=== PATIENT | female | born 1935 | race Caucasian/White ===

== ENCOUNTER 2016-10-02 09:32 | Inpatient (IN) | payer MEDICARE ==
[2016-10-02 09:39] VITALS: BMI 30.9
[2016-10-02] MEDS ORDERED: Sodium Chloride 0.9% 1,000 ML IV STA ×2 (10:31→12:37)
--- NOTE | 2016-10-02 10:41 | ED PDOC ---
HPI: Abdomen Time Seen by Provider: 10/02/16 09:56 Chief Complaint (Nursing): GI Problem Chief Complaint (Provider): GI Problem History Per: Patient, Family History/Exam Limitations: clinical condition Onset/Duration Of Symptoms: Hrs Current Symptoms Are (Timing): Still Present Severity: None Associated Symptoms: Nausea, Vomiting, Diarrhea Exacerbating Factors: None Alleviating Factors: None Additional Complaint(s): Patient is a 81 year old female who presents to ED via EMS for vomiting and diarrhea this morning. History is limited via patient secondary to dementia, history primary obtained by daughter. Reports patient had 4 episodes of non bloody vomiting and 4 episodes of watery non bloody diarrhea with no abdominal pain. Denies fever or chills. Currently in ED reports a headache but notes a history of migraines. PMD:Dr. 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), Dementia, Depression, Diabetes, Fractures (Right wrist and elbow), Gastritis, HTN, Hypercholesterolemia, Hypothyroidism, Migraine, TIA (2013) Denies: Arthritis, HIV, Chronic Kidney Disease Comment Only: Diverticulitis (Diverticulosis) - Surgical History Surgical History: Tonsillectomy (partial thyroidectomy) Denies: CABG - Family History Family History: States: Unknown Family Hx - Living Arrangements Living Arrangements: With Family - Home Medications Home Medications: Ambulatory Orders Medication Instructions Recorded Acetaminophen/Butalbital/Caf 1 tab PO Q8H PRN 08/23/15 [Fioricet] Atorvastatin [Lipitor] 40 mg PO HS 08/23/15 Brimonidine Tartrate/Timolol 1 drop BOTHEYES BID 08/23/15 [Combigan 0.2%-0.5% Eye Drops] Cholecalciferol [Vitamin D 1000 IU] 1,000 units PO DAILY 08/23/15 Clopidogrel [Plavix] 75 mg PO DAILY 08/23/15 Donepezil [Aricept] 10 mg PO HS 08/23/15 Insulin Aspart Protam & Aspart 10 units SC HS 08/23/15 [Novolog Mix 70-30 Vial] Latanoprost 0.005% Opht [Xalatan 1 drop EACHEYE HS 08/23/15 Opht] Levothyroxine [Synthroid] 75 mcg PO DAILY 08/23/15 Meclizine HCl [Antivert] 25 mg PO TID 08/23/15 Memantine [Namenda] 10 mg PO BID 08/23/15 Prednisolone Acetate [Pred Forte] 1 drop BOTHEYES QID 08/23/15 Ramipril 5 mg PO DAILY 08/23/15 Ranitidine HCl [Zantac] 150 mg PO BID 08/23/15 Sertraline [Zoloft] 50 mg PO HS 08/23/15 Docusate [Colace] 200 mg PO HS 10/02/16 Insulin Aspart/Insulin Aspar 50 unit SC BRK 10/02/16 [Novolog Mix 70/30 (70/30 units/ml)] Metoprolol Tartrate [Lopressor] 12.5 mg PO DAILY 10/02/16 Moxifloxacin HCl [Vigamox] 1 drop EACHEYE Q1H 10/02/16 Omeprazole [Omeprazole] 20 mg PO DAILY 10/02/16 cycloSPORINE [Restasis] 1 drop EACHEYE Q12H 10/02/16 - Allergies Allergies/Adverse Reactions: Allergies Allergy/AdvReac Type Severity Reaction Status Date / Time aspirin Allergy NAUSEA Verified 10/02/16 09:59 Sulfa (Sulfonamide Allergy RASH Verified 10/02/16 09:59 Antibiotics) metformin AdvReac DIARRHEA Verified 10/02/16 09:59 Review of Systems ROS Statement: Except As Marked, All Systems Reviewed And Found Negative Constitutional: Negative for: Fever, Chills Cardiovascular: Negative for: Chest Pain Gastrointestinal: Positive for: Nausea, Vomiting, Diarrhea Musculoskeletal: Negative for: Neck Pain Skin: Negative for: Rash Neurological: Positive for: Headache. Negative for: Weakness, Numbness Physical Exam - Reviewed Nursing Documentation Reviewed: Yes Vital Signs Reviewed: Yes - Physical Exam Appears: Positive for: Non-toxic, Uncomfortable Skin: Positive for: Warm, Pallor Eye Exam: Positive for: Normal appearance (chronically blind) Neck: Positive for: Normal, Painless ROM Cardiovascular/Chest: Positive for: Regular Rate, Rhythm. Negative for: Murmur Respiratory: Positive for: Normal Breath Sounds. Negative for: Respiratory Distress Pulses-Radial (L): 2+ Pulses-Radial (R): 2+ Gastrointestinal/Abdominal: Positive for: Normal Exam. Negative for: Tenderness , Distended Extremity: Positive for: Normal ROM. Negative for: Pedal Edema, Calf Tenderness Neurologic/Psych: Positive for: Alert (baseline dementia ), Oriented - Laboratory Results Result Diagrams: 10/02/16 10:40 10/02/16 11:57 - ECG O2 Sat by Pulse Oximetry: 100 (RA) Pulse Ox Interpretation: Normal Medical Decision Making Medical Decision Making: Time: 1030 Initial impression: Acute gastroenteritis, pancreatitis, diverticulitis, SBO, UTI, dehydration, vasal vagus near syncope associated with dehydration Initial plan: -- VBG -- CT-abdomen -- CMP -- Lipase -- Troponin -- CBC -- NSF, Zofran -- Blood culture Time: 1510 CT-abdomen results reviewed PROCEDURE: CT Abdomen and Pelvis without intravenous contrast HISTORY: vomiting and diarrhea COMPARISON: 07/18/2016. TECHNIQUE: Technique. Contrast Dose: Radiation dose: Total exam DLP = 1055 mGy-cm. This CT exam was performed using one or more of the following dose reduction techniques: Automated exposure control, adjustment of the mA and/or kV according to patient size, and/or use of iterative reconstruction technique. FINDINGS: LOWER THORAX: Unremarkable. LIVER: Unremarkable. No gross lesion or ductal dilatation. GALLBLADDER AND BILE DUCTS: Unremarkable. PANCREAS: Unremarkable. No gross lesion or ductal dilatation. SPLEEN: Unremarkable. ADRENALS: Unremarkable. No mass. KIDNEYS AND URETERS: Unremarkable. No hydronephrosis. No solid mass. VASCULATURE: Unremarkable. No aortic aneurysm. BOWEL: Unremarkable. No obstruction. No gross mural thickening. APPENDIX: Unremarkable. Normal appendix. PERITONEUM: Unremarkable. No free fluid. No free air. LYMPH NODES: Unremarkable. No enlarged lymph nodes. BLADDER: Unremarkable. REPRODUCTIVE: Pessary in place. Stable left ovarian cyst measuring 2.2 cm.. BONES: No acute fracture. OTHER FINDINGS: None. IMPRESSION: No acute findings. Scribe Attestation: Documented by Ayaka Mascorro acting as a scribe for Ricky Dennis MD MD Scribe Attestation: All medical record entries made by the Scribe were at my direction and personally dictated by me. I have reviewed the chart and agree that the record accurately reflects my personal performance of the history, physical exam, medical decision making, and the department course for this patient. I have also personally directed, reviewed, and agree with the discharge instructions and disposition. Disposition - Clinical Impression Clinical Impression: Gastroenteritis, Sepsis, Severe sepsis - Patient ED Disposition Is Patient to be Admitted: Yes Discussed With Dr.: Morris Mcginnis Doctor Will See Patient In The: ED Counseled Patient/Family Regarding: Studies Performed, Diagnosis - Disposition Disposition Time: 15:30 Condition: FAIR - Pt Status Changed To: Hospital Disposition Of: Inpatient - Admit Certification Admit to Inpatient:: After my assessment, the patient will require hospitalization for at least two midnights. This is because of the severity of symptoms shown, intensity of services needed, and/or the medical risk in this patient being treated as an outpatient. - POA Present On Arrival: Poor Glycemic Control
[2016-10-02 10:47] LABS: BASO # 0.1 K/uL (0.0-0.2); BASO % 0.3 % (0.0-2.0); EOS # 0.1 K/uL (0.0-0.7); EOS % 0.5 % (0.0-4.0); LYMPH # 1.5 K/uL (1.0-4.3); LYMPH % 7.7 % (20.0-40.0); MEAN CELL VOLUME 89.4 fl (81.0-99.0); MEAN CORPUSCULAR HEMOGLOBIN 29.8 pg (27.0-31.0); MEAN CORPUSCULAR HGB CONC 33.3 g/dL (33.0-37.0); MEAN PLATELET VOLUME 10.6 fl (7.2-11.7); MONO # 1.9 K/uL (0.0-0.8); MONO % 9.9 % (0.0-10.0); NEUT % 81.6 % (50.0-75.0); NRBC % 0.1 % (0.0-0.0); PLATELET COUNT 352 K/uL (130-400); RED CELL DISTRIBUTION WIDTH 13.6 % (11.5-14.5)
[2016-10-02 10:49] LABS: WHITE BLOOD COUNT 19.6 K/uL (4.8-10.8)
[2016-10-02 11:23] LABS: VENOUS BLOOD GAS BASE EXCESS -0.2 mmol/L (0.0-2.0); VENOUS BLOOD GAS PCO2 47 mmHg (40-60); VENOUS BLOOD PH 7.35 (7.32-7.43)
[2016-10-02 11:53] LABS: NEUTROPHIL 78 % (42-75); TOTAL CELLS COUNTED 100
[2016-10-02 12:22] LABS: ALKALINE PHOSPHATASE 87 U/L (38-126); ALT/SGPT 25 U/L (9-52); AST/SGOT 38 U/L (14-36); BILIRUBIN,TOTAL 0.4 mg/dl (0.2-1.3); BLOOD UREA NITROGEN 26 mg/dl (7-17); CALCIUM 8.9 mg/dL (8.4-10.2); CARBON DIOXIDE 27 mmol/L (22-30); CHLORIDE 102 mmol/L (98-107); GFR AFRICAN-AMERICAN > 60; GLUCOSE,RANDOM 172 mg/dL (65-105); POTASSIUM 4.4 MMOL/L (3.6-5.0); SODIUM 142 mmol/l (132-148); TOTAL PROTEIN 7.6 G/DL (6.3-8.2)
[2016-10-02] MEDS ORDERED: Piperacillin/Tazobact 3.375 GM in Sodium Chloride 0.9% 100 ML IVPB STA (12:37)
[2016-10-02] MEDS ORDERED: Piperacillin/Tazobact 3.375 gm Inj IVPB ONE (12:53)
[2016-10-02] MEDS ORDERED: Vancomycin 1 g Inj ONE (12:54)
[2016-10-02] MEDS ORDERED: Iohexol 300 100 ML IJ ONE (13:48)
[2016-10-02] MEDS ORDERED: Sodium Chloride 0.9% 50 ML IV ONE (13:48)
--- NOTE | 2016-10-02 14:58 | CT ---
PROCEDURE: CT Abdomen and Pelvis without intravenous contrast HISTORY: vomiting and diarrhea COMPARISON: 07/18/2016. TECHNIQUE: Technique. Contrast Dose: Radiation dose: Total exam DLP = 1055 mGy-cm. This CT exam was performed using one or more of the following dose reduction techniques: Automated exposure control, adjustment of the mA and/or kV according to patient size, and/or use of iterative reconstruction technique. FINDINGS: LOWER THORAX: Unremarkable. LIVER: Unremarkable. No gross lesion or ductal dilatation. GALLBLADDER AND BILE DUCTS: Unremarkable. PANCREAS: Unremarkable. No gross lesion or ductal dilatation. SPLEEN: Unremarkable. ADRENALS: Unremarkable. No mass. KIDNEYS AND URETERS: Unremarkable. No hydronephrosis. No solid mass. VASCULATURE: Unremarkable. No aortic aneurysm. BOWEL: Unremarkable. No obstruction. No gross mural thickening. APPENDIX: Unremarkable. Normal appendix. PERITONEUM: Unremarkable. No free fluid. No free air. LYMPH NODES: Unremarkable. No enlarged lymph nodes. BLADDER: Unremarkable. REPRODUCTIVE: Pessary in place. Stable left ovarian cyst measuring 2.2 cm.. BONES: No acute fracture. OTHER FINDINGS: None. IMPRESSION: No acute findings.
[2016-10-02 17:38] LABS: VENOUS BLOOD GAS BASE EXCESS 1.3 mmol/L (0.0-2.0); VENOUS BLOOD GAS PCO2 47 mmHg (40-60); VENOUS BLOOD PH 7.37 (7.32-7.43)
[2016-10-02] MEDS ORDERED: Patient's Own Med (Brimonidine Tartrate/Timolol [Combigan 0.2%-0.5% Eye Drops] 1 DROP) BOTHEYES SCH (20:00)
[2016-10-02] MEDS: Dextrose 5%/Lactated Ringer's 1,000 ML IV SCH (20:44)
[2016-10-02] MEDS: Piperacillin/Tazobact 3.375 GM in Sodium Chloride 0.9% 100 ML IVPB SCH (21:49)
[2016-10-02] MEDS: Latanoprost 0.005% Opht SOUTION OU SCH (21:50)
[2016-10-02] MEDS: PrednisoLONE 1% OPTH SUSP OU SCH (21:50)
[2016-10-02] MEDS: Insulin Regular 100 units/ml SC SCH (22:03)
[2016-10-02] MEDS: Brimonidine 0.2% 50 DROP/5 ML BOTTLE OU SCH (22:26)
[2016-10-03] MEDS: Insulin Regular 100 units/ml SC SCH ×4 (06:22→23:13)
--- NOTE | 2016-10-03 06:54 | CP.PCM.HP ---
History of Present Illness - History of Present Illness History of Present Illness: 81F seen and examined at bedside with attending. Daughter at bedside and provides history. Pt admitted last night and seen this morning. Daughter reports mother was in usual state of health when she developed acute onset of NBNB vomiting and non- bloody diarrhea after "eating a lot of fruit with the sitter". Daughter denies any prodrome of fevers, chills, urinary symptoms, sick contacts, but is positive for antibiotic use for UTI. 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), Hypothyroid (after surgery), Pancreatic Mass, currently RIGHT corneal ulcer PSH: b/l corneal transplant, partial thyroidectomy, Rt breast lumpectomy (benign ) Allergies: ASA, Metformin, Sulfa drugs Medications: See Med Rec Present on Admission - Present on Admission Any Indicators Present on Admission: No Review of Systems - Review of Systems Review of Systems: As per HPI Past Patient History - Infectious Disease Hx of Infectious Diseases: None - Tetanus Immunizations Tetanus Immunization: Unknown - Past Medical History & Family History Past Medical History?: Yes - Past Social History Smoking Status: Never Smoked - CARDIAC Hx Cardiac Disorders: Yes (high cholesterol, HTN) Hx Hypercholesterolemia: Yes Hx Hypertension: Yes - PULMONARY Hx Respiratory Disorders: No - NEUROLOGICAL Hx Neurological Disorder: Yes (TIA, dementia, migraine) Hx Alzheimer's Disease: Yes HX Cerebrovascular Accident: Yes Hx Dementia: Yes - HEENT Hx HEENT Problems: Yes - RENAL Hx Chronic Kidney Disease: No - ENDOCRINE/METABOLIC Hx Endocrine Disorders: Yes (DM) Hx Diabetes Mellitus Type 2: Yes - HEMATOLOGICAL/ONCOLOGICAL Hx Blood Disorders: No Hx Blood Transfusions: No Hx Human Immunodeficiency Virus (HIV): No - INTEGUMENTARY Hx Dermatological Problems: Yes - MUSCULOSKELETAL/RHEUMATOLOGICAL Hx Musculoskeletal Disorders: Yes Hx Arthritis: No Hx Falls: Yes Hx Fractures: Yes (Right wrist and elbow) - GASTROINTESTINAL Hx Gastrointestinal Disorders: Yes Hx Diverticulitis: Yes (Diverticulosis) Hx Gastritis: Yes - GENITOURINARY/GYNECOLOGICAL Hx Genitourinary Disorders: Yes Hx Incontinence: Yes - PSYCHIATRIC Hx Psychophysiologic Disorder: Yes (anxiety, depression) Hx Anxiety: Yes Hx Depression: Yes Hx Substance Use: No - SURGICAL HISTORY Hx Surgeries: Yes Hx Coronary Artery Bypass Graft: No Hx Thyroidectomy: Yes Hx Tonsillectomy: Yes (partial thyroidectomy) - ANESTHESIA Hx Anesthesia: Yes Hx Anesthesia Reactions: Yes (HALLUCINATION, CONFUSION) Hx Malignant Hyperthermia: No Meds Allergies/Adverse Reactions: Allergies Allergy/AdvReac Type Severity Reaction Status Date / Time aspirin Allergy NAUSEA Verified 10/02/16 09:59 Sulfa (Sulfonamide Allergy RASH Verified 10/02/16 09:59 Antibiotics) metformin AdvReac DIARRHEA Verified 10/02/16 09:59 Physical Exam - Constitutional Appears: Well, Non-toxic, No Acute Distress - Head Exam Head Exam: ATRAUMATIC, NORMAL INSPECTION - Eye Exam Eye Exam: EOMI. absent: Normal appearance (opacity in b/l eyes) - ENT Exam ENT Exam: Mucous Membranes Moist, Normal Exam - Neck Exam Neck exam: Positive for: Normal Inspection. Negative for: Lymphadenopathy - Respiratory Exam Respiratory Exam: Clear to Auscultation Bilateral, NORMAL BREATHING PATTERN. absent: Rales, Wheezes - Cardiovascular Exam Cardiovascular Exam: REGULAR RHYTHM. absent: JVD - GI/Abdominal Exam GI & Abdominal Exam: Normal Bowel Sounds, Soft. absent: Tenderness - Extremities Exam Extremities exam: Positive for: normal capillary refill, normal inspection, pedal pulses present. Negative for: pedal edema - Neurological Exam Neurological exam: Alert (Baseline dementia) - Psychiatric Exam Psychiatric exam: Normal Affect, Normal Mood - Skin Skin Exam: Normal Color, Warm Results - Vital Signs Recent Vital Signs: Last Vital Signs Temp 36.9 C 10/03/16 04:45 Pulse 61 10/03/16 04:45 Resp 20 10/03/16 04:45 BP 145/77 10/03/16 04:45 Pulse Ox 98 10/03/16 04:45 - Labs Result Diagrams: 10/03/16 06:50 10/03/16 08:09 Labs: Laboratory Results - last 24 hr 10/02/16 10/02/16 10/03/16 17:30 21:53 05:02 pO2 30 VBG pH 7.37 VBG pCO2 47 VBG HCO3 24.8 VBG O2 Sat (Calc) 64.5 VBG Base Excess 1.3 POC Glucose (mg/dL) 144 H 201 H Assessment & Plan (1) Nausea, vomiting, and diarrhea Assessment and Plan: Likely a mild gastroenteritis with corresponding volume depletion and stress leukocytosis all of which have resolved. Unlikely requires antibiotics, but will await Dr Berger's recommendations. CT negative for acute pathology, repeat Lactate- 1.1 - ID Consult (Dr Berger) - Start PO intake - discontinue IVF - Vanc/Zosyn Status: Acute (2) DVT prophylaxis Assessment and Plan: Lovenox 40mg, SC, Daily Status: Acute (3) Diabetes Assessment and Plan: Controlled - SSI - Accu-check - Hypoglycemia Bundle Status: Chronic (4) Hypertension Assessment and Plan: Controlled, c/w home medications Status: Chronic (5) Hypothyroidism (acquired) Assessment and Plan: chronic, c/w home medications Status: Chronic (6) CVA (cerebral vascular accident) Assessment and Plan: Stable no motor deficits only the dementia, c/w Plavix Status: Chronic
[2016-10-03 07:21] LABS: MEAN CELL VOLUME 89.9 fl (81.0-99.0); MEAN CORPUSCULAR HEMOGLOBIN 29.8 pg (27.0-31.0); MEAN CORPUSCULAR HGB CONC 33.2 g/dL (33.0-37.0); RED CELL DISTRIBUTION WIDTH 13.5 % (11.5-14.5); WHITE BLOOD COUNT 10.6 K/uL (4.8-10.8)
[2016-10-03 08:40] LABS: ALKALINE PHOSPHATASE 87 U/L (38-126); ALT/SGPT 24 U/L (9-52); AST/SGOT 30 U/L (14-36); BILIRUBIN,TOTAL 0.4 mg/dl (0.2-1.3); BLOOD UREA NITROGEN 19 mg/dl (7-17); CALCIUM 8.6 mg/dL (8.4-10.2); CARBON DIOXIDE 23 mmol/L (22-30); CHLORIDE 105 mmol/L (98-107); GFR AFRICAN-AMERICAN > 60; GLUCOSE,RANDOM 190 mg/dL (65-105); POTASSIUM 4.2 MMOL/L (3.6-5.0); SODIUM 142 mmol/l (132-148); TOTAL PROTEIN 7.1 G/DL (6.3-8.2)
[2016-10-03] MEDS ORDERED: Pantoprazole 40 mg EC Tab PO SCH (09:00)
[2016-10-03] MEDS ORDERED: Vancomycin 1 g Inj IVPB SCH (09:00)
[2016-10-03] MEDS: Brimonidine 0.2% 50 DROP/5 ML BOTTLE OU SCH ×2 (09:33→16:35)
[2016-10-03] MEDS: Dextrose 5%/Lactated Ringer's 1,000 ML IV SCH (09:35)
[2016-10-03] MEDS: Levothyroxine 75 MCG TAB PO SCH (09:36)
[2016-10-03] MEDS: PrednisoLONE 1% OPTH SUSP OU SCH ×3 (09:36→16:37)
[2016-10-03] MEDS: Piperacillin/Tazobact 3.375 GM in Sodium Chloride 0.9% 100 ML IVPB SCH ×2 (09:37→21:35)
[2016-10-03] MEDS ORDERED: Glucagon Recombinant 1 mg Inj IM PRN (10:26)
[2016-10-03] MEDS ORDERED: Dextrose 50% SYRINGE Inj (50 ml) IV PRN (10:26)
[2016-10-03] MEDS: Enoxaparin 40 mg Syringe SC SCH (16:41)
--- NOTE | 2016-10-03 18:55 | CON ---
DATE: 10/03/2016 On in room 406, bed 2. HISTORY OF PRESENT ILLNESS: The patient is an 81-year-old female who was admitted last night after having had awakened that morning and had some nausea, vomiting and diarrhea. She apparently had a significant amount of vomiting with un-digested food and according to daughter, who gave the history, had a significant amount of eating the night before. The diarrhea was in at least 4 times, but there was no blood. According to the daughter, there is no history of fever or chills. On history she had been taking antibiotics in June. Of note, the patient is blind. PAST MEDICAL HISTORY: Includes hypertension, diabetes, dementia, CVA, deficit apparently is dementia. She has a bladder prolapse with pessary in place, also has a pancreatic mass according to the history, not noted on the CT scan. PHYSICAL EXAMINATION: GENERAL: The patient is awake and responsive, but does not respond appropriately. Again history was taken from the daughter. NECK: Supple. LUNGS: There are decreased breath sounds at bases, but no wheezes or rhonchi. HEART: Regular sinus rhythm. ABDOMEN: Basically soft with positive bowel sounds. Does not appear to have any tenderness. EXTREMITIES: No C/C/E. NEUROLOGIC: Basically dementia. LABORATORY DATA: Cultures are pending; those that were taken are so far negative. BUN 19, creatinine 0.7, GFR greater than that 60. Blood sugars are elevated at 297. White count was 19.6 on admission, today was 10.6. There is a left shift. ESR is 51. CT scan impression: Normal CT scan. IMPRESSION: The patient has improved today. There is no nausea or vomiting, according to the daughter, has not had diarrhea today and it appears to be resolving. History of diabetes which is noted and hypothyroidism and is on medications. Her white count has gone down significantly. The patient is doing quite well so far, likely an acute gastroenteritis versus basically food poisoning. I have ordered stool cultures. Will discontinue vancomycin and will continue with Zosyn for the present time and re evaluatewithin 48 hours Mega Berger MD cc: 61 TT: 10/03/2016 18:54:59 Confirmation # [id number] Dictation # [id number] MTDD
[2016-10-03 20:05] VITALS: RESP 18
[2016-10-03] MEDS: MOXIFLOXACIN HCL EACHEYE SCH ×5 (21:31→23:10)
[2016-10-03] MEDS: Latanoprost 0.005% Opht SOUTION OU SCH (21:33)
[2016-10-03 22:38] LABS: PH,URINE 5.5 (5.0-8.0); URINE BILIRUBIN NEGATIVE (NEGATIVE); URINE BLOOD NEGATIVE (NEGATIVE); URINE COLOR YELLOW (YELLOW); URINE GLUCOSE (UA) 500 mg/dL (Normal); URINE KETONE NEGATIVE (NEGATIVE); URINE LEUKOCYTE ESTERASE TRACE Leu/uL (Negative); URINE PROTEIN NEGATIVE (NEGATIVE); URINE UROBILINOGEN 0.2 mg/dL (0.2-1.0)
[2016-10-03 22:39] LABS: RBC URINE 1 /hpf (0-3); RENAL EPITHELIAL 1 /hpf (0-3); URINE BACTERIA FEW (<OCC); WBC URINE 2 /hpf (0-5)
[2016-10-04] MEDS: MOXIFLOXACIN HCL EACHEYE SCH ×8 (01:00→06:56)
[2016-10-04 06:34] LABS: BASO % 0.5 % (0.0-2.0); EOS # 0.1 K/uL (0.0-0.7); HEMATOCRIT 33.4 % (34.0-47.0); LYMPH # 2.1 K/uL (1.0-4.3); LYMPH % 28.7 % (20.0-40.0); MEAN CELL VOLUME 91.1 fl (81.0-99.0); MEAN CORPUSCULAR HEMOGLOBIN 29.4 pg (27.0-31.0); MEAN CORPUSCULAR HGB CONC 32.3 g/dL (33.0-37.0); MEAN PLATELET VOLUME 10.2 fl (7.2-11.7); MONO # 0.6 K/uL (0.0-0.8); MONO % 8.5 % (0.0-10.0); NEUT # 4.4 K/uL (1.8-7.0); NEUT % 60.3 % (50.0-75.0); RED CELL DISTRIBUTION WIDTH 13.6 % (11.5-14.5); WHITE BLOOD COUNT 7.3 K/uL (4.8-10.8)
[2016-10-04 06:51] LABS: ALKALINE PHOSPHATASE 76 U/L (38-126); ALT/SGPT 33 U/L (9-52); AST/SGOT 21 U/L (14-36); BILIRUBIN,TOTAL 0.3 mg/dl (0.2-1.3); BLOOD UREA NITROGEN 15 mg/dl (7-17); CALCIUM 8.3 mg/dL (8.4-10.2); CARBON DIOXIDE 22 mmol/L (22-30); CHLORIDE 103 mmol/L (98-107); GFR AFRICAN-AMERICAN > 60; POTASSIUM 4.1 MMOL/L (3.6-5.0); SODIUM 141 mmol/l (132-148)
[2016-10-04 07:08] LABS: GLUCOSE,RANDOM 532 mg/dL (65-105)
[2016-10-04 07:57] VITALS: PULSE 72
[2016-10-04] MEDS: Brimonidine 0.2% 50 DROP/5 ML BOTTLE OU SCH (11:56)
[2016-10-04 12:15] VITALS: BP 160/75; TEMP 98.7; O2SAT 96
--- NOTE | 2016-10-04 12:24 | PQF GENQUE ---
Dr. Mcginnis, The diagnosis of Sepsis was dropped :Sepsis ruled in or Sepsis ruled out? ER MD: Clinical Impression:Gastroenteritis, Sepsis, Severe sepsis WBC: 19.6->10.6 left shift ABG lactate:2.9 10/02: b/p:138/67->84/41->135/65->133/57 IVF's, IVAB's stool studies ordered This form is a permanent part of the medical record Clarification of your documentation is requested to better reflect the severity of illness and intensity of treatment of your patient. Indicators present [] Specify: [] [] Specify: [] [] Specify: [] [] Specify: [] Location in the medical record that reflects the above clinical findings: [] Treatment Provided: [] PHYSICIAN'S RESPONSE Based on your medical judgment of the clinical indicators outlined above please clarify the following: [] Practitioner response [] If unable to determine, please check the box, sign and date. Present On Admission (POA) Indicator: [] Present at the time of admission [] Not present at the time of admission [] Clinically Undetermined In responding to this query, please exercise your independent professional judgment. The fact that a question is asked does not imply that any particular answer is desired or expected. Thank you for your clarification on this documentation. If you have any questions please call. * Thank you, Awilda Cruz RN BSN ext. #[phone] MTDX
[2016-10-04] MEDS: Levothyroxine 75 MCG TAB PO SCH (12:43)
[2016-10-04] MEDS: Insulin Regular 100 units/ml SC SCH ×2 (12:44→12:45)
[2016-10-04] MEDS: Enoxaparin 40 mg Syringe SC SCH (12:56)
[2016-10-04] MEDS: PrednisoLONE 1% OPTH SUSP OU SCH ×2 (12:58→12:59)
[2016-10-04] MEDS ORDERED: Insulin Lispro (humaLOG) 100 Units/ml Inj SC ONE (14:24)
[2016-10-04] MEDS: Piperacillin/Tazobact 3.375 GM in Sodium Chloride 0.9% 100 ML IVPB SCH (14:50)
== END 2016-10-04 15:50 | disposition home health service (06) | DRG 392 ==
LOC: H.ER 09:32 → H.ERHOLD 15:29 → H.TEL 17:36
PROVIDERS: ADMIT Family Medicine; ATTEND Family Medicine
DX: K52.9 Noninfective gastroenteritis and colitis, unspecified (principal); E86.0 Dehydration; G30.9 Alzheimer's disease, unspecified; E11.9 Type 2 diabetes mellitus without complications; F01.50 Vascular dementia, unspecified severity, without behavioral disturbance, psychotic disturbance, mood disturbance, and anxiety; K57.92 Diverticulitis of intestine, part unspecified, without perforation or abscess without bleeding; I10 Essential (primary) hypertension; Z86.73 Personal history of transient ischemic attack (TIA), and cerebral infarction without residual deficits; E03.9 Hypothyroidism, unspecified; K29.70 Gastritis, unspecified, without bleeding; F41.8 Other specified anxiety disorders; F32.89 Other specified depressive episodes; N81.10 Cystocele, unspecified; G43.909 Migraine, unspecified, not intractable, without status migrainosus; E78.00 Pure hypercholesterolemia, unspecified; F02.80 Dementia in other diseases classified elsewhere, unspecified severity, without behavioral disturbance, psychotic disturbance, mood disturbance, and anxiety; H16.001 Unspecified corneal ulcer, right eye; Z88.2 Allergy status to sulfonamides; Z87.440 Personal history of urinary (tract) infections

== ENCOUNTER 2016-12-12 15:32 | Observation (INO) | payer MEDICARE ==
[2016-12-12 15:33] VITALS: BMI 30.9
[2016-12-12] MEDS ORDERED: Albuterol-Ipratrop 3 mg / 0.5 (3 ml) UD INH STA ×2 (16:43→18:25)
[2016-12-12 16:44] LABS: VENOUS BLOOD GAS BASE EXCESS 4.3 mmol/L (0.0-2.0); VENOUS BLOOD GAS PCO2 47 mmHg (40-60); VENOUS BLOOD GAS PO2 35 mm/Hg (30-55); VENOUS BLOOD PH 7.41 (7.32-7.43)
--- NOTE | 2016-12-12 16:46 | ED PDOC ---
HPI: CCC, URI, Sore Throat Time Seen by Provider: 12/12/16 15:40 Chief Complaint (Nursing): Abdominal Pain Chief Complaint (Provider): Cough History Per: Patient, Family (daughter), Other (home sitter) History/Exam Limitations: no limitations Onset/Duration Of Symptoms: Days (5x) Current Symptoms Are (Timing): Still Present Associated Symptoms: Cough, Other (chest pain) Severity: Moderate Additional Complaint(s): 81 year old female with a pertinent medical history of dementia (with some lucid moments, as per daughter) is brought into the ED by her daughter for a cough that started 5x days ago. Her at home sitter reports that she has had a mild cough for 5x days and complains of chest pain and bilateral rib pain. The patient fell yesterday, but was acting normally and ambulating after, so she was not evaluated. She denies having fevers. 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), Dementia, Depression, Diabetes, Diverticulitis (Diverticulosis), Fractures (Right wrist and elbow), Gastritis, HTN, Hypercholesterolemia, Hypothyroidism, Migraine, TIA (2013) Denies: Arthritis, HIV, Chronic Kidney Disease - Surgical History Surgical History: Tonsillectomy (partial thyroidectomy) Denies: CABG - Family History Family History: States: Unknown Family Hx - Home Medications Home Medications: Ambulatory Orders Medication Instructions Recorded Acetaminophen/Butalbital/Caf 1 tab PO Q8H PRN 08/23/15 [Fioricet] Atorvastatin [Lipitor] 40 mg PO HS 08/23/15 Brimonidine Tartrate/Timolol 1 drop BOTHEYES BID 08/23/15 [Combigan 0.2%-0.5% Eye Drops] Cholecalciferol [Vitamin D 1000 IU] 1,000 units PO HS 08/23/15 Clopidogrel [Plavix] 75 mg PO DAILY 08/23/15 Donepezil [Aricept] 10 mg PO HS 08/23/15 Insulin Aspart Prot/Insuln Asp 10 units SC DIN 08/23/15 [Novolog Mix 70-30 Vial] Latanoprost 0.005% Opht [Xalatan 1 drop EACHEYE HS 08/23/15 Opht] Levothyroxine [Synthroid] 75 mcg PO DAILY 08/23/15 Meclizine HCl [Antivert] 25 mg PO TID PRN 08/23/15 Memantine [Namenda] 10 mg PO BID 08/23/15 Prednisolone Acetate [Pred Forte] 1 drop BOTHEYES QID 08/23/15 Ramipril 5 mg PO DAILY 08/23/15 Ranitidine HCl [Zantac] 150 mg PO BID 08/23/15 Sertraline [Zoloft] 50 mg PO HS 08/23/15 Docusate [Colace] 200 mg PO HS 10/02/16 Insulin Aspart/Insulin Aspar 50 unit SC BRK 10/02/16 [Novolog Mix 70/30 (70/30 units/ml)] Metoprolol Tartrate [Lopressor] 12.5 mg PO DAILY PRN 10/02/16 Moxifloxacin HCl [Vigamox] 1 drop EACHEYE Q1H 10/02/16 cycloSPORINE [Restasis] 1 drop EACHEYE Q12H 10/02/16 Levofloxacin [Levaquin] 750 mg PO DAILY #7 tablet 12/13/16 - Allergies Allergies/Adverse Reactions: Allergies Allergy/AdvReac Type Severity Reaction Status Date / Time aspirin Allergy NAUSEA Verified 12/12/16 15:41 Sulfa (Sulfonamide Allergy RASH Verified 12/12/16 15:41 Antibiotics) metformin AdvReac DIARRHEA Verified 12/12/16 15:41 Review of Systems ROS Statement: Except As Marked, All Systems Reviewed And Found Negative Constitutional: Negative for: Fever Cardiovascular: Positive for: Chest Pain Respiratory: Positive for: Cough Musculoskeletal: Positive for: Other (bilateral rib pain) Physical Exam - Reviewed Nursing Documentation Reviewed: Yes Vital Signs Reviewed: Yes - Physical Exam Appears: Positive for: Well, Non-toxic, No Acute Distress Head Exam: Positive for: ATRAUMATIC, NORMOCEPHALIC Skin: Positive for: Normal Color, Warm, Dry Cardiovascular/Chest: Positive for: Regular Rate, Rhythm Respiratory: Positive for: Wheezing (mild bilateral wheeze). Negative for: Respiratory Distress Gastrointestinal/Abdominal: Positive for: Normal Exam, Soft. Negative for: Tenderness, Distended Extremity: Positive for: Normal ROM, Other (moving all extremities) Neurologic/Psych: Positive for: Alert, Other (speaking in full sentences) - Laboratory Results Result Diagrams: 12/13/16 06:30 12/13/16 06:30 - ECG Interpretation Of ECG: NSR @ 81, no ST-T changes. O2 Sat by Pulse Oximetry: 93 (RA) Pulse Ox Interpretation: Abnormal - Physician Consult Information Physician Contacted: Morris Mcginnis Outcome Of Conversation: Admit. Nebulizer Treatments/Peak Flow - Duonebs Number of Bronchodilator Doses given?: 1 - Pre/Post Peak Flow Pre Treatment Peak Flow: 1 Post treatment Peak Flow: 1 - Steroid Treatment Steroid: Not Clinically Indicated - Clinical Response Clinical Response: Improved Medical Decision Making Medical Decision Makin:40 Initial impression: 81 year old female with a cough. Differential diagnoses include but are not limited to pneumonia, bronchitis, and chest pain. Initial plan: * XRay chest * VBG shock panel * EKG * b-type natriuretic peptide * CMP * troponin I * udip * CBC * PT/PTT * duoneb 3ml INH * blood culture * peak flow pre post treatment * urinalysis * reevaluation Scribe Attestation: Documented by Jayshree Dumont, acting as a scribe for Zeny Barrow MD. Provider Scribe Attestation: All medical record entries made by the Scribe were at my direction and personally dictated by me. I have reviewed the chart and agree that the record accurately reflects my personal performance of the history, physical exam, medical decision making, and the department course for this patient. I have also personally directed, reviewed, and agree with the discharge instructions and disposition. Disposition - Clinical Impression Clinical Impression: Urinary tract infection, Pneumonia - Patient ED Disposition Is Patient to be Admitted: Yes - Disposition Disposition Time: 18:56 Condition: STABLE - Pt Status Changed To: Hospital Disposition Of: Inpatient - Admit Certification Admit to Inpatient:: After my assessment, the patient will require hospitalization for at least two midnights. This is because of the severity of symptoms shown, intensity of services needed, and/or the medical risk in this patient being treated as an outpatient. - POA Present On Arrival: Poor Glycemic Control
[2016-12-12 16:51] LABS: ALB/GLOB RATIO 1.2 (1.0-2.1); ALBUMIN 4.6 g/dL (3.5-5.0); ALT/SGPT 40 U/L (9-52); AST/SGOT 34 U/L (14-36); BLOOD UREA NITROGEN 17 mg/dl (7-17); CALCIUM 9.5 mg/dL (8.4-10.2); GFR AFRICAN-AMERICAN > 60; GFR NON-AFRICAN AMERICAN > 60
[2016-12-12 16:52] LABS: BASO % 0.4 % (0.0-2.0); EOS # 0.3 K/uL (0.0-0.7); HEMOGLOBIN 12.1 g/dL (12.0-16.0); LYMPH # 2.1 K/uL (1.0-4.3); MEAN CELL VOLUME 89.3 fl (81.0-99.0); WHITE BLOOD COUNT 10.3 K/uL (4.8-10.8)
[2016-12-12 16:56] LABS: EOS % 2.7 % (0.0-4.0); LYMPH % 20.6 % (20.0-40.0); MEAN CORPUSCULAR HEMOGLOBIN 29.5 pg (27.0-31.0); MEAN PLATELET VOLUME 9.9 fl (7.2-11.7); NEUT # 6.8 K/uL (1.8-7.0); NEUT % 66.3 % (50.0-75.0); NRBC % 0.1 % (0.0-0.0); RBC 4.11 Mil/uL (3.80-5.20); RED CELL DISTRIBUTION WIDTH 13.5 % (11.5-14.5)
--- NOTE | 2016-12-12 16:56 | RAD ---
HISTORY: Cough COMPARISON: Chest x-ray performed 01/19/15 TECHNIQUE: Chest, one view. FINDINGS: Examination limited by habitus and hypoinflation. LUNGS: Bibasilar atelectasis or infiltrates. Please note that chest x-ray has limited sensitivity for the detection of pulmonary masses. PLEURA: No significant pleural effusion identified. No definite pneumothorax . CARDIOVASCULAR: Heart size appears within normal limits. OSSEOUS STRUCTURES: Degenerative changes of the spine and shoulders. Acromioclavicular arthropathy. Evidence of right shoulder calcific tendinitis. VISUALIZED UPPER ABDOMEN: Unremarkable. OTHER FINDINGS: None. IMPRESSION: Bibasilar atelectasis or infiltrates.
[2016-12-12 17:03] LABS: B-TYPE NATRIURETIC PEPTIDE 1150 pg/ml (0-900)
[2016-12-12] MEDS ORDERED: Albuterol-Ipratrop 3 mg / 0.5 (3 ml) UD ONE ×2 (17:32→18:22)
[2016-12-12 17:34] LABS: PARTIAL THROMBOPLASTIN TIME 27.7 Seconds (25.6-37.1); PROTHROMBIN TIME 11.7 Seconds (9.8-13.1)
[2016-12-12] MEDS ORDERED: Azithromycin 500 MG in Sodium Chloride 0.9% 250 ML IV STA (17:56)
[2016-12-12 17:59] LABS: SQUAMOUS EPITHIAL 1 /hpf (0-5); URINE BACTERIA FEW (<OCC); URINE BILIRUBIN NEGATIVE (NEGATIVE); URINE BLOOD NEGATIVE (NEGATIVE); URINE CLARITY SLIGHTY-CLOUDY (Clear); URINE COLOR YELLOW (YELLOW); URINE GLUCOSE (UA) >=500 mg/dL (Normal); URINE LEUKOCYTE ESTERASE LARGE Leu/uL (Negative); URINE NITRATE NEGATIVE (NEGATIVE); URINE PROTEIN 100 mg/dL (NEGATIVE); URINE UROBILINOGEN 0.2-1.0 mg/dL (0.2-1.0)
[2016-12-12] MEDS ORDERED: cefTRIAXone (Rocephin) 1 gm Inj ONE (18:09)
[2016-12-12] MEDS ORDERED: Apap-Butalbital-Caffeine 325-50-40mg Tab PO PRN (22:35)
[2016-12-12] MEDS: MOXIFLOXACIN HCL EACHEYE SCH (22:45)
[2016-12-13] MEDS: MOXIFLOXACIN HCL EACHEYE SCH ×13 (00:45→22:25)
[2016-12-13] MEDS: Patient's Own Med (Cyclosporine [Restasis] 1 DROP) EACHEYE SCH ×3 (02:02→22:10)
[2016-12-13] MEDS: Levothyroxine 75 MCG TAB PO SCH (05:55)
[2016-12-13 07:16] LABS: BASO % 0.2 % (0.0-2.0); EOS # 0.2 K/uL (0.0-0.7); EOS % 1.5 % (0.0-4.0); HEMOGLOBIN 11.1 g/dL (12.0-16.0); LYMPH # 2.5 K/uL (1.0-4.3); LYMPH % 22.7 % (20.0-40.0); MEAN CELL VOLUME 90.1 fl (81.0-99.0); MEAN CORPUSCULAR HEMOGLOBIN 29.9 pg (27.0-31.0); MEAN CORPUSCULAR HGB CONC 33.2 g/dL (33.0-37.0); MEAN PLATELET VOLUME 9.6 fl (7.2-11.7); MONO # 1.1 K/uL (0.0-0.8); MONO % 9.7 % (0.0-10.0); NEUT # 7.2 K/uL (1.8-7.0); NEUT % 65.9 % (50.0-75.0); RBC 3.7 Mil/uL (3.80-5.20); RED CELL DISTRIBUTION WIDTH 13.6 % (11.5-14.5); WHITE BLOOD COUNT 10.9 K/uL (4.8-10.8)
[2016-12-13 07:26] LABS: ALB/GLOB RATIO 1.1 (1.0-2.1); ALBUMIN 3.9 g/dL (3.5-5.0); ALT/SGPT 35 U/L (9-52); AST/SGOT 35 U/L (14-36); BLOOD UREA NITROGEN 16 mg/dl (7-17); GFR AFRICAN-AMERICAN > 60; GFR NON-AFRICAN AMERICAN > 60
[2016-12-13] MEDS: Albuterol-Ipratrop 3 mg / 0.5 (3 ml) UD INH SCH ×3 (07:27→19:37)
[2016-12-13] MEDS ORDERED: [UNRECOGNIZED DRUG - OTHER] SC SCH (08:00)
[2016-12-13] MEDS ORDERED: INSULIN ASPART SC SCH (08:00)
[2016-12-13] MEDS ORDERED: INSULIN ASPAR SC SCH (08:00)
[2016-12-13] MEDS ORDERED: Patient's Own Med (Brimonidine Tartrate/Timolol [Combigan 0.2%-0.5% Eye Drops] 1 DROP) BOTHEYES SCH (09:00)
[2016-12-13] MEDS ORDERED: Azithromycin 500 MG in Sodium Chloride 0.9% 250 ML IVPB SCH (09:00)
[2016-12-13] MEDS: Brimonidine 0.2% 50 DROP/5 ML BOTTLE OU SCH ×3 (09:32→16:37)
[2016-12-13] MEDS: Insulin Lispro Mix 75/25 100 units/ml (HumaLog) 10ml SC SCH ×2 (09:44→16:38)
[2016-12-13] MEDS: Enoxaparin 40 mg Syringe SC SCH (09:45)
[2016-12-13] MEDS: guaiFENesin DM 200 mg-20 mg/10 ml UD PO SCH ×3 (09:47→16:39)
[2016-12-13] MEDS: PrednisoLONE 1% OPTH SUSP OU SCH ×4 (09:47→22:14)
--- NOTE | 2016-12-13 10:33 | CP.PCM.DIS ---
<EladioSoniya - Last Filed: 12/13/16 10:33> Provider - Provider Date of Admission: 12/12/16 18:56 Attending physician: Morris Mcginnis MD Time Spent in preparation of Discharge (in minutes): 45 Hospital Course - Lab Results Lab Results: Most Recent Lab Values WBC 10.9 K/uL (4.8-10.8) H 12/13/16 06:30 RBC 3.70 Mil/uL (3.80-5.20) L 12/13/16 06:30 Hgb 11.1 g/dL (12.0-16.0) L 12/13/16 06:30 Hct 33.3 % (34.0-47.0) L 12/13/16 06:30 MCV 90.1 fl (81.0-99.0) 12/13/16 06:30 MCH 29.9 pg (27.0-31.0) 12/13/16 06:30 MCHC 33.2 g/dL (33.0-37.0) 12/13/16 06:30 RDW 13.6 % (11.5-14.5) 12/13/16 06:30 Plt Count 331 K/uL (130-400) 12/13/16 06:30 MPV 9.6 fl (7.2-11.7) 12/13/16 06:30 Neut % (Auto) 65.9 % (50.0-75.0) 12/13/16 06:30 Lymph % (Auto) 22.7 % (20.0-40.0) 12/13/16 06:30 [place] % (Auto) 9.7 % (0.0-10.0) 12/13/16 06:30 Eos % (Auto) 1.5 % (0.0-4.0) 12/13/16 06:30 Baso % (Auto) 0.2 % (0.0-2.0) 12/13/16 06:30 Neut # 7.2 K/uL (1.8-7.0) H 12/13/16 06:30 Lymph # 2.5 K/uL (1.0-4.3) 12/13/16 06:30 [place] # 1.1 K/uL (0.0-0.8) H 12/13/16 06:30 Eos # 0.2 K/uL (0.0-0.7) 12/13/16 06:30 Baso # 0.0 K/uL (0.0-0.2) 12/13/16 06:30 PT 11.7 Seconds (9.8-13.1) 12/12/16 16:36 INR 1.0 (0.9-1.2) 12/12/16 16:36 APTT 27.7 Seconds (25.6-37.1) 12/12/16 16:36 pO2 35 mm/Hg (30-55) 12/12/16 16:37 VBG pH 7.41 (7.32-7.43) 12/12/16 16:37 VBG pCO2 47 mmHg (40-60) 12/12/16 16:37 VBG HCO3 27.5 mmol/L 12/12/16 16:37 VBG Total CO2 31.2 mmol/L (22-28) H 12/12/16 16:37 VBG O2 Sat (Calc) 82.7 % (40-65) H 12/12/16 16:37 VBG Base Excess 4.3 mmol/L (0.0-2.0) H 12/12/16 16:37 VBG Potassium 5.3 mmol/L (3.6-5.2) H 12/12/16 16:37 Sodium 129.0 mmol/L (132-148) L 12/12/16 16:37 Chloride 96.0 mmol/L (98-107) L 12/12/16 16:37 Glucose 287 mg/dL (65-105) H 12/12/16 16:37 Lactate 2.8 mmol/L (0.7-2.1) H 12/12/16 16:37 FiO2 21.0 % 12/12/16 16:37 Blood Gas Comments Lactate 2.8 12/12/16 16:37 Crit Value Called To mahendra Parra 12/12/16 16:37 Crit Value Called By 203 12/12/16 16:37 Crit Value Read Back Y 12/12/16 16:37 Blood Gas Notified Time 1643 12/12/16 16:37 Sodium 135 mmol/l (132-148) 12/13/16 06:30 Potassium 3.8 MMOL/L (3.6-5.0) 12/13/16 06:30 Chloride 98 mmol/L (98-107) 12/13/16 06:30 Carbon Dioxide 27 mmol/L (22-30) 12/13/16 06:30 Anion Gap 14 (10-20) 12/13/16 06:30 BUN 16 mg/dl (7-17) 12/13/16 06:30 Creatinine 0.7 mg/dL (0.7-1.2) 12/13/16 06:30 Est GFR ( Amer) > 60 12/13/16 06:30 Est GFR (Non-Af Amer) > 60 12/13/16 06:30 POC Glucose (mg/dL) 132 mg/dL (65-110) H 12/13/16 05:26 Random Glucose 111 mg/dL (65-105) H 12/13/16 06:30 Calcium 9.0 mg/dL (8.4-10.2) 12/13/16 06:30 Total Bilirubin 0.4 mg/dl (0.2-1.3) 12/13/16 06:30 AST 35 U/L (14-36) 12/13/16 06:30 ALT 35 U/L (9-52) 12/13/16 06:30 Alkaline Phosphatase 80 U/L (38-126) 12/13/16 06:30 Troponin I < 0.0120 ng/mL (0.00-0.120) 12/12/16 16:36 NT-Pro-B Natriuret Pep 1150 pg/ml (0-900) H 12/12/16 16:36 Total Protein 7.4 G/DL (6.3-8.2) 12/13/16 06:30 Albumin 3.9 g/dL (3.5-5.0) 12/13/16 06:30 Globulin 3.5 gm/dL (2.2-3.9) 12/13/16 06:30 Albumin/Globulin Ratio 1.1 (1.0-2.1) 12/13/16 06:30 Venous Blood Potassium 5.3 mmol/L (3.6-5.2) H 12/12/16 16:37 Urine Color Yellow (YELLOW) 12/12/16 17:25 Urine Clarity Slighty-cloudy (Clear) 12/12/16 17:25 Urine pH 6.0 (5.0-8.0) 12/12/16 17:25 Ur Specific [place] 1.012 (1.003-1.030) 12/12/16 17:25 Urine Protein 100 mg/dL (NEGATIVE) 12/12/16 17:25 Urine Glucose (UA) >=500 mg/dL (Normal) 12/12/16 17:25 Urine Ketones Negative mg/dL (NEGATIVE) 12/12/16 17:25 Urine Blood Negative (NEGATIVE) 12/12/16 17:25 Urine Nitrate Negative (NEGATIVE) 12/12/16 17:25 Urine Bilirubin Negative (NEGATIVE) 12/12/16 17:25 Urine Urobilinogen 0.2-1.0 mg/dL (0.2-1.0) 12/12/16 17:25 Ur Leukocyte Esterase Large Ajay/uL (Negative) 12/12/16 17:25 Urine RBC (Auto) 7 /hpf (0-3) H 12/12/16 17:25 Urine Microscopic WBC 73 /hpf (0-5) H 12/12/16 17:25 Ur Squamous Epith Cells 1 /hpf (0-5) 12/12/16 17:25 Urine Bacteria Few (<OCC) H 12/12/16 17:25 Discharge Exam - Head Exam Head Exam: ATRAUMATIC, NORMOCEPHALIC Discharge Plan - Discharge Medications Prescriptions: Levofloxacin [Levaquin] 750 mg PO DAILY #7 tablet - Follow Up Plan Condition: FAIR Instructions: Urinary Tract Infection in Women (DC), Urinary Tract Infection in Men (DC), Dysuria (GEN) Additional Instructions: Family was advised to have insulin adjusted to a lower dose <Morris Mcginnis - Last Filed: 12/14/16 13:43> Provider - Provider Date of Admission: 12/12/16 18:56 Attending physician: Morris Mcginnis MD Diagnosis - Discharge Diagnosis (1) Pneumonia Status: Acute (2) Diabetes mellitus type 2 in obese Status: Acute (3) Hyperlipidemia Status: Acute (4) Hypothyroidism Status: Acute (5) Dementia Status: Acute Hospital Course - Lab Results Lab Results: Most Recent Lab Values WBC 10.9 K/uL (4.8-10.8) H 12/13/16 06:30 RBC 3.70 Mil/uL (3.80-5.20) L 12/13/16 06:30 Hgb 11.1 g/dL (12.0-16.0) L 12/13/16 06:30 Hct 33.3 % (34.0-47.0) L 12/13/16 06:30 MCV 90.1 fl (81.0-99.0) 12/13/16 06:30 MCH 29.9 pg (27.0-31.0) 12/13/16 06:30 MCHC 33.2 g/dL (33.0-37.0) 12/13/16 06:30 RDW 13.6 % (11.5-14.5) 12/13/16 06:30 Plt Count 331 K/uL (130-400) 12/13/16 06:30 MPV 9.6 fl (7.2-11.7) 12/13/16 06:30 Neut % (Auto) 65.9 % (50.0-75.0) 12/13/16 06:30 Lymph % (Auto) 22.7 % (20.0-40.0) 12/13/16 06:30 [place] % (Auto) 9.7 % (0.0-10.0) 12/13/16 06:30 Eos % (Auto) 1.5 % (0.0-4.0) 12/13/16 06:30 Baso % (Auto) 0.2 % (0.0-2.0) 12/13/16 06:30 Neut # 7.2 K/uL (1.8-7.0) H 12/13/16 06:30 Lymph # 2.5 K/uL (1.0-4.3) 12/13/16 06:30 [place] # 1.1 K/uL (0.0-0.8) H 12/13/16 06:30 Eos # 0.2 K/uL (0.0-0.7) 12/13/16 06:30 Baso # 0.0 K/uL (0.0-0.2) 12/13/16 06:30 PT 11.7 Seconds (9.8-13.1) 12/12/16 16:36 INR 1.0 (0.9-1.2) 12/12/16 16:36 APTT 27.7 Seconds (25.6-37.1) 12/12/16 16:36 pO2 35 mm/Hg (30-55) 12/12/16 16:37 VBG pH 7.41 (7.32-7.43) 12/12/16 16:37 VBG pCO2 47 mmHg (40-60) 12/12/16 16:37 VBG HCO3 27.5 mmol/L 12/12/16 16:37 VBG Total CO2 31.2 mmol/L (22-28) H 12/12/16 16:37 VBG O2 Sat (Calc) 82.7 % (40-65) H 12/12/16 16:37 VBG Base Excess 4.3 mmol/L (0.0-2.0) H 12/12/16 16:37 VBG Potassium 5.3 mmol/L (3.6-5.2) H 12/12/16 16:37 Sodium 129.0 mmol/L (132-148) L 12/12/16 16:37 Chloride 96.0 mmol/L (98-107) L 12/12/16 16:37 Glucose 287 mg/dL (65-105) H 12/12/16 16:37 Lactate 2.8 mmol/L (0.7-2.1) H 12/12/16 16:37 FiO2 21.0 % 12/12/16 16:37 Blood Gas Comments Lactate 2.8 12/12/16 16:37 Crit Value Called To mahendra Parra 12/12/16 16:37 Crit Value Called By 203 12/12/16 16:37 Crit Value Read Back Y 12/12/16 16:37 Blood Gas Notified Time 1643 12/12/16 16:37 Sodium 135 mmol/l (132-148) 12/13/16 06:30 Potassium 3.8 MMOL/L (3.6-5.0) 12/13/16 06:30 Chloride 98 mmol/L (98-107) 12/13/16 06:30 Carbon Dioxide 27 mmol/L (22-30) 12/13/16 06:30 Anion Gap 14 (10-20) 12/13/16 06:30 BUN 16 mg/dl (7-17) 12/13/16 06:30 Creatinine 0.7 mg/dL (0.7-1.2) 12/13/16 06:30 Est GFR ( Amer) > 60 12/13/16 06:30 Est GFR (Non-Af Amer) > 60 12/13/16 06:30 POC Glucose (mg/dL) 228 mg/dL (65-110) H 12/14/16 10:43 Random Glucose 111 mg/dL (65-105) H 12/13/16 06:30 Calcium 9.0 mg/dL (8.4-10.2) 12/13/16 06:30 Total Bilirubin 0.4 mg/dl (0.2-1.3) 12/13/16 06:30 AST 35 U/L (14-36) 12/13/16 06:30 ALT 35 U/L (9-52) 12/13/16 06:30 Alkaline Phosphatase 80 U/L (38-126) 12/13/16 06:30 Troponin I < 0.0120 ng/mL (0.00-0.120) 12/12/16 16:36 NT-Pro-B Natriuret Pep 1150 pg/ml (0-900) H 12/12/16 16:36 Total Protein 7.4 G/DL (6.3-8.2) 12/13/16 06:30 Albumin 3.9 g/dL (3.5-5.0) 12/13/16 06:30 Globulin 3.5 gm/dL (2.2-3.9) 12/13/16 06:30 Albumin/Globulin Ratio 1.1 (1.0-2.1) 12/13/16 06:30 Venous Blood Potassium 5.3 mmol/L (3.6-5.2) H 12/12/16 16:37 Urine Color Yellow (YELLOW) 12/12/16 17:25 Urine Clarity Slighty-cloudy (Clear) 12/12/16 17:25 Urine pH 6.0 (5.0-8.0) 12/12/16 17:25 Ur Specific [place] 1.012 (1.003-1.030) 12/12/16 17:25 Urine Protein 100 mg/dL (NEGATIVE) 12/12/16 17:25 Urine Glucose (UA) >=500 mg/dL (Normal) 12/12/16 17:25 Urine Ketones Negative mg/dL (NEGATIVE) 12/12/16 17:25 Urine Blood Negative (NEGATIVE) 12/12/16 17:25 Urine Nitrate Negative (NEGATIVE) 12/12/16 17:25 Urine Bilirubin Negative (NEGATIVE) 12/12/16 17:25 Urine Urobilinogen 0.2-1.0 mg/dL (0.2-1.0) 12/12/16 17:25 Ur Leukocyte Esterase Large Ajay/uL (Negative) 12/12/16 17:25 Urine RBC (Auto) 7 /hpf (0-3) H 12/12/16 17:25 Urine Microscopic WBC 73 /hpf (0-5) H 12/12/16 17:25 Ur Squamous Epith Cells 1 /hpf (0-5) 12/12/16 17:25 Urine Bacteria Few (<OCC) H 12/12/16 17:25
[2016-12-13] MEDS: levoFLOXacin 750 MG TAB PO SCH (13:15)
[2016-12-13] MEDS ORDERED: Dextrose 50% SYRINGE Inj (50 ml) ONE (13:58)
[2016-12-13] MEDS ORDERED: Dextrose 50% SYRINGE Inj (50 ml) IVP ONE (14:07)
[2016-12-13] MEDS: Potassium Ch 20mEq in D5-1/2NS 1,000 ML IV SCH (17:15)
--- NOTE | 2016-12-13 18:19 | CARD ---
APPROVED REPORT EKG Measurement Heart [id number] <Conclusion> Normal sinus rhythm Possible Left atrial enlargement Prolonged QT Abnormal ECG
[2016-12-13] MEDS ORDERED: Latanoprost 0.005% Opht SOUTION OU SCH (22:00)
[2016-12-14] MEDS: MOXIFLOXACIN HCL EACHEYE SCH ×5 (01:57→15:21)
[2016-12-14] MEDS: guaiFENesin DM 200 mg-20 mg/10 ml UD PO SCH ×4 (02:18→18:00)
[2016-12-14] MEDS: Potassium Ch 20mEq in D5-1/2NS 1,000 ML IV SCH ×2 (03:21→14:00)
[2016-12-14] MEDS: Levothyroxine 75 MCG TAB PO SCH (06:28)
[2016-12-14] MEDS: Albuterol-Ipratrop 3 mg / 0.5 (3 ml) UD INH SCH ×2 (07:18→13:13)
[2016-12-14] MEDS: Enoxaparin 40 mg Syringe SC SCH (09:15)
[2016-12-14] MEDS: PrednisoLONE 1% OPTH SUSP OU SCH ×3 (09:16→18:00)
[2016-12-14] MEDS: Brimonidine 0.2% 50 DROP/5 ML BOTTLE OU SCH ×3 (09:17→17:59)
[2016-12-14] MEDS: levoFLOXacin 750 MG TAB PO SCH (09:17)
[2016-12-14] MEDS: Insulin Lispro Mix 75/25 100 units/ml (HumaLog) 10ml SC SCH ×2 (09:21→17:59)
[2016-12-14] MEDS: Patient's Own Med (Cyclosporine [Restasis] 1 DROP) EACHEYE SCH (12:05)
[2016-12-14 12:47] VITALS: BP 152/67; PULSE 69; TEMP 98.3
--- NOTE | 2016-12-14 13:33 | CP.PCM.HP ---
History of Present Illness - History of Present Illness History of Present Illness: This is an 81 y/o female admitted from last night for worsening of cough She was brought by daughter for increasing cough but no fever. At the ER noted to have possible infiltrate hence admitted for pneumonia. Has a hx of HTN DM 2 blindness dementia hypothyroidism and renal insufficiency. Present on Admission - Present on Admission Any Indicators Present on Admission: Yes History of DVT/PE: No History of Uncontrolled Diabetes: Yes Urinary Catheter: No Decubitus Ulcer Present: No - Notes: Notes:: on insulin Review of Systems - Cardiovascular Cardiovascular: Orthopnea - Respiratory Respiratory: Cough Past Patient History - Infectious Disease Hx of Infectious Diseases: None - Tetanus Immunizations Tetanus Immunization: Unknown - Past Medical History & Family History Past Medical History?: Yes - Past Social History Smoking Status: Never Smoked - CARDIAC Hx Cardiac Disorders: Yes Hx Hypercholesterolemia: Yes Hx Hypertension: Yes - PULMONARY Hx Respiratory Disorders: No - NEUROLOGICAL Hx Neurological Disorder: Yes Hx Alzheimer's Disease: Yes HX Cerebrovascular Accident: Yes Hx Dementia: Yes Hx Migraine: Yes Hx Transient Ischemic Attacks (TIA): Yes - HEENT Hx HEENT Problems: Yes Hx Glaucoma: Yes - RENAL Hx Chronic Kidney Disease: No - ENDOCRINE/METABOLIC Hx Endocrine Disorders: Yes Hx Diabetes Mellitus Type 2: Yes - HEMATOLOGICAL/ONCOLOGICAL Hx Blood Disorders: No - INTEGUMENTARY Hx Dermatological Problems: No - MUSCULOSKELETAL/RHEUMATOLOGICAL Hx Musculoskeletal Disorders: Yes Hx Arthritis: Yes Hx Falls: No Hx Fractures: Yes (right wrist and elbow) - GASTROINTESTINAL Hx Gastrointestinal Disorders: Yes Hx Diverticulitis: Yes (Diverticulosis) Hx Gastritis: Yes - GENITOURINARY/GYNECOLOGICAL Hx Genitourinary Disorders: No - PSYCHIATRIC Hx Psychophysiologic Disorder: Yes Hx Anxiety: Yes Hx Depression: Yes Hx Substance Use: No - SURGICAL HISTORY Hx Surgeries: Yes Hx Coronary Artery Bypass Graft: No Hx Thyroidectomy: Yes Hx Tonsillectomy: Yes - ANESTHESIA Hx Anesthesia: Yes Hx Anesthesia Reactions: Yes (HALLUCINATION, CONFUSION) Hx Malignant Hyperthermia: No Has any member of the family had a problem w/ anesthesia?: No Meds Home Medications: Home Medication List Medication Instructions Recorded Confirmed Type Levofloxacin [Levaquin] 750 mg PO DAILY #7 tablet 12/13/16 Rx Allergies/Adverse Reactions: Allergies Allergy/AdvReac Type Severity Reaction Status Date / Time aspirin Allergy NAUSEA Verified 12/12/16 15:41 Sulfa (Sulfonamide Allergy RASH Verified 12/12/16 15:41 Antibiotics) metformin AdvReac DIARRHEA Verified 12/12/16 15:41 Physical Exam - Head Exam Head Exam: NORMAL INSPECTION - Eye Exam Eye Exam: Normal appearance - Respiratory Exam Respiratory Exam: Decreased Breath Sounds - Cardiovascular Exam Cardiovascular Exam: REGULAR RHYTHM - GI/Abdominal Exam GI & Abdominal Exam: Normal Bowel Sounds Results - Vital Signs Recent Vital Signs: Last Vital Signs Temp 98.3 F 12/14/16 12:00 Pulse 69 12/14/16 12:00 Resp 78 H 12/14/16 12:00 BP 152/67 H 12/14/16 12:00 Pulse Ox 94 L 12/14/16 12:00 - Labs Result Diagrams: 12/13/16 06:30 12/13/16 06:30 Labs: Laboratory Results - last 24 hr 12/13/16 12/13/16 12/13/16 13:43 14:29 16:12 POC Glucose (mg/dL) 45 L 190 H 119 H 12/13/16 12/14/16 12/14/16 21:21 05:46 10:43 POC Glucose (mg/dL) 90 122 H 228 H Assessment & Plan (1) Pneumonia Status: Acute (2) Diabetes mellitus type 2 in obese Status: Acute (3) Hyperlipidemia Status: Acute (4) Hypothyroidism Status: Acute (5) Dementia Status: Acute - Assessment and Plan (Free Text) Plan: Cont meds IV antibiotics started oxygen neb tx
[2016-12-14 15:50] VITALS: RESP 18
[2016-12-30 12:21] VITALS: O2SAT 93
== END 2016-12-14 18:28 | disposition home or self-care (01) ==
LOC: H.ER 15:32 → H.ERHOLD 18:56 → INTOOBSV 18:56 → H.TEL 22:59
PROVIDERS: ADMIT Family Medicine; ATTEND Family Medicine
DX: J18.9 Pneumonia, unspecified organism (principal); E03.9 Hypothyroidism, unspecified; E11.9 Type 2 diabetes mellitus without complications; E66.9 Obesity, unspecified; E78.00 Pure hypercholesterolemia, unspecified; F02.80 Dementia in other diseases classified elsewhere, unspecified severity, without behavioral disturbance, psychotic disturbance, mood disturbance, and anxiety; G30.9 Alzheimer's disease, unspecified; Z86.73 Personal history of transient ischemic attack (TIA), and cerebral infarction without residual deficits; F32.9 Major depressive disorder, single episode, unspecified; F41.9 Anxiety disorder, unspecified; G43.909 Migraine, unspecified, not intractable, without status migrainosus; K29.70 Gastritis, unspecified, without bleeding; E78.5 Hyperlipidemia, unspecified; I10 Essential (primary) hypertension; Z79.02 Long term (current) use of antithrombotics/antiplatelets
CPT/HCPCS: 36415; 71010; 80053; 81003; 82803; 82948; 83880; 84484; 85025; 85610; 85730; 87040; 93005; 94640; 96365; 96366; 96368; 96372; 96375; 99285; G0378; J0456; J0696; J1650; J2405

== ENCOUNTER 2017-05-07 06:19 | Inpatient (IN) | payer MEDICARE ==
[2017-05-07 06:20] VITALS: BMI 30.9
[2017-05-07] MEDS ORDERED: Sodium Chloride 0.9% 1,000 ML IV STA (07:39)
--- NOTE | 2017-05-07 07:40 | ED PDOC ---
HPI: Trauma/Fall - HPI Time Seen by Provider: 05/07/17 07:13 Chief Complaint (Nursing): Lower Extremity Problem/Injury Chief Complaint (Provider): Knee pain s/p fall History Per: Family History/Exam Limitations: no limitations Onset/Duration Of Symptoms: Hrs Injury Occurred (Timing): Just Before Arrival Associated Symptoms: denies: LOC Additional Complaint(s): 81yo female with past medical history of dementia, diabetes, legal blindness, is brought by her daughter to the ED for evaluation after the patient fell out of her bed this morning. Daughter states she saw the fall and reports patient did not hit her head or lose consciousness. Of note, daughter also states the patient has been hallucinating for the past 3 days, reports seeing "cars on the wall". Daughter also states the patient has had urinary frequency and over the past couple days, she has decreased her water intake. She denies any fever, chills. Of note, patient did not receive a flu shot this year. daughter offers no other medical complaints. 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), Dementia, Depression, Diabetes, Diverticulitis ( Diverticulosis), Fractures (Right wrist and elbow), Gastritis, HTN, Hypercholesterolemia, Hyperlipidemia, Hypothyroidism, Migraine, Pneumonia, TIA ( 2013) Denies: Arthritis, HIV, Chronic Kidney Disease - Surgical History Surgical History: Tonsillectomy (partial thyroidectomy) Denies: CABG - Family History Family History: States: No Known Family Hx, Unknown Family Hx - Living Arrangements Living Arrangements: With Family - Home Medications Home Medications: Ambulatory Orders Medication Instructions Recorded Acetaminophen/Butalbital/Caf 1 tab PO Q8H PRN 08/23/15 [Fioricet] Atorvastatin [Lipitor] 40 mg PO HS 08/23/15 Brimonidine Tartrate/Timolol 1 drop BOTHEYES BID 08/23/15 [Combigan 0.2%-0.5% Eye Drops] Cholecalciferol [Vitamin D 1000 IU] 1,000 units PO HS 08/23/15 Clopidogrel [Plavix] 75 mg PO DAILY 08/23/15 Donepezil [Aricept] 10 mg PO HS 08/23/15 Insulin Aspart Prot/Insuln Asp 10 units SC DIN 08/23/15 [Novolog Mix 70-30 Vial] Latanoprost 0.005% Opht [Xalatan 1 drop EACHEYE HS 08/23/15 Opht] Levothyroxine [Synthroid] 75 mcg PO DAILY 08/23/15 Meclizine HCl [Antivert] 25 mg PO TID PRN 08/23/15 Memantine [Namenda] 10 mg PO BID 08/23/15 Prednisolone Acetate [Pred Forte] 1 drop BOTHEYES QID 08/23/15 Ramipril 5 mg PO DAILY 08/23/15 Ranitidine HCl [Zantac] 150 mg PO BID 08/23/15 Sertraline [Zoloft] 50 mg PO HS 08/23/15 Docusate [Colace] 200 mg PO HS 10/02/16 Insulin Aspart/Insulin Aspar 50 unit SC BRK 10/02/16 [Novolog Mix 70/30 (70/30 units/ml)] Metoprolol Tartrate [Lopressor] 12.5 mg PO DAILY PRN 10/02/16 Moxifloxacin HCl [Vigamox] 1 drop EACHEYE Q1H 10/02/16 cycloSPORINE [Restasis] 1 drop EACHEYE Q12H 10/02/16 Levofloxacin [Levaquin] 750 mg PO DAILY #7 tablet 12/13/16 - Allergies Allergies/Adverse Reactions: Allergies Allergy/AdvReac Type Severity Reaction Status Date / Time aspirin Allergy NAUSEA Verified 12/12/16 15:41 Sulfa (Sulfonamide Allergy RASH Verified 12/12/16 15:41 Antibiotics) metformin AdvReac DIARRHEA Verified 12/12/16 15:41 Review of Systems ROS Statement: Except As Marked, All Systems Reviewed And Found Negative Constitutional: Negative for: Fever, Chills Genitourinary Female: Positive for: Frequency Musculoskeletal: Positive for: Back Pain (lower back pain), Leg Pain (bilateral knee pain) Physical Exam - Reviewed Nursing Documentation Reviewed: Yes Vital Signs Reviewed: Yes - Physical Exam Appears: Positive for: Non-toxic, No Acute Distress Head Exam: Positive for: ATRAUMATIC, NORMAL INSPECTION, NORMOCEPHALIC Skin: Positive for: Normal Color Eye Exam: Positive for: Other (patient with history of legal blindness) Neck: Positive for: Painless ROM, Supple Cardiovascular/Chest: Positive for: Regular Rate, Rhythm. Negative for: Murmur Respiratory: Positive for: Normal Breath Sounds (good air entery), Rales ( scattered rales right lung base) Gastrointestinal/Abdominal: Positive for: Normal Exam, Soft. Negative for: Tenderness Back: Positive for: Normal Inspection Extremity: Positive for: Normal ROM, Other (discomfort noted upon pelvic rocking ). Negative for: Deformity, Swelling Neurologic/Psych: Positive for: Alert, Oriented - Laboratory Results Result Diagrams: 05/07/17 08:45 05/07/17 08:45 - ECG O2 Sat by Pulse Oximetry: 97 (RA) Pulse Ox Interpretation: Normal Medical Decision Making Medical Decision Making: Time: 0725 Impression: Fall type injury rule out fractures Rule out UTI vs. dehydration vs. organic process causing delirium Plan: -- Labs -- CT Head -- Chest x-ray -- IV Fluids -- XR Pelvis -- Rapid Flu -- Urinalysis Reassess Time: 0825 UDip: trace blood noted + Glucose + Nitrites - Leukocytes Time: 0844 CT Head FINDINGS: HEMORRHAGE: No intracranial hemorrhage. BRAIN: Diffuse atrophy with prominence of the ventricles and sulci noted. No mass effect or edema. Dense intracranial atherosclerosis. Bilateral basal ganglia lacunar infarcts. Scattered periventricular and subcortical white matter hypodensities, which are nonspecific, but often seen with chronic microvascular ischemic disease. Please note that MRI with diffusion imaging is more sensitive in the detection of acute ischemic event. VENTRICLES: No hydrocephalus. CALVARIUM: Unremarkable. PARANASAL SINUSES: Unremarkable as visualized. No significant inflammatory changes. MASTOID AIR CELLS: Unremarkable as visualized. No inflammatory changes. OTHER FINDINGS: None. IMPRESSION: Generalized atrophy. Nonspecific white matter changes. Scribe Attestation: Documented by Alley Johnson acting as a scribe for Joelle Santana MD. Provider Attestation: All medical record entries made by the Scribe were at my direction and personally dictated by me. I have reviewed the chart and agree that the record accurately reflects my personal performance of the history, physical exam, medical decision making, and the department course for this patient. I have also personally directed, reviewed, and agree with the discharge instructions and disposition. 9.15a - patient with evidence of UTI. Will admit because of this and because of reports of delusions/hallucinations. Case d/w Dr. Mcginnis who covers Dr. Kirsten Schroeder for his inpatients. Disposition - Clinical Impression Clinical Impression: UTI (urinary tract infection), Delusion - Patient ED Disposition Is Patient to be Admitted: Yes Doctor Will See Patient In The: Hospital - Disposition Disposition: Transfer of Care Disposition Time: 09:40 Condition: STABLE Forms: [employer] ([place]) - Pt Status Changed To: Hospital Disposition Of: Observation - POA Present On Arrival: None
[2017-05-07 08:24] LABS: RBC URINE 1 /hpf (0-3); URINE BACTERIA OCC (<OCC); URINE BILIRUBIN NEGATIVE (NEGATIVE); URINE BLOOD NEGATIVE (NEGATIVE); URINE COLOR YELLOW (YELLOW); URINE GLUCOSE (UA) >=500 mg/dL (Normal); URINE KETONE NEGATIVE (NEGATIVE); URINE LEUKOCYTE ESTERASE MOD Leu/uL (Negative); URINE PROTEIN 100 mg/dL (NEGATIVE); URINE UROBILINOGEN 0.2-1.0 mg/dL (0.2-1.0); WBC URINE 32 /hpf (0-5)
--- NOTE | 2017-05-07 08:46 | CT ---
PROCEDURE: CT HEAD WITHOUT CONTRAST. HISTORY: fall with h/o delusions/hallucinations COMPARISON: Noncontrast head CT performed 07/18/16 TECHNIQUE: Axial computed tomography images were obtained through the head/brain without intravenous contrast. Radiation dose: Total exam DLP = 1969.88 mGy-cm. This CT exam was performed using one or more of the following dose reduction techniques: Automated exposure control, adjustment of the mA and/or kV according to patient size, and/or use of iterative reconstruction technique. FINDINGS: HEMORRHAGE: No intracranial hemorrhage. BRAIN: Diffuse atrophy with prominence of the ventricles and sulci noted. No mass effect or edema. Dense intracranial atherosclerosis. Bilateral basal ganglia lacunar infarcts. Scattered periventricular and subcortical white matter hypodensities, which are nonspecific, but often seen with chronic microvascular ischemic disease. Please note that MRI with diffusion imaging is more sensitive in the detection of acute ischemic event. VENTRICLES: No hydrocephalus. CALVARIUM: Unremarkable. PARANASAL SINUSES: Unremarkable as visualized. No significant inflammatory changes. MASTOID AIR CELLS: Unremarkable as visualized. No inflammatory changes. OTHER FINDINGS: None. IMPRESSION: Generalized atrophy. Nonspecific white matter changes.
[2017-05-07 09:00] LABS: BASO # 0.1 K/uL (0.0-0.2); BASO % 1.1 % (0.0-2.0); EOS % 0.2 % (0.0-4.0); HEMATOCRIT 35.9 % (34.0-47.0); LYMPH # 2.2 K/uL (1.0-4.3); LYMPH % 19.8 % (20.0-40.0); MEAN CELL VOLUME 90.6 fl (81.0-99.0); MEAN CORPUSCULAR HEMOGLOBIN 29.6 pg (27.0-31.0); MEAN CORPUSCULAR HGB CONC 32.6 g/dL (33.0-37.0); MEAN PLATELET VOLUME 9.8 fl (7.2-11.7); MONO # 0.6 K/uL (0.0-0.8); MONO % 5.5 % (0.0-10.0); NEUT # 8.1 K/uL (1.8-7.0); NEUT % 73.4 % (50.0-75.0); RED CELL DISTRIBUTION WIDTH 13.7 % (11.5-14.5)
[2017-05-07 09:02] LABS: VENOUS BLOOD GAS BASE EXCESS 0.2 mmol/L (0.0-2.0); VENOUS BLOOD GAS PCO2 51 mmHg (40-60); VENOUS BLOOD PH 7.33 (7.32-7.43)
[2017-05-07 09:14] LABS: ALB/GLOB RATIO 1.3 (1.0-2.1); ALKALINE PHOSPHATASE 82 U/L (38-126); ALT/SGPT 49 U/L (9-52); AST/SGOT 33 U/L (14-36); BILIRUBIN,TOTAL 0.3 mg/dl (0.2-1.3); BLOOD UREA NITROGEN 36 mg/dl (7-17); CALCIUM 9.4 mg/dL (8.4-10.2); CARBON DIOXIDE 23 mmol/L (22-30); CHLORIDE 104 mmol/L (98-107); GFR AFRICAN-AMERICAN > 60; GLUCOSE,RANDOM 176 mg/dL (65-105); POTASSIUM 4.5 MMOL/L (3.6-5.0); SODIUM 141 mmol/l (132-148)
[2017-05-07] MEDS ORDERED: cefTRIAXone IV 1 gm in Dextros 50 ML IVPB STA (09:32)
[2017-05-07] MEDS ORDERED: cefTRIAXone IV 1 gm in Dextros 50 ML IVPB ONE (09:44)
--- NOTE | 2017-05-07 11:13 | CP.PCM.HP ---
History of Present Illness - History of Present Illness History of Present Illness: Patient seen and examined with Dr. Mcginnis. 81yo female with past medical history of dementia, diabetes, legal blindness, is brought by her daughter to the ED for evaluation with complaints of 2 day history of auditory and visual hallucinations, and fall. Daughter witnessed the fall. Patient fell on her knees, no pain now. No LOC or head trauma. Daughter also states the patient has had urinary frequency and over the past couple days , she has decreased PO fluid intake. She has not had any fevers, chills, nausea , vomiting, abdominal pain, dysuria. 12 point review of systems otherwise negative. 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 Mediations: reviewed and reconciled allergies: reviewed Present on Admission - Present on Admission Any Indicators Present on Admission: Yes History of DVT/PE: No History of Uncontrolled Diabetes: Yes Past Patient History - Infectious Disease Hx of Infectious Diseases: None - Tetanus Immunizations Tetanus Immunization: Unknown - Past Medical History & Family History Past Medical History?: Yes - Past Social History Smoking Status: Never Smoked - CARDIAC Hx Congestive Heart Failure: Yes Hx Hypercholesterolemia: Yes Hx Hypertension: Yes - PULMONARY Hx Pneumonia: Yes - NEUROLOGICAL Hx Alzheimer's Disease: Yes Hx Dementia: Yes Hx Migraine: Yes Hx Transient Ischemic Attacks (TIA): Yes (2013) - HEENT Hx HEENT Problems: Yes Hx Cataracts: Yes (s/p surgery) Hx Glaucoma: Yes Hx Macular Degeneration: Yes Other/Comment: Hx legally blind. Hx Diabetic Retinopathy - RENAL Hx Chronic Kidney Disease: No - ENDOCRINE/METABOLIC Hx Hypothyroidism: Yes - HEMATOLOGICAL/ONCOLOGICAL Hx Anemia: Yes Hx Human Immunodeficiency Virus (HIV): No - INTEGUMENTARY Hx Dermatological Problems: No - MUSCULOSKELETAL/RHEUMATOLOGICAL Hx Arthritis: No Hx Fractures: Yes (Right wrist and elbow) - GASTROINTESTINAL Hx Diverticulitis: Yes (Diverticulosis) Hx Gastritis: Yes - GENITOURINARY/GYNECOLOGICAL Hx Urinary Tract Infection: Yes - PSYCHIATRIC Hx Anxiety: Yes Hx Depression: Yes - SURGICAL HISTORY Hx Coronary Artery Bypass Graft: No Hx Tonsillectomy: Yes (partial thyroidectomy) - ANESTHESIA Hx Anesthesia: Yes Hx Anesthesia Reactions: Yes (HALLUCINATION, CONFUSION) Hx Malignant Hyperthermia: No Meds Allergies/Adverse Reactions: Allergies Allergy/AdvReac Type Severity Reaction Status Date / Time aspirin Allergy NAUSEA Verified 12/12/16 15:41 Sulfa (Sulfonamide Allergy RASH Verified 12/12/16 15:41 Antibiotics) metformin AdvReac DIARRHEA Verified 12/12/16 15:41 Physical Exam - Constitutional Appears: No Acute Distress - Head Exam Head Exam: NORMAL INSPECTION, NORMOCEPHALIC - Eye Exam Additional comments: b/l cataracts - ENT Exam ENT Exam: Mucous Membranes Moist - Respiratory Exam Respiratory Exam: Clear to Auscultation Bilateral, NORMAL BREATHING PATTERN - Cardiovascular Exam Cardiovascular Exam: REGULAR RHYTHM, +S1, +S2 - GI/Abdominal Exam GI & Abdominal Exam: Normal Bowel Sounds, Soft. absent: Diminished Bowel Sounds , Distended, Guarding, Rebound, Rigid, Tenderness - Extremities Exam Extremities exam: Positive for: normal inspection. Negative for: pedal edema Additional comments: no eccymosis of knees, no swelling - Neurological Exam Neurological exam: Alert Additional comments: blind - Psychiatric Exam Psychiatric exam: Normal Affect, Normal Mood - Skin Skin Exam: Dry, Intact Results - Vital Signs Recent Vital Signs: Last Vital Signs Temp 97.3 F L 05/07/17 06:27 Pulse 73 05/07/17 06:27 Resp 18 05/07/17 06:27 BP 156/70 H 05/07/17 06:27 Pulse Ox 97 05/07/17 09:40 - Labs Result Diagrams: 05/07/17 08:45 05/07/17 08:45 Labs: Laboratory Results - last 24 hr 05/07/17 05/07/17 05/07/17 08:02 08:45 08:45 WBC 11.0 H RBC 3.97 Hgb 11.7 L Hct 35.9 MCV 90.6 MCH 29.6 MCHC 32.6 L RDW 13.7 Plt Count 321 MPV 9.8 Neut % (Auto) 73.4 Lymph % (Auto) 19.8 L [place] % (Auto) 5.5 Eos % (Auto) 0.2 Baso % (Auto) 1.1 Neut # 8.1 H Lymph # 2.2 [place] # 0.6 Eos # 0.0 Baso # 0.1 pO2 VBG pH VBG pCO2 VBG HCO3 VBG Total CO2 VBG O2 Sat (Calc) VBG Base Excess VBG Potassium Glucose Lactate FiO2 Blood Gas Comments Crit Value Called To Crit Value Called By Crit Value Read Back Blood Gas Notified Time Sodium 141 Potassium 4.5 Chloride 104 Carbon Dioxide 23 Anion Gap 19 BUN 36 H Creatinine 0.9 Est GFR ( Amer) > 60 Est GFR (Non-Af Amer) 60 Random Glucose 176 H Calcium 9.4 Total Bilirubin 0.3 AST 33 ALT 49 Alkaline Phosphatase 82 Total Protein 8.0 Albumin 4.5 Globulin 3.5 Albumin/Globulin Ratio 1.3 Venous Blood Potassium Urine Color Yellow Urine Clarity Slighty-cloudy Urine pH 5.0 Ur Specific [place] 1.018 Urine Protein 100 Urine Glucose (UA) >=500 Urine Ketones Negative Urine Blood Negative Urine Nitrate Negative Urine Bilirubin Negative Urine Urobilinogen 0.2-1.0 Ur Leukocyte Esterase Mod Urine RBC (Auto) 1 Urine Microscopic WBC 32 H Ur Squamous Epith Cells < 1 Urine Bacteria Occ H Hyaline Casts 0-2 Salicylates Influenza Typ A,B (EIA) 05/07/17 05/07/17 05/07/17 08:45 08:45 08:55 WBC RBC Hgb Hct MCV MCH MCHC RDW Plt Count MPV Neut % (Auto) Lymph % (Auto) [place] % (Auto) Eos % (Auto) Baso % (Auto) Neut # Lymph # [place] # Eos # Baso # pO2 26 L VBG pH 7.33 VBG pCO2 51 VBG HCO3 23.6 VBG Total CO2 28.5 H VBG O2 Sat (Calc) 55.1 VBG Base Excess 0.2 VBG Potassium 4.9 Glucose 184 H Lactate 2.1 FiO2 21.0 Blood Gas Comments Lactate 2.1 Crit Value Called To tara Greer Crit Value Called By 203 Crit Value Read Back Y Blood Gas Notified Time 901 Sodium 138.0 Potassium Chloride 106.0 Carbon Dioxide Anion Gap BUN Creatinine Est GFR ( Amer) Est GFR (Non-Af Amer) Random Glucose Calcium Total Bilirubin AST ALT Alkaline Phosphatase Total Protein Albumin Globulin Albumin/Globulin Ratio Venous Blood Potassium 4.9 Urine Color Urine Clarity Urine pH Ur Specific [place] Urine Protein Urine Glucose (UA) Urine Ketones Urine Blood Urine Nitrate Urine Bilirubin Urine Urobilinogen Ur Leukocyte Esterase Urine RBC (Auto) Urine Microscopic WBC Ur Squamous Epith Cells Urine Bacteria Hyaline Casts Salicylates < 1.0 Influenza Typ A,B (EIA) Negative for flu a/b Assessment & Plan (1) Urinary tract infection Assessment and Plan: 81 year old female presented s/p fall, with hx of urinary frequency and auditory /visual hallucinations. Patient islikely suffering from delierium, appears to have improved after IV hydration given in ED. She has mild leukocytosis, with + leukocyte esterase, +glucose, 32 WBC in the urine. Afebrile. Will continue IV hydration with LR Continue Rocephin urine culture was done blood cultures done Status: Acute (2) Delusion Assessment and Plan: likely 2' to infection / dehydration Status: Acute (3) Insulin dependent type 2 diabetes mellitus Assessment and Plan: uncontrolled. last Hga1c: 11 in 2016 -resume home medications -accucheck Status: Chronic (4) DVT prophylaxis Assessment and Plan: lovenox Status: Acute (5) Dementia Assessment and Plan: resume home medications Status: Chronic (6) Hypertension Assessment and Plan: home medications resumed, monitor Status: Chronic (7) Hypothyroidism (acquired) Assessment and Plan: synthroid resumed Status: Chronic (8) Fall Assessment and Plan: xr neg for fracture pt eval tomorrow Status: Acute
--- NOTE | 2017-05-07 11:41 | CARD ---
APPROVED REPORT EKG Measurement Heart [id number] <Conclusion> Normal sinus rhythm Abnormal QRS-T angle, consider primary T wave abnormality Prolonged QT Abnormal ECG
[2017-05-07] MEDS: Lactated Ringer's 1,000 ML IV SCH ×2 (11:45→21:30)
--- NOTE | 2017-05-07 13:38 | RAD ---
PROCEDURE: CHEST RADIOGRAPH, 1 VIEW HISTORY: fall with h/o delusions/hallucinations COMPARISON: 12/12/2016 FINDINGS: LUNGS: Clear. PLEURA: No pneumothorax or pleural fluid seen. CARDIOVASCULAR: Mild cardiomegaly. Mild vascular congestion. Aortic tortuosity OSSEOUS STRUCTURES: No significant abnormalities. VISUALIZED UPPER ABDOMEN: Normal. OTHER FINDINGS: None. IMPRESSION: Cardiomegaly with mild vascular congestion
--- NOTE | 2017-05-07 14:19 | RAD ---
PROCEDURE: Radiographs of the pelvis. HISTORY: fall with hip pain COMPARISON: None. FINDINGS: BONES: Pelvic Bones: Unremarkable. Hips: Grossly unremarkable. JOINTS: Sacroiliac Joints: Unremarkable. Pubic Symphysis: Unremarkable. OTHER FINDINGS: There is a moderate amount of stool in the rectum IMPRESSION: Unremarkable radiographs of the pelvis.
[2017-05-07] MEDS ORDERED: Apap-Butalbital-Caffeine 325-50-40mg Tab PO PRN (15:52)
[2017-05-07] MEDS ORDERED: Artificial Tears Opht Soln OU SCH (16:00)
[2017-05-07] MEDS ORDERED: Ciprofloxacin 0.3% OPTH SOLN OU SCH (16:00)
[2017-05-07] MEDS ORDERED: Patient's Own Med (Brimonidine Tartrate/Timolol [Combigan 0.2%-0.5% Eye Drops] 1 DROP) BOTHEYES SCH (17:00)
[2017-05-07] MEDS: Insulin Lispro Mix 75/25 100 units/ml (HumaLog) 10ml SC SCH (17:28)
[2017-05-07] MEDS: Artificial Tears Opht Soln OU SCH (21:22)
[2017-05-07] MEDS: Ciprofloxacin 0.3% OPTH SOLN OU SCH ×2 (21:50→23:52)
[2017-05-07] MEDS: PrednisoLONE 1% OPTH SUSP OU SCH (22:08)
[2017-05-07] MEDS: Latanoprost 0.005% Opht SOUTION OU SCH (22:17)
[2017-05-08] MEDS: Ciprofloxacin 0.3% OPTH SOLN OU SCH ×7 (02:00→21:24)
[2017-05-08] MEDS: Lactated Ringer's 1,000 ML IV SCH (03:05)
[2017-05-08 07:38] LABS: BLOOD UREA NITROGEN 26 mg/dl (7-17); CALCIUM 8.6 mg/dL (8.4-10.2); CARBON DIOXIDE 24 mmol/L (22-30); CHLORIDE 106 mmol/L (98-107); GFR AFRICAN-AMERICAN > 60; GLUCOSE,RANDOM 158 mg/dL (65-105); POTASSIUM 4.3 MMOL/L (3.6-5.0); SODIUM 138 mmol/l (132-148)
[2017-05-08 07:47] LABS: HEMATOCRIT 33.4 % (34.0-47.0); MEAN CORPUSCULAR HEMOGLOBIN 29.8 pg (27.0-31.0); MEAN CORPUSCULAR HGB CONC 33.2 g/dL (33.0-37.0); RED CELL DISTRIBUTION WIDTH 13.5 % (11.5-14.5); WHITE BLOOD COUNT 7.2 K/uL (4.8-10.8)
[2017-05-08] MEDS ORDERED: INSULIN ASPAR SC SCH (08:00)
[2017-05-08] MEDS ORDERED: [UNRECOGNIZED DRUG - OTHER] SC SCH (08:00)
[2017-05-08] MEDS ORDERED: INSULIN ASPART SC SCH (08:00)
[2017-05-08] MEDS: Insulin Lispro Mix 75/25 100 units/ml (HumaLog) 10ml SC SCH ×2 (09:47→17:39)
[2017-05-08] MEDS: Brimonidine 0.2% 50 DROP/5 ML BOTTLE OU SCH ×3 (09:49→17:38)
[2017-05-08] MEDS: Artificial Tears Opht Soln OU SCH ×2 (09:51→20:54)
[2017-05-08] MEDS: Enoxaparin 40 mg Syringe SC SCH (09:52)
[2017-05-08] MEDS: PrednisoLONE 1% OPTH SUSP OU SCH ×4 (09:54→21:52)
[2017-05-08] MEDS: Levothyroxine 75 MCG TAB PO SCH (09:55)
[2017-05-08] MEDS: cefTRIAXone IV 1 gm in Dextros 50 ML IVPB SCH (11:41)
[2017-05-08] MEDS ORDERED: Lactated Ringer's 1,000 ML IV SCH (15:41)
--- NOTE | 2017-05-08 15:44 | CP.PCM.PN ---
Subjective - Date & Time of Evaluation Date of Evaluation: 05/08/17 Time of Evaluation: 15:41 - Subjective Subjective: No acute overnight events. Patient did not sleep very much overnight. Reports she is very tired. She has been sleeping most of the day, but is arousable and responds appropriately. Feeling ok. Has mild headache. Family is bedside. Patient has been on IVF. Rate decreased this afternoon. Leukocytosis has resolved and her urine culture +gram negative edgardo Continue with rocephin. Objective - Vital Signs/Intake and Output Vital Signs (last 24 hours): Temp Pulse Resp BP Pulse Ox 98.0 F 65 20 155/73 H 95 05/08/17 08:14 05/08/17 10:03 05/08/17 08:14 05/08/17 10:03 05/08/17 08:14 - Medications Medications: Current Medications Acetaminophen (Tylenol 325mg Tab) 650 mg PO Q6 PRN PRN Reason: Fever >100.4 F Acetaminophen/Butalbital/Caffeine (Fioricet) 1 tab PO Q8H PRN PRN Reason: Migraine headache Last Admin: 05/08/17 07:15 Dose: 1 tab Artificial Tears (Artificial Tears) 1 drop OU Q12H [facility] Last Admin: 05/08/17 09:51 Dose: 1 drop Atorvastatin Calcium (Lipitor) 40 mg PO HS [facility] Last Admin: 05/07/17 21:38 Dose: 40 mg Brimonidine Tartrate (Alphagan 0.2% Opht) 1 drop OU TID [facility] Last Admin: 05/08/17 14:19 Dose: 1 unit Cholecalciferol (Vitamin D) 1,000 iu PO HS [facility] Last Admin: 05/07/17 21:28 Dose: 1,000 iu Ciprofloxacin (Ciloxan 0.3% Ophth Soln) 1 drop OU Q2H [facility] Last Admin: 05/08/17 14:20 Dose: 1 drop Clopidogrel Bisulfate (Plavix) 75 mg PO DAILY [facility] Last Admin: 05/08/17 09:54 Dose: 75 mg Docusate Sodium (Colace) 200 mg PO HS [facility] Last Admin: 05/07/17 21:27 Dose: 200 mg Donepezil HCl (Aricept) 10 mg PO HS [facility] Last Admin: 05/07/17 21:25 Dose: 10 mg Enoxaparin Sodium (Lovenox) 40 mg SC DAILY [facility] PRN Reason: Protocol Last Admin: 05/08/17 09:52 Dose: 40 mg Famotidine (Pepcid) 20 mg PO BID [facility] Last Admin: 05/08/17 09:54 Dose: 20 mg Ceftriaxone Sodium (Rocephin Iv 1 Gm Duplex) 50 mls @ 50 mls/hr IVPB DAILY [facility] PRN Reason: Protocol Last Admin: 05/08/17 11:41 Dose: 50 mls/hr Insulin Lispro Protam/Lispro Human (Humalog Mix 75/25) 10 units SC DIN [facility] Last Admin: 05/07/17 17:28 Dose: Not Given Insulin Lispro Protam/Lispro Human (Humalog Mix 75/25) 50 units SC BRK [facility] Last Admin: 05/08/17 09:47 Dose: 50 units Latanoprost (Xalatan Opht) 1 drop OU HS [facility] Last Admin: 05/07/17 22:17 Dose: 1 drop Levothyroxine Sodium (Synthroid) 75 mcg PO DAILY [facility] Last Admin: 05/08/17 09:55 Dose: 75 mcg Meclizine HCl (Antivert) 25 mg PO TID PRN PRN Reason: Dizziness Memantine (Namenda) 10 mg PO BID [facility] Last Admin: 05/08/17 09:53 Dose: 10 mg Metoprolol Tartrate (Lopressor) 12.5 mg PO DAILY PRN PRN Reason: SBP >139 Last Admin: 05/08/17 10:03 Dose: 12.5 mg Prednisolone Acetate (Pred Forte 1% Opht Susp) 1 drop OU QID [facility] Last Admin: 05/08/17 14:21 Dose: 1 drop Ramipril (Altace) 5 mg PO DAILY [facility] Last Admin: 05/08/17 09:50 Dose: 5 mg Sertraline HCl (Zoloft) 50 mg PO HS [facility] Last Admin: 05/07/17 21:29 Dose: 50 mg - Labs Labs: 05/08/17 06:55 05/08/17 06:55 - Constitutional Appears: Non-toxic (tired) - ENT Exam ENT Exam: Mucous Membranes Moist - Respiratory Exam Respiratory Exam: NORMAL BREATHING PATTERN - Cardiovascular Exam Cardiovascular Exam: REGULAR RHYTHM - GI/Abdominal Exam GI & Abdominal Exam: Soft, Normal Bowel Sounds. absent: Distended, Guarding, Tenderness - Neurological Exam Additional comments: somnolent but responding appropriately. - Skin Skin Exam: Dry, Intact, Normal Color, Warm Assessment and Plan (1) Urinary tract infection Assessment & Plan: 81 year old female presented s/p fall, with hx of urinary frequency and auditory /visual hallucinations. Patient somnolent today, did not sleep well last night. Was in ED overnight. She is on IVF, will continue given she is sleeping during most of the day. avoid dehydration. Rate decreased this afternoon to avoid fluid overload. Continue Rocephin urine culture was done, gram neg edgardo blood cultures done, ngtd Status: Acute (2) Delusion Status: Acute (3) Insulin dependent type 2 diabetes mellitus Assessment & Plan: uncontrolled. last Hga1c: 11 in 2016 -resume home medications -hyperglycemia possibly exacerbated by infection, possible that needs insulin dose adjustment -accucheck Status: Chronic (4) DVT prophylaxis Assessment & Plan: lovenox Status: Acute (5) Dementia Status: Chronic (6) Hypertension Assessment & Plan: home meds resumed, slightly elevated, monitor Status: Chronic (7) Hypothyroidism (acquired) Assessment & Plan: resume home medication Status: Chronic (8) Fall Assessment & Plan: fall precautions in place PT eval OT eval Status: Acute
[2017-05-08] MEDS: Latanoprost 0.005% Opht SOUTION OU SCH (22:05)
--- NOTE | 2017-05-09 07:00 | PQF GENQUE ---
This form is a permanent part of the medical record 05/09/17 Dr. Mcginnis, Documentation in the H&P PMH template CHF ( yes) as well as the ER note. Patient is on Ramipril. Would you please clarify the type of CHF if known. Clarification of your documentation is requested to better reflect the severity of illness and intensity of treatment of your patient. PHYSICIAN'S RESPONSE Based on your medical judgment of the clinical indicators outlined above please clarify the following: [] Practitioner response [] If unable to determine, please check the box, sign and date. Present On Admission (POA) Indicator: [] Present at the time of admission [] Not present at the time of admission [] Clinically Undetermined In responding to this query, please exercise your independent professional judgment. The fact that a question is asked does not imply that any particular answer is desired or expected. Thank you for your clarification on this documentation. If you have any questions please call:extension [phone] * Thank you, Melanie Thomas RN CDMP MTDD
[2017-05-09 07:05] LABS: MEAN CELL VOLUME 89.3 fl (81.0-99.0); MEAN CORPUSCULAR HEMOGLOBIN 29.8 pg (27.0-31.0); MEAN CORPUSCULAR HGB CONC 33.3 g/dL (33.0-37.0); RED CELL DISTRIBUTION WIDTH 13.6 % (11.5-14.5); WHITE BLOOD COUNT 7.1 K/uL (4.8-10.8)
[2017-05-09 07:20] LABS: BLOOD UREA NITROGEN 21 mg/dl (7-17); CALCIUM 8.6 mg/dL (8.4-10.2); CARBON DIOXIDE 24 mmol/L (22-30); CHLORIDE 108 mmol/L (98-107); GFR AFRICAN-AMERICAN > 60; GLUCOSE,RANDOM 93 mg/dL (65-105); SODIUM 141 mmol/l (132-148)
[2017-05-09 07:49] VITALS: RESP 20
[2017-05-09] MEDS: Brimonidine 0.2% 50 DROP/5 ML BOTTLE OU SCH ×2 (10:47→14:46)
[2017-05-09] MEDS: Artificial Tears Opht Soln OU SCH (10:48)
[2017-05-09] MEDS: Insulin Lispro Mix 75/25 100 units/ml (HumaLog) 10ml SC SCH (10:49)
[2017-05-09] MEDS: Ciprofloxacin 0.3% OPTH SOLN OU SCH (10:49)
[2017-05-09] MEDS: Enoxaparin 40 mg Syringe SC SCH (10:51)
[2017-05-09] MEDS: PrednisoLONE 1% OPTH SUSP OU SCH ×3 (10:52→14:47)
[2017-05-09] MEDS: Levothyroxine 75 MCG TAB PO SCH (10:53)
[2017-05-09] MEDS: cefTRIAXone IV 1 gm in Dextros 50 ML IVPB SCH (10:58)
--- NOTE | 2017-05-09 12:09 | CP.PCM.DIS ---
Provider - Provider Date of Admission: 05/08/17 14:54 Attending physician: Morris Mcginnis MD Time Spent in preparation of Discharge (in minutes): 35 Diagnosis - Discharge Diagnosis (1) Urinary tract infection Status: Acute Comment: tx with 2 days of IV rocephin. will d/c on Cipro 250mg BID (2) Delusion Status: Resolved (3) Insulin dependent type 2 diabetes mellitus Status: Chronic Comment: controlled (4) DVT prophylaxis Status: Acute (5) Dementia Status: Chronic (6) Hypertension Status: Chronic Comment: mildly elevated, on IVF. Patient can follow up as outpatient for medication adjustment (7) Hypothyroidism (acquired) Status: Chronic (8) Fall Status: Acute Hospital Course - Lab Results Lab Results: Micro Results 05/07/17 08:00 Blood-Venous Blood Culture - Preliminary NO GROWTH AFTER 48 HOURS 05/07/17 08:02 Urine,Clean Catch Urine Culture - Final Gram Negative Barak Most Recent Lab Values WBC 7.1 K/uL (4.8-10.8) 05/09/17 06:34 RBC 3.80 Mil/uL (3.80-5.20) 05/09/17 06:34 Hgb 11.3 g/dL (12.0-16.0) L 05/09/17 06:34 Hct 34.0 % (34.0-47.0) 05/09/17 06:34 MCV 89.3 fl (81.0-99.0) 05/09/17 06:34 MCH 29.8 pg (27.0-31.0) 05/09/17 06:34 MCHC 33.3 g/dL (33.0-37.0) 05/09/17 06:34 RDW 13.6 % (11.5-14.5) 05/09/17 06:34 Plt Count 288 K/uL (130-400) 05/09/17 06:34 MPV 9.8 fl (7.2-11.7) 05/07/17 08:45 Neut % (Auto) 73.4 % (50.0-75.0) 05/07/17 08:45 Lymph % (Auto) 19.8 % (20.0-40.0) L 05/07/17 08:45 [place] % (Auto) 5.5 % (0.0-10.0) 05/07/17 08:45 Eos % (Auto) 0.2 % (0.0-4.0) 05/07/17 08:45 Baso % (Auto) 1.1 % (0.0-2.0) 05/07/17 08:45 Neut # 8.1 K/uL (1.8-7.0) H 05/07/17 08:45 Lymph # 2.2 K/uL (1.0-4.3) 05/07/17 08:45 [place] # 0.6 K/uL (0.0-0.8) 05/07/17 08:45 Eos # 0.0 K/uL (0.0-0.7) 05/07/17 08:45 Baso # 0.1 K/uL (0.0-0.2) 05/07/17 08:45 pO2 26 mm/Hg (30-55) L 05/07/17 08:55 VBG pH 7.33 (7.32-7.43) 05/07/17 08:55 VBG pCO2 51 mmHg (40-60) 05/07/17 08:55 VBG HCO3 23.6 mmol/L 05/07/17 08:55 VBG Total CO2 28.5 mmol/L (22-28) H 05/07/17 08:55 VBG O2 Sat (Calc) 55.1 % (40-65) 05/07/17 08:55 VBG Base Excess 0.2 mmol/L (0.0-2.0) 05/07/17 08:55 VBG Potassium 4.9 mmol/L (3.6-5.2) 05/07/17 08:55 Sodium 138.0 mmol/L (132-148) 05/07/17 08:55 Chloride 106.0 mmol/L (98-107) 05/07/17 08:55 Glucose 184 mg/dL (65-105) H 05/07/17 08:55 Lactate 2.1 mmol/L (0.7-2.1) 05/07/17 08:55 FiO2 21.0 % 05/07/17 08:55 Blood Gas Comments Lactate 2.1 05/07/17 08:55 Crit Value Called To tara Greer 05/07/17 08:55 Crit Value Called By 203 05/07/17 08:55 Crit Value Read Back Y 05/07/17 08:55 Blood Gas Notified Time 901 05/07/17 08:55 Sodium 141 mmol/l (132-148) 05/09/17 06:34 Potassium 4.0 MMOL/L (3.6-5.0) 05/09/17 06:34 Chloride 108 mmol/L (98-107) H 05/09/17 06:34 Carbon Dioxide 24 mmol/L (22-30) 05/09/17 06:34 Anion Gap 13 (10-20) 05/09/17 06:34 BUN 21 mg/dl (7-17) H 05/09/17 06:34 Creatinine 0.7 mg/dl (0.7-1.2) 05/09/17 06:34 Est GFR ( Amer) > 60 05/09/17 06:34 Est GFR (Non-Af Amer) > 60 05/09/17 06:34 POC Glucose (mg/dL) 79 mg/dL (65-110) 05/09/17 05:56 Random Glucose 93 mg/dL (65-105) 05/09/17 06:34 Calcium 8.6 mg/dL (8.4-10.2) 05/09/17 06:34 Total Bilirubin 0.3 mg/dl (0.2-1.3) 05/07/17 08:45 AST 33 U/L (14-36) 05/07/17 08:45 ALT 49 U/L (9-52) 05/07/17 08:45 Alkaline Phosphatase 82 U/L (38-126) 05/07/17 08:45 Total Protein 8.0 G/DL (6.3-8.2) 05/07/17 08:45 Albumin 4.5 g/dL (3.5-5.0) 05/07/17 08:45 Globulin 3.5 gm/dL (2.2-3.9) 05/07/17 08:45 Albumin/Globulin Ratio 1.3 (1.0-2.1) 05/07/17 08:45 Venous Blood Potassium 4.9 mmol/L (3.6-5.2) 05/07/17 08:55 Urine Color Yellow (YELLOW) 05/07/17 08:02 Urine Clarity Slighty-cloudy (Clear) 05/07/17 08:02 Urine pH 5.0 (5.0-8.0) 05/07/17 08:02 Ur Specific [place] 1.018 (1.003-1.030) 05/07/17 08:02 Urine Protein 100 mg/dL (NEGATIVE) 05/07/17 08:02 Urine Glucose (UA) >=500 mg/dL (Normal) 05/07/17 08:02 Urine Ketones Negative mg/dL (NEGATIVE) 05/07/17 08:02 Urine Blood Negative (NEGATIVE) 05/07/17 08:02 Urine Nitrate Negative (NEGATIVE) 05/07/17 08:02 Urine Bilirubin Negative (NEGATIVE) 05/07/17 08:02 Urine Urobilinogen 0.2-1.0 mg/dL (0.2-1.0) 05/07/17 08:02 Ur Leukocyte Esterase Mod Ajay/uL (Negative) 05/07/17 08:02 Urine RBC (Auto) 1 /hpf (0-3) 05/07/17 08:02 Urine Microscopic WBC 32 /hpf (0-5) H 05/07/17 08:02 Ur Squamous Epith Cells < 1 /hpf (0-5) 05/07/17 08:02 Urine Bacteria Occ (<OCC) H 05/07/17 08:02 Hyaline Casts 0-2 /hpf (0-2) 05/07/17 08:02 Salicylates < 1.0 mg/dl 05/07/17 08:45 Influenza Typ A,B (EIA) Negative for flu a/b (NEGATIVE) 05/07/17 08:45 - Hospital Course Hospital Course: 81 year old female presented s/p fall, with hx of urinary frequency and auditory /visual hallucinations. Symptoms have resolved, likely 2' to dehydration. She is feeling well. Treated with 2 days of IV antibiotics for UTI and IVF. No AH/VH. She is ready to go home. She can continue with PO antibiotics. Diabetes is controlled. Likely hyperglycemic secondary to infection. Discharge Exam - Head Exam Head Exam: NORMAL INSPECTION, NORMOCEPHALIC - Respiratory Exam Respiratory Exam: NORMAL BREATHING PATTERN - Cardiovascular Exam Cardiovascular Exam: REGULAR RHYTHM - GI/Abdominal Exam GI & Abdominal Exam: Unremarkable - Neurological Exam Neurological exam: Alert, CN II-XII Intact - Psychiatric Exam Psychiatric exam: Normal Affect, Normal Mood - Skin Skin Exam: Dry, Intact, Warm Discharge Plan - Discharge Medications Prescriptions: Ciprofloxacin [Cipro] 250 mg PO BID #10 tab - Follow Up Plan Condition: STABLE Disposition: HOME/ ROUTINE Instructions: Urinary Tract Infection in Women (DC), Fall Prevention (DC) Additional Instructions: Complete all antibiotics. F/u with Dr. Patience Schroeder in 1 week Referrals: Madi Schroeder MD [Family Provider] -
[2017-05-09 16:25] VITALS: BP 164/77; PULSE 61; TEMP 98; O2SAT 97
== END 2017-05-09 17:38 | disposition home or self-care (01) | DRG 690 ==
LOC: H.ER 06:19 → H.ERHOLD 09:40 → H.MEDSURG1 18:40 → OBSVTOIN 05-08 14:54
PROVIDERS: ADMIT Family Medicine; ATTEND Family Medicine
DX: N39.0 Urinary tract infection, site not specified (principal); E11.65 Type 2 diabetes mellitus with hyperglycemia; I11.0 Hypertensive heart disease with heart failure; I50.22 Chronic systolic (congestive) heart failure; F22 Delusional disorders; E86.0 Dehydration; G30.9 Alzheimer's disease, unspecified; F02.80 Dementia in other diseases classified elsewhere, unspecified severity, without behavioral disturbance, psychotic disturbance, mood disturbance, and anxiety; Z79.4 Long term (current) use of insulin; H54.8 Legal blindness, as defined in USA; Z88.6 Allergy status to analgesic agent; Z88.2 Allergy status to sulfonamides; E03.9 Hypothyroidism, unspecified; E78.5 Hyperlipidemia, unspecified; Z86.73 Personal history of transient ischemic attack (TIA), and cerebral infarction without residual deficits; E78.00 Pure hypercholesterolemia, unspecified; K29.70 Gastritis, unspecified, without bleeding; F32.9 Major depressive disorder, single episode, unspecified; F41.9 Anxiety disorder, unspecified

== ENCOUNTER 2017-05-13 08:48 | Inpatient (IN) | payer MEDICARE ==
[2017-05-13] MEDS ORDERED: Sodium Chloride 0.9% 500 ML IV STA (09:29)
--- NOTE | 2017-05-13 09:34 | ED PDOC ---
HPI: General Adult Time Seen by Provider: 05/13/17 09:11 Chief Complaint (Nursing): Headache Chief Complaint (Provider): Hallucinations History Per: Patient History/Exam Limitations: no limitations Onset/Duration Of Symptoms: Days (yesterday) Have you had recent travel within the past 21 days to any of the following countries: [place], [place], [place] or [place]?: No Current Symptoms Are (Timing): Better Additional Complaint(s): History from family and pt. Pt. was admitted for uti and dehydration recently and dc Friday with antibiotics. She had some hallucinations at that admission. Was doing well on the weekend and then yesterday to today she has been hallucinating. She is seeing men on the wall. Is aggressive. Pt currently denies any chest pain, dyspnea, weakness, headaches, abd pain. Not suicidal or homicidal. No fever, cough, congestion. 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; L side weakness), Dementia, Depression, Diabetes, Diverticulitis (Diverticulosis), Fractures (rt wrist/elbow), Gastritis, HTN, Hypercholesterolemia, Hyperlipidemia, Hypothyroidism, Migraine, Pneumonia, TIA ( 2013) Denies: Arthritis, HIV, Chronic Kidney Disease - Surgical History Surgical History: Tonsillectomy (partial thyroidectomy) Denies: CABG - Family History Family History: States: Unknown Family Hx - Living Arrangements Living Arrangements: With Family - Social History Current smoker - smoking cessation education provided: No Alcohol: None Drugs: Denies - Home Medications Home Medications: Ambulatory Orders Medication Instructions Recorded Acetaminophen/Butalbital/Caf 1 tab PO Q8H PRN 08/23/15 [Fioricet] Atorvastatin [Lipitor] 40 mg PO HS 08/23/15 Brimonidine Tartrate/Timolol 1 drop BOTHEYES BID 08/23/15 [Combigan 0.2%-0.5% Eye Drops] Cholecalciferol [Vitamin D 1000 IU] 1,000 units PO HS 08/23/15 Clopidogrel [Plavix] 75 mg PO DAILY 08/23/15 Donepezil [Aricept] 10 mg PO HS 08/23/15 Insulin Aspart Prot/Insuln Asp 10 units SC DIN 08/23/15 [Novolog Mix 70-30 Vial] Latanoprost 0.005% Opht [Xalatan 1 drop EACHEYE HS 08/23/15 Opht] Levothyroxine [Synthroid] 75 mcg PO DAILY 08/23/15 Meclizine HCl [Antivert] 25 mg PO TID PRN 08/23/15 Memantine [Namenda] 10 mg PO BID 08/23/15 Prednisolone Acetate [Pred Forte] 1 drop BOTHEYES QID 08/23/15 Ramipril 5 mg PO DAILY 08/23/15 Ranitidine HCl [Zantac] 150 mg PO BID 08/23/15 Sertraline [Zoloft] 50 mg PO HS 08/23/15 Docusate [Colace] 200 mg PO HS 10/02/16 Insulin Aspart/Insulin Aspar 50 unit SC BRK 10/02/16 [Novolog Mix 70/30 (70/30 units/ml)] Metoprolol Tartrate [Lopressor] 12.5 mg PO DAILY PRN 10/02/16 Moxifloxacin HCl [Vigamox] 1 drop EACHEYE Q2H 10/02/16 cycloSPORINE [Restasis] 1 drop EACHEYE Q12H 10/02/16 Ciprofloxacin [Cipro] 250 mg PO BID #10 tab 05/09/17 - Allergies Allergies/Adverse Reactions: Allergies Allergy/AdvReac Type Severity Reaction Status Date / Time aspirin Allergy NAUSEA Verified 05/13/17 09:32 Sulfa (Sulfonamide Allergy RASH Verified 05/13/17 09:32 Antibiotics) Iodinated Contrast- Oral and AdvReac VOMITING Verified 05/13/17 09:32 IV Dye metformin AdvReac DIARRHEA Verified 05/13/17 09:32 Review of Systems ROS Statement: Except As Marked, All Systems Reviewed And Found Negative Psych: Positive for: Psychosis (off and on hallucinations) Physical Exam - Reviewed Nursing Documentation Reviewed: Yes Vital Signs Reviewed: Yes - Physical Exam Appears: Positive for: Non-toxic, No Acute Distress Head Exam: Positive for: ATRAUMATIC, NORMAL INSPECTION, NORMOCEPHALIC Skin: Positive for: Normal Color, Warm, DRY Eye Exam: Positive for: EOMI, Other (b/l eye blindness and no clear pupils) ENT: Positive for: Normal ENT Inspection. Negative for: Nasal Congestion, Pharyngeal Erythema Neck: Positive for: Normal, Painless ROM, Supple Cardiovascular/Chest: Positive for: Regular Rate, Rhythm Respiratory: Positive for: Normal Breath Sounds Gastrointestinal/Abdominal: Positive for: Normal Exam, Bowel Sounds, Soft. Negative for: Tenderness Back: Positive for: Normal Inspection. Negative for: L CVA Tenderness, R CVA Tenderness Extremity: Positive for: Normal ROM. Negative for: Tenderness, Pedal Edema Neurologic/Psych: Positive for: Alert, Oriented, Motor/Sensory Deficits (L upper and lower 3/5 strength; R upper and lower 4/5 strength). Negative for: Aphasia, Facial Droop - Laboratory Results Result Diagrams: 05/13/17 10:17 05/13/17 10:17 Interpretation Of Abn Labs: 26 wbc, urine wbc - ECG O2 Sat by Pulse Oximetry: 97 Pulse Ox Interpretation: Normal - Progress ED Course And Treament: 1204: Stable. Will need admit for further tx for uti. Failed outpt. Hallucinations likely with dementia and urine infection. Spoke with Dr. Mcginnis. Will admit medsurg. Disposition - Clinical Impression Clinical Impression: UTI (urinary tract infection), Dementia - Patient ED Disposition Is Patient to be Admitted: Yes Counseled Patient/Family Regarding: Studies Performed, Diagnosis - Disposition Disposition Time: 11:30 Condition: FAIR - Pt Status Changed To: Hospital Disposition Of: Inpatient - Admit Certification Admit to Inpatient:: After my assessment, the patient will require hospitalization for at least two midnights. This is because of the severity of symptoms shown, intensity of services needed, and/or the medical risk in this patient being treated as an outpatient. - POA Present On Arrival: None
[2017-05-13 10:21] LABS: BASO % 0.5 % (0.0-2.0); EOS # 0.1 K/uL (0.0-0.7); EOS % 0.9 % (0.0-4.0); HEMATOCRIT 33.6 % (34.0-47.0); LYMPH # 2.3 K/uL (1.0-4.3); LYMPH % 23.8 % (20.0-40.0); MEAN CELL VOLUME 90.4 fl (81.0-99.0); MEAN CORPUSCULAR HGB CONC 33.2 g/dL (33.0-37.0); MEAN PLATELET VOLUME 9.5 fl (7.2-11.7); MONO # 0.6 K/uL (0.0-0.8); MONO % 6.5 % (0.0-10.0); NEUT # 6.5 K/uL (1.8-7.0); NEUT % 68.3 % (50.0-75.0); NRBC % 0.1 % (0.0-0.0); RED CELL DISTRIBUTION WIDTH 13.6 % (11.5-14.5); WHITE BLOOD COUNT 9.5 K/uL (4.8-10.8)
[2017-05-13 10:33] LABS: PARTIAL THROMBOPLASTIN TIME 30.5 Seconds (25.6-37.1)
[2017-05-13 10:41] LABS: RBC URINE 3 /hpf (0-3); URINE BACTERIA RARE (<OCC); URINE BILIRUBIN NEGATIVE (NEGATIVE); URINE BLOOD NEGATIVE (NEGATIVE); URINE COLOR YELLOW (YELLOW); URINE GLUCOSE (UA) >=500 mg/dL (Normal); URINE KETONE NEGATIVE (NEGATIVE); URINE LEUKOCYTE ESTERASE LARGE Leu/uL (Negative); URINE PROTEIN 100 mg/dL (NEGATIVE); URINE UROBILINOGEN 0.2-1.0 mg/dL (0.2-1.0); WBC CLUMPS FEW /hpf; WBC URINE 131 /hpf (0-5)
[2017-05-13 10:53] LABS: ALB/GLOB RATIO 1.2 (1.0-2.1); ALCOHOL SERUM < 10 mg/dl (0-10); ALKALINE PHOSPHATASE 72 U/L (38-126); ALT/SGPT 49 U/L (9-52); AST/SGOT 39 U/L (14-36); BILIRUBIN,TOTAL 0.3 mg/dl (0.2-1.3); BLOOD UREA NITROGEN 26 mg/dl (7-17); CALCIUM 8.9 mg/dL (8.4-10.2); CARBON DIOXIDE 23 mmol/L (22-30); CHLORIDE 105 mmol/L (98-107); GFR AFRICAN-AMERICAN > 60; GLUCOSE,RANDOM 162 mg/dL (65-105); POTASSIUM 4.1 MMOL/L (3.6-5.0); SODIUM 140 mmol/l (132-148); TOTAL PROTEIN 7.7 G/DL (6.3-8.2)
--- NOTE | 2017-05-13 11:24 | RAD ---
HISTORY: dyspnea COMPARISON: Chest radiograph dated 05/07/2017. FINDINGS: LUNGS: Stable mild pulmonary vascular congestion. No focal consolidation. PLEURA: No significant pleural effusion identified, no pneumothorax apparent. CARDIOVASCULAR: Unchanged. OSSEOUS STRUCTURES: No significant abnormalities. VISUALIZED UPPER ABDOMEN: Normal. OTHER FINDINGS: None. IMPRESSION: Stable mild pulmonary vascular congestion. No significant interval change.
[2017-05-13] MEDS ORDERED: Ciprofloxacin 400mg/200ml D5W 400 MG/200 ML BAG IV STA (12:03)
--- NOTE | 2017-05-13 12:15 | CT ---
PROCEDURE: CT HEAD WITHOUT CONTRAST. HISTORY: headache COMPARISON: 05/07/2027 TECHNIQUE: Axial computed tomography images were obtained through the head/brain without intravenous contrast. Radiation dose: Total exam DLP = 854.45 mGy-cm. This CT exam was performed using one or more of the following dose reduction techniques: Automated exposure control, adjustment of the mA and/or kV according to patient size, and/or use of iterative reconstruction technique. FINDINGS: HEMORRHAGE: No intracranial hemorrhage. BRAIN: No mass effect or edema. Mild diffuse age-appropriate cerebral atrophy. Mild periventricular white matter lucency consistent with age-related microvascular ischemic change. No evidence of acute infarct. VENTRICLES: Unremarkable. No hydrocephalus. CALVARIUM: Unremarkable. PARANASAL SINUSES: Unremarkable as visualized. No significant inflammatory changes. MASTOID AIR CELLS: Unremarkable as visualized. No inflammatory changes. OTHER FINDINGS: None. IMPRESSION: No intracranial mass, hemorrhage or evidence of acute infarct. Age-appropriate involutional change. No change from 05/07/2017.
[2017-05-13] MEDS ORDERED: Ciprofloxacin 400mg/200ml D5W 400 MG/200 ML BAG IVPB ONE (12:26)
[2017-05-13] MEDS ORDERED: Artificial Tears Opht Soln OU SCH (15:45)
[2017-05-13] MEDS: Lactated Ringer's 1,000 ML IV SCH (16:30)
[2017-05-13] MEDS: Ciprofloxacin 0.3% OPTH SOLN OU SCH ×4 (17:07→23:41)
[2017-05-13] MEDS: Artificial Tears Opht Soln OU SCH (17:08)
[2017-05-13] MEDS: Brimonidine 0.2% 50 DROP/5 ML BOTTLE OU SCH (17:09)
[2017-05-13] MEDS: PrednisoLONE 1% OPTH SUSP OU SCH ×2 (17:10→22:10)
[2017-05-13] MEDS ORDERED: Ciprofloxacin 200mg/100ml D5W 100 ML IVPB SCH (21:00)
[2017-05-13] MEDS: Latanoprost 0.005% Opht SOUTION OU SCH (23:06)
[2017-05-14] MEDS: Ciprofloxacin 200mg/100ml D5W 100 ML IVPB SCH ×3 (00:32→20:02)
[2017-05-14] MEDS: Lactated Ringer's 1,000 ML IV SCH ×5 (00:33→20:01)
[2017-05-14] MEDS: Ciprofloxacin 0.3% OPTH SOLN OU SCH ×12 (01:47→23:53)
[2017-05-14] MEDS: Artificial Tears Opht Soln OU SCH ×2 (05:02→18:16)
[2017-05-14] MEDS: Apap-Butalbital-Caffeine 325-50-40mg Tab PO PRN ×2 (05:07→12:40)
[2017-05-14] MEDS: Levothyroxine 75 MCG TAB PO SCH (06:26)
--- NOTE | 2017-05-14 07:25 | CARD ---
APPROVED REPORT EKG Measurement Heart [id number] <Conclusion> Normal sinus rhythm Nonspecific ST and T wave abnormality Abnormal ECG
--- NOTE | 2017-05-14 08:43 | CP.PCM.CON ---
History of Present Illness - History of Present Illness History of Present Illness: Psychiatry Consult History obtained from patient's daughter and the chart. 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 She denies current hallucinations, mood symptoms, SI/HI. Daughter states that the patient has history of hallucinations in the context of active medical problems or post anesthesia, but otherwise has no significant psychiatric history or history of psychosis. Daughter also reports that the patient has had reduced PO intake and poor sleep recently. 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 PSH: b/l corneal transplant, partial thyroidectomy, Rt breast lumpectomy (benign ) Allergies: ASA, Metformin, Sulfa drugs Medications: See Med Rec MSE: A + O x self, location (not date), calm, cooperative, make eye contact ( but patient legally blind), speech soft, mood/affect- neutral, thought process- coherent, thought content- no delusions, perception- no hallucinations, no SI/HI , insight/judgment limited by dementia Impression: 81 yo female w/ history of dementia, had episodes of visual hallucinations for the past few days, now resolved, patient was likely acutely delirious due to acute medical conditions, including active UTI. -No acute inpatient psychiatric admission indicated -If patient becomes agitated or acutely psychotic, can give Risperal 0.25 mg PO Q 12 HR PRN or Haldol 0.5 mg IM Q12 PRN; patient should not be discharged on antipsychotics if symptoms are resolved once medical issues improve -Continue Zoloft 50 mg PO Daily Past Patient History - Infectious Disease Hx of Infectious Diseases: None - Tetanus Immunizations Tetanus Immunization: Unknown - Past Medical History & Family History Past Medical History?: Yes - Past Social History Smoking Status: Never Smoked - CARDIAC Hx Cardiac Disorders: Yes Hx Congestive Heart Failure: Yes Hx Hypercholesterolemia: Yes Hx Hypertension: Yes - PULMONARY Hx Respiratory Disorders: Yes Hx Pneumonia: Yes - NEUROLOGICAL Hx Neurological Disorder: Yes Hx Alzheimer's Disease: Yes Hx Dementia: Yes Hx Migraine: Yes Hx Transient Ischemic Attacks (TIA): Yes (2013) - HEENT Hx HEENT Problems: Yes Hx Cataracts: Yes (s/p surgery) Hx Glaucoma: Yes Other/Comment: Hx legally blind. Hx Diabetic Retinopathy - RENAL Hx Chronic Kidney Disease: No - ENDOCRINE/METABOLIC Hx Endocrine Disorders: Yes Hx Hypothyroidism: Yes - HEMATOLOGICAL/ONCOLOGICAL Hx Blood Disorders: Yes Hx Anemia: Yes Hx Human Immunodeficiency Virus (HIV): No - INTEGUMENTARY Hx Dermatological Problems: No - MUSCULOSKELETAL/RHEUMATOLOGICAL Hx Musculoskeletal Disorders: Yes Hx Arthritis: No Hx Falls: Yes Hx Fractures: Yes (rt wrist/elbow) - GASTROINTESTINAL Hx Gastrointestinal Disorders: Yes Hx Diverticulitis: Yes (Diverticulosis) Hx Gastritis: Yes - GENITOURINARY/GYNECOLOGICAL Hx Genitourinary Disorders: Yes Hx Urinary Tract Infection: Yes Other/Comment: left breast cyst - PSYCHIATRIC Hx Psychophysiologic Disorder: Yes Hx Anxiety: Yes Hx Depression: Yes Hx Substance Use: No - SURGICAL HISTORY Hx Surgeries: Yes Hx Coronary Artery Bypass Graft: No Hx Tonsillectomy: Yes (partial thyroidectomy) - ANESTHESIA Hx Anesthesia: Yes Hx Anesthesia Reactions: Yes (HALLUCINATION, CONFUSION) Hx Malignant Hyperthermia: No Has any member of the family had a problem w/ anesthesia?: No Meds Allergies/Adverse Reactions: Allergies Allergy/AdvReac Type Severity Reaction Status Date / Time aspirin Allergy NAUSEA Verified 05/13/17 09:32 Sulfa (Sulfonamide Allergy RASH Verified 05/13/17 09:32 Antibiotics) Iodinated Contrast- Oral and AdvReac VOMITING Verified 05/13/17 09:32 IV Dye metformin AdvReac DIARRHEA Verified 05/13/17 09:32 - Medications Medications: Current Medications Acetaminophen/Butalbital/Caffeine (Fioricet) 1 tab PO Q8H PRN PRN Reason: Migraine headache Last Admin: 05/14/17 05:07 Dose: 1 tab Artificial Tears (Artificial Tears) 1 drop OU Q12H [facility] Last Admin: 05/14/17 05:02 Dose: 1 drop Atorvastatin Calcium (Lipitor) 40 mg PO HS [facility] Last Admin: 05/13/17 23:07 Dose: 40 mg Brimonidine Tartrate (Alphagan 0.2% Opht) 1 drop OU TID [facility]IM[facility] Last Admin: 05/13/17 17:09 Dose: 1 drop Cholecalciferol (Vitamin D) 1,000 iu PO HS [facility] Last Admin: 05/13/17 23:22 Dose: 1,000 iu Ciprofloxacin (Ciloxan 0.3% Ophth Soln) 1 drop OU Q2H [facility] Last Admin: 05/14/17 06:26 Dose: 1 drop Clopidogrel Bisulfate (Plavix) 75 mg PO DAILY [facility] Donepezil HCl (Aricept) 10 mg PO [facility] Last Admin: 05/13/17 23:07 Dose: 10 mg Enoxaparin Sodium (Lovenox) 40 mg SC DAILY [facility] PRN Reason: Protocol Lactated Ringer's (Lactated Ringer's) 1,000 mls @ 120 mls/hr IV .Q8H20M [facility] Last Admin: 05/14/17 00:36 Dose: 120 mls/hr Ciprofloxacin (Cipro 200mg/100ml D5w) 100 mls @ 100 mls/hr IVPB Q12 [facility] Last Admin: 05/14/17 00:32 Dose: 100 mls/hr Latanoprost (Xalatan Opht) 1 drop OU [facility] Last Admin: 05/13/17 23:06 Dose: 1 drop Levothyroxine Sodium (Synthroid) 75 mcg PO DAILY@0630 [facility] Last Admin: 05/14/17 06:26 Dose: 75 mcg Meclizine HCl (Antivert) 25 mg PO TID PRN PRN Reason: Dizziness Memantine (Namenda) 10 mg PO BID [facility] Last Admin: 05/13/17 17:25 Dose: 10 mg Metoprolol Tartrate (Lopressor) 12.5 mg PO DAILY PRN PRN Reason: SBP >139 Prednisolone Acetate (Pred Forte 1% Opht Susp) 1 drop OU QID [facility] Last Admin: 05/13/17 22:10 Dose: 1 drop Ramipril (Altace) 5 mg PO DAILY [facility] Sertraline HCl (Zoloft) 50 mg PO [facility] Last Admin: 05/13/17 23:08 Dose: 50 mg Timolol Maleate (Timoptic 0.5% Ophth Soln) 1 drop OU BID [facility] Last Admin: 05/13/17 17:12 Dose: 1 drop Results - Vital Signs Recent Vital Signs: Last Vital Signs Temp 98.4 F 05/14/17 08:32 Pulse 62 05/14/17 08:32 Resp 20 05/14/17 08:32 BP 172/64 H 05/14/17 08:32 Pulse Ox 94 L 05/14/17 08:32 - Labs Result Diagrams: 05/13/17 10:17 05/13/17 10:17 Labs: Laboratory Results - last 24 hr 05/13/17 05/13/17 05/13/17 10:17 10:17 10:17 WBC 9.5 RBC 3.71 L Hgb 11.1 L Hct 33.6 L MCV 90.4 MCH 30.0 MCHC 33.2 RDW 13.6 Plt Count 319 MPV 9.5 Neut % (Auto) 68.3 Lymph % (Auto) 23.8 [place] % (Auto) 6.5 Eos % (Auto) 0.9 Baso % (Auto) 0.5 Neut # 6.5 Lymph # 2.3 [place] # 0.6 Eos # 0.1 Baso # 0.0 PT 11.8 INR 1.0 APTT 30.5 Sodium 140 Potassium 4.1 Chloride 105 Carbon Dioxide 23 Anion Gap 16 BUN 26 H Creatinine 0.8 Est GFR ( Amer) > 60 Est GFR (Non-Af Amer) > 60 POC Glucose (mg/dL) Random Glucose 162 H Calcium 8.9 Total Bilirubin 0.3 AST 39 H ALT 49 Alkaline Phosphatase 72 Troponin I < 0.0120 Total Protein 7.7 Albumin 4.2 Globulin 3.5 Albumin/Globulin Ratio 1.2 Urine Color Urine Clarity Urine pH Ur Specific [place] Urine Protein Urine Glucose (UA) Urine Ketones Urine Blood Urine Nitrate Urine Bilirubin Urine Urobilinogen Ur Leukocyte Esterase Urine RBC (Auto) Urine WBC Clumps (Auto) Urine Microscopic WBC Ur Squamous Epith Cells Urine Bacteria Urine Opiates Screen Urine Methadone Screen Ur Barbiturates Screen Ur Phencyclidine Scrn Ur Amphetamines Screen U Benzodiazepines Scrn U Oth Cocaine Metabols U Cannabinoids Screen Alcohol, Quantitative < 10 05/13/17 05/13/17 05/13/17 10:35 10:35 21:56 WBC RBC Hgb Hct MCV MCH MCHC RDW Plt Count MPV Neut % (Auto) Lymph % (Auto) [place] % (Auto) Eos % (Auto) Baso % (Auto) Neut # Lymph # [place] # Eos # Baso # PT INR APTT Sodium Potassium Chloride Carbon Dioxide Anion Gap BUN Creatinine Est GFR ( Amer) Est GFR (Non-Af Amer) POC Glucose (mg/dL) 134 H Random Glucose Calcium Total Bilirubin AST ALT Alkaline Phosphatase Troponin I Total Protein Albumin Globulin Albumin/Globulin Ratio Urine Color Yellow Urine Clarity Cloudy Urine pH 5.0 Ur Specific [place] 1.017 Urine Protein 100 Urine Glucose (UA) >=500 Urine Ketones Negative Urine Blood Negative Urine Nitrate Negative Urine Bilirubin Negative Urine Urobilinogen 0.2-1.0 Ur Leukocyte Esterase Large Urine RBC (Auto) 3 Urine WBC Clumps (Auto) Few H Urine Microscopic WBC 131 H Ur Squamous Epith Cells 2 Urine Bacteria Rare Urine Opiates Screen Negative Urine Methadone Screen Negative Ur Barbiturates Screen Positive H Ur Phencyclidine Scrn Negative Ur Amphetamines Screen Negative U Benzodiazepines Scrn Negative U Oth Cocaine Metabols Negative U Cannabinoids Screen Negative Alcohol, Quantitative 05/14/17 05:35 WBC RBC Hgb Hct MCV MCH MCHC RDW Plt Count MPV Neut % (Auto) Lymph % (Auto) [place] % (Auto) Eos % (Auto) Baso % (Auto) Neut # Lymph # [place] # Eos # Baso # PT INR APTT Sodium Potassium Chloride Carbon Dioxide Anion Gap BUN Creatinine Est GFR ( Amer) Est GFR (Non-Af Amer) POC Glucose (mg/dL) 146 H Random Glucose Calcium Total Bilirubin AST ALT Alkaline Phosphatase Troponin I Total Protein Albumin Globulin Albumin/Globulin Ratio Urine Color Urine Clarity Urine pH Ur Specific [place] Urine Protein Urine Glucose (UA) Urine Ketones Urine Blood Urine Nitrate Urine Bilirubin Urine Urobilinogen Ur Leukocyte Esterase Urine RBC (Auto) Urine WBC Clumps (Auto) Urine Microscopic WBC Ur Squamous Epith Cells Urine Bacteria Urine Opiates Screen Urine Methadone Screen Ur Barbiturates Screen Ur Phencyclidine Scrn Ur Amphetamines Screen U Benzodiazepines Scrn U Oth Cocaine Metabols U Cannabinoids Screen Alcohol, Quantitative
[2017-05-14] MEDS: Enoxaparin 40 mg Syringe SC SCH (09:08)
[2017-05-14] MEDS: Brimonidine 0.2% 50 DROP/5 ML BOTTLE OU SCH ×3 (09:09→18:16)
[2017-05-14] MEDS: PrednisoLONE 1% OPTH SUSP OU SCH ×4 (09:11→21:56)
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
[2017-05-14 15:00] VITALS: BMI 30.2
[2017-05-14] MEDS: Latanoprost 0.005% Opht SOUTION OU SCH (21:56)
[2017-05-14] MEDS: Insulin Lispro Mix 75/25 100 units/ml (HumaLog) 10ml SC SCH (21:57)
[2017-05-15] MEDS: Ciprofloxacin 0.3% OPTH SOLN OU SCH ×12 (01:44→23:25)
[2017-05-15] MEDS: Lactated Ringer's 1,000 ML IV SCH (04:56)
[2017-05-15] MEDS: Artificial Tears Opht Soln OU SCH ×2 (05:00→17:07)
[2017-05-15] MEDS: Levothyroxine 75 MCG TAB PO SCH (05:31)
[2017-05-15 06:58] LABS: BASO # 0.1 K/uL (0.0-0.2); BASO % 0.8 % (0.0-2.0); EOS # 0.2 K/uL (0.0-0.7); EOS % 2.6 % (0.0-4.0); HEMATOCRIT 31.3 % (34.0-47.0); LYMPH # 2.8 K/uL (1.0-4.3); LYMPH % 41.5 % (20.0-40.0); MEAN CELL VOLUME 88.7 fl (81.0-99.0); MEAN CORPUSCULAR HEMOGLOBIN 30.6 pg (27.0-31.0); MEAN CORPUSCULAR HGB CONC 34.5 g/dL (33.0-37.0); MEAN PLATELET VOLUME 9.2 fl (7.2-11.7); MONO # 0.6 K/uL (0.0-0.8); MONO % 8.4 % (0.0-10.0); NEUT # 3.1 K/uL (1.8-7.0); NEUT % 46.7 % (50.0-75.0); RED CELL DISTRIBUTION WIDTH 13.4 % (11.5-14.5); WHITE BLOOD COUNT 6.7 K/uL (4.8-10.8)
[2017-05-15 07:10] LABS: BLOOD UREA NITROGEN 13 mg/dl (7-17); CALCIUM 8.7 mg/dL (8.4-10.2); CARBON DIOXIDE 26 mmol/L (22-30); CHLORIDE 104 mmol/L (98-107); GFR AFRICAN-AMERICAN > 60; GLUCOSE,RANDOM 156 mg/dL (65-105); POTASSIUM 3.8 MMOL/L (3.6-5.0); SODIUM 138 mmol/l (132-148)
[2017-05-15] MEDS: Enoxaparin 40 mg Syringe SC SCH (08:53)
[2017-05-15] MEDS: Brimonidine 0.2% 50 DROP/5 ML BOTTLE OU SCH ×3 (08:55→17:06)
[2017-05-15] MEDS: PrednisoLONE 1% OPTH SUSP OU SCH ×4 (08:56→21:07)
[2017-05-15] MEDS: Insulin Lispro Mix 75/25 100 units/ml (HumaLog) 10ml SC SCH ×2 (08:57→17:10)
--- NOTE | 2017-05-15 11:53 | CP.PCM.PN ---
Subjective - Date & Time of Evaluation Date of Evaluation: 05/15/17 Time of Evaluation: 11:50 - Subjective Subjective: Patient seen and examined with Dr. Mcginnis. New onset cough, non productive. She has left basilar crackles, likely due to lying on left side, most likely fluid overload. will get CXR urine culture + for pseudomonas, change abx No longer having hallucinations. More alert today. Objective - Vital Signs/Intake and Output Vital Signs (last 24 hours): Temp Pulse Resp BP Pulse Ox 98.2 F 54 L 18 187/78 H 94 L 05/15/17 08:42 05/15/17 08:42 05/15/17 08:42 05/15/17 08:55 05/15/17 08:42 - Medications Medications: Current Medications Acetaminophen/Butalbital/Caffeine (Fioricet) 1 tab PO Q8H PRN PRN Reason: Migraine headache Last Admin: 05/14/17 12:40 Dose: 1 tab Artificial Tears (Artificial Tears) 1 drop OU Q12H [facility] Last Admin: 05/15/17 05:00 Dose: 1 drop Atorvastatin Calcium (Lipitor) 40 mg PO HS [facility] Last Admin: 05/14/17 21:56 Dose: 40 mg Brimonidine Tartrate (Alphagan 0.2% Opht) 1 drop OU TID [facility] Last Admin: 05/15/17 08:55 Dose: 1 drop Cholecalciferol (Vitamin D) 1,000 iu PO HS [facility] Last Admin: 05/14/17 21:56 Dose: 1,000 iu Ciprofloxacin (Ciloxan 0.3% Ophth Soln) 1 drop OU Q2H [facility] Last Admin: 05/15/17 11:45 Dose: 1 drop Clopidogrel Bisulfate (Plavix) 75 mg PO DAILY [facility] Last Admin: 05/15/17 08:54 Dose: 75 mg Donepezil HCl (Aricept) 10 mg PO HS [facility] Last Admin: 05/14/17 22:00 Dose: 10 mg Enoxaparin Sodium (Lovenox) 40 mg SC DAILY [facility] PRN Reason: Protocol Last Admin: 05/15/17 08:53 Dose: 40 mg Insulin Lispro Protam/Lispro Human (Humalog Mix 75/25) 10 units SC DIN [facility] Last Admin: 05/14/17 21:57 Dose: 10 units Insulin Lispro Protam/Lispro Human (Humalog Mix 75/25) 50 units SC BRK [facility] Last Admin: 05/15/17 08:57 Dose: 50 units Latanoprost (Xalatan Opht) 1 drop OU HS [facility] Last Admin: 05/14/17 21:56 Dose: 1 drop Levothyroxine Sodium (Synthroid) 75 mcg PO DAILY@0630 [facility] Last Admin: 05/15/17 05:31 Dose: 75 mcg Meclizine HCl (Antivert) 25 mg PO TID PRN PRN Reason: Dizziness Memantine (Namenda) 10 mg PO BID [facility] Last Admin: 05/15/17 08:54 Dose: 10 mg Metoprolol Tartrate (Lopressor) 12.5 mg PO DAILY PRN PRN Reason: SBP >139 Last Admin: 05/15/17 08:53 Dose: 12.5 mg Prednisolone Acetate (Pred Forte 1% Opht Susp) 1 drop OU QID [facility] Last Admin: 05/15/17 08:56 Dose: 1 drop Ramipril (Altace) 5 mg PO DAILY [facility] Last Admin: 05/15/17 08:55 Dose: 5 mg Risperidone (Risperdal Tab) 0.25 mg PO Q12 PRN PRN Reason: Agitation Sertraline HCl (Zoloft) 50 mg PO [facility] Last Admin: 05/14/17 21:56 Dose: 50 mg Timolol Maleate (Timoptic 0.5% Ophth Soln) 1 drop OU BID [facility] Last Admin: 05/15/17 08:56 Dose: 1 drop - Labs Labs: 05/15/17 06:35 05/15/17 06:35 PT 11.8 Seconds (9.8-13.1) 05/13/17 10:17 INR 1.0 (0.9-1.2) 05/13/17 10:17 APTT 30.5 Seconds (25.6-37.1) 05/13/17 10:17 - Constitutional Appears: Well, No Acute Distress - Head Exam Head Exam: ATRAUMATIC, NORMAL INSPECTION, NORMOCEPHALIC - Eye Exam Eye Exam: EOMI, Normal appearance, PERRL - ENT Exam ENT Exam: Mucous Membranes Moist - Respiratory Exam Respiratory Exam: Clear to Ausculation Bilateral, Rales (left basal rales, mild ), NORMAL BREATHING PATTERN - Cardiovascular Exam Cardiovascular Exam: REGULAR RHYTHM, +S1, +S2. absent: Bradycardia, Tachycardia , Murmur - GI/Abdominal Exam GI & Abdominal Exam: Soft, Normal Bowel Sounds. absent: Distended, Guarding, Tenderness - Rectal Exam Rectal Exam: Deferred - Neurological Exam Neurological Exam: Alert, Awake - Psychiatric Exam Psychiatric exam: Normal Affect, Normal Mood - Skin Skin Exam: Dry, Intact, Normal Color, Warm Assessment and Plan (1) Urinary tract infection Assessment & Plan: 80 year old female admitted with UTI with what is likely delirium vs behavioral disturbance associated with her dementia. Patients symptoms seem to appear when she is acutely ill and dehydrated and therefore related to acute medical conditions. ABX adjusted for sensitivies: CIPRO . She was seen and evaluated by psychiatry, recommendations appreciated. Ordered risperdal prn hypothyroidism: resume home medications Diabetes: sliding scale. lovenox for DVT prophylaxis follow up CXR case d/w Dr. 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
[2017-05-15] MEDS: guaiFENesin DM 200 mg-20 mg/10 ml UD PO PRN ×3 (12:17→23:25)
--- NOTE | 2017-05-15 12:34 | RAD ---
HISTORY: cough COMPARISON: 05/13/2017 FINDINGS: LUNGS: No active pulmonary disease. PLEURA: No significant pleural effusion identified, no pneumothorax apparent. CARDIOVASCULAR: Normal. OSSEOUS STRUCTURES: No significant abnormalities. VISUALIZED UPPER ABDOMEN: There may be some interval decrease in bowel distention from prior study. OTHER FINDINGS: There is moderate eventration of the right hemidiaphragm. IMPRESSION: No active disease. Decreased congestion and improved aeration from prior study.
[2017-05-15] MEDS: Ciprofloxacin 400mg/200ml D5W 400 MG/200 ML BAG IVPB SCH (21:05)
[2017-05-15] MEDS: Latanoprost 0.005% Opht SOUTION OU SCH (21:06)
[2017-05-15] MEDS: Apap-Butalbital-Caffeine 325-50-40mg Tab PO PRN (21:23)
[2017-05-16] MEDS: Ciprofloxacin 0.3% OPTH SOLN OU SCH ×12 (01:18→23:59)
[2017-05-16] MEDS: Artificial Tears Opht Soln OU SCH ×2 (05:42→16:58)
[2017-05-16] MEDS: Levothyroxine 75 MCG TAB PO SCH (05:44)
[2017-05-16] MEDS: Apap-Butalbital-Caffeine 325-50-40mg Tab PO PRN (06:03)
[2017-05-16] MEDS: Brimonidine 0.2% 50 DROP/5 ML BOTTLE OU SCH ×3 (08:43→16:57)
[2017-05-16] MEDS: Ciprofloxacin 400mg/200ml D5W 400 MG/200 ML BAG IVPB SCH ×2 (08:45→21:50)
[2017-05-16] MEDS: Enoxaparin 40 mg Syringe SC SCH (08:46)
[2017-05-16] MEDS: Insulin Lispro Mix 75/25 100 units/ml (HumaLog) 10ml SC SCH ×3 (08:46→17:42)
[2017-05-16] MEDS: PrednisoLONE 1% OPTH SUSP OU SCH ×4 (08:48→22:12)
[2017-05-16] MEDS: guaiFENesin DM 200 mg-20 mg/10 ml UD PO SCH ×3 (12:28→22:03)
--- NOTE | 2017-05-16 14:49 | CT ---
PROCEDURE: CT Chest without contrast HISTORY: cough, congestion,sob COMPARISON: None. TECHNIQUE: Contiguous axial images were obtained through the chest without intravenous contrast enhancement. Sagittal and coronal reconstructions were performed. Radiation dose (DLP): 634.15 mGy-cm. This CT exam was performed using one or more of the following dose reduction techniques: Automated exposure control, adjustment of the mA and/or kV according to patient size, and/or use of iterative reconstruction technique. FINDINGS: LUNGS: Hazy opacities are noted at the lung bases likely due to pulmonary congestion. No evidence of suspicious mass. MEDIASTINUM: Unremarkable thoracic aorta. No aneurysm. The heart is mildly enlarged. Main pulmonary artery unremarkable. No vascular congestion. No lymphadenopathy. PLEURA: Trace right pericardial effusion is noted. BONES: No fracture. No destructive lesion. UPPER ABDOMEN: Grossly unremarkable. OTHER FINDINGS: None. IMPRESSION: Mild cardiomegaly. Trace right pleural effusion. Ground-glass and hazy opacities at the lung bases likely represent pulmonary congestion. No radiographic evidence of pneumonia or suspicious mass.
--- NOTE | 2017-05-16 15:34 | RAD ---
HISTORY: nausea, vomiting COMPARISON: No prior. FINDINGS: BOWEL: Diffuse gaseous distention. Nonspecific bowel gas pattern. BONES: Normal. OTHER FINDINGS: None. IMPRESSION: Nonspecific bowel gas pattern.
[2017-05-16] MEDS: Promethazine/Cod 6.25mg-10mg/5ml Syr UD PO PRN (22:02)
[2017-05-16] MEDS: Latanoprost 0.005% Opht SOUTION OU SCH (22:14)
--- NOTE | 2017-05-16 22:18 | CP.PCM.PN ---
Subjective - Date & Time of Evaluation Date of Evaluation: 05/16/17 Time of Evaluation: 22:17 - Subjective Subjective: Patient continues to cough a lot. CXR showed more pulmonary congestion Had no sleep for the past 24 hrs. Has recurrence of visual hallucinations. Objective - Vital Signs/Intake and Output Vital Signs (last 24 hours): Temp Pulse Resp BP Pulse Ox 99.9 F H 68 20 144/63 94 L 05/16/17 18:25 05/16/17 17:00 05/16/17 17:00 05/16/17 21:51 05/16/17 17:00 - Medications Medications: Current Medications Acetaminophen (Tylenol 325mg Tab) 650 mg PO Q4 PRN PRN Reason: Fever >100.4 F Last Admin: 05/16/17 16:56 Dose: 650 mg Acetaminophen/Butalbital/Caffeine (Fioricet) 1 tab PO Q8H PRN PRN Reason: Migraine headache Last Admin: 05/16/17 06:03 Dose: 1 tab Amlodipine Besylate (Norvasc) 2.5 mg PO DAILY [facility] Last Admin: 05/16/17 08:47 Dose: 2.5 mg Artificial Tears (Artificial Tears) 1 drop OU Q12H [facility] Last Admin: 05/16/17 16:58 Dose: 1 drop Atorvastatin Calcium (Lipitor) 40 mg PO [facility] Last Admin: 05/16/17 22:02 Dose: 40 mg Benzonatate (Tessalon Perles) 100 mg PO TID PRN PRN Reason: Cough Last Admin: 05/16/17 09:44 Dose: 100 mg Brimonidine Tartrate (Alphagan 0.2% Opht) 1 drop OU TID [facility] Last Admin: 05/16/17 16:57 Dose: 1 drop Cholecalciferol (Vitamin D) 1,000 iu PO HS [facility] Last Admin: 05/16/17 22:13 Dose: 1,000 iu Ciprofloxacin (Ciloxan 0.3% Ophth Soln) 1 drop OU Q2H [facility] Last Admin: 05/16/17 22:16 Dose: 1 drop Clopidogrel Bisulfate (Plavix) 75 mg PO DAILY [facility] Last Admin: 05/16/17 08:47 Dose: 75 mg Donepezil HCl (Aricept) 10 mg PO HS [facility] Last Admin: 05/16/17 22:12 Dose: 10 mg Enoxaparin Sodium (Lovenox) 40 mg SC DAILY [facility] PRN Reason: Protocol Last Admin: 05/16/17 08:46 Dose: 40 mg Furosemide (Lasix) 40 mg PO DAILY [facility] Last Admin: 05/16/17 21:51 Dose: 40 mg Guaifenesin/Dextromethorphan (Robitussin Dm) 10 ml PO Q4 [facility] Last Admin: 05/16/17 22:03 Dose: Not Given Ciprofloxacin (Cipro 400mg/200ml Dsw) 400 mg in 200 mls @ 200 mls/hr IVPB Q12 [facility] PRN Reason: Protocol Last Admin: 05/16/17 21:50 Dose: 200 mls/hr Insulin Lispro Protam/Lispro Human (Humalog Mix 75/25) 10 units SC DIN [facility] Last Admin: 05/16/17 17:42 Dose: 10 units Insulin Lispro Protam/Lispro Human (Humalog Mix 75/25) 50 units SC BRK [facility] Last Admin: 05/16/17 09:07 Dose: Not Given Latanoprost (Xalatan Opht) 1 drop OU HS [facility] Last Admin: 05/16/17 22:14 Dose: 1 drop Levothyroxine Sodium (Synthroid) 75 mcg PO DAILY@0630 [facility] Last Admin: 05/16/17 05:44 Dose: 75 mcg Meclizine HCl (Antivert) 25 mg PO TID PRN PRN Reason: Dizziness Memantine (Namenda) 10 mg PO BID [facility] Last Admin: 05/16/17 16:58 Dose: 10 mg Metoprolol Tartrate (Lopressor) 12.5 mg PO DAILY PRN PRN Reason: SBP >139 Last Admin: 05/15/17 08:53 Dose: 12.5 mg Ondansetron HCl (Zofran Inj) 4 mg IVP Q4 PRN PRN Reason: Nausea/Vomiting Pantoprazole Sodium (Protonix Inj) 40 mg IVP DAILY [facility] Last Admin: 05/16/17 12:27 Dose: 40 mg Potassium Chloride (K-Dur 20 Meq Er Tab) 20 meq PO DAILY [facility] Prednisolone Acetate (Pred Forte 1% Opht Susp) 1 drop OU QID [facility] Last Admin: 05/16/17 22:12 Dose: 1 drop Promethazine HCl/Codeine (Phenergan/Codeine Oral Syrup) 15 ml PO HS PRN PRN Reason: Cough Last Admin: 05/16/17 22:02 Dose: 15 ml Ramipril (Altace) 5 mg PO DAILY [facility] Last Admin: 05/16/17 08:44 Dose: 5 mg Risperidone (Risperdal Tab) 0.25 mg PO Q12 PRN PRN Reason: Agitation Sertraline HCl (Zoloft) 50 mg PO HS [facility] Last Admin: 05/16/17 22:13 Dose: 50 mg Timolol Maleate (Timoptic 0.5% Oph Soln) 1 drop OU BID [facility] Last Admin: 05/16/17 16:59 Dose: 1 drop - Labs Labs: 05/15/17 06:35 05/15/17 06:35 PT 11.8 Seconds (9.8-13.1) 05/13/17 10:17 INR 1.0 (0.9-1.2) 05/13/17 10:17 APTT 30.5 Seconds (25.6-37.1) 05/13/17 10:17 Assessment and Plan - Assessment and Plan (Free Text) Plan: will increase lasix to 40 mg daily Promethazine with codeine at hs.
[2017-05-17] MEDS: Ciprofloxacin 0.3% OPTH SOLN OU SCH ×11 (02:34→21:29)
[2017-05-17] MEDS: Levothyroxine 75 MCG TAB PO SCH (05:52)
[2017-05-17] MEDS: Artificial Tears Opht Soln OU SCH ×2 (05:52→16:13)
[2017-05-17] MEDS: Insulin Lispro Mix 75/25 100 units/ml (HumaLog) 10ml SC SCH ×2 (08:50→16:14)
[2017-05-17] MEDS: Enoxaparin 40 mg Syringe SC SCH (08:50)
[2017-05-17] MEDS: Ciprofloxacin 400mg/200ml D5W 400 MG/200 ML BAG IVPB SCH ×2 (08:50→21:28)
[2017-05-17] MEDS: Potassium Chloride 20 mEq ER Tab PO SCH (08:51)
[2017-05-17] MEDS: guaiFENesin DM 200 mg-20 mg/10 ml UD PO SCH ×3 (08:55→16:14)
[2017-05-17] MEDS: PrednisoLONE 1% OPTH SUSP OU SCH ×4 (08:56→21:59)
[2017-05-17] MEDS: Brimonidine 0.2% 50 DROP/5 ML BOTTLE OU SCH ×3 (08:56→16:13)
[2017-05-17 09:54] LABS: ALB/GLOB RATIO 1.2 (1.0-2.1); ALKALINE PHOSPHATASE 68 U/L (38-126); ALT/SGPT 41 U/L (9-52); AST/SGOT 63 U/L (14-36); BILIRUBIN,TOTAL 0.3 mg/dl (0.2-1.3); BLOOD UREA NITROGEN 15 mg/dl (7-17); CALCIUM 8.1 mg/dL (8.4-10.2); CARBON DIOXIDE 32 mmol/L (22-30); CHLORIDE 94 mmol/L (98-107); GFR AFRICAN-AMERICAN > 60; GLUCOSE,RANDOM 174 mg/dL (65-105); POTASSIUM 3.4 MMOL/L (3.6-5.0); SODIUM 136 mmol/l (132-148); TOTAL PROTEIN 6.9 G/DL (6.3-8.2)
[2017-05-17] MEDS: Latanoprost 0.005% Opht SOUTION OU SCH (21:59)
[2017-05-17] MEDS: Promethazine/Cod 6.25mg-10mg/5ml Syr UD PO PRN (23:55)
[2017-05-18] MEDS: Ciprofloxacin 0.3% OPTH SOLN OU SCH ×12 (00:49→22:02)
[2017-05-18] MEDS: Artificial Tears Opht Soln OU SCH ×2 (05:28→16:45)
[2017-05-18] MEDS: Levothyroxine 75 MCG TAB PO SCH (05:31)
[2017-05-18] MEDS: PrednisoLONE 1% OPTH SUSP OU SCH ×4 (09:09→22:02)
[2017-05-18] MEDS: Insulin Lispro Mix 75/25 100 units/ml (HumaLog) 10ml SC SCH ×2 (09:13→17:27)
[2017-05-18] MEDS: Ciprofloxacin 400mg/200ml D5W 400 MG/200 ML BAG IVPB SCH ×2 (09:13→22:01)
[2017-05-18] MEDS: Enoxaparin 40 mg Syringe SC SCH (09:16)
[2017-05-18] MEDS: guaiFENesin DM 200 mg-20 mg/10 ml UD PO SCH ×3 (09:16→17:27)
[2017-05-18] MEDS: Brimonidine 0.2% 50 DROP/5 ML BOTTLE OU SCH ×3 (09:16→17:26)
[2017-05-18] MEDS: Potassium Chloride 20 mEq ER Tab PO SCH (09:17)
[2017-05-18] MEDS: Latanoprost 0.005% Opht SOUTION OU SCH (22:02)
[2017-05-18] MEDS: Promethazine/Cod 6.25mg-10mg/5ml Syr UD PO PRN (23:39)
[2017-05-19] MEDS: Ciprofloxacin 0.3% OPTH SOLN OU SCH ×6 (02:01→09:32)
[2017-05-19] MEDS: Artificial Tears Opht Soln OU SCH ×3 (04:13→16:08)
[2017-05-19] MEDS: Levothyroxine 75 MCG TAB PO SCH (06:36)
[2017-05-19 08:02] VITALS: RESP 20
[2017-05-19] MEDS ORDERED: Pantoprazole 40 mg EC Tab PO SCH (09:00)
[2017-05-19] MEDS: Ciprofloxacin 400mg/200ml D5W 400 MG/200 ML BAG IVPB SCH (09:38)
[2017-05-19] MEDS: Insulin Lispro Mix 75/25 100 units/ml (HumaLog) 10ml SC SCH (09:41)
[2017-05-19] MEDS: Brimonidine 0.2% 50 DROP/5 ML BOTTLE OU SCH ×3 (09:43→16:06)
[2017-05-19] MEDS: Potassium Chloride 20 mEq ER Tab PO SCH (09:44)
[2017-05-19] MEDS: Enoxaparin 40 mg Syringe SC SCH (09:45)
[2017-05-19] MEDS: PrednisoLONE 1% OPTH SUSP OU SCH ×3 (09:46→16:08)
[2017-05-19] MEDS: guaiFENesin DM 200 mg-20 mg/10 ml UD PO SCH ×3 (09:48→16:07)
--- NOTE | 2017-05-19 10:58 | CP.PCM.PN ---
Subjective - Date & Time of Evaluation Date of Evaluation: 05/17/17 Time of Evaluation: 10:00 - Subjective Subjective: Patient is doing a lot better Still coughs a lot hi at night Objective - Vital Signs/Intake and Output Vital Signs (last 24 hours): Temp Pulse Resp BP Pulse Ox 98.6 F 74 20 133/91 H 90 L 05/19/17 08:01 05/19/17 09:45 05/19/17 08:01 05/19/17 09:45 05/19/17 08:01 - Medications Medications: Current Medications Acetaminophen (Tylenol 325mg Tab) 650 mg PO Q4 PRN PRN Reason: Fever >100.4 F Last Admin: 05/18/17 00:12 Dose: 650 mg Acetaminophen/Butalbital/Caffeine (Fioricet) 1 tab PO Q8H PRN PRN Reason: Migraine headache Last Admin: 05/16/17 06:03 Dose: 1 tab Amlodipine Besylate (Norvasc) 2.5 mg PO DAILY [facility] Last Admin: 05/19/17 09:45 Dose: 2.5 mg Artificial Tears (Artificial Tears) 1 drop OU Q12H [facility] Last Admin: 05/19/17 04:15 Dose: 1 drop Atorvastatin Calcium (Lipitor) 40 mg PO HS [facility] Last Admin: 05/18/17 22:02 Dose: 40 mg Benzonatate (Tessalon Perles) 100 mg PO TID PRN PRN Reason: Cough Last Admin: 05/19/17 05:11 Dose: 100 mg Brimonidine Tartrate (Alphagan 0.2% Opht) 1 drop OU TID [facility] Last Admin: 05/19/17 09:43 Dose: 1 drop Cholecalciferol (Vitamin D) 1,000 iu PO HS [facility] Last Admin: 05/18/17 22:02 Dose: 1,000 iu Ciprofloxacin (Ciloxan 0.3% Ophth Soln) 1 drop OU Q2H [facility] Last Admin: 05/19/17 09:32 Dose: 1 drop Clopidogrel Bisulfate (Plavix) 75 mg PO DAILY [facility] Last Admin: 05/19/17 09:46 Dose: 75 mg Donepezil HCl (Aricept) 10 mg PO HS [facility] Last Admin: 05/18/17 22:02 Dose: 10 mg Enoxaparin Sodium (Lovenox) 40 mg SC DAILY [facility] PRN Reason: Protocol Last Admin: 05/19/17 09:45 Dose: 40 mg Furosemide (Lasix) 40 mg PO DAILY [facility] Last Admin: 05/19/17 09:44 Dose: 40 mg Guaifenesin/Dextromethorphan (Robitussin Dm) 10 ml PO TID [facility] Last Admin: 05/19/17 09:48 Dose: 10 ml Ciprofloxacin (Cipro 400mg/200ml Dsw) 400 mg in 200 mls @ 200 mls/hr IVPB Q12 [facility] PRN Reason: Protocol Last Admin: 05/19/17 09:38 Dose: 200 mls/hr Insulin Lispro Protam/Lispro Human (Humalog Mix 75/25) 10 units SC DIN [facility] Last Admin: 05/18/17 17:27 Dose: 10 units Insulin Lispro Protam/Lispro Human (Humalog Mix 75/25) 50 units SC BRK [facility] Last Admin: 05/19/17 09:41 Dose: Not Given Latanoprost (Xalatan Opht) 1 drop OU HS [facility] Last Admin: 05/18/17 22:02 Dose: 1 drop Levothyroxine Sodium (Synthroid) 75 mcg PO DAILY@0630 [facility] Last Admin: 05/19/17 06:36 Dose: 75 mcg Meclizine HCl (Antivert) 25 mg PO TID PRN PRN Reason: Dizziness Last Admin: 05/19/17 10:20 Dose: 25 mg Memantine (Namenda) 10 mg PO BID [facility] Last Admin: 05/19/17 09:45 Dose: 10 mg Metoprolol Tartrate (Lopressor) 12.5 mg PO DAILY PRN PRN Reason: SBP >139 Last Admin: 05/18/17 09:18 Dose: 12.5 mg Ondansetron HCl (Zofran Inj) 4 mg IVP Q4 PRN PRN Reason: Nausea/Vomiting Pantoprazole Sodium (Protonix Ec Tab) 40 mg PO DAILY [facility] Last Admin: 05/19/17 09:48 Dose: 40 mg Potassium Chloride (K-Dur 20 Meq Er Tab) 20 meq PO DAILY [facility] Last Admin: 05/19/17 09:44 Dose: 20 meq Prednisolone Acetate (Pred Forte 1% Opht Susp) 1 drop OU QID [facility] Last Admin: 05/19/17 09:46 Dose: 1 drop Promethazine HCl/Codeine (Phenergan/Codeine Oral Syrup) 15 ml PO HS PRN PRN Reason: Cough Last Admin: 05/18/17 23:39 Dose: 15 ml Ramipril (Altace) 5 mg PO DAILY [facility] Last Admin: 05/19/17 09:43 Dose: 5 mg Risperidone (Risperdal Tab) 0.25 mg PO Q12 PRN PRN Reason: Agitation Sertraline HCl (Zoloft) 50 mg PO HS [facility] Last Admin: 05/18/17 22:02 Dose: 50 mg Timolol Maleate (Timoptic 0.5% [facility]) 1 drop OU BID [facility] Last Admin: 05/19/17 09:33 Dose: 1 drop - Labs Labs: 05/15/17 06:35 05/17/17 08:15 PT 11.8 Seconds (9.8-13.1) 05/13/17 10:17 INR 1.0 (0.9-1.2) 05/13/17 10:17 APTT 30.5 Seconds (25.6-37.1) 05/13/17 10:17
--- NOTE | 2017-05-19 10:59 | CP.PCM.PN ---
Subjective - Date & Time of Evaluation Date of Evaluation: 05/18/17 Time of Evaluation: 10:00 - Subjective Subjective: Patient has less cough Has no chest pain or SOB afberile. Objective - Vital Signs/Intake and Output Vital Signs (last 24 hours): Temp Pulse Resp BP Pulse Ox 98.6 F 74 20 133/91 H 90 L 05/19/17 08:01 05/19/17 09:45 05/19/17 08:01 05/19/17 09:45 05/19/17 08:01 - Medications Medications: Current Medications Acetaminophen (Tylenol 325mg Tab) 650 mg PO Q4 PRN PRN Reason: Fever >100.4 F Last Admin: 05/18/17 00:12 Dose: 650 mg Acetaminophen/Butalbital/Caffeine (Fioricet) 1 tab PO Q8H PRN PRN Reason: Migraine headache Last Admin: 05/16/17 06:03 Dose: 1 tab Amlodipine Besylate (Norvasc) 2.5 mg PO DAILY [facility] Last Admin: 05/19/17 09:45 Dose: 2.5 mg Artificial Tears (Artificial Tears) 1 drop OU Q12H [facility] Last Admin: 05/19/17 04:15 Dose: 1 drop Atorvastatin Calcium (Lipitor) 40 mg PO HS [facility] Last Admin: 05/18/17 22:02 Dose: 40 mg Benzonatate (Tessalon Perles) 100 mg PO TID PRN PRN Reason: Cough Last Admin: 05/19/17 05:11 Dose: 100 mg Brimonidine Tartrate (Alphagan 0.2% Opht) 1 drop OU TID [facility] Last Admin: 05/19/17 09:43 Dose: 1 drop Cholecalciferol (Vitamin D) 1,000 iu PO HS [facility] Last Admin: 05/18/17 22:02 Dose: 1,000 iu Ciprofloxacin (Ciloxan 0.3% Ophth Soln) 1 drop OU Q2H [facility] Last Admin: 05/19/17 09:32 Dose: 1 drop Clopidogrel Bisulfate (Plavix) 75 mg PO DAILY [facility] Last Admin: 05/19/17 09:46 Dose: 75 mg Donepezil HCl (Aricept) 10 mg PO HS [facility] Last Admin: 05/18/17 22:02 Dose: 10 mg Enoxaparin Sodium (Lovenox) 40 mg SC DAILY [facility] PRN Reason: Protocol Last Admin: 05/19/17 09:45 Dose: 40 mg Furosemide (Lasix) 40 mg PO DAILY [facility] Last Admin: 05/19/17 09:44 Dose: 40 mg Guaifenesin/Dextromethorphan (Robitussin Dm) 10 ml PO TID [facility] Last Admin: 05/19/17 09:48 Dose: 10 ml Ciprofloxacin (Cipro 400mg/200ml Dsw) 400 mg in 200 mls @ 200 mls/hr IVPB Q12 [facility] PRN Reason: Protocol Last Admin: 05/19/17 09:38 Dose: 200 mls/hr Insulin Lispro Protam/Lispro Human (Humalog Mix 75/25) 10 units SC DIN [facility] Last Admin: 05/18/17 17:27 Dose: 10 units Insulin Lispro Protam/Lispro Human (Humalog Mix 75/25) 50 units SC BRK [facility] Last Admin: 05/19/17 09:41 Dose: Not Given Latanoprost (Xalatan Opht) 1 drop OU HS [facility] Last Admin: 05/18/17 22:02 Dose: 1 drop Levothyroxine Sodium (Synthroid) 75 mcg PO DAILY@0630 [facility] Last Admin: 05/19/17 06:36 Dose: 75 mcg Meclizine HCl (Antivert) 25 mg PO TID PRN PRN Reason: Dizziness Last Admin: 05/19/17 10:20 Dose: 25 mg Memantine (Namenda) 10 mg PO BID [facility] Last Admin: 05/19/17 09:45 Dose: 10 mg Metoprolol Tartrate (Lopressor) 12.5 mg PO DAILY PRN PRN Reason: SBP >139 Last Admin: 05/18/17 09:18 Dose: 12.5 mg Ondansetron HCl (Zofran Inj) 4 mg IVP Q4 PRN PRN Reason: Nausea/Vomiting Pantoprazole Sodium (Protonix Ec Tab) 40 mg PO DAILY [facility] Last Admin: 05/19/17 09:48 Dose: 40 mg Potassium Chloride (K-Dur 20 Meq Er Tab) 20 meq PO DAILY [facility] Last Admin: 05/19/17 09:44 Dose: 20 meq Prednisolone Acetate (Pred Forte 1% Opht Susp) 1 drop OU QID [facility] Last Admin: 05/19/17 09:46 Dose: 1 drop Promethazine HCl/Codeine (Phenergan/Codeine Oral Syrup) 15 ml PO HS PRN PRN Reason: Cough Last Admin: 05/18/17 23:39 Dose: 15 ml Ramipril (Altace) 5 mg PO DAILY [facility] Last Admin: 05/19/17 09:43 Dose: 5 mg Risperidone (Risperdal Tab) 0.25 mg PO Q12 PRN PRN Reason: Agitation Sertraline HCl (Zoloft) 50 mg PO HS [facility] Last Admin: 05/18/17 22:02 Dose: 50 mg Timolol Maleate (Timoptic 0.5% [facility]) 1 drop OU BID [facility] Last Admin: 05/19/17 09:33 Dose: 1 drop - Labs Labs: 05/15/17 06:35 05/17/17 08:15 PT 11.8 Seconds (9.8-13.1) 05/13/17 10:17 INR 1.0 (0.9-1.2) 05/13/17 10:17 APTT 30.5 Seconds (25.6-37.1) 05/13/17 10:17
--- NOTE | 2017-05-19 11:00 | CP.PCM.PN ---
Subjective - Date & Time of Evaluation Date of Evaluation: 05/19/17 Time of Evaluation: 10:59 - Subjective Subjective: Patient still with a lot of cough Has no fever WBC is normal. accucheck is better. Objective - Vital Signs/Intake and Output Vital Signs (last 24 hours): Temp Pulse Resp BP Pulse Ox 98.6 F 74 20 133/91 H 90 L 05/19/17 08:01 05/19/17 09:45 05/19/17 08:01 05/19/17 09:45 05/19/17 08:01 - Medications Medications: Current Medications Acetaminophen (Tylenol 325mg Tab) 650 mg PO Q4 PRN PRN Reason: Fever >100.4 F Last Admin: 05/18/17 00:12 Dose: 650 mg Acetaminophen/Butalbital/Caffeine (Fioricet) 1 tab PO Q8H PRN PRN Reason: Migraine headache Last Admin: 05/16/17 06:03 Dose: 1 tab Amlodipine Besylate (Norvasc) 2.5 mg PO DAILY [facility] Last Admin: 05/19/17 09:45 Dose: 2.5 mg Artificial Tears (Artificial Tears) 1 drop OU Q12H [facility] Last Admin: 05/19/17 04:15 Dose: 1 drop Atorvastatin Calcium (Lipitor) 40 mg PO HS [facility] Last Admin: 05/18/17 22:02 Dose: 40 mg Benzonatate (Tessalon Perles) 100 mg PO TID PRN PRN Reason: Cough Last Admin: 05/19/17 05:11 Dose: 100 mg Brimonidine Tartrate (Alphagan 0.2% Opht) 1 drop OU TID [facility] Last Admin: 05/19/17 09:43 Dose: 1 drop Cholecalciferol (Vitamin D) 1,000 iu PO HS [facility] Last Admin: 05/18/17 22:02 Dose: 1,000 iu Ciprofloxacin (Ciloxan 0.3% Ophth Soln) 1 drop OU Q2H [facility] Last Admin: 05/19/17 09:32 Dose: 1 drop Clopidogrel Bisulfate (Plavix) 75 mg PO DAILY [facility] Last Admin: 05/19/17 09:46 Dose: 75 mg Donepezil HCl (Aricept) 10 mg PO HS [facility] Last Admin: 05/18/17 22:02 Dose: 10 mg Enoxaparin Sodium (Lovenox) 40 mg SC DAILY [facility] PRN Reason: Protocol Last Admin: 05/19/17 09:45 Dose: 40 mg Furosemide (Lasix) 40 mg PO DAILY [facility] Last Admin: 05/19/17 09:44 Dose: 40 mg Guaifenesin/Dextromethorphan (Robitussin Dm) 10 ml PO TID [facility] Last Admin: 05/19/17 09:48 Dose: 10 ml Ciprofloxacin (Cipro 400mg/200ml Dsw) 400 mg in 200 mls @ 200 mls/hr IVPB Q12 [facility] PRN Reason: Protocol Last Admin: 05/19/17 09:38 Dose: 200 mls/hr Insulin Lispro Protam/Lispro Human (Humalog Mix 75/25) 10 units SC DIN [facility] Last Admin: 05/18/17 17:27 Dose: 10 units Insulin Lispro Protam/Lispro Human (Humalog Mix 75/25) 50 units SC BRK [facility] Last Admin: 05/19/17 09:41 Dose: Not Given Latanoprost (Xalatan Opht) 1 drop OU HS [facility] Last Admin: 05/18/17 22:02 Dose: 1 drop Levothyroxine Sodium (Synthroid) 75 mcg PO DAILY@0630 [facility] Last Admin: 05/19/17 06:36 Dose: 75 mcg Meclizine HCl (Antivert) 25 mg PO TID PRN PRN Reason: Dizziness Last Admin: 05/19/17 10:20 Dose: 25 mg Memantine (Namenda) 10 mg PO BID [facility] Last Admin: 05/19/17 09:45 Dose: 10 mg Metoprolol Tartrate (Lopressor) 12.5 mg PO DAILY PRN PRN Reason: SBP >139 Last Admin: 05/18/17 09:18 Dose: 12.5 mg Ondansetron HCl (Zofran Inj) 4 mg IVP Q4 PRN PRN Reason: Nausea/Vomiting Pantoprazole Sodium (Protonix Ec Tab) 40 mg PO DAILY [facility] Last Admin: 05/19/17 09:48 Dose: 40 mg Potassium Chloride (K-Dur 20 Meq Er Tab) 20 meq PO DAILY [facility] Last Admin: 05/19/17 09:44 Dose: 20 meq Prednisolone Acetate (Pred Forte 1% Opht Susp) 1 drop OU QID [facility] Last Admin: 05/19/17 09:46 Dose: 1 drop Promethazine HCl/Codeine (Phenergan/Codeine Oral Syrup) 15 ml PO HS PRN PRN Reason: Cough Last Admin: 05/18/17 23:39 Dose: 15 ml Ramipril (Altace) 5 mg PO DAILY [facility] Last Admin: 05/19/17 09:43 Dose: 5 mg Risperidone (Risperdal Tab) 0.25 mg PO Q12 PRN PRN Reason: Agitation Sertraline HCl (Zoloft) 50 mg PO HS [facility] Last Admin: 05/18/17 22:02 Dose: 50 mg Timolol Maleate (Timoptic 0.5% Oph Soln) 1 drop OU BID [facility] Last Admin: 05/19/17 09:33 Dose: 1 drop - Labs Labs: 05/15/17 06:35 05/17/17 08:15 PT 11.8 Seconds (9.8-13.1) 05/13/17 10:17 INR 1.0 (0.9-1.2) 05/13/17 10:17 APTT 30.5 Seconds (25.6-37.1) 05/13/17 10:17
[2017-05-19 11:56] LABS: HEMATOCRIT 31.2 % (34.0-47.0); MEAN CORPUSCULAR HEMOGLOBIN 29.8 pg (27.0-31.0); MEAN CORPUSCULAR HGB CONC 33.1 g/dL (33.0-37.0); RED CELL DISTRIBUTION WIDTH 13.3 % (11.5-14.5); WHITE BLOOD COUNT 4.8 K/uL (4.8-10.8)
[2017-05-19 12:20] LABS: CALCIUM 7.9 mg/dL (8.4-10.2); POTASSIUM 3.7 MMOL/L (3.6-5.0)
--- NOTE | 2017-05-19 13:28 | PQF GENQUE ---
This form is a permanent part of the medical record 05/19/17 Dr. Mcginnis, Admitted with hallucinations. Recent admission for UTI and dehydration. PN 05/16 : Documentation of patient continues to cough a lot, CXR showed more pulmonary congestion. Will increase Lasix . CT CHEST: Mild cardiomegaly. Trace right pleural effusion. Ground-glass and hazy opacities at the lung bases likely represent pulmonary congestion. No radiographic evidence of pneumonia or suspicious mass. Would you please clarify if there is an associated diagnosis or not to go along with the above findings . Clarification of your documentation is requested to better reflect the severity of illness and intensity of treatment of your patient. Indicators present [] Specify: [] [] Specify: [] [] Specify: [] [] Specify: [] Location in the medical record that reflects the above clinical findings: [] Treatment Provided: [] PHYSICIAN'S RESPONSE Based on your medical judgment of the clinical indicators outlined above please clarify the following: [] Practitioner response [] If unable to determine, please check the box, sign and date. Present On Admission (POA) Indicator: [] Present at the time of admission [] Not present at the time of admission [] Clinically Undetermined In responding to this query, please exercise your independent professional judgment. The fact that a question is asked does not imply that any particular answer is desired or expected. Thank you for your clarification on this documentation. If you have any questions please call:extension [phone] * Thank you, Melanie Thomas RN [facility]
[2017-05-19 16:41] VITALS: BP 104/61; PULSE 64; TEMP 98.5; O2SAT 94
[2017-05-19] MEDS ORDERED: Ciprofloxacin 0.3% OPTH SOLN OU SCH (21:00)
--- NOTE | 2017-05-22 16:07 | CP.PCM.DIS ---
Provider - Provider Date of Admission: 05/13/17 12:08 Attending physician: Morris Mcginnis MD Time Spent in preparation of Discharge (in minutes): 35 Diagnosis - Discharge Diagnosis (1) Urinary tract infection Status: Acute (2) Dementia Status: Chronic (3) Hypothyroidism Status: Chronic (4) Diabetes mellitus type 2 in obese Status: Chronic Hospital Course - Lab Results Lab Results: Micro Results 05/17/17 11:00 Blood-Venous Blood Culture - Final NO GROWTH AFTER 5 DAYS 05/17/17 11:00 Blood-Venous Gram Stain - Final TEST NOT PERFORMED 05/17/17 11:00 Blood-Venous Blood Culture - Final NO GROWTH AFTER 5 DAYS 05/17/17 11:00 Blood-Venous Gram Stain - Final TEST NOT PERFORMED 05/13/17 13:22 Blood-Venous Blood Culture - Final NO GROWTH AFTER 5 DAYS 05/13/17 13:22 Blood-Venous Gram Stain - Final TEST NOT PERFORMED 05/13/17 12:57 Blood-Venous Blood Culture - Final NO GROWTH AFTER 5 DAYS 05/13/17 12:57 Blood-Venous Gram Stain - Final TEST NOT PERFORMED 05/13/17 12:08 Urine,Catheterized Urine Culture - Final Pseudomonas Aeruginosa Most Recent Lab Values WBC 4.8 K/uL (4.8-10.8) 05/19/17 11:48 RBC 3.46 Mil/uL (3.80-5.20) L 05/19/17 11:48 Hgb 10.3 g/dL (12.0-16.0) L 05/19/17 11:48 Hct 31.2 % (34.0-47.0) L 05/19/17 11:48 MCV 90.0 fl (81.0-99.0) 05/19/17 11:48 MCH 29.8 pg (27.0-31.0) 05/19/17 11:48 MCHC 33.1 g/dL (33.0-37.0) 05/19/17 11:48 RDW 13.3 % (11.5-14.5) 05/19/17 11:48 Plt Count 210 K/uL (130-400) 05/19/17 11:48 MPV 9.2 fl (7.2-11.7) 05/15/17 06:35 Neut % (Auto) 46.7 % (50.0-75.0) L 05/15/17 06:35 Lymph % (Auto) 41.5 % (20.0-40.0) H 05/15/17 06:35 [place] % (Auto) 8.4 % (0.0-10.0) 05/15/17 06:35 Eos % (Auto) 2.6 % (0.0-4.0) 05/15/17 06:35 Baso % (Auto) 0.8 % (0.0-2.0) 05/15/17 06:35 Neut # 3.1 K/uL (1.8-7.0) 05/15/17 06:35 Lymph # 2.8 K/uL (1.0-4.3) 05/15/17 06:35 [place] # 0.6 K/uL (0.0-0.8) 05/15/17 06:35 Eos # 0.2 K/uL (0.0-0.7) 05/15/17 06:35 Baso # 0.1 K/uL (0.0-0.2) 05/15/17 06:35 PT 11.8 Seconds (9.8-13.1) 05/13/17 10:17 INR 1.0 (0.9-1.2) 05/13/17 10:17 APTT 30.5 Seconds (25.6-37.1) 05/13/17 10:17 Sodium 130 mmol/l (132-148) L 05/19/17 11:48 Potassium 3.7 MMOL/L (3.6-5.0) 05/19/17 11:48 Chloride 90 mmol/L (98-107) L 05/19/17 11:48 Carbon Dioxide 31 mmol/L (22-30) H 05/19/17 11:48 Anion Gap 13 (10-20) 05/19/17 11:48 BUN 31 mg/dl (7-17) H 05/19/17 11:48 Creatinine 1.1 mg/dl (0.7-1.2) 05/19/17 11:48 Est GFR ( Amer) 57 05/19/17 11:48 Est GFR (Non-Af Amer) 47 05/19/17 11:48 POC Glucose (mg/dL) 203 mg/dL (65-110) H 11/27/17 15:34 Random Glucose 162 mg/dL (65-105) H 05/19/17 11:48 Calcium 7.9 mg/dL (8.4-10.2) L 05/19/17 11:48 Total Bilirubin 0.3 mg/dl (0.2-1.3) 05/17/17 08:15 AST 63 U/L (14-36) H D 05/17/17 08:15 ALT 41 U/L (9-52) 05/17/17 08:15 Alkaline Phosphatase 68 U/L (38-126) 05/17/17 08:15 Troponin I < 0.0120 ng/mL (0.00-0.120) 05/13/17 10:17 NT-Pro-B Natriuret Pep 2950 pg/ml (0-900) H 05/17/17 08:15 Total Protein 6.9 G/DL (6.3-8.2) 05/17/17 08:15 Albumin 3.8 g/dL (3.5-5.0) 05/17/17 08:15 Globulin 3.1 gm/dL (2.2-3.9) 05/17/17 08:15 Albumin/Globulin Ratio 1.2 (1.0-2.1) 05/17/17 08:15 Urine Color Yellow (YELLOW) 05/13/17 10:35 Urine Clarity Cloudy (Clear) 05/13/17 10:35 Urine pH 5.0 (5.0-8.0) 05/13/17 10:35 Ur Specific [place] 1.017 (1.003-1.030) 05/13/17 10:35 Urine Protein 100 mg/dL (NEGATIVE) 05/13/17 10:35 Urine Glucose (UA) >=500 mg/dL (Normal) 05/13/17 10:35 Urine Ketones Negative mg/dL (NEGATIVE) 05/13/17 10:35 Urine Blood Negative (NEGATIVE) 05/13/17 10:35 Urine Nitrate Negative (NEGATIVE) 05/13/17 10:35 Urine Bilirubin Negative (NEGATIVE) 05/13/17 10:35 Urine Urobilinogen 0.2-1.0 mg/dL (0.2-1.0) 05/13/17 10:35 Ur Leukocyte Esterase Large Ajay/uL (Negative) 05/13/17 10:35 Urine RBC (Auto) 3 /hpf (0-3) 05/13/17 10:35 Urine WBC Clumps (Auto) Few /hpf (NONE) H 05/13/17 10:35 Urine Microscopic WBC 131 /hpf (0-5) H 05/13/17 10:35 Ur Squamous Epith Cells 2 /hpf (0-5) 05/13/17 10:35 Urine Bacteria Rare (<OCC) 05/13/17 10:35 Urine Opiates Screen Negative (NEGATIVE) 05/13/17 10:35 Urine Methadone Screen Negative (NEGATIVE) 05/13/17 10:35 Ur Barbiturates Screen Positive (NEGATIVE) H 05/13/17 10:35 Ur Phencyclidine Scrn Negative (NEGATIVE) 05/13/17 10:35 Ur Amphetamines Screen Negative (NEGATIVE) 05/13/17 10:35 U Benzodiazepines Scrn Negative (NEGATIVE) 05/13/17 10:35 U Oth Cocaine Metabols Negative (NEGATIVE) 05/13/17 10:35 U Cannabinoids Screen Negative (NEGATIVE) 05/13/17 10:35 Alcohol, Quantitative < 10 mg/dl (0-10) 05/13/17 10:17 - Hospital Course Hospital Course: 81 year old female with recurrent UTI admitted for same. Patient has hx of dementia, recently with AH/VH. She also has cough, etiology unknown. She was treated with IV antibiotics, +urine culture for pseudomonas. D/c to TCU for further treatment with antibiotics and rehabilitation. Discharge Plan - Discharge Medications Prescriptions: Ciprofloxacin IV [Cipro] 400 mg IV Q12 #10 vial - Follow Up Plan Condition: FAIR Disposition: TRANSF TO SNF Instructions: Dehydration (DC), Dehydration (GEN), Urinary Tract Infection in Women (GEN) Referrals: Morris Mcginnis MD [Staff Provider] -
== END 2017-05-19 16:45 | DRG 690 ==
LOC: H.ER 08:48 → H.ERHOLD 12:08 → H.MEDSURG1 20:47
PROVIDERS: ADMIT Family Medicine; ATTEND Family Medicine
DX: N39.0 Urinary tract infection, site not specified (principal); I11.0 Hypertensive heart disease with heart failure; E11.65 Type 2 diabetes mellitus with hyperglycemia; I50.9 Heart failure, unspecified; E11.319 Type 2 diabetes mellitus with unspecified diabetic retinopathy without macular edema; F05 Delirium due to known physiological condition; G30.9 Alzheimer's disease, unspecified; F02.80 Dementia in other diseases classified elsewhere, unspecified severity, without behavioral disturbance, psychotic disturbance, mood disturbance, and anxiety; E86.0 Dehydration; E03.9 Hypothyroidism, unspecified; E66.9 Obesity, unspecified; Z68.30 Body mass index [BMI] 30.0-30.9, adult; E78.00 Pure hypercholesterolemia, unspecified; H26.9 Unspecified cataract; H40.9 Unspecified glaucoma; H54.8 Legal blindness, as defined in USA; N60.02 Solitary cyst of left breast; Z79.899 Other long term (current) drug therapy; Z86.73 Personal history of transient ischemic attack (TIA), and cerebral infarction without residual deficits; Z87.01 Personal history of pneumonia (recurrent); Z87.440 Personal history of urinary (tract) infections; D64.9 Anemia, unspecified; F32.9 Major depressive disorder, single episode, unspecified; F41.9 Anxiety disorder, unspecified; G43.909 Migraine, unspecified, not intractable, without status migrainosus; K29.70 Gastritis, unspecified, without bleeding; R09.89 Other specified symptoms and signs involving the circulatory and respiratory systems; R44.1 Visual hallucinations

== ENCOUNTER 2017-05-19 15:22 | Inpatient (IN) | payer OTHER ==
[2017-05-19 16:59] VITALS: BMI 28.5
[2017-05-19] MEDS ORDERED: Apap-Butalbital-Caffeine 325-50-40mg Tab PO PRN (18:10)
[2017-05-19] MEDS ORDERED: MOXIFLOXACIN HCL EACHEYE SCH (18:15)
[2017-05-19] MEDS ORDERED: Patient's Own Med (Cyclosporine [Restasis] 1 DROP) EACHEYE SCH (18:15)
[2017-05-19] MEDS ORDERED: Promethazine/Cod 6.25mg-10mg/5ml Syr UD PO PRN (18:27)
[2017-05-19] MEDS ORDERED: Patient's Own Med (Ciprofloxacin Iv 400 MG) IV SCH (21:00)
[2017-05-19] MEDS: Latanoprost 0.005% Opht SOUTION OU SCH (22:33)
[2017-05-19] MEDS: Ciprofloxacin 0.3% OPTH SOLN OU SCH (22:34)
[2017-05-19] MEDS: PrednisoLONE 1% OPTH SUSP OU SCH (23:14)
[2017-05-20] MEDS: Ciprofloxacin 400mg/200ml D5W 400 MG/200 ML BAG IVPB SCH ×2 (05:24→18:35)
[2017-05-20] MEDS ORDERED: Levothyroxine 75 MCG TAB PO SCH (07:30)
[2017-05-20] MEDS ORDERED: guaiFENesin DM 200 mg-20 mg/10 ml UD PO SCH (09:00)
[2017-05-20] MEDS: Potassium Chloride 20 mEq ER Tab PO SCH (09:07)
[2017-05-20] MEDS: Enoxaparin 40 mg Syringe SC SCH (09:07)
[2017-05-20] MEDS: Ciprofloxacin 0.3% OPTH SOLN OU SCH (09:11)
[2017-05-20] MEDS: Pantoprazole 40 mg EC Tab PO SCH (09:11)
[2017-05-20] MEDS: Brimonidine 0.2% 50 DROP/5 ML BOTTLE OU SCH ×3 (09:12→16:26)
[2017-05-20] MEDS: PrednisoLONE 1% OPTH SUSP OU SCH ×4 (09:12→21:14)
[2017-05-20] MEDS: Insulin Lispro Mix 75/25 100 units/ml (HumaLog) 10ml SC SCH ×2 (09:16→16:26)
--- NOTE | 2017-05-20 10:40 | CP.PCM.HP ---
History of Present Illness - History of Present Illness History of Present Illness: This is an 81 y/o female admitted for further IV antibiotics and phys therapy. She was admitted initially to medical floor for UTI. during hospitalization she had some cough and was having episodes of visual hallucinations. She was maintained n Cipro for UTI and cough suppressants and did well,. She was discharged to TCU for further PT / rehab. She has a hx of dementia DM 2 blindness both eyes, HTN Hyperlipidemia Hypothyroidism Present on Admission - Present on Admission Any Indicators Present on Admission: No History of DVT/PE: No History of Uncontrolled Diabetes: Yes Urinary Catheter: No Decubitus Ulcer Present: No Review of Systems - Review of Systems Systems not reviewed;Unavailable: Altered Mental Status - Constitutional Constitutional: Anorexia - Respiratory Respiratory: Cough, Dyspnea Past Patient History - Infectious Disease Hx of Infectious Diseases: None - Tetanus Immunizations Tetanus Immunization: Unknown - Past Medical History & Family History Past Medical History?: Yes - Past Social History Smoking Status: Never Smoked - CARDIAC Hx Cardiac Disorders: Yes Hx Hypercholesterolemia: Yes Hx Hypertension: Yes - PULMONARY Hx Respiratory Disorders: Yes Hx Pneumonia: Yes - NEUROLOGICAL Hx Neurological Disorder: Yes Hx Alzheimer's Disease: Yes Hx Dementia: Yes Hx Migraine: Yes Hx Transient Ischemic Attacks (TIA): Yes (2013) - HEENT Hx HEENT Problems: Yes Hx Cataracts: Yes (s/p surgery) Hx Glaucoma: Yes Other/Comment: Hx legally blind. Hx Diabetic Retinopathy - RENAL Hx Chronic Kidney Disease: No - ENDOCRINE/METABOLIC Hx Endocrine Disorders: Yes Hx Hypothyroidism: Yes - HEMATOLOGICAL/ONCOLOGICAL Hx Blood Disorders: Yes Hx Anemia: Yes Hx Human Immunodeficiency Virus (HIV): No - INTEGUMENTARY Hx Dermatological Problems: No - MUSCULOSKELETAL/RHEUMATOLOGICAL Hx Musculoskeletal Disorders: Yes Hx Arthritis: No Hx Falls: Yes Hx Fractures: Yes (rt wrist/elbow) - GASTROINTESTINAL Hx Gastrointestinal Disorders: Yes Hx Diverticulitis: Yes (Diverticulosis) Hx Gastritis: Yes - GENITOURINARY/GYNECOLOGICAL Hx Genitourinary Disorders: Yes Hx Urinary Tract Infection: Yes Other/Comment: left breast cyst - PSYCHIATRIC Hx Psychophysiologic Disorder: Yes Hx Anxiety: Yes Hx Depression: Yes Hx Substance Use: No - SURGICAL HISTORY Hx Surgeries: Yes Hx Coronary Artery Bypass Graft: No Hx Tonsillectomy: Yes (partial thyroidectomy) - ANESTHESIA Hx Anesthesia: Yes Hx Anesthesia Reactions: Yes (HALLUCINATION, CONFUSION) Hx Malignant Hyperthermia: No Has any member of the family had a problem w/ anesthesia?: No Meds Allergies/Adverse Reactions: Allergies Allergy/AdvReac Type Severity Reaction Status Date / Time aspirin Allergy NAUSEA Verified 05/13/17 09:32 Sulfa (Sulfonamide Allergy RASH Verified 05/13/17 09:32 Antibiotics) Iodinated Contrast- Oral and AdvReac VOMITING Verified 05/13/17 09:32 IV Dye metformin AdvReac DIARRHEA Verified 05/13/17 09:32 Physical Exam - Head Exam Head Exam: NORMAL INSPECTION - Eye Exam Eye Exam: Normal appearance - Respiratory Exam Respiratory Exam: Clear to Auscultation Bilateral - Cardiovascular Exam Cardiovascular Exam: REGULAR RHYTHM - GI/Abdominal Exam GI & Abdominal Exam: Normal Bowel Sounds - Neurological Exam Neurological exam: Altered Results - Vital Signs Recent Vital Signs: Last Vital Signs Temp 99.7 F H 05/20/17 07:27 Pulse 80 05/20/17 09:10 Resp 20 05/20/17 07:27 BP 131/61 05/20/17 09:10 Pulse Ox 88 L 05/20/17 07:27 - Labs Labs: Laboratory Results - last 24 hr 05/19/17 05/20/17 20:21 05:12 POC Glucose (mg/dL) 206 H 335 H Assessment & Plan (1) Physical debility Status: Acute (2) Dementia Status: Chronic (3) Diabetes mellitus type 2 in obese Status: Chronic (4) Hypertension Status: Chronic (5) Hallucination Status: Acute (6) Delusion Status: Resolved (7) Urinary tract infection Status: Acute - Assessment and Plan (Free Text) Plan: start PT complete cipro then dc cont meds cont tx dc some meds cont tx cont PT hydrate
[2017-05-20] MEDS ORDERED: Glucagon Recombinant 1 mg Inj IM PRN (12:52)
[2017-05-20] MEDS ORDERED: Dextrose 50% SYRINGE Inj (50 ml) IVP PRN (12:52)
[2017-05-20] MEDS: Insulin Regular 100 units/ml SC SCH ×2 (18:35→21:13)
[2017-05-20] MEDS: Latanoprost 0.005% Opht SOUTION OU SCH (21:15)
[2017-05-21] MEDS: Promethazine/Cod 6.25mg-10mg/5ml Syr UD PO PRN ×2 (00:12→22:04)
[2017-05-21] MEDS: Ciprofloxacin 400mg/200ml D5W 400 MG/200 ML BAG IVPB SCH ×2 (05:22→16:41)
[2017-05-21] MEDS: Levothyroxine 75 MCG TAB PO SCH (05:30)
[2017-05-21] MEDS: Insulin Regular 100 units/ml SC SCH ×4 (06:43→22:07)
[2017-05-21] MEDS: Insulin Lispro Mix 75/25 100 units/ml (HumaLog) 10ml SC SCH ×2 (07:59→17:39)
[2017-05-21] MEDS: Brimonidine 0.2% 50 DROP/5 ML BOTTLE OU SCH ×3 (08:18→16:44)
[2017-05-21] MEDS: PrednisoLONE 1% OPTH SUSP OU SCH ×4 (08:18→22:04)
[2017-05-21] MEDS: Potassium Chloride 20 mEq ER Tab PO SCH (08:38)
[2017-05-21] MEDS: Enoxaparin 40 mg Syringe SC SCH (08:39)
[2017-05-21] MEDS: Pantoprazole 40 mg EC Tab PO SCH (08:40)
[2017-05-21] MEDS: Dextrose 5%/Lactated Ringer's 1,000 ML IV SCH (14:02)
[2017-05-21] MEDS: Latanoprost 0.005% Opht SOUTION OU SCH (21:45)
[2017-05-22] MEDS: Dextrose 5%/Lactated Ringer's 1,000 ML IV SCH (04:00)
[2017-05-22] MEDS: Ciprofloxacin 400mg/200ml D5W 400 MG/200 ML BAG IVPB SCH ×2 (05:27→16:36)
[2017-05-22] MEDS: Levothyroxine 75 MCG TAB PO SCH (05:30)
[2017-05-22] MEDS: Insulin Regular 100 units/ml SC SCH ×4 (07:03→21:52)
[2017-05-22] MEDS: Albuterol-Ipratrop 3 mg / 0.5 (3 ml) UD INH SCH ×4 (08:00→19:51)
[2017-05-22] MEDS: PrednisoLONE 1% OPTH SUSP OU SCH ×4 (08:13→22:07)
[2017-05-22] MEDS: Enoxaparin 40 mg Syringe SC SCH (08:17)
[2017-05-22] MEDS: Pantoprazole 40 mg EC Tab PO SCH (08:18)
[2017-05-22] MEDS: Insulin Lispro Mix 75/25 100 units/ml (HumaLog) 10ml SC SCH (08:23)
[2017-05-22] MEDS: Potassium Chloride 20 mEq ER Tab PO SCH (08:23)
[2017-05-22] MEDS: Brimonidine 0.2% 50 DROP/5 ML BOTTLE OU SCH ×3 (08:42→18:00)
--- NOTE | 2017-05-22 08:44 | RAD ---
HISTORY: cough and congestion COMPARISON: CT chest dated 05/16/2017. FINDINGS: LUNGS: Pulmonary vascular congestion. Left basilar atelectasis. PLEURA: Stable elevation of the right hemidiaphragm. Small left pleural effusion. No pneumothorax apparent. CARDIOVASCULAR: Atherosclerotic aortic calcifications. Cardiomediastinal silhouette stably enlarged. OSSEOUS STRUCTURES: Unchanged. VISUALIZED UPPER ABDOMEN: Normal. OTHER FINDINGS: None. IMPRESSION: Pulmonary vascular congestion. Small left pleural effusion and/or atelectasis.
--- NOTE | 2017-05-22 10:50 | CP.PCM.PN ---
Subjective - Date & Time of Evaluation Date of Evaluation: 05/21/17 Time of Evaluation: 10:00 - Subjective Subjective: Patient continues to have a lot of congestion and cough Has no fever. Has no chest pain Previous Xray showed pulm congestion Objective - Vital Signs/Intake and Output Vital Signs (last 24 hours): Temp Pulse Resp BP Pulse Ox 97.0 F L 81 20 151/68 H 91 L 05/21/17 20:17 05/22/17 08:14 05/21/17 20:17 05/22/17 08:23 05/21/17 20:17 - Medications Medications: Current Medications Acetaminophen (Tylenol 325mg Tab) 650 mg PO Q4 [facility] Acetaminophen/Butalbital/Caffeine (Fioricet) 1 tab PO Q8H PRN PRN Reason: Migraine headache Albuterol/Ipratropium (Duoneb 3 Mg/0.5 Mg (3 Ml) Ud) 3 ml INH RQID [facility] Amlodipine Besylate (Norvasc) 2.5 mg PO DAILY [facility] Last Admin: 05/22/17 08:14 Dose: 2.5 mg Atorvastatin Calcium (Lipitor) 40 mg PO HS [facility] Last Admin: 05/21/17 22:06 Dose: 40 mg Brimonidine Tartrate (Alphagan 0.2% Opht) 1 drop OU TID [facility] Last Admin: 05/22/17 08:42 Dose: 1 drop Cholecalciferol (Vitamin D) 1,000 iu PO HS [facility] Last Admin: 05/21/17 22:06 Dose: 1,000 iu Clopidogrel Bisulfate (Plavix) 75 mg PO DAILY [facility] Last Admin: 05/22/17 08:16 Dose: 75 mg Dextrose (Dextrose 50% Inj) 0 ml IVP STAT PRN; Protocol PRN Reason: Hypoglycemia Protocol Docusate Sodium (Colace) 200 mg PO HS [facility] Last Admin: 05/21/17 22:08 Dose: 200 mg Donepezil HCl (Aricept) 10 mg PO HS [facility] Last Admin: 05/21/17 22:09 Dose: 10 mg Enoxaparin Sodium (Lovenox) 40 mg SC DAILY [facility] PRN Reason: Protocol Last Admin: 05/22/17 08:17 Dose: 40 mg Famotidine (Pepcid) 20 mg PO BID [facility] Last Admin: 05/22/17 08:16 Dose: 20 mg Furosemide (Lasix) 40 mg PO DAILY [facility] Furosemide (Lasix) 20 mg PO DAILY [facility] Glucagon (Glucagen Diagnostic Kit) 0 mg IM STAT PRN; Protocol PRN Reason: Hypoglycemia Protocol Ciprofloxacin (Cipro 400mg/200ml Dsw) 400 mg in 200 mls @ 200 mls/hr IVPB Q12@ 0500,1700 [facility] Last Admin: 05/22/17 05:27 Dose: 200 mls/hr Dextrose/Lactated Ringer's (Dextrose 5%/Lactated Ringer's) 1,000 mls @ 80 mls/ hr IV .[id number] [facility] Stop: 05/22/17 13:45 Last Admin: 05/22/17 04:00 Dose: 80 mls/hr Insulin Human Regular (Humulin R) 0 units SC ACHS [facility] PRN Reason: Protocol Last Admin: 05/22/17 07:03 Dose: 3 units Insulin Lispro Protam/Lispro Human (Humalog Mix 75/25) 10 units SC DIN [facility] Last Admin: 05/21/17 17:39 Dose: 10 units Insulin Lispro Protam/Lispro Human (Humalog Mix 75/25) 50 units SC BRK [facility] Last Admin: 05/22/17 08:23 Dose: 50 units Latanoprost (Xalatan Opht) 1 drop OU HS [facility] Last Admin: 05/21/17 21:45 Dose: 1 drop Levothyroxine Sodium (Synthroid) 75 mcg PO DAILY@0630 [facility] Last Admin: 05/22/17 05:30 Dose: 75 mcg Meclizine HCl (Antivert) 25 mg PO TID PRN PRN Reason: Dizziness Last Admin: 05/20/17 21:12 Dose: 25 mg Memantine (Namenda) 10 mg PO BID [facility] Last Admin: 05/22/17 08:17 Dose: 10 mg Metoprolol Tartrate (Lopressor) 12.5 mg PO DAILY PRN PRN Reason: SBP >139 Last Admin: 05/21/17 08:39 Dose: 12.5 mg Ondansetron HCl (Zofran Inj) 4 mg IVP Q4 PRN PRN Reason: Nausea/Vomiting Pantoprazole Sodium (Protonix Ec Tab) 40 mg PO DAILY [facility] Last Admin: 05/22/17 08:18 Dose: 40 mg Potassium Chloride (K-Dur 20 Meq Er Tab) 20 meq PO DAILY [facility] Last Admin: 05/22/17 08:23 Dose: 20 meq Prednisolone Acetate (Pred Forte 1% Opht Susp) 1 drop OU QID [facility] Last Admin: 05/22/17 08:13 Dose: 1 drop Promethazine HCl/Codeine (Phenergan/Codeine Oral Syrup) 10 ml PO HS PRN PRN Reason: Cough Last Admin: 05/21/17 22:04 Dose: 10 ml Ramipril (Altace) 5 mg PO DAILY [facility] Last Admin: 05/22/17 08:23 Dose: 5 mg Risperidone (Risperdal Tab) 0.25 mg PO Q12 PRN PRN Reason: Agitation Last Admin: 05/20/17 21:16 Dose: 0.25 mg Sertraline HCl (Zoloft) 50 mg PO HS [facility] Last Admin: 05/21/17 22:09 Dose: 50 mg Timolol Maleate (Timoptic 0.5% Ophth Soln) 1 drop OU BID [facility] Last Admin: 05/22/17 08:20 Dose: 1 drop - Eye Exam Eye Exam: Normal appearance - ENT Exam ENT Exam: Mucous Membranes Moist - Respiratory Exam Respiratory Exam: Decreased Breath Sounds, Rales - Cardiovascular Exam Cardiovascular Exam: REGULAR RHYTHM - GI/Abdominal Exam GI & Abdominal Exam: Normal Bowel Sounds - Neurological Exam Neurological Exam: Altered Assessment and Plan (1) Physical debility Status: Acute (2) Dementia Status: Chronic (3) 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 - Assessment and Plan (Free Text) Plan: conr meds cont tx CXR lasix
--- NOTE | 2017-05-22 10:54 | CP.PCM.PN ---
Subjective - Date & Time of Evaluation Date of Evaluation: 05/22/17 Time of Evaluation: 10:52 - Subjective Subjective: patient is doing a lot better but still coughs a lot Has no fever probnp not elevated CXR showed pulm congestion On Lasix 40 mg daily Objective - Vital Signs/Intake and Output Vital Signs (last 24 hours): Temp Pulse Resp BP Pulse Ox 97.0 F L 81 20 151/68 H 91 L 05/21/17 20:17 05/22/17 08:14 05/21/17 20:17 05/22/17 08:23 05/21/17 20:17 - Medications Medications: Current Medications Acetaminophen (Tylenol 325mg Tab) 650 mg PO Q4 [facility] Acetaminophen/Butalbital/Caffeine (Fioricet) 1 tab PO Q8H PRN PRN Reason: Migraine headache Albuterol/Ipratropium (Duoneb 3 Mg/0.5 Mg (3 Ml) Ud) 3 ml INH RQID [facility] Amlodipine Besylate (Norvasc) 2.5 mg PO DAILY [facility] Last Admin: 05/22/17 08:14 Dose: 2.5 mg Atorvastatin Calcium (Lipitor) 40 mg PO HS [facility] Last Admin: 05/21/17 22:06 Dose: 40 mg Brimonidine Tartrate (Alphagan 0.2% Opht) 1 drop OU TID [facility] Last Admin: 05/22/17 08:42 Dose: 1 drop Cholecalciferol (Vitamin D) 1,000 iu PO HS [facility] Last Admin: 05/21/17 22:06 Dose: 1,000 iu Clopidogrel Bisulfate (Plavix) 75 mg PO DAILY [facility] Last Admin: 05/22/17 08:16 Dose: 75 mg Dextrose (Dextrose 50% Inj) 0 ml IVP STAT PRN; Protocol PRN Reason: Hypoglycemia Protocol Docusate Sodium (Colace) 200 mg PO HS [facility] Last Admin: 05/21/17 22:08 Dose: 200 mg Donepezil HCl (Aricept) 10 mg PO HS [facility] Last Admin: 05/21/17 22:09 Dose: 10 mg Enoxaparin Sodium (Lovenox) 40 mg SC DAILY [facility] PRN Reason: Protocol Last Admin: 05/22/17 08:17 Dose: 40 mg Famotidine (Pepcid) 20 mg PO BID [facility] Last Admin: 05/22/17 08:16 Dose: 20 mg Furosemide (Lasix) 40 mg PO DAILY [facility] Furosemide (Lasix) 20 mg PO DAILY [facility] Glucagon (Glucagen Diagnostic Kit) 0 mg IM STAT PRN; Protocol PRN Reason: Hypoglycemia Protocol Ciprofloxacin (Cipro 400mg/200ml Dsw) 400 mg in 200 mls @ 200 mls/hr IVPB Q12@ 0500,1700 [facility] Last Admin: 05/22/17 05:27 Dose: 200 mls/hr Dextrose/Lactated Ringer's (Dextrose 5%/Lactated Ringer's) 1,000 mls @ 80 mls/ hr IV .[id number] [facility] Stop: 05/22/17 13:45 Last Admin: 05/22/17 04:00 Dose: 80 mls/hr Insulin Human Regular (Humulin R) 0 units SC ACHS [facility] PRN Reason: Protocol Last Admin: 05/22/17 07:03 Dose: 3 units Insulin Lispro Protam/Lispro Human (Humalog Mix 75/25) 10 units SC DIN [facility] Last Admin: 05/21/17 17:39 Dose: 10 units Insulin Lispro Protam/Lispro Human (Humalog Mix 75/25) 50 units SC BRK [facility] Last Admin: 05/22/17 08:23 Dose: 50 units Latanoprost (Xalatan Opht) 1 drop OU HS [facility] Last Admin: 05/21/17 21:45 Dose: 1 drop Levothyroxine Sodium (Synthroid) 75 mcg PO DAILY@0630 [facility] Last Admin: 05/22/17 05:30 Dose: 75 mcg Meclizine HCl (Antivert) 25 mg PO TID PRN PRN Reason: Dizziness Last Admin: 05/20/17 21:12 Dose: 25 mg Memantine (Namenda) 10 mg PO BID [facility] Last Admin: 05/22/17 08:17 Dose: 10 mg Metoprolol Tartrate (Lopressor) 12.5 mg PO DAILY PRN PRN Reason: SBP >139 Last Admin: 05/21/17 08:39 Dose: 12.5 mg Ondansetron HCl (Zofran Inj) 4 mg IVP Q4 PRN PRN Reason: Nausea/Vomiting Pantoprazole Sodium (Protonix Ec Tab) 40 mg PO DAILY [facility] Last Admin: 05/22/17 08:18 Dose: 40 mg Potassium Chloride (K-Dur 20 Meq Er Tab) 20 meq PO DAILY [facility] Last Admin: 05/22/17 08:23 Dose: 20 meq Prednisolone Acetate (Pred Forte 1% Opht Susp) 1 drop OU QID [facility] Last Admin: 05/22/17 08:13 Dose: 1 drop Promethazine HCl/Codeine (Phenergan/Codeine Oral Syrup) 10 ml PO HS PRN PRN Reason: Cough Last Admin: 05/21/17 22:04 Dose: 10 ml Ramipril (Altace) 5 mg PO DAILY [facility] Last Admin: 05/22/17 08:23 Dose: 5 mg Risperidone (Risperdal Tab) 0.25 mg PO Q12 PRN PRN Reason: Agitation Last Admin: 05/20/17 21:16 Dose: 0.25 mg Sertraline HCl (Zoloft) 50 mg PO HS [facility] Last Admin: 05/21/17 22:09 Dose: 50 mg Timolol Maleate (Timoptic 0.5% Ophth Soln) 1 drop OU BID [facility] Last Admin: 05/22/17 08:20 Dose: 1 drop - Head Exam Head Exam: NORMAL INSPECTION - Eye Exam Eye Exam: Normal appearance - Respiratory Exam Respiratory Exam: Decreased Breath Sounds, Rales - Cardiovascular Exam Cardiovascular Exam: REGULAR RHYTHM - GI/Abdominal Exam GI & Abdominal Exam: Normal Bowel Sounds Assessment and Plan (1) Physical debility Status: Acute (2) Dementia Status: Chronic (3) 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 - Assessment and Plan (Free Text) Plan: cont meds increase Lasix to 40 am and 20 mg pm consult with Dr Gleason cont meds prom DM and codein [facility]
[2017-05-22] MEDS: guaiFENesin 600 mg ER Tab PO SCH ×2 (12:14→22:06)
[2017-05-22] MEDS: Promethazine DM 12.5 mg-30 mg/10 ml Syrup PO PRN (12:14)
[2017-05-22] MEDS: Ciprofloxacin 0.3% OPTH SOLN OU SCH (22:03)
--- NOTE | 2017-05-22 22:08 | CP.PCM.CON ---
History of Present Illness - History of Present Illness History of Present Illness: Acute Resp Insuff CHF / Tracheobronchitis. Chronic Medical Conditions Never Smoker. No ETOH. Allergies to PCN. S/ Breathing better compared to when she came it. O: Afebrile, VSS Head: Neg Adeno, Pos KYLE, Neg JVD Heart: RRR, ns1s2 Lungs: Crackles at bases. Abdo, Soft, NT Pos BS. Ext: No C,C, 2 + Edema LE Neuro: A * O times 3. Non Focal. X-ray c/w Pulmonary venous congestion. ? Infiltrate vs Atelectasis in L Base. Cont Supp O2, maintain O2 Sat > 90% Cont IV Abx, monitor WBC#, temp curve and cultures. Cont Nebulized treatments. Cont maintain neg balance with IV lasix. Cardio optimization. PUD and DVT px. Signing out of case; please reconsult prn. Past Patient History - Infectious Disease Hx of Infectious Diseases: None - Tetanus Immunizations Tetanus Immunization: Unknown - Past Medical History & Family History Past Medical History?: Yes - Past Social History Smoking Status: Never Smoked - CARDIAC Hx Cardiac Disorders: Yes Hx Hypercholesterolemia: Yes Hx Hypertension: Yes - PULMONARY Hx Respiratory Disorders: Yes Hx Pneumonia: Yes - NEUROLOGICAL Hx Neurological Disorder: Yes Hx Alzheimer's Disease: Yes Hx Dementia: Yes Hx Migraine: Yes Hx Transient Ischemic Attacks (TIA): Yes (2013) - HEENT Hx HEENT Problems: Yes Hx Cataracts: Yes (s/p surgery) Hx Glaucoma: Yes Other/Comment: Hx legally blind. Hx Diabetic Retinopathy - RENAL Hx Chronic Kidney Disease: No - ENDOCRINE/METABOLIC Hx Endocrine Disorders: Yes Hx Hypothyroidism: Yes - HEMATOLOGICAL/ONCOLOGICAL Hx Blood Disorders: Yes Hx Anemia: Yes Hx Human Immunodeficiency Virus (HIV): No - INTEGUMENTARY Hx Dermatological Problems: No - MUSCULOSKELETAL/RHEUMATOLOGICAL Hx Musculoskeletal Disorders: Yes Hx Arthritis: No Hx Falls: Yes Hx Fractures: Yes (rt wrist/elbow) - GASTROINTESTINAL Hx Gastrointestinal Disorders: Yes Hx Diverticulitis: Yes (Diverticulosis) Hx Gastritis: Yes - GENITOURINARY/GYNECOLOGICAL Hx Genitourinary Disorders: Yes Hx Urinary Tract Infection: Yes Other/Comment: left breast cyst - PSYCHIATRIC Hx Psychophysiologic Disorder: Yes Hx Anxiety: Yes Hx Depression: Yes Hx Substance Use: No - SURGICAL HISTORY Hx Surgeries: Yes Hx Coronary Artery Bypass Graft: No Hx Tonsillectomy: Yes (partial thyroidectomy) - ANESTHESIA Hx Anesthesia: Yes Hx Anesthesia Reactions: Yes (HALLUCINATION, CONFUSION) Hx Malignant Hyperthermia: No Has any member of the family had a problem w/ anesthesia?: No Meds Allergies/Adverse Reactions: Allergies Allergy/AdvReac Type Severity Reaction Status Date / Time aspirin Allergy NAUSEA Verified 05/13/17 09:32 Sulfa (Sulfonamide Allergy RASH Verified 05/13/17 09:32 Antibiotics) Iodinated Contrast- Oral and AdvReac VOMITING Verified 05/13/17 09:32 IV Dye metformin AdvReac DIARRHEA Verified 05/13/17 09:32 - Medications Medications: Current Medications Acetaminophen (Tylenol 325mg Tab) 650 mg PO Q4 [facility] Last Admin: 05/22/17 16:31 Dose: Not Given Acetaminophen/Butalbital/Caffeine (Fioricet) 1 tab PO Q8H PRN PRN Reason: Migraine headache Albuterol/Ipratropium (Duoneb 3 Mg/0.5 Mg (3 Ml) Ud) 3 ml INH RQID [facility] Last Admin: 05/22/17 19:51 Dose: 3 ml Amlodipine Besylate (Norvasc) 2.5 mg PO DAILY [facility] Last Admin: 05/22/17 08:14 Dose: 2.5 mg Atorvastatin Calcium (Lipitor) 40 mg PO HS [facility] Last Admin: 05/21/17 22:06 Dose: 40 mg Brimonidine Tartrate (Alphagan 0.2% Opht) 1 drop OU TID [facility] Last Admin: 05/22/17 18:00 Dose: 1 drop Cholecalciferol (Vitamin D) 1,000 iu PO HS [facility] Last Admin: 05/21/17 22:06 Dose: 1,000 iu Ciprofloxacin (Ciloxan 0.3% Ophth Soln) 1 drop OU Q2 [facility] Last Admin: 05/22/17 22:03 Dose: 1 drop Clopidogrel Bisulfate (Plavix) 75 mg PO DAILY [facility] Last Admin: 05/22/17 08:16 Dose: 75 mg Dextrose (Dextrose 50% Inj) 0 ml IVP STAT PRN; Protocol PRN Reason: Hypoglycemia Protocol Docusate Sodium (Colace) 200 mg PO HS [facility] Last Admin: 05/22/17 22:04 Dose: 200 mg Donepezil HCl (Aricept) 10 mg PO HS [facility] Last Admin: 05/22/17 22:03 Dose: 10 mg Enoxaparin Sodium (Lovenox) 40 mg SC DAILY [facility] PRN Reason: Protocol Last Admin: 05/22/17 08:17 Dose: 40 mg Famotidine (Pepcid) 20 mg PO BID [facility] Last Admin: 05/22/17 16:37 Dose: 20 mg Furosemide (Lasix) 40 mg PO DAILY [facility] Last Admin: 05/22/17 12:16 Dose: 40 mg Glucagon (Glucagen Diagnostic Kit) 0 mg IM STAT PRN; Protocol PRN Reason: Hypoglycemia Protocol Guaifenesin (Mucinex La) 600 mg PO Q12 [facility] Last Admin: 05/22/17 12:14 Dose: 600 mg Ciprofloxacin (Cipro 400mg/200ml Dsw) 400 mg in 200 mls @ 200 mls/hr IVPB Q12@ 0500,1700 [facility] Last Admin: 05/22/17 16:36 Dose: 200 mls/hr Insulin Human Regular (Humulin R) 0 units SC ACHS [facility] PRN Reason: Protocol Last Admin: 05/22/17 21:52 Dose: Not Given Latanoprost (Xalatan Opht) 1 drop OU HS [facility] Last Admin: 05/21/17 21:45 Dose: 1 drop Levothyroxine Sodium (Synthroid) 75 mcg PO DAILY@0630 [facility] Last Admin: 05/22/17 05:30 Dose: 75 mcg Meclizine HCl (Antivert) 25 mg PO TID PRN PRN Reason: Dizziness Last Admin: 05/20/17 21:12 Dose: 25 mg Memantine (Namenda) 10 mg PO BID [facility] Last Admin: 05/22/17 16:33 Dose: 10 mg Metoprolol Tartrate (Lopressor) 12.5 mg PO DAILY PRN PRN Reason: SBP >139 Last Admin: 05/21/17 08:39 Dose: 12.5 mg Ondansetron HCl (Zofran Inj) 4 mg IVP Q4 PRN PRN Reason: Nausea/Vomiting Pantoprazole Sodium (Protonix Ec Tab) 40 mg PO DAILY [facility] Last Admin: 05/22/17 08:18 Dose: 40 mg Potassium Chloride (K-Dur 20 Meq Er Tab) 20 meq PO DAILY [facility] Last Admin: 05/22/17 08:23 Dose: 20 meq Prednisolone Acetate (Pred Forte 1% Opht Susp) 1 drop OU QID [facility] Last Admin: 05/22/17 16:31 Dose: 1 drop Promethazine HCl/Codeine (Phenergan/Codeine Oral Syrup) 10 ml PO HS PRN PRN Reason: Cough Last Admin: 05/21/17 22:04 Dose: 10 ml Promethazine HCl/Dextromethorphan (Phenergan Dm Syrup) 10 ml PO Q8 PRN PRN Reason: Cough Last Admin: 05/22/17 12:14 Dose: 10 ml Ramipril (Altace) 5 mg PO DAILY [facility] Last Admin: 05/22/17 08:23 Dose: 5 mg Risperidone (Risperdal Tab) 0.25 mg PO Q12 PRN PRN Reason: Agitation Last Admin: 05/20/17 21:16 Dose: 0.25 mg Sertraline HCl (Zoloft) 50 mg PO HS [facility] Last Admin: 05/21/17 22:09 Dose: 50 mg Timolol Maleate (Timoptic 0.5% Oph Soln) 1 drop OU BID [facility] Last Admin: 05/22/17 16:36 Dose: 1 drop Results - Vital Signs Recent Vital Signs: Last Vital Signs Temp 98.2 F 05/22/17 17:00 Pulse 66 05/22/17 17:00 Resp 20 05/22/17 17:00 BP 109/51 L 05/22/17 17:00 Pulse Ox 98 05/22/17 17:00 - Labs Labs: Laboratory Results - last 24 hr 05/22/17 05/22/17 05/22/17 05:17 08:06 11:19 POC Glucose (mg/dL) 225 H 200 H NT-Pro-B Natriuret Pep 901 H 05/22/17 05/22/17 05/22/17 16:17 18:13 21:35 POC Glucose (mg/dL) 72 160 H 129 H NT-Pro-B Natriuret Pep
[2017-05-22] MEDS: Latanoprost 0.005% Opht SOUTION OU SCH (22:12)
[2017-05-22] MEDS: Promethazine/Cod 6.25mg-10mg/5ml Syr UD PO PRN (23:00)
[2017-05-23] MEDS: Ciprofloxacin 0.3% OPTH SOLN OU SCH ×12 (00:05→22:01)
[2017-05-23] MEDS: Ciprofloxacin 400mg/200ml D5W 400 MG/200 ML BAG IVPB SCH ×2 (04:33→16:50)
[2017-05-23] MEDS: Levothyroxine 75 MCG TAB PO SCH (06:25)
[2017-05-23] MEDS: Insulin Regular 100 units/ml SC SCH ×4 (06:45→22:03)
[2017-05-23] MEDS: Albuterol-Ipratrop 3 mg / 0.5 (3 ml) UD INH SCH ×4 (07:52→19:42)
[2017-05-23] MEDS: PrednisoLONE 1% OPTH SUSP OU SCH ×4 (08:20→22:05)
[2017-05-23] MEDS: Brimonidine 0.2% 50 DROP/5 ML BOTTLE OU SCH ×3 (08:21→16:50)
[2017-05-23] MEDS: Enoxaparin 40 mg Syringe SC SCH (08:22)
[2017-05-23] MEDS: Potassium Chloride 20 mEq ER Tab PO SCH (08:28)
[2017-05-23] MEDS: guaiFENesin 600 mg ER Tab PO SCH ×2 (08:29→22:05)
[2017-05-23] MEDS: Pantoprazole 40 mg EC Tab PO SCH (08:30)
[2017-05-23] MEDS: Promethazine DM 12.5 mg-30 mg/10 ml Syrup PO PRN (09:19)
--- NOTE | 2017-05-23 11:06 | CP.PCM.PN ---
Subjective - Date & Time of Evaluation Date of Evaluation: 05/23/17 Time of Evaluation: 11:04 - Subjective Subjective: Patient has less cough Has poor intake Has no fever CXR showed pulm congestion Objective - Vital Signs/Intake and Output Vital Signs (last 24 hours): Temp Pulse Resp BP Pulse Ox 98.2 F 69 20 175/74 H 98 05/22/17 17:00 05/23/17 08:29 05/22/17 17:00 05/23/17 08:29 05/22/17 17:00 - Medications Medications: Current Medications Acetaminophen (Tylenol 325mg Tab) 650 mg PO Q4 [facility] Last Admin: 05/23/17 08:31 Dose: 650 mg Acetaminophen/Butalbital/Caffeine (Fioricet) 1 tab PO Q8H PRN PRN Reason: Migraine headache Albuterol/Ipratropium (Duoneb 3 Mg/0.5 Mg (3 Ml) Ud) 3 ml INH RQID [facility] Last Admin: 05/23/17 07:52 Dose: 3 ml Amlodipine Besylate (Norvasc) 2.5 mg PO DAILY [facility] Last Admin: 05/23/17 08:29 Dose: 2.5 mg Atorvastatin Calcium (Lipitor) 40 mg PO HS [facility] Last Admin: 05/22/17 22:05 Dose: 40 mg Brimonidine Tartrate (Alphagan 0.2% Opht) 1 drop OU TID [facility] Last Admin: 05/23/17 08:21 Dose: 1 drop Cholecalciferol (Vitamin D) 1,000 iu PO HS [facility] Last Admin: 05/22/17 22:12 Dose: 1,000 iu Ciprofloxacin (Ciloxan 0.3% Ophth Soln) 1 drop OU Q2 [facility] Last Admin: 05/23/17 09:15 Dose: 1 drop Clopidogrel Bisulfate (Plavix) 75 mg PO DAILY [facility] Last Admin: 05/23/17 08:30 Dose: 75 mg Dextrose (Dextrose 50% Inj) 0 ml IVP STAT PRN; Protocol PRN Reason: Hypoglycemia Protocol Docusate Sodium (Colace) 200 mg PO HS [facility] Last Admin: 05/22/17 22:04 Dose: 200 mg Donepezil HCl (Aricept) 10 mg PO HS [facility] Last Admin: 05/22/17 22:03 Dose: 10 mg Enoxaparin Sodium (Lovenox) 40 mg SC DAILY [facility] PRN Reason: Protocol Last Admin: 05/23/17 08:22 Dose: 40 mg Famotidine (Pepcid) 20 mg PO BID [facility] Last Admin: 05/23/17 08:30 Dose: 20 mg Furosemide (Lasix) 40 mg PO DAILY [facility] Last Admin: 05/23/17 08:29 Dose: 40 mg Glucagon (Glucagen Diagnostic Kit) 0 mg IM STAT PRN; Protocol PRN Reason: Hypoglycemia Protocol Guaifenesin (Mucinex La) 600 mg PO Q12 [facility] Last Admin: 05/23/17 08:29 Dose: 600 mg Ciprofloxacin (Cipro 400mg/200ml Dsw) 400 mg in 200 mls @ 200 mls/hr IVPB Q12@ 0500,1700 [facility] Last Admin: 05/23/17 04:33 Dose: 200 mls/hr Insulin Human Regular (Humulin R) 0 units SC ACHS [facility] PRN Reason: Protocol Last Admin: 05/23/17 06:45 Dose: 2 units Lactulose (Enulose) 20 gm PO DAILY PRN PRN Reason: Constipation Latanoprost (Xalatan Opht) 1 drop OU HS [facility] Last Admin: 05/22/17 22:12 Dose: 1 drop Levothyroxine Sodium (Synthroid) 75 mcg PO DAILY@0630 [facility] Last Admin: 05/23/17 06:25 Dose: 75 mcg Meclizine HCl (Antivert) 25 mg PO TID PRN PRN Reason: Dizziness Last Admin: 05/20/17 21:12 Dose: 25 mg Memantine (Namenda) 10 mg PO BID [facility] Last Admin: 05/23/17 08:29 Dose: 10 mg Metoprolol Tartrate (Lopressor) 12.5 mg PO DAILY PRN PRN Reason: SBP >139 Last Admin: 05/22/17 22:05 Dose: 12.5 mg Ondansetron HCl (Zofran Inj) 4 mg IVP Q4 PRN PRN Reason: Nausea/Vomiting Pantoprazole Sodium (Protonix Ec Tab) 40 mg PO DAILY [facility] Last Admin: 05/23/17 08:30 Dose: 40 mg Potassium Chloride (K-Dur 20 Meq Er Tab) 20 meq PO DAILY [facility] Last Admin: 05/23/17 08:28 Dose: 20 meq Prednisolone Acetate (Pred Forte 1% Opht Susp) 1 drop OU QID [facility] Last Admin: 05/23/17 08:20 Dose: 1 drop Promethazine HCl/Codeine (Phenergan/Codeine Oral Syrup) 10 ml PO HS PRN PRN Reason: Cough Last Admin: 05/22/17 23:00 Dose: 10 ml Promethazine HCl/Dextromethorphan (Phenergan Dm Syrup) 10 ml PO Q8 PRN PRN Reason: Cough Last Admin: 05/23/17 09:19 Dose: 10 ml Ramipril (Altace) 5 mg PO DAILY [facility] Last Admin: 05/23/17 08:28 Dose: 5 mg Risperidone (Risperdal Tab) 0.25 mg PO Q12 PRN PRN Reason: Agitation Last Admin: 05/20/17 21:16 Dose: 0.25 mg Sertraline HCl (Zoloft) 50 mg PO HS [facility] Last Admin: 05/22/17 22:44 Dose: 50 mg Timolol Maleate (Timoptic 0.5% Oph Soln) 1 drop OU BID [facility] Last Admin: 05/23/17 08:21 Dose: 1 drop - Head Exam Head Exam: NORMAL INSPECTION - Eye Exam Eye Exam: Normal appearance - Respiratory Exam Respiratory Exam: Decreased Breath Sounds, Rales - Cardiovascular Exam Cardiovascular Exam: REGULAR RHYTHM - GI/Abdominal Exam GI & Abdominal Exam: Normal Bowel Sounds - Neurological Exam Neurological Exam: Awake, Oriented x3 Assessment and Plan (1) Physical debility Status: Acute (2) Dementia Status: Chronic (3) 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
[2017-05-23] MEDS: Latanoprost 0.005% Opht SOUTION OU SCH (22:08)
[2017-05-23] MEDS: Promethazine/Cod 6.25mg-10mg/5ml Syr UD PO PRN (22:25)
[2017-05-24] MEDS: Ciprofloxacin 0.3% OPTH SOLN OU SCH ×12 (00:05→21:15)
[2017-05-24] MEDS: Ciprofloxacin 400mg/200ml D5W 400 MG/200 ML BAG IVPB SCH ×2 (04:37→16:24)
[2017-05-24] MEDS: Levothyroxine 75 MCG TAB PO SCH (05:49)
[2017-05-24] MEDS: Promethazine DM 12.5 mg-30 mg/10 ml Syrup PO PRN ×3 (06:34→21:37)
[2017-05-24] MEDS: Insulin Regular 100 units/ml SC SCH ×4 (06:46→21:32)
[2017-05-24] MEDS: Brimonidine 0.2% 50 DROP/5 ML BOTTLE OU SCH ×3 (08:15→16:29)
[2017-05-24] MEDS: Pantoprazole 40 mg EC Tab PO SCH (08:16)
[2017-05-24] MEDS: Potassium Chloride 20 mEq ER Tab PO SCH (08:16)
[2017-05-24] MEDS: guaiFENesin 600 mg ER Tab PO SCH ×2 (08:18→20:04)
[2017-05-24] MEDS: Enoxaparin 40 mg Syringe SC SCH (08:18)
[2017-05-24] MEDS: PrednisoLONE 1% OPTH SUSP OU SCH ×4 (08:25→21:16)
[2017-05-24] MEDS: Albuterol-Ipratrop 3 mg / 0.5 (3 ml) UD INH SCH ×4 (08:33→19:34)
[2017-05-24] MEDS: Latanoprost 0.005% Opht SOUTION OU SCH (21:22)
[2017-05-25] MEDS: Ciprofloxacin 0.3% OPTH SOLN OU SCH ×10 (00:34→21:52)
[2017-05-25] MEDS: Ciprofloxacin 400mg/200ml D5W 400 MG/200 ML BAG IVPB SCH ×2 (04:48→16:40)
[2017-05-25] MEDS: Levothyroxine 75 MCG TAB PO SCH (05:59)
[2017-05-25] MEDS: Insulin Regular 100 units/ml SC SCH ×4 (06:48→21:53)
[2017-05-25] MEDS: Albuterol-Ipratrop 3 mg / 0.5 (3 ml) UD INH SCH ×4 (07:29→19:26)
[2017-05-25] MEDS: Enoxaparin 40 mg Syringe SC SCH (08:33)
[2017-05-25] MEDS: guaiFENesin 600 mg ER Tab PO SCH ×2 (08:33→21:55)
[2017-05-25] MEDS: Pantoprazole 40 mg EC Tab PO SCH (08:34)
[2017-05-25] MEDS: Potassium Chloride 20 mEq ER Tab PO SCH (08:34)
[2017-05-25] MEDS: PrednisoLONE 1% OPTH SUSP OU SCH ×4 (08:37→21:07)
[2017-05-25] MEDS: Brimonidine 0.2% 50 DROP/5 ML BOTTLE OU SCH ×3 (08:37→16:41)
--- NOTE | 2017-05-25 14:03 | CP.PCM.PN ---
Subjective - Date & Time of Evaluation Date of Evaluation: 05/24/17 Time of Evaluation: 10:00 - Subjective Subjective: Patient still with a lot of coughing. Objective - Vital Signs/Intake and Output Vital Signs (last 24 hours): Temp Pulse Resp BP Pulse Ox 97.7 F 103 H 20 145/68 89 L 05/24/17 19:14 05/25/17 08:36 05/24/17 19:14 05/25/17 08:36 05/24/17 19:14 - Medications Medications: Current Medications Acetaminophen (Tylenol 325mg Tab) 650 mg PO Q4 [facility] Last Admin: 05/25/17 12:37 Dose: Not Given Acetaminophen/Butalbital/Caffeine (Fioricet) 1 tab PO Q8H PRN PRN Reason: Migraine headache Last Admin: 05/23/17 11:39 Dose: 1 tab Albuterol/Ipratropium (Duoneb 3 Mg/0.5 Mg (3 Ml) Ud) 3 ml INH RQID [facility] Last Admin: 05/25/17 11:08 Dose: 3 ml Amlodipine Besylate (Norvasc) 2.5 mg PO DAILY [facility] Last Admin: 05/25/17 08:36 Dose: 2.5 mg Atorvastatin Calcium (Lipitor) 40 mg PO HS [facility] Last Admin: 05/24/17 21:16 Dose: 40 mg Brimonidine Tartrate (Alphagan 0.2% Opht) 1 drop OU TID [facility] Last Admin: 05/25/17 12:36 Dose: 1 drop Cholecalciferol (Vitamin D) 1,000 iu PO HS [facility] Last Admin: 05/24/17 21:15 Dose: 1,000 iu Ciprofloxacin (Ciloxan 0.3% Ophth Soln) 1 drop OU Q2 [facility] Last Admin: 05/25/17 12:36 Dose: 1 drop Clopidogrel Bisulfate (Plavix) 75 mg PO DAILY [facility] Last Admin: 05/25/17 08:35 Dose: 75 mg Dextrose (Dextrose 50% Inj) 0 ml IVP STAT PRN; Protocol PRN Reason: Hypoglycemia Protocol Docusate Sodium (Colace) 200 mg PO HS [facility] Last Admin: 05/24/17 21:34 Dose: Not Given Donepezil HCl (Aricept) 10 mg PO HS [facility] Last Admin: 05/24/17 21:16 Dose: 10 mg Enoxaparin Sodium (Lovenox) 40 mg SC DAILY [facility] PRN Reason: Protocol Last Admin: 05/25/17 08:33 Dose: 40 mg Famotidine (Pepcid) 20 mg PO BID [facility] Last Admin: 05/25/17 08:36 Dose: 20 mg Furosemide (Lasix) 40 mg PO DAILY [facility] Last Admin: 05/25/17 08:33 Dose: 40 mg Glucagon (Glucagen Diagnostic Kit) 0 mg IM STAT PRN; Protocol PRN Reason: Hypoglycemia Protocol Guaifenesin (Mucinex La) 600 mg PO Q12 [facility] Last Admin: 05/25/17 08:33 Dose: 600 mg Ciprofloxacin (Cipro 400mg/200ml Dsw) 400 mg in 200 mls @ 200 mls/hr IVPB Q12@ 0500,1700 [facility] Last Admin: 05/25/17 04:48 Dose: 200 mls/hr Insulin Human Regular (Humulin R) 0 units SC ACHS [facility] PRN Reason: Protocol Last Admin: 05/25/17 12:37 Dose: Not Given Lactulose (Enulose) 20 gm PO DAILY PRN PRN Reason: Constipation Last Admin: 05/23/17 17:41 Dose: 20 gm Latanoprost (Xalatan Opht) 1 drop OU HS [facility] Last Admin: 05/24/17 21:22 Dose: 1 drop Levothyroxine Sodium (Synthroid) 75 mcg PO DAILY@0630 [facility] Last Admin: 05/25/17 05:59 Dose: 75 mcg Meclizine HCl (Antivert) 25 mg PO TID PRN PRN Reason: Dizziness Last Admin: 05/23/17 11:40 Dose: 25 mg Memantine (Namenda) 10 mg PO BID [facility] Last Admin: 05/25/17 08:35 Dose: 10 mg Metoprolol Tartrate (Lopressor) 12.5 mg PO DAILY PRN PRN Reason: SBP >139 Last Admin: 05/23/17 22:04 Dose: 12.5 mg Ondansetron HCl (Zofran Inj) 4 mg IVP Q4 PRN PRN Reason: Nausea/Vomiting Pantoprazole Sodium (Protonix Ec Tab) 40 mg PO DAILY [facility] Last Admin: 05/25/17 08:34 Dose: 40 mg Potassium Chloride (K-Dur 20 Meq Er Tab) 20 meq PO DAILY [facility] Last Admin: 05/25/17 08:34 Dose: 20 meq Prednisolone Acetate (Pred Forte 1% Opht Susp) 1 drop OU QID [facility] Last Admin: 05/25/17 12:36 Dose: 1 drop Promethazine HCl/Codeine (Phenergan/Codeine Oral Syrup) 10 ml PO HS PRN PRN Reason: Cough Last Admin: 05/23/17 22:25 Dose: 10 ml Promethazine HCl/Dextromethorphan (Phenergan Dm Syrup) 10 ml PO Q8 PRN PRN Reason: Cough Last Admin: 05/24/17 21:37 Dose: 10 ml Ramipril (Altace) 5 mg PO DAILY [facility] Last Admin: 05/25/17 08:34 Dose: 5 mg Risperidone (Risperdal Tab) 0.25 mg PO Q12 PRN PRN Reason: Agitation Last Admin: 05/20/17 21:16 Dose: 0.25 mg Sertraline HCl (Zoloft) 50 mg PO HS [facility] Last Admin: 05/24/17 21:16 Dose: 50 mg Timolol Maleate (Timoptic 0.5% Ophth Soln) 1 drop OU BID [facility] Last Admin: 05/25/17 08:32 Dose: 1 drop Assessment and Plan (1) Physical debility Status: Acute (2) Dementia Status: Chronic (3) 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
--- NOTE | 2017-05-25 14:04 | CP.PCM.PN ---
Subjective - Date & Time of Evaluation Date of Evaluation: 05/25/17 Time of Evaluation: 14:04 - Subjective Subjective: Patient remains stable Has no chest pain or SOB Still with a lot of coughing. Objective - Vital Signs/Intake and Output Vital Signs (last 24 hours): Temp Pulse Resp BP Pulse Ox 97.7 F 103 H 20 145/68 89 L 05/24/17 19:14 05/25/17 08:36 05/24/17 19:14 05/25/17 08:36 05/24/17 19:14 - Medications Medications: Current Medications Acetaminophen (Tylenol 325mg Tab) 650 mg PO Q4 [facility] Last Admin: 05/25/17 12:37 Dose: Not Given Acetaminophen/Butalbital/Caffeine (Fioricet) 1 tab PO Q8H PRN PRN Reason: Migraine headache Last Admin: 05/23/17 11:39 Dose: 1 tab Albuterol/Ipratropium (Duoneb 3 Mg/0.5 Mg (3 Ml) Ud) 3 ml INH RQID [facility] Last Admin: 05/25/17 11:08 Dose: 3 ml Amlodipine Besylate (Norvasc) 2.5 mg PO DAILY [facility] Last Admin: 05/25/17 08:36 Dose: 2.5 mg Atorvastatin Calcium (Lipitor) 40 mg PO HS [facility] Last Admin: 05/24/17 21:16 Dose: 40 mg Brimonidine Tartrate (Alphagan 0.2% Opht) 1 drop OU TID [facility] Last Admin: 05/25/17 12:36 Dose: 1 drop Cholecalciferol (Vitamin D) 1,000 iu PO HS [facility] Last Admin: 05/24/17 21:15 Dose: 1,000 iu Ciprofloxacin (Ciloxan 0.3% Ophth Soln) 1 drop OU Q2 [facility] Last Admin: 05/25/17 12:36 Dose: 1 drop Clopidogrel Bisulfate (Plavix) 75 mg PO DAILY [facility] Last Admin: 05/25/17 08:35 Dose: 75 mg Dextrose (Dextrose 50% Inj) 0 ml IVP STAT PRN; Protocol PRN Reason: Hypoglycemia Protocol Docusate Sodium (Colace) 200 mg PO HS [facility] Last Admin: 05/24/17 21:34 Dose: Not Given Donepezil HCl (Aricept) 10 mg PO HS [facility] Last Admin: 05/24/17 21:16 Dose: 10 mg Enoxaparin Sodium (Lovenox) 40 mg SC DAILY [facility] PRN Reason: Protocol Last Admin: 05/25/17 08:33 Dose: 40 mg Famotidine (Pepcid) 20 mg PO BID [facility] Last Admin: 05/25/17 08:36 Dose: 20 mg Furosemide (Lasix) 40 mg PO DAILY [facility] Last Admin: 05/25/17 08:33 Dose: 40 mg Glucagon (Glucagen Diagnostic Kit) 0 mg IM STAT PRN; Protocol PRN Reason: Hypoglycemia Protocol Guaifenesin (Mucinex La) 600 mg PO Q12 [facility] Last Admin: 05/25/17 08:33 Dose: 600 mg Ciprofloxacin (Cipro 400mg/200ml Dsw) 400 mg in 200 mls @ 200 mls/hr IVPB Q12@ 0500,1700 [facility] Last Admin: 05/25/17 04:48 Dose: 200 mls/hr Insulin Human Regular (Humulin R) 0 units SC ACHS [facility] PRN Reason: Protocol Last Admin: 05/25/17 12:37 Dose: Not Given Lactulose (Enulose) 20 gm PO DAILY PRN PRN Reason: Constipation Last Admin: 05/23/17 17:41 Dose: 20 gm Latanoprost (Xalatan Opht) 1 drop OU HS [facility] Last Admin: 05/24/17 21:22 Dose: 1 drop Levothyroxine Sodium (Synthroid) 75 mcg PO DAILY@0630 [facility] Last Admin: 05/25/17 05:59 Dose: 75 mcg Meclizine HCl (Antivert) 25 mg PO TID PRN PRN Reason: Dizziness Last Admin: 05/23/17 11:40 Dose: 25 mg Memantine (Namenda) 10 mg PO BID [facility] Last Admin: 05/25/17 08:35 Dose: 10 mg Metoprolol Tartrate (Lopressor) 12.5 mg PO DAILY PRN PRN Reason: SBP >139 Last Admin: 05/23/17 22:04 Dose: 12.5 mg Ondansetron HCl (Zofran Inj) 4 mg IVP Q4 PRN PRN Reason: Nausea/Vomiting Pantoprazole Sodium (Protonix Ec Tab) 40 mg PO DAILY [facility] Last Admin: 05/25/17 08:34 Dose: 40 mg Potassium Chloride (K-Dur 20 Meq Er Tab) 20 meq PO DAILY [facility] Last Admin: 05/25/17 08:34 Dose: 20 meq Prednisolone Acetate (Pred Forte 1% Opht Susp) 1 drop OU QID [facility] Last Admin: 05/25/17 12:36 Dose: 1 drop Promethazine HCl/Codeine (Phenergan/Codeine Oral Syrup) 10 ml PO HS PRN PRN Reason: Cough Last Admin: 05/23/17 22:25 Dose: 10 ml Promethazine HCl/Dextromethorphan (Phenergan Dm Syrup) 10 ml PO Q8 PRN PRN Reason: Cough Last Admin: 05/24/17 21:37 Dose: 10 ml Ramipril (Altace) 5 mg PO DAILY [facility] Last Admin: 05/25/17 08:34 Dose: 5 mg Risperidone (Risperdal Tab) 0.25 mg PO Q12 PRN PRN Reason: Agitation Last Admin: 05/20/17 21:16 Dose: 0.25 mg Sertraline HCl (Zoloft) 50 mg PO HS [facility] Last Admin: 05/24/17 21:16 Dose: 50 mg Timolol Maleate (Timoptic 0.5% Ophth Soln) 1 drop OU BID [facility] Last Admin: 05/25/17 08:32 Dose: 1 drop Assessment and Plan (1) Physical debility Status: Acute (2) Dementia Status: Chronic (3) 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
[2017-05-25] MEDS: Latanoprost 0.005% Opht SOUTION OU SCH (21:10)
[2017-05-25] MEDS: Promethazine/Cod 6.25mg-10mg/5ml Syr UD PO PRN (21:12)
[2017-05-25] MEDS: Insulin Detemir 100 Units/ml Inj SC SCH (21:54)
[2017-05-26] MEDS: Ciprofloxacin 400mg/200ml D5W 400 MG/200 ML BAG IVPB SCH (05:10)
[2017-05-26 06:16] LABS: BASO # 0.1 K/uL (0.0-0.2); BASO % 0.9 % (0.0-2.0); EOS # 0.1 K/uL (0.0-0.7); EOS % 0.9 % (0.0-4.0); HEMATOCRIT 30.3 % (34.0-47.0); LYMPH # 1.5 K/uL (1.0-4.3); LYMPH % 18.6 % (20.0-40.0); MEAN CELL VOLUME 88.4 fl (81.0-99.0); MEAN CORPUSCULAR HEMOGLOBIN 29.3 pg (27.0-31.0); MEAN CORPUSCULAR HGB CONC 33.2 g/dL (33.0-37.0); MEAN PLATELET VOLUME 9.4 fl (7.2-11.7); NEUT # 5.3 K/uL (1.8-7.0); NEUT % 66.6 % (50.0-75.0); RED CELL DISTRIBUTION WIDTH 13.4 % (11.5-14.5); WHITE BLOOD COUNT 7.9 K/uL (4.8-10.8)
[2017-05-26] MEDS: Ciprofloxacin 0.3% OPTH SOLN OU SCH ×12 (06:24→23:58)
[2017-05-26] MEDS: Levothyroxine 75 MCG TAB PO SCH (06:29)
[2017-05-26 06:30] LABS: BILIRUBIN,TOTAL 0.4 mg/dl (0.2-1.3); CALCIUM 8.2 mg/dL (8.4-10.2); POTASSIUM 4.5 MMOL/L (3.6-5.0)
[2017-05-26] MEDS: Insulin Regular 100 units/ml SC SCH ×4 (06:30→22:19)
[2017-05-26] MEDS: Albuterol-Ipratrop 3 mg / 0.5 (3 ml) UD INH SCH ×4 (07:41→19:11)
[2017-05-26] MEDS: Potassium Chloride 20 mEq ER Tab PO SCH (09:09)
[2017-05-26] MEDS: Pantoprazole 40 mg EC Tab PO SCH (09:09)
[2017-05-26] MEDS: guaiFENesin 600 mg ER Tab PO SCH ×2 (09:10→22:21)
[2017-05-26] MEDS: Enoxaparin 40 mg Syringe SC SCH (09:10)
[2017-05-26] MEDS: PrednisoLONE 1% OPTH SUSP OU SCH ×4 (09:23→22:21)
[2017-05-26] MEDS: Brimonidine 0.2% 50 DROP/5 ML BOTTLE OU SCH ×3 (09:33→17:28)
--- NOTE | 2017-05-26 11:07 | CP.PCM.PN ---
Subjective - Date & Time of Evaluation Date of Evaluation: 05/26/17 Time of Evaluation: 11:06 - Subjective Subjective: Patient is doing well Has no chest pain Objective - Vital Signs/Intake and Output Vital Signs (last 24 hours): Temp Pulse Resp BP Pulse Ox 97.9 F 78 20 149/73 95 05/26/17 07:44 05/26/17 09:10 05/26/17 07:44 05/26/17 09:12 05/26/17 07:44 - Medications Medications: Current Medications Acetaminophen (Tylenol 325mg Tab) 650 mg PO Q4 PRN PRN Reason: Pain, moderate (4-7) Acetaminophen/Butalbital/Caffeine (Fioricet) 1 tab PO Q8H PRN PRN Reason: Migraine headache Last Admin: 05/23/17 11:39 Dose: 1 tab Albuterol/Ipratropium (Duoneb 3 Mg/0.5 Mg (3 Ml) Ud) 3 ml INH RQID [facility] Last Admin: 05/26/17 07:41 Dose: 3 ml Amlodipine Besylate (Norvasc) 2.5 mg PO DAILY [facility] Last Admin: 05/26/17 09:10 Dose: 2.5 mg Atorvastatin Calcium (Lipitor) 40 mg PO HS [facility] Last Admin: 05/25/17 21:52 Dose: 40 mg Brimonidine Tartrate (Alphagan 0.2% Opht) 1 drop OU TID [facility] Last Admin: 05/26/17 09:33 Dose: 1 drop Cholecalciferol (Vitamin D) 1,000 iu PO HS [facility] Last Admin: 05/25/17 21:08 Dose: 1,000 iu Ciprofloxacin (Ciloxan 0.3% Ophth Soln) 1 drop OU Q2 [facility] Last Admin: 05/26/17 10:43 Dose: 1 drop Clopidogrel Bisulfate (Plavix) 75 mg PO DAILY [facility] Last Admin: 05/26/17 09:09 Dose: 75 mg Dextrose (Dextrose 50% Inj) 0 ml IVP STAT PRN; Protocol PRN Reason: Hypoglycemia Protocol Docusate Sodium (Colace) 200 mg PO HS [facility] Last Admin: 05/25/17 21:53 Dose: Not Given Donepezil HCl (Aricept) 10 mg PO HS [facility] Last Admin: 05/25/17 21:52 Dose: 10 mg Enoxaparin Sodium (Lovenox) 40 mg SC DAILY [facility] PRN Reason: Protocol Last Admin: 05/26/17 09:10 Dose: 40 mg Famotidine (Pepcid) 20 mg PO BID [facility] Last Admin: 05/26/17 09:10 Dose: 20 mg Furosemide (Lasix) 40 mg PO DAILY [facility] Last Admin: 05/26/17 09:12 Dose: 40 mg Glucagon (Glucagen Diagnostic Kit) 0 mg IM STAT PRN; Protocol PRN Reason: Hypoglycemia Protocol Guaifenesin (Mucinex La) 600 mg PO Q12 [facility] Last Admin: 05/26/17 09:10 Dose: 600 mg Ciprofloxacin (Cipro 400mg/200ml Dsw) 400 mg in 200 mls @ 200 mls/hr IVPB Q12@ 0500,1700 [facility] Last Admin: 05/26/17 05:10 Dose: 200 mls/hr Insulin Detemir (Levemir) 10 units SC [facility] Last Admin: 05/25/17 21:54 Dose: Not Given Insulin Human Regular (Humulin R) 0 units SC [facility] PRN Reason: Protocol Last Admin: 05/26/17 06:30 Dose: 4 units Lactulose (Enulose) 20 gm PO DAILY PRN PRN Reason: Constipation Last Admin: 05/23/17 17:41 Dose: 20 gm Latanoprost (Xalatan Opht) 1 drop OU HS [facility] Last Admin: 05/25/17 21:10 Dose: 1 drop Levothyroxine Sodium (Synthroid) 75 mcg PO DAILY@0630 [facility] Last Admin: 05/26/17 06:29 Dose: 75 mcg Meclizine HCl (Antivert) 25 mg PO TID PRN PRN Reason: Dizziness Last Admin: 05/23/17 11:40 Dose: 25 mg Memantine (Namenda) 10 mg PO BID [facility] Last Admin: 05/26/17 09:12 Dose: 10 mg Metoprolol Tartrate (Lopressor) 12.5 mg PO DAILY PRN PRN Reason: SBP >139 Last Admin: 05/23/17 22:04 Dose: 12.5 mg Ondansetron HCl (Zofran Inj) 4 mg IVP Q4 PRN PRN Reason: Nausea/Vomiting Pantoprazole Sodium (Protonix Ec Tab) 40 mg PO DAILY [facility] Last Admin: 05/26/17 09:09 Dose: 40 mg Potassium Chloride (K-Dur 20 Meq Er Tab) 20 meq PO DAILY [facility] Last Admin: 05/26/17 09:09 Dose: 20 meq Prednisolone Acetate (Pred Forte 1% Opht Susp) 1 drop OU QID [facility] Last Admin: 05/26/17 09:23 Dose: 1 drop Promethazine HCl/Codeine (Phenergan/Codeine Oral Syrup) 10 ml PO HS PRN PRN Reason: Cough Last Admin: 05/25/17 21:12 Dose: 10 ml Promethazine HCl/Dextromethorphan (Phenergan Dm Syrup) 10 ml PO Q8 PRN PRN Reason: Cough Last Admin: 05/24/17 21:37 Dose: 10 ml Ramipril (Altace) 5 mg PO DAILY [facility] Last Admin: 05/26/17 09:10 Dose: 5 mg Risperidone (Risperdal Tab) 0.25 mg PO Q12 PRN PRN Reason: Agitation Last Admin: 05/25/17 21:06 Dose: 0.25 mg Sertraline HCl (Zoloft) 50 mg PO HS [facility] Last Admin: 05/25/17 21:10 Dose: 50 mg Timolol Maleate (Timoptic 0.5% Ophth Soln) 1 drop OU BID [facility] Last Admin: 05/26/17 09:12 Dose: 1 drop - Labs Labs: 05/26/17 05:50 05/26/17 05:50 Assessment and Plan (1) Physical debility Status: Acute (2) Dementia Status: Chronic (3) 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
[2017-05-26] MEDS: Promethazine DM 12.5 mg-30 mg/10 ml Syrup PO PRN (13:14)
[2017-05-26] MEDS: Insulin Detemir 100 Units/ml Inj SC SCH (22:19)
[2017-05-26] MEDS: Latanoprost 0.005% Opht SOUTION OU SCH (22:22)
[2017-05-26] MEDS: Promethazine/Cod 6.25mg-10mg/5ml Syr UD PO PRN (22:27)
[2017-05-27] MEDS: Ciprofloxacin 0.3% OPTH SOLN OU SCH ×5 (02:00→12:54)
[2017-05-27] MEDS: Levothyroxine 75 MCG TAB PO SCH (06:37)
[2017-05-27] MEDS: Insulin Regular 100 units/ml SC SCH ×4 (06:43→21:37)
[2017-05-27] MEDS: Albuterol-Ipratrop 3 mg / 0.5 (3 ml) UD INH SCH ×4 (07:35→19:15)
[2017-05-27] MEDS: Enoxaparin 40 mg Syringe SC SCH (09:19)
[2017-05-27] MEDS: guaiFENesin 600 mg ER Tab PO SCH ×2 (09:21→21:33)
[2017-05-27] MEDS: Potassium Chloride 20 mEq ER Tab PO SCH (09:21)
[2017-05-27] MEDS: Pantoprazole 40 mg EC Tab PO SCH (09:23)
[2017-05-27] MEDS: PrednisoLONE 1% OPTH SUSP OU SCH ×4 (09:25→21:32)
[2017-05-27] MEDS: Brimonidine 0.2% 50 DROP/5 ML BOTTLE OU SCH ×3 (09:27→17:52)
--- NOTE | 2017-05-27 10:44 | CP.PCM.PN ---
Subjective - Date & Time of Evaluation Date of Evaluation: 05/27/17 Time of Evaluation: 10:45 - Subjective Subjective: Patient has less cough. Has no hallucinations Has no chest pain. Objective - Vital Signs/Intake and Output Vital Signs (last 24 hours): Temp Pulse Resp BP Pulse Ox 98.1 F 88 20 152/75 H 98 05/27/17 08:06 05/27/17 09:21 05/27/17 08:06 05/27/17 09:22 05/27/17 08:06 - Medications Medications: Current Medications Acetaminophen (Tylenol 325mg Tab) 650 mg PO Q4 PRN PRN Reason: Pain, moderate (4-7) Acetaminophen/Butalbital/Caffeine (Fioricet) 1 tab PO Q8H PRN PRN Reason: Migraine headache Last Admin: 05/23/17 11:39 Dose: 1 tab Albuterol/Ipratropium (Duoneb 3 Mg/0.5 Mg (3 Ml) Ud) 3 ml INH RQID [facility] Last Admin: 05/27/17 07:35 Dose: 3 ml Amlodipine Besylate (Norvasc) 2.5 mg PO DAILY [facility] Last Admin: 05/27/17 09:20 Dose: 2.5 mg Atorvastatin Calcium (Lipitor) 40 mg PO HS [facility] Last Admin: 05/26/17 22:20 Dose: 40 mg Brimonidine Tartrate (Alphagan 0.2% Opht) 1 drop OU TID [facility] Last Admin: 05/27/17 09:27 Dose: 1 drop Cholecalciferol (Vitamin D) 1,000 iu PO HS [facility] Last Admin: 05/26/17 22:21 Dose: 1,000 iu Clopidogrel Bisulfate (Plavix) 75 mg PO DAILY [facility] Last Admin: 05/27/17 09:27 Dose: 75 mg Dextrose (Dextrose 50% Inj) 0 ml IVP STAT PRN; Protocol PRN Reason: Hypoglycemia Protocol Docusate Sodium (Colace) 200 mg PO HS [facility] Last Admin: 05/26/17 22:07 Dose: Not Given Donepezil HCl (Aricept) 10 mg PO HS [facility] Last Admin: 05/26/17 22:17 Dose: 10 mg Enoxaparin Sodium (Lovenox) 40 mg SC DAILY [facility] PRN Reason: Protocol Last Admin: 05/27/17 09:19 Dose: 40 mg Famotidine (Pepcid) 20 mg PO BID [facility] Last Admin: 05/27/17 09:19 Dose: 20 mg Furosemide (Lasix) 40 mg PO DAILY [facility] Last Admin: 05/27/17 09:22 Dose: 40 mg Glucagon (Glucagen Diagnostic Kit) 0 mg IM STAT PRN; Protocol PRN Reason: Hypoglycemia Protocol Guaifenesin (Mucinex La) 600 mg PO Q12 [facility] Last Admin: 05/27/17 09:21 Dose: 600 mg Insulin Detemir (Levemir) 10 units SC HS [facility] Last Admin: 05/26/17 22:19 Dose: 10 units Insulin Human Regular (Humulin R) 0 units SC ACHS [facility] PRN Reason: Protocol Last Admin: 05/27/17 06:43 Dose: 4 units Lactulose (Enulose) 20 gm PO DAILY PRN PRN Reason: Constipation Last Admin: 05/23/17 17:41 Dose: 20 gm Latanoprost (Xalatan Opht) 1 drop OU HS [facility] Last Admin: 05/26/17 22:22 Dose: 1 drop Levothyroxine Sodium (Synthroid) 75 mcg PO DAILY@0630 [facility] Last Admin: 05/27/17 06:37 Dose: 75 mcg Meclizine HCl (Antivert) 25 mg PO TID PRN PRN Reason: Dizziness Last Admin: 05/23/17 11:40 Dose: 25 mg Memantine (Namenda) 10 mg PO BID [facility] Last Admin: 05/27/17 09:21 Dose: 10 mg Metoprolol Tartrate (Lopressor) 12.5 mg PO DAILY PRN PRN Reason: SBP >139 Last Admin: 05/27/17 09:21 Dose: 12.5 mg Ondansetron HCl (Zofran Inj) 4 mg IVP Q4 PRN PRN Reason: Nausea/Vomiting Pantoprazole Sodium (Protonix Ec Tab) 40 mg PO DAILY [facility] Last Admin: 05/27/17 09:23 Dose: 40 mg Potassium Chloride (K-Dur 20 Meq Er Tab) 20 meq PO DAILY [facility] Last Admin: 05/27/17 09:21 Dose: 20 meq Prednisolone Acetate (Pred Forte 1% Opht Susp) 1 drop OU QID [facility] Last Admin: 05/27/17 09:25 Dose: 1 drop Promethazine HCl/Codeine (Phenergan/Codeine Oral Syrup) 10 ml PO HS PRN PRN Reason: Cough Last Admin: 05/26/17 22:27 Dose: 10 ml Promethazine HCl/Dextromethorphan (Phenergan Dm Syrup) 10 ml PO Q8 PRN PRN Reason: Cough Last Admin: 05/26/17 13:14 Dose: 10 ml Ramipril (Altace) 5 mg PO DAILY [facility] Last Admin: 05/27/17 09:20 Dose: 5 mg Risperidone (Risperdal Tab) 0.25 mg PO Q12 PRN PRN Reason: Agitation Last Admin: 05/27/17 09:22 Dose: 0.25 mg Sertraline HCl (Zoloft) 50 mg PO HS [facility] Last Admin: 05/26/17 22:22 Dose: 50 mg Timolol Maleate (Timoptic 0.5% Ophth Soln) 1 drop OU BID [facility] Last Admin: 05/27/17 09:25 Dose: 1 drop - Labs Labs: 05/26/17 05:50 05/26/17 05:50 - Head Exam Head Exam: NORMAL INSPECTION - Eye Exam Eye Exam: Normal appearance - ENT Exam ENT Exam: Mucous Membranes Moist - Respiratory Exam Respiratory Exam: Clear to Ausculation Bilateral - Cardiovascular Exam Cardiovascular Exam: REGULAR RHYTHM - GI/Abdominal Exam GI & Abdominal Exam: Normal Bowel Sounds Assessment and Plan (1) Physical debility Status: Acute (2) Dementia Status: Chronic (3) 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
[2017-05-27] MEDS: Latanoprost 0.005% Opht SOUTION OU SCH (21:25)
[2017-05-27] MEDS: Insulin Detemir 100 Units/ml Inj SC SCH (21:36)
[2017-05-28] MEDS: Levothyroxine 75 MCG TAB PO SCH (05:43)
[2017-05-28] MEDS: Insulin Regular 100 units/ml SC SCH ×3 (06:39→17:35)
[2017-05-28] MEDS: Promethazine DM 12.5 mg-30 mg/10 ml Syrup PO PRN (07:00)
[2017-05-28] MEDS: Albuterol-Ipratrop 3 mg / 0.5 (3 ml) UD INH SCH ×4 (07:27→19:00)
[2017-05-28] MEDS: Brimonidine 0.2% 50 DROP/5 ML BOTTLE OU SCH ×3 (09:08→17:33)
[2017-05-28] MEDS: Potassium Chloride 20 mEq ER Tab PO SCH (09:09)
[2017-05-28] MEDS: guaiFENesin 600 mg ER Tab PO SCH (09:11)
[2017-05-28] MEDS: Pantoprazole 40 mg EC Tab PO SCH (09:14)
[2017-05-28] MEDS: Enoxaparin 40 mg Syringe SC SCH (09:15)
[2017-05-28] MEDS: PrednisoLONE 1% OPTH SUSP OU SCH ×3 (09:18→17:40)
--- NOTE | 2017-05-28 16:35 | CP.PCM.DIS ---
Provider - Provider Date of Admission: 05/19/17 18:02 Attending physician: Morris Mcginnis MD Primary care physician: Morris Mcginnis MD Hospital Course - Lab Results Lab Results: Micro Results 05/26/17 06:12 Urine,Catheterized Urine Culture - Final No Growth (<1,000 CFU/ML) Most Recent Lab Values WBC 7.9 K/uL (4.8-10.8) D 05/26/17 05:50 RBC 3.43 Mil/uL (3.80-5.20) L 05/26/17 05:50 Hgb 10.1 g/dL (12.0-16.0) L 05/26/17 05:50 Hct 30.3 % (34.0-47.0) L 05/26/17 05:50 MCV 88.4 fl (81.0-99.0) 05/26/17 05:50 MCH 29.3 pg (27.0-31.0) 05/26/17 05:50 MCHC 33.2 g/dL (33.0-37.0) 05/26/17 05:50 RDW 13.4 % (11.5-14.5) 05/26/17 05:50 Plt Count 372 K/uL (130-400) D 05/26/17 05:50 MPV 9.4 fl (7.2-11.7) 05/26/17 05:50 Neut % (Auto) 66.6 % (50.0-75.0) 05/26/17 05:50 Lymph % (Auto) 18.6 % (20.0-40.0) L 05/26/17 05:50 Allen % (Auto) 13.0 % (0.0-10.0) H 05/26/17 05:50 Eos % (Auto) 0.9 % (0.0-4.0) 05/26/17 05:50 Baso % (Auto) 0.9 % (0.0-2.0) 05/26/17 05:50 Neut # 5.3 K/uL (1.8-7.0) 05/26/17 05:50 Lymph # 1.5 K/uL (1.0-4.3) 05/26/17 05:50 Allen # 1.0 K/uL (0.0-0.8) H 05/26/17 05:50 Eos # 0.1 K/uL (0.0-0.7) 05/26/17 05:50 Baso # 0.1 K/uL (0.0-0.2) 05/26/17 05:50 Sodium 128 mmol/l (132-148) L 05/26/17 05:50 Potassium 4.5 MMOL/L (3.6-5.0) 05/26/17 05:50 Chloride 89 mmol/L (98-107) L 05/26/17 05:50 Carbon Dioxide 31 mmol/L (22-30) H 05/26/17 05:50 Anion Gap 13 (10-20) 05/26/17 05:50 BUN 23 mg/dl (7-17) H 05/26/17 05:50 Creatinine 1.3 mg/dl (0.7-1.2) H 05/26/17 05:50 Est GFR ( Amer) 47 05/26/17 05:50 Est GFR (Non-Af Amer) 39 05/26/17 05:50 POC Glucose (mg/dL) 224 mg/dL (65-110) H 05/28/17 15:48 Random Glucose 293 mg/dL (65-105) H 05/26/17 05:50 Calcium 8.2 mg/dL (8.4-10.2) L 05/26/17 05:50 Total Bilirubin 0.4 mg/dl (0.2-1.3) 05/26/17 05:50 AST 50 U/L (14-36) H D 05/26/17 05:50 ALT 45 U/L (9-52) 05/26/17 05:50 Alkaline Phosphatase 80 U/L (38-126) 05/26/17 05:50 NT-Pro-B Natriuret Pep 901 pg/ml (0-900) H 05/22/17 08:06 Total Protein 7.0 G/DL (6.3-8.2) 05/26/17 05:50 Albumin 3.5 g/dL (3.5-5.0) 05/26/17 05:50 Globulin 3.5 gm/dL (2.2-3.9) 05/26/17 05:50 Albumin/Globulin Ratio 1.0 (1.0-2.1) 05/26/17 05:50 C. difficile Ag & Toxin Negative (NEGATIVE) 05/24/17 13:23 Discharge Exam - Head Exam Head Exam: NORMAL INSPECTION Discharge Plan - Follow Up Plan Condition: GOOD Disposition: HOME/ ROUTINE Instructions: Urinary Tract Infection in Women (DC), Hypertension (DC) Referrals: Morris Mcginnis MD [Primary Care Provider] -
[2017-05-28 19:39] VITALS: TEMP 96.8; O2SAT 95
[2017-05-28 20:24] VITALS: BP 100/54; PULSE 68; RESP 18
== END 2017-05-28 20:20 | disposition home or self-care (01) | DRG 884 ==
LOC: H.TCU 18:02
PROVIDERS: ADMIT Family Medicine; ATTEND Family Medicine
PROC: F07Z9FZ Gait Training/Functional Ambulation Treatment using Assistive, Adaptive, Supportive or Protective Equipment (ICD-10-PCS; principal; 2017-05-19)
PROC: 3E03329 Introduction of Other Anti-infective into Peripheral Vein, Percutaneous Approach (ICD-10-PCS; 2017-05-19)
PROC: F07M6FZ Therapeutic Exercise Treatment of Musculoskeletal System - Whole Body using Assistive, Adaptive, Supportive or Protective Equipment (ICD-10-PCS; 2017-05-19)
PROC: F08Z2FZ Grooming/Personal Hygiene Treatment using Assistive, Adaptive, Supportive or Protective Equipment (ICD-10-PCS; 2017-05-20)
DX: R54 Age-related physical debility (principal); N39.0 Urinary tract infection, site not specified; G30.9 Alzheimer's disease, unspecified; E11.319 Type 2 diabetes mellitus with unspecified diabetic retinopathy without macular edema; F02.80 Dementia in other diseases classified elsewhere, unspecified severity, without behavioral disturbance, psychotic disturbance, mood disturbance, and anxiety; E03.9 Hypothyroidism, unspecified; E78.5 Hyperlipidemia, unspecified; E66.9 Obesity, unspecified; F22 Delusional disorders; H54.8 Legal blindness, as defined in USA; H40.9 Unspecified glaucoma; I10 Essential (primary) hypertension; N60.02 Solitary cyst of left breast; Z86.73 Personal history of transient ischemic attack (TIA), and cerebral infarction without residual deficits; Z87.01 Personal history of pneumonia (recurrent); Z87.440 Personal history of urinary (tract) infections; Z88.0 Allergy status to penicillin; Z88.6 Allergy status to analgesic agent; Z88.2 Allergy status to sulfonamides

== ENCOUNTER 2017-06-10 10:55 | Inpatient (IN) | payer MEDICARE ==
[2017-06-10 10:58] VITALS: BMI 30.3
[2017-06-10] MEDS ORDERED: Sodium Chloride 0.9% 1,000 ML IV STA ×3 (11:26→15:43)
--- NOTE | 2017-06-10 11:40 | ED PDOC ---
HPI: General Adult Time Seen by Provider: 06/10/17 11:11 Chief Complaint (Provider): vomiting coffee grounds History Per: Family History/Exam Limitations: no limitations Onset/Duration Of Symptoms: Hrs (4) Current Symptoms Are (Timing): Intermittent Episodes Severity: Moderate Recently: Hospitalized Additional Complaint(s): 81yo female multiple medical problems, recently discharged from hospital, presents via EMS with daughter who states she started vomiting poorly digested food this morning, then dark coffee ground emesis. Had soft BM this morning attributable to laxative she took last night for constipation. No fever, no melena. Has samples of both emesis and stool with her- emesis appears coffee ground, stool appears soft/liquid brown. Daughter denies new malodor to stool or hx CDiff. Patient has mild dementia, c/o upper abdominal pain, has allergy to oral and IV contrast dye. 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; L side weakness), Dementia, Depression, Diabetes, Diverticulitis (Diverticulosis), Fractures (rt wrist/elbow), Gastritis, HTN, Hypercholesterolemia, Hyperlipidemia, Hypothyroidism, Migraine, Pneumonia, TIA ( 2013) Denies: Arthritis, HIV, Chronic Kidney Disease - Surgical History Surgical History: Tonsillectomy (partial thyroidectomy) Denies: CABG - Family History Family History: States: Unknown Family Hx - Living Arrangements Living Arrangements: With Family - Social History Current smoker - smoking cessation education provided: No - Home Medications Home Medications: Ambulatory Orders Medication Instructions Recorded Acetaminophen/Butalbital/Caf 1 tab PO Q8H PRN 08/23/15 [Fioricet] Atorvastatin [Lipitor] 40 mg PO HS 08/23/15 Cholecalciferol [Vitamin D 1000 IU] 1,000 units PO HS 08/23/15 Clopidogrel [Plavix] 75 mg PO DAILY 08/23/15 Donepezil [Aricept] 10 mg PO HS 08/23/15 Latanoprost 0.005% Opht [Xalatan 1 drop EACHEYE HS 08/23/15 Opht] Meclizine HCl [Antivert] 25 mg PO TID PRN 08/23/15 Memantine [Namenda] 10 mg PO BID 08/23/15 Prednisolone Acetate [Pred Forte] 1 drop BOTHEYES QID 08/23/15 Ramipril 5 mg PO DAILY 08/23/15 Sertraline [Zoloft] 50 mg PO HS 08/23/15 Docusate [Colace] 200 mg PO HS 10/02/16 Metoprolol Tartrate [Lopressor] 12.5 mg PO DAILY PRN 10/02/16 Promethazine/Codeine 15 ml PO HS PRN udc 05/19/17 [Phenergan/Codeine Oral Syrup] Levothyroxine [Synthroid] 75 mcg PO DAILY@0630 tab 05/28/17 Brimonidine Tartrate/Timolol 1 drop BOTHEYES BID 06/10/17 [Combigan 0.2%-0.5% Eye Drops] Insulin Aspart Prot/Insuln Asp 10 unit SC DIN 06/10/17 [Novolog Mix 70-30 Vial] Insulin Aspart Prot/Insuln Asp 50 unit SC BRK 06/10/17 [Novolog Mix 70-30 Vial] Moxifloxacin HCl [Vigamox] 1 drop BOTHEYES Q4H 06/10/17 Ranitidine HCl [Zantac] 150 mg PO BID 06/10/17 cycloSPORINE [Restasis] 1 drop EACHEYE Q12H 06/10/17 risperiDONE [RisperDAL Tab] 0.25 mg PO HS 06/10/17 - Allergies Allergies/Adverse Reactions: Allergies Allergy/AdvReac Type Severity Reaction Status Date / Time aspirin Allergy NAUSEA Verified 05/13/17 09:32 Sulfa (Sulfonamide Allergy RASH Verified 05/13/17 09:32 Antibiotics) Iodinated Contrast- Oral and AdvReac VOMITING Verified 05/13/17 09:32 IV Dye metformin AdvReac DIARRHEA Verified 05/13/17 09:32 Review of Systems Constitutional: Positive for: Weakness. Negative for: Fever, Chills ENT: Negative for: Nose Discharge Cardiovascular: Negative for: Palpitations, Orthopnea Respiratory: Positive for: Cough, Sputum. Negative for: Shortness of Breath Gastrointestinal: Positive for: Nausea, Vomiting, Abdominal Pain, Constipation, Other (coffee ground emesis). Negative for: Melena, Hematochezia Genitourinary Female: Positive for: Dysuria, Incontinence Musculoskeletal: Negative for: Neck Pain, Arm Pain, Leg Pain Skin: Negative for: Rash, Lesions, Jaundice Neurological: Positive for: Confusion (baseline). Negative for: Change in Speech Physical Exam - Reviewed Nursing Documentation Reviewed: Yes Vital Signs Reviewed: Yes - Physical Exam Appears: Positive for: Non-toxic, No Acute Distress Head Exam: Positive for: ATRAUMATIC, NORMAL INSPECTION, NORMOCEPHALIC Skin: Positive for: Warm, Dry, Pallor Eye Exam: Positive for: EOMI, Normal appearance, PERRL ENT: Positive for: Normal ENT Inspection Neck: Positive for: Normal, Painless ROM Cardiovascular/Chest: Positive for: Regular Rate, Rhythm Respiratory: Positive for: CNT, Normal Breath Sounds Pulses-Radial (R): 2+ Gastrointestinal/Abdominal: Positive for: Bowel Sounds, Soft, Tenderness (mid and upper abd tenderness). Negative for: Guarding, Rebound Back: Positive for: Normal Inspection Extremity: Positive for: Normal ROM Neurologic/Psych: Positive for: Alert, Other (strength symmetric 4/5). Negative for: Oriented (confused), Motor/Sensory Deficits, Aphasia - Laboratory Results Result Diagrams: 06/11/17 04:30 06/11/17 04:30 - ECG ECG: Positive for: Interpreted By Me ECG Rhythm: Positive for: Sinus Tachycardia, Nonspecific Changes Rate: 104 O2 Sat by Pulse Oximetry: 96 Pulse Ox Interpretation: Normal - Critical Care Total Time (In Min): 45 Medical Decision Making Medical Decision Making: workup initiated for coffee ground emesis. Labs, lactate, T/S, protonix, IVF bolus Prior chart reviewed from admission last week, last Urine Cx negative labs reviewed, reveal elev WBC, worsening renal function compared to prior, lactate 3.2 CT abd/pelv: Accession No. : [id number] Patient Name / ID : JOANN REED / [id number] Exam Date : 06/10/2017 12:53:07 ( Approved ) Study Comment : Sex / Age : F / 81Y Creator : Neri Hanson MD Dictator : Neri Hanson MD Certified Solid Waste Facility Operator : Residential Care Officer : Neri Hanson MD Approver2 : Report Date : 06/10/2017 13:31:04 My Comment : PROCEDURE: CT Abdomen and Pelvis without intravenous contrast HISTORY: upper abd pain hx cholecystectomy COMPARISON: None. TECHNIQUE: Helical CT of the abdomen and pelvis was performed without oral or intravenous contrast as per referring physician request.. Contrast Dose: None Radiation dose: Total exam DLP = 1023.33 mGy-cm. This CT exam was performed using one or more of the following dose reduction techniques: Automated exposure control, adjustment of the mA and/or kV according to patient size, and/or use of iterative reconstruction technique. FINDINGS: Lack of contrast agents limits interpretation. LOWER THORAX: Left lower lobe pneumonia in question. Trace pleural thickening or atelectasis seen along the lateral right upper lobe pleura incidentally. LIVER: Unremarkable. No gross lesion or ductal dilatation. GALLBLADDER AND BILE DUCTS: Unremarkable. PANCREAS: Unremarkable. No gross lesion or ductal dilatation. SPLEEN: Unremarkable. ADRENALS: Unremarkable. No mass. KIDNEYS AND URETERS: Multiple likely vascular calcification identified within bilateral kidneys. No definite obstructive uropathy or definitive intrarenal urolithiasis evident. Ureters are normal in caliber throughout and the urinary bladder is decompressed. VASCULATURE: Extensive aortic iliac atherosclerosis is appreciate without aneurysm formation. BOWEL: Moderate rectal fecal impaction is appreciated. No definite bowel obstruction is evident throughout. Liquid fecal material seen proximal to the distal rectosigmoid. Scattered colonic diverticular seen throughout the colon. No acute diverticulitis pattern evident at this time. APPENDIX: Unremarkable. Normal appendix. PERITONEUM: Unremarkable. No free fluid. No free air. LYMPH NODES: Unremarkable. No enlarged lymph nodes. BLADDER: Unremarkable. REPRODUCTIVE: A pessary is again noted within the vaginal vault. No suspicious adnexal findings. BONES: No acute fracture. OTHER FINDINGS: None. IMPRESSION: 1. Gallbladder is distended but otherwise unremarkable. No radiodense cholelithiasis, mural thickening or pericholecystic fluid collection identified at this time. 2. No obstructive uropathy although though vascular calcifications seen within the renal parenchyma bilaterally. No perinephric reaction bilaterally. 3. Liquified fecal material seen throughout the majority colon with exception of the distal rectosigmoid with moderate rectal fecal impaction identified. 4. Left lower lobe infiltrate favored over atelectasis. Limited pleural thickening or local atelectasis of the right upper lobe laterally. Abx to be initiated after blood cultures obtained. Additional IVF ordered. Admit Dr Ferraro covering Dr Mcginnis. Straight urine cath performed by RN for UA but minimal urine returned, sent for Cx as sterile specimen and on Abx anyway. Occult blood stool sent to lab d/w Dr Boogie resident Dr Toni IRWIN contacted and case discussed Disposition - Clinical Impression Clinical Impression: Pneumonia, Severe sepsis, GI bleed - Patient ED Disposition Is Patient to be Admitted: Yes Counseled Patient/Family Regarding: Studies Performed, Diagnosis - Disposition Disposition Time: 13:30 Condition: GUARDED - Pt Status Changed To: Hospital Disposition Of: Inpatient - Admit Certification Admit to Inpatient:: After my assessment, the patient will require hospitalization for at least two midnights. This is because of the severity of symptoms shown, intensity of services needed, and/or the medical risk in this patient being treated as an outpatient. - POA Present On Arrival: Poor Glycemic Control
[2017-06-10 11:53] LABS: BASO % 0.2 % (0.0-2.0); EOS % 0.4 % (0.0-4.0); HEMATOCRIT 40.8 % (34.0-47.0); LYMPH # 0.3 K/uL (1.0-4.3); LYMPH % 2.3 % (20.0-40.0); MEAN CELL VOLUME 91.7 fl (81.0-99.0); MEAN CORPUSCULAR HEMOGLOBIN 29.4 pg (27.0-31.0); MEAN CORPUSCULAR HGB CONC 32.1 g/dL (33.0-37.0); MEAN PLATELET VOLUME 9.3 fl (7.2-11.7); MONO % 7.7 % (0.0-10.0); NEUT # 11.8 K/uL (1.8-7.0); NEUT % 89.4 % (50.0-75.0); PLATELET COUNT 368 K/uL (130-400); RED CELL DISTRIBUTION WIDTH 14.5 % (11.5-14.5); WHITE BLOOD COUNT 13.2 K/uL (4.8-10.8)
[2017-06-10 12:04] LABS: PARTIAL THROMBOPLASTIN TIME 28.5 Seconds (25.6-37.1)
[2017-06-10 12:18] LABS: ALB/GLOB RATIO 1.1 (1.0-2.1); ALKALINE PHOSPHATASE 100 U/L (38-126); ALT/SGPT 49 U/L (9-52); AST/SGOT 42 U/L (14-36); BILIRUBIN,TOTAL 0.6 mg/dl (0.2-1.3); BLOOD UREA NITROGEN 25 mg/dl (7-17); CALCIUM 9.9 mg/dL (8.4-10.2); CARBON DIOXIDE 22 mmol/L (22-30); CHLORIDE 104 mmol/L (98-107); GFR AFRICAN-AMERICAN 40; GLUCOSE,RANDOM 249 mg/dL (65-105); LIPASE 148 U/L (23-300); POTASSIUM 4.4 MMOL/L (3.6-5.0); SODIUM 139 mmol/l (132-148); TOTAL PROTEIN 8.8 G/DL (6.3-8.2)
[2017-06-10 12:38] LABS: MYELOCYTE 1 % (0-0); NEUTROPHIL 86 % (42-75); TOTAL CELLS COUNTED 100
[2017-06-10 13:28] LABS: VENOUS BLOOD GAS PCO2 46 mmHg (40-60); VENOUS BLOOD PH 7.33 (7.32-7.43)
--- NOTE | 2017-06-10 13:32 | CT ---
PROCEDURE: CT Abdomen and Pelvis without intravenous contrast HISTORY: upper abd pain hx cholecystectomy COMPARISON: None. TECHNIQUE: Helical CT of the abdomen and pelvis was performed without oral or intravenous contrast as per referring physician request.. Contrast Dose: None Radiation dose: Total exam DLP = 1023.33 mGy-cm. This CT exam was performed using one or more of the following dose reduction techniques: Automated exposure control, adjustment of the mA and/or kV according to patient size, and/or use of iterative reconstruction technique. FINDINGS: Lack of contrast agents limits interpretation. LOWER THORAX: Left lower lobe pneumonia in question. Trace pleural thickening or atelectasis seen along the lateral right upper lobe pleura incidentally. LIVER: Unremarkable. No gross lesion or ductal dilatation. GALLBLADDER AND BILE DUCTS: Unremarkable. PANCREAS: Unremarkable. No gross lesion or ductal dilatation. SPLEEN: Unremarkable. ADRENALS: Unremarkable. No mass. KIDNEYS AND URETERS: Multiple likely vascular calcification identified within bilateral kidneys. No definite obstructive uropathy or definitive intrarenal urolithiasis evident. Ureters are normal in caliber throughout and the urinary bladder is decompressed. VASCULATURE: Extensive aortic iliac atherosclerosis is appreciate without aneurysm formation. BOWEL: Moderate rectal fecal impaction is appreciated. No definite bowel obstruction is evident throughout. Liquid fecal material seen proximal to the distal rectosigmoid. Scattered colonic diverticular seen throughout the colon. No acute diverticulitis pattern evident at this time. APPENDIX: Unremarkable. Normal appendix. PERITONEUM: Unremarkable. No free fluid. No free air. LYMPH NODES: Unremarkable. No enlarged lymph nodes. BLADDER: Unremarkable. REPRODUCTIVE: A pessary is again noted within the vaginal vault. No suspicious adnexal findings. BONES: No acute fracture. OTHER FINDINGS: None. IMPRESSION: 1. Gallbladder is distended but otherwise unremarkable. No radiodense cholelithiasis, mural thickening or pericholecystic fluid collection identified at this time. 2. No obstructive uropathy although though vascular calcifications seen within the renal parenchyma bilaterally. No perinephric reaction bilaterally. 3. Liquified fecal material seen throughout the majority colon with exception of the distal rectosigmoid with moderate rectal fecal impaction identified. 4. Left lower lobe infiltrate favored over atelectasis. Limited pleural thickening or local atelectasis of the right upper lobe laterally.
[2017-06-10] MEDS ORDERED: Piperacillin/Tazobact 3.375 GM in Sodium Chloride 0.9% 100 ML IVPB STA (14:03)
--- NOTE | 2017-06-10 14:33 | RAD ---
HISTORY: Shortness of breath COMPARISON: 05/22/2017. FINDINGS: LUNGS: There are low lung volumes. There is persistent moderate pulmonary venous congestion and mild interstitial pulmonary edema. There is bibasilar atelectasis. PLEURA: No significant pleural effusion identified, no pneumothorax apparent. CARDIOVASCULAR: Normal. OSSEOUS STRUCTURES: No significant abnormalities. VISUALIZED UPPER ABDOMEN: Normal. OTHER FINDINGS: None. IMPRESSION: Low lung volumes which may be related to poor inspiratory effort. Persistent pulmonary venous congestion and bibasilar atelectasis.
[2017-06-10 15:43] LABS: VENOUS BLOOD GAS PCO2 52 mmHg (40-60); VENOUS BLOOD PH 7.28 (7.32-7.43)
[2017-06-10] MEDS ORDERED: Glucagon Recombinant 1 mg Inj IM PRN (15:50)
[2017-06-10] MEDS ORDERED: Dextrose 50% SYRINGE Inj (50 ml) IV PRN (15:50)
--- NOTE | 2017-06-10 16:27 | CP.PCM.HP ---
History of Present Illness - History of Present Illness History of Present Illness: 81 yo ,f, PMHX/o hx of dementia DM 2 blindness both eyes, HTN Hyperlipidemia Hypothyroidism recently discharged from hospital 05/28/17 treated for recurrent UTI, is brought in borught in via EMS with her daughter who states that she had several vomiting this morning coffe ground color in total 12 associated with several diarrheas nonbloddy unable to say amount. She report patient took a laxant last night. she also reports productive cough, unable to expectorate noticed while she was hospitalized. She denies fever, SOB on exertion, dysuria. Reports normal appetite PMD: Madi Schroeder PMHx: dementia DM 2 blindness both eyes, HTN Hyperlipidemia Hypothyroidism Allergies: Sulfa, Aspirin, metformin PSurghx: B.L eye cornea, right breast PShx: Denies ETOH, rect drugs, sig ED course CT abd: left lower lobe pneumonia. no diverticulosis Vanco, zosyn, fluids given Ed, blood cx, urine cx taken. GI consult called. Present on Admission - Present on Admission Any Indicators Present on Admission: No History of DVT/PE: No Urinary Catheter: No Decubitus Ulcer Present: No Review of Systems - Gastrointestinal Gastrointestinal: Diarrhea, Vomiting Past Patient History - Infectious Disease Hx of Infectious Diseases: None - Tetanus Immunizations Tetanus Immunization: Unknown - Past Medical History & Family History Past Medical History?: Yes - Past Social History Smoking Status: Never Smoked - CARDIAC Hx Congestive Heart Failure: Yes Hx Hypercholesterolemia: Yes Hx Hypertension: Yes - PULMONARY Hx Pneumonia: Yes - NEUROLOGICAL Hx Alzheimer's Disease: Yes Hx Dementia: Yes Hx Migraine: Yes Hx Transient Ischemic Attacks (TIA): Yes (2013) - HEENT Hx HEENT Problems: Yes Hx Cataracts: Yes (s/p surgery) Hx Glaucoma: Yes Other/Comment: Hx legally blind. Hx Diabetic Retinopathy - RENAL Hx Chronic Kidney Disease: No - ENDOCRINE/METABOLIC Hx Hypothyroidism: Yes - HEMATOLOGICAL/ONCOLOGICAL Hx Anemia: Yes Hx Human Immunodeficiency Virus (HIV): No - INTEGUMENTARY Hx Dermatological Problems: No - MUSCULOSKELETAL/RHEUMATOLOGICAL Hx Arthritis: No Hx Fractures: Yes (rt wrist/elbow) - GASTROINTESTINAL Hx Diverticulitis: Yes (Diverticulosis) Hx Gastritis: Yes - GENITOURINARY/GYNECOLOGICAL Hx Genitourinary Disorders: Yes Hx Urinary Tract Infection: Yes Other/Comment: left breast cyst - PSYCHIATRIC Hx Anxiety: Yes Hx Depression: Yes - SURGICAL HISTORY Hx Coronary Artery Bypass Graft: No Hx Tonsillectomy: Yes (partial thyroidectomy) - ANESTHESIA Hx Anesthesia: Yes Hx Anesthesia Reactions: Yes (HALLUCINATION, CONFUSION) Hx Malignant Hyperthermia: No Meds Allergies/Adverse Reactions: Allergies Allergy/AdvReac Type Severity Reaction Status Date / Time aspirin Allergy NAUSEA Verified 05/13/17 09:32 Sulfa (Sulfonamide Allergy RASH Verified 05/13/17 09:32 Antibiotics) Iodinated Contrast- Oral and AdvReac VOMITING Verified 05/13/17 09:32 IV Dye metformin AdvReac DIARRHEA Verified 05/13/17 09:32 Physical Exam - Constitutional Appears: No Acute Distress - Head Exam Head Exam: ATRAUMATIC, NORMOCEPHALIC - Eye Exam Additional comments: Mild B/l conjunctival injection - Respiratory Exam Respiratory Exam: Decreased Breath Sounds, Rales (Left lung base decreased breath sound and rales. ). absent: Rhonchi, Wheezes - Cardiovascular Exam Cardiovascular Exam: REGULAR RHYTHM, +S1, +S2 - GI/Abdominal Exam GI & Abdominal Exam: Normal Bowel Sounds, Soft. absent: Rebound - Extremities Exam Extremities exam: Positive for: normal inspection. Negative for: pedal edema, tenderness - Back Exam Back exam: NORMAL INSPECTION - Neurological Exam Neurological exam: Alert, Oriented x3 - Psychiatric Exam Psychiatric exam: Normal Mood - Skin Skin Exam: Intact Results - Vital Signs Recent Vital Signs: Last Vital Signs Temp 99.6 F 06/10/17 13:42 Pulse 104 H 06/10/17 14:37 Resp 18 06/10/17 13:42 BP 105/59 L 06/10/17 13:42 Pulse Ox 96 06/10/17 14:37 - Labs Result Diagrams: 06/10/17 11:48 06/10/17 11:48 Labs: Laboratory Results - last 24 hr 06/10/17 06/10/17 06/10/17 11:16 11:48 11:48 WBC 13.2 H D RBC 4.45 Hgb 13.1 D Hct 40.8 MCV 91.7 D MCH 29.4 MCHC 32.1 L RDW 14.5 Plt Count 368 MPV 9.3 Neut % (Auto) 89.4 H Lymph % (Auto) 2.3 L Nash % (Auto) 7.7 Eos % (Auto) 0.4 Baso % (Auto) 0.2 Neut # 11.8 H Lymph # 0.3 L Nash # 1.0 H Eos # 0.0 Baso # 0.0 Neutrophils % (Manual) 86 H Band Neutrophils % 2 Lymphocytes % (Manual) 4 L Monocytes % (Manual) 7 Myelocytes % 1 H Toxic Granulation Present Platelet Estimate Normal RBC Morphology Normal PT INR APTT pO2 VBG pH VBG pCO2 VBG HCO3 VBG Total CO2 VBG O2 Sat (Calc) VBG Base Excess VBG Potassium A-a O2 Difference Glucose Lactate FiO2 Blood Gas Comments Crit Value Called To Crit Value Called By Crit Value Read Back Blood Gas Notified Time Sodium 139 Potassium 4.4 Chloride 104 Carbon Dioxide 22 Anion Gap 17 BUN 25 H Creatinine 1.5 H Est GFR ( Amer) 40 Est GFR (Non-Af Amer) 33 POC Glucose (mg/dL) 192 H Random Glucose 249 H Calcium 9.9 Total Bilirubin 0.6 AST 42 H ALT 49 Alkaline Phosphatase 100 Troponin I < 0.0120 Total Protein 8.8 H Albumin 4.6 Globulin 4.1 H Albumin/Globulin Ratio 1.1 Lipase 148 Venous Blood Potassium C. difficile Ag & Toxin Blood Type Antibody Screen BBK History Checked 06/10/17 06/10/17 06/10/17 11:48 11:48 13:08 WBC RBC Hgb Hct MCV MCH MCHC RDW Plt Count MPV Neut % (Auto) Lymph % (Auto) Nash % (Auto) Eos % (Auto) Baso % (Auto) Neut # Lymph # Nash # Eos # Baso # Neutrophils % (Manual) Band Neutrophils % Lymphocytes % (Manual) Monocytes % (Manual) Myelocytes % Toxic Granulation Platelet Estimate RBC Morphology PT 11.7 INR 1.1 APTT 28.5 pO2 28 L VBG pH 7.33 VBG pCO2 46 VBG HCO3 22.2 VBG Total CO2 25.7 VBG O2 Sat (Calc) 58.0 VBG Base Excess -2.0 L VBG Potassium 4.6 A-a O2 Difference 64.0 Glucose 261 H Lactate 3.2 H FiO2 21.0 Blood Gas Comments Vbg Crit Value Called To Tj [email or web address] Crit Value Called By 15 Crit Value Read Back Y Blood Gas Notified Time 1327 Sodium 140.0 Potassium Chloride 107.0 Carbon Dioxide Anion Gap BUN Creatinine Est GFR ( Amer) Est GFR (Non-Af Amer) POC Glucose (mg/dL) Random Glucose Calcium Total Bilirubin AST ALT Alkaline Phosphatase Troponin I Total Protein Albumin Globulin Albumin/Globulin Ratio Lipase Venous Blood Potassium 4.6 C. difficile Ag & Toxin Blood Type A POSITIVE Antibody Screen Negative BBK History Checked Patient has bt 06/10/17 06/10/17 15:00 15:30 WBC RBC Hgb Hct MCV MCH MCHC RDW Plt Count MPV Neut % (Auto) Lymph % (Auto) Nash % (Auto) Eos % (Auto) Baso % (Auto) Neut # Lymph # Nash # Eos # Baso # Neutrophils % (Manual) Band Neutrophils % Lymphocytes % (Manual) Monocytes % (Manual) Myelocytes % Toxic Granulation Platelet Estimate RBC Morphology PT INR APTT pO2 24 L VBG pH 7.28 L VBG pCO2 52 VBG HCO3 20.9 VBG Total CO2 26.0 VBG O2 Sat (Calc) 39.6 L VBG Base Excess -3.0 L VBG Potassium 4.6 A-a O2 Difference Glucose 230 H Lactate 3.5 H FiO2 21.0 Blood Gas Comments Crit Value Called To Crit Value Called By Crit Value Read Back Blood Gas Notified Time Sodium 139.0 Potassium Chloride 110.0 H Carbon Dioxide Anion Gap BUN Creatinine Est GFR ( Amer) Est GFR (Non-Af Amer) POC Glucose (mg/dL) Random Glucose Calcium Total Bilirubin AST ALT Alkaline Phosphatase Troponin I Total Protein Albumin Globulin Albumin/Globulin Ratio Lipase Venous Blood Potassium 4.6 C. difficile Ag & Toxin Negative Blood Type Antibody Screen BBK History Checked Assessment & Plan (1) Acute upper GI bleed Status: Acute Comment: Gi Consult suggested (2) HAP (hospital-acquired pneumonia) Status: Acute Comment: -recent hospitalization. -CT left lower lobe infiltrate. -c/w vanco, zosyn (3) Sepsis Status: Acute (4) Gastroenteritis Assessment and Plan: Hydration Pantoprazol zofran Status: Acute (5) DVT prophylaxis Assessment and Plan: Lovenox Status: Acute
[2017-06-10] MEDS ORDERED: Patient's Own Med (Brimonidine Tartrate/Timolol [Combigan 0.2%-0.5% Eye Drops] 1 DROP) BOTHEYES SCH (17:00)
[2017-06-10] MEDS: Sodium Chloride 0.9% 1,000 ML IV SCH (17:36)
[2017-06-10] MEDS: Insulin Lispro (humaLOG) 100 Units/ml Inj SC SCH ×2 (17:36→22:45)
[2017-06-10] MEDS: Brimonidine 0.2% 50 DROP/5 ML BOTTLE OU SCH (17:42)
[2017-06-10] MEDS: Latanoprost 0.005% Opht SOUTION OU SCH (21:19)
[2017-06-10] MEDS: Piperacillin/Tazobact 3.375 GM in Sodium Chloride 0.9% 100 ML IVPB SCH (21:19)
[2017-06-11] MEDS: Sodium Chloride 0.9% 1,000 ML IV SCH ×3 (02:00→17:54)
[2017-06-11] MEDS: Piperacillin/Tazobact 3.375 GM in Sodium Chloride 0.9% 100 ML IVPB SCH ×4 (04:07→21:13)
[2017-06-11 05:34] LABS: BASO % 0.1 % (0.0-2.0); HEMATOCRIT 31.3 % (34.0-47.0); LYMPH # 0.8 K/uL (1.0-4.3); MEAN CELL VOLUME 91.9 fl (81.0-99.0); MEAN CORPUSCULAR HGB CONC 31.5 g/dL (33.0-37.0); MEAN PLATELET VOLUME 9.9 fl (7.2-11.7); MONO % 9.4 % (0.0-10.0); NEUT % 86.5 % (50.0-75.0); RED CELL DISTRIBUTION WIDTH 14.6 % (11.5-14.5); WHITE BLOOD COUNT 20.9 K/uL (4.8-10.8)
[2017-06-11 05:54] LABS: PARTIAL THROMBOPLASTIN TIME 27.9 Seconds (25.6-37.1)
[2017-06-11 06:00] LABS: BILIRUBIN,TOTAL 0.4 mg/dl (0.2-1.3); POTASSIUM 4.2 MMOL/L (3.6-5.0); TOTAL PROTEIN 6.6 G/DL (6.3-8.2)
[2017-06-11] MEDS: Levothyroxine 75 MCG TAB PO SCH (06:11)
[2017-06-11] MEDS ORDERED: Enoxaparin 40 mg Syringe SC SCH (09:00)
--- NOTE | 2017-06-11 09:20 | CP.PCM.PN ---
Subjective - Date & Time of Evaluation Date of Evaluation: 06/11/17 Time of Evaluation: 07:10 - Subjective Subjective: Patient seen and examined bedside with Dr Ferraro. Patient on NPO requesting water. Denies vomiting, diarrhea since admission. GI consult appreciated. no active bleeding. swallow test for today Objective - Vital Signs/Intake and Output Vital Signs (last 24 hours): Temp Pulse Resp BP Pulse Ox 96.8 F L 86 20 158/70 H 95 06/11/17 08:00 06/11/17 08:00 06/11/17 08:00 06/11/17 08:00 06/11/17 08:00 - Medications Medications: Current Medications Brimonidine Tartrate (Alphagan 0.2% Opht) 1 drop OU BID KIMMY Last Admin: 06/10/17 17:42 Dose: 1 drop Dextrose (Dextrose 50% Inj) 0 ml IV STAT PRN; Protocol PRN Reason: Hypoglycemia Protocol Dextrose (Glutose 15) 0 gm PO ONCE PRN; Protocol PRN Reason: Hypoglycemia Protocol Donepezil HCl (Aricept) 10 mg PO HS KIMMY Last Admin: 06/10/17 21:19 Dose: 10 mg Enoxaparin Sodium (Lovenox) 40 mg SC DAILY KIMMY PRN Reason: Protocol Furosemide (Lasix) 20 mg IVP DAILY KIMMY Glucagon (Glucagen Diagnostic Kit) 0 mg IM STAT PRN; Protocol PRN Reason: Hypoglycemia Protocol Sodium Chloride (Sodium Chloride 0.9%) 1,000 mls @ 115 mls/hr IV .[id number] KIMMY Stop: 06/11/17 15:40 Last Admin: 06/11/17 04:09 Dose: 115 mls/hr Vancomycin HCl 1,250 mg/ (Sodium Chloride) 250 mls @ 166.667 mls/hr IVPB Q24H KIMMY PRN Reason: Protocol Piperacillin Sod/Tazobactam (Sod 3.375 gm/ Sodium Chloride) 100 mls @ 100 mls/ hr IVPB Q6 KIMMY PRN Reason: Protocol Last Admin: 06/11/17 04:07 Dose: 100 mls/hr Insulin Human Lispro (Humalog) 0 units SC ACHS KIMMY PRN Reason: Protocol Last Admin: 06/10/17 22:45 Dose: Not Given Latanoprost (Xalatan Opht) 1 drop OU HS KIMMY Last Admin: 06/10/17 21:19 Dose: 1 drop Levothyroxine Sodium (Synthroid) 75 mcg PO DAILY@0630 [facility] Last Admin: 06/11/17 06:11 Dose: 75 mcg Memantine (Namenda) 10 mg PO BID [facility] Last Admin: 06/10/17 17:37 Dose: Not Given Metronidazole (Flagyl) 500 mg PO Q8 [facility] PRN Reason: Protocol Last Admin: 06/11/17 00:43 Dose: 500 mg Ondansetron HCl (Zofran Inj) 4 mg IVP Q6 PRN PRN Reason: Nausea/Vomiting Pantoprazole Sodium (Protonix Inj) 40 mg IVP DAILY [facility] Timolol Maleate (Timoptic 0.5% Oph Soln) 1 drop OU BID [facility] Last Admin: 06/10/17 17:43 Dose: 1 drop - Labs Labs: 06/11/17 04:30 06/11/17 04:30 PT 13.3 Seconds (9.8-13.1) H 06/11/17 04:30 INR 1.2 (0.9-1.2) 06/11/17 04:30 APTT 27.9 Seconds (25.6-37.1) 06/11/17 04:30 - Constitutional Appears: No Acute Distress - Head Exam Head Exam: ATRAUMATIC, NORMOCEPHALIC - Eye Exam Eye Exam: Normal appearance - ENT Exam ENT Exam: Mucous Membranes Moist - Neck Exam Neck Exam: Normal Inspection - Respiratory Exam Respiratory Exam: Decreased Breath Sounds, Rales Additional comments: left lung base - Cardiovascular Exam Cardiovascular Exam: REGULAR RHYTHM, +S1, +S2 - GI/Abdominal Exam GI & Abdominal Exam: Soft, Normal Bowel Sounds. absent: Tenderness, Rebound - Extremities Exam Extremities Exam: Normal Inspection. absent: Pedal Edema - Back Exam Back Exam: NORMAL INSPECTION - Neurological Exam Neurological Exam: Alert, Awake - Psychiatric Exam Psychiatric exam: Normal Affect - Skin Skin Exam: Intact Assessment and Plan (1) Acute upper GI bleed Status: Acute (2) HAP (hospital-acquired pneumonia) Status: Acute (3) Sepsis Status: Acute (4) Gastroenteritis Status: Acute (5) DVT prophylaxis Status: Acute - Assessment and Plan (Free Text) Plan: Assessment & Plan (1) Severe Sepsis -secondary to PNA -lactic acid normal today -leukocytosis trending up (2) Acute upper GI bleed -resolved -swallowing test and liquid diet after GI Consult appreciated. no active bleeding (3) HAP (hospital-acquired pneumonia) Status: Acute Comment: -recent hospitalization. -CT left lower lobe infiltrate. -c/w rochelle crocker (4) Gastroenteritis -resolved Hydration Pantoprazol zofran Status: Acute (5) systolic CHF exacerbation -Echo 05/23/17 EF 40-45 % Mod Ao stenosis -lasix (5) DVT prophylaxis Assessment and Plan: Lovenox Status: Acute
[2017-06-11 09:46] LABS: IRON 17 ug/dL (37-170)
[2017-06-11] MEDS: Brimonidine 0.2% 50 DROP/5 ML BOTTLE OU SCH ×2 (10:17→17:50)
[2017-06-11] MEDS: Insulin Lispro (humaLOG) 100 Units/ml Inj SC SCH ×4 (10:20→21:17)
--- NOTE | 2017-06-11 10:45 | CP.PCM.CON ---
<Di Rojas - Last Filed: 06/11/17 11:03> History of Present Illness - History of Present Illness History of Present Illness: Gastroenterology Fellow/PGY5 Consult Note 81 year old female with history of Dementia, Blindness, DM, HTN, HLD, Hypothyroidism, and sCHF EF 40-45% (05/23/17) presenting with documented coffee- ground emesis. Patient oriented to person and place. Admits to mid abdominal pain. Notes she has recently vomited but unable to quantify. Denies fever, chills, sweats, or diarrhea. On record review, endorsed to have over ten episodes of coffee-ground emesis. Nursing staff denies vomiting since admission. Recent antibiotics on discharge 05/28/17 for Pseudomonas UTI. Active treatment of severe sepsis secondary to hospital acquired pneumonia. Prior EGD showed esophagitis, H pylori negative gastritis, duodenitis, and villous shortening. Family- unable to confirm Social-unable to confirm, record review- no tobacco,alcohol, illicit drug use Surgery-unable to confirm, record review- B/L cornea implant Review of Systems - Review of Systems Review of Systems: 12-point review of systems negative except for as above Past Patient History - Infectious Disease Hx of Infectious Diseases: None - Tetanus Immunizations Tetanus Immunization: Unknown - Past Medical History & Family History Past Medical History?: Yes - Past Social History Smoking Status: Never Smoked - CARDIAC Hx Congestive Heart Failure: Yes Hx Hypercholesterolemia: Yes Hx Hypertension: Yes - PULMONARY Hx Pneumonia: Yes - NEUROLOGICAL Hx Alzheimer's Disease: Yes Hx Dementia: Yes Hx Migraine: Yes Hx Transient Ischemic Attacks (TIA): Yes (2013) - HEENT Hx HEENT Problems: Yes Hx Cataracts: Yes (s/p surgery) Hx Glaucoma: Yes Other/Comment: Hx legally blind. Hx Diabetic Retinopathy - RENAL Hx Chronic Kidney Disease: No - ENDOCRINE/METABOLIC Hx Hypothyroidism: Yes - HEMATOLOGICAL/ONCOLOGICAL Hx Anemia: Yes Hx Human Immunodeficiency Virus (HIV): No - INTEGUMENTARY Hx Dermatological Problems: No - MUSCULOSKELETAL/RHEUMATOLOGICAL Hx Arthritis: No Hx Fractures: Yes (rt wrist/elbow) - GASTROINTESTINAL Hx Diverticulitis: Yes (Diverticulosis) Hx Gastritis: Yes - GENITOURINARY/GYNECOLOGICAL Hx Genitourinary Disorders: Yes Hx Urinary Tract Infection: Yes Other/Comment: left breast cyst - PSYCHIATRIC Hx Anxiety: Yes Hx Depression: Yes - SURGICAL HISTORY Hx Coronary Artery Bypass Graft: No Hx Tonsillectomy: Yes (partial thyroidectomy) - ANESTHESIA Hx Anesthesia: Yes Hx Anesthesia Reactions: Yes (HALLUCINATION, CONFUSION) Hx Malignant Hyperthermia: No Meds Allergies/Adverse Reactions: Allergies Allergy/AdvReac Type Severity Reaction Status Date / Time aspirin Allergy NAUSEA Verified 05/13/17 09:32 Sulfa (Sulfonamide Allergy RASH Verified 05/13/17 09:32 Antibiotics) Iodinated Contrast- Oral and AdvReac VOMITING Verified 05/13/17 09:32 IV Dye metformin AdvReac DIARRHEA Verified 05/13/17 09:32 - Medications Medications: Current Medications Brimonidine Tartrate (Alphagan 0.2% Opht) 1 drop OU BID KIMMY Last Admin: 06/11/17 10:17 Dose: 1 drop Dextrose (Dextrose 50% Inj) 0 ml IV STAT PRN; Protocol PRN Reason: Hypoglycemia Protocol Dextrose (Glutose 15) 0 gm PO ONCE PRN; Protocol PRN Reason: Hypoglycemia Protocol Donepezil HCl (Aricept) 10 mg PO HS KIMMY Last Admin: 06/10/17 21:19 Dose: 10 mg Enoxaparin Sodium (Lovenox) 40 mg SC DAILY KIMMY PRN Reason: Protocol Furosemide (Lasix) 20 mg IVP DAILY KIMMY Last Admin: 06/11/17 10:34 Dose: 20 mg Glucagon (Glucagen Diagnostic Kit) 0 mg IM STAT PRN; Protocol PRN Reason: Hypoglycemia Protocol Sodium Chloride (Sodium Chloride 0.9%) 1,000 mls @ 115 mls/hr IV .Q8H42M KIMMY Stop: 06/11/17 15:40 Last Admin: 06/11/17 04:09 Dose: 115 mls/hr Vancomycin HCl 1,250 mg/ (Sodium Chloride) 250 mls @ 166.667 mls/hr IVPB Q24H KIMMY PRN Reason: Protocol Piperacillin Sod/Tazobactam (Sod 3.375 gm/ Sodium Chloride) 100 mls @ 100 mls/ hr IVPB Q6 KIMMY PRN Reason: Protocol Last Admin: 06/11/17 10:27 Dose: 100 mls/hr Insulin Human Lispro (Humalog) 0 units SC ACHS KIMMY PRN Reason: Protocol Last Admin: 06/11/17 10:20 Dose: 3 units Latanoprost (Xalatan Opht) 1 drop OU HS KIMMY Last Admin: 12/19/17 21:19 Dose: 1 drop Levothyroxine Sodium (Synthroid) 75 mcg PO DAILY@0630 [facility] Last Admin: 06/11/17 06:11 Dose: 75 mcg Memantine (Namenda) 10 mg PO BID [facility] Last Admin: 06/11/17 10:22 Dose: 10 mg Metronidazole (Flagyl) 500 mg PO Q8 KIMMY PRN Reason: Protocol Last Admin: 06/11/17 10:19 Dose: 500 mg Ondansetron HCl (Zofran Inj) 4 mg IVP Q6 PRN PRN Reason: Nausea/Vomiting Pantoprazole Sodium (Protonix Inj) 40 mg IVP DAILY [facility] Last Admin: 06/11/17 10:23 Dose: 40 mg Timolol Maleate (Timoptic 0.5% Oph Soln) 1 drop OU BID [facility] Last Admin: 06/11/17 10:25 Dose: 1 drop Physical Exam - Constitutional Appears: Non-toxic, No Acute Distress - Head Exam Head Exam: ATRAUMATIC, NORMOCEPHALIC - Eye Exam Eye Exam: EOMI, PERRL Pupil Exam: PERRL. absent: Miosis, Mydriatic - ENT Exam ENT Exam: Mucous Membranes Moist, Normal Oropharynx - Neck Exam Neck exam: Positive for: Full Rom, Normal Inspection - Respiratory Exam Respiratory Exam: Clear to Auscultation Bilateral. absent: Rales, Rhonchi, Wheezes - Cardiovascular Exam Cardiovascular Exam: RRR, +S1, +S2. absent: Gallop, Rubs - GI/Abdominal Exam GI & Abdominal Exam: Normal Bowel Sounds, Soft, Tenderness. absent: Distended, Firm, Guarding, Organomegaly, Rebound, Rigid Additional comments: mild mid abdominal discomfort to palpation - Rectal Exam Rectal Exam: absent: Black Stool, Bloody Stool Additional comments: liquid light brown stool on bed padding - Extremities Exam Extremities exam: Positive for: normal inspection. Negative for: pedal edema - Neurological Exam Neurological exam: Alert - Psychiatric Exam Psychiatric exam: Normal Affect, Normal Mood - Skin Skin Exam: Dry, Intact, Normal Color, Warm Results - Vital Signs Recent Vital Signs: Last Vital Signs Temp 96.8 F L 06/11/17 08:00 Pulse 86 06/11/17 08:00 Resp 20 06/11/17 08:00 BP 158/70 H 06/11/17 10:34 Pulse Ox 95 06/11/17 08:00 - Labs Result Diagrams: 06/11/17 04:30 06/11/17 04:30 Labs: Laboratory Results - last 24 hr 06/10/17 06/10/17 06/10/17 11:16 11:48 11:48 WBC 13.2 H D RBC 4.45 Hgb 13.1 D Hct 40.8 MCV 91.7 D MCH 29.4 MCHC 32.1 L RDW 14.5 Plt Count 368 MPV 9.3 Neut % (Auto) 89.4 H Lymph % (Auto) 2.3 L [place] % (Auto) 7.7 Eos % (Auto) 0.4 Baso % (Auto) 0.2 Neut # 11.8 H Lymph # 0.3 L [place] # 1.0 H Eos # 0.0 Baso # 0.0 Neutrophils % (Manual) 86 H Band Neutrophils % 2 Lymphocytes % (Manual) 4 L Monocytes % (Manual) 7 Myelocytes % 1 H Toxic Granulation Present Platelet Estimate Normal RBC Morphology Normal PT INR APTT pO2 VBG pH VBG pCO2 VBG HCO3 VBG Total CO2 VBG O2 Sat (Calc) VBG Base Excess VBG Potassium A-a O2 Difference Glucose Lactate FiO2 Blood Gas Comments Crit Value Called To Crit Value Called By Crit Value Read Back Blood Gas Notified Time Sodium 139 Potassium 4.4 Chloride 104 Carbon Dioxide 22 Anion Gap 17 BUN 25 H Creatinine 1.5 H Est GFR ( Amer) 40 Est GFR (Non-Af Amer) 33 POC Glucose (mg/dL) 192 H Random Glucose 249 H Lactic Acid Calcium 9.9 Iron TIBC % Saturation Ferritin Total Bilirubin 0.6 AST 42 H ALT 49 Alkaline Phosphatase 100 Troponin I < 0.0120 NT-Pro-B Natriuret Pep Total Protein 8.8 H Albumin 4.6 Globulin 4.1 H Albumin/Globulin Ratio 1.1 Lipase 148 Venous Blood Potassium Urine Color Urine Clarity Urine pH Ur Specific [place] Urine Protein Urine Glucose (UA) Urine Ketones Urine Blood Urine Nitrate Urine Bilirubin Urine Urobilinogen Ur Leukocyte Esterase Urine RBC (Auto) Urine WBC Clumps (Auto) Urine Microscopic WBC Ur Squamous Epith Cells Ur Transition Epith Cell Ur Renal Epithelial Cell Calcium Carbonate Cryst Calcium Phos Namrata (Auto) Calcium Oxalate Crystal Leucine Crystals Cystine Crystals Uric Acid Crystals Triple Phos Crystals Tyrosine Crystals Other Crystals Amorphous Sediment Urine Bacteria Epithelial Casts (Auto) Fatty Casts Hyaline Casts Granular Casts (Auto) Waxy Casts Broad Casts RBC Casts WBC Casts Other Casts Urine Trichomonas Ur Yeast w Hyphae Urine Yeast (Budding) Urine Sperm (Auto) Ur Oval Fat Bodies Auto Stool Occult Blood C. difficile Ag & Toxin Blood Type Antibody Screen BBK History Checked 06/10/17 06/10/17 06/10/17 11:48 11:48 13:08 WBC RBC Hgb Hct MCV MCH MCHC RDW Plt Count MPV Neut % (Auto) Lymph % (Auto) [place] % (Auto) Eos % (Auto) Baso % (Auto) Neut # Lymph # [place] # Eos # Baso # Neutrophils % (Manual) Band Neutrophils % Lymphocytes % (Manual) Monocytes % (Manual) Myelocytes % Toxic Granulation Platelet Estimate RBC Morphology PT 11.7 INR 1.1 APTT 28.5 pO2 28 L VBG pH 7.33 VBG pCO2 46 VBG HCO3 22.2 VBG Total CO2 25.7 VBG O2 Sat (Calc) 58.0 VBG Base Excess -2.0 L VBG Potassium 4.6 A-a O2 Difference 64.0 Glucose 261 H Lactate 3.2 H FiO2 21.0 Blood Gas Comments Vbg Crit Value Called To Tj rodriguez Crit Value Called By 15 Crit Value Read Back Y Blood Gas Notified Time 1327 Sodium 140.0 Potassium Chloride 107.0 Carbon Dioxide Anion Gap BUN Creatinine Est GFR ( Amer) Est GFR (Non-Af Amer) POC Glucose (mg/dL) Random Glucose Lactic Acid Calcium Iron TIBC % Saturation Ferritin Total Bilirubin AST ALT Alkaline Phosphatase Troponin I NT-Pro-B Natriuret Pep Total Protein Albumin Globulin Albumin/Globulin Ratio Lipase Venous Blood Potassium 4.6 Urine Color Urine Clarity Urine pH Ur Specific [place] Urine Protein Urine Glucose (UA) Urine Ketones Urine Blood Urine Nitrate Urine Bilirubin Urine Urobilinogen Ur Leukocyte Esterase Urine RBC (Auto) Urine WBC Clumps (Auto) Urine Microscopic WBC Ur Squamous Epith Cells Ur Transition Epith Cell Ur Renal Epithelial Cell Calcium Carbonate Cryst Calcium Phos Namrata (Auto) Calcium Oxalate Crystal Leucine Crystals Cystine Crystals Uric Acid Crystals Triple Phos Crystals Tyrosine Crystals Other Crystals Amorphous Sediment Urine Bacteria Epithelial Casts (Auto) Fatty Casts Hyaline Casts Granular Casts (Auto) Waxy Casts Broad Casts RBC Casts WBC Casts Other Casts Urine Trichomonas Ur Yeast w Hyphae Urine Yeast (Budding) Urine Sperm (Auto) Ur Oval Fat Bodies Auto Stool Occult Blood C. difficile Ag & Toxin Blood Type A POSITIVE Antibody Screen Negative BBK History Checked Patient has bt 06/10/17 06/10/17 06/10/17 14:00 15:00 15:30 WBC RBC Hgb Hct MCV MCH MCHC RDW Plt Count MPV Neut % (Auto) Lymph % (Auto) [place] % (Auto) Eos % (Auto) Baso % (Auto) Neut # Lymph # [place] # Eos # Baso # Neutrophils % (Manual) Band Neutrophils % Lymphocytes % (Manual) Monocytes % (Manual) Myelocytes % Toxic Granulation Platelet Estimate RBC Morphology PT INR APTT pO2 24 L VBG pH 7.28 L VBG pCO2 52 VBG HCO3 20.9 VBG Total CO2 26.0 VBG O2 Sat (Calc) 39.6 L VBG Base Excess -3.0 L VBG Potassium 4.6 A-a O2 Difference Glucose 230 H Lactate 3.5 H FiO2 21.0 Blood Gas Comments Crit Value Called To Crit Value Called By Crit Value Read Back Blood Gas Notified Time Sodium 139.0 Potassium Chloride 110.0 H Carbon Dioxide Anion Gap BUN Creatinine Est GFR ( Amer) Est GFR (Non-Af Amer) POC Glucose (mg/dL) Random Glucose Lactic Acid Calcium Iron TIBC % Saturation Ferritin Total Bilirubin AST ALT Alkaline Phosphatase Troponin I NT-Pro-B Natriuret Pep Total Protein Albumin Globulin Albumin/Globulin Ratio Lipase Venous Blood Potassium 4.6 Urine Color Cancelled Urine Clarity Cancelled Urine pH Cancelled Ur Specific [place] Cancelled Urine Protein Cancelled Urine Glucose (UA) Cancelled Urine Ketones Cancelled Urine Blood Cancelled Urine Nitrate Cancelled Urine Bilirubin Cancelled Urine Urobilinogen Cancelled Ur Leukocyte Esterase Cancelled Urine RBC (Auto) Cancelled Urine WBC Clumps (Auto) Cancelled Urine Microscopic WBC Cancelled Ur Squamous Epith Cells Cancelled Ur Transition Epith Cell Cancelled Ur Renal Epithelial Cell Cancelled Calcium Carbonate Cryst Cancelled Calcium Phos Namrata (Auto) Cancelled Calcium Oxalate Crystal Cancelled Leucine Crystals Cancelled Cystine Crystals Cancelled Uric Acid Crystals Cancelled Triple Phos Crystals Cancelled Tyrosine Crystals Cancelled Other Crystals Cancelled Amorphous Sediment Cancelled Urine Bacteria Cancelled Epithelial Casts (Auto) Cancelled Fatty Casts Cancelled Hyaline Casts Cancelled Granular Casts (Auto) Cancelled Waxy Casts Cancelled Broad Casts Cancelled RBC Casts Cancelled WBC Casts Cancelled Other Casts Cancelled Urine Trichomonas Cancelled Ur Yeast w Hyphae Cancelled Urine Yeast (Budding) Cancelled Urine Sperm (Auto) Cancelled Ur Oval Fat Bodies Auto Cancelled Stool Occult Blood Negative C. difficile Ag & Toxin Negative Blood Type Antibody Screen BBK History Checked 06/10/17 06/10/17 06/11/17 17:30 21:52 04:30 WBC 20.9 H D RBC 3.40 L Hgb 9.9 L D Hct 31.3 L MCV 91.9 MCH 29.0 MCHC 31.5 L RDW 14.6 H Plt Count 268 D MPV 9.9 Neut % (Auto) 86.5 H Lymph % (Auto) 4.0 L [place] % (Auto) 9.4 Eos % (Auto) 0.0 Baso % (Auto) 0.1 Neut # 18.0 H Lymph # 0.8 L [place] # 2.0 H Eos # 0.0 Baso # 0.0 Neutrophils % (Manual) Band Neutrophils % Lymphocytes % (Manual) Monocytes % (Manual) Myelocytes % Toxic Granulation Platelet Estimate RBC Morphology PT INR APTT pO2 VBG pH VBG pCO2 VBG HCO3 VBG Total CO2 VBG O2 Sat (Calc) VBG Base Excess VBG Potassium A-a O2 Difference Glucose Lactate FiO2 Blood Gas Comments Crit Value Called To Crit Value Called By Crit Value Read Back Blood Gas Notified Time Sodium Potassium Chloride Carbon Dioxide Anion Gap BUN Creatinine Est GFR ( Amer) Est GFR (Non-Af Amer) POC Glucose (mg/dL) 193 H 240 H Random Glucose Lactic Acid Calcium Iron TIBC % Saturation Ferritin Total Bilirubin AST ALT Alkaline Phosphatase Troponin I NT-Pro-B Natriuret Pep Total Protein Albumin Globulin Albumin/Globulin Ratio Lipase Venous Blood Potassium Urine Color Urine Clarity Urine pH Ur Specific [place] Urine Protein Urine Glucose (UA) Urine Ketones Urine Blood Urine Nitrate Urine Bilirubin Urine Urobilinogen Ur Leukocyte Esterase Urine RBC (Auto) Urine WBC Clumps (Auto) Urine Microscopic WBC Ur Squamous Epith Cells Ur Transition Epith Cell Ur Renal Epithelial Cell Calcium Carbonate Cryst Calcium Phos Namrata (Auto) Calcium Oxalate Crystal Leucine Crystals Cystine Crystals Uric Acid Crystals Triple Phos Crystals Tyrosine Crystals Other Crystals Amorphous Sediment Urine Bacteria Epithelial Casts (Auto) Fatty Casts Hyaline Casts Granular Casts (Auto) Waxy Casts Broad Casts RBC Casts WBC Casts Other Casts Urine Trichomonas Ur Yeast w Hyphae Urine Yeast (Budding) Urine Sperm (Auto) Ur Oval Fat Bodies Auto Stool Occult Blood C. difficile Ag & Toxin Blood Type Antibody Screen BBK History Checked 06/11/17 06/11/17 06/11/17 04:30 04:30 04:30 WBC RBC Hgb Hct MCV MCH MCHC RDW Plt Count MPV Neut % (Auto) Lymph % (Auto) [place] % (Auto) Eos % (Auto) Baso % (Auto) Neut # Lymph # [place] # Eos # Baso # Neutrophils % (Manual) Band Neutrophils % Lymphocytes % (Manual) Monocytes % (Manual) Myelocytes % Toxic Granulation Platelet Estimate RBC Morphology PT 13.3 H INR 1.2 APTT 27.9 pO2 VBG pH VBG pCO2 VBG HCO3 VBG Total CO2 VBG O2 Sat (Calc) VBG Base Excess VBG Potassium A-a O2 Difference Glucose Lactate FiO2 Blood Gas Comments Crit Value Called To Crit Value Called By Crit Value Read Back Blood Gas Notified Time Sodium 141 Potassium 4.2 Chloride 107 Carbon Dioxide 21 L Anion Gap 17 BUN 33 H Creatinine 1.1 Est GFR ( Amer) 57 Est GFR (Non-Af Amer) 47 POC Glucose (mg/dL) Random Glucose 239 H Lactic Acid 1.5 Calcium 8.0 L Iron TIBC % Saturation Ferritin Total Bilirubin 0.4 AST 26 ALT 42 Alkaline Phosphatase 62 Troponin I NT-Pro-B Natriuret Pep 4030 H Total Protein 6.6 Albumin 3.3 L D Globulin 3.3 Albumin/Globulin Ratio 1.0 Lipase Venous Blood Potassium Urine Color Urine Clarity Urine pH Ur Specific [place] Urine Protein Urine Glucose (UA) Urine Ketones Urine Blood Urine Nitrate Urine Bilirubin Urine Urobilinogen Ur Leukocyte Esterase Urine RBC (Auto) Urine WBC Clumps (Auto) Urine Microscopic WBC Ur Squamous Epith Cells Ur Transition Epith Cell Ur Renal Epithelial Cell Calcium Carbonate Cryst Calcium Phos Namrata (Auto) Calcium Oxalate Crystal Leucine Crystals Cystine Crystals Uric Acid Crystals Triple Phos Crystals Tyrosine Crystals Other Crystals Amorphous Sediment Urine Bacteria Epithelial Casts (Auto) Fatty Casts Hyaline Casts Granular Casts (Auto) Waxy Casts Broad Casts RBC Casts WBC Casts Other Casts Urine Trichomonas Ur Yeast w Hyphae Urine Yeast (Budding) Urine Sperm (Auto) Ur Oval Fat Bodies Auto Stool Occult Blood C. difficile Ag & Toxin Blood Type Antibody Screen BBK History Checked 06/11/17 06/11/17 09:16 09:16 WBC RBC Hgb Hct MCV MCH MCHC RDW Plt Count MPV Neut % (Auto) Lymph % (Auto) [place] % (Auto) Eos % (Auto) Baso % (Auto) Neut # Lymph # [place] # Eos # Baso # Neutrophils % (Manual) Band Neutrophils % Lymphocytes % (Manual) Monocytes % (Manual) Myelocytes % Toxic Granulation Platelet Estimate RBC Morphology PT INR APTT pO2 VBG pH VBG pCO2 VBG HCO3 VBG Total CO2 VBG O2 Sat (Calc) VBG Base Excess VBG Potassium A-a O2 Difference Glucose Lactate FiO2 Blood Gas Comments Crit Value Called To Crit Value Called By Crit Value Read Back Blood Gas Notified Time Sodium Potassium Chloride Carbon Dioxide Anion Gap BUN Creatinine Est GFR ( Amer) Est GFR (Non-Af Amer) POC Glucose (mg/dL) Random Glucose Lactic Acid Calcium Iron 17 L TIBC 253 % Saturation 7 L Ferritin 62.7 Total Bilirubin AST ALT Alkaline Phosphatase Troponin I NT-Pro-B Natriuret Pep Total Protein Albumin Globulin Albumin/Globulin Ratio Lipase Venous Blood Potassium Urine Color Urine Clarity Urine pH Ur Specific [place] Urine Protein Urine Glucose (UA) Urine Ketones Urine Blood Urine Nitrate Urine Bilirubin Urine Urobilinogen Ur Leukocyte Esterase Urine RBC (Auto) Urine WBC Clumps (Auto) Urine Microscopic WBC Ur Squamous Epith Cells Ur Transition Epith Cell Ur Renal Epithelial Cell Calcium Carbonate Cryst Calcium Phos Namrata (Auto) Calcium Oxalate Crystal Leucine Crystals Cystine Crystals Uric Acid Crystals Triple Phos Crystals Tyrosine Crystals Other Crystals Amorphous Sediment Urine Bacteria Epithelial Casts (Auto) Fatty Casts Hyaline Casts Granular Casts (Auto) Waxy Casts Broad Casts RBC Casts WBC Casts Other Casts Urine Trichomonas Ur Yeast w Hyphae Urine Yeast (Budding) Urine Sperm (Auto) Ur Oval Fat Bodies Auto Stool Occult Blood C. difficile Ag & Toxin Blood Type Antibody Screen BBK History Checked Assessment & Plan - Assessment and Plan (Free Text) Assessment: 81 year old female with history of Dementia, Blindness, DM, HTN, HLD, Hypothyroidism, recent antibiotics 05/28/17 for Pseudomonas UTI, and sCHF EF 40- 45% (05/23/17) presenting with documented coffee-ground emesis. Active treatment of severe sepsis secondary to hospital acquired pneumonia. Prior EGD showed esophagitis, H pylori negative gastritis, duodenitis, and villous shortening. Plan: >no recurrent vomiting >likely secondary to sepsis >Cdiff negative >FOBT negative >H/H at baseline >initially hemoconcentrated/dehydrated 2/2 sepsis and vomiting >no overt GI blood loss >supportive care: antiemetics, PPI, IVFs >on antibiotics for hospital acquired pneumonia >advance diet as tolerated >will follow clinic course <Edel Muñoz MD - Last Filed: 06/11/17 12:06> Meds - Medications Medications: Current Medications Brimonidine Tartrate (Alphagan 0.2% Opht) 1 drop OU BID [facility] Last Admin: 06/11/17 10:17 Dose: 1 drop Dextrose (Dextrose 50% Inj) 0 ml IV STAT PRN; Protocol PRN Reason: Hypoglycemia Protocol Dextrose (Glutose 15) 0 gm PO ONCE PRN; Protocol PRN Reason: Hypoglycemia Protocol Donepezil HCl (Aricept) 10 mg PO HS [facility] Last Admin: 06/10/17 21:19 Dose: 10 mg Enoxaparin Sodium (Lovenox) 40 mg SC DAILY KIMMY PRN Reason: Protocol Furosemide (Lasix) 20 mg IVP DAILY [facility] Last Admin: 06/11/17 10:34 Dose: 20 mg Glucagon (Glucagen Diagnostic Kit) 0 mg IM STAT PRN; Protocol PRN Reason: Hypoglycemia Protocol Sodium Chloride (Sodium Chloride 0.9%) 1,000 mls @ 115 mls/hr IV .Q8H42M [facility] Stop: 06/11/17 15:40 Last Admin: 06/11/17 04:09 Dose: 115 mls/hr Vancomycin HCl 1,250 mg/ (Sodium Chloride) 250 mls @ 166.667 mls/hr IVPB Q24H KIMMY PRN Reason: Protocol Piperacillin Sod/Tazobactam (Sod 3.375 gm/ Sodium Chloride) 100 mls @ 100 mls/ hr IVPB Q6 KIMMY PRN Reason: Protocol Last Admin: 06/11/17 10:27 Dose: 100 mls/hr Insulin Human Lispro (Humalog) 0 units SC ACHS KIMMY PRN Reason: Protocol Last Admin: 06/11/17 10:20 Dose: 3 units Latanoprost (Xalatan Opht) 1 drop OU HS [facility] Last Admin: 06/10/17 21:19 Dose: 1 drop Levothyroxine Sodium (Synthroid) 75 mcg PO DAILY@0630 [facility] Last Admin: 06/11/17 06:11 Dose: 75 mcg Memantine (Namenda) 10 mg PO BID [facility] Last Admin: 06/11/17 10:22 Dose: 10 mg Metronidazole (Flagyl) 500 mg PO Q8 KIMMY PRN Reason: Protocol Last Admin: 06/11/17 10:19 Dose: 500 mg Ondansetron HCl (Zofran Inj) 4 mg IVP Q6 PRN PRN Reason: Nausea/Vomiting Pantoprazole Sodium (Protonix Inj) 40 mg IVP DAILY [facility] Last Admin: 06/11/17 10:23 Dose: 40 mg Timolol Maleate (Timoptic 0.5% Ophth Soln) 1 drop OU BID [facility] Last Admin: 06/11/17 10:25 Dose: 1 drop Results - Vital Signs Recent Vital Signs: Last Vital Signs Temp 96.8 F L 06/11/17 08:00 Pulse 86 06/11/17 08:00 Resp 20 06/11/17 08:00 BP 158/70 H 06/11/17 10:34 Pulse Ox 95 06/11/17 08:00 - Labs Result Diagrams: 06/11/17 04:30 06/11/17 04:30 Labs: Laboratory Results - last 24 hr 06/10/17 06/10/17 06/10/17 11:48 11:48 11:48 WBC RBC Hgb Hct MCV MCH MCHC RDW Plt Count MPV Neut % (Auto) Lymph % (Auto) [place] % (Auto) Eos % (Auto) Baso % (Auto) Neut # Lymph # [place] # Eos # Baso # Neutrophils % (Manual) 86 H Band Neutrophils % 2 Lymphocytes % (Manual) 4 L Monocytes % (Manual) 7 Myelocytes % 1 H Toxic Granulation Present Platelet Estimate Normal RBC Morphology Normal PT 11.7 INR 1.1 APTT 28.5 pO2 VBG pH VBG pCO2 VBG HCO3 VBG Total CO2 VBG O2 Sat (Calc) VBG Base Excess VBG Potassium A-a O2 Difference Glucose Lactate FiO2 Blood Gas Comments Crit Value Called To Crit Value Called By Crit Value Read Back Blood Gas Notified Time Sodium 139 Potassium 4.4 Chloride 104 Carbon Dioxide 22 Anion Gap 17 BUN 25 H Creatinine 1.5 H Est GFR ( Amer) 40 Est GFR (Non-Af Amer) 33 POC Glucose (mg/dL) Random Glucose 249 H Lactic Acid Calcium 9.9 Iron TIBC % Saturation Ferritin Total Bilirubin 0.6 AST 42 H ALT 49 Alkaline Phosphatase 100 Troponin I < 0.0120 NT-Pro-B Natriuret Pep Total Protein 8.8 H Albumin 4.6 Globulin 4.1 H Albumin/Globulin Ratio 1.1 Lipase 148 Vitamin B12 Venous Blood Potassium Urine Color Urine Clarity Urine pH Ur Specific [place] Urine Protein Urine Glucose (UA) Urine Ketones Urine Blood Urine Nitrate Urine Bilirubin Urine Urobilinogen Ur Leukocyte Esterase Urine RBC (Auto) Urine WBC Clumps (Auto) Urine Microscopic WBC Ur Squamous Epith Cells Ur Transition Epith Cell Ur Renal Epithelial Cell Calcium Carbonate Cryst Calcium Phos Namrata (Auto) Calcium Oxalate Crystal Leucine Crystals Cystine Crystals Uric Acid Crystals Triple Phos Crystals Tyrosine Crystals Other Crystals Amorphous Sediment Urine Bacteria Epithelial Casts (Auto) Fatty Casts Hyaline Casts Granular Casts (Auto) Waxy Casts Broad Casts RBC Casts WBC Casts Other Casts Urine Trichomonas Ur Yeast w Hyphae Urine Yeast (Budding) Urine Sperm (Auto) Ur Oval Fat Bodies Auto Stool Occult Blood C. difficile Ag & Toxin Blood Type Antibody Screen BBK History Checked 06/10/17 06/10/17 06/10/17 11:48 13:08 14:00 WBC RBC Hgb Hct MCV MCH MCHC RDW Plt Count MPV Neut % (Auto) Lymph % (Auto) [place] % (Auto) Eos % (Auto) Baso % (Auto) Neut # Lymph # [place] # Eos # Baso # Neutrophils % (Manual) Band Neutrophils % Lymphocytes % (Manual) Monocytes % (Manual) Myelocytes % Toxic Granulation Platelet Estimate RBC Morphology PT INR APTT pO2 28 L VBG pH 7.33 VBG pCO2 46 VBG HCO3 22.2 VBG Total CO2 25.7 VBG O2 Sat (Calc) 58.0 VBG Base Excess -2.0 L VBG Potassium 4.6 A-a O2 Difference 64.0 Glucose 261 H Lactate 3.2 H FiO2 21.0 Blood Gas Comments Vbg Crit Value Called To Tj rodriguez Crit Value Called By 15 Crit Value Read Back Y Blood Gas Notified Time 1327 Sodium 140.0 Potassium Chloride 107.0 Carbon Dioxide Anion Gap BUN Creatinine Est GFR ( Amer) Est GFR (Non-Af Amer) POC Glucose (mg/dL) Random Glucose Lactic Acid Calcium Iron TIBC % Saturation Ferritin Total Bilirubin AST ALT Alkaline Phosphatase Troponin I NT-Pro-B Natriuret Pep Total Protein Albumin Globulin Albumin/Globulin Ratio Lipase Vitamin B12 Venous Blood Potassium 4.6 Urine Color Cancelled Urine Clarity Cancelled Urine pH Cancelled Ur Specific [place] Cancelled Urine Protein Cancelled Urine Glucose (UA) Cancelled Urine Ketones Cancelled Urine Blood Cancelled Urine Nitrate Cancelled Urine Bilirubin Cancelled Urine Urobilinogen Cancelled Ur Leukocyte Esterase Cancelled Urine RBC (Auto) Cancelled Urine WBC Clumps (Auto) Cancelled Urine Microscopic WBC Cancelled Ur Squamous Epith Cells Cancelled Ur Transition Epith Cell Cancelled Ur Renal Epithelial Cell Cancelled Calcium Carbonate Cryst Cancelled Calcium Phos Namrata (Auto) Cancelled Calcium Oxalate Crystal Cancelled Leucine Crystals Cancelled Cystine Crystals Cancelled Uric Acid Crystals Cancelled Triple Phos Crystals Cancelled Tyrosine Crystals Cancelled Other Crystals Cancelled Amorphous Sediment Cancelled Urine Bacteria Cancelled Epithelial Casts (Auto) Cancelled Fatty Casts Cancelled Hyaline Casts Cancelled Granular Casts (Auto) Cancelled Waxy Casts Cancelled Broad Casts Cancelled RBC Casts Cancelled WBC Casts Cancelled Other Casts Cancelled Urine Trichomonas Cancelled Ur Yeast w Hyphae Cancelled Urine Yeast (Budding) Cancelled Urine Sperm (Auto) Cancelled Ur Oval Fat Bodies Auto Cancelled Stool Occult Blood Negative C. difficile Ag & Toxin Blood Type A POSITIVE Antibody Screen Negative BBK History Checked Patient has bt 06/10/17 06/10/17 06/10/17 15:00 15:30 17:30 WBC RBC Hgb Hct MCV MCH MCHC RDW Plt Count MPV Neut % (Auto) Lymph % (Auto) [place] % (Auto) Eos % (Auto) Baso % (Auto) Neut # Lymph # [place] # Eos # Baso # Neutrophils % (Manual) Band Neutrophils % Lymphocytes % (Manual) Monocytes % (Manual) Myelocytes % Toxic Granulation Platelet Estimate RBC Morphology PT INR APTT pO2 24 L VBG pH 7.28 L VBG pCO2 52 VBG HCO3 20.9 VBG Total CO2 26.0 VBG O2 Sat (Calc) 39.6 L VBG Base Excess -3.0 L VBG Potassium 4.6 A-a O2 Difference Glucose 230 H Lactate 3.5 H FiO2 21.0 Blood Gas Comments Crit Value Called To Crit Value Called By Crit Value Read Back Blood Gas Notified Time Sodium 139.0 Potassium Chloride 110.0 H Carbon Dioxide Anion Gap BUN Creatinine Est GFR ( Amer) Est GFR (Non-Af Amer) POC Glucose (mg/dL) 193 H Random Glucose Lactic Acid Calcium Iron TIBC % Saturation Ferritin Total Bilirubin AST ALT Alkaline Phosphatase Troponin I NT-Pro-B Natriuret Pep Total Protein Albumin Globulin Albumin/Globulin Ratio Lipase Vitamin B12 Venous Blood Potassium 4.6 Urine Color Urine Clarity Urine pH Ur Specific [place] Urine Protein Urine Glucose (UA) Urine Ketones Urine Blood Urine Nitrate Urine Bilirubin Urine Urobilinogen Ur Leukocyte Esterase Urine RBC (Auto) Urine WBC Clumps (Auto) Urine Microscopic WBC Ur Squamous Epith Cells Ur Transition Epith Cell Ur Renal Epithelial Cell Calcium Carbonate Cryst Calcium Phos Namrata (Auto) Calcium Oxalate Crystal Leucine Crystals Cystine Crystals Uric Acid Crystals Triple Phos Crystals Tyrosine Crystals Other Crystals Amorphous Sediment Urine Bacteria Epithelial Casts (Auto) Fatty Casts Hyaline Casts Granular Casts (Auto) Waxy Casts Broad Casts RBC Casts WBC Casts Other Casts Urine Trichomonas Ur Yeast w Hyphae Urine Yeast (Budding) Urine Sperm (Auto) Ur Oval Fat Bodies Auto Stool Occult Blood C. difficile Ag & Toxin Negative Blood Type Antibody Screen BBK History Checked 06/10/17 06/11/17 06/11/17 21:52 04:30 04:30 WBC 20.9 H D RBC 3.40 L Hgb 9.9 L D Hct 31.3 L MCV 91.9 MCH 29.0 MCHC 31.5 L RDW 14.6 H Plt Count 268 D MPV 9.9 Neut % (Auto) 86.5 H Lymph % (Auto) 4.0 L [place] % (Auto) 9.4 Eos % (Auto) 0.0 Baso % (Auto) 0.1 Neut # 18.0 H Lymph # 0.8 L [place] # 2.0 H Eos # 0.0 Baso # 0.0 Neutrophils % (Manual) Band Neutrophils % Lymphocytes % (Manual) Monocytes % (Manual) Myelocytes % Toxic Granulation Platelet Estimate RBC Morphology PT 13.3 H INR 1.2 APTT 27.9 pO2 VBG pH VBG pCO2 VBG HCO3 VBG Total CO2 VBG O2 Sat (Calc) VBG Base Excess VBG Potassium A-a O2 Difference Glucose Lactate FiO2 Blood Gas Comments Crit Value Called To Crit Value Called By Crit Value Read Back Blood Gas Notified Time Sodium Potassium Chloride Carbon Dioxide Anion Gap BUN Creatinine Est GFR ( Amer) Est GFR (Non-Af Amer) POC Glucose (mg/dL) 240 H Random Glucose Lactic Acid Calcium Iron TIBC % Saturation Ferritin Total Bilirubin AST ALT Alkaline Phosphatase Troponin I NT-Pro-B Natriuret Pep Total Protein Albumin Globulin Albumin/Globulin Ratio Lipase Vitamin B12 Venous Blood Potassium Urine Color Urine Clarity Urine pH Ur Specific [place] Urine Protein Urine Glucose (UA) Urine Ketones Urine Blood Urine Nitrate Urine Bilirubin Urine Urobilinogen Ur Leukocyte Esterase Urine RBC (Auto) Urine WBC Clumps (Auto) Urine Microscopic WBC Ur Squamous Epith Cells Ur Transition Epith Cell Ur Renal Epithelial Cell Calcium Carbonate Cryst Calcium Phos Namrata (Auto) Calcium Oxalate Crystal Leucine Crystals Cystine Crystals Uric Acid Crystals Triple Phos Crystals Tyrosine Crystals Other Crystals Amorphous Sediment Urine Bacteria Epithelial Casts (Auto) Fatty Casts Hyaline Casts Granular Casts (Auto) Waxy Casts Broad Casts RBC Casts WBC Casts Other Casts Urine Trichomonas Ur Yeast w Hyphae Urine Yeast (Budding) Urine Sperm (Auto) Ur Oval Fat Bodies Auto Stool Occult Blood C. difficile Ag & Toxin Blood Type Antibody Screen BBK History Checked 06/11/17 06/11/17 06/11/17 04:30 04:30 05:13 WBC RBC Hgb Hct MCV MCH MCHC RDW Plt Count MPV Neut % (Auto) Lymph % (Auto) [place] % (Auto) Eos % (Auto) Baso % (Auto) Neut # Lymph # [place] # Eos # Baso # Neutrophils % (Manual) Band Neutrophils % Lymphocytes % (Manual) Monocytes % (Manual) Myelocytes % Toxic Granulation Platelet Estimate RBC Morphology PT INR APTT pO2 VBG pH VBG pCO2 VBG HCO3 VBG Total CO2 VBG O2 Sat (Calc) VBG Base Excess VBG Potassium A-a O2 Difference Glucose Lactate FiO2 Blood Gas Comments Crit Value Called To Crit Value Called By Crit Value Read Back Blood Gas Notified Time Sodium 141 Potassium 4.2 Chloride 107 Carbon Dioxide 21 L Anion Gap 17 BUN 33 H Creatinine 1.1 Est GFR ( Amer) 57 Est GFR (Non-Af Amer) 47 POC Glucose (mg/dL) 236 H Random Glucose 239 H Lactic Acid 1.5 Calcium 8.0 L Iron TIBC % Saturation Ferritin Total Bilirubin 0.4 AST 26 ALT 42 Alkaline Phosphatase 62 Troponin I NT-Pro-B Natriuret Pep 4030 H Total Protein 6.6 Albumin 3.3 L D Globulin 3.3 Albumin/Globulin Ratio 1.0 Lipase Vitamin B12 Venous Blood Potassium Urine Color Urine Clarity Urine pH Ur Specific [place] Urine Protein Urine Glucose (UA) Urine Ketones Urine Blood Urine Nitrate Urine Bilirubin Urine Urobilinogen Ur Leukocyte Esterase Urine RBC (Auto) Urine WBC Clumps (Auto) Urine Microscopic WBC Ur Squamous Epith Cells Ur Transition Epith Cell Ur Renal Epithelial Cell Calcium Carbonate Cryst Calcium Phos Namrata (Auto) Calcium Oxalate Crystal Leucine Crystals Cystine Crystals Uric Acid Crystals Triple Phos Crystals Tyrosine Crystals Other Crystals Amorphous Sediment Urine Bacteria Epithelial Casts (Auto) Fatty Casts Hyaline Casts Granular Casts (Auto) Waxy Casts Broad Casts RBC Casts WBC Casts Other Casts Urine Trichomonas Ur Yeast w Hyphae Urine Yeast (Budding) Urine Sperm (Auto) Ur Oval Fat Bodies Auto Stool Occult Blood C. difficile Ag & Toxin Blood Type Antibody Screen BBK History Checked 06/11/17 06/11/17 09:16 09:16 WBC RBC Hgb Hct MCV MCH MCHC RDW Plt Count MPV Neut % (Auto) Lymph % (Auto) [place] % (Auto) Eos % (Auto) Baso % (Auto) Neut # Lymph # [place] # Eos # Baso # Neutrophils % (Manual) Band Neutrophils % Lymphocytes % (Manual) Monocytes % (Manual) Myelocytes % Toxic Granulation Platelet Estimate RBC Morphology PT INR APTT pO2 VBG pH VBG pCO2 VBG HCO3 VBG Total CO2 VBG O2 Sat (Calc) VBG Base Excess VBG Potassium A-a O2 Difference Glucose Lactate FiO2 Blood Gas Comments Crit Value Called To Crit Value Called By Crit Value Read Back Blood Gas Notified Time Sodium Potassium Chloride Carbon Dioxide Anion Gap BUN Creatinine Est GFR ( Amer) Est GFR (Non-Af Amer) POC Glucose (mg/dL) Random Glucose Lactic Acid Calcium Iron 17 L TIBC 253 % Saturation 7 L Ferritin 62.7 Total Bilirubin AST ALT Alkaline Phosphatase Troponin I NT-Pro-B Natriuret Pep Total Protein Albumin Globulin Albumin/Globulin Ratio Lipase Vitamin B12 761 Venous Blood Potassium Urine Color Urine Clarity Urine pH Ur Specific [place] Urine Protein Urine Glucose (UA) Urine Ketones Urine Blood Urine Nitrate Urine Bilirubin Urine Urobilinogen Ur Leukocyte Esterase Urine RBC (Auto) Urine WBC Clumps (Auto) Urine Microscopic WBC Ur Squamous Epith Cells Ur Transition Epith Cell Ur Renal Epithelial Cell Calcium Carbonate Cryst Calcium Phos Namrata (Auto) Calcium Oxalate Crystal Leucine Crystals Cystine Crystals Uric Acid Crystals Triple Phos Crystals Tyrosine Crystals Other Crystals Amorphous Sediment Urine Bacteria Epithelial Casts (Auto) Fatty Casts Hyaline Casts Granular Casts (Auto) Waxy Casts Broad Casts RBC Casts WBC Casts Other Casts Urine Trichomonas Ur Yeast w Hyphae Urine Yeast (Budding) Urine Sperm (Auto) Ur Oval Fat Bodies Auto Stool Occult Blood C. difficile Ag & Toxin Blood Type Antibody Screen BBK History Checked Attending/Attestation - Attestation I have personally seen and examined this patient.: Yes I have fully participated in the care of the patient.: Yes I have reviewed all pertinent clinical information: Yes Notes (Text): 06/11/17 12:04 This is a 81 year old female with history of Dementia, Blindness, DM, HTN, HLD, Hypothyroidism, recent antibiotics 05/28/17 for Pseudomonas UTI, and CHF EF 40-45 % (05/23/17) presenting with documented coffee-ground emesis. Active treatment of severe sepsis secondary to hospital acquired pneumonia. Prior EGD 02/2015 showed esophagitis, H pylori negative gastritis, duodenitis, and villous shortening. No recurrent vomiting. H/Hct stable and rectal exam with brown stool. No s/s of overt GI blood loss. Supportice care with PPI and IVF and antibiotics. Advance diet as tolerated. Will follow. No urgent indication for endoscopy
[2017-06-11] MEDS ORDERED: Sodium Chloride 3% for Inhalation 4 ML VIAL.NEB IH PRN (11:17)
--- NOTE | 2017-06-11 11:24 | CARD ---
APPROVED REPORT EKG Measurement Heart [id number] <Conclusion> Sinus tachycardia Nonspecific T wave abnormality Abnormal ECG
--- NOTE | 2017-06-11 14:20 | RAD ---
HISTORY: f/u COMPARISON: Chest radiograph dated 06/10/2017. FINDINGS: LUNGS: Pulmonary vascular congestion. Left basilar atelectasis. PLEURA: Questionable small left pleural effusion. No pneumothorax apparent. CARDIOVASCULAR: Atherosclerotic aortic calcifications. Cardiomediastinal silhouette unchanged. OSSEOUS STRUCTURES: Unchanged. VISUALIZED UPPER ABDOMEN: Normal. OTHER FINDINGS: None. IMPRESSION: Pulmonary vascular congestion. Questionable small left pleural effusion.
[2017-06-11 18:21] LABS: FOLATE 13.9 ng/mL
[2017-06-11] MEDS: Latanoprost 0.005% Opht SOUTION OU SCH (21:12)
[2017-06-12] MEDS: Piperacillin/Tazobact 3.375 GM in Sodium Chloride 0.9% 100 ML IVPB SCH ×4 (03:22→21:08)
[2017-06-12] MEDS: Levothyroxine 75 MCG TAB PO SCH (05:30)
[2017-06-12 05:43] LABS: HEMATOCRIT 29.1 % (34.0-47.0); MEAN CELL VOLUME 90.4 fl (81.0-99.0); MEAN CORPUSCULAR HEMOGLOBIN 29.1 pg (27.0-31.0); MEAN CORPUSCULAR HGB CONC 32.2 g/dL (33.0-37.0); RED CELL DISTRIBUTION WIDTH 14.4 % (11.5-14.5); WHITE BLOOD COUNT 18.2 K/uL (4.8-10.8)
[2017-06-12 06:01] LABS: BLOOD UREA NITROGEN 26 mg/dl (7-17); CARBON DIOXIDE 25 mmol/L (22-30); CHLORIDE 106 mmol/L (98-107); GFR AFRICAN-AMERICAN > 60; GLUCOSE,RANDOM 199 mg/dL (65-105); POTASSIUM 3.1 MMOL/L (3.6-5.0); SODIUM 139 mmol/l (132-148)
[2017-06-12] MEDS: Insulin Lispro (humaLOG) 100 Units/ml Inj SC SCH ×4 (06:32→22:00)
--- NOTE | 2017-06-12 08:34 | CP.PCM.PN ---
<Di Rojas - Last Filed: 06/12/17 11:12> Subjective - Date & Time of Evaluation Date of Evaluation: 06/12/17 Time of Evaluation: 08:32 - Subjective Subjective: Gastroenterology Fellow/PGY5 Progress Note Patient denies abdominal pain or vomiting. Tolerated liquid diet. Had a semi- formed stool this morning. A 12-point review of systems limited in setting of Dementia. Objective - Vital Signs/Intake and Output Vital Signs (last 24 hours): Temp Pulse Resp BP Pulse Ox 97.7 F 80 20 172/75 H 95 06/12/17 08:00 06/12/17 08:00 06/12/17 08:00 06/12/17 08:00 06/12/17 08:00 - Medications Medications: Current Medications Brimonidine Tartrate (Alphagan 0.2% Opht) 1 drop OU BID [facility] Last Admin: 06/11/17 17:50 Dose: 1 drop Dextrose (Dextrose 50% Inj) 0 ml IV STAT PRN; Protocol PRN Reason: Hypoglycemia Protocol Dextrose (Glutose 15) 0 gm PO ONCE PRN; Protocol PRN Reason: Hypoglycemia Protocol Donepezil HCl (Aricept) 10 mg PO HS [facility] Last Admin: 06/11/17 21:12 Dose: 10 mg Enoxaparin Sodium (Lovenox) 40 mg SC DAILY [facility] PRN Reason: Protocol Last Admin: 06/11/17 12:12 Dose: Not Given Furosemide (Lasix) 20 mg IVP DAILY [facility] Last Admin: 06/11/17 10:34 Dose: 20 mg Glucagon (Glucagen Diagnostic Kit) 0 mg IM STAT PRN; Protocol PRN Reason: Hypoglycemia Protocol Vancomycin HCl 1,250 mg/ (Sodium Chloride) 250 mls @ 166.667 mls/hr IVPB Q24H [facility] PRN Reason: Protocol Last Admin: 06/11/17 19:12 Dose: 166.667 mls/hr Piperacillin Sod/Tazobactam (Sod 3.375 gm/ Sodium Chloride) 100 mls @ 100 mls/ hr IVPB Q6 [facility] PRN Reason: Protocol Last Admin: 06/12/17 03:22 Dose: 100 mls/hr Insulin Human Lispro (Humalog) 0 units SC ACHS [facility] PRN Reason: Protocol Last Admin: 06/12/17 06:32 Dose: 3 units Latanoprost (Xalatan Opht) 1 drop OU HS [facility] Last Admin: 06/11/17 21:12 Dose: 1 drop Levothyroxine Sodium (Synthroid) 75 mcg PO DAILY@0630 [facility] Last Admin: 06/12/17 05:30 Dose: 75 mcg Memantine (Namenda) 10 mg PO BID [facility] Last Admin: 06/11/17 17:52 Dose: 10 mg Metronidazole (Flagyl) 500 mg PO Q8 [facility] PRN Reason: Protocol Last Admin: 06/12/17 00:35 Dose: 500 mg Ondansetron HCl (Zofran Inj) 4 mg IVP Q6 PRN PRN Reason: Nausea/Vomiting Pantoprazole Sodium (Protonix Inj) 40 mg IVP DAILY [facility] Last Admin: 06/11/17 10:23 Dose: 40 mg Timolol Maleate (Timoptic 0.5% Ophth Soln) 1 drop OU BID [facility] Last Admin: 06/11/17 17:53 Dose: 1 drop - Labs Labs: 06/12/17 05:26 06/12/17 05:26 PT 13.3 Seconds (9.8-13.1) H 06/11/17 04:30 INR 1.2 (0.9-1.2) 06/11/17 04:30 APTT 27.9 Seconds (25.6-37.1) 06/11/17 04:30 - Constitutional Appears: Non-toxic, No Acute Distress - Head Exam Head Exam: ATRAUMATIC, NORMOCEPHALIC - Eye Exam Eye Exam: EOMI, PERRL Pupil Exam: PERRL. absent: Miosis, Mydriatic - ENT Exam ENT Exam: Mucous Membranes Moist, Normal Oropharynx - Neck Exam Neck Exam: Full ROM, Normal Inspection - Respiratory Exam Respiratory Exam: Clear to Ausculation Bilateral. absent: Rales, Rhonchi, Wheezes - Cardiovascular Exam Cardiovascular Exam: RRR, +S1, +S2. absent: Gallop, Rubs - GI/Abdominal Exam GI & Abdominal Exam: Soft, Normal Bowel Sounds. absent: Distended, Firm, Guarding, Rigid, Tenderness, Organomegaly, Rebound - Extremities Exam Extremities Exam: Full ROM, Normal Inspection - Neurological Exam Neurological Exam: Alert, Awake - Psychiatric Exam Psychiatric exam: Normal Affect, Normal Mood - Skin Skin Exam: Dry, Intact, Normal Color, Warm Assessment and Plan - Assessment and Plan (Free Text) Assessment: 81 year old female with history of Dementia, Blindness, DM, HTN, HLD, Hypothyroidism, recent antibiotics 05/28/17 for Pseudomonas UTI, and sCHF EF 40- 45% (05/23/17) presenting with documented coffee-ground emesis. Active treatment of severe sepsis secondary to hospital acquired pneumonia. Prior EGD showed esophagitis, H pylori negative gastritis, duodenitis, and villous shortening. Plan: >vomiting resolved >FOBT negative >H/H stable >no overt GI blood loss >supportive care: antiemetics, PPI, IVFs >on liquid diet, advance as tolerated >no indication for endoscopic evaluation <Edel Muñoz MD - Last Filed: 06/12/17 11:24> Objective - Vital Signs/Intake and Output Vital Signs (last 24 hours): Temp Pulse Resp BP Pulse Ox 97.7 F 80 20 172/75 H 95 06/12/17 08:00 06/12/17 09:48 06/12/17 08:00 06/12/17 10:12 06/12/17 08:00 - Medications Medications: Current Medications Brimonidine Tartrate (Alphagan 0.2% Opht) 1 drop OU BID [facility] Last Admin: 06/12/17 09:13 Dose: 1 drop Dextrose (Dextrose 50% Inj) 0 ml IV STAT PRN; Protocol PRN Reason: Hypoglycemia Protocol Dextrose (Glutose 15) 0 gm PO ONCE PRN; Protocol PRN Reason: Hypoglycemia Protocol Donepezil HCl (Aricept) 10 mg PO HS [facility] Last Admin: 06/11/17 21:12 Dose: 10 mg Enoxaparin Sodium (Lovenox) 40 mg SC DAILY [facility] PRN Reason: Protocol Last Admin: 06/11/17 12:12 Dose: Not Given Furosemide (Lasix) 20 mg IVP DAILY [facility] Last Admin: 06/12/17 09:21 Dose: 20 mg Glucagon (Glucagen Diagnostic Kit) 0 mg IM STAT PRN; Protocol PRN Reason: Hypoglycemia Protocol Vancomycin HCl 1,250 mg/ (Sodium Chloride) 250 mls @ 166.667 mls/hr IVPB Q24H [facility] PRN Reason: Protocol Last Admin: 06/11/17 19:12 Dose: 166.667 mls/hr Piperacillin Sod/Tazobactam (Sod 3.375 gm/ Sodium Chloride) 100 mls @ 100 mls/ hr IVPB Q6 [facility] PRN Reason: Protocol Last Admin: 06/12/17 09:00 Dose: 100 mls/hr Insulin Human Lispro (Humalog) 0 units SC ACHS [facility] PRN Reason: Protocol Last Admin: 06/12/17 06:32 Dose: 3 units Latanoprost (Xalatan Opht) 1 drop OU HS [facility] Last Admin: 06/11/17 21:12 Dose: 1 drop Levothyroxine Sodium (Synthroid) 75 mcg PO DAILY@0630 [facility] Last Admin: 06/12/17 05:30 Dose: 75 mcg Memantine (Namenda) 10 mg PO BID [facility] Last Admin: 06/12/17 09:15 Dose: 10 mg Metoprolol Tartrate (Lopressor) 12.5 mg PO DAILY PRN PRN Reason: SBP >139 Last Admin: 06/12/17 09:48 Dose: 12.5 mg Metronidazole (Flagyl) 500 mg PO Q8 [facility] PRN Reason: Protocol Last Admin: 06/12/17 09:14 Dose: 500 mg Ondansetron HCl (Zofran Inj) 4 mg IVP Q6 PRN PRN Reason: Nausea/Vomiting Pantoprazole Sodium (Protonix Inj) 40 mg IVP DAILY [facility] Last Admin: 06/12/17 09:16 Dose: 40 mg Potassium Chloride (Potassium Chloride Oral Soln) 20 meq PO DAILY [facility] Potassium Chloride (Potassium Chloride Oral Soln) 20 meq PO ONCE ONE Stop: 06/12/17 17:01 Ramipril (Altace) 5 mg PO DAILY [facility] Last Admin: 06/12/17 10:12 Dose: 5 mg Timolol Maleate (Timoptic 0.5% Ophth Soln) 1 drop OU BID [facility] Last Admin: 06/12/17 09:16 Dose: 1 drop - Labs Labs: 06/12/17 05:26 06/12/17 05:26 PT 13.3 Seconds (9.8-13.1) H 06/11/17 04:30 INR 1.2 (0.9-1.2) 06/11/17 04:30 APTT 27.9 Seconds (25.6-37.1) 06/11/17 04:30 Attending/Attestation - Attestation I have personally seen and examined this patient.: Yes I have fully participated in the care of the patient.: Yes I have reviewed all pertinent clinical information, including history, physical exam and plan: Yes Notes (Text): 06/12/17 11:24 This is a 81 year old female with history of Dementia, Blindness, DM, HTN, HLD, Hypothyroidism, recent antibiotics 05/28/17 for Pseudomonas UTI, and CHF EF 40-45 % (05/23/17) presenting with documented coffee-ground emesis which has resolved since admission. Active treatment of severe sepsis secondary to hospital acquired pneumonia. Prior EGD 02/2015 showed esophagitis, H pylori negative gastritis, duodenitis, and villous shortening. No recurrent vomiting. H/Hct stable and rectal exam with brown stool. No s/s of overt GI blood loss. Supportive care with PPI and IVF and antibiotics. Advance diet as tolerated. No urgent indication for endoscopy. Will sign off now. Thank you for letting us participate in the care of your patient
[2017-06-12] MEDS ORDERED: Potassium CL 10 MEQ/50 ML 50 ML IVPB SCH (09:00)
[2017-06-12] MEDS: Brimonidine 0.2% 50 DROP/5 ML BOTTLE OU SCH ×2 (09:13→17:01)
--- NOTE | 2017-06-12 09:39 | CP.PCM.PN ---
Subjective - Date & Time of Evaluation Date of Evaluation: 06/12/17 Time of Evaluation: 07:20 - Subjective Subjective: Patient seen and examined bedside with Dr Ferraro in Telemetry. Patient with dementia, noticed w/o SBO in not acute distress. Denies chest pain, fever, vomiting, abd pain. no overnight arrhythmia noticed. Objective - Vital Signs/Intake and Output Vital Signs (last 24 hours): Temp Pulse Resp BP Pulse Ox 97.7 F 80 20 172/75 H 95 06/12/17 08:00 06/12/17 08:00 06/12/17 08:00 06/12/17 09:21 06/12/17 08:00 - Medications Medications: Current Medications Brimonidine Tartrate (Alphagan 0.2% Opht) 1 drop OU BID [facility] Last Admin: 06/12/17 09:13 Dose: 1 drop Dextrose (Dextrose 50% Inj) 0 ml IV STAT PRN; Protocol PRN Reason: Hypoglycemia Protocol Dextrose (Glutose 15) 0 gm PO ONCE PRN; Protocol PRN Reason: Hypoglycemia Protocol Donepezil HCl (Aricept) 10 mg PO HS [facility] Last Admin: 06/11/17 21:12 Dose: 10 mg Enoxaparin Sodium (Lovenox) 40 mg SC DAILY [facility] PRN Reason: Protocol Last Admin: 06/11/17 12:12 Dose: Not Given Furosemide (Lasix) 20 mg IVP DAILY [facility] Last Admin: 06/12/17 09:21 Dose: 20 mg Glucagon (Glucagen Diagnostic Kit) 0 mg IM STAT PRN; Protocol PRN Reason: Hypoglycemia Protocol Vancomycin HCl 1,250 mg/ (Sodium Chloride) 250 mls @ 166.667 mls/hr IVPB Q24H [facility] PRN Reason: Protocol Last Admin: 06/11/17 19:12 Dose: 166.667 mls/hr Piperacillin Sod/Tazobactam (Sod 3.375 gm/ Sodium Chloride) 100 mls @ 100 mls/ hr IVPB Q6 [facility] PRN Reason: Protocol Last Admin: 06/12/17 09:00 Dose: 100 mls/hr Potassium Chloride (Potassium Cl 10meq/50ml Sterile Water) 50 mls @ 50 mls/hr IVPB Q1 [facility] Stop: 06/12/17 12:59 Last Admin: 06/12/17 09:35 Dose: 50 mls/hr Insulin Human Lispro (Humalog) 0 units SC ACHS [facility] PRN Reason: Protocol Last Admin: 06/12/17 06:32 Dose: 3 units Latanoprost (Xalatan Opht) 1 drop OU HS [facility] Last Admin: 06/11/17 21:12 Dose: 1 drop Levothyroxine Sodium (Synthroid) 75 mcg PO DAILY@0630 [facility] Last Admin: 06/12/17 05:30 Dose: 75 mcg Memantine (Namenda) 10 mg PO BID [facility] Last Admin: 06/12/17 09:15 Dose: 10 mg Metoprolol Tartrate (Lopressor) 12.5 mg PO DAILY PRN PRN Reason: SBP >139 Metronidazole (Flagyl) 500 mg PO Q8 [facility] PRN Reason: Protocol Last Admin: 06/12/17 09:14 Dose: 500 mg Ondansetron HCl (Zofran Inj) 4 mg IVP Q6 PRN PRN Reason: Nausea/Vomiting Pantoprazole Sodium (Protonix Inj) 40 mg IVP DAILY [facility] Last Admin: 06/12/17 09:16 Dose: 40 mg Ramipril (Altace) 5 mg PO DAILY [facility] Timolol Maleate (Timoptic 0.5% Ophth Soln) 1 drop OU BID [facility] Last Admin: 06/12/17 09:16 Dose: 1 drop - Labs Labs: 06/12/17 05:26 06/12/17 05:26 PT 13.3 Seconds (9.8-13.1) H 06/11/17 04:30 INR 1.2 (0.9-1.2) 06/11/17 04:30 APTT 27.9 Seconds (25.6-37.1) 06/11/17 04:30 - Constitutional Appears: Non-toxic, No Acute Distress - Head Exam Head Exam: ATRAUMATIC, NORMOCEPHALIC - Eye Exam Eye Exam: Normal appearance - Neck Exam Neck Exam: Normal Inspection - Respiratory Exam Respiratory Exam: Decreased Breath Sounds, Rales Additional comments: left lung base - Cardiovascular Exam Cardiovascular Exam: REGULAR RHYTHM, +S1, +S2 - GI/Abdominal Exam GI & Abdominal Exam: Soft, Normal Bowel Sounds. absent: Tenderness - Extremities Exam Extremities Exam: Normal Inspection. absent: Calf Tenderness - Neurological Exam Neurological Exam: Alert, Awake - Psychiatric Exam Psychiatric exam: Normal Mood - Skin Skin Exam: Intact Assessment and Plan - Assessment and Plan (Free Text) Plan: Assessment & Plan (1) Severe Sepsis -resolving -secondary to PNA -lactic acid normalized -leukocytosis trending down (2) Acute upper GI bleed -resolved -GI Consult appreciated. no active bleeding -on liquid diet, advance as tolerated:no indication for endoscopic evaluation (3) HAP (hospital-acquired pneumonia) Status: Acute Comment: -recent hospitalization. -CT left lower lobe infiltrate. -c/w vanco, zosyn (4) Gastroenteritis -resolved Hydration Pantoprazol zofran Status: Acute 5) Hypokalemia -secondary to diuretic -KCL -f/u CMP (6) systolic CHF exacerbation -Echo 05/23/17 EF 40-45 % Mod Ao stenosis -lasix -telemetry, no arrhythmia overnight (7) DVT prophylaxis Assessment and Plan: Lovenox Status: Acute
--- NOTE | 2017-06-12 11:21 | PQF GENQUE ---
This form is a permanent part of the medical record 06/12/17 Dr. Ferraro, Please specify type or suspected type of pneumonia in the progress notes. -- Aspiration Pneumonia -- Bacterial ( specify organism if known) -- Bronchopneumonia -- Interstitial Pneumonia -- Viral Pneumonia -- Tuberculosis Pneumonia -- Organizing Pneumonia -- Other pneumonia please specify -- Clinically unable to determine -- Unknown Probable and suspected conditions can be coded as if they exist if still documented at the time of discharge. Note: CAP, HAP, and HCAP indicate where the pneumonia was acquired, not a specific type. Clarification of your documentation is requested to better reflect the severity of illness and intensity of treatment of your patient. Indicators present [] Specify: [] [] Specify: [] [] Specify: [] [] Specify: [] Location in the medical record that reflects the above clinical findings: [] Treatment Provided: [] PHYSICIAN'S RESPONSE Based on your medical judgment of the clinical indicators outlined above please clarify the following: [] Practitioner response [] If unable to determine, please check the box, sign and date. Present On Admission (POA) Indicator: [] Present at the time of admission [] Not present at the time of admission [] Clinically Undetermined In responding to this query, please exercise your independent professional judgment. The fact that a question is asked does not imply that any particular answer is desired or expected. Thank you for your clarification on this documentation. If you have any questions please call:ext [phone] * Thank you, Melanie Thomas RN [facility]
[2017-06-12] MEDS: Potassium Chloride 20 mEq/15 ml LIQ UD PO SCH (12:30)
[2017-06-12] MEDS ORDERED: Potassium Chloride 20 mEq/15 ml LIQ UD PO ONE (17:00)
[2017-06-12] MEDS ORDERED: Metoprolol 1 mg/ml Inj IVP ONE (17:51)
[2017-06-12] MEDS: Latanoprost 0.005% Opht SOUTION OU SCH (21:08)
[2017-06-13] MEDS: Piperacillin/Tazobact 3.375 GM in Sodium Chloride 0.9% 100 ML IVPB SCH ×4 (04:51→21:01)
[2017-06-13] MEDS: Levothyroxine 75 MCG TAB PO SCH (06:24)
[2017-06-13] MEDS: Insulin Lispro (humaLOG) 100 Units/ml Inj SC SCH ×4 (06:30→21:06)
[2017-06-13 07:29] LABS: BLOOD UREA NITROGEN 17 mg/dl (7-17); CARBON DIOXIDE 23 mmol/L (22-30); CHLORIDE 99 mmol/L (98-107); GFR AFRICAN-AMERICAN > 60; GLUCOSE,RANDOM 213 mg/dL (65-105); POTASSIUM 3.3 MMOL/L (3.6-5.0); SODIUM 132 mmol/l (132-148)
--- NOTE | 2017-06-13 08:04 | PQF GENQUE ---
This form is a permanent part of the medical record 06/13/17 Dr. Ferraro, Please clarify if there is an associated diagnosis or not to go along with the BUN and Creatinine results. 81 year old with dementia presents to the ER after she started vomiting poorly digested food then dark coffee ground emesis. Treated with IVF. BUN 25, 33, 26, 17 Creatinine 1.5, 1.1, 0.9, 0.7 GFR 33, 47, 60, >60. Clarification of your documentation is requested to better reflect the severity of illness and intensity of treatment of your patient. Indicators present [] Specify: [] [] Specify: [] [] Specify: [] [] Specify: [] Location in the medical record that reflects the above clinical findings: [] Treatment Provided: [] PHYSICIAN'S RESPONSE Based on your medical judgment of the clinical indicators outlined above please clarify the following: [] Practitioner response [] If unable to determine, please check the box, sign and date. Present On Admission (POA) Indicator: [] Present at the time of admission [] Not present at the time of admission [] Clinically Undetermined In responding to this query, please exercise your independent professional judgment. The fact that a question is asked does not imply that any particular answer is desired or expected. Thank you for your clarification on this documentation. If you have any questions please call:ext [phone] * Thank you, Melanie Thomas RN [facility]
[2017-06-13] MEDS ORDERED: Potassium Chloride 20 mEq/15 ml LIQ UD PO ONE (08:40)
[2017-06-13] MEDS: Potassium Chloride 20 mEq/15 ml LIQ UD PO SCH (09:04)
[2017-06-13] MEDS: Brimonidine 0.2% 50 DROP/5 ML BOTTLE OU SCH ×2 (09:05→17:05)
--- NOTE | 2017-06-13 09:05 | CP.PCM.PN ---
Objective - Vital Signs/Intake and Output Vital Signs (last 24 hours): Temp Pulse Resp BP Pulse Ox 98.1 F 63 20 156/76 H 97 06/13/17 08:00 06/13/17 08:00 06/13/17 08:00 06/13/17 08:00 06/13/17 08:00 - Medications Medications: Current Medications Brimonidine Tartrate (Alphagan 0.2% Opht) 1 drop OU BID [facility] Last Admin: 06/12/17 17:01 Dose: 1 drop Dextrose (Dextrose 50% Inj) 0 ml IV STAT PRN; Protocol PRN Reason: Hypoglycemia Protocol Dextrose (Glutose 15) 0 gm PO ONCE PRN; Protocol PRN Reason: Hypoglycemia Protocol Donepezil HCl (Aricept) 10 mg PO HS [facility] Last Admin: 06/12/17 21:08 Dose: 10 mg Enoxaparin Sodium (Lovenox) 40 mg SC DAILY KIMMY PRN Reason: Protocol Last Admin: 06/11/17 12:12 Dose: Not Given Furosemide (Lasix) 20 mg IVP DAILY [facility] Last Admin: 06/12/17 09:21 Dose: 20 mg Glucagon (Glucagen Diagnostic Kit) 0 mg IM STAT PRN; Protocol PRN Reason: Hypoglycemia Protocol Vancomycin HCl 1,250 mg/ (Sodium Chloride) 250 mls @ 166.667 mls/hr IVPB Q24H KIMMY PRN Reason: Protocol Last Admin: 06/12/17 16:00 Dose: 166.667 mls/hr Piperacillin Sod/Tazobactam (Sod 3.375 gm/ Sodium Chloride) 100 mls @ 100 mls/ hr IVPB Q6 KIMMY PRN Reason: Protocol Last Admin: 06/13/17 04:51 Dose: 100 mls/hr Insulin Human Lispro (Humalog) 0 units SC ACHS KIMMY PRN Reason: Protocol Last Admin: 06/13/17 06:30 Dose: 3 units Latanoprost (Xalatan Opht) 1 drop OU HS [facility] Last Admin: 06/12/17 21:08 Dose: 1 drop Levothyroxine Sodium (Synthroid) 75 mcg PO DAILY@0630 [facility] Last Admin: 06/13/17 06:24 Dose: 75 mcg Memantine (Namenda) 10 mg PO BID [facility] Last Admin: 06/12/17 17:03 Dose: 10 mg Metoprolol Tartrate (Lopressor) 12.5 mg PO DAILY PRN PRN Reason: SBP >139 Last Admin: 06/12/17 09:48 Dose: 12.5 mg Metronidazole (Flagyl) 500 mg PO Q8 KIMMY PRN Reason: Protocol Last Admin: 06/13/17 01:20 Dose: 500 mg Ondansetron HCl (Zofran Inj) 4 mg IVP Q6 PRN PRN Reason: Nausea/Vomiting Pantoprazole Sodium (Protonix Inj) 40 mg IVP DAILY [facility] Last Admin: 06/12/17 09:16 Dose: 40 mg Potassium Chloride (Potassium Chloride Oral Soln) 20 meq PO DAILY KIMMY Last Admin: 06/12/17 12:30 Dose: 20 meq Potassium Chloride (Potassium Chloride Oral Soln) 20 meq PO ONCE ONE Stop: 06/13/17 08:41 Ramipril (Altace) 5 mg PO DAILY [facility] Last Admin: 06/12/17 10:12 Dose: 5 mg Timolol Maleate (Timoptic 0.5% Ophth Soln) 1 drop OU BID [facility] Last Admin: 06/12/17 17:03 Dose: 1 drop - Labs Labs: 06/12/17 05:26 06/13/17 05:15 PT 13.3 Seconds (9.8-13.1) H 06/11/17 04:30 INR 1.2 (0.9-1.2) 06/11/17 04:30 APTT 27.9 Seconds (25.6-37.1) 06/11/17 04:30
[2017-06-13 12:04] LABS: HEMATOCRIT 30.3 % (34.0-47.0); MEAN CELL VOLUME 88.9 fl (81.0-99.0); MEAN CORPUSCULAR HEMOGLOBIN 29.7 pg (27.0-31.0); MEAN CORPUSCULAR HGB CONC 33.4 g/dL (33.0-37.0); RED CELL DISTRIBUTION WIDTH 14.2 % (11.5-14.5); WHITE BLOOD COUNT 12.7 K/uL (4.8-10.8)
[2017-06-13 15:36] VITALS: RESP 20
--- NOTE | 2017-06-13 15:36 | CP.PCM.DIS ---
Provider - Provider Date of Admission: 06/10/17 14:02 Attending physician: Abdi Ferraro MD Time Spent in preparation of Discharge (in minutes): 30 Hospital Course - Lab Results Lab Results: Micro Results 06/10/17 14:15 Blood-Venous Blood Culture - Preliminary NO GROWTH AFTER 3 DAYS 06/10/17 14:55 Blood-Venous Blood Culture - Preliminary NO GROWTH AFTER 48 HOURS 06/10/17 14:44 Urine,Catheterized Urine Culture - Final No Growth (<1,000 CFU/ML) Most Recent Lab Values WBC 12.7 K/uL (4.8-10.8) H 06/13/17 11:58 RBC 3.41 Mil/uL (3.80-5.20) L 06/13/17 11:58 Hgb 10.1 g/dL (12.0-16.0) L 06/13/17 11:58 Hct 30.3 % (34.0-47.0) L 06/13/17 11:58 MCV 88.9 fl (81.0-99.0) 06/13/17 11:58 MCH 29.7 pg (27.0-31.0) 06/13/17 11:58 MCHC 33.4 g/dL (33.0-37.0) 06/13/17 11:58 RDW 14.2 % (11.5-14.5) 06/13/17 11:58 Plt Count 240 K/uL (130-400) 06/13/17 11:58 MPV 9.9 fl (7.2-11.7) 06/11/17 04:30 Neut % (Auto) 86.5 % (50.0-75.0) H 06/11/17 04:30 Lymph % (Auto) 4.0 % (20.0-40.0) L 06/11/17 04:30 [place] % (Auto) 9.4 % (0.0-10.0) 06/11/17 04:30 Eos % (Auto) 0.0 % (0.0-4.0) 06/11/17 04:30 Baso % (Auto) 0.1 % (0.0-2.0) 06/11/17 04:30 Neut # 18.0 K/uL (1.8-7.0) H 06/11/17 04:30 Lymph # 0.8 K/uL (1.0-4.3) L 06/11/17 04:30 [place] # 2.0 K/uL (0.0-0.8) H 06/11/17 04:30 Eos # 0.0 K/uL (0.0-0.7) 06/11/17 04:30 Baso # 0.0 K/uL (0.0-0.2) 06/11/17 04:30 Neutrophils % (Manual) 86 % (42-75) H 06/10/17 11:48 Band Neutrophils % 2 % (0-2) 06/10/17 11:48 Lymphocytes % (Manual) 4 % (20-50) L 06/10/17 11:48 Monocytes % (Manual) 7 % (0-10) 06/10/17 11:48 Myelocytes % 1 % (0-0) H 06/10/17 11:48 Toxic Granulation Present 06/10/17 11:48 Platelet Estimate Normal (NORMAL) 06/10/17 11:48 RBC Morphology Normal (NORMAL) 06/10/17 11:48 PT 13.3 Seconds (9.8-13.1) H 06/11/17 04:30 INR 1.2 (0.9-1.2) 06/11/17 04:30 APTT 27.9 Seconds (25.6-37.1) 06/11/17 04:30 pO2 24 mm/Hg (30-55) L 06/10/17 15:30 VBG pH 7.28 (7.32-7.43) L 06/10/17 15:30 VBG pCO2 52 mmHg (40-60) 06/10/17 15:30 VBG HCO3 20.9 mmol/L 06/10/17 15:30 VBG Total CO2 26.0 mmol/L (22-28) 06/10/17 15:30 VBG O2 Sat (Calc) 39.6 % (40-65) L 06/10/17 15:30 VBG Base Excess -3.0 mmol/L (0.0-2.0) L 06/10/17 15:30 VBG Potassium 4.6 mmol/L (3.6-5.2) 06/10/17 15:30 A-a O2 Difference 64.0 mm/Hg 06/10/17 13:08 Sodium 139.0 mmol/L (132-148) 06/10/17 15:30 Chloride 110.0 mmol/L (98-107) H 06/10/17 15:30 Glucose 230 mg/dL (65-105) H 06/10/17 15:30 Lactate 3.5 mmol/L (0.7-2.1) H 06/10/17 15:30 FiO2 21.0 % 06/10/17 15:30 Blood Gas Comments Vbg 06/10/17 13:08 Crit Value Called To Tj rodriguez 06/10/17 13:08 Crit Value Called By 15 06/10/17 13:08 Crit Value Read Back Y 06/10/17 13:08 Blood Gas Notified Time 1327 06/10/17 13:08 Sodium 132 mmol/l (132-148) 06/13/17 05:15 Potassium 3.3 MMOL/L (3.6-5.0) L 06/13/17 05:15 Chloride 99 mmol/L (98-107) 06/13/17 05:15 Carbon Dioxide 23 mmol/L (22-30) 06/13/17 05:15 Anion Gap 13 (10-20) 06/13/17 05:15 BUN 17 mg/dl (7-17) 06/13/17 05:15 Creatinine 0.7 mg/dl (0.7-1.2) 06/13/17 05:15 Est GFR ( Amer) > 60 06/13/17 05:15 Est GFR (Non-Af Amer) > 60 06/13/17 05:15 POC Glucose (mg/dL) 333 mg/dL (65-110) H 06/13/17 11:05 Random Glucose 213 mg/dL (65-105) H 06/13/17 05:15 Lactic Acid 1.5 MMOL/L (0.7-2.1) 06/11/17 04:30 Calcium 8.0 mg/dL (8.4-10.2) L 06/13/17 05:15 Iron 17 ug/dL (37-170) L 06/11/17 09:16 TIBC 253 ug/dL (250-450) 06/11/17 09:16 % Saturation 7 % (20-55) L 06/11/17 09:16 Ferritin 62.7 ng/Ml (11.1-264.0) 06/11/17 09:16 Total Bilirubin 0.4 mg/dl (0.2-1.3) 06/11/17 04:30 AST 26 U/L (14-36) 06/11/17 04:30 ALT 42 U/L (9-52) 06/11/17 04:30 Alkaline Phosphatase 62 U/L (38-126) 06/11/17 04:30 Troponin I < 0.0120 ng/mL (0.00-0.120) 06/10/17 11:48 NT-Pro-B Natriuret Pep 4030 pg/ml (0-900) H 06/11/17 04:30 Total Protein 6.6 G/DL (6.3-8.2) 06/11/17 04:30 Albumin 3.3 g/dL (3.5-5.0) L D 06/11/17 04:30 Globulin 3.3 gm/dL (2.2-3.9) 06/11/17 04:30 Albumin/Globulin Ratio 1.0 (1.0-2.1) 06/11/17 04:30 Lipase 148 U/L (23-300) 06/10/17 11:48 Vitamin B12 761 pg/mL (239-931) 06/11/17 09:16 Folate 13.9 ng/mL 06/11/17 09:16 Venous Blood Potassium 4.6 mmol/L (3.6-5.2) 06/10/17 15:30 Urine Color Cancelled 06/10/17 14:00 Urine Clarity Cancelled 06/10/17 14:00 Urine pH Cancelled 06/10/17 14:00 Ur Specific [place] Cancelled 06/10/17 14:00 Urine Protein Cancelled 06/10/17 14:00 Urine Glucose (UA) Cancelled 06/10/17 14:00 Urine Ketones Cancelled 06/10/17 14:00 Urine Blood Cancelled 06/10/17 14:00 Urine Nitrate Cancelled 06/10/17 14:00 Urine Bilirubin Cancelled 06/10/17 14:00 Urine Urobilinogen Cancelled 06/10/17 14:00 Ur Leukocyte Esterase Cancelled 06/10/17 14:00 Urine RBC (Auto) Cancelled 06/10/17 14:00 Urine WBC Clumps (Auto) Cancelled 06/10/17 14:00 Urine Microscopic WBC Cancelled 06/10/17 14:00 Ur Squamous Epith Cells Cancelled 06/10/17 14:00 Ur Transition Epith Cell Cancelled 06/10/17 14:00 Ur Renal Epithelial Cell Cancelled 06/10/17 14:00 Calcium Carbonate Cryst Cancelled 06/10/17 14:00 Calcium Phos [place] (Auto) Cancelled 06/10/17 14:00 Calcium Oxalate Crystal Cancelled 06/10/17 14:00 Leucine Crystals Cancelled 06/10/17 14:00 Cystine Crystals Cancelled 06/10/17 14:00 Uric Acid Crystals Cancelled 06/10/17 14:00 Triple Phos Crystals Cancelled 06/10/17 14:00 Tyrosine Crystals Cancelled 06/10/17 14:00 Other Crystals Cancelled 06/10/17 14:00 Amorphous Sediment Cancelled 06/10/17 14:00 Urine Bacteria Cancelled 06/10/17 14:00 Epithelial Casts (Auto) Cancelled 06/10/17 14:00 Fatty Casts Cancelled 06/10/17 14:00 Hyaline Casts Cancelled 06/10/17 14:00 Granular Casts (Auto) Cancelled 06/10/17 14:00 Waxy Casts Cancelled 06/10/17 14:00 Broad Casts Cancelled 06/10/17 14:00 RBC Casts Cancelled 06/10/17 14:00 WBC Casts Cancelled 06/10/17 14:00 Other Casts Cancelled 06/10/17 14:00 Urine Trichomonas Cancelled 06/10/17 14:00 Ur Yeast w Hyphae Cancelled 06/10/17 14:00 Urine Yeast (Budding) Cancelled 06/10/17 14:00 Urine Sperm (Auto) Cancelled 06/10/17 14:00 Ur Oval Fat Bodies Auto Cancelled 06/10/17 14:00 Stool Occult Blood Negative (NEGATIVE) 06/10/17 14:00 Vancomycin Trough 14.6 ug/mL (5.0-10.0) H 06/13/17 09:45 C. difficile Ag & Toxin Negative (NEGATIVE) 06/11/17 19:06 Blood Type A POSITIVE 06/10/17 11:48 Antibody Screen Negative 06/10/17 11:48 BBK History Checked Patient has bt 06/10/17 11:48 - Hospital Course Hospital Course: 81 yo ,f, PMHX/o hx of dementia DM 2 blindness both eyes, HTN Hyperlipidemia Hypothyroidism recently discharged from hospital 05/28/17 treated for recurrent UTI, is brought in via EMS with her daughter who states that she had several vomiting this morning coffee ground color in total 12 associated with several diarrheas nonbloddy unable to say amount. She report patient took a laxant last night. she also reports productive cough, unable to expectorate noticed while she was hospitalized. She denies fever, SOB on exertion, dysuria. Reports normal appetite. Pt admitted in telemetry x 3 days for HAP and severe sepsis under treatment with vanco and zosyn, also possible GI bleeding r/o. PAtient cleared by GI. clinically improving, afebrile, leukocytosis trending down. Patient cleared to go to TCU to complete antibiotic and PT. no complications during hospitalization , blood cx negative. Diagnosis (1) Severe Sepsis -resolved -secondary to PNA -lactic acid normalized -leukocytosis trending down (2) Acute upper GI bleed -resolved -GI Consult appreciated. no active bleeding -on liquid diet, advance as tolerated:no indication for endoscopic evaluation (3) HAP (hospital-acquired pneumonia) Status: Acute Comment: -recent hospitalization. -CT left lower lobe infiltrate. -c/w vanco, zosyn (4) Gastroenteritis -resolved Hydration Pantoprazol zofran Status: Acute 5) Hypokalemia -resolved -KCL -f/u CMP (6) systolic CHF exacerbation -Echo 05/23/17 EF 40-45 % Mod Ao stenosis -lasix -telemetry, no arrhythmia overnight (7) DVT prophylaxis Assessment and Plan: Lovenox Status: Acute Discharge Exam - Head Exam Head Exam: ATRAUMATIC, NORMOCEPHALIC - Eye Exam Eye Exam: Normal appearance - ENT Exam ENT Exam: Normal Exam - Respiratory Exam Respiratory Exam: Rales (left lung base). absent: Wheezes Additional comments: left lung base - Cardiovascular Exam Cardiovascular Exam: REGULAR RHYTHM, +S1, +S2 - GI/Abdominal Exam GI & Abdominal Exam: Normal Bowel Sounds, Soft. absent: Guarding, Rebound - Extremities Exam Extremities exam: normal inspection - Neurological Exam Neurological exam: Alert, Oriented x3 - Psychiatric Exam Psychiatric exam: Normal Affect, Normal Mood - Skin Skin Exam: Intact Discharge Plan - Discharge Medications Prescriptions: Piperacill/Tazo 3.375gm in Dex [Zosyn 3.375 Gm IV] 3.375 gm IVPB Q8 #21 bag Ramipril [Altace] 10 mg PO DAILY #30 cap Vancomycin 1 GM [Vancomycin 1GM in Normal Saline Addvantage] 1 gm IVPB DAILY #7 bag - Follow Up Plan Condition: GUARDED Disposition: HOME/ ROUTINE Instructions: Gastrointestinal Bleeding (DC), Sepsis (GEN), Community Acquired Pneumonia (DC) Referrals: Toni ORUORKE,MD Edel [Medical Doctor] - Madi Schroeder MD [Staff Provider] -
--- NOTE | 2017-06-13 15:40 | RAD ---
HISTORY: Pneumonia. Portable study 09:25. COMPARISON: 06/11/2017. Single-view chest 06/10/2017 CT abdomen and pelvis including lower lung plata FINDINGS: LUNGS: Left lower lobe infiltrate identified. No appreciable atelectasis right lower lobe. PLEURA: No significant pleural effusion identified, no pneumothorax apparent. CARDIOVASCULAR: Cardiomegaly. No evidence of acute, significant cardiovascular disease. OSSEOUS STRUCTURES: No significant abnormalities. VISUALIZED UPPER ABDOMEN: Normal. OTHER FINDINGS: None. IMPRESSION: Left lower lobe infiltrate suspicious for pneumonia similar to that seen previously.
[2017-06-13 20:06] VITALS: BP 121/70; PULSE 66; TEMP 98; O2SAT 99
[2017-06-13] MEDS: Latanoprost 0.005% Opht SOUTION OU SCH (21:06)
== END 2017-06-13 22:40 | DRG 871 ==
LOC: H.ER 10:55 → H.ERHOLD 14:02 → OBSVTOIN 14:02 → H.TEL 16:08
PROVIDERS: ADMIT Internal Medicine; ATTEND Internal Medicine
DX: A41.9 Sepsis, unspecified organism (principal); J18.9 Pneumonia, unspecified organism; I50.23 Acute on chronic systolic (congestive) heart failure; G30.9 Alzheimer's disease, unspecified; I11.0 Hypertensive heart disease with heart failure; K92.2 Gastrointestinal hemorrhage, unspecified; E11.319 Type 2 diabetes mellitus with unspecified diabetic retinopathy without macular edema; F02.80 Dementia in other diseases classified elsewhere, unspecified severity, without behavioral disturbance, psychotic disturbance, mood disturbance, and anxiety; R65.20 Severe sepsis without septic shock; H54.8 Legal blindness, as defined in USA; E78.5 Hyperlipidemia, unspecified; E03.9 Hypothyroidism, unspecified; Y95 Nosocomial condition; R79.89 Other specified abnormal findings of blood chemistry; K52.9 Noninfective gastroenteritis and colitis, unspecified; Z86.73 Personal history of transient ischemic attack (TIA), and cerebral infarction without residual deficits; Z88.6 Allergy status to analgesic agent; Z88.2 Allergy status to sulfonamides; F41.9 Anxiety disorder, unspecified; E78.00 Pure hypercholesterolemia, unspecified; K29.70 Gastritis, unspecified, without bleeding; E87.6 Hypokalemia; T50.1X5A Adverse effect of loop [high-ceiling] diuretics, initial encounter; K56.41 Fecal impaction

== ENCOUNTER 2017-06-13 13:16 | Inpatient (IN) | payer MEDICARE, OTHER ==
[2017-06-13 23:48] VITALS: BMI 28.6
[2017-06-14] MEDS ORDERED: Dextrose 50% SYRINGE Inj (50 ml) IVP STA (01:59)
[2017-06-14] MEDS ORDERED: Glucagon Recombinant 1 mg Inj IM PRN (02:18)
[2017-06-14] MEDS ORDERED: Sodium Chloride 3% for Inhalation 4 ML VIAL.NEB IH PRN (02:39)
[2017-06-14 04:28] VITALS: RESP 20
[2017-06-14] MEDS: Levothyroxine 75 MCG TAB PO SCH (06:11)
[2017-06-14] MEDS: Piperacillin/Tazobact 3.375 GM in Sodium Chloride 0.9% 100 ML IVPB SCH ×3 (06:11→17:28)
[2017-06-14] MEDS: Insulin Lispro (humaLOG) 100 Units/ml Inj SC SCH ×4 (07:40→22:30)
[2017-06-14] MEDS: Enoxaparin 40 mg Syringe SC SCH (08:42)
[2017-06-14] MEDS: Potassium Chloride 20 mEq ER Tab PO SCH (08:43)
[2017-06-14] MEDS: Brimonidine 0.2% 50 DROP/5 ML BOTTLE OU SCH ×2 (08:49→16:27)
[2017-06-14] MEDS ORDERED: Patient's Own Med (Ramipril [Altace] 10 MG) PO SCH (09:00)
[2017-06-14] MEDS: Pantoprazole 40 mg EC Tab PO SCH (09:41)
[2017-06-14] MEDS ORDERED: Artificial Tears Opht Soln OU PRN (20:28)
[2017-06-14] MEDS: PrednisoLONE 1% OPTH SUSP OU SCH (22:22)
[2017-06-14] MEDS: Ciprofloxacin 0.3% OPTH SOLN OU SCH (22:29)
[2017-06-14] MEDS: Latanoprost 0.005% Opht SOUTION OU SCH (22:38)
[2017-06-15] MEDS: Piperacillin/Tazobact 3.375 GM in Sodium Chloride 0.9% 100 ML IVPB SCH ×5 (00:08→23:48)
[2017-06-15] MEDS: Ciprofloxacin 0.3% OPTH SOLN OU SCH ×7 (01:00→21:39)
[2017-06-15] MEDS: Artificial Tears Opht Soln OU SCH ×4 (05:31→21:38)
[2017-06-15] MEDS: Levothyroxine 75 MCG TAB PO SCH (05:32)
--- NOTE | 2017-06-15 06:15 | HP ---
CHIEF COMPLAINT: Transfer from medical floor after treatment for pneumonia and COPD and for completion of treatment. HISTORY OF PRESENT ILLNESS: Patient is a very poor historian. Denies any specific complaint. PAST MEDICAL HISTORY: Significant for bilateral blindness, diabetes, dementia, hypertension, hypothyroidism, and elevated cholesterol. PAST SURGICAL HISTORY: Remarkable for bilateral eye surgery and right breast surgery. FAMILY HISTORY: Noncontributory. PERSONAL HISTORY: Patient is currently nonsmoker, nondrinker. No substance abuse. MEDICATIONS: Patient is on multiple medications, which is as per reconciliation sheet, which was reviewed and ordered. ALLERGIES: PATIENT IS ALLERGIC TO SULFA, ASPIRIN, AND METFORMIN. REVIEW OF SYSTEMS: Positive for generalized malaise, weakness, and occasional cough. Review of systems otherwise is negative for headache, dizziness, syncope, loss of consciousness, chest pain, shortness of breath, nausea, vomiting, diarrhea, constipation, any knee joint or extremity pain. Review of systems of all other organ systems is unremarkable. PHYSICAL EXAMINATION GENERAL: Well-built, well-nourished, overweight female, in no acute distress. VITAL SIGNS: Temperature 97.9, pulse 62, respirations 20, and blood pressure 122/56. HEENT: Patient is bilaterally blind. HEART: S1 and S2, normal and regular. LUNGS: Good bilateral air exchange. ABDOMEN: Soft and nontender. EXTREMITIES: No edema. No calf swelling. No tenderness. No acute ischemia. CENTRAL NERVOUS SYSTEM: Essentially unchanged. DIAGNOSTIC DATA: Available diagnostic data reviewed. IMPRESSION: Pneumonia and gastrointestinal bleed. PLAN: As ordered. Abdi Ferraro MD
[2017-06-15] MEDS: Insulin Lispro (humaLOG) 100 Units/ml Inj SC SCH ×4 (08:26→22:12)
[2017-06-15] MEDS: Brimonidine 0.2% 50 DROP/5 ML BOTTLE OU SCH ×2 (09:39→16:45)
[2017-06-15] MEDS: PrednisoLONE 1% OPTH SUSP OU SCH ×4 (09:40→21:40)
[2017-06-15] MEDS: Pantoprazole 40 mg EC Tab PO SCH (09:41)
[2017-06-15] MEDS: Enoxaparin 40 mg Syringe SC SCH (09:41)
[2017-06-15] MEDS: Potassium Chloride 20 mEq ER Tab PO SCH (09:41)
[2017-06-15] MEDS: Latanoprost 0.005% Opht SOUTION OU SCH (21:40)
[2017-06-16] MEDS: Ciprofloxacin 0.3% OPTH SOLN OU SCH ×7 (00:26→21:47)
[2017-06-16] MEDS: Artificial Tears Opht Soln OU SCH ×3 (04:00→16:01)
[2017-06-16] MEDS: Piperacillin/Tazobact 3.375 GM in Sodium Chloride 0.9% 100 ML IVPB SCH ×3 (05:40→18:00)
[2017-06-16] MEDS: Levothyroxine 75 MCG TAB PO SCH (05:41)
[2017-06-16] MEDS: Insulin Lispro (humaLOG) 100 Units/ml Inj SC SCH ×4 (06:37→22:44)
[2017-06-16] MEDS: Enoxaparin 40 mg Syringe SC SCH (08:44)
[2017-06-16] MEDS: Potassium Chloride 20 mEq ER Tab PO SCH (08:45)
[2017-06-16] MEDS: Pantoprazole 40 mg EC Tab PO SCH (08:45)
[2017-06-16] MEDS: PrednisoLONE 1% OPTH SUSP OU SCH ×4 (08:47→22:43)
[2017-06-16] MEDS: Brimonidine 0.2% 50 DROP/5 ML BOTTLE OU SCH ×2 (08:48→16:03)
[2017-06-16 10:35] LABS: HEMATOCRIT 35.8 % (34.0-47.0); MEAN CELL VOLUME 90.5 fl (81.0-99.0); MEAN CORPUSCULAR HEMOGLOBIN 29.4 pg (27.0-31.0); MEAN CORPUSCULAR HGB CONC 32.5 g/dL (33.0-37.0); RED CELL DISTRIBUTION WIDTH 14.1 % (11.5-14.5); WHITE BLOOD COUNT 11.3 K/uL (4.8-10.8)
[2017-06-16 10:43] LABS: ALB/GLOB RATIO 0.9 (1.0-2.1); ALKALINE PHOSPHATASE 63 U/L (38-126); ALT/SGPT 25 U/L (9-52); AST/SGOT 20 U/L (14-36); BILIRUBIN,TOTAL 0.4 mg/dl (0.2-1.3); BLOOD UREA NITROGEN 10 mg/dl (7-17); CALCIUM 8.2 mg/dL (8.4-10.2); CARBON DIOXIDE 23 mmol/L (22-30); CHLORIDE 100 mmol/L (98-107); GFR AFRICAN-AMERICAN > 60; GLUCOSE,RANDOM 248 mg/dL (65-105); SODIUM 132 mmol/l (132-148)
--- NOTE | 2017-06-16 12:48 | PN ---
DATE: 06/16/2017 SUBJECTIVE: The patient seen and examined. Interim events noted. The patient remains in Transitional Care Unit on IV antibiotic. The patient feels okay, but had two episodes of diarrhea today morning. Currently, the patient is having also episode of diarrhea, which has foul smell. No chest pain. No shortness of breath or abdominal pain. PHYSICAL EXAMINATION: GENERAL: The patient is in no acute distress. VITAL SIGNS: Stable. HEART: S1, S2 normal and regular. LUNGS: Good bilateral air exchange. ABDOMEN: Soft, nontender. No sign of acute abdomen. No guarding. No rigidity. No rebound. Bowel sounds are plus and normal. EXTREMITIES: No edema. No calf swelling. No tenderness. No acute ischemia. CENTRAL NERVOUS SYSTEM: Exam is essentially unchanged. DIAGNOSTIC DATA: Available diagnostic data reviewed. Overall, the patient is clinically stable. The patient has diarrhea. Plan as ordered. Case and plan discussed with the patient. Abdi Ferraro MD
[2017-06-16] MEDS ORDERED: Potassium Chloride 20 mEq ER Tab PO ONE ×2 (13:12→20:00)
[2017-06-16] MEDS: Latanoprost 0.005% Opht SOUTION OU SCH (21:47)
[2017-06-17] MEDS: Artificial Tears Opht Soln OU SCH ×5 (02:07→22:00)
[2017-06-17] MEDS: Ciprofloxacin 0.3% OPTH SOLN OU SCH ×6 (02:12→21:02)
[2017-06-17] MEDS: Piperacillin/Tazobact 3.375 GM in Sodium Chloride 0.9% 100 ML IVPB SCH ×2 (02:16→07:15)
[2017-06-17] MEDS: Levothyroxine 75 MCG TAB PO SCH (07:13)
[2017-06-17] MEDS: Insulin Lispro (humaLOG) 100 Units/ml Inj SC SCH ×4 (07:17→22:16)
[2017-06-17 07:49] LABS: BLOOD UREA NITROGEN 11 mg/dl (7-17); CALCIUM 7.9 mg/dL (8.4-10.2); CARBON DIOXIDE 22 mmol/L (22-30); CHLORIDE 101 mmol/L (98-107); GFR AFRICAN-AMERICAN > 60; GLUCOSE,RANDOM 293 mg/dL (65-105); POTASSIUM 4.2 MMOL/L (3.6-5.0); SODIUM 131 mmol/l (132-148)
--- NOTE | 2017-06-17 08:34 | PN ---
DATE: 06/15/2017 SUBJECTIVE: The patient is seen and examined. Interim events noted. The patient remains in Transitional Care Unit. The patient feels okay. Denies any specific complaint. No chest pain. No shortness of breath. No specific issue reported by nursing staff or the patient's family at bedside. PHYSICAL EXAMINATION GENERAL: The patient is in no acute distress. VITAL SIGNS: Stable. HEART: S1 and S2 normal, regular. LUNGS: Good bilateral air exchange. ABDOMEN: Soft and nontender. EXTREMITIES: No edema. No calf swelling. No tenderness. No acute ischemia. CENTRAL NERVOUS SYSTEM: Essentially unchanged. DIAGNOSTIC DATA: Available diagnostic data reviewed. ASSESSMENT AND PLAN: Overall, the patient is clinically stable and improving. Plan as ordered. Abdi Ferraro MD
[2017-06-17] MEDS: Enoxaparin 40 mg Syringe SC SCH (08:49)
[2017-06-17] MEDS: PrednisoLONE 1% OPTH SUSP OU SCH ×4 (08:50→22:14)
[2017-06-17] MEDS: Pantoprazole 40 mg EC Tab PO SCH (08:51)
[2017-06-17] MEDS: Brimonidine 0.2% 50 DROP/5 ML BOTTLE OU SCH ×2 (08:52→17:22)
--- NOTE | 2017-06-17 09:18 | CP.PCM.CON ---
<Esther Lugo - Last Filed: 06/17/17 10:37> History of Present Illness - History of Present Illness History of Present Illness: PGY4 Initial GI Consult/Follow-up Amanda Chamberlain is a 81 year old female with history of Dementia, Blindness, DM, HTN , HLD, Hypothyroidism, and sCHF EF 40-45% (05/23/17) who initially presented with documented coffee-ground emesis. Patient oriented to person and place. Admited to mid abdominal pain. Denied any fever, chills, sweats, or diarrhea. On record review, endorsed to have over ten episodes of coffee-ground emesis. Nursing staff denies vomiting since admission and transfer to TCU. Recent antibiotics on discharge 05/28/17 for Pseudomonas UTI. Active treatment of severe sepsis secondary to hospital acquired pneumonia. Prior EGD 02/2015 showed esophagitis, H pylori negative gastritis, duodenitis, and villous shortening. Hgb has been stable since admission and is now at ~ 11. No reports of melena, hematemsis or coffee-ground emesis. RN does note some soft BM over that last few days. Previous c.diff noted to be neg. Family- unable to confirm Social-unable to confirm, record review- no tobacco,alcohol, illicit drug use Surgery-unable to confirm, record review- B/L cornea implant ROS: 12 point ROS conducted, neg other than above Past Patient History - Infectious Disease Hx of Infectious Diseases: None - Tetanus Immunizations Tetanus Immunization: Unknown - Past Medical History & Family History Past Medical History?: Yes - Past Social History Smoking Status: Never Smoked - CARDIAC Hx Congestive Heart Failure: Yes Hx Hypercholesterolemia: Yes Hx Hypertension: Yes - PULMONARY Hx Pneumonia: Yes - NEUROLOGICAL Hx Alzheimer's Disease: Yes Hx Dementia: Yes Hx Migraine: Yes Hx Transient Ischemic Attacks (TIA): Yes (2013) - HEENT Hx HEENT Problems: Yes Hx Cataracts: Yes (s/p surgery) Hx Glaucoma: Yes Other/Comment: Hx legally blind. Hx Diabetic Retinopathy - RENAL Hx Chronic Kidney Disease: No - ENDOCRINE/METABOLIC Hx Diabetes Mellitus Type 2: Yes Hx Hypothyroidism: Yes - HEMATOLOGICAL/ONCOLOGICAL Hx AIDS: No Hx Anemia: Yes Hx Human Immunodeficiency Virus (HIV): No - INTEGUMENTARY Hx Dermatological Problems: No - MUSCULOSKELETAL/RHEUMATOLOGICAL Hx Arthritis: No Hx Falls: No Hx Fractures: Yes (rt wrist/elbow) - GASTROINTESTINAL Hx Diverticulitis: Yes (Diverticulosis) Hx Gastritis: Yes - GENITOURINARY/GYNECOLOGICAL Hx Genitourinary Disorders: Yes Hx Urinary Tract Infection: Yes Other/Comment: left breast cyst - PSYCHIATRIC Hx Anxiety: Yes Hx Depression: Yes Hx Substance Use: No - SURGICAL HISTORY Hx Coronary Artery Bypass Graft: No Hx Tonsillectomy: Yes (partial thyroidectomy) - ANESTHESIA Hx Anesthesia: Yes Hx Anesthesia Reactions: Yes (HALLUCINATION, CONFUSION) Hx Malignant Hyperthermia: No Meds Allergies/Adverse Reactions: Allergies Allergy/AdvReac Type Severity Reaction Status Date / Time aspirin Allergy NAUSEA Verified 05/13/17 09:32 Sulfa (Sulfonamide Allergy RASH Verified 05/13/17 09:32 Antibiotics) Iodinated Contrast- Oral and AdvReac VOMITING Verified 05/13/17 09:32 IV Dye metformin AdvReac DIARRHEA Verified 05/13/17 09:32 - Medications Medications: Current Medications Acetaminophen (Tylenol 325mg Tab) 650 mg PO Q6 PRN PRN Reason: Headache Last Admin: 06/16/17 22:45 Dose: 650 mg Artificial Tears (Artificial Tears) 1 drop OU Q6 [facility] Last Admin: 06/17/17 05:04 Dose: Not Given Brimonidine Tartrate (Alphagan 0.2% Opht) 1 drop OU BID [facility] Last Admin: 06/17/17 08:52 Dose: 1 drop Ciprofloxacin (Ciloxan 0.3% Ophth Soln) 1 drop OU Q4 [facility] Last Admin: 06/17/17 08:50 Dose: 1 drop Dextrose (Glutose 15) 15 gm PO ONCE PRN PRN Reason: Hypoglycemia Donepezil HCl (Aricept) 10 mg PO HS [facility] Last Admin: 06/16/17 21:13 Dose: 10 mg Enoxaparin Sodium (Lovenox) 40 mg SC DAILY [facility] PRN Reason: Protocol Last Admin: 06/17/17 08:49 Dose: 40 mg Furosemide (Lasix) 20 mg PO DAILY [facility] Last Admin: 06/17/17 08:52 Dose: 20 mg Glucagon (Glucagen Diagnostic Kit) 1 mg IM ONCE PRN PRN Reason: Hypoglycemia Piperacillin Sod/Tazobactam (Sod 3.375 gm/ Sodium Chloride) 100 mls @ 100 mls/ hr IVPB 0600,1200,1800,0000 [facility] PRN Reason: Protocol Last Admin: 06/17/17 07:15 Dose: 100 mls/hr Vancomycin HCl 1 gm/ Sodium (Chloride) 250 mls @ 166.667 mls/hr IVPB Q24H [facility] PRN Reason: Protocol Last Admin: 06/16/17 17:00 Dose: Not Given Insulin Human Lispro (Humalog) 0 units SC ACHS [facility] PRN Reason: Protocol Last Admin: 06/17/17 07:17 Dose: 4 unit Latanoprost (Xalatan Opht) 1 drop OU HS [facility] Last Admin: 06/16/17 21:47 Dose: 1 drop Levothyroxine Sodium (Synthroid) 75 mcg PO DAILY@0630 [facility] Last Admin: 06/17/17 07:13 Dose: 75 mcg Memantine (Namenda) 10 mg PO BID [facility] Last Admin: 06/17/17 08:50 Dose: 10 mg Metformin HCl (Glucophage) 500 mg PO BIDWM [facility] Last Admin: 06/17/17 08:50 Dose: 500 mg Metoprolol Tartrate (Lopressor) 12.5 mg PO DAILY PRN PRN Reason: SBP >139 Last Admin: 06/16/17 08:44 Dose: 12.5 mg Metronidazole (Flagyl) 500 mg PO Q8 [facility] PRN Reason: Protocol Last Admin: 06/17/17 08:50 Dose: 500 mg Ondansetron HCl (Zofran Inj) 4 mg IVP Q6 PRN PRN Reason: Nausea/Vomiting Pantoprazole Sodium (Protonix Ec Tab) 40 mg PO DAILY [facility] Last Admin: 06/17/17 08:51 Dose: 40 mg Prednisolone Acetate (Pred Forte 1% Opht Susp) 1 drop OU QID [facility] Last Admin: 06/17/17 08:50 Dose: 1 drop Ramipril (Altace) 10 mg PO DAILY [facility] Last Admin: 06/17/17 08:51 Dose: 10 mg Timolol Maleate (Timoptic 0.5% Ophth Soln) 1 drop OU BID [facility] Last Admin: 06/17/17 08:51 Dose: 1 drop Physical Exam - Constitutional Appears: No Acute Distress, Chronically Ill - Head Exam Head Exam: ATRAUMATIC, NORMOCEPHALIC - Eye Exam Eye Exam: Normal appearance - ENT Exam ENT Exam: Mucous Membranes Moist - Respiratory Exam Respiratory Exam: Clear to Auscultation Bilateral, NORMAL BREATHING PATTERN. absent: Rales, Rhonchi, Wheezes, Respiratory Distress - Cardiovascular Exam Cardiovascular Exam: REGULAR RHYTHM, +S1, +S2 - GI/Abdominal Exam GI & Abdominal Exam: Normal Bowel Sounds, Soft. absent: Guarding, Hypoactive Bowel Sounds, Organomegaly, Tenderness - Extremities Exam Extremities exam: Negative for: joint swelling, pedal edema - Neurological Exam Neurological exam: Alert, Oriented x3 - Psychiatric Exam Psychiatric exam: Normal Affect, Normal Mood - Skin Skin Exam: Dry, Intact, Normal Color, Warm Results - Vital Signs Recent Vital Signs: Last Vital Signs Temp 97.2 F L 06/17/17 08:12 Pulse 76 06/17/17 08:12 Resp 20 06/17/17 08:12 BP 166/69 H 06/17/17 08:52 Pulse Ox 93 L 06/17/17 08:12 - Labs Result Diagrams: 06/16/17 10:00 06/17/17 07:03 Labs: Laboratory Results - last 24 hr 06/16/17 06/16/17 06/16/17 10:00 10:00 10:00 WBC 11.3 H RBC 3.95 Hgb 11.6 L Hct 35.8 MCV 90.5 MCH 29.4 MCHC 32.5 L RDW 14.1 Plt Count 267 Sodium 132 Potassium 3.0 L Chloride 100 Carbon Dioxide 23 Anion Gap 12 BUN 10 Creatinine 0.7 Est GFR ( Amer) > 60 Est GFR (Non-Af Amer) > 60 POC Glucose (mg/dL) Random Glucose 248 H Hemoglobin A1c 9.5 H Calcium 8.2 L Total Bilirubin 0.4 AST 20 ALT 25 Alkaline Phosphatase 63 Total Protein 7.0 Albumin 3.3 L Globulin 3.7 Albumin/Globulin Ratio 0.9 L 06/16/17 06/16/17 06/16/17 11:25 15:52 20:26 WBC RBC Hgb Hct MCV MCH MCHC RDW Plt Count Sodium Potassium Chloride Carbon Dioxide Anion Gap BUN Creatinine Est GFR ( Amer) Est GFR (Non-Af Amer) POC Glucose (mg/dL) 235 H 280 H 329 H Random Glucose Hemoglobin A1c Calcium Total Bilirubin AST ALT Alkaline Phosphatase Total Protein Albumin Globulin Albumin/Globulin Ratio 06/17/17 06/17/17 06:25 07:03 WBC RBC Hgb Hct MCV MCH MCHC RDW Plt Count Sodium 131 L Potassium 4.2 Chloride 101 Carbon Dioxide 22 Anion Gap 12 BUN 11 Creatinine 0.9 Est GFR ( Amer) > 60 Est GFR (Non-Af Amer) 60 POC Glucose (mg/dL) 255 H Random Glucose 293 H Hemoglobin A1c Calcium 7.9 L Total Bilirubin AST ALT Alkaline Phosphatase Total Protein Albumin Globulin Albumin/Globulin Ratio Assessment & Plan - Assessment and Plan (Free Text) Assessment: Amanda Chamberlain is a 81 year old female with history of Dementia, Blindness, DM, HTN , HLD, Hypothyroidism, recent antibiotics 05/28/17 for Pseudomonas UTI, and sCHF EF 40-45% (05/23/17) who was initially seen for possible coffee-ground emesis. She was recently transferred from medical service to TICU after active treatment of severe sepsis secondary to hospital acquired pneumonia. Prior EGD showed esophagitis, H pylori negative gastritis, duodenitis, and villous shortening. Prior to discharge it was recommend pt have conservative management. coffee-ground emesis, no further episodes Normocytic Anemia, now at baseline Plan: -no recurrent vomiting -Cdiff negative 06/10, 06/11 -FOBT negative -H/H improved and at baseline -no overt GI blood loss -supportive care: antiemetics, PPI, IVFs -continue current diet -rest of car as per primary team -will sign off D/W Dr. Scott <Ko Scott - Last Filed: 06/17/17 11:40> Meds - Medications Medications: Current Medications Acetaminophen (Tylenol 325mg Tab) 650 mg PO Q6 PRN PRN Reason: Headache Last Admin: 06/16/17 22:45 Dose: 650 mg Amoxicillin/Clavulanate Potassium (Augmentin 875 Mg-125 Mg Tab) 1 tab PO Q12 [facility] PRN Reason: Protocol Artificial Tears (Artificial Tears) 1 drop OU Q6 [facility] Last Admin: 06/17/17 05:04 Dose: Not Given Brimonidine Tartrate (Alphagan 0.2% Opht) 1 drop OU BID [facility] Last Admin: 06/17/17 08:52 Dose: 1 drop Ciprofloxacin (Ciloxan 0.3% Ophth Soln) 1 drop OU Q4 [facility] Last Admin: 06/17/17 08:50 Dose: 1 drop Dextrose (Glutose 15) 15 gm PO ONCE PRN PRN Reason: Hypoglycemia Donepezil HCl (Aricept) 10 mg PO HS [facility] Last Admin: 06/16/17 21:13 Dose: 10 mg Enoxaparin Sodium (Lovenox) 40 mg SC DAILY [facility] PRN Reason: Protocol Last Admin: 06/17/17 08:49 Dose: 40 mg Furosemide (Lasix) 20 mg PO DAILY [facility] Last Admin: 06/17/17 08:52 Dose: 20 mg Glucagon (Glucagen Diagnostic Kit) 1 mg IM ONCE PRN PRN Reason: Hypoglycemia Insulin Human Lispro (Humalog) 0 units SC ACHS [facility] PRN Reason: Protocol Last Admin: 06/17/17 07:17 Dose: 4 unit Insulin Lispro Protam/Lispro Human (Humalog Mix 75/25) 50 units SC BRK [facility] Insulin Lispro Protam/Lispro Human (Humalog Mix 75/25) 10 units SC DIN [facility] Latanoprost (Xalatan Opht) 1 drop OU [facility] Last Admin: 06/16/17 21:47 Dose: 1 drop Levothyroxine Sodium (Synthroid) 75 mcg PO DAILY@0630 [facility] Last Admin: 06/17/17 07:13 Dose: 75 mcg Memantine (Namenda) 10 mg PO BID [facility] Last Admin: 06/17/17 08:50 Dose: 10 mg Metoprolol Tartrate (Lopressor) 12.5 mg PO DAILY PRN PRN Reason: SBP >139 Last Admin: 06/16/17 08:44 Dose: 12.5 mg Ondansetron HCl (Zofran Inj) 4 mg IVP Q6 PRN PRN Reason: Nausea/Vomiting Pantoprazole Sodium (Protonix Ec Tab) 40 mg PO DAILY [facility] Last Admin: 06/17/17 08:51 Dose: 40 mg Prednisolone Acetate (Pred Forte 1% Opht Susp) 1 drop OU QID [facility] Last Admin: 06/17/17 08:50 Dose: 1 drop Ramipril (Altace) 10 mg PO DAILY [facility] Last Admin: 06/17/17 08:51 Dose: 10 mg Timolol Maleate (Timoptic 0.5% Ophth Soln) 1 drop OU BID [facility] Last Admin: 06/17/17 08:51 Dose: 1 drop Results - Vital Signs Recent Vital Signs: Last Vital Signs Temp 97.2 F L 06/17/17 08:12 Pulse 88 06/17/17 09:58 Resp 20 06/17/17 08:12 BP 130/69 06/17/17 09:58 Pulse Ox 95 06/17/17 09:58 - Labs Result Diagrams: 06/16/17 10:00 06/17/17 07:03 Labs: Laboratory Results - last 24 hr 06/16/17 06/16/17 06/16/17 10:00 15:52 20:26 Sodium Potassium Chloride Carbon Dioxide Anion Gap BUN Creatinine Est GFR ( Amer) Est GFR (Non-Af Amer) POC Glucose (mg/dL) 280 H 329 H Random Glucose Hemoglobin A1c 9.5 H Calcium 06/17/17 06/17/17 06/17/17 06:25 07:03 10:43 Sodium 131 L Potassium 4.2 Chloride 101 Carbon Dioxide 22 Anion Gap 12 BUN 11 Creatinine 0.9 Est GFR ( Amer) > 60 Est GFR (Non-Af Amer) 60 POC Glucose (mg/dL) 255 H 316 H Random Glucose 293 H Hemoglobin A1c Calcium 7.9 L Attending/Attestation - Attestation I have personally seen and examined this patient.: Yes I have fully participated in the care of the patient.: Yes I have reviewed all pertinent clinical information: Yes Notes (Text): 06/17/17 11:38 81 year old female with h/o blindness, Dementia, Blindness, DM, HTN, HLD, Hypothyroidism, and CHF admitted with sepsis/pneumonia, now getting rehab. Original consult was due to concern over coffee ground emesis. No further vomiting or overt signs of GI blood loss. Tolerating her diet. Chronic anemia which is stable. Supportive measures only. No acute GI intervention. May give PPI daily.
--- NOTE | 2017-06-17 10:28 | PN ---
DATE: 06/17/2017 SUBJECTIVE: The patient is seen and examined. Interim events noted. The patient remains in Transitional Care Unit. Not able to provide informative history or review of systems, but denies any specific complaint of chest pain or shortness of breath. Diarrhea persists, but improving. No abdominal pain. PHYSICAL EXAMINATION: GENERAL: The patient is in no acute distress. VITAL SIGNS: Stable. HEART: S1 and S2, normal and regular. LUNGS: Good bilateral air exchange. ABDOMEN: Soft, nontender. No organomegaly. No fluid. Bowel sounds are plus. No sign of acute abdomen. No guarding. No rigidity. No rebound. EXTREMITIES: No edema. No calf swelling. No tenderness. No acute ischemia. CENTRAL NERVOUS SYSTEM: Essentially unchanged. DIAGNOSTIC DATA: Available diagnostic data reviewed. ASSESSMENT AND PLAN: Overall, the patient's general medical condition is stable. Plan as ordered. Abdi Ferraro MD
[2017-06-17] MEDS: Insulin Lispro Mix 75/25 100 units/ml (HumaLog) 10ml SC SCH (17:23)
[2017-06-17] MEDS: Amoxicillin-Clav 875-125 mg Tab PO SCH (21:02)
[2017-06-17] MEDS: Latanoprost 0.005% Opht SOUTION OU SCH (22:17)
[2017-06-18] MEDS: Ciprofloxacin 0.3% OPTH SOLN OU SCH ×5 (01:13→16:33)
[2017-06-18] MEDS: Artificial Tears Opht Soln OU SCH ×3 (04:31→16:34)
[2017-06-18] MEDS: Levothyroxine 75 MCG TAB PO SCH (06:27)
[2017-06-18] MEDS: Insulin Lispro (humaLOG) 100 Units/ml Inj SC SCH ×3 (07:23→16:34)
[2017-06-18] MEDS ORDERED: Insulin Lispro Mix 75/25 100 units/ml (HumaLog) 10ml SC SCH (08:00)
[2017-06-18] MEDS: Brimonidine 0.2% 50 DROP/5 ML BOTTLE OU SCH ×2 (08:12→16:34)
[2017-06-18] MEDS: Enoxaparin 40 mg Syringe SC SCH (08:17)
[2017-06-18] MEDS: Amoxicillin-Clav 875-125 mg Tab PO SCH (08:17)
[2017-06-18] MEDS: PrednisoLONE 1% OPTH SUSP OU SCH ×3 (08:18→16:35)
[2017-06-18] MEDS: Pantoprazole 40 mg EC Tab PO SCH (08:20)
--- NOTE | 2017-06-18 11:20 | PN ---
DATE: 06/18/2017 SUBJECTIVE: The patient is seen and examined. Interim events noted. The patient remains in Transitional Care Unit. The patient is not able to provide informative history or review of systems, but feels okay. Diarrhea resolved. No chest pain. No shortness of breath. No specific issue reported by nursing staff. PHYSICAL EXAMINATION GENERAL: The patient is in no acute distress. VITAL SIGNS: Stable. HEART: S1, S2 normal and regular. LUNGS: Good bilateral air exchange. ABDOMEN: Soft, nontender. No sign of acute abdomen. No guarding. No rigidity. No rebound. Bowel sounds are plus and normal. EXTREMITIES: No edema. No calf swelling. No tenderness. No acute ischemia. CENTRAL NERVOUS SYSTEM: Essentially unchanged. DIAGNOSTIC DATA: Available diagnostic data reviewed. ASSESSMENT AND PLAN: Overall, the patient's general medical condition is stable. Plan as ordered. Abdi Ferraro MD
[2017-06-18] MEDS: Insulin Lispro Mix 75/25 100 units/ml (HumaLog) 10ml SC SCH (16:42)
[2017-06-18 17:53] VITALS: BP 122/56; PULSE 72; TEMP 98.1; O2SAT 94
== END 2017-06-18 19:30 | disposition home or self-care (01) | DRG 195 ==
LOC: H.TCU 23:52
PROVIDERS: ADMIT Internal Medicine; ATTEND Internal Medicine
PROC: 3E03329 Introduction of Other Anti-infective into Peripheral Vein, Percutaneous Approach (ICD-10-PCS; principal; 2017-06-13)
PROC: F07Z9FZ Gait Training/Functional Ambulation Treatment using Assistive, Adaptive, Supportive or Protective Equipment (ICD-10-PCS; 2017-06-13)
PROC: F08Z4FZ Home Management Treatment using Assistive, Adaptive, Supportive or Protective Equipment (ICD-10-PCS; 2017-06-13)
PROC: F07M6FZ Therapeutic Exercise Treatment of Musculoskeletal System - Whole Body using Assistive, Adaptive, Supportive or Protective Equipment (ICD-10-PCS; 2017-06-14)
DX: J18.9 Pneumonia, unspecified organism (principal); I11.0 Hypertensive heart disease with heart failure; I50.9 Heart failure, unspecified; E11.319 Type 2 diabetes mellitus with unspecified diabetic retinopathy without macular edema; D64.9 Anemia, unspecified; G30.9 Alzheimer's disease, unspecified; F02.80 Dementia in other diseases classified elsewhere, unspecified severity, without behavioral disturbance, psychotic disturbance, mood disturbance, and anxiety; Y95 Nosocomial condition; H54.8 Legal blindness, as defined in USA; E78.5 Hyperlipidemia, unspecified; E03.9 Hypothyroidism, unspecified; R19.7 Diarrhea, unspecified; Z86.73 Personal history of transient ischemic attack (TIA), and cerebral infarction without residual deficits; Z87.01 Personal history of pneumonia (recurrent); Z87.440 Personal history of urinary (tract) infections; Z88.6 Allergy status to analgesic agent; Z88.2 Allergy status to sulfonamides

== ENCOUNTER 2017-12-16 08:58 | Inpatient (IN) | payer MEDICARE, OTHER ==
[2017-12-16] MEDS ORDERED: Sodium Chloride 0.9% 1,000 ML IV STA (09:29)
--- NOTE | 2017-12-16 09:53 | ED PDOC ---
HPI:Nausea, Vomiting, Diarrhea Time Seen by Provider: 12/16/17 09:14 Chief Complaint (Nursing): GI Problem Chief Complaint (Provider): Vomiting and Diarrhea History Per: Patient (poor historian), Family (daughter) History/Exam Limitations: clinical condition (dementia) Onset/Duration Of Symptoms: Days Current Symptoms Are (Timing): Still Present Associated Symptoms: Vomiting (multiple episodes and non bilious and non bloody ), Diarrhea (multiple episodes and watery). denies: Fever Additional Complaint(s): 82 year old female with a history of hypertension, diabetes, and hypothyroidism was brought to the ED by her daughter who states the patient had multiple episodes of non-bilious and non-bloody vomit and several episodes of watery diarrhea. Reports after vomiting, patient felt dizzy and passed out for a few seconds. She returned to baseline and felt confused due to dementia. Patient did not have any seizure like activity. Daughter states patient does not have fever, abdominal pain or head injury. Of note: history was obtained from the daughter because patient has a history of dementia and does not talk much. 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; L side weakness), Dementia, Depression, Diabetes, Diverticulitis (Diverticulosis), Fractures (rt wrist/elbow), Gastritis, HTN, Hypercholesterolemia, Hyperlipidemia, Hypothyroidism, Migraine, Pneumonia, TIA ( 2013) Denies: Arthritis, HIV, Chronic Kidney Disease - Surgical History Surgical History: Tonsillectomy (partial thyroidectomy) Denies: CABG - Family History Family History: States: Unknown Family Hx - Social History Current smoker - smoking cessation education provided: No Alcohol: None Drugs: Denies - Home Medications Home Medications: Ambulatory Orders Medication Instructions Recorded Acetaminophen/Butalbital/Caf 1 tab PO Q8H PRN 08/23/15 [Fioricet] Atorvastatin [Lipitor] 40 mg PO HS 08/23/15 Cholecalciferol [Vitamin D 1000 IU] 1,000 units PO DAILY 08/23/15 Clopidogrel [Plavix] 75 mg PO DAILY 08/23/15 Donepezil [Aricept] 10 mg PO HS 08/23/15 Latanoprost 0.005% Opht [Xalatan 1 drop LEFTEYE HS 08/23/15 Opht] Meclizine HCl [Antivert] 25 mg PO TID PRN 08/23/15 Memantine [Namenda] 10 mg PO Q12 08/23/15 Prednisolone Acetate [Pred Forte] 1 drop LEFTEYE QID 08/23/15 Sertraline [Zoloft] 50 mg PO HS 08/23/15 Metoprolol Tartrate [Lopressor] 12.5 mg PO DAILY PRN 10/02/16 Levothyroxine [Synthroid] 75 mcg PO DAILY@0630 tab 05/28/17 Brimonidine Tartrate/Timolol 1 drop LEFTEYE Q12 06/10/17 [Combigan 0.2%-0.5% Eye Drops] Insulin Aspart Prot/Insuln Asp 10 unit SC DIN 06/10/17 [Novolog Mix 70-30 Vial] Insulin Aspart Prot/Insuln Asp 40 unit SC BRK 06/10/17 [Novolog Mix 70-30 Vial] Ranitidine HCl [Zantac] 150 mg PO BID 06/10/17 cycloSPORINE [Restasis] 1 drop LEFTEYE Q12H 06/10/17 risperiDONE [RisperDAL Tab] 0.25 mg PO QAM 06/10/17 Aspirin [Ecotrin] 81 mg PO Q48H 12/16/17 Carboxymethylcellulose Sodium 1 drop RIGHTEYE HS 12/16/17 [Lubricant Eye Drops] Cephalexin [Keflex] 500 mg PO Q12 12/16/17 Ramipril [Altace] 5 mg PO DAILY 12/16/17 Risperidone [Risperdal] 0.5 mg PO HS 12/16/17 - Allergies Allergies/Adverse Reactions: Allergies Allergy/AdvReac Type Severity Reaction Status Date / Time aspirin Allergy NAUSEA Verified 05/13/17 09:32 Sulfa (Sulfonamide Allergy RASH Verified 05/13/17 09:32 Antibiotics) Iodinated Contrast- Oral and AdvReac VOMITING Verified 05/13/17 09:32 IV Dye metformin AdvReac DIARRHEA Verified 05/13/17 09:32 Review of Systems ROS Statement: Except As Marked, All Systems Reviewed And Found Negative Constitutional: Negative for: Fever Gastrointestinal: Positive for: Vomiting (non bilious and non bloody), Diarrhea (watery). Negative for: Abdominal Pain Neurological: Positive for: Dizziness Physical Exam - Reviewed Nursing Documentation Reviewed: Yes Vital Signs Reviewed: Yes - Physical Exam Appears: Positive for: Non-toxic, No Acute Distress Head Exam: Positive for: ATRAUMATIC, NORMAL INSPECTION, NORMOCEPHALIC Skin: Positive for: Pallor Eye Exam: Positive for: EOMI, Normal appearance, PERRL ENT: Positive for: Normal ENT Inspection, Other (mucous membrane are dry) Neck: Positive for: Normal, Painless ROM, Supple. Negative for: Decreased ROM Cardiovascular/Chest: Positive for: Regular Rate, Rhythm. Negative for: Murmur Respiratory: Positive for: Normal Breath Sounds. Negative for: Decreased Breath Sounds, Accessory Muscle Use, Respiratory Distress Gastrointestinal/Abdominal: Positive for: Normal Exam, Bowel Sounds, Soft. Negative for: Tenderness, Guarding, Rebound Back: Positive for: Normal Inspection. Negative for: L CVA Tenderness, R CVA Tenderness Extremity: Positive for: Normal ROM. Negative for: Tenderness, Pedal Edema, Deformity Neurologic/Psych: Positive for: Alert, Oriented (x1 at baseline) - Laboratory Results Result Diagrams: 12/17/17 07:49 12/17/17 07:49 - ECG O2 Sat by Pulse Oximetry: 97 (RA) Pulse Ox Interpretation: Normal Medical Decision Making Medical Decision Making: Time: 926 Initial Impression: vomiting, diarrhea, syncopal episode Differential Diagnosis includes but is not limited to: gastroenteritis, dehydration, sepsis associated with syncopal episode post vomiting due to orthostatic hypotension Initial Plan: --VBG Shock Panel --EKG --CMP --CBC w/ Differential --Normal Saline 1000 mls/hr --Zofran Inj 4mg IVP --Blood Culture --IV Insertion --C Diff Toxin A B Stat --Urinalysis --Reevaluation Labs reveal positive Cdiff, elevated WBC, elevated lactic acid, consistent with severe Cdiff colitis with dehydrations, hypovolemia, and sepsis. Scribe Attestation: Documented by Jayna Aggarwal, acting as a scribe for Ricky Dennis MD Provider Scribe Attestation: All medical record entries made by the Scribe were at my direction and personally dictated by me. I have reviewed the chart and agree that the record accurately reflects my personal performance of the history, physical exam, medical decision making, and the department course for this patient. I have also personally directed, reviewed, and agree with the discharge instructions and disposition. Disposition - Clinical Impression Clinical Impression: C. difficile colitis, Hypovolemic shock, Sepsis, Syncope - Patient ED Disposition Is Patient to be Admitted: Yes Discussed With DrSathya: Morris Mcginnis Doctor Will See Patient In The: Hospital Counseled Patient/Family Regarding: Studies Performed, Diagnosis - Disposition Disposition Time: 11:55 Condition: FAIR - Pt Status Changed To: Hospital Disposition Of: Inpatient - Admit Certification Admit to Inpatient:: After my assessment, the patient will require hospitalization for at least two midnights. This is because of the severity of symptoms shown, intensity of services needed, and/or the medical risk in this patient being treated as an outpatient. - POA Present On Arrival: Falls Or Trauma
[2017-12-16 09:55] LABS: BASO # 0.1 K/uL (0.0-0.2); BASO % 0.4 % (0.0-2.0); EOS # 0.1 K/uL (0.0-0.7); EOS % 0.4 % (0.0-4.0); HEMOGLOBIN 12.3 g/dL (12.0-16.0); LYMPH # 0.6 K/uL (1.0-4.3); MEAN CELL VOLUME 90.7 fl (81.0-99.0); MEAN CORPUSCULAR HEMOGLOBIN 30.1 pg (27.0-31.0); MEAN CORPUSCULAR HGB CONC 33.2 g/dL (33.0-37.0); MEAN PLATELET VOLUME 9.7 fl (7.2-11.7); MONO # 1.1 K/uL (0.0-0.8); MONO % 3.9 % (0.0-10.0); NEUT # 25.8 K/uL (1.8-7.0); NEUT % 93.3 % (50.0-75.0); PLATELET COUNT 376 K/uL (130-400); RBC 4.07 Mil/uL (3.80-5.20); WHITE BLOOD COUNT 27.6 K/uL (4.8-10.8)
[2017-12-16 09:59] LABS: VENOUS BLOOD GAS PCO2 52 mmHg (40-60); VENOUS BLOOD GAS PO2 26 mm/Hg (30-55); VENOUS BLOOD PH 7.28 (7.32-7.43)
[2017-12-16 10:04] LABS: ALBUMIN 3.8 g/dL (3.5-5.0); CALCIUM 9.1 mg/dL (8.4-10.2)
[2017-12-16] MEDS ORDERED: Potassium CL 10mEq/100ml 100 ML IVPB ONE (10:07)
[2017-12-16] MEDS ORDERED: metroNIDAZOLE 500mg/100ml NS 100 ML IVPB STA (10:08)
[2017-12-16] MEDS ORDERED: Ciprofloxacin 400mg/200ml D5W 400 MG/200 ML BAG IVPB STA (10:09)
[2017-12-16] MEDS ORDERED: metroNIDAZOLE 500mg/100ml NS 100 ML IVPB ONE (10:20)
[2017-12-16] MEDS ORDERED: Ciprofloxacin 400mg/200ml D5W 400 MG/200 ML BAG IVPB ONE (10:20)
[2017-12-16] MEDS ORDERED: Potassium Chloride 20 mEq 100 ML ONE (10:20)
[2017-12-16 11:15] LABS: BANDS 5 % (0-2); LYMPHOCYTE 6 % (20-50); MONOCYTE 5 % (0-10); NEUTROPHIL 83 % (42-75); PLATELET ESTIMATE NORMAL (NORMAL); REACTIVE LYMPHOCYTES 1 % (0-0); TOTAL CELLS COUNTED 100
[2017-12-16 13:15] LABS: ABG ALLEN TEST YES; ARTERIAL BLOOD GAS HCO3 24.2 mmol/L (21-28); ARTERIAL BLOOD GAS O2 SAT 99.3 % (95-98); ARTERIAL BLOOD GAS PCO2 41 mm/Hg (35-45); ARTERIAL BLOOD GAS PH 7.38 (7.35-7.45); ARTERIAL BLOOD GAS PO2 79 mm/Hg (80-100); ARTERIAL BLOOD GAS TCO2 25.6 mmol/L (22-28)
[2017-12-16 13:21] LABS: SQUAMOUS EPITHIAL 2 /hpf (0-5); URINE BACTERIA RARE (<OCC); URINE BILIRUBIN NEGATIVE (NEGATIVE); URINE BLOOD NEGATIVE (NEGATIVE); URINE CLARITY CLOUDY (Clear); URINE COLOR YELLOW (YELLOW); URINE GLUCOSE (UA) NEG (Normal); URINE LEUKOCYTE ESTERASE TRACE Leu/uL (Negative); URINE PROTEIN 100 mg/dL (NEGATIVE)
--- NOTE | 2017-12-16 15:29 | CT ---
PROCEDURE: CT HEAD WITHOUT CONTRAST. HISTORY: Syncope COMPARISON: None available. TECHNIQUE: Axial computed tomography images were obtained through the head/brain without intravenous contrast. Radiation dose: Total exam DLP = 854.45 mGy-cm. This CT exam was performed using one or more of the following dose reduction techniques: Automated exposure control, adjustment of the mA and/or kV according to patient size, and/or use of iterative reconstruction technique.. FINDINGS: HEMORRHAGE: No acute parenchymal, subarachnoid or extra-axial hemorrhage. BRAIN: Moderate chronic periventricular white matter ischemic changes seen extending peripherally into the deep and subcortical white matter both cerebral hemispheres. . Note that the possibility of a small hyperacute infarct cannot be excluded on this exam Moderate to significant central volume loss evidenced by disproportionate enlargement of the ventricles compared sulci. . Vascular calcifications both carotid siphons VENTRICLES: No obstructive hydrocephalus. CALVARIUM: No acute calvarial fractures. PARANASAL SINUSES: Minor mucosal thickening inferior margin left chamber sphenoid sinus. MASTOID AIR CELLS: Unremarkable as visualized. No inflammatory changes. OTHER FINDINGS: None. IMPRESSION: No acute intracranial hemorrhage. Moderate to fairly significant chronic white matter ischemic changes. Moderate to significant central volume loss.
--- NOTE | 2017-12-16 15:39 | RAD ---
HISTORY: sepsis COMPARISON: Portable chest 06/13/2017. FINDINGS: LUNGS: No acute infiltrate bilaterally. Linear atelectasis in the inferior left lung zone. No other right hemidiaphragm aerated. PLEURA: No significant pleural effusion identified, no pneumothorax apparent. CARDIOVASCULAR: Normal. OSSEOUS STRUCTURES: No significant abnormalities. VISUALIZED UPPER ABDOMEN: Normal. OTHER FINDINGS: None. IMPRESSION: Elevated right hemidiaphragm again evident. Linear atelectasis is noted at the left base with no definite consolidation bilaterally.
[2017-12-17 07:54] LABS: BASO # 0.1 K/uL (0.0-0.2); BASO % 0.4 % (0.0-2.0); EOS # 0.1 K/uL (0.0-0.7); EOS % 0.3 % (0.0-4.0); HEMOGLOBIN 10.8 g/dL (12.0-16.0); LYMPH # 2.5 K/uL (1.0-4.3); LYMPH % 13.1 % (20.0-40.0); MEAN CELL VOLUME 90.5 fl (81.0-99.0); MEAN CORPUSCULAR HEMOGLOBIN 29.4 pg (27.0-31.0); MEAN CORPUSCULAR HGB CONC 32.5 g/dL (33.0-37.0); MEAN PLATELET VOLUME 9.4 fl (7.2-11.7); MONO # 0.9 K/uL (0.0-0.8); MONO % 4.9 % (0.0-10.0); NEUT # 15.3 K/uL (1.8-7.0); NEUT % 81.3 % (50.0-75.0); RBC 3.67 Mil/uL (3.80-5.20); RED CELL DISTRIBUTION WIDTH 14.4 % (11.5-14.5); WHITE BLOOD COUNT 18.9 K/uL (4.8-10.8)
[2017-12-17 08:55] LABS: ALB/GLOB RATIO 0.9 (1.0-2.1); ALBUMIN 3.1 g/dL (3.5-5.0); ALT/SGPT 30 U/L (9-52); AST/SGOT 14 U/L (14-36); BLOOD UREA NITROGEN 27 mg/dl (7-17); CALCIUM 8.3 mg/dL (8.4-10.2); GFR AFRICAN-AMERICAN > 60; GFR NON-AFRICAN AMERICAN > 60
[2017-12-17] MEDS ORDERED: Patient's Own Med (Cyclosporine [Restasis] 1 DROP) LEFTEYE SCH (09:15)
[2017-12-17] MEDS ORDERED: Patient's Own Med (Brimonidine Tartrate/Timolol [Combigan 0.2%-0.5% Eye Drops] 1 DROP) LEFTEYE SCH (09:15)
--- NOTE | 2017-12-17 09:43 | CP.PCM.HP ---
History of Present Illness - History of Present Illness History of Present Illness: Patient seen and examined at bedside with Dr. Mcginnis 82 yr old F brought to ED via ambulance with complaint of 2 episodes of non- bloody/non-bilious vomiting, multiple episodes of watery diarrhea and a brief syncopal episode. Deny seizure activity. PMHx includes IDDM type 2, HTN, hypothyroidism, CVA with b/l blindess, left side weakness, , diverticulitis, advanced dementia. Daughter and son at home are her sole caretakers. Deny fever , SOB on exertion, abdominal pain, headache. 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 PMD: Madi Vera PMHx: IDDM type 2, HTN, hypothyroidism, CVA with b/l blindess, left side weakness, , diverticulitis, advanced dementia SurgHx: partial thyroidectomy, tonsillectomy FMHx: noncontributory SocHx: denies tobacco/Etoh or drugs Medications: see medications reconciliation Allergies: aspirin, sulfanamide antibiotics, iodine contrast, metformin ED course: BP 101/50 mmHg, HR 69 bpm, Resp 19, O2 sat 97% on room air, Temp 97.9F -CBC: WBC 27.6, neutro % 93.3, ESR 45, rest within normal limits -CMP: Na 141, K+ 3.3, Cl 103, HCO3 24. BUN 26/Cr 1.1, rest wnl -VBG: pH 7.28, pCO2 52, HCO3 21, pO2 52, lactate 2.9 -ABG: pH 7.38, pCO2 41, HCO3 24.2, pO2 79, lactate 1.1 -urinalysis: trace leukocyte esterase -C. diff Ag positive -ED treatment: Cipro 400mg IV once, Metronidazole 500mg IV once, NS 1L IV ouls, Zofran 4mg IV once Present on Admission - Present on Admission Any Indicators Present on Admission: No History of DVT/PE: No History of Uncontrolled Diabetes: No Urinary Catheter: No Decubitus Ulcer Present: No History Surgical Site Infection Following: None Review of Systems - Review of Systems Systems not reviewed;Unavailable: Dementia (patient does answer few questions, denies pain, denies SOB) Past Patient History - Infectious Disease Hx of Infectious Diseases: None - Tetanus Immunizations Tetanus Immunization: Unknown - Past Medical History & Family History Past Medical History?: Yes - Past Social History Smoking Status: Never Smoked - CARDIAC Hx Congestive Heart Failure: Yes Hx Hypercholesterolemia: Yes Hx Hypertension: Yes - PULMONARY Hx Pneumonia: Yes - NEUROLOGICAL Hx Alzheimer's Disease: Yes Hx Dementia: Yes Hx Migraine: Yes Hx Transient Ischemic Attacks (TIA): Yes (2013) - HEENT Hx HEENT Problems: Yes Hx Cataracts: Yes (s/p surgery) Hx Glaucoma: Yes Other/Comment: Hx legally blind. Hx Diabetic Retinopathy - RENAL Hx Chronic Kidney Disease: No - ENDOCRINE/METABOLIC Hx Hypothyroidism: Yes - HEMATOLOGICAL/ONCOLOGICAL Hx Anemia: Yes Hx Human Immunodeficiency Virus (HIV): No - INTEGUMENTARY Hx Dermatological Problems: No - MUSCULOSKELETAL/RHEUMATOLOGICAL Hx Arthritis: No Hx Falls: No Hx Fractures: Yes (rt wrist/elbow) - GASTROINTESTINAL Hx Diverticulitis: Yes (Diverticulosis) Hx Gastritis: Yes - GENITOURINARY/GYNECOLOGICAL Hx Genitourinary Disorders: Yes Hx Urinary Tract Infection: Yes Other/Comment: left breast cyst - PSYCHIATRIC Hx Anxiety: Yes Hx Depression: Yes Hx Substance Use: No - SURGICAL HISTORY Hx Coronary Artery Bypass Graft: No Hx Tonsillectomy: Yes (partial thyroidectomy) - ANESTHESIA Hx Anesthesia: Yes Hx Anesthesia Reactions: Yes (HALLUCINATION, CONFUSION) Hx Malignant Hyperthermia: No Meds Allergies/Adverse Reactions: Allergies Allergy/AdvReac Type Severity Reaction Status Date / Time aspirin Allergy NAUSEA Verified 05/13/17 09:32 Sulfa (Sulfonamide Allergy RASH Verified 05/13/17 09:32 Antibiotics) Iodinated Contrast- Oral and AdvReac VOMITING Verified 05/13/17 09:32 IV Dye metformin AdvReac DIARRHEA Verified 05/13/17 09:32 Physical Exam - Constitutional Appears: No Acute Distress - Head Exam Head Exam: ATRAUMATIC, NORMOCEPHALIC - Eye Exam Eye Exam: absent: EOMI (b/l blindness), PERRL (cornea clouded) - ENT Exam ENT Exam: Mucous Membranes Moist - Neck Exam Neck exam: Positive for: Full Rom - Respiratory Exam Respiratory Exam: Clear to Auscultation Bilateral, NORMAL BREATHING PATTERN - Cardiovascular Exam Cardiovascular Exam: REGULAR RHYTHM, +S1, +S2 - GI/Abdominal Exam GI & Abdominal Exam: Normal Bowel Sounds, Soft - Extremities Exam Extremities exam: Positive for: full ROM, pedal pulses present. Negative for: pedal edema - Neurological Exam Neurological exam: Alert (follows commands, moves all extremities when prompted) - Psychiatric Exam Psychiatric exam: Flat Affect (advanced dementia) - Skin Skin Exam: Normal Color, Warm Results - Vital Signs Recent Vital Signs: Last Vital Signs Temp 98 F 12/17/17 08:00 Pulse 68 12/17/17 08:00 Resp 18 12/17/17 08:00 BP 168/81 H 12/17/17 08:00 Pulse Ox 97 12/17/17 08:00 - Labs Result Diagrams: 12/17/17 07:49 12/17/17 07:49 Labs: Laboratory Results - last 24 hr 12/16/17 12/16/17 12/16/17 09:09 09:30 09:40 WBC 27.6 H D RBC 4.07 Hgb 12.3 Hct 36.9 MCV 90.7 MCH 30.1 MCHC 33.2 RDW 14.0 Plt Count 376 D MPV 9.7 Neut % (Auto) 93.3 H Lymph % (Auto) 2.0 L Sampson % (Auto) 3.9 Eos % (Auto) 0.4 Baso % (Auto) 0.4 Neut # (Auto) 25.8 H Lymph # (Auto) 0.6 L Sampson # (Auto) 1.1 H Eos # (Auto) 0.1 Baso # (Auto) 0.1 Neutrophils % (Manual) 83 H Band Neutrophils % 5 H Lymphocytes % (Manual) 6 L Reactive Lymphs % 1 H Monocytes % (Manual) 5 Platelet Estimate Normal RBC Morphology Normal pCO2 pO2 26 L HCO3 ABG pH ABG Total CO2 ABG O2 Saturation ABG Base Excess Spencer Test ABG Potassium VBG pH 7.28 L VBG pCO2 52 VBG HCO3 21.0 VBG Total CO2 26.0 VBG O2 Sat (Calc) 52.1 VBG Base Excess -3.0 L VBG Potassium 3.1 L A-a O2 Difference Sodium 136.0 Chloride 103.0 Glucose 160 H Lactate 2.9 H FiO2 21.0 Potassium Carbon Dioxide Anion Gap BUN Creatinine Est GFR ( Amer) Est GFR (Non-Af Amer) POC Glucose (mg/dL) 130 H Random Glucose Calcium Total Bilirubin AST ALT Alkaline Phosphatase Total Protein Albumin Globulin Albumin/Globulin Ratio Arterial Blood Potassium Venous Blood Potassium 3.1 L Urine Color Urine Clarity Urine pH Ur Specific Maple Urine Protein Urine Glucose (UA) Urine Ketones Urine Blood Urine Nitrate Urine Bilirubin Urine Urobilinogen Ur Leukocyte Esterase Urine RBC (Auto) Urine Microscopic WBC Ur Squamous Epith Cells Ur Transition Epith Cell Urine Bacteria Hyaline Casts C. difficile Ag & Toxin 12/16/17 12/16/17 12/16/17 09:40 11:09 12:40 WBC RBC Hgb Hct MCV MCH MCHC RDW Plt Count MPV Neut % (Auto) Lymph % (Auto) Sampson % (Auto) Eos % (Auto) Baso % (Auto) Neut # (Auto) Lymph # (Auto) Sampson # (Auto) Eos # (Auto) Baso # (Auto) Neutrophils % (Manual) Band Neutrophils % Lymphocytes % (Manual) Reactive Lymphs % Monocytes % (Manual) Platelet Estimate RBC Morphology pCO2 pO2 HCO3 ABG pH ABG Total CO2 ABG O2 Saturation ABG Base Excess Spencer Test ABG Potassium VBG pH VBG pCO2 VBG HCO3 VBG Total CO2 VBG O2 Sat (Calc) VBG Base Excess VBG Potassium A-a O2 Difference Sodium 141 Chloride 103 Glucose Lactate FiO2 Potassium 3.3 L Carbon Dioxide 24 Anion Gap 17 BUN 26 H Creatinine 1.1 Est GFR ( Amer) 57 Est GFR (Non-Af Amer) 47 POC Glucose (mg/dL) Random Glucose 150 H Calcium 9.1 Total Bilirubin 0.6 AST 23 ALT 21 Alkaline Phosphatase 79 Total Protein 7.6 Albumin 3.8 Globulin 3.7 Albumin/Globulin Ratio 1.0 Arterial Blood Potassium Venous Blood Potassium Urine Color Yellow Urine Clarity Cloudy Urine pH 5.0 Ur Specific Maple 1.018 Urine Protein 100 Urine Glucose (UA) Neg Urine Ketones Negative Urine Blood Negative Urine Nitrate Negative Urine Bilirubin Negative Urine Urobilinogen 2.0 H Ur Leukocyte Esterase Trace Urine RBC (Auto) 4 H Urine Microscopic WBC 15 H Ur Squamous Epith Cells 2 Ur Transition Epith Cell 1 Urine Bacteria Rare Hyaline Casts 6-10 H C. difficile Ag & Toxin Positive antigen 12/16/17 12/17/17 12/17/17 13:00 07:49 07:49 WBC 18.9 H RBC 3.67 L Hgb 10.8 L Hct 33.3 L MCV 90.5 MCH 29.4 MCHC 32.5 L RDW 14.4 Plt Count 302 MPV 9.4 Neut % (Auto) 81.3 H Lymph % (Auto) 13.1 L Sampson % (Auto) 4.9 Eos % (Auto) 0.3 Baso % (Auto) 0.4 Neut # (Auto) 15.3 H Lymph # (Auto) 2.5 Sampson # (Auto) 0.9 H Eos # (Auto) 0.1 Baso # (Auto) 0.1 Neutrophils % (Manual) Band Neutrophils % Lymphocytes % (Manual) Reactive Lymphs % Monocytes % (Manual) Platelet Estimate RBC Morphology pCO2 41 pO2 79 L HCO3 24.2 ABG pH 7.38 ABG Total CO2 25.6 ABG O2 Saturation 99.3 H ABG Base Excess -0.8 Spencer Test Yes ABG Potassium 3.0 L VBG pH VBG pCO2 VBG HCO3 VBG Total CO2 VBG O2 Sat (Calc) VBG Base Excess VBG Potassium A-a O2 Difference 69.0 Sodium 136.0 140 Chloride 107.0 105 Glucose 193 H Lactate 1.1 FiO2 28.0 Potassium 3.3 L Carbon Dioxide 25 Anion Gap 13 BUN 27 H Creatinine 0.8 Est GFR ( Amer) > 60 Est GFR (Non-Af Amer) > 60 POC Glucose (mg/dL) Random Glucose 165 H Calcium 8.3 L Total Bilirubin 0.6 AST 14 D ALT 30 Alkaline Phosphatase 60 Total Protein 6.3 Albumin 3.1 L Globulin 3.3 Albumin/Globulin Ratio 0.9 L Arterial Blood Potassium 3.0 L Venous Blood Potassium Urine Color Urine Clarity Urine pH Ur Specific Maple Urine Protein Urine Glucose (UA) Urine Ketones Urine Blood Urine Nitrate Urine Bilirubin Urine Urobilinogen Ur Leukocyte Esterase Urine RBC (Auto) Urine Microscopic WBC Ur Squamous Epith Cells Ur Transition Epith Cell Urine Bacteria Hyaline Casts C. difficile Ag & Toxin Assessment & Plan - Assessment and Plan (Free Text) Assessment: 82 yr old F admitted for C. diff infection with vomiting, diarrhea and syncopal episode. Patient does not meet criteria for sepsis. Plan: -admit to telemetry -contact isolation/precautions -f/u C-diff, blood culture, CBC, ESR -continue with home medications -Ciprofloxacin, Metronidazole, Pantroprazole -hypoglycemia protocol -moderate carbohydrate diet -Insulin lispro coverage scale - Date & Time Date: 12/17/17 Time: 09:38
[2017-12-17] MEDS: metroNIDAZOLE 500mg/100ml NS 250 MG in Premixed IV 1 EA IVPB SCH ×2 (10:08→16:50)
[2017-12-17] MEDS: Brimonidine 0.2% 50 DROP/5 ML BOTTLE OU SCH ×3 (10:08→21:54)
[2017-12-17] MEDS: Ciprofloxacin 200mg/100ml D5W 100 ML IVPB SCH ×2 (10:09→21:54)
[2017-12-17] MEDS: Enoxaparin 30 mg Syringe SC SCH (10:10)
[2017-12-17] MEDS: Potassium Chloride 20 mEq/15 ml LIQ UD PO SCH (10:11)
[2017-12-17] MEDS: Cholecalciferol 1,000 INTLU TAB PO SCH (10:21)
[2017-12-17] MEDS: Levothyroxine 75 MCG TAB PO SCH (10:22)
[2017-12-17] MEDS: Dextrose 5%/Lactated Ringer's 1,000 ML IV SCH ×2 (10:33→22:01)
[2017-12-17] MEDS ORDERED: Glucagon Recombinant 1 mg Inj IM PRN (11:33)
[2017-12-17] MEDS ORDERED: Dextrose 50% SYRINGE Inj (50 ml) IV PRN (11:33)
[2017-12-17] MEDS: PrednisoLONE 1% OPTH SUSP OD SCH ×3 (14:00→21:56)
[2017-12-17] MEDS: Insulin Lispro (humaLOG) 100 Units/ml Inj SC SCH ×2 (16:51→21:59)
[2017-12-17] MEDS: Artificial Tears Opht Soln OU SCH (21:58)
[2017-12-18] MEDS: metroNIDAZOLE 500mg/100ml NS 250 MG in Premixed IV 1 EA IVPB SCH ×3 (00:53→18:09)
[2017-12-18 05:46] LABS: HEMOGLOBIN 10.8 g/dL (12.0-16.0); MEAN CELL VOLUME 90.1 fl (81.0-99.0); MEAN CORPUSCULAR HEMOGLOBIN 29.5 pg (27.0-31.0); MEAN CORPUSCULAR HGB CONC 32.8 g/dL (33.0-37.0); RBC 3.64 Mil/uL (3.80-5.20); RED CELL DISTRIBUTION WIDTH 14.4 % (11.5-14.5); WHITE BLOOD COUNT 13.8 K/uL (4.8-10.8)
[2017-12-18] MEDS: Levothyroxine 75 MCG TAB PO SCH (06:01)
[2017-12-18 06:33] LABS: BLOOD UREA NITROGEN 15 mg/dl (7-17); CALCIUM 8.5 mg/dL (8.4-10.2); GFR AFRICAN-AMERICAN > 60; GFR NON-AFRICAN AMERICAN > 60
[2017-12-18] MEDS ORDERED: Potassium Chloride 20 mEq/15 ml LIQ UD PO ONE (09:35)
[2017-12-18] MEDS: Ciprofloxacin 200mg/100ml D5W 100 ML IVPB SCH ×2 (09:43→21:50)
[2017-12-18] MEDS: Brimonidine 0.2% 50 DROP/5 ML BOTTLE OU SCH ×2 (09:44→21:54)
[2017-12-18] MEDS: Insulin Lispro (humaLOG) 100 Units/ml Inj SC SCH ×4 (09:45→22:16)
[2017-12-18] MEDS: Mineral Oil/White Petrolatum Ophth Oint OU SCH ×2 (09:46→21:10)
[2017-12-18] MEDS: Enoxaparin 30 mg Syringe SC SCH (09:47)
[2017-12-18] MEDS: Potassium Chloride 20 mEq/15 ml LIQ UD PO SCH (09:50)
[2017-12-18] MEDS: PrednisoLONE 1% OPTH SUSP OD SCH ×4 (09:50→21:51)
[2017-12-18] MEDS: Cholecalciferol 1,000 INTLU TAB PO SCH (09:51)
[2017-12-18] MEDS ORDERED: Potassium Chloride 20 mEq ER Tab PO ONE (11:29)
--- NOTE | 2017-12-18 12:48 | PQF ---
PROVIDER RESPONSE TEXT: Hypokalemia secondary to Gastroenteritis with vomiting diarrhea REVIEWER QUERY TEXT: Clarification of Clinical Diagnostic Findings Please clarify if there is an associated diagnosis or not to go along with the K level. Please clarify clinical relevance for the clinical / diagnostic findings or whether those are insigni ficant or unable to be further specified. The patient's Clinical Indicators include: Patient presents with vomiting and diarrhea. K level 3.3. Treated with KCL IVAB and KCL po. Query created by: Melanie Thomas on 12/17/2017 1:38 PM PROVIDER RESPONSE TEXT: Patient with dehydration, increased BUN secondary to gastroenteritis, vomiting diarrhea. REVIEWER QUERY TEXT: Clarification of Clinical Diagnostic Findings Please clarify if there is an associated diagnosis or not to go along with the BUN/Creatinine/GFR fin dings. Please clarify clinical relevance for the clinical / diagnostic findings or whether those are insigni ficant or unable to be further specified. The patient's Clinical Indicators include: Patient presents with vomiting, watery diarrhea and a brief syncopal episode. History of advanced dem entia. BUN 26-> 28, Creatinine 1.1-> 0.8, GFR 47-> >60. Treated with IVF. Query created by: Melanie Thomas on 12/17/2017 1:35 PM Electronically signed by: Morris Mcginnis MD 12/18/2017 12:45 PM
--- NOTE | 2017-12-18 17:30 | CP.PCM.PN ---
Subjective - Date & Time of Evaluation Date of Evaluation: 12/18/17 Time of Evaluation: 10:35 - Subjective Subjective: Patient seen and examined at bedside with Dr. Mcginnis. Patient awake and alert, moving around in the bed. Denies pain. Comfortable on room air. In no acute distress. No events reported overnight. Objective - Vital Signs/Intake and Output Vital Signs (last 24 hours): Temp Pulse Resp BP Pulse Ox 97.5 F L 60 20 145/71 96 12/18/17 16:32 12/18/17 16:32 12/18/17 16:32 12/18/17 16:32 12/18/17 16:32 - Medications Medications: Current Medications Acetaminophen (Tylenol 325 Mg Supp) 325 mg [place] Q4 PRN PRN Reason: Temperature Acetaminophen (Tylenol 325mg Tab) 650 mg PO Q4 PRN PRN Reason: Pain, Mild (1-3) Artificial Tears (Artificial Tears) 1 drop OU HS [facility] Last Admin: 12/17/17 21:58 Dose: 1 drop Artificial Tears (Lacri-Lube) 1 applic OU Q12 [facility] Last Admin: 12/18/17 09:46 Dose: 1 applic Aspirin (Ecotrin) 81 mg PO Q48H [facility] Last Admin: 12/17/17 10:15 Dose: 81 mg Atorvastatin Calcium (Lipitor) 40 mg PO HS [facility] Last Admin: 12/17/17 21:54 Dose: 40 mg Brimonidine Tartrate (Alphagan 0.2% Opht) 1 drop OU Q12 [facility] Last Admin: 12/18/17 09:44 Dose: 1 drop Cholecalciferol (Vitamin D) 1,000 intlu PO DAILY [facility] Last Admin: 12/18/17 09:51 Dose: 1,000 intlu Clopidogrel Bisulfate (Plavix) 75 mg PO DAILY [facility] Last Admin: 12/18/17 09:49 Dose: 75 mg Dextrose (Dextrose 50% Inj) 0 ml IV STAT PRN; Protocol PRN Reason: Hypoglycemia Protocol Dextrose (Glutose 15) 0 gm PO ONCE PRN; Protocol PRN Reason: Hypoglycemia Protocol Donepezil HCl (Aricept) 10 mg PO HS [facility] Last Admin: 12/17/17 21:53 Dose: 10 mg Enoxaparin Sodium (Lovenox) 30 mg SC DAILY [facility] PRN Reason: Protocol Last Admin: 06/28/18 09:47 Dose: 30 mg Famotidine (Pepcid) 20 mg PO BID [facility] Last Admin: 12/18/17 09:48 Dose: 20 mg Glucagon (Glucagen Diagnostic Kit) 0 mg IM STAT PRN; Protocol PRN Reason: Hypoglycemia Protocol Ciprofloxacin (Cipro 200mg/100ml D5w) 100 mls @ 100 mls/hr IVPB Q12 [facility] PRN Reason: Protocol Last Admin: 12/18/17 09:43 Dose: 100 mls/hr Metronidazole 250 mg/ (Miscellaneous) 50 mls @ 50 mls/hr IVPB Q8 [facility] PRN Reason: Protocol Last Admin: 12/18/17 09:42 Dose: 50 mls/hr Insulin Human Lispro (Humalog) 0 units SC ACHS [facility] PRN Reason: Protocol Last Admin: 12/18/17 16:51 Dose: 3 units Levothyroxine Sodium (Synthroid) 75 mcg PO DAILY@0630 [facility] Last Admin: 12/18/17 06:01 Dose: 75 mcg Meclizine HCl (Antivert) 25 mg PO TID PRN PRN Reason: Dizziness Memantine (Namenda) 10 mg PO Q12 [facility] Last Admin: 12/18/17 09:48 Dose: 10 mg Metoprolol Tartrate (Lopressor) 12.5 mg PO DAILY PRN PRN Reason: SBP >139 Last Admin: 12/18/17 01:03 Dose: 12.5 mg Pantoprazole Sodium (Protonix Inj) 40 mg IVP DAILY [facility] Last Admin: 12/18/17 09:50 Dose: 40 mg Potassium Chloride (Potassium Chloride Oral Soln) 20 meq PO DAILY [facility] Last Admin: 12/18/17 09:50 Dose: 20 meq Prednisolone Acetate (Pred Forte 1% Opht Susp) 1 drop OD QID [facility] Last Admin: 12/18/17 13:00 Dose: 1 drop Ramipril (Altace) 5 mg PO ONCE ONE Stop: 12/19/17 16:27 Ramipril (Altace) 10 mg PO DAILY [facility] Risperidone (Risperdal Tab) 0.5 mg PO HS [facility] Last Admin: 12/17/17 21:54 Dose: 0.5 mg Sertraline HCl (Zoloft) 50 mg PO HS [facility] Last Admin: 12/17/17 21:53 Dose: 50 mg Timolol Maleate (Timoptic 0.5% Ophth Soln) 1 drop OU Q12 [facility] Last Admin: 12/18/17 09:51 Dose: 1 drop - Labs Labs: 12/18/17 05:33 12/18/17 05:33 - Constitutional Appears: No Acute Distress - Head Exam Head Exam: NORMAL INSPECTION - Eye Exam Additional comments: bilateral blindness, has right eye plastic guard - ENT Exam ENT Exam: Mucous Membranes Moist - Neck Exam Neck Exam: Full ROM. absent: Lymphadenopathy - Respiratory Exam Respiratory Exam: NORMAL BREATHING PATTERN - Cardiovascular Exam Cardiovascular Exam: REGULAR RHYTHM - GI/Abdominal Exam GI & Abdominal Exam: Normal Bowel Sounds - Extremities Exam Extremities Exam: absent: Calf Tenderness, Pedal Edema - Neurological Exam Neurological Exam: Alert, Awake - Psychiatric Exam Psychiatric exam: Flat Affect, Normal Mood Additional comments: advanced dementia Assessment and Plan - Assessment and Plan (Free Text) Assessment: 82 yr old F admitted for C. diff infection with vomiting, diarrhea and syncopal episode. Hypokalemia. Plan: -transfer to med/surg -supplement Potassiumc hloride PO 20 meQ QD -contact isolation/precautions -leukocytosis improving -continue with home medications -Ciprofloxacin, Metronidazole, Pantroprazole -hypoglycemia protocol -moderate carbohydrate diet -Insulin lispro coverage scale
[2017-12-18] MEDS: Artificial Tears Opht Soln OU SCH (21:51)
[2017-12-19] MEDS: metroNIDAZOLE 500mg/100ml NS 250 MG in Premixed IV 1 EA IVPB SCH ×3 (01:27→17:01)
[2017-12-19 06:06] LABS: HEMOGLOBIN 11.4 g/dL (12.0-16.0); MEAN CELL VOLUME 90.1 fl (81.0-99.0); MEAN CORPUSCULAR HEMOGLOBIN 29.5 pg (27.0-31.0); MEAN CORPUSCULAR HGB CONC 32.8 g/dL (33.0-37.0); RBC 3.85 Mil/uL (3.80-5.20); RED CELL DISTRIBUTION WIDTH 13.8 % (11.5-14.5); WHITE BLOOD COUNT 11.1 K/uL (4.8-10.8)
[2017-12-19] MEDS: Levothyroxine 75 MCG TAB PO SCH (06:17)
[2017-12-19 06:27] LABS: BLOOD UREA NITROGEN 9 mg/dl (7-17); CALCIUM 8.7 mg/dL (8.4-10.2); GFR AFRICAN-AMERICAN > 60; GFR NON-AFRICAN AMERICAN > 60
--- NOTE | 2017-12-19 07:47 | CP.PCM.PN ---
Subjective - Date & Time of Evaluation Date of Evaluation: 12/19/17 Time of Evaluation: 07:47 - Subjective Subjective: Patient seen and examined at bedside with Dr. Mcginnis. Afebrile, leukocytosis improving. Tolerating PO diet, refused to participate in PT this AM. Objective - Vital Signs/Intake and Output Vital Signs (last 24 hours): Temp Pulse Resp BP Pulse Ox 97.3 F L 70 18 158/84 H 98 12/18/17 23:58 12/18/17 23:58 12/18/17 23:58 12/18/17 23:58 12/18/17 23:58 - Medications Medications: Current Medications Acetaminophen (Tylenol 325 Mg Supp) 325 mg [place] Q4 PRN PRN Reason: Temperature Acetaminophen (Tylenol 325mg Tab) 650 mg PO Q4 PRN PRN Reason: Pain, Mild (1-3) Artificial Tears (Artificial Tears) 1 drop OU HS [facility] Last Admin: 12/18/17 21:51 Dose: 1 drop Artificial Tears (Lacri-Lube) 1 applic OU Q12 [facility] Last Admin: 12/18/17 21:10 Dose: 1 applic Aspirin (Ecotrin) 81 mg PO Q48H [facility] Last Admin: 12/17/17 10:15 Dose: 81 mg Atorvastatin Calcium (Lipitor) 40 mg PO HS [facility] Last Admin: 12/18/17 21:53 Dose: 40 mg Brimonidine Tartrate (Alphagan 0.2% Opht) 1 drop OU Q12 [facility] Last Admin: 12/18/17 21:54 Dose: 1 drop Cholecalciferol (Vitamin D) 1,000 intlu PO DAILY [facility] Last Admin: 12/18/17 09:51 Dose: 1,000 intlu Clopidogrel Bisulfate (Plavix) 75 mg PO DAILY [facility] Last Admin: 12/18/17 09:49 Dose: 75 mg Dextrose (Dextrose 50% Inj) 0 ml IV STAT PRN; Protocol PRN Reason: Hypoglycemia Protocol Dextrose (Glutose 15) 0 gm PO ONCE PRN; Protocol PRN Reason: Hypoglycemia Protocol Donepezil HCl (Aricept) 10 mg PO HS [facility] Last Admin: 12/18/17 21:53 Dose: 10 mg Enoxaparin Sodium (Lovenox) 30 mg SC DAILY [facility] PRN Reason: Protocol Last Admin: 12/18/17 09:47 Dose: 30 mg Famotidine (Pepcid) 20 mg PO BID [facility] Last Admin: 12/18/17 18:12 Dose: 20 mg Glucagon (Glucagen Diagnostic Kit) 0 mg IM STAT PRN; Protocol PRN Reason: Hypoglycemia Protocol Ciprofloxacin (Cipro 200mg/100ml D5w) 100 mls @ 100 mls/hr IVPB Q12 [facility] PRN Reason: Protocol Last Admin: 12/18/17 21:50 Dose: 100 mls/hr Metronidazole 250 mg/ (Miscellaneous) 50 mls @ 50 mls/hr IVPB Q8 [facility] PRN Reason: Protocol Last Admin: 12/19/17 01:27 Dose: 50 mls/hr Insulin Human Lispro (Humalog) 0 units SC ACHS [facility] PRN Reason: Protocol Last Admin: 12/18/17 22:16 Dose: Not Given Levothyroxine Sodium (Synthroid) 75 mcg PO DAILY@0630 [facility] Last Admin: 12/19/17 06:17 Dose: 75 mcg Meclizine HCl (Antivert) 25 mg PO TID PRN PRN Reason: Dizziness Memantine (Namenda) 10 mg PO Q12 [facility] Last Admin: 12/18/17 21:52 Dose: 10 mg Metoprolol Tartrate (Lopressor) 12.5 mg PO DAILY PRN PRN Reason: SBP >139 Last Admin: 12/18/17 01:03 Dose: 12.5 mg Pantoprazole Sodium (Protonix Inj) 40 mg IVP DAILY [facility] Last Admin: 12/18/17 09:50 Dose: 40 mg Potassium Chloride (Potassium Chloride Oral Soln) 20 meq PO DAILY [facility] Last Admin: 12/18/17 09:50 Dose: 20 meq Prednisolone Acetate (Pred Forte 1% Opht Susp) 1 drop OD QID [facility] Last Admin: 12/18/17 21:51 Dose: 1 drop Ramipril (Altace) 10 mg PO DAILY [facility] Risperidone (Risperdal Tab) 0.5 mg PO HS [facility] Last Admin: 12/18/17 21:53 Dose: 0.5 mg Sertraline HCl (Zoloft) 50 mg PO HS [facility] Last Admin: 12/18/17 21:51 Dose: 50 mg Timolol Maleate (Timoptic 0.5% Ophth Soln) 1 drop OU Q12 [facility] Last Admin: 12/18/17 21:52 Dose: 1 drop - Labs Labs: 12/19/17 05:55 12/19/17 05:55 - Constitutional Appears: No Acute Distress - ENT Exam ENT Exam: Mucous Membranes Moist - Neck Exam Neck Exam: Full ROM. absent: Lymphadenopathy - Respiratory Exam Respiratory Exam: NORMAL BREATHING PATTERN - Cardiovascular Exam Cardiovascular Exam: REGULAR RHYTHM - GI/Abdominal Exam GI & Abdominal Exam: Normal Bowel Sounds - Extremities Exam Extremities Exam: absent: Calf Tenderness, Pedal Edema - Neurological Exam Neurological Exam: Alert, Awake - Psychiatric Exam Psychiatric exam: Flat Affect, Normal Mood - Skin Skin Exam: Dry, Warm Assessment and Plan - Assessment and Plan (Free Text) Assessment: 82 yr old F admitted for C. diff infection with vomiting, diarrhea and syncopal episode. Hypokalemia resolved. Leukocytosis improving. Declined PT today. Plan: -continue supplement Potassium chloride PO 20 meQ QD -contact isolation/precautions -leukocytosis continues improving -continue with home medications -Ciprofloxacin, Metronidazole, Pantroprazole -hypoglycemia protocol -moderate carbohydrate diet -Insulin lispro coverage scale
[2017-12-19] MEDS: Brimonidine 0.2% 50 DROP/5 ML BOTTLE OU SCH ×2 (08:14→21:03)
[2017-12-19] MEDS: Insulin Lispro (humaLOG) 100 Units/ml Inj SC SCH ×4 (08:16→22:12)
[2017-12-19] MEDS: Mineral Oil/White Petrolatum Ophth Oint OU SCH ×2 (08:18→21:46)
[2017-12-19] MEDS: Enoxaparin 30 mg Syringe SC SCH (08:19)
[2017-12-19] MEDS: Cholecalciferol 1,000 INTLU TAB PO SCH (08:20)
[2017-12-19] MEDS: PrednisoLONE 1% OPTH SUSP OD SCH ×4 (08:20→21:31)
[2017-12-19] MEDS: Ciprofloxacin 200mg/100ml D5W 100 ML IVPB SCH ×2 (08:25→21:04)
[2017-12-19] MEDS: Potassium Chloride 20 mEq/15 ml LIQ UD PO SCH (11:25)
[2017-12-19] MEDS: Artificial Tears Opht Soln OU SCH (21:39)
[2017-12-20] MEDS: metroNIDAZOLE 500mg/100ml NS 250 MG in Premixed IV 1 EA IVPB SCH ×3 (00:22→16:12)
[2017-12-20] MEDS: Levothyroxine 75 MCG TAB PO SCH (06:22)
[2017-12-20] MEDS: Enoxaparin 30 mg Syringe SC SCH (09:07)
[2017-12-20] MEDS: Potassium Chloride 20 mEq/15 ml LIQ UD PO SCH (09:15)
[2017-12-20] MEDS: Cholecalciferol 1,000 INTLU TAB PO SCH (09:16)
[2017-12-20] MEDS: Mineral Oil/White Petrolatum Ophth Oint OU SCH (09:17)
[2017-12-20] MEDS: Brimonidine 0.2% 50 DROP/5 ML BOTTLE OU SCH (09:17)
[2017-12-20] MEDS: Insulin Lispro (humaLOG) 100 Units/ml Inj SC SCH ×4 (09:18→23:07)
[2017-12-20] MEDS: PrednisoLONE 1% OPTH SUSP OD SCH (09:19)
[2017-12-20] MEDS: Ciprofloxacin 200mg/100ml D5W 100 ML IVPB SCH (09:30)
[2017-12-20] MEDS: PrednisoLONE 1% OPTH SUSP OS SCH ×2 (13:30→16:12)
--- NOTE | 2017-12-20 15:01 | CON ---
DATE: 12/20/2017 CHIEF COMPLAINT: Syncope, questionable seizure-like activity. 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 No seizure-like activity. Currently, the patient is being treated for underlying E. coli in her urine and possible C. diff. She is on antibiotics. ID is on board. She had low systolic and diastolic blood pressures when she came in. She is on aspirin, Plavix and statin for stroke prevention. PAST MEDICAL HISTORY: As above. SOCIAL HISTORY: No illicit drug use, smoking or EtOH abuse. ALLERGIES: ASPIRIN AND . REVIEW OF SYSTEMS: A 14-point review of systems negative except in the HPI. FAMILY HISTORY: Noncontributory. PHYSICAL EXAMINATION: VITAL SIGNS: Temperature afebrile, pulse rate 76, blood pressure 146/71, respiratory rate 20, oxygen saturation 95% via room air. GENERAL: The patient is sitting up in bed, in no acute distress. HEENT: Atraumatic, normocephalic. PERRLA. Extraocular muscles are intact. NECK: Supple. No JVD. No adenopathy noted. LUNGS: Clear to auscultation. No adventitious sounds. HEART: S1 and S2. Normal rate and rhythm. No murmur, rubs, or gallops. ABDOMEN: Soft, nontender, nondistended. Bowel sounds are present. EXTREMITIES: No clubbing. No cyanosis. Peripheral pulses are 2+ bilaterally. NEUROLOGIC: The patient is alert and oriented to person, place, month, and year. Poor attention span. Slow thought process. Cranial nerves II through XII are intact. Motor exam: Moves all extremities equally. She has some mild residual left-sided weakness and prior CVA. Sensory exam: Decreased to light touch and pinprick up to the calves bilaterally. Decreased vibration at the toes. DTRs are 2+ throughout, 1 at both knees and absent at the ankles. Coordination: [id number] intact. No dysmetria noted. Gait is deferred for now. LABORATORY DATA: Today's blood sugar is 330. ASSESSMENT AND PLAN: This is an 82-year-old woman with past medical history of dementia, history of cerebrovascular accident with mild residual left-sided weakness and partial left eye blindness, hypertension, dyslipidemia, hyperthyroidism, congestive heart failure, hypercholesterolemia, migraines, anxiety, who comes in with multiple episodes of nonbilious nonbloody vomiting and diarrhea, got lightheaded and passed out for a few minutes. She likely had a syncopal episode from a vasovagal event from transient cerebral hypoperfusion to the brain from volume depletion, superimposed underlying dementia. PLAN: At this time, I recommend, 1. Monitor electrolytes and correct accordingly. 2, Continue with her antibiotics for her possible gastroenteritis as well as E. coli urinary tract infection. 3. Keep systolic pressure between 130s to 140s and diastolic 70s to 80s. 4. Continue with aspirin, Plavix and statin for stroke prevention. PT and OT. Once again, thank you for this consult. No further neuro workup needed. Onofre Michel MD
[2017-12-20] MEDS: Vancomycin 500 mg (Oral/Rectal USE) PO SCH ×2 (16:05→21:07)
[2017-12-20] MEDS: Meropenem 500 MG in Sodium Chloride 0.9% 100 ML IVPB SCH (16:09)
[2017-12-20] MEDS: Artificial Tears Opht Soln OU SCH (21:06)
[2017-12-20] MEDS: Mineral Oil/White Petrolatum Ophth Oint OD SCH (21:07)
[2017-12-21] MEDS: PrednisoLONE 1% OPTH SUSP OS SCH ×5 (00:28→21:57)
[2017-12-21] MEDS: metroNIDAZOLE 500mg/100ml NS 250 MG in Premixed IV 1 EA IVPB SCH ×3 (00:29→17:14)
[2017-12-21] MEDS: Meropenem 500 MG in Sodium Chloride 0.9% 100 ML IVPB SCH ×3 (00:30→17:14)
[2017-12-21] MEDS: Vancomycin 500 mg (Oral/Rectal USE) PO SCH ×4 (04:03→21:42)
[2017-12-21] MEDS: Levothyroxine 75 MCG TAB PO SCH (06:04)
[2017-12-21] MEDS: Insulin Lispro (humaLOG) 100 Units/ml Inj SC SCH ×4 (06:48→22:10)
[2017-12-21] MEDS: Potassium Chloride 20 mEq/15 ml LIQ UD PO SCH (09:46)
[2017-12-21] MEDS: Enoxaparin 30 mg Syringe SC SCH (09:47)
[2017-12-21] MEDS: Cholecalciferol 1,000 INTLU TAB PO SCH (09:48)
[2017-12-21] MEDS: Mineral Oil/White Petrolatum Ophth Oint OD SCH ×2 (09:49→21:56)
--- NOTE | 2017-12-21 12:34 | CP.PCM.CON ---
History of Present Illness - History of Present Illness History of Present Illness: 82 yr old F brought to ED via ambulance with complaint of 2 episodes of non- bloody/non-bilious vomiting, multiple episodes of watery diarrhea and a brief syncopal episode. Deny fever, SOB on exertion, abdominal pain, headache. 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 ID consulted for antibiotic management PMHx: IDDM type 2, HTN, hypothyroidism, CVA with b/l blindess, left side weakness, , diverticulitis, advanced dementia SurgHx: partial thyroidectomy, tonsillectomy FMHx: noncontributory SocHx: denies tobacco/Etoh or drugs Medications: see medications reconciliation Allergies: aspirin, sulfanamide antibiotics, iodine contrast, metformin Review of Systems - Review of Systems All systems: reviewed and no additional remarkable complaints except - Constitutional Constitutional: As Per HPI - EENT Eyes: absent: As Per HPI, Blind Spots, Blurred Vision, Change in Vision, Decreased Night Vision, Diplopia, Discharge, Dry Eye, Exophthalmos, Floaters, Irritation, Itchy Eyes, Loss of Peripheral Vision, Pain, Photophobia, Requires Corrective Lenses, Sees Flashes, Spots in Vision, Tunnel Vision, Other Visual Disturbances, Loss of Vision, Other Ears: absent: As Per HPI, Decreased Hearing, Ear Discharge, Ear Pain, Tinnitus, Abnormal Hearing, Disequilibrium, Dizziness, Other Nose/Mouth/Throat: absent: As Per HPI, Epistaxis, Nasal Congestion, Nasal Discharge, Nasal Obstruction, Nasal Trauma, Nose Pain, Post Nasal Drip, Sinus Pain, Sinus Pressure, Bleeding Gums, Change in Voice, Dental Pain, Dry Mouth, Dysphagia, Halitosis, Hoarsness, Lip Swelling, Mouth Lesions, Mouth Pain, Odynophagia, Sore Throat, Throat Swelling, Tongue Swelling, Facial Pain, Neck Pain, Neck Mass, Other - Cardiovascular Cardiovascular: absent: As Per HPI, Acrocyanosis, Chest Pain, Chest Pain at Rest , Chest Pain with Activity, Claudication, Diaphoresis, Dyspnea, Dyspnea on Exertion, Edema, Irregular Heart Rhythm, Pain Radiating to Arm/Neck/Jaw, Leg Edema, Leg Ulcers, Lightheadedness, Orthopnea, Palpitations, Paroxysmal Nocturnal Dyspnea, Pedal Edema, Radiating Pain, Rapid Heart Rate, Slow Heart Rate, Syncope, Other - Respiratory Respiratory: absent: As Per HPI, Cough, Dyspnea, Hemoptysis, Dyspnea on Exertion , Wheezing, Snoring, Stridor, Pain on Inspiration, Chest Congestion, Excessive Mucous Production, Change in Mucous Color, Pain with Coughing, Other - Gastrointestinal Gastrointestinal: As Per HPI - Genitourinary Genitourinary: absent: As Per HPI, Change in Urinary Stream, Difficulty Urinating, Dysuria, Flank Pain, Hematuria, Pyuria, Nocturia, Urinary Incontinence, Urinary Frequency, Urinary Hesitance, Urinary Urgency, Voiding Freq/Small Amts, Freq UTI, Hx Renal/Bladder Calculi, Hx /Renal Surgery, Bladder Distension, Other - Reproductive: Female Reproductive:Female: absent: As Per HPI, Amenorrhea, Amenorrhea/ Control, Currently Menstual, Cycle <21 Days, Cycle >35 Days, Cycle Variable, Menses 1-7 Days, Menses >/= 8 Days, Menses Variable, Cycle > 4 Weeks Between, No Menses for 6 Months, Heavy Menses, Light Menses, Normal Menses, Spotting Between Cycles , S/P Hysterectomy, Menopausal, Post Menopausal, Premenarche, Abnormal Vaginal Bleeding, Dysmenorrhea, Dyspareunia, Genital Lesions, Genital Pruritis, Pelvic Pain, Prolapse Symptoms, Sexual Dysfunction, Vaginal Discharge, Vaginal Dryness , Vaginal Odor, Vaginal Pruritis, Other - Menstruation Menstruation: absent: As Per HPI, Amenorrhea, Amenorrhea/ Control, Currently Menstual, Cycle <21 Days, Cycle >35 Days, Cycle Variable, Menses 1-7 Days, Menses >/= 8 Days, Menses Variable, Cycle > 4 Weeks Between, No Menses for 6 Months, Heavy Menses, Light Menses, Normal Menses, Spotting Between Cycles , S/P Hysterectomy, Menopausal, Post Menopausal, Premenarche, Abnormal Vaginal Bleeding, Dysmenorrhea, Other - Musculoskeletal Musculoskeletal: absent: As Per HPI, Abnormal Gait, Arthralgias, Atrophy, Back Pain, Deformity, Joint Swelling, Limited Range of Motion, Loss of Height, Muscle Cramps, Muscle Weakness, Myalgias, Neck Pain, Numbness, Radiating Pain into Limb, Stiffness, Tingling, Other - Integumentary Integumentary: absent: As Per HPI, Acne, Alopecia, Bleeding Lesions, Change in Hair, Change in Nails, Change in Pigmentation, Changing Lesions, Dry Skin, Erythema, Furuncle, Hirsutism, Lesions, New Lesions, Non-Healing Lesions, Photosensitivity, Pruritus, Rash, Skin Pain, Skin Ulcer, Sores, Striae, Swelling , Unusual Bruising, Wounds, Jaundice, Other - Neurological Neurological: As Per HPI - Psychiatric Psychiatric: absent: As Per HPI, Abnormal Sleep Pattern, Anhedonia, Anxiety, Auditory Hallucinations, Behavioral Changes, Change in Appetite, Change in Libido, Confusion, Depression, Difficulty Concentrating, Hallucinations, Homicidal Ideation, Hopelessness, Irritability, Memory Loss, Mood Swings, Panic Attacks, Paranoia, Suicidal Ideation, Visual Hallucinations, Tactile Hallucinations, Other - Endocrine Endocrine: absent: As Per HPI, Change in Body Appearance, Change in Libido, Cold Intolorance, Deepening of Voice, Excessive Sweating, Fatigue, Flushing, Heat Intolorance, Increase in Ring/Shoe/Hat Size, Palpitations, Polydipsia, Polyphagia, Polyuria, Other - Hematologic/Lymphatic Hematologic: absent: As Per HPI, Easy Bleeding, Easy Bruising, Lymphadenopathy, Other Past Patient History - Infectious Disease Hx of Infectious Diseases: None - Tetanus Immunizations Tetanus Immunization: Unknown - Past Medical History & Family History Past Medical History?: Yes - Past Social History Alcohol: None Drugs: Denies - CARDIAC Hx Congestive Heart Failure: Yes Hx Hypercholesterolemia: Yes Hx Hypertension: Yes - PULMONARY Hx Pneumonia: Yes - NEUROLOGICAL Hx Alzheimer's Disease: Yes Hx Dementia: Yes Hx Migraine: Yes Hx Transient Ischemic Attacks (TIA): Yes (2013) - HEENT Hx HEENT Problems: Yes Hx Cataracts: Yes (s/p surgery) Hx Glaucoma: Yes Other/Comment: Hx legally blind. Hx Diabetic Retinopathy - RENAL Hx Chronic Kidney Disease: No - ENDOCRINE/METABOLIC Hx Hypothyroidism: Yes - HEMATOLOGICAL/ONCOLOGICAL Hx Anemia: Yes Hx Human Immunodeficiency Virus (HIV): No - INTEGUMENTARY Hx Dermatological Problems: No - MUSCULOSKELETAL/RHEUMATOLOGICAL Hx Arthritis: No Hx Fractures: Yes (rt wrist/elbow) - GASTROINTESTINAL Hx Diverticulitis: Yes (Diverticulosis) Hx Gastritis: Yes - GENITOURINARY/GYNECOLOGICAL Hx Genitourinary Disorders: Yes Hx Urinary Tract Infection: Yes Other/Comment: left breast cyst - PSYCHIATRIC Hx Anxiety: Yes Hx Depression: Yes - SURGICAL HISTORY Hx Coronary Artery Bypass Graft: No Hx Tonsillectomy: Yes (partial thyroidectomy) - ANESTHESIA Hx Anesthesia: Yes Hx Anesthesia Reactions: Yes (HALLUCINATION, CONFUSION) Hx Malignant Hyperthermia: No Meds Allergies/Adverse Reactions: Allergies Allergy/AdvReac Type Severity Reaction Status Date / Time aspirin Allergy NAUSEA Verified 05/13/17 09:32 Sulfa (Sulfonamide Allergy RASH Verified 05/13/17 09:32 Antibiotics) Iodinated Contrast- Oral and AdvReac VOMITING Verified 05/13/17 09:32 IV Dye metformin AdvReac DIARRHEA Verified 05/13/17 09:32 - Medications Medications: Current Medications Acetaminophen (Tylenol 325 Mg Supp) 325 mg [place] Q4 PRN PRN Reason: Temperature Acetaminophen (Tylenol 325mg Tab) 650 mg PO Q4 PRN PRN Reason: Pain, Mild (1-3) Artificial Tears (Artificial Tears) 1 drop OU HS [facility] Last Admin: 12/20/17 21:06 Dose: 1 drop Artificial Tears (Lacri-Lube) 1 applic OD Q12 [facility] Last Admin: 12/21/17 09:49 Dose: 1 applic Aspirin (Ecotrin) 81 mg PO Q48H [facility] Last Admin: 12/21/17 09:48 Dose: 81 mg Atorvastatin Calcium (Lipitor) 40 mg PO HS [facility] Last Admin: 12/20/17 21:07 Dose: 40 mg Cholecalciferol (Vitamin D) 1,000 intlu PO DAILY [facility] Last Admin: 12/21/17 09:48 Dose: 1,000 intlu Clopidogrel Bisulfate (Plavix) 75 mg PO DAILY [facility] Last Admin: 12/21/17 09:48 Dose: 75 mg Dextrose (Dextrose 50% Inj) 0 ml IV STAT PRN; Protocol PRN Reason: Hypoglycemia Protocol Dextrose (Glutose 15) 0 gm PO ONCE PRN; Protocol PRN Reason: Hypoglycemia Protocol Donepezil HCl (Aricept) 10 mg PO HS [facility] Last Admin: 12/20/17 21:07 Dose: 10 mg Enoxaparin Sodium (Lovenox) 30 mg SC DAILY [facility] PRN Reason: Protocol Last Admin: 12/21/17 09:47 Dose: 30 mg Famotidine (Pepcid) 20 mg PO BID [facility] Last Admin: 12/20/17 16:11 Dose: 20 mg Glucagon (Glucagen Diagnostic Kit) 0 mg IM STAT PRN; Protocol PRN Reason: Hypoglycemia Protocol Metronidazole 250 mg/ (Miscellaneous) 50 mls @ 50 mls/hr IVPB Q8 [facility] PRN Reason: Protocol Last Admin: 12/21/17 09:51 Dose: 50 mls/hr Meropenem 500 mg/ Sodium (Chloride) 100 mls @ 100 mls/hr IVPB Q8 [facility] PRN Reason: Protocol Last Admin: 12/21/17 00:30 Dose: 100 mls/hr Insulin Human Lispro (Humalog) 0 units SC ACHS [facility] PRN Reason: Protocol Last Admin: 12/21/17 06:48 Dose: 8 units Levothyroxine Sodium (Synthroid) 75 mcg PO DAILY@0630 [facility] Last Admin: 12/21/17 06:04 Dose: 75 mcg Meclizine HCl (Antivert) 25 mg PO TID PRN PRN Reason: Dizziness Memantine (Namenda) 10 mg PO Q12 [facility] Last Admin: 12/21/17 09:50 Dose: 10 mg Metoprolol Tartrate (Lopressor) 12.5 mg PO DAILY PRN PRN Reason: SBP >139 Last Admin: 12/21/17 09:50 Dose: 12.5 mg Pantoprazole Sodium (Protonix Inj) 40 mg IVP DAILY [facility] Last Admin: 12/21/17 09:51 Dose: Not Given Potassium Chloride (Potassium Chloride Oral Soln) 20 meq PO DAILY [facility] Last Admin: 12/21/17 09:46 Dose: 20 meq Prednisolone Acetate (Pred Forte 1% Opht Susp) 1 drop OS QID [facility] Last Admin: 12/21/17 09:52 Dose: 1 drop Ramipril (Altace) 10 mg PO DAILY [facility] Last Admin: 12/21/17 09:51 Dose: 10 mg Risperidone (Risperdal Tab) 0.5 mg PO HS [facility] Last Admin: 12/20/17 21:07 Dose: 0.5 mg Sertraline HCl (Zoloft) 50 mg PO HS [facility] Last Admin: 12/20/17 21:11 Dose: 50 mg Timolol Maleate (Timoptic 0.5% Ophth Soln) 1 drop OS Q12 [facility] Last Admin: 12/21/17 09:49 Dose: 1 applic Vancomycin HCl (Vancocin (Oral/Rectal Use)) 125 mg PO Q6 [facility] PRN Reason: Protocol Last Admin: 12/21/17 04:03 Dose: 125 mg Physical Exam - Constitutional Appears: Non-toxic, Chronically Ill - Head Exam Head Exam: NORMOCEPHALIC - Eye Exam Eye Exam: absent: Scleral icterus Additional comments: blind left eye decreased va right eye - ENT Exam ENT Exam: Mucous Membranes Dry, Normal External Ear Exam - Neck Exam Neck exam: Negative for: Lymphadenopathy - Respiratory Exam Respiratory Exam: Decreased Breath Sounds, Rhonchi - Cardiovascular Exam Cardiovascular Exam: REGULAR RHYTHM, +S1, +S2 - GI/Abdominal Exam GI & Abdominal Exam: Diminished Bowel Sounds, Soft. absent: Tenderness - Rectal Exam Rectal Exam: Deferred - Exam Exam: NORMAL INSPECTION - Extremities Exam Extremities exam: Negative for: pedal edema - Back Exam Back exam: absent: CVA tenderness (L), CVA tenderness (R) - Neurological Exam Neurological exam: Alert, Altered, CN II-XII Intact - Psychiatric Exam Psychiatric exam: Depressed - Skin Skin Exam: Dry Results - Vital Signs Recent Vital Signs: Last Vital Signs Temp 98.1 F 12/21/17 08:18 Pulse 78 12/21/17 09:50 Resp 20 12/21/17 08:18 BP 127/69 12/21/17 09:51 Pulse Ox 94 L 12/21/17 08:18 - Labs Result Diagrams: 12/19/17 05:55 12/19/17 05:55 Labs: Laboratory Results - last 24 hr 12/20/17 12/20/17 12/21/17 15:43 22:15 06:33 POC Glucose (mg/dL) 366 H 262 H 399 H 12/21/17 10:44 POC Glucose (mg/dL) 344 H Assessment & Plan (1) C. difficile colitis Status: Suspected (2) Hypovolemic shock Status: Acute (3) Sepsis Status: Acute (4) Syncope Status: Acute (5) Abdominal pain Status: Acute (6) Urinary tract infection Status: Acute (7) Infection due to ESBL-producing Escherichia coli Status: Acute - Assessment and Plan (Free Text) Assessment: c diff ag + may be colonized denies abd pain or diarrhea cont Merrem for ESBL E Coli urine
[2017-12-21] MEDS ORDERED: Fluconazole 150 MG TAB PO ONE (15:45)
[2017-12-21] MEDS: Miconazole 2% Vaginal 7 CREAM VAG SCH (21:41)
[2017-12-21] MEDS: Artificial Tears Opht Soln OU SCH (22:02)
[2017-12-22] MEDS: Meropenem 500 MG in Sodium Chloride 0.9% 100 ML IVPB SCH ×3 (00:34→16:33)
[2017-12-22] MEDS: metroNIDAZOLE 500mg/100ml NS 250 MG in Premixed IV 1 EA IVPB SCH ×2 (01:38→11:07)
[2017-12-22] MEDS: Vancomycin 500 mg (Oral/Rectal USE) PO SCH ×4 (04:01→22:09)
[2017-12-22 06:11] LABS: ALB/GLOB RATIO 0.9 (1.0-2.1); ALBUMIN 2.9 g/dL (3.5-5.0); ALT/SGPT 23 U/L (9-52); AST/SGOT 26 U/L (14-36); BLOOD UREA NITROGEN 19 mg/dl (7-17); CALCIUM 8.4 mg/dL (8.4-10.2); GFR AFRICAN-AMERICAN > 60; GFR NON-AFRICAN AMERICAN > 60; HEMOGLOBIN 11.2 g/dL (12.0-16.0); MEAN CELL VOLUME 90.2 fl (81.0-99.0); MEAN CORPUSCULAR HEMOGLOBIN 29.7 pg (27.0-31.0); MEAN CORPUSCULAR HGB CONC 32.9 g/dL (33.0-37.0); RBC 3.77 Mil/uL (3.80-5.20); RED CELL DISTRIBUTION WIDTH 13.9 % (11.5-14.5); WHITE BLOOD COUNT 9.2 K/uL (4.8-10.8)
[2017-12-22] MEDS: Levothyroxine 75 MCG TAB PO SCH (06:35)
[2017-12-22] MEDS: Insulin Lispro (humaLOG) 100 Units/ml Inj SC SCH ×4 (08:06→22:17)
[2017-12-22] MEDS: Mineral Oil/White Petrolatum Ophth Oint OD SCH ×2 (08:09→22:06)
[2017-12-22] MEDS: Potassium Chloride 20 mEq/15 ml LIQ UD PO SCH (08:10)
[2017-12-22] MEDS: PrednisoLONE 1% OPTH SUSP OS SCH ×4 (08:11→22:05)
[2017-12-22] MEDS: Enoxaparin 30 mg Syringe SC SCH (08:11)
[2017-12-22] MEDS: Cholecalciferol 1,000 INTLU TAB PO SCH (08:12)
--- NOTE | 2017-12-22 10:16 | CP.PCM.PN ---
Subjective - Date & Time of Evaluation Date of Evaluation: 12/22/17 Time of Evaluation: 09:00 - Subjective Subjective: no fever weak bedridden nad Objective - Vital Signs/Intake and Output Vital Signs (last 24 hours): Temp Pulse Resp BP Pulse Ox 97.7 F 76 18 139/70 95 12/22/17 07:56 12/22/17 07:56 12/22/17 07:56 12/22/17 08:11 12/22/17 07:56 - Medications Medications: Current Medications Acetaminophen (Tylenol 325 Mg Supp) 325 mg [place] Q4 PRN PRN Reason: Temperature Acetaminophen (Tylenol 325mg Tab) 650 mg PO Q4 PRN PRN Reason: Pain, Mild (1-3) Artificial Tears (Artificial Tears) 1 drop OU HS [facility] Last Admin: 12/21/17 22:02 Dose: 1 drop Artificial Tears (Lacri-Lube) 1 applic OD Q12 [facility] Last Admin: 12/22/17 08:09 Dose: 1 applic Aspirin (Ecotrin) 81 mg PO Q48H [facility] Last Admin: 12/21/17 09:48 Dose: 81 mg Atorvastatin Calcium (Lipitor) 40 mg PO HS [facility] Last Admin: 12/21/17 21:41 Dose: 40 mg Cholecalciferol (Vitamin D) 1,000 intlu PO DAILY [facility] Last Admin: 12/22/17 08:12 Dose: 1,000 intlu Clopidogrel Bisulfate (Plavix) 75 mg PO DAILY [facility] Last Admin: 12/22/17 08:10 Dose: 75 mg Dextrose (Dextrose 50% Inj) 0 ml IV STAT PRN; Protocol PRN Reason: Hypoglycemia Protocol Dextrose (Glutose 15) 0 gm PO ONCE PRN; Protocol PRN Reason: Hypoglycemia Protocol Donepezil HCl (Aricept) 10 mg PO HS [facility] Last Admin: 12/21/17 21:41 Dose: 10 mg Glucagon (Glucagen Diagnostic Kit) 0 mg IM STAT PRN; Protocol PRN Reason: Hypoglycemia Protocol Meropenem 500 mg/ Sodium (Chloride) 100 mls @ 100 mls/hr IVPB Q8 [facility] PRN Reason: Protocol Last Admin: 12/22/17 08:08 Dose: 100 mls/hr Insulin Human Lispro (Humalog) 0 units SC ACHS [facility] PRN Reason: Protocol Last Admin: 12/22/17 08:06 Dose: 10 units Levothyroxine Sodium (Synthroid) 75 mcg PO DAILY@0630 [facility] Last Admin: 12/22/17 06:35 Dose: 75 mcg Meclizine HCl (Antivert) 25 mg PO TID PRN PRN Reason: Dizziness Memantine (Namenda) 10 mg PO Q12 [facility] Last Admin: 12/22/17 08:10 Dose: 10 mg Metoprolol Tartrate (Lopressor) 12.5 mg PO DAILY PRN PRN Reason: SBP >139 Last Admin: 12/21/17 09:50 Dose: 12.5 mg Miconazole Nitrate (Monistat 7 Vaginal Cream) 1 applic VAG [facility] Stop: 12/27/17 22:01 Last Admin: 12/21/17 21:41 Dose: 1 applic Phenazopyridine HCl (Pyridium) 200 mg PO TID [facility] Stop: 12/24/17 18:00 Last Admin: 12/22/17 08:09 Dose: 200 mg Potassium Chloride (Potassium Chloride Oral Soln) 20 meq PO DAILY [facility] Last Admin: 12/22/17 08:10 Dose: 20 meq Prednisolone Acetate (Pred Forte 1% Opht Susp) 1 drop OS QID [facility] Last Admin: 12/22/17 08:11 Dose: 1 drop Ramipril (Altace) 10 mg PO DAILY [facility] Last Admin: 12/22/17 08:11 Dose: 10 mg Risperidone (Risperdal Tab) 0.5 mg PO [facility] Last Admin: 12/21/17 21:42 Dose: 0.5 mg Sertraline HCl (Zoloft) 50 mg PO [facility] Last Admin: 12/21/17 21:42 Dose: 50 mg Timolol Maleate (Timoptic 0.5% Ophth Soln) 1 drop OS Q12 [facility] Last Admin: 12/22/17 08:12 Dose: 1 applic Vancomycin HCl (Vancocin (Oral/Rectal Use)) 125 mg PO Q6 [facility] PRN Reason: Protocol Last Admin: 12/22/17 04:01 Dose: 125 mg - Labs Labs: 12/22/17 05:45 12/22/17 05:45 - Constitutional Appears: Non-toxic, Chronically Ill - Head Exam Head Exam: NORMOCEPHALIC - Eye Exam Eye Exam: PERRL - ENT Exam ENT Exam: Mucous Membranes Dry - Neck Exam Neck Exam: absent: Lymphadenopathy - Respiratory Exam Respiratory Exam: Decreased Breath Sounds - Cardiovascular Exam Cardiovascular Exam: REGULAR RHYTHM - GI/Abdominal Exam GI & Abdominal Exam: Distended, Soft - Rectal Exam Rectal Exam: Deferred - Exam Exam: NORMAL INSPECTION - Extremities Exam Extremities Exam: absent: Pedal Edema - Back Exam Back Exam: absent: CVA tenderness (L), CVA tenderness (R) - Neurological Exam Neurological Exam: Alert, Awake Assessment and Plan (1) C. difficile colitis Status: Suspected (2) Hypovolemic shock Status: Acute (3) Sepsis Status: Acute (4) Syncope Status: Acute (5) Abdominal pain Status: Acute (6) Urinary tract infection Status: Acute (7) Infection due to ESBL-producing Escherichia coli Status: Acute - Assessment and Plan (Free Text) Assessment: ESBL urine- IV rx in progress cont PO Vanco for now
--- NOTE | 2017-12-22 10:45 | CP.PCM.PN ---
Subjective - Date & Time of Evaluation Date of Evaluation: 12/20/17 Time of Evaluation: 13:10 - Subjective Subjective: Patient was noted to have UTI. Has no fever Has some urinary retention. Objective - Vital Signs/Intake and Output Vital Signs (last 24 hours): Temp Pulse Resp BP Pulse Ox 97.7 F 76 18 139/70 95 12/22/17 07:56 12/22/17 07:56 12/22/17 07:56 12/22/17 08:11 12/22/17 07:56 - Medications Medications: Current Medications Acetaminophen (Tylenol 325 Mg Supp) 325 mg [place] Q4 PRN PRN Reason: Temperature Acetaminophen (Tylenol 325mg Tab) 650 mg PO Q4 PRN PRN Reason: Pain, Mild (1-3) Artificial Tears (Artificial Tears) 1 drop OU HS [facility] Last Admin: 12/21/17 22:02 Dose: 1 drop Artificial Tears (Lacri-Lube) 1 applic OD Q12 [facility] Last Admin: 12/22/17 08:09 Dose: 1 applic Aspirin (Ecotrin) 81 mg PO Q48H [facility] Last Admin: 12/21/17 09:48 Dose: 81 mg Atorvastatin Calcium (Lipitor) 40 mg PO HS [facility] Last Admin: 12/21/17 21:41 Dose: 40 mg Cholecalciferol (Vitamin D) 1,000 intlu PO DAILY [facility] Last Admin: 12/22/17 08:12 Dose: 1,000 intlu Clopidogrel Bisulfate (Plavix) 75 mg PO DAILY [facility] Last Admin: 12/22/17 08:10 Dose: 75 mg Dextrose (Dextrose 50% Inj) 0 ml IV STAT PRN; Protocol PRN Reason: Hypoglycemia Protocol Dextrose (Glutose 15) 0 gm PO ONCE PRN; Protocol PRN Reason: Hypoglycemia Protocol Donepezil HCl (Aricept) 10 mg PO HS [facility] Last Admin: 12/21/17 21:41 Dose: 10 mg Glucagon (Glucagen Diagnostic Kit) 0 mg IM STAT PRN; Protocol PRN Reason: Hypoglycemia Protocol Meropenem 500 mg/ Sodium (Chloride) 100 mls @ 100 mls/hr IVPB Q8 [facility] PRN Reason: Protocol Last Admin: 12/22/17 08:08 Dose: 100 mls/hr Insulin Human Lispro (Humalog) 0 units SC ACHS [facility] PRN Reason: Protocol Last Admin: 12/22/17 08:06 Dose: 10 units Levothyroxine Sodium (Synthroid) 75 mcg PO DAILY@0630 [facility] Last Admin: 12/22/17 06:35 Dose: 75 mcg Meclizine HCl (Antivert) 25 mg PO TID PRN PRN Reason: Dizziness Memantine (Namenda) 10 mg PO Q12 [facility] Last Admin: 12/22/17 08:10 Dose: 10 mg Metoprolol Tartrate (Lopressor) 12.5 mg PO DAILY PRN PRN Reason: SBP >139 Last Admin: 12/21/17 09:50 Dose: 12.5 mg Miconazole Nitrate (Monistat 7 Vaginal Cream) 1 applic VAG [facility] Stop: 12/27/17 22:01 Last Admin: 12/21/17 21:41 Dose: 1 applic Phenazopyridine HCl (Pyridium) 200 mg PO TID [facility] Stop: 12/24/17 18:00 Last Admin: 12/22/17 08:09 Dose: 200 mg Potassium Chloride (Potassium Chloride Oral Soln) 20 meq PO DAILY [facility] Last Admin: 12/22/17 08:10 Dose: 20 meq Prednisolone Acetate (Pred Forte 1% Opht Susp) 1 drop OS QID [facility] Last Admin: 12/22/17 08:11 Dose: 1 drop Ramipril (Altace) 10 mg PO DAILY [facility] Last Admin: 12/22/17 08:11 Dose: 10 mg Risperidone (Risperdal Tab) 0.5 mg PO [facility] Last Admin: 12/21/17 21:42 Dose: 0.5 mg Sertraline HCl (Zoloft) 50 mg PO [facility] Last Admin: 12/21/17 21:42 Dose: 50 mg Timolol Maleate (Timoptic 0.5% Ophth Soln) 1 drop OS Q12 [facility] Last Admin: 12/22/17 08:12 Dose: 1 applic Vancomycin HCl (Vancocin (Oral/Rectal Use)) 125 mg PO Q6 [facility] PRN Reason: Protocol Last Admin: 12/22/17 04:01 Dose: 125 mg - Labs Labs: 12/22/17 05:45 12/22/17 05:45
--- NOTE | 2017-12-22 10:46 | CP.PCM.PN ---
Subjective - Date & Time of Evaluation Date of Evaluation: 12/21/17 Time of Evaluation: 13:00 - Subjective Subjective: Noted increasing urinary retention Has ESBL in urine Objective - Vital Signs/Intake and Output Vital Signs (last 24 hours): Temp Pulse Resp BP Pulse Ox 97.7 F 76 18 139/70 95 12/22/17 07:56 12/22/17 07:56 12/22/17 07:56 12/22/17 08:11 12/22/17 07:56 - Medications Medications: Current Medications Acetaminophen (Tylenol 325 Mg Supp) 325 mg [place] Q4 PRN PRN Reason: Temperature Acetaminophen (Tylenol 325mg Tab) 650 mg PO Q4 PRN PRN Reason: Pain, Mild (1-3) Artificial Tears (Artificial Tears) 1 drop OU HS [facility] Last Admin: 12/21/17 22:02 Dose: 1 drop Artificial Tears (Lacri-Lube) 1 applic OD Q12 [facility] Last Admin: 12/22/17 08:09 Dose: 1 applic Aspirin (Ecotrin) 81 mg PO Q48H [facility] Last Admin: 12/21/17 09:48 Dose: 81 mg Atorvastatin Calcium (Lipitor) 40 mg PO HS [facility] Last Admin: 12/21/17 21:41 Dose: 40 mg Cholecalciferol (Vitamin D) 1,000 intlu PO DAILY [facility] Last Admin: 12/22/17 08:12 Dose: 1,000 intlu Clopidogrel Bisulfate (Plavix) 75 mg PO DAILY [facility] Last Admin: 12/22/17 08:10 Dose: 75 mg Dextrose (Dextrose 50% Inj) 0 ml IV STAT PRN; Protocol PRN Reason: Hypoglycemia Protocol Dextrose (Glutose 15) 0 gm PO ONCE PRN; Protocol PRN Reason: Hypoglycemia Protocol Donepezil HCl (Aricept) 10 mg PO HS [facility] Last Admin: 12/21/17 21:41 Dose: 10 mg Glucagon (Glucagen Diagnostic Kit) 0 mg IM STAT PRN; Protocol PRN Reason: Hypoglycemia Protocol Meropenem 500 mg/ Sodium (Chloride) 100 mls @ 100 mls/hr IVPB Q8 [facility] PRN Reason: Protocol Last Admin: 12/22/17 08:08 Dose: 100 mls/hr Insulin Human Lispro (Humalog) 0 units SC ACHS [facility] PRN Reason: Protocol Last Admin: 12/22/17 08:06 Dose: 10 units Levothyroxine Sodium (Synthroid) 75 mcg PO DAILY@0630 [facility] Last Admin: 12/22/17 06:35 Dose: 75 mcg Meclizine HCl (Antivert) 25 mg PO TID PRN PRN Reason: Dizziness Memantine (Namenda) 10 mg PO Q12 [facility] Last Admin: 12/22/17 08:10 Dose: 10 mg Metoprolol Tartrate (Lopressor) 12.5 mg PO DAILY PRN PRN Reason: SBP >139 Last Admin: 12/21/17 09:50 Dose: 12.5 mg Miconazole Nitrate (Monistat 7 Vaginal Cream) 1 applic VAG HS [facility] Stop: 12/27/17 22:01 Last Admin: 12/21/17 21:41 Dose: 1 applic Phenazopyridine HCl (Pyridium) 200 mg PO TID [facility] Stop: 12/24/17 18:00 Last Admin: 12/22/17 08:09 Dose: 200 mg Potassium Chloride (Potassium Chloride Oral Soln) 20 meq PO DAILY [facility] Last Admin: 12/22/17 08:10 Dose: 20 meq Prednisolone Acetate (Pred Forte 1% Opht Susp) 1 drop OS QID [facility] Last Admin: 12/22/17 08:11 Dose: 1 drop Ramipril (Altace) 10 mg PO DAILY [facility] Last Admin: 12/22/17 08:11 Dose: 10 mg Risperidone (Risperdal Tab) 0.5 mg PO [facility] Last Admin: 12/21/17 21:42 Dose: 0.5 mg Sertraline HCl (Zoloft) 50 mg PO [facility] Last Admin: 12/21/17 21:42 Dose: 50 mg Timolol Maleate (Timoptic 0.5% Ophth Soln) 1 drop OS Q12 [facility] Last Admin: 12/22/17 08:12 Dose: 1 applic Vancomycin HCl (Vancocin (Oral/Rectal Use)) 125 mg PO Q6 [facility] PRN Reason: Protocol Last Admin: 12/22/17 04:01 Dose: 125 mg - Labs Labs: 12/22/17 05:45 12/22/17 05:45
--- NOTE | 2017-12-22 10:47 | CP.PCM.PN ---
Subjective - Date & Time of Evaluation Date of Evaluation: 12/22/17 Time of Evaluation: 10:47 - Subjective Subjective: patient is much more comfortable today Has no fever daughter is aware of the retention and infection. Objective - Vital Signs/Intake and Output Vital Signs (last 24 hours): Temp Pulse Resp BP Pulse Ox 97.7 F 76 18 139/70 95 12/22/17 07:56 12/22/17 07:56 12/22/17 07:56 12/22/17 08:11 12/22/17 07:56 - Medications Medications: Current Medications Acetaminophen (Tylenol 325 Mg Supp) 325 mg [place] Q4 PRN PRN Reason: Temperature Acetaminophen (Tylenol 325mg Tab) 650 mg PO Q4 PRN PRN Reason: Pain, Mild (1-3) Artificial Tears (Artificial Tears) 1 drop OU HS [facility] Last Admin: 12/21/17 22:02 Dose: 1 drop Artificial Tears (Lacri-Lube) 1 applic OD Q12 [facility] Last Admin: 12/22/17 08:09 Dose: 1 applic Aspirin (Ecotrin) 81 mg PO Q48H [facility] Last Admin: 12/21/17 09:48 Dose: 81 mg Atorvastatin Calcium (Lipitor) 40 mg PO HS [facility] Last Admin: 12/21/17 21:41 Dose: 40 mg Cholecalciferol (Vitamin D) 1,000 intlu PO DAILY [facility] Last Admin: 12/22/17 08:12 Dose: 1,000 intlu Clopidogrel Bisulfate (Plavix) 75 mg PO DAILY [facility] Last Admin: 12/22/17 08:10 Dose: 75 mg Dextrose (Dextrose 50% Inj) 0 ml IV STAT PRN; Protocol PRN Reason: Hypoglycemia Protocol Dextrose (Glutose 15) 0 gm PO ONCE PRN; Protocol PRN Reason: Hypoglycemia Protocol Donepezil HCl (Aricept) 10 mg PO HS [facility] Last Admin: 12/21/17 21:41 Dose: 10 mg Glucagon (Glucagen Diagnostic Kit) 0 mg IM STAT PRN; Protocol PRN Reason: Hypoglycemia Protocol Meropenem 500 mg/ Sodium (Chloride) 100 mls @ 100 mls/hr IVPB Q8 [facility] PRN Reason: Protocol Last Admin: 12/22/17 08:08 Dose: 100 mls/hr Insulin Human Lispro (Humalog) 0 units SC ACHS [facility] PRN Reason: Protocol Last Admin: 12/22/17 08:06 Dose: 10 units Levothyroxine Sodium (Synthroid) 75 mcg PO DAILY@0630 [facility] Last Admin: 12/22/17 06:35 Dose: 75 mcg Meclizine HCl (Antivert) 25 mg PO TID PRN PRN Reason: Dizziness Memantine (Namenda) 10 mg PO Q12 [facility] Last Admin: 12/22/17 08:10 Dose: 10 mg Metoprolol Tartrate (Lopressor) 12.5 mg PO DAILY PRN PRN Reason: SBP >139 Last Admin: 12/21/17 09:50 Dose: 12.5 mg Miconazole Nitrate (Monistat 7 Vaginal Cream) 1 applic VAG HS [facility] Stop: 12/27/17 22:01 Last Admin: 12/21/17 21:41 Dose: 1 applic Phenazopyridine HCl (Pyridium) 200 mg PO TID [facility] Stop: 12/24/17 18:00 Last Admin: 12/22/17 08:09 Dose: 200 mg Potassium Chloride (Potassium Chloride Oral Soln) 20 meq PO DAILY [facility] Last Admin: 12/22/17 08:10 Dose: 20 meq Prednisolone Acetate (Pred Forte 1% Opht Susp) 1 drop OS QID [facility] Last Admin: 12/22/17 08:11 Dose: 1 drop Ramipril (Altace) 10 mg PO DAILY [facility] Last Admin: 12/22/17 08:11 Dose: 10 mg Risperidone (Risperdal Tab) 0.5 mg PO [facility] Last Admin: 12/21/17 21:42 Dose: 0.5 mg Sertraline HCl (Zoloft) 50 mg PO [facility] Last Admin: 12/21/17 21:42 Dose: 50 mg Timolol Maleate (Timoptic 0.5% Ophth Soln) 1 drop OS Q12 [facility] Last Admin: 12/22/17 08:12 Dose: 1 applic Vancomycin HCl (Vancocin (Oral/Rectal Use)) 125 mg PO Q6 [facility] PRN Reason: Protocol Last Admin: 12/22/17 04:01 Dose: 125 mg - Labs Labs: 12/22/17 05:45 12/22/17 05:45
[2017-12-22] MEDS: Miconazole 2% Vaginal 7 CREAM VAG SCH (22:07)
[2017-12-23] MEDS: Artificial Tears Opht Soln OU SCH ×2 (00:26→21:33)
[2017-12-23] MEDS: Meropenem 500 MG in Sodium Chloride 0.9% 100 ML IVPB SCH ×3 (00:27→17:05)
[2017-12-23] MEDS: Vancomycin 500 mg (Oral/Rectal USE) PO SCH ×4 (04:30→21:41)
[2017-12-23] MEDS: Levothyroxine 75 MCG TAB PO SCH (06:00)
[2017-12-23] MEDS: Mineral Oil/White Petrolatum Ophth Oint OD SCH ×2 (08:55→21:35)
[2017-12-23] MEDS: Insulin Lispro (humaLOG) 100 Units/ml Inj SC SCH ×4 (08:55→22:30)
[2017-12-23] MEDS: PrednisoLONE 1% OPTH SUSP OS SCH ×4 (08:59→21:33)
[2017-12-23] MEDS: Potassium Chloride 20 mEq/15 ml LIQ UD PO SCH (08:59)
[2017-12-23] MEDS: Cholecalciferol 1,000 INTLU TAB PO SCH (09:00)
--- NOTE | 2017-12-23 11:25 | CP.PCM.PN ---
Subjective - Date & Time of Evaluation Date of Evaluation: 12/23/17 Time of Evaluation: 08:00 - Subjective Subjective: afeb nad iv rx renewed Objective - Vital Signs/Intake and Output Vital Signs (last 24 hours): Temp Pulse Resp BP Pulse Ox 98.1 F 77 18 131/73 94 L 12/23/17 09:00 12/23/17 09:00 12/23/17 09:00 12/23/17 09:00 12/23/17 09:00 - Medications Medications: Current Medications Acetaminophen (Tylenol 325 Mg Supp) 325 mg [place] Q4 PRN PRN Reason: Temperature Acetaminophen (Tylenol 325mg Tab) 650 mg PO Q4 PRN PRN Reason: Pain, Mild (1-3) Artificial Tears (Artificial Tears) 1 drop OU HS [facility] Last Admin: 12/23/17 00:26 Dose: 1 drop Artificial Tears (Lacri-Lube) 1 applic OD Q12 [facility] Last Admin: 12/23/17 08:55 Dose: 1 applic Aspirin (Ecotrin) 81 mg PO Q48H [facility] Last Admin: 12/23/17 08:53 Dose: 81 mg Atorvastatin Calcium (Lipitor) 40 mg PO HS [facility] Last Admin: 12/22/17 22:07 Dose: 40 mg Cholecalciferol (Vitamin D) 1,000 intlu PO DAILY [facility] Last Admin: 12/23/17 09:00 Dose: 1,000 intlu Clopidogrel Bisulfate (Plavix) 75 mg PO DAILY [facility] Last Admin: 12/23/17 08:58 Dose: 75 mg Dextrose (Dextrose 50% Inj) 0 ml IV STAT PRN; Protocol PRN Reason: Hypoglycemia Protocol Dextrose (Glutose 15) 0 gm PO ONCE PRN; Protocol PRN Reason: Hypoglycemia Protocol Donepezil HCl (Aricept) 10 mg PO HS [facility] Last Admin: 12/22/17 22:06 Dose: 10 mg Glucagon (Glucagen Diagnostic Kit) 0 mg IM STAT PRN; Protocol PRN Reason: Hypoglycemia Protocol Meropenem 500 mg/ Sodium (Chloride) 100 mls @ 100 mls/hr IVPB Q8 [facility] PRN Reason: Protocol Last Admin: 12/23/17 08:57 Dose: 100 mls/hr Insulin Human Lispro (Humalog) 0 units SC ACHS [facility] PRN Reason: Protocol Last Admin: 12/23/17 08:55 Dose: 4 u Levothyroxine Sodium (Synthroid) 75 mcg PO DAILY@0630 [facility] Last Admin: 12/23/17 06:00 Dose: 75 mcg Meclizine HCl (Antivert) 25 mg PO TID PRN PRN Reason: Dizziness Memantine (Namenda) 10 mg PO Q12 [facility] Last Admin: 12/23/17 08:58 Dose: 10 mg Metoprolol Tartrate (Lopressor) 12.5 mg PO DAILY PRN PRN Reason: SBP >139 Last Admin: 12/21/17 09:50 Dose: 12.5 mg Miconazole Nitrate (Monistat 7 Vaginal Cream) 1 applic VAG [facility] Stop: 12/27/17 22:01 Last Admin: 12/22/17 22:07 Dose: 1 applic Phenazopyridine HCl (Pyridium) 200 mg PO TID [facility] Stop: 12/24/17 18:00 Last Admin: 12/23/17 08:59 Dose: 200 mg Potassium Chloride (Potassium Chloride Oral Soln) 20 meq PO DAILY [facility] Last Admin: 12/23/17 08:59 Dose: 20 meq Prednisolone Acetate (Pred Forte 1% Opht Susp) 1 drop OS QID [facility] Last Admin: 12/23/17 08:59 Dose: 1 drop Ramipril (Altace) 10 mg PO DAILY [facility] Last Admin: 12/23/17 08:51 Dose: 10 mg Risperidone (Risperdal Tab) 0.5 mg PO [facility] Last Admin: 12/22/17 22:07 Dose: 0.5 mg Sertraline HCl (Zoloft) 50 mg PO [facility] Last Admin: 12/22/17 22:06 Dose: 50 mg Tamsulosin HCl (Flomax) 0.4 mg PO DAILY [facility] Last Admin: 12/23/17 10:13 Dose: 0.4 mg Timolol Maleate (Timoptic 0.5% Ophth Soln) 1 drop OS Q12 [facility] Last Admin: 12/23/17 08:59 Dose: 1 applic Vancomycin HCl (Vancocin (Oral/Rectal Use)) 125 mg PO Q6 [facility] PRN Reason: Protocol Last Admin: 12/23/17 10:13 Dose: 125 mg - Labs Labs: 12/22/17 05:45 12/22/17 05:45 - Constitutional Appears: Non-toxic, Chronically Ill - Head Exam Head Exam: NORMOCEPHALIC - Eye Exam Eye Exam: PERRL - ENT Exam ENT Exam: Mucous Membranes Dry - Neck Exam Neck Exam: absent: Lymphadenopathy - Respiratory Exam Respiratory Exam: Decreased Breath Sounds - Cardiovascular Exam Cardiovascular Exam: REGULAR RHYTHM - GI/Abdominal Exam GI & Abdominal Exam: Distended Assessment and Plan (1) C. difficile colitis Status: Suspected (2) Hypovolemic shock Status: Acute (3) Sepsis Status: Acute (4) Syncope Status: Acute (5) Abdominal pain Status: Acute (6) Urinary tract infection Status: Acute (7) Infection due to ESBL-producing Escherichia coli Status: Acute
[2017-12-23] MEDS: Miconazole 2% Vaginal 7 CREAM VAG SCH (21:34)
[2017-12-23] MEDS ORDERED: Insulin Detemir 100 Units/ml Inj SC SCH (22:00)
[2017-12-24] MEDS: Meropenem 500 MG in Sodium Chloride 0.9% 100 ML IVPB SCH ×3 (01:18→18:17)
[2017-12-24] MEDS: Vancomycin 500 mg (Oral/Rectal USE) PO SCH ×4 (04:34→22:07)
--- NOTE | 2017-12-24 04:39 | CON ---
DATE: 12/23/2017 COMPREHENSIVE UROLOGIC CONSULTATION. TIME OF CONSULTATION: 6:25 p.m. BRIEF HISTORY: The patient is an 82-year-old female who was originally brought to the ER at [facility] with a history of two episodes of nonbloody/nonbilious vomiting, multiple episodes of watery diarrhea, and a brief syncopal episode. She also has a past medical history of insulin-dependent diabetes mellitus type 2, hypertension, hypothyroidism, CVA with left-sided weakness, diverticulitis, and advanced dementia. The patient was found to be in acute urinary retention and was straight cathed several times, complaining of lower abdominal distention with pain. Her last catheterization resulted in a residual urine of about 500 mL and it was decided to leave in an indwelling Solis catheter until her original pathology improves. The patient was started on Pyridium for lower abdominal discomfort, and her urine is now colored deep orange with some blood-tinged urine. Also, Flomax was added to her p.o. regimen to try to help her void urine. Most of the history was obtained from the nursing staff. 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 PAST SURGICAL HISTORY: Includes partial thyroidectomy and tonsillectomy. SOCIAL HISTORY: She notes no history of any tobacco use or alcohol use. ALLERGIES: INCLUDE ASPIRIN, SULFA, ANTIBIOTICS, IODINE CONTRAST, AND METFORMIN. PHYSICAL EXAMINATION: Today, GENERAL: She is a well-developed, well-nourished obese female. She is somewhat lethargic at this hour. HEENT EXAMINATION: Appears to be grossly within normal limits except blindness in both eyes. NECK: Supple. ABDOMEN: Soft, nondistended, nontender. She is not complaining of any pain at this hour. She has no CVA tenderness and no suprapubic tenderness. Solis catheter is draining deep dark orange colored urine, which also appears to be slightly blood tinged. Urine culture showed E. coli ESBL. The patient is currently on meropenem IV antibiotics, which is sensitive. LABORATORY DATA: Laboratory evaluation on 12/22/2017, shows a CBC with a WBC count of 9.2, hemoglobin of 11.2, hematocrit of 34, and a platelet count of 354,000. Chem profile on 12/22/2017 shows a sodium of 135, potassium 3.9, chloride 100, CO2 of 25, BUN and creatinine 19 and 0.7 respectively and a glucose of 244. GFR was greater than 60. Calcium 8.4. DIAGNOSTIC IMPRESSION: For this patient is, 1. Escherichia coli extended-spectrum beta-lactamases urinary tract infection. 2. Urinary retention. PLAN: Plan to this patient is, 1. Continue the patient on her current IV antibiotic regimen. 2. Continue Flomax 0.4 mg daily. 3. Get repeat urinalysis and C and S in a few days, and then the patient can be giving a voiding trail when the urine seems to be more sterile. Edd Resendiz MD MTDD
[2017-12-24] MEDS: Levothyroxine 75 MCG TAB PO SCH (06:04)
[2017-12-24] MEDS: Insulin Lispro (humaLOG) 100 Units/ml Inj SC SCH ×4 (08:23→22:45)
[2017-12-24] MEDS: Cholecalciferol 1,000 INTLU TAB PO SCH (10:01)
[2017-12-24] MEDS: Potassium Chloride 20 mEq/15 ml LIQ UD PO SCH ×2 (10:04→12:30)
[2017-12-24] MEDS: PrednisoLONE 1% OPTH SUSP OS SCH ×4 (10:26→22:09)
[2017-12-24] MEDS: Mineral Oil/White Petrolatum Ophth Oint OD SCH ×2 (10:29→22:08)
--- NOTE | 2017-12-24 11:15 | CP.PCM.PN ---
Subjective - Date & Time of Evaluation Date of Evaluation: 12/23/17 Time of Evaluation: 10:10 - Subjective Subjective: Patient remains afebrile. Objective - Vital Signs/Intake and Output Vital Signs (last 24 hours): Temp Pulse Resp BP Pulse Ox 98.6 F 85 20 126/63 93 L 12/24/17 08:33 12/24/17 10:02 12/24/17 08:33 12/24/17 10:02 12/24/17 08:33 Intake and Output: 12/24/17 12/24/17 06:59 18:59 Output Total 850 Balance -850 - Medications Medications: Current Medications Acetaminophen (Tylenol 325 Mg Supp) 325 mg IN Q4 PRN PRN Reason: Temperature Acetaminophen (Tylenol 325mg Tab) 650 mg PO Q4 PRN PRN Reason: Pain, Mild (1-3) Artificial Tears (Artificial Tears) 1 drop OU HS [facility] Last Admin: 12/23/17 21:33 Dose: 1 drop Artificial Tears (Lacri-Lube) 1 applic OD Q12 [facility] Last Admin: 12/24/17 10:29 Dose: 1 applic Aspirin (Ecotrin) 81 mg PO Q48H [facility] Last Admin: 12/23/17 08:53 Dose: 81 mg Atorvastatin Calcium (Lipitor) 40 mg PO HS [facility] Last Admin: 12/23/17 21:35 Dose: 40 mg Cholecalciferol (Vitamin D) 1,000 intlu PO DAILY [facility] Last Admin: 12/24/17 10:01 Dose: 1,000 intlu Clopidogrel Bisulfate (Plavix) 75 mg PO DAILY [facility] Last Admin: 12/24/17 10:00 Dose: 75 mg Dextrose (Dextrose 50% Inj) 0 ml IV STAT PRN; Protocol PRN Reason: Hypoglycemia Protocol Dextrose (Glutose 15) 0 gm PO ONCE PRN; Protocol PRN Reason: Hypoglycemia Protocol Donepezil HCl (Aricept) 10 mg PO HS [facility] Last Admin: 12/23/17 21:35 Dose: 10 mg Glucagon (Glucagen Diagnostic Kit) 0 mg IM STAT PRN; Protocol PRN Reason: Hypoglycemia Protocol Meropenem 500 mg/ Sodium (Chloride) 100 mls @ 100 mls/hr IVPB Q8 [facility] PRN Reason: Protocol Last Admin: 12/24/17 10:13 Dose: 100 mls/hr Insulin Human Lispro (Humalog) 0 units SC ACHS [facility] PRN Reason: Protocol Last Admin: 12/24/17 08:23 Dose: 10 u Levothyroxine Sodium (Synthroid) 75 mcg PO DAILY@0630 [facility] Last Admin: 12/24/17 06:04 Dose: 75 mcg Meclizine HCl (Antivert) 25 mg PO TID PRN PRN Reason: Dizziness Memantine (Namenda) 10 mg PO Q12 [facility] Last Admin: 12/24/17 10:00 Dose: 10 mg Metoprolol Tartrate (Lopressor) 12.5 mg PO DAILY PRN PRN Reason: SBP >139 Last Admin: 12/24/17 10:02 Dose: 12.5 mg Miconazole Nitrate (Monistat 7 Vaginal Cream) 1 applic VAG HS [facility] Stop: 12/27/17 22:01 Last Admin: 12/23/17 21:34 Dose: 1 applic Phenazopyridine HCl (Pyridium) 200 mg PO TID [facility] Stop: 12/24/17 18:00 Last Admin: 12/24/17 10:01 Dose: 200 mg Potassium Chloride (Potassium Chloride Oral Soln) 20 meq PO DAILY [facility] Last Admin: 12/23/17 08:59 Dose: 20 meq Prednisolone Acetate (Pred Forte 1% Opht Susp) 1 drop OS QID [facility] Last Admin: 12/24/17 10:26 Dose: 1 drop Ramipril (Altace) 10 mg PO DAILY [facility] Last Admin: 12/24/17 10:02 Dose: 10 mg Risperidone (Risperdal Tab) 0.5 mg PO [facility] Last Admin: 12/23/17 21:35 Dose: 0.5 mg Sertraline HCl (Zoloft) 50 mg PO [facility] Last Admin: 12/23/17 21:36 Dose: 50 mg Tamsulosin HCl (Flomax) 0.4 mg PO DAILY [facility] Last Admin: 12/24/17 10:03 Dose: 0.4 mg Timolol Maleate (Timoptic 0.5% Ophth Soln) 1 drop OS Q12 [facility] Last Admin: 12/24/17 10:30 Dose: 1 applic Vancomycin HCl (Vancocin (Oral/Rectal Use)) 125 mg PO Q6 [facility] PRN Reason: Protocol Last Admin: 12/24/17 10:31 Dose: 125 mg - Labs Labs: 12/22/17 05:45 12/22/17 05:45
--- NOTE | 2017-12-24 11:16 | CP.PCM.PN ---
Subjective - Date & Time of Evaluation Date of Evaluation: 12/24/17 Time of Evaluation: 11:15 - Subjective Subjective: Patient continues to be well On iv antibiotics Has no fever. Daughter does not want subacute rehab. Objective - Vital Signs/Intake and Output Vital Signs (last 24 hours): Temp Pulse Resp BP Pulse Ox 98.6 F 85 20 126/63 93 L 12/24/17 08:33 12/24/17 10:02 12/24/17 08:33 12/24/17 10:02 12/24/17 08:33 Intake and Output: 12/24/17 12/24/17 06:59 18:59 Output Total 850 Balance -850 - Medications Medications: Current Medications Acetaminophen (Tylenol 325 Mg Supp) 325 mg [place] Q4 PRN PRN Reason: Temperature Acetaminophen (Tylenol 325mg Tab) 650 mg PO Q4 PRN PRN Reason: Pain, Mild (1-3) Artificial Tears (Artificial Tears) 1 drop OU HS [facility] Last Admin: 12/23/17 21:33 Dose: 1 drop Artificial Tears (Lacri-Lube) 1 applic OD Q12 [facility] Last Admin: 12/24/17 10:29 Dose: 1 applic Aspirin (Ecotrin) 81 mg PO Q48H [facility] Last Admin: 12/23/17 08:53 Dose: 81 mg Atorvastatin Calcium (Lipitor) 40 mg PO HS [facility] Last Admin: 12/23/17 21:35 Dose: 40 mg Cholecalciferol (Vitamin D) 1,000 intlu PO DAILY [facility] Last Admin: 12/24/17 10:01 Dose: 1,000 intlu Clopidogrel Bisulfate (Plavix) 75 mg PO DAILY [facility] Last Admin: 12/24/17 10:00 Dose: 75 mg Dextrose (Dextrose 50% Inj) 0 ml IV STAT PRN; Protocol PRN Reason: Hypoglycemia Protocol Dextrose (Glutose 15) 0 gm PO ONCE PRN; Protocol PRN Reason: Hypoglycemia Protocol Donepezil HCl (Aricept) 10 mg PO [facility] Last Admin: 12/23/17 21:35 Dose: 10 mg Glucagon (Glucagen Diagnostic Kit) 0 mg IM STAT PRN; Protocol PRN Reason: Hypoglycemia Protocol Meropenem 500 mg/ Sodium (Chloride) 100 mls @ 100 mls/hr IVPB Q8 [facility] PRN Reason: Protocol Last Admin: 12/24/17 10:13 Dose: 100 mls/hr Insulin Human Lispro (Humalog) 0 units SC ACHS [facility] PRN Reason: Protocol Last Admin: 12/24/17 08:23 Dose: 10 u Levothyroxine Sodium (Synthroid) 75 mcg PO DAILY@0630 [facility] Last Admin: 12/24/17 06:04 Dose: 75 mcg Meclizine HCl (Antivert) 25 mg PO TID PRN PRN Reason: Dizziness Memantine (Namenda) 10 mg PO Q12 [facility] Last Admin: 12/24/17 10:00 Dose: 10 mg Metoprolol Tartrate (Lopressor) 12.5 mg PO DAILY PRN PRN Reason: SBP >139 Last Admin: 12/24/17 10:02 Dose: 12.5 mg Miconazole Nitrate (Monistat 7 Vaginal Cream) 1 applic VAG HS [facility] Stop: 12/27/17 22:01 Last Admin: 12/23/17 21:34 Dose: 1 applic Phenazopyridine HCl (Pyridium) 200 mg PO TID [facility] Stop: 12/24/17 18:00 Last Admin: 12/24/17 10:01 Dose: 200 mg Potassium Chloride (Potassium Chloride Oral Soln) 20 meq PO DAILY [facility] Last Admin: 12/23/17 08:59 Dose: 20 meq Prednisolone Acetate (Pred Forte 1% Opht Susp) 1 drop OS QID [facility] Last Admin: 12/24/17 10:26 Dose: 1 drop Ramipril (Altace) 10 mg PO DAILY [facility] Last Admin: 12/24/17 10:02 Dose: 10 mg Risperidone (Risperdal Tab) 0.5 mg PO [facility] Last Admin: 12/23/17 21:35 Dose: 0.5 mg Sertraline HCl (Zoloft) 50 mg PO [facility] Last Admin: 12/23/17 21:36 Dose: 50 mg Tamsulosin HCl (Flomax) 0.4 mg PO DAILY [facility] Last Admin: 12/24/17 10:03 Dose: 0.4 mg Timolol Maleate (Timoptic 0.5% Ophth Soln) 1 drop OS Q12 [facility] Last Admin: 12/24/17 10:30 Dose: 1 applic Vancomycin HCl (Vancocin (Oral/Rectal Use)) 125 mg PO Q6 [facility] PRN Reason: Protocol Last Admin: 12/24/17 10:31 Dose: 125 mg - Labs Labs: 12/22/17 05:45 12/22/17 05:45
[2017-12-24 13:04] LABS: BLOOD UREA NITROGEN 23 mg/dl (7-17); GFR AFRICAN-AMERICAN > 60
[2017-12-24 13:05] LABS: CALCIUM 8.4 mg/dL (8.4-10.2)
[2017-12-24 13:24] LABS: GFR NON-AFRICAN AMERICAN > 60
[2017-12-24] MEDS: Artificial Tears Opht Soln OU SCH (22:08)
[2017-12-24] MEDS: Miconazole 2% Vaginal 7 CREAM VAG SCH (22:09)
[2017-12-25] MEDS: Meropenem 500 MG in Sodium Chloride 0.9% 100 ML IVPB SCH ×3 (00:33→16:49)
[2017-12-25] MEDS: Vancomycin 500 mg (Oral/Rectal USE) PO SCH ×4 (04:30→22:36)
[2017-12-25] MEDS: Levothyroxine 75 MCG TAB PO SCH (06:18)
[2017-12-25] MEDS: Cholecalciferol 1,000 INTLU TAB PO SCH (08:37)
[2017-12-25] MEDS: Insulin Lispro (humaLOG) 100 Units/ml Inj SC SCH ×4 (08:42→22:36)
[2017-12-25] MEDS: Mineral Oil/White Petrolatum Ophth Oint OD SCH ×2 (08:43→22:33)
[2017-12-25] MEDS: PrednisoLONE 1% OPTH SUSP OS SCH ×4 (08:43→22:34)
[2017-12-25] MEDS: Potassium Chloride 20 mEq/15 ml LIQ UD PO SCH (08:45)
--- NOTE | 2017-12-25 19:48 | CP.PCM.PN ---
Subjective - Date & Time of Evaluation Date of Evaluation: 12/25/17 Time of Evaluation: 08:00 - Subjective Subjective: improving on Merrem afeb no diarrhea daughter at bedside Objective - Vital Signs/Intake and Output Vital Signs (last 24 hours): Temp Pulse Resp BP Pulse Ox 98.2 F 71 18 119/64 95 12/25/17 08:20 12/25/17 08:20 12/25/17 08:20 12/25/17 08:37 12/25/17 08:20 Intake and Output: 12/25/17 12/26/17 18:59 06:59 Output Total 600 Balance -600 - Medications Medications: Current Medications Acetaminophen (Tylenol 325 Mg Supp) 325 mg [place] Q4 PRN PRN Reason: Temperature Acetaminophen (Tylenol 325mg Tab) 650 mg PO Q4 PRN PRN Reason: Pain, Mild (1-3) Artificial Tears (Artificial Tears) 1 drop OU HS [facility] Last Admin: 12/24/17 22:08 Dose: 1 drop Artificial Tears (Lacri-Lube) 1 applic OD Q12 [facility] Last Admin: 12/25/17 08:43 Dose: 1 applic Aspirin (Ecotrin) 81 mg PO Q48H [facility] Last Admin: 12/25/17 08:37 Dose: 81 mg Atorvastatin Calcium (Lipitor) 40 mg PO HS [facility] Last Admin: 12/24/17 22:09 Dose: 40 mg Cholecalciferol (Vitamin D) 1,000 intlu PO DAILY [facility] Last Admin: 12/25/17 08:37 Dose: 1,000 intlu Clopidogrel Bisulfate (Plavix) 75 mg PO DAILY [facility] Last Admin: 12/25/17 08:36 Dose: 75 mg Dextrose (Dextrose 50% Inj) 0 ml IV STAT PRN; Protocol PRN Reason: Hypoglycemia Protocol Dextrose (Glutose 15) 0 gm PO ONCE PRN; Protocol PRN Reason: Hypoglycemia Protocol Donepezil HCl (Aricept) 10 mg PO HS [facility] Last Admin: 12/24/17 22:08 Dose: 10 mg Glucagon (Glucagen Diagnostic Kit) 0 mg IM STAT PRN; Protocol PRN Reason: Hypoglycemia Protocol Meropenem 500 mg/ Sodium (Chloride) 100 mls @ 100 mls/hr IVPB Q8 [facility] PRN Reason: Protocol Last Admin: 12/25/17 16:49 Dose: 100 mls/hr Insulin Human Lispro (Humalog) 0 units SC ACHS [facility] PRN Reason: Protocol Last Admin: 12/25/17 16:48 Dose: 8 u Levothyroxine Sodium (Synthroid) 75 mcg PO DAILY@0630 [facility] Last Admin: 12/25/17 06:18 Dose: 75 mcg Meclizine HCl (Antivert) 25 mg PO TID PRN PRN Reason: Dizziness Memantine (Namenda) 10 mg PO Q12 [facility] Last Admin: 12/25/17 08:36 Dose: 10 mg Metoprolol Tartrate (Lopressor) 12.5 mg PO DAILY PRN PRN Reason: SBP >139 Last Admin: 12/25/17 00:34 Dose: 12.5 mg Miconazole Nitrate (Monistat 7 Vaginal Cream) 1 applic VAG [facility] Stop: 12/27/17 22:01 Last Admin: 12/24/17 22:09 Dose: 1 applic Potassium Chloride (Potassium Chloride Oral Soln) 20 meq PO DAILY [facility] Last Admin: 12/25/17 08:45 Dose: 20 meq Prednisolone Acetate (Pred Forte 1% Opht Susp) 1 drop OS QID [facility] Last Admin: 12/25/17 16:49 Dose: 1 drop Ramipril (Altace) 10 mg PO DAILY [facility] Last Admin: 12/25/17 08:37 Dose: 10 mg Risperidone (Risperdal Tab) 0.5 mg PO [facility] Last Admin: 12/24/17 22:08 Dose: 0.5 mg Sertraline HCl (Zoloft) 50 mg PO [facility] Last Admin: 12/24/17 22:07 Dose: 50 mg Tamsulosin HCl (Flomax) 0.4 mg PO DAILY [facility] Last Admin: 12/25/17 08:42 Dose: 0.4 mg Timolol Maleate (Timoptic 0.5% Ophth Soln) 1 drop OS Q12 [facility] Last Admin: 12/25/17 08:43 Dose: 1 applic Vancomycin HCl (Vancocin (Oral/Rectal Use)) 125 mg PO Q6 [facility] PRN Reason: Protocol Last Admin: 12/25/17 16:48 Dose: 125 mg - Labs Labs: 12/22/17 05:45 12/24/17 12:10 - Constitutional Appears: Non-toxic, Chronically Ill - Head Exam Head Exam: NORMOCEPHALIC - Eye Exam Eye Exam: PERRL - ENT Exam ENT Exam: Mucous Membranes Dry - Neck Exam Neck Exam: absent: Lymphadenopathy - Respiratory Exam Respiratory Exam: Decreased Breath Sounds - Cardiovascular Exam Cardiovascular Exam: REGULAR RHYTHM - GI/Abdominal Exam GI & Abdominal Exam: Distended, Soft - Rectal Exam Rectal Exam: Deferred - Exam Exam: NORMAL INSPECTION - Extremities Exam Extremities Exam: absent: Pedal Edema - Back Exam Back Exam: absent: CVA tenderness (L), CVA tenderness (R) - Neurological Exam Neurological Exam: Alert, Altered, CN II-XII Intact Assessment and Plan (1) C. difficile colitis Status: Suspected (2) Hypovolemic shock Status: Acute (3) Sepsis Status: Acute (4) Syncope Status: Acute (5) Abdominal pain Status: Acute (6) Urinary tract infection Status: Acute (7) Infection due to ESBL-producing Escherichia coli Status: Acute - Assessment and Plan (Free Text) Assessment: consider d/c antibiotics after 7 days complete 10 days po vanco follow up [facility] Dr Mcginnis
[2017-12-25] MEDS: Miconazole 2% Vaginal 7 CREAM VAG SCH (22:32)
[2017-12-25] MEDS: Artificial Tears Opht Soln OU SCH (22:35)
--- NOTE | 2017-12-25 22:43 | PN ---
DATE: 12/25/2017 FOLLOWUP NOTE SUBJECTIVE: The patient is much more comfortable today. No complaint of pain. Solis catheter is now draining orange urine well with no evidence of gross hematuria at this time. PHYSICAL EXAMINATION: ABDOMEN: Soft, nondistended, nontender. No CVA tenderness and no suprapubic tenderness. DIAGNOSTIC IMPRESSION: For this patient is, 1. Acute urinary retention. 2. Dysuria. 3. Hematuria PLAN: Plan for this patient is to discontinue the Solis catheter for a voiding trial when the patient is completely stable regarding her original admission pathology and urinalysis that is free of bacteria and wbc's and the urine culture is negative. The patient can then be given a voiding trial. Edd Resendiz MD MTDD
[2017-12-26] MEDS: Meropenem 500 MG in Sodium Chloride 0.9% 100 ML IVPB SCH ×3 (01:39→16:46)
[2017-12-26] MEDS: Vancomycin 500 mg (Oral/Rectal USE) PO SCH ×4 (04:31→22:06)
[2017-12-26] MEDS: Levothyroxine 75 MCG TAB PO SCH (06:05)
[2017-12-26] MEDS: Cholecalciferol 1,000 INTLU TAB PO SCH (08:45)
[2017-12-26] MEDS: Potassium Chloride 20 mEq/15 ml LIQ UD PO SCH (08:45)
[2017-12-26] MEDS: Insulin Lispro (humaLOG) 100 Units/ml Inj SC SCH ×4 (08:46→22:03)
[2017-12-26] MEDS: Mineral Oil/White Petrolatum Ophth Oint OD SCH ×2 (08:46→22:04)
[2017-12-26] MEDS: PrednisoLONE 1% OPTH SUSP OS SCH ×4 (08:47→22:03)
--- NOTE | 2017-12-26 13:23 | CP.PCM.PN ---
Subjective - Date & Time of Evaluation Date of Evaluation: 12/26/17 Time of Evaluation: 08:00 - Subjective Subjective: afeb nad seen on rounds Objective - Vital Signs/Intake and Output Vital Signs (last 24 hours): Temp Pulse Resp BP Pulse Ox 98.1 F 82 20 155/75 H 93 L 12/26/17 08:29 12/26/17 08:44 12/26/17 08:29 12/26/17 08:44 12/26/17 08:29 Intake and Output: 12/26/17 12/26/17 06:59 18:59 Output Total 1050 Balance -1050 - Medications Medications: Current Medications Acetaminophen (Tylenol 325 Mg Supp) 325 mg [place] Q4 PRN PRN Reason: Temperature Acetaminophen (Tylenol 325mg Tab) 650 mg PO Q4 PRN PRN Reason: Pain, Mild (1-3) Artificial Tears (Artificial Tears) 1 drop OU HS [facility] Last Admin: 12/25/17 22:35 Dose: 1 drop Artificial Tears (Lacri-Lube) 1 applic OD Q12 [facility] Last Admin: 12/26/17 08:46 Dose: 1 applic Aspirin (Ecotrin) 81 mg PO Q48H [facility] Last Admin: 12/25/17 08:37 Dose: 81 mg Atorvastatin Calcium (Lipitor) 40 mg PO HS [facility] Last Admin: 12/25/17 22:30 Dose: 40 mg Cholecalciferol (Vitamin D) 1,000 intlu PO DAILY [facility] Last Admin: 12/26/17 08:45 Dose: 1,000 intlu Clopidogrel Bisulfate (Plavix) 75 mg PO DAILY [facility] Last Admin: 12/26/17 08:45 Dose: 75 mg Dextrose (Dextrose 50% Inj) 0 ml IV STAT PRN; Protocol PRN Reason: Hypoglycemia Protocol Dextrose (Glutose 15) 0 gm PO ONCE PRN; Protocol PRN Reason: Hypoglycemia Protocol Donepezil HCl (Aricept) 10 mg PO HS [facility] Last Admin: 12/25/17 22:30 Dose: 10 mg Enoxaparin Sodium (Lovenox) 40 mg SC DAILY [facility] PRN Reason: Protocol Glucagon (Glucagen Diagnostic Kit) 0 mg IM STAT PRN; Protocol PRN Reason: Hypoglycemia Protocol Meropenem 500 mg/ Sodium (Chloride) 100 mls @ 100 mls/hr IVPB Q8 [facility] PRN Reason: Protocol Last Admin: 12/26/17 08:47 Dose: 100 mls/hr Insulin Human Lispro (Humalog) 0 units SC ACHS [facility] PRN Reason: Protocol Last Admin: 12/26/17 12:13 Dose: 8 u Levothyroxine Sodium (Synthroid) 75 mcg PO DAILY@0630 [facility] Last Admin: 12/26/17 06:05 Dose: 75 mcg Meclizine HCl (Antivert) 25 mg PO TID PRN PRN Reason: Dizziness Memantine (Namenda) 10 mg PO Q12 [facility] Last Admin: 12/26/17 08:45 Dose: 10 mg Metoprolol Tartrate (Lopressor) 12.5 mg PO DAILY PRN PRN Reason: SBP >139 Last Admin: 12/26/17 08:44 Dose: 12.5 mg Miconazole Nitrate (Monistat 7 Vaginal Cream) 1 applic VAG [facility] Stop: 12/27/17 22:01 Last Admin: 12/25/17 22:32 Dose: 1 applic Potassium Chloride (Potassium Chloride Oral Soln) 20 meq PO DAILY [facility] Last Admin: 12/26/17 08:45 Dose: 20 meq Prednisolone Acetate (Pred Forte 1% Opht Susp) 1 drop OS QID [facility] Last Admin: 12/26/17 12:14 Dose: 1 drop Ramipril (Altace) 10 mg PO DAILY [facility] Last Admin: 12/26/17 08:44 Dose: 10 mg Risperidone (Risperdal Tab) 0.5 mg PO [facility] Last Admin: 12/25/17 22:29 Dose: 0.5 mg Sertraline HCl (Zoloft) 50 mg PO [facility] Last Admin: 12/25/17 22:31 Dose: 50 mg Tamsulosin HCl (Flomax) 0.4 mg PO DAILY [facility] Last Admin: 12/26/17 08:45 Dose: 0.4 mg Timolol Maleate (Timoptic 0.5% Ophth Soln) 1 drop OS Q12 [facility] Last Admin: 12/26/17 08:47 Dose: 1 applic Vancomycin HCl (Vancocin (Oral/Rectal Use)) 125 mg PO Q6 [facility] PRN Reason: Protocol Last Admin: 12/26/17 09:06 Dose: 125 mg - Labs Labs: 12/22/17 05:45 12/24/17 12:10 - Constitutional Appears: Non-toxic, Chronically Ill - Head Exam Head Exam: NORMOCEPHALIC - Eye Exam Eye Exam: absent: Scleral icterus - ENT Exam ENT Exam: Mucous Membranes Dry - Neck Exam Neck Exam: absent: Lymphadenopathy - Respiratory Exam Respiratory Exam: Decreased Breath Sounds - Cardiovascular Exam Cardiovascular Exam: REGULAR RHYTHM - GI/Abdominal Exam GI & Abdominal Exam: Distended, Soft - Rectal Exam Rectal Exam: Deferred - Exam Exam: NORMAL INSPECTION - Extremities Exam Extremities Exam: absent: Pedal Edema - Back Exam Back Exam: absent: CVA tenderness (L), CVA tenderness (R) Assessment and Plan (1) C. difficile colitis Status: Suspected (2) Hypovolemic shock Status: Acute (3) Sepsis Status: Acute (4) Syncope Status: Acute (5) Abdominal pain Status: Acute (6) Urinary tract infection Status: Acute (7) Infection due to ESBL-producing Escherichia coli Status: Acute
[2017-12-26] MEDS: Artificial Tears Opht Soln OU SCH (22:03)
[2017-12-26] MEDS: Miconazole 2% Vaginal 7 CREAM VAG SCH (22:04)
[2017-12-27] MEDS: Meropenem 500 MG in Sodium Chloride 0.9% 100 ML IVPB SCH ×3 (01:12→16:49)
[2017-12-27] MEDS: Vancomycin 500 mg (Oral/Rectal USE) PO SCH ×4 (04:38→22:04)
[2017-12-27] MEDS: Levothyroxine 75 MCG TAB PO SCH (07:08)
[2017-12-27 09:55] LABS: HEMOGLOBIN 11.1 g/dL (12.0-16.0); MEAN CELL VOLUME 89.9 fl (81.0-99.0); MEAN CORPUSCULAR HEMOGLOBIN 30.6 pg (27.0-31.0); RBC 3.62 Mil/uL (3.80-5.20); RED CELL DISTRIBUTION WIDTH 14.2 % (11.5-14.5); WHITE BLOOD COUNT 8.8 K/uL (4.8-10.8)
[2017-12-27] MEDS: Insulin Lispro (humaLOG) 100 Units/ml Inj SC SCH ×4 (09:57→21:30)
[2017-12-27] MEDS: Mineral Oil/White Petrolatum Ophth Oint OD SCH ×2 (09:58→21:16)
[2017-12-27] MEDS: Enoxaparin 40 mg Syringe SC SCH (09:58)
[2017-12-27] MEDS: Potassium Chloride 20 mEq/15 ml LIQ UD PO SCH (09:59)
[2017-12-27] MEDS: PrednisoLONE 1% OPTH SUSP OS SCH ×4 (10:00→22:07)
[2017-12-27] MEDS: Cholecalciferol 1,000 INTLU TAB PO SCH (10:00)
[2017-12-27 10:31] LABS: ALBUMIN 2.9 g/dL (3.5-5.0); ALT/SGPT 30 U/L (9-52); AST/SGOT 30 U/L (14-36); BLOOD UREA NITROGEN 17 mg/dl (7-17); CALCIUM 8.5 mg/dL (8.4-10.2); GFR AFRICAN-AMERICAN > 60; GFR NON-AFRICAN AMERICAN > 60
[2017-12-27] MEDS: Artificial Tears Opht Soln OU SCH (21:16)
[2017-12-27] MEDS: Miconazole 2% Vaginal 7 CREAM VAG SCH (22:04)
[2017-12-28] MEDS: Meropenem 500 MG in Sodium Chloride 0.9% 100 ML IVPB SCH ×3 (00:42→17:09)
[2017-12-28] MEDS: Vancomycin 500 mg (Oral/Rectal USE) PO SCH ×4 (04:22→21:37)
[2017-12-28] MEDS: Levothyroxine 75 MCG TAB PO SCH (05:58)
[2017-12-28] MEDS: Insulin Lispro (humaLOG) 100 Units/ml Inj SC SCH ×4 (07:15→21:35)
[2017-12-28] MEDS: Enoxaparin 40 mg Syringe SC SCH (08:53)
[2017-12-28] MEDS: Potassium Chloride 20 mEq/15 ml LIQ UD PO SCH (08:53)
[2017-12-28] MEDS: Cholecalciferol 1,000 INTLU TAB PO SCH (08:54)
[2017-12-28] MEDS: Mineral Oil/White Petrolatum Ophth Oint OD SCH ×2 (08:55→20:29)
[2017-12-28] MEDS: PrednisoLONE 1% OPTH SUSP OS SCH ×4 (08:56→21:33)
--- NOTE | 2017-12-28 11:45 | CP.PCM.PN ---
Subjective - Date & Time of Evaluation Date of Evaluation: 12/28/17 Time of Evaluation: 09:00 - Subjective Subjective: afeb seen on rounds daughter at bedside nad Objective - Vital Signs/Intake and Output Vital Signs (last 24 hours): Temp Pulse Resp BP Pulse Ox 97.2 F L 73 95 H 148/65 95 12/28/17 08:11 12/28/17 08:54 12/28/17 08:11 12/28/17 08:55 12/28/17 00:36 - Medications Medications: Current Medications Acetaminophen (Tylenol 325 Mg Supp) 325 mg [place] Q4 PRN PRN Reason: Temperature Acetaminophen (Tylenol 325mg Tab) 650 mg PO Q4 PRN PRN Reason: Pain, Mild (1-3) Artificial Tears (Artificial Tears) 1 drop OU HS [facility] Last Admin: 12/27/17 21:16 Dose: 1 drop Artificial Tears (Lacri-Lube) 1 applic OD Q12 [facility] Last Admin: 12/28/17 08:55 Dose: 1 applic Aspirin (Ecotrin) 81 mg PO Q48H [facility] Last Admin: 12/27/17 09:57 Dose: 81 mg Atorvastatin Calcium (Lipitor) 40 mg PO HS [facility] Last Admin: 12/27/17 21:32 Dose: 40 mg Cholecalciferol (Vitamin D) 1,000 intlu PO DAILY [facility] Last Admin: 12/28/17 08:54 Dose: 1,000 intlu Clopidogrel Bisulfate (Plavix) 75 mg PO DAILY [facility] Last Admin: 12/28/17 08:54 Dose: 75 mg Dextrose (Dextrose 50% Inj) 0 ml IV STAT PRN; Protocol PRN Reason: Hypoglycemia Protocol Dextrose (Glutose 15) 0 gm PO ONCE PRN; Protocol PRN Reason: Hypoglycemia Protocol Donepezil HCl (Aricept) 10 mg PO HS [facility] Last Admin: 12/27/17 21:32 Dose: 10 mg Enoxaparin Sodium (Lovenox) 40 mg SC DAILY [facility] PRN Reason: Protocol Last Admin: 12/28/17 08:53 Dose: 40 mg Glucagon (Glucagen Diagnostic Kit) 0 mg IM STAT PRN; Protocol PRN Reason: Hypoglycemia Protocol Meropenem 500 mg/ Sodium (Chloride) 100 mls @ 100 mls/hr IVPB Q8 [facility] PRN Reason: Protocol Last Admin: 12/28/17 08:57 Dose: 100 mls/hr Insulin Human Lispro (Humalog) 0 units SC ACHS [facility] PRN Reason: Protocol Last Admin: 12/28/17 07:15 Dose: 4 u Levothyroxine Sodium (Synthroid) 75 mcg PO DAILY@0630 [facility] Last Admin: 12/28/17 05:58 Dose: 75 mcg Meclizine HCl (Antivert) 25 mg PO TID PRN PRN Reason: Dizziness Memantine (Namenda) 10 mg PO Q12 [facility] Last Admin: 12/28/17 08:57 Dose: 10 mg Metoprolol Tartrate (Lopressor) 12.5 mg PO DAILY PRN PRN Reason: SBP >139 Last Admin: 12/28/17 08:54 Dose: 12.5 mg Potassium Chloride (Potassium Chloride Oral Soln) 20 meq PO DAILY [facility] Last Admin: 12/28/17 08:53 Dose: 20 meq Prednisolone Acetate (Pred Forte 1% Opht Susp) 1 drop OS QID [facility] Last Admin: 12/28/17 08:56 Dose: 1 drop Ramipril (Altace) 10 mg PO DAILY [facility] Last Admin: 12/28/17 08:55 Dose: 10 mg Risperidone (Risperdal Tab) 0.5 mg PO [facility] Last Admin: 12/27/17 21:33 Dose: 0.5 mg Sertraline HCl (Zoloft) 50 mg PO [facility] Last Admin: 12/27/17 21:32 Dose: 50 mg Tamsulosin HCl (Flomax) 0.4 mg PO DAILY [facility] Last Admin: 12/28/17 08:54 Dose: 0.4 mg Timolol Maleate (Timoptic 0.5% Ophth Soln) 1 drop OS Q12 [facility] Last Admin: 12/28/17 08:56 Dose: 1 applic Vancomycin HCl (Vancocin (Oral/Rectal Use)) 125 mg PO Q6 [facility] PRN Reason: Protocol Last Admin: 12/28/17 09:06 Dose: 125 mg - Labs Labs: 12/27/17 09:41 12/27/17 09:41 - Constitutional Appears: Non-toxic, Chronically Ill - Head Exam Head Exam: NORMOCEPHALIC - Eye Exam Eye Exam: PERRL - ENT Exam ENT Exam: Mucous Membranes Dry - Neck Exam Neck Exam: absent: Lymphadenopathy - Respiratory Exam Respiratory Exam: Decreased Breath Sounds - Cardiovascular Exam Cardiovascular Exam: REGULAR RHYTHM - GI/Abdominal Exam GI & Abdominal Exam: Distended, Soft - Rectal Exam Rectal Exam: Deferred - Exam Exam: NORMAL INSPECTION - Extremities Exam Extremities Exam: absent: Pedal Edema - Back Exam Back Exam: absent: CVA tenderness (L), CVA tenderness (R) - Neurological Exam Neurological Exam: Alert, Awake, Oriented x3 - Psychiatric Exam Psychiatric exam: Normal Mood - Skin Skin Exam: Dry Assessment and Plan (1) C. difficile colitis Status: Suspected (2) Hypovolemic shock Status: Acute (3) Sepsis Status: Acute (4) Syncope Status: Acute (5) Abdominal pain Status: Acute (6) Urinary tract infection Status: Acute (7) Infection due to ESBL-producing Escherichia coli Status: Acute - Assessment and Plan (Free Text) Assessment: cont rx as per Dr Mcginnis
[2017-12-28] MEDS: GlipiZIDE 5 mg SR Tab PO SCH (13:11)
--- NOTE | 2017-12-28 20:52 | PN ---
DATE: 12/28/2017 FOLLOWUP NOTE The patient is resting comfortably today with her Solis catheter. No complaints of pain. This case was discussed with the nursing staff and Dr. Mcginnis states the patient is ready for bladder training regarding her original admission pathology. We will discontinue the Solis catheter today, 12/28/2017, and give her a voiding trial and try to encourage the patient to void and check her residual urine. We will also follow her BUN and creatinine and GFR. Edd Resendiz MD MTDD
[2017-12-28] MEDS: Artificial Tears Opht Soln OU SCH (21:34)
[2017-12-29] MEDS: Meropenem 500 MG in Sodium Chloride 0.9% 100 ML IVPB SCH ×3 (00:56→16:04)
[2017-12-29] MEDS: Vancomycin 500 mg (Oral/Rectal USE) PO SCH ×3 (04:40→16:07)
[2017-12-29] MEDS ORDERED: Sterile Water 10 ML IV ONE (05:32)
[2017-12-29] MEDS: Levothyroxine 75 MCG TAB PO SCH (05:41)
[2017-12-29] MEDS: Insulin Lispro (humaLOG) 100 Units/ml Inj SC SCH ×3 (06:34→17:44)
[2017-12-29 08:01] VITALS: RESP 20
[2017-12-29] MEDS: GlipiZIDE 5 mg SR Tab PO SCH (08:50)
[2017-12-29] MEDS: Enoxaparin 40 mg Syringe SC SCH (08:51)
[2017-12-29] MEDS: Mineral Oil/White Petrolatum Ophth Oint OD SCH (08:51)
[2017-12-29] MEDS: PrednisoLONE 1% OPTH SUSP OS SCH ×3 (08:52→16:07)
[2017-12-29] MEDS: Potassium Chloride 20 mEq/15 ml LIQ UD PO SCH (08:52)
[2017-12-29] MEDS: Cholecalciferol 1,000 INTLU TAB PO SCH (08:53)
--- NOTE | 2017-12-29 11:17 | CP.PCM.PCO ---
Assessment/Plan - Assessment/Plan Assessment (Free Text): Pt will complete 7 day of antibiotics today as per Dr. Morton, patient can be discharged home today after afternoon dose of abx. Pt voiding, stable. Seen and cleared for d/c home by Dr. Resendiz and Dr. Mcginnis Pt's daughter at bedside, aware of plan.
[2017-12-29 11:34] LABS: HEMOGLOBIN 10.2 g/dL (12.0-16.0); MEAN CELL VOLUME 89.7 fl (81.0-99.0); MEAN CORPUSCULAR HEMOGLOBIN 30.1 pg (27.0-31.0); MEAN CORPUSCULAR HGB CONC 33.5 g/dL (33.0-37.0); RBC 3.39 Mil/uL (3.80-5.20); RED CELL DISTRIBUTION WIDTH 14.5 % (11.5-14.5); WHITE BLOOD COUNT 7.4 K/uL (4.8-10.8)
[2017-12-29 11:41] LABS: BLOOD UREA NITROGEN 24 mg/dl (7-17); CALCIUM 8.4 mg/dL (8.4-10.2); GFR AFRICAN-AMERICAN > 60; GFR NON-AFRICAN AMERICAN > 60
[2017-12-29 16:39] VITALS: BP 119/60; PULSE 63; TEMP 98; O2SAT 98
--- NOTE | 2017-12-30 09:39 | PQF ---
PROVIDER RESPONSE TEXT: Diabetes with hyperglycemia REVIEWER QUERY TEXT: Diabetic Associated Manifestations Please specify any manifestations associated / due to diabetes Such as: -- Diabetes with hyperglycemia -- Diabetes with renal manifestation -- Diabetes with neurologic manifestation -- Diabetes with ophthalmic manifestation -- Diabetes with peripheral circulatory manifestation -- Other, please specify -- No manifestations The patient's Clinical Indicators include: Patient with a history of DM presents with vomiting, diarrhea and brief syncopal episode is being matthew ated for C. DIfficile. WBC 27.6 L shift, Glucose running 130-303. Accuchecks monitored with insulin c overage. Query created by: Melanie Thomas on 12/19/2017 9:57 AM Electronically signed by: Morris Mcginnis MD 12/30/2017 9:37 AM
--- NOTE | 2018-01-15 13:45 | PQF ---
PROVIDER RESPONSE TEXT: Sepsis ruled in , POA 2nd Cdiff colitis, ESBL UTI REVIEWER QUERY TEXT: Conflicting Documentation Clarification Documentation of Hypovolemic Shock for the same clinical presentation appears in the record. Please clarify the diagnosis/diagnoses. Please also document if the condition is: -- Confirmed and current -- Confirmed, treated and resolved -- Ruled out -- Other, please specify The patient's Clinical Indicators include: Patient presents to the ER with episodes of non-bilious and non-bloody vomit and several episodes of watery diarrhea. Reports after vomiting, patient felt dizzy and passed out for a few seconds. WBC 27.6 with a L shift and 5% BANDS, Lactate 2.9 TEMP: 99, 97.9, 97.8, 97.7, 98.3 HR: 70, 69, 71, 70, 73, 75, 72 BP: 106/48, 101/50, 107/54, 118/52, 103/56, 119/65, 147/72, 168/71 R 19, 18, 15, 13 ER MD: Sepsis, Hypovolemic shock, c difficile colitis, syncope ID: C Diff colitis, hypovolemic shock, sepsis, syncope,uti, infection due to ESBL producing E Coli Treated with IVAB, IVF Query created by: Melanie Thomas on 01/02/2018 10:47 AM Electronically signed by: Morris Mcginnis MD 01/15/2018 1:42 PM
== END 2017-12-29 18:22 | disposition home health service (06) | DRG 871 ==
LOC: H.ER 08:58 → H.ERHOLD 11:55 → H.TEL 18:59 → H.MEDSURG1 12-18 17:05
PROVIDERS: ADMIT Family Medicine; ATTEND Family Medicine
DX: A41.9 Sepsis, unspecified organism (principal); R57.1 Hypovolemic shock; A04.72 Enterocolitis due to Clostridium difficile, not specified as recurrent; N39.0 Urinary tract infection, site not specified; I69.354 Hemiplegia and hemiparesis following cerebral infarction affecting left non-dominant side; E87.6 Hypokalemia; F02.80 Dementia in other diseases classified elsewhere, unspecified severity, without behavioral disturbance, psychotic disturbance, mood disturbance, and anxiety; B96.20 Unspecified Escherichia coli [E. coli] as the cause of diseases classified elsewhere; Z16.12 Extended spectrum beta lactamase (ESBL) resistance; G30.9 Alzheimer's disease, unspecified; E11.319 Type 2 diabetes mellitus with unspecified diabetic retinopathy without macular edema; I95.1 Orthostatic hypotension; R33.8 Other retention of urine; E11.65 Type 2 diabetes mellitus with hyperglycemia; I10 Essential (primary) hypertension; E03.9 Hypothyroidism, unspecified; E78.5 Hyperlipidemia, unspecified; H54.8 Legal blindness, as defined in USA; H40.9 Unspecified glaucoma; E78.00 Pure hypercholesterolemia, unspecified; F41.9 Anxiety disorder, unspecified; R31.9 Hematuria, unspecified; Z74.01 Bed confinement status; Z99.3 Dependence on wheelchair; Z87.01 Personal history of pneumonia (recurrent); Z87.440 Personal history of urinary (tract) infections; Z79.02 Long term (current) use of antithrombotics/antiplatelets; Z79.4 Long term (current) use of insulin; Z79.82 Long term (current) use of aspirin; Z88.6 Allergy status to analgesic agent; Z88.2 Allergy status to sulfonamides

== ENCOUNTER 2018-01-07 16:05 | Observation (INO) | payer MEDICARE ==
[2018-01-07 16:28] VITALS: BMI 27.4
[2018-01-07] MEDS ORDERED: Sodium Chloride 0.9% 1,000 ML IV ONE (16:30)
--- NOTE | 2018-01-07 16:32 | ED PDOC ---
HPI: Altered Mental Status Time Seen by Provider: 01/07/18 16:20 Chief Complaint (Provider): AMS History Per: Family History/Exam Limitations: Clinical Condition Onset Of Symptoms: <4.5 Hours Current Symptoms Are (Timing): Better Additional Complaint(s): 82 year old female, medical history of Alzheimer's disease and dementia, arrives to ED with family for AMS, last known well around 1100 earlier today. At baseline, family reports patient is normally conversive, bed-ridden, blind and has weakness of upper and lower extremities. Upon onset, family tried to talk to patient but patient "could not respond" and brought to ED when the aphasia persisted. Of note, patient was recently hospitalized for gastroenteritis and dehydration last month. PMD: Dr. Morris Mcginnis NIHSS Stroke Scale - Date/Time Evaluation Performed Date Performed: 01/07/18 Time Performed: 16:25 When Was NIHSS Performed: Baseline - How Severe is the Stroke Level of Consciousness: 2=Obtunded LOC to Questions: 2=Neither correct LOC to commands: 0=Obeys both correctly Best Gaze: 0=Normal Visual: 0=No visual loss (blind) Facial: 0=Normal Motor Arm - Left: 3=No effort against gravity (falls immediately) Motor Arm - Right: 3=No effort against gravity (falls immediately) Motor Leg - Left: 3=No effort against gravity (falls immediately) Motor Leg - Right: 3=No effort against gravity (falls immediately) Limb Ataxia: 2=Present both Sensory: 0=Normal Best Language: 2=Severe aphasia Dysarthia: 2=Severe, near unintelligible or worse Extinction & Inattention (Neglect): 0=Normal, no object Score: 22 Past Medical History Reviewed: Historical Data, Nursing Documentation, Vital Signs Vital Signs: Last Vital Signs Temp 97.6 F 01/07/18 16:10 Pulse 65 01/07/18 16:10 Resp 16 01/07/18 16:10 BP 155/73 H 01/07/18 16:10 Pulse Ox 98 01/07/18 16:10 - Medical History PMH: Alzheimer's Disease, Anemia, Anxiety, CHF, 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; L side weakness), Dementia, Depression, Diabetes, Diverticulitis (Diverticulosis), Fractures (rt wrist/elbow), Gastritis, HTN, Hypercholesterolemia, Hyperlipidemia, Hypothyroidism, Migraine, Pneumonia, TIA ( 2013) Denies: Arthritis, HIV, Chronic Kidney Disease - Surgical History Surgical History: Tonsillectomy (partial thyroidectomy) Denies: CABG - Family History Family History: States: Unknown Family Hx - Home Medications Home Medications: Ambulatory Orders Medication Instructions Recorded Acetaminophen/Butalbital/Caf 1 tab PO Q8H PRN 08/23/15 [Fioricet] Atorvastatin [Lipitor] 40 mg PO HS 08/23/15 Cholecalciferol [Vitamin D 1000 IU] 1,000 units PO DAILY 08/23/15 Clopidogrel [Plavix] 75 mg PO DAILY 08/23/15 Donepezil [Aricept] 10 mg PO HS 08/23/15 Latanoprost 0.005% Opht [Xalatan 1 drop LEFTEYE HS 08/23/15 Opht] Meclizine HCl [Antivert] 25 mg PO TID PRN 08/23/15 Memantine [Namenda] 10 mg PO Q12 08/23/15 Prednisolone Acetate [Pred Forte] 1 drop LEFTEYE QID 08/23/15 Sertraline [Zoloft] 50 mg PO HS 08/23/15 Metoprolol Tartrate [Lopressor] 12.5 mg PO DAILY PRN 10/02/16 Levothyroxine [Synthroid] 75 mcg PO DAILY@0630 tab 05/28/17 Brimonidine Tartrate/Timolol 1 drop LEFTEYE Q12 06/10/17 [Combigan 0.2%-0.5% Eye Drops] Insulin Aspart Prot/Insuln Asp 10 unit SC DIN 06/10/17 [Novolog Mix 70-30 Vial] Insulin Aspart Prot/Insuln Asp 40 unit SC BRK 06/10/17 [Novolog Mix 70-30 Vial] Ranitidine HCl [Zantac] 150 mg PO BID 06/10/17 cycloSPORINE [Restasis] 1 drop LEFTEYE Q12H 06/10/17 risperiDONE [RisperDAL Tab] 0.25 mg PO QAM 06/10/17 Aspirin [Ecotrin] 81 mg PO Q48H 12/16/17 Carboxymethylcellulose Sodium 1 drop RIGHTEYE HS 12/16/17 [Lubricant Eye Drops] Ramipril [Altace] 5 mg PO DAILY 12/16/17 Risperidone [Risperdal] 0.5 mg PO HS 12/16/17 Nystatin [Nystop Topical Powder] 1 applic TOP TID #1 bottle 12/29/17 Fluconazole [Diflucan] 100 mg PO HS 01/07/18 Tamsulosin [Flomax] 0.4 mg PO HS 01/07/18 - Allergies Allergies/Adverse Reactions: Allergies Allergy/AdvReac Type Severity Reaction Status Date / Time aspirin Allergy NAUSEA Verified 05/13/17 09:32 Sulfa (Sulfonamide Allergy RASH Verified 05/13/17 09:32 Antibiotics) Iodinated Contrast- Oral and AdvReac VOMITING Verified 05/13/17 09:32 IV Dye metformin AdvReac DIARRHEA Verified 05/13/17 09:32 Review of Systems Review Of Systems: ROS cannot be obtained secondary to pt's inabilty to answer questions. Physical Exam - Reviewed Nursing Documentation Reviewed: Yes Vital Signs Reviewed: Yes - Physical Exam Appears: Positive for: Non-toxic, In Acute Distress Head Exam: Positive for: ATRAUMATIC, NORMOCEPHALIC Skin: Positive for: Warm, Dry, Pallor Eye Exam: Positive for: Other (bilateral hazy appearance with film, consistent with blindness) ENT: Positive for: Pharynx Is (clear), Other (dry mucous membranes) Neck: Positive for: Painless ROM, Supple Cardiovascular/Chest: Positive for: Regular Rate, Rhythm. Negative for: Murmur Respiratory: Positive for: Normal Breath Sounds. Negative for: Accessory Muscle Use, Respiratory Distress Gastrointestinal/Abdominal: Positive for: Normal Exam, Soft. Negative for: Tenderness Back: Positive for: Other (large ecchymotic area to left hip without tenderness) Extremity: Positive for: Tenderness (localized with 1/5 strength to all extremities) Lymphatic: Negative for: Adenopathy Neurologic/Psych: Positive for: Oriented (x1), Mood/Affect (Lethargic and obtunded), Other (answers simple questions only. speech is slurred, almost unintelligible) - Laboratory Results Result Diagrams: 01/07/18 17:16 01/07/18 17:16 - ECG O2 Sat by Pulse Oximetry: 98 (RA) Pulse Ox Interpretation: Normal - Critical Care Total Time (In Min): 30 Documented Critical Care: Time excludes all time spent performint seperately billable procedures Medical Decision Making Medical Decision Making: Initial Impression: Aphasia Differential diagnosis includes but not limited to: TIA, CVA, dehydration, metabolic encephalopathy, electrolyte abnormality Upon evaluation code stroke called. Initial Plan: * Type and screen * VBG * CT head without contrast * CMP * Hemoglobin A1C * Lipid panel * Magnesium * Phosphorous * Troponin I * EKG * CBC * PTT * PT * CXR * NS 1,000ml IV per 1000mls/hr * Accucheck * UA Time: 1655 --CT head FINDINGS: HEMORRHAGE: No intracranial hemorrhage. BRAIN: No mass effect or edema. Cortical and cerebellar atrophy, periventricular small vessel disease. VENTRICLES: Unremarkable. No hydrocephalus. CALVARIUM: Unremarkable. PARANASAL SINUSES: Unremarkable as visualized. No significant inflammatory changes. MASTOID AIR CELLS: Unremarkable as visualized. No inflammatory changes. OTHER FINDINGS: None. IMPRESSION: No acute intracranial abnormalities. No significant findings to account for the clinical presentation. No significant interval change compared to the prior examination(s). Time: 1720 --CXR FINDINGS: LUNGS: No active pulmonary disease. PLEURA: No significant pleural effusion identified, no pneumothorax apparent. CARDIOVASCULAR: No radiographic findings to suggest acute or significant cardiovascular disease. OSSEOUS STRUCTURES: No significant abnormalities. VISUALIZED UPPER ABDOMEN: Normal. OTHER FINDINGS: None. IMPRESSION: No active disease. No significant interval change compared to the prior examination(s). Labs unremarkable. Time: 183 --Consult ordered for Dr. Murdock, neuro dehydration unit operator, to evaluate possible code stroke. 1999 While in ER pt becoming slightly more conversive, reporting feeling cold. No improvement in strength. BP labile. Scribe Attestation: Documented by Starla Juarez, acting as a scribe for Ashlie Swenson MD. Provider Scribe Attestation: All medical record entries made by the Scribe were at my direction and personally dictated by me. I have reviewed the chart and agree that the record accurately reflects my personal performance of the history, physical exam, medical decision making, and the department course for this patient. I have also personally directed, reviewed, and agree with the discharge instructions and disposition. Disposition - Clinical Impression Clinical Impression: Altered mental status Counseled Patient/Family Regarding: Studies Performed, Diagnosis - Disposition Disposition Time: 18:35 Condition: GUARDED - Pt Status Changed To: Hospital Disposition Of: Inpatient - Admit Certification Admit to Inpatient:: After my assessment, the patient will require hospitalization for at least two midnights. This is because of the severity of symptoms shown, intensity of services needed, and/or the medical risk in this patient being treated as an outpatient. - POA Present On Arrival: None Critical Care Time - Critical Care Note Total Time (in mins): 30 Documented critical care: time excludes all time spent performing seperately billable procedures.
--- NOTE | 2018-01-07 16:57 | CT ---
Date of service: 01/07/2018 PROCEDURE: CT HEAD WITHOUT CONTRAST. HISTORY: Altered mental status. COMPARISON: 12/16/2017. TECHNIQUE: Axial computed tomography images were obtained through the head/brain without intravenous contrast. Coronal and sagittal reconstructed images. Radiation dose: Total exam DLP = 773.11 mGy-cm. This CT exam was performed using one or more of the following dose reduction techniques: Automated exposure control, adjustment of the mA and/or kV according to patient size, and/or use of iterative reconstruction technique. FINDINGS: HEMORRHAGE: No intracranial hemorrhage. BRAIN: No mass effect or edema. Cortical and cerebellar atrophy, periventricular small vessel disease. VENTRICLES: Unremarkable. No hydrocephalus. CALVARIUM: Unremarkable. PARANASAL SINUSES: Unremarkable as visualized. No significant inflammatory changes. MASTOID AIR CELLS: Unremarkable as visualized. No inflammatory changes. OTHER FINDINGS: None. IMPRESSION: No acute intracranial abnormalities. No significant findings to account for the clinical presentation. No significant interval change compared to the prior examination(s). Code stroke protocol: Study completed 16:33 Radiologist notified 16:46 Results conveyed verbally at 16:53. Findings conveyed to Dr. Swenson attending physician in the emergency department. Interpretation finalized and available for review 16:55
[2018-01-07 17:19] LABS: VENOUS BLOOD GAS BASE EXCESS 4.2 mmol/L (0.0-2.0); VENOUS BLOOD GAS PCO2 44 mmHg (40-60); VENOUS BLOOD GAS PO2 43 mm/Hg (30-55); VENOUS BLOOD PH 7.43 (7.32-7.43)
[2018-01-07 17:22] LABS: BASO # 0.1 K/uL (0.0-0.2); BASO % 1.1 % (0.0-2.0); EOS # 0.3 K/uL (0.0-0.7); EOS % 4.1 % (0.0-4.0); HEMOGLOBIN 11.4 g/dL (12.0-16.0); LYMPH # 2.7 K/uL (1.0-4.3); MEAN CORPUSCULAR HEMOGLOBIN 29.6 pg (27.0-31.0); MEAN CORPUSCULAR HGB CONC 32.5 g/dL (33.0-37.0); MEAN PLATELET VOLUME 9.4 fl (7.2-11.7); MONO # 0.8 K/uL (0.0-0.8); MONO % 10.2 % (0.0-10.0); NEUT # 4.1 K/uL (1.8-7.0); NEUT % 50.6 % (50.0-75.0); NRBC % 0.1 % (0.0-0.0); RBC 3.84 Mil/uL (3.80-5.20); RED CELL DISTRIBUTION WIDTH 14.3 % (11.5-14.5); WHITE BLOOD COUNT 8.1 K/uL (4.8-10.8)
--- NOTE | 2018-01-07 17:33 | RAD ---
Date of service: 01/07/2018 HISTORY: Code Stroke COMPARISON: 12/16/2017. FINDINGS: LUNGS: No active pulmonary disease. PLEURA: No significant pleural effusion identified, no pneumothorax apparent. CARDIOVASCULAR: No radiographic findings to suggest acute or significant cardiovascular disease. OSSEOUS STRUCTURES: No significant abnormalities. VISUALIZED UPPER ABDOMEN: Normal. OTHER FINDINGS: None. IMPRESSION: No active disease. No significant interval change compared to the prior examination(s).
[2018-01-07 17:40] LABS: ALB/GLOB RATIO 0.9 (1.0-2.1); ALBUMIN 3.4 g/dL (3.5-5.0); ALT/SGPT 20 U/L (9-52); AST/SGOT 29 U/L (14-36); BLOOD UREA NITROGEN 17 mg/dl (7-17); CALCIUM 8.9 mg/dL (8.4-10.2); GFR AFRICAN-AMERICAN > 60; GFR NON-AFRICAN AMERICAN > 60; HDL CHOLESTEROL 31 MG/DL (30-70)
[2018-01-07 17:47] LABS: LDL CHOLESTEROL 80 mg/dL (0-129)
[2018-01-07 18:05] LABS: INR 1.1 (0.9-1.2); PARTIAL THROMBOPLASTIN TIME 24.4 Seconds (25.6-37.1); PROTHROMBIN TIME 11.9 Seconds (9.8-13.1)
[2018-01-08] MEDS ORDERED: Apap-Butalbital-Caffeine 325-50-40mg Tab PO PRN (00:46)
[2018-01-08] MEDS ORDERED: Patient's Own Med (Cyclosporine [Restasis] 1 DROP) LEFTEYE SCH (01:00)
--- NOTE | 2018-01-08 07:25 | CP.PCM.HP ---
History of Present Illness - History of Present Illness History of Present Illness: HPI: 82 YO female with PMHx of IDDM, HTN, hypothyroidsm, CVA and dementia presented to [facility] ED after becoming aphasic. Family noticed that the patient was not speaking to them, which is different from her baseline. Pt seen and examined this AM. Verbal and responds appropriately to questions. Denies chest pain, dyspnea, n/v/d/c, fever and chills. [employer] used for translation [id number] Family present by bedside this AM PMD: Madi Vera PMHx: IDDM type 2, HTN, hypothyroidism, CVA with b/l blindess, left side weakness, , diverticulitis, advanced dementia SurgHx: partial thyroidectomy, tonsillectomy FMHx: noncontributory SHx: denies tobacco/Etoh or drugs Allergies: aspirin, sulfanamide antibiotics, iodine contrast, metformin Present on Admission - Present on Admission Any Indicators Present on Admission: No Review of Systems - Constitutional Constitutional: absent: Chills, Fever - EENT Eyes: Other (baseline b/l blindness ) - Cardiovascular Cardiovascular: absent: Chest Pain, Palpitations - Respiratory Respiratory: absent: Cough, Dyspnea - Gastrointestinal Gastrointestinal: absent: Abdominal Pain - Genitourinary Genitourinary: absent: Dysuria Past Patient History - Infectious Disease Hx of Infectious Diseases: None - Tetanus Immunizations Tetanus Immunization: Unknown - Past Medical History & Family History Past Medical History?: Yes - Past Social History Smoking Status: Never Smoked Alcohol: None Drugs: Denies - CARDIAC Hx Congestive Heart Failure: Yes Hx Hypercholesterolemia: Yes Hx Hypertension: Yes - PULMONARY Hx Pneumonia: Yes - NEUROLOGICAL Hx Alzheimer's Disease: Yes Hx Dementia: Yes Hx Migraine: Yes Hx Transient Ischemic Attacks (TIA): Yes (2013) - HEENT Hx HEENT Problems: Yes - RENAL Hx Chronic Kidney Disease: No - ENDOCRINE/METABOLIC Hx Hypothyroidism: Yes - HEMATOLOGICAL/ONCOLOGICAL Hx Anemia: Yes Hx Human Immunodeficiency Virus (HIV): No - INTEGUMENTARY Hx Dermatological Problems: No - MUSCULOSKELETAL/RHEUMATOLOGICAL Hx Arthritis: No Hx Fractures: Yes (rt wrist/elbow) - GASTROINTESTINAL Hx Diverticulitis: Yes (Diverticulosis) Hx Gastritis: Yes - GENITOURINARY/GYNECOLOGICAL Hx Genitourinary Disorders: Yes - PSYCHIATRIC Hx Anxiety: Yes Hx Depression: Yes - SURGICAL HISTORY Hx Coronary Artery Bypass Graft: No Hx Tonsillectomy: Yes (partial thyroidectomy) - ANESTHESIA Hx Anesthesia: Yes Hx Anesthesia Reactions: Yes (HALLUCINATION, CONFUSION) Hx Malignant Hyperthermia: No Meds Allergies/Adverse Reactions: Allergies Allergy/AdvReac Type Severity Reaction Status Date / Time aspirin Allergy NAUSEA Verified 05/13/17 09:32 Sulfa (Sulfonamide Allergy RASH Verified 05/13/17 09:32 Antibiotics) Iodinated Contrast- Oral and AdvReac VOMITING Verified 05/13/17 09:32 IV Dye metformin AdvReac DIARRHEA Verified 05/13/17 09:32 Physical Exam - Constitutional Appears: No Acute Distress, Other (NC on ) - Head Exam Head Exam: ATRAUMATIC - Eye Exam Eye Exam: EOMI, Normal appearance - ENT Exam ENT Exam: Mucous Membranes Moist - Respiratory Exam Respiratory Exam: Clear to Auscultation Bilateral. absent: Wheezes - Cardiovascular Exam Cardiovascular Exam: REGULAR RHYTHM, +S1, +S2, Systolic Murmur - GI/Abdominal Exam GI & Abdominal Exam: Normal Bowel Sounds, Soft. absent: Tenderness - Extremities Exam Extremities exam: Positive for: normal inspection. Negative for: calf tenderness, pedal edema - Neurological Exam Neurological exam: Alert Additional comments: Oriented to person and place but not to time when asked about date and time pt states "I have not looked at a calender in years" Results - Vital Signs Recent Vital Signs: Last Vital Signs Temp 97.8 F 01/08/18 05:47 Pulse 75 01/08/18 05:47 Resp 16 01/08/18 05:47 BP 138/61 01/08/18 05:47 Pulse Ox 96 01/08/18 05:47 - Labs Result Diagrams: 01/07/18 17:16 01/07/18 17:16 Labs: Laboratory Results - last 24 hr 01/07/18 01/07/18 01/07/18 17:00 17:00 17:15 WBC RBC Hgb Hct MCV MCH MCHC RDW Plt Count MPV Neut % (Auto) Lymph % (Auto) [place] % (Auto) Eos % (Auto) Baso % (Auto) Neut # (Auto) Lymph # (Auto) [place] # (Auto) Eos # (Auto) Baso # (Auto) PT 11.9 INR 1.1 APTT 24.4 L pO2 43 VBG pH 7.43 VBG pCO2 44 VBG HCO3 27.7 VBG Total CO2 30.6 H VBG O2 Sat (Calc) 87.3 H VBG Base Excess 4.2 H VBG Potassium 3.4 L Sodium 137.0 Chloride 105.0 Glucose 154 H Lactate 0.9 FiO2 21.0 Potassium Carbon Dioxide Anion Gap BUN Creatinine Est GFR ( Amer) Est GFR (Non-Af Amer) Random Glucose Calcium Phosphorus Magnesium Total Bilirubin AST ALT Alkaline Phosphatase Troponin I Total Protein Albumin Globulin Albumin/Globulin Ratio Triglycerides Cholesterol LDL Cholesterol Direct HDL Cholesterol Venous Blood Potassium 3.4 L Blood Type A POSITIVE Antibody Screen Negative BBK History Checked Patient has bt 01/07/18 01/07/18 17:16 17:16 WBC 8.1 RBC 3.84 Hgb 11.4 L Hct 34.9 MCV 91.0 MCH 29.6 MCHC 32.5 L RDW 14.3 Plt Count 343 MPV 9.4 Neut % (Auto) 50.6 Lymph % (Auto) 34.0 [place] % (Auto) 10.2 H Eos % (Auto) 4.1 H Baso % (Auto) 1.1 Neut # (Auto) 4.1 Lymph # (Auto) 2.7 [place] # (Auto) 0.8 Eos # (Auto) 0.3 Baso # (Auto) 0.1 PT INR APTT pO2 VBG pH VBG pCO2 VBG HCO3 VBG Total CO2 VBG O2 Sat (Calc) VBG Base Excess VBG Potassium Sodium 141 Chloride 104 Glucose Lactate FiO2 Potassium 4.0 Carbon Dioxide 26 Anion Gap 15 BUN 17 Creatinine 0.8 Est GFR ( Amer) > 60 Est GFR (Non-Af Amer) > 60 Random Glucose 145 H Calcium 8.9 Phosphorus 4.2 Magnesium 2.0 Total Bilirubin 0.6 AST 29 ALT 20 Alkaline Phosphatase 63 Troponin I < 0.0120 Total Protein 7.1 Albumin 3.4 L Globulin 3.7 Albumin/Globulin Ratio 0.9 L Triglycerides 161 H Cholesterol 154 LDL Cholesterol Direct 80 HDL Cholesterol 31 Venous Blood Potassium Blood Type Antibody Screen BBK History Checked Assessment & Plan (1) Altered mental status Status: Acute (2) Hyperlipidemia Status: Chronic (3) Hypertension Status: Suspected (4) CVA (cerebral vascular accident) Status: Chronic (5) Dementia Status: Chronic (6) Insulin dependent type 2 diabetes mellitus Status: Chronic (7) Hypothyroidism Status: Chronic - Assessment and Plan (Free Text) Assessment: Assessment/Plan: 82 YO female with PMHx of IDDM, HTN, hypothyroidsm, CVA and dementia is admitted for AMS, aphasia. -Labs reviewed, VS stable -trop neg x 1 -Ct head no acute findings -CXR no acute disease -echo and EKG pending -plan as ordered -neurology on consult Pt seen and examined with Dr. Mcginnis.
--- NOTE | 2018-01-08 08:51 | CP.PCM.HP ---
Past Patient History - Infectious Disease Hx of Infectious Diseases: None - Tetanus Immunizations Tetanus Immunization: Unknown - Past Medical History & Family History Past Medical History?: Yes - Past Social History Smoking Status: Never Smoked - CARDIAC Hx Congestive Heart Failure: Yes Hx Hypercholesterolemia: Yes Hx Hypertension: Yes - PULMONARY Hx Pneumonia: Yes - NEUROLOGICAL Hx Alzheimer's Disease: Yes Hx Dementia: Yes Hx Migraine: Yes Hx Transient Ischemic Attacks (TIA): Yes (2013) - HEENT Hx HEENT Problems: Yes - RENAL Hx Chronic Kidney Disease: No - ENDOCRINE/METABOLIC Hx Hypothyroidism: Yes - HEMATOLOGICAL/ONCOLOGICAL Hx Anemia: Yes Hx Human Immunodeficiency Virus (HIV): No - INTEGUMENTARY Hx Dermatological Problems: No - MUSCULOSKELETAL/RHEUMATOLOGICAL Hx Arthritis: No Hx Fractures: Yes (rt wrist/elbow) - GASTROINTESTINAL Hx Diverticulitis: Yes (Diverticulosis) Hx Gastritis: Yes - GENITOURINARY/GYNECOLOGICAL Hx Genitourinary Disorders: Yes - PSYCHIATRIC Hx Anxiety: Yes Hx Depression: Yes - SURGICAL HISTORY Hx Coronary Artery Bypass Graft: No Hx Tonsillectomy: Yes (partial thyroidectomy) - ANESTHESIA Hx Anesthesia: Yes Hx Anesthesia Reactions: Yes (HALLUCINATION, CONFUSION) Hx Malignant Hyperthermia: No Meds Allergies/Adverse Reactions: Allergies Allergy/AdvReac Type Severity Reaction Status Date / Time aspirin Allergy NAUSEA Verified 05/13/17 09:32 Sulfa (Sulfonamide Allergy RASH Verified 05/13/17 09:32 Antibiotics) Iodinated Contrast- Oral and AdvReac VOMITING Verified 05/13/17 09:32 IV Dye metformin AdvReac DIARRHEA Verified 05/13/17 09:32 Results - Vital Signs Recent Vital Signs: Last Vital Signs Temp 97.9 F 01/08/18 08:00 Pulse 72 01/08/18 08:00 Resp 20 01/08/18 08:00 BP 151/76 H 01/08/18 08:00 Pulse Ox 95 01/08/18 08:00 - Labs Result Diagrams: 01/07/18 17:16 01/07/18 17:16 Labs: Laboratory Results - last 24 hr 01/07/18 01/07/18 01/07/18 17:00 17:00 17:15 WBC RBC Hgb Hct MCV MCH MCHC RDW Plt Count MPV Neut % (Auto) Lymph % (Auto) [place] % (Auto) Eos % (Auto) Baso % (Auto) Neut # (Auto) Lymph # (Auto) [place] # (Auto) Eos # (Auto) Baso # (Auto) PT 11.9 INR 1.1 APTT 24.4 L pO2 43 VBG pH 7.43 VBG pCO2 44 VBG HCO3 27.7 VBG Total CO2 30.6 H VBG O2 Sat (Calc) 87.3 H VBG Base Excess 4.2 H VBG Potassium 3.4 L Sodium 137.0 Chloride 105.0 Glucose 154 H Lactate 0.9 FiO2 21.0 Potassium Carbon Dioxide Anion Gap BUN Creatinine Est GFR ( Amer) Est GFR (Non-Af Amer) Random Glucose Calcium Phosphorus Magnesium Total Bilirubin AST ALT Alkaline Phosphatase Troponin I Total Protein Albumin Globulin Albumin/Globulin Ratio Triglycerides Cholesterol LDL Cholesterol Direct HDL Cholesterol Venous Blood Potassium 3.4 L Blood Type A POSITIVE Antibody Screen Negative BBK History Checked Patient has bt 01/07/18 01/07/18 17:16 17:16 WBC 8.1 RBC 3.84 Hgb 11.4 L Hct 34.9 MCV 91.0 MCH 29.6 MCHC 32.5 L RDW 14.3 Plt Count 343 MPV 9.4 Neut % (Auto) 50.6 Lymph % (Auto) 34.0 [place] % (Auto) 10.2 H Eos % (Auto) 4.1 H Baso % (Auto) 1.1 Neut # (Auto) 4.1 Lymph # (Auto) 2.7 [place] # (Auto) 0.8 Eos # (Auto) 0.3 Baso # (Auto) 0.1 PT INR APTT pO2 VBG pH VBG pCO2 VBG HCO3 VBG Total CO2 VBG O2 Sat (Calc) VBG Base Excess VBG Potassium Sodium 141 Chloride 104 Glucose Lactate FiO2 Potassium 4.0 Carbon Dioxide 26 Anion Gap 15 BUN 17 Creatinine 0.8 Est GFR ( Amer) > 60 Est GFR (Non-Af Amer) > 60 Random Glucose 145 H Calcium 8.9 Phosphorus 4.2 Magnesium 2.0 Total Bilirubin 0.6 AST 29 ALT 20 Alkaline Phosphatase 63 Troponin I < 0.0120 Total Protein 7.1 Albumin 3.4 L Globulin 3.7 Albumin/Globulin Ratio 0.9 L Triglycerides 161 H Cholesterol 154 LDL Cholesterol Direct 80 HDL Cholesterol 31 Venous Blood Potassium Blood Type Antibody Screen BBK History Checked
[2018-01-08] MEDS: Levothyroxine 75 MCG TAB PO SCH (08:58)
[2018-01-08] MEDS: PrednisoLONE 1% OPTH SUSP OD SCH ×4 (08:59→22:02)
[2018-01-08] MEDS: Cholecalciferol 1,000 INTLU TAB PO SCH (09:01)
[2018-01-08] MEDS: Brimonidine 0.2% 50 DROP/5 ML BOTTLE OS SCH ×2 (09:01→22:05)
--- NOTE | 2018-01-08 13:47 | CARD ---
APPROVED REPORT Date of service: 01/08/2018 EXAM: Two-dimensional and M-mode echocardiogram with Doppler and color Doppler. Other Information Quality : GoodRhythm : NSR INDICATION AMS 2D DIMENSIONS IVSd0.83 (0.7-1.1cm)LVDd4.15 (3.9-5.9cm) LVOT Diameter1.85 (1.8-2.4cm)PWd1.06 (0.7-1.1cm) IVSs1.00 (0.8-1.2cm)LVDs3.43 (2.5-4.0cm) FS (%) 17.3 %PWs1.20 (0.8-1.2cm) M-Mode DIMENSIONS Left Atrium (MM)3.26 (2.5-4.0cm)IVSd1.50 (0.7-1.1cm) Aortic Root3.03 (2.2-3.7cm)LVDd4.62 (4.0-5.6cm) Aortic Cusp Exc.1.47 (1.5-2.0cm)PWd1.65 (0.7-1.1cm) IVSs1.94 cmFS (%) 43 % LVDs2.62 (2.0-3.8cm)PWs1.74 cm Aortic Valve AoV Peak Jxsqauln989.7cm/sAoV VTI35.0cmAO Peak GR.15mmHg LVOT Peak Gobevipw48.4cm/sLVOT VTI16.54cmAO Mean GR.8mmHg JUSTA (VMAX)0.04oi2LGO (VTI)0.71cm2 Mitral Valve MV E Qtehuckc42.6cm/sMV DECEL [id number] A Bnbssxdg073.2cm/s MV UMZ97okR/A ratio0.5MVA (PHT)2.26cm2 TDI Lateral E' Peak V4.73cm/sMedial E' Peak V2.61cm/sE/Lateral E'15.8 E/Medial E'28.6 Tricuspid Valve TR Peak Pgcznrgt818em/sRAP [id number] Peak Gr.11mmHg [id number] LEFT VENTRICLE The left ventricle is normal size. There is moderate concentric left ventricular hypertrophy. The left ventricular function is normal. The left ventricular ejection fraction is within the normal range. LVEF 65% There is normal LV segmental wall motion. The left ventricular diastolic function is normal. No left ventricle thrombus noted on this study. There is no ventricular septal defect visualized. There is no left ventricular aneurysm. There is no mass noted in the left ventricle. RIGHT VENTRICLE The right ventricle is normal size. There is normal right ventricular wall thickness. The right ventricular systolic function is normal. ATRIA The left atrium size is normal. The right atrium size is normal. The interatrial septum is intact with no evidence for an atrial septal defect. AORTIC VALVE The aortic valve is normal in structure. No aortic regurgitation is present. There is no aortic valvular stenosis. There is no aortic valvular vegetation. MITRAL VALVE The mitral valve is normal in structure. There is no evidence of mitral valve prolapse. There is no mitral valve stenosis. Mitral regurgitation is mild. TRICUSPID VALVE The tricuspid valve is normal in structure. There is no tricuspid valve regurgitation noted. There is no tricuspid valve prolapse or vegetation. There is no tricuspid valve stenosis. PULMONIC VALVE The pulmonary valve is normal in structure. There is no pulmonic valvular regurgitation. There is no pulmonic valvular stenosis. GREAT VESSELS The aortic root is normal in size. The IVC is normal in size and collapses >50% with inspiration. PERICARDIAL EFFUSION The pericardium appears normal. There is no pleural effusion. <Conclusion> The left ventricle is normal size. There is moderate concentric left ventricular hypertrophy. The left ventricular function is normal. The left ventricular ejection fraction is within the normal range. LVEF 65% Mitral regurgitation is mild.
--- NOTE | 2018-01-08 13:58 | CP.PCM.CON ---
History of Present Illness - History of Present Illness History of Present Illness: Neurology Consultation Note: Mrs. Chamberlain is an 82-year-old woman with a past medical history of DM, HTN, hypothyroidsm, previous stroke and dementia presented to [facility] ED after her family noticed that she was not very verbal. She was thought to be aphasic yesterday, but today, she is back to her baseline with her speech. She was admitted for a possible TIA versus toxic-metabolic encephalopathy. Neurology was consulted to assist with the management and care. Review of Systems - Review of Systems All systems: reviewed and no additional remarkable complaints except Past Patient History - Infectious Disease Hx of Infectious Diseases: None - Tetanus Immunizations Tetanus Immunization: Unknown - Past Medical History & Family History Past Medical History?: Yes - Past Social History Smoking Status: Never Smoked Alcohol: None Drugs: Denies - CARDIAC Hx Congestive Heart Failure: Yes Hx Hypercholesterolemia: Yes Hx Hypertension: Yes - PULMONARY Hx Pneumonia: Yes - NEUROLOGICAL Hx Alzheimer's Disease: Yes Hx Dementia: Yes Hx Migraine: Yes Hx Transient Ischemic Attacks (TIA): Yes (2013) - HEENT Hx HEENT Problems: Yes - RENAL Hx Chronic Kidney Disease: No - ENDOCRINE/METABOLIC Hx Hypothyroidism: Yes - HEMATOLOGICAL/ONCOLOGICAL Hx Anemia: Yes Hx Human Immunodeficiency Virus (HIV): No - INTEGUMENTARY Hx Dermatological Problems: No - MUSCULOSKELETAL/RHEUMATOLOGICAL Hx Arthritis: No Hx Fractures: Yes (rt wrist/elbow) - GASTROINTESTINAL Hx Diverticulitis: Yes (Diverticulosis) Hx Gastritis: Yes - GENITOURINARY/GYNECOLOGICAL Hx Genitourinary Disorders: Yes - PSYCHIATRIC Hx Anxiety: Yes Hx Depression: Yes - SURGICAL HISTORY Hx Coronary Artery Bypass Graft: No Hx Tonsillectomy: Yes (partial thyroidectomy) - ANESTHESIA Hx Anesthesia: Yes Hx Anesthesia Reactions: Yes (HALLUCINATION, CONFUSION) Hx Malignant Hyperthermia: No Meds Allergies/Adverse Reactions: Allergies Allergy/AdvReac Type Severity Reaction Status Date / Time aspirin Allergy NAUSEA Verified 05/13/17 09:32 Sulfa (Sulfonamide Allergy RASH Verified 05/13/17 09:32 Antibiotics) Iodinated Contrast- Oral and AdvReac VOMITING Verified 05/13/17 09:32 IV Dye metformin AdvReac DIARRHEA Verified 05/13/17 09:32 - Medications Medications: Current Medications Acetaminophen/Butalbital/Caffeine (Fioricet) 1 tab PO Q8H PRN PRN Reason: Migraine headache Artificial Tears (Artificial Tears) 1 drop OD HS [facility] Aspirin (Ecotrin) 81 mg PO Q48H [facility] Last Admin: 01/08/18 08:59 Dose: 81 mg Atorvastatin Calcium (Lipitor) 40 mg PO HS [facility] Brimonidine Tartrate (Alphagan 0.2% Opht) 1 drop OS Q12 [facility] Last Admin: 01/08/18 09:01 Dose: 1 drop Cholecalciferol (Vitamin D) 1,000 intlu PO DAILY [facility] Last Admin: 01/08/18 09:01 Dose: 1,000 intlu Clopidogrel Bisulfate (Plavix) 75 mg PO DAILY [facility] Last Admin: 01/08/18 08:59 Dose: 75 mg Donepezil HCl (Aricept) 10 mg PO HS [facility] Famotidine (Pepcid) 20 mg PO BID [facility] Last Admin: 01/08/18 08:57 Dose: 20 mg Home Med (Cyclosporine [Restasis]) 1 drop LEFTEYE Q12H [facility] Hydralazine HCl (Apresoline) 10 mg IV Q8 [facility] Last Admin: 01/08/18 09:07 Dose: Not Given Latanoprost (Xalatan Opht) 1 drop OD HS [facility] Levothyroxine Sodium (Synthroid) 75 mcg PO DAILY@0630 [facility] Last Admin: 01/08/18 08:58 Dose: 75 mcg Meclizine HCl (Antivert) 25 mg PO TID PRN PRN Reason: Dizziness Memantine (Namenda) 10 mg PO Q12 [facility] Last Admin: 01/08/18 08:59 Dose: 10 mg Metoprolol Tartrate (Lopressor) 12.5 mg PO DAILY [facility] Nystatin (Nystop Topical Powder) 1 applic TOP TID [facility] Last Admin: 01/08/18 11:59 Dose: 1 applic Pantoprazole Sodium (Protonix Inj) 40 mg IVP DAILY [facility] Last Admin: 01/08/18 09:00 Dose: 40 mg Prednisolone Acetate (Pred Forte 1% Opht Susp) 1 drop OD QID [facility] Last Admin: 01/08/18 12:00 Dose: 1 drop Ramipril (Altace) 5 mg PO DAILY [facility] Last Admin: 01/08/18 08:59 Dose: 5 mg Risperidone (Risperdal Tab) 0.5 mg PO HS [facility] Risperidone (Risperdal Tab) 0.25 mg PO QAM [facility] Last Admin: 01/08/18 09:00 Dose: 0.25 mg Sertraline HCl (Zoloft) 50 mg PO HS [facility] Tamsulosin HCl (Flomax) 0.4 mg PO HS [facility] Timolol Maleate (Timoptic 0.5% Ophth Soln) 1 drop OS Q12 [facility] Last Admin: 01/08/18 08:58 Dose: 1 drop Physical Exam - Neurological Exam Neurological exam: Abnormal Gait, Alert, Altered, CN II-XII Intact, Reflexes Normal Additional comments: Blind. Confused/demented as baseline, but understands she is in the hospital and follows commands appropriately. She moves all extremities and has a baseline tremor with intention. Results - Vital Signs Recent Vital Signs: Last Vital Signs Temp 96.9 F L 01/08/18 12:00 Pulse 69 01/08/18 12:00 Resp 18 01/08/18 12:00 BP 149/81 01/08/18 12:00 Pulse Ox 97 01/08/18 12:00 - Labs Result Diagrams: 01/07/18 17:16 01/07/18 17:16 Labs: Laboratory Results - last 24 hr 01/07/18 01/07/18 01/07/18 16:08 16:28 17:00 WBC RBC Hgb Hct MCV MCH MCHC RDW Plt Count MPV Neut % (Auto) Lymph % (Auto) [place] % (Auto) Eos % (Auto) Baso % (Auto) Neut # (Auto) Lymph # (Auto) [place] # (Auto) Eos # (Auto) Baso # (Auto) PT 11.9 INR 1.1 APTT 24.4 L pO2 VBG pH VBG pCO2 VBG HCO3 VBG Total CO2 VBG O2 Sat (Calc) VBG Base Excess VBG Potassium Sodium Chloride Glucose Lactate FiO2 Potassium Carbon Dioxide Anion Gap BUN Creatinine Est GFR ( Amer) Est GFR (Non-Af Amer) POC Glucose (mg/dL) 143 H 137 H Random Glucose Calcium Phosphorus Magnesium Total Bilirubin AST ALT Alkaline Phosphatase Troponin I Total Protein Albumin Globulin Albumin/Globulin Ratio Triglycerides Cholesterol LDL Cholesterol Direct HDL Cholesterol Venous Blood Potassium Blood Type Antibody Screen BBK History Checked 01/07/18 01/07/18 01/07/18 17:00 17:15 17:16 WBC 8.1 RBC 3.84 Hgb 11.4 L Hct 34.9 MCV 91.0 MCH 29.6 MCHC 32.5 L RDW 14.3 Plt Count 343 MPV 9.4 Neut % (Auto) 50.6 Lymph % (Auto) 34.0 Conway % (Auto) 10.2 H Eos % (Auto) 4.1 H Baso % (Auto) 1.1 Neut # (Auto) 4.1 Lymph # (Auto) 2.7 [place] # (Auto) 0.8 Eos # (Auto) 0.3 Baso # (Auto) 0.1 PT INR APTT pO2 43 VBG pH 7.43 VBG pCO2 44 VBG HCO3 27.7 VBG Total CO2 30.6 H VBG O2 Sat (Calc) 87.3 H VBG Base Excess 4.2 H VBG Potassium 3.4 L Sodium 137.0 Chloride 105.0 Glucose 154 H Lactate 0.9 FiO2 21.0 Potassium Carbon Dioxide Anion Gap BUN Creatinine Est GFR ( Amer) Est GFR (Non-Af Amer) POC Glucose (mg/dL) Random Glucose Calcium Phosphorus Magnesium Total Bilirubin AST ALT Alkaline Phosphatase Troponin I Total Protein Albumin Globulin Albumin/Globulin Ratio Triglycerides Cholesterol LDL Cholesterol Direct HDL Cholesterol Venous Blood Potassium 3.4 L Blood Type A POSITIVE Antibody Screen Negative BBK History Checked Patient has bt 01/07/18 01/08/18 01/08/18 17:16 05:50 11:21 WBC RBC Hgb Hct MCV MCH MCHC RDW Plt Count MPV Neut % (Auto) Lymph % (Auto) [place] % (Auto) Eos % (Auto) Baso % (Auto) Neut # (Auto) Lymph # (Auto) [place] # (Auto) Eos # (Auto) Baso # (Auto) PT INR APTT pO2 VBG pH VBG pCO2 VBG HCO3 VBG Total CO2 VBG O2 Sat (Calc) VBG Base Excess VBG Potassium Sodium 141 Chloride 104 Glucose Lactate FiO2 Potassium 4.0 Carbon Dioxide 26 Anion Gap 15 BUN 17 Creatinine 0.8 Est GFR ( Amer) > 60 Est GFR (Non-Af Amer) > 60 POC Glucose (mg/dL) 151 H Random Glucose 145 H Calcium 8.9 Phosphorus 4.2 Magnesium 2.0 Total Bilirubin 0.6 AST 29 ALT 20 Alkaline Phosphatase 63 Troponin I < 0.0120 < 0.0120 Total Protein 7.1 Albumin 3.4 L Globulin 3.7 Albumin/Globulin Ratio 0.9 L Triglycerides 161 H Cholesterol 154 LDL Cholesterol Direct 80 HDL Cholesterol 31 Venous Blood Potassium Blood Type Antibody Screen BBK History Checked 01/08/18 11:33 WBC RBC Hgb Hct MCV MCH MCHC RDW Plt Count MPV Neut % (Auto) Lymph % (Auto) [place] % (Auto) Eos % (Auto) Baso % (Auto) Neut # (Auto) Lymph # (Auto) [place] # (Auto) Eos # (Auto) Baso # (Auto) PT INR APTT pO2 VBG pH VBG pCO2 VBG HCO3 VBG Total CO2 VBG O2 Sat (Calc) VBG Base Excess VBG Potassium Sodium Chloride Glucose Lactate FiO2 Potassium Carbon Dioxide Anion Gap BUN Creatinine Est GFR ( Amer) Est GFR (Non-Af Amer) POC Glucose (mg/dL) 229 H Random Glucose Calcium Phosphorus Magnesium Total Bilirubin AST ALT Alkaline Phosphatase Troponin I Total Protein Albumin Globulin Albumin/Globulin Ratio Triglycerides Cholesterol LDL Cholesterol Direct HDL Cholesterol Venous Blood Potassium Blood Type Antibody Screen BBK History Checked Assessment & Plan (1) Altered mental status Assessment and Plan: The patient may have had a transient ischemic attack, or could have an occult infection (UA pending). I recommend the followin. Telemetry 2. MRI of the brain without contrast 3. Echocardiogram 4. Check HbA1c, B12, urinalysis, vitamin D level 5. PT/OT eval 6. FLuids with NS at 70 mL/hr 7. Plavix 75 mg daily 8. Continue dementia medications Thank you. Status: Acute Priority: High
--- NOTE | 2018-01-08 15:09 | CARD ---
APPROVED REPORT Date of service: 01/07/2018 EKG Measurement Heart [id number] <Conclusion> Normal sinus rhythm Low voltage QRS Cannot rule out Anterior infarct, age undetermined Abnormal ECG
[2018-01-08] MEDS: Insulin Lispro (humaLOG) 100 Units/ml Inj SC SCH ×2 (16:37→22:29)
[2018-01-08] MEDS ORDERED: Latanoprost 0.005% Opht SOUTION OD SCH (22:00)
[2018-01-08] MEDS ORDERED: Artificial Tears Opht Soln OD SCH (22:00)
[2018-01-09] MEDS: Levothyroxine 75 MCG TAB PO SCH (06:26)
[2018-01-09 09:06] LABS: RENAL EPITHELIAL 2 /hpf (0-3); SQUAMOUS EPITHIAL 13 /hpf (0-5); URINE AMORPHOUS SEDIMENT RARE /ul (<OCC); URINE BACTERIA OCC (<OCC); URINE BILIRUBIN NEGATIVE (NEGATIVE); URINE BLOOD SMALL (NEGATIVE); URINE CLARITY TURBID (Clear); URINE COLOR YELLOW (YELLOW); URINE GLUCOSE (UA) 150 mg/dL (Normal); URINE LEUKOCYTE ESTERASE LARGE Leu/uL (Negative); URINE PROTEIN 100 mg/dL (NEGATIVE); URINE UROBILINOGEN 0.2-1.0 mg/dL (0.2-1.0); WBC CLUMPS FEW /hpf
[2018-01-09] MEDS: Brimonidine 0.2% 50 DROP/5 ML BOTTLE OS SCH (09:14)
[2018-01-09] MEDS: PrednisoLONE 1% OPTH SUSP OD SCH ×3 (09:16→17:30)
[2018-01-09] MEDS: Insulin Lispro (humaLOG) 100 Units/ml Inj SC SCH ×3 (09:18→17:29)
[2018-01-09] MEDS: Cholecalciferol 1,000 INTLU TAB PO SCH (09:22)
--- NOTE | 2018-01-09 09:38 | CP.PCM.PN ---
Subjective - Date & Time of Evaluation Date of Evaluation: 01/09/18 Time of Evaluation: 09:36 - Subjective Subjective: Ms. Chamberlain was seen and examined at the bedside. She is awake, alert, recognize her friend, denies any headache, dizziness, lightheadedness, nausea, or vomiting. She is tolerating PO intake with assistance, no s/s aspiration. She is able to follow simple commands. There was no untoward events overnight. Objective - Vital Signs/Intake and Output Vital Signs (last 24 hours): Temp Pulse Resp BP Pulse Ox 97.9 F 69 20 147/71 95 01/09/18 08:00 01/09/18 09:17 01/09/18 08:00 01/09/18 09:20 01/09/18 08:00 - Medications Medications: Current Medications Acetaminophen/Butalbital/Caffeine (Fioricet) 1 tab PO Q8H PRN PRN Reason: Migraine headache Artificial Tears (Artificial Tears) 1 drop OD HS [facility] Last Admin: 01/08/18 23:00 Dose: 1 drop Aspirin (Ecotrin) 81 mg PO Q48H [facility] Last Admin: 01/08/18 08:59 Dose: 81 mg Atorvastatin Calcium (Lipitor) 40 mg PO HS [facility] Last Admin: 01/08/18 22:03 Dose: 40 mg Brimonidine Tartrate (Alphagan 0.2% Opht) 1 drop OS Q12 [facility] Last Admin: 01/09/18 09:14 Dose: 1 drop Cholecalciferol (Vitamin D) 1,000 intlu PO DAILY [facility] Last Admin: 01/09/18 09:22 Dose: 1,000 intlu Clopidogrel Bisulfate (Plavix) 75 mg PO DAILY [facility] Last Admin: 01/09/18 09:16 Dose: 75 mg Donepezil HCl (Aricept) 10 mg PO HS [facility] Last Admin: 01/08/18 22:04 Dose: 10 mg Famotidine (Pepcid) 20 mg PO BID [facility] Last Admin: 01/09/18 09:14 Dose: 20 mg Home Med (Cyclosporine [Restasis]) 1 drop LEFTEYE Q12H [facility] Hydralazine HCl (Apresoline) 10 mg IV Q8 [facility] Last Admin: 01/09/18 09:17 Dose: 10 mg Insulin Human Lispro (Humalog) 0 units SC ACHS [facility] PRN Reason: Protocol Last Admin: 01/09/18 09:18 Dose: 3 units Latanoprost (Xalatan Opht) 1 drop OD HS [facility] Last Admin: 01/08/18 22:05 Dose: 1 drop Levothyroxine Sodium (Synthroid) 75 mcg PO DAILY@0630 [facility] Last Admin: 01/09/18 06:26 Dose: 75 mcg Meclizine HCl (Antivert) 25 mg PO TID PRN PRN Reason: Dizziness Memantine (Namenda) 10 mg PO Q12 [facility] Last Admin: 01/09/18 09:20 Dose: 10 mg Metoprolol Tartrate (Lopressor) 12.5 mg PO DAILY [facility] Last Admin: 01/09/18 09:15 Dose: 12.5 mg Nystatin (Nystop Topical Powder) 1 applic TOP TID [facility] Last Admin: 01/09/18 09:14 Dose: 1 applic Pantoprazole Sodium (Protonix Inj) 40 mg IVP DAILY [facility] Last Admin: 01/09/18 09:16 Dose: 40 mg Prednisolone Acetate (Pred Forte 1% Opht Susp) 1 drop OD QID [facility] Last Admin: 01/09/18 09:16 Dose: 1 drop Ramipril (Altace) 5 mg PO DAILY [facility] Last Admin: 01/09/18 09:20 Dose: 5 mg Risperidone (Risperdal Tab) 0.5 mg PO HS [facility] Last Admin: 01/08/18 22:04 Dose: 0.5 mg Risperidone (Risperdal Tab) 0.25 mg PO QAM [facility] Last Admin: 01/09/18 09:19 Dose: 0.25 mg Sertraline HCl (Zoloft) 50 mg PO HS [facility] Last Admin: 01/08/18 22:05 Dose: 50 mg Tamsulosin HCl (Flomax) 0.4 mg PO HS [facility] Last Admin: 01/08/18 22:05 Dose: 0.4 mg Timolol Maleate (Timoptic 0.5% Ophth Soln) 1 drop OS Q12 [facility] Last Admin: 01/09/18 09:21 Dose: 1 drop - Labs Labs: 01/07/18 17:16 01/07/18 17:16 PT 11.9 Seconds (9.8-13.1) 01/07/18 17:00 INR 1.1 (0.9-1.2) 01/07/18 17:00 APTT 24.4 Seconds (25.6-37.1) L 01/07/18 17:00 - Constitutional Appears: No Acute Distress - Head Exam Head Exam: NORMAL INSPECTION - Neurological Exam Neurological Exam: Alert, Awake Neuro motor strength exam: Left Upper Extremity: 4, Right Upper Extremity: 4, Left Lower Extremity: 3, Right Lower Extremity: 3 Additional comments: alert, awake, follows simple commands, sensation is intact. Assessment and Plan (1) Altered mental status Assessment & Plan: Case discussed with Dr. Murdock, continue all current medical regimen. Pending MRI of the brain. Recommend to treat any electrolyte abnormalities, treat any underlying infection, hydration. Status: Acute
--- NOTE | 2018-01-09 11:14 | CP.PCM.DIS ---
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 (7) Hypothyroidism Status: Chronic Hospital Course - Lab Results Lab Results: Most Recent Lab Values WBC 8.1 K/uL (4.8-10.8) 01/07/18 17:16 RBC 3.84 Mil/uL (3.80-5.20) 01/07/18 17:16 Hgb 11.4 g/dL (12.0-16.0) L 01/07/18 17:16 Hct 34.9 % (34.0-47.0) 01/07/18 17:16 MCV 91.0 fl (81.0-99.0) 01/07/18 17:16 MCH 29.6 pg (27.0-31.0) 01/07/18 17:16 MCHC 32.5 g/dL (33.0-37.0) L 01/07/18 17:16 RDW 14.3 % (11.5-14.5) 01/07/18 17:16 Plt Count 343 K/uL (130-400) 01/07/18 17:16 MPV 9.4 fl (7.2-11.7) 01/07/18 17:16 Neut % (Auto) 50.6 % (50.0-75.0) 01/07/18 17:16 Lymph % (Auto) 34.0 % (20.0-40.0) 01/07/18 17:16 [place] % (Auto) 10.2 % (0.0-10.0) H 01/07/18 17:16 Eos % (Auto) 4.1 % (0.0-4.0) H 01/07/18 17:16 Baso % (Auto) 1.1 % (0.0-2.0) 01/07/18 17:16 Neut # (Auto) 4.1 K/uL (1.8-7.0) 01/07/18 17:16 Lymph # (Auto) 2.7 K/uL (1.0-4.3) 01/07/18 17:16 [place] # (Auto) 0.8 K/uL (0.0-0.8) 01/07/18 17:16 Eos # (Auto) 0.3 K/uL (0.0-0.7) 01/07/18 17:16 Baso # (Auto) 0.1 K/uL (0.0-0.2) 01/07/18 17:16 PT 11.9 Seconds (9.8-13.1) 01/07/18 17:00 INR 1.1 (0.9-1.2) 01/07/18 17:00 APTT 24.4 Seconds (25.6-37.1) L 01/07/18 17:00 pO2 43 mm/Hg (30-55) 01/07/18 17:15 VBG pH 7.43 (7.32-7.43) 01/07/18 17:15 VBG pCO2 44 mmHg (40-60) 01/07/18 17:15 VBG HCO3 27.7 mmol/L 01/07/18 17:15 VBG Total CO2 30.6 mmol/L (22-28) H 01/07/18 17:15 VBG O2 Sat (Calc) 87.3 % (40-65) H 01/07/18 17:15 VBG Base Excess 4.2 mmol/L (0.0-2.0) H 01/07/18 17:15 VBG Potassium 3.4 mmol/L (3.6-5.2) L 01/07/18 17:15 Sodium 137.0 mmol/L (132-148) 01/07/18 17:15 Chloride 105.0 mmol/L (98-107) 01/07/18 17:15 Glucose 154 mg/dL (65-105) H 01/07/18 17:15 Lactate 0.9 mmol/L (0.7-2.1) 01/07/18 17:15 FiO2 21.0 % 01/07/18 17:15 Sodium 141 mmol/l (132-148) 01/07/18 17:16 Potassium 4.0 MMOL/L (3.6-5.0) 01/07/18 17:16 Chloride 104 mmol/L (98-107) 01/07/18 17:16 Carbon Dioxide 26 mmol/L (22-30) 01/07/18 17:16 Anion Gap 15 (10-20) 01/07/18 17:16 BUN 17 mg/dl (7-17) 01/07/18 17:16 Creatinine 0.8 mg/dl (0.7-1.2) 01/07/18 17:16 Est GFR ( Amer) > 60 01/07/18 17:16 Est GFR (Non-Af Amer) > 60 01/07/18 17:16 POC Glucose (mg/dL) 334 mg/dL (65-110) H 01/09/18 10:59 Random Glucose 145 mg/dL (65-105) H 01/07/18 17:16 Hemoglobin A1c 9.6 % (4.2-6.5) H 01/07/18 17:16 Calcium 8.9 mg/dL (8.4-10.2) 01/07/18 17:16 Phosphorus 4.2 mg/dl (2.5-4.5) 01/07/18 17:16 Magnesium 2.0 MG/DL (1.6-2.3) 01/07/18 17:16 Total Bilirubin 0.6 mg/dl (0.2-1.3) 01/07/18 17:16 AST 29 U/L (14-36) 01/07/18 17:16 ALT 20 U/L (9-52) 01/07/18 17:16 Alkaline Phosphatase 63 U/L (38-126) 01/07/18 17:16 Troponin I < 0.0120 ng/mL (0.00-0.120) 01/08/18 11:21 Total Protein 7.1 G/DL (6.3-8.2) 01/07/18 17:16 Albumin 3.4 g/dL (3.5-5.0) L 01/07/18 17:16 Globulin 3.7 gm/dL (2.2-3.9) 01/07/18 17:16 Albumin/Globulin Ratio 0.9 (1.0-2.1) L 01/07/18 17:16 Triglycerides 161 mg/DL (0-149) H 01/07/18 17:16 Cholesterol 154 mg/dL (0-199) 01/07/18 17:16 LDL Cholesterol Direct 80 mg/dL (0-129) 01/07/18 17:16 HDL Cholesterol 31 MG/DL (30-70) 01/07/18 17:16 Vitamin B12 386 pg/mL (239-931) 01/09/18 09:55 Venous Blood Potassium 3.4 mmol/L (3.6-5.2) L 01/07/18 17:15 Urine Color Yellow (YELLOW) 01/08/18 08:49 Urine Clarity Turbid (Clear) 01/08/18 08:49 Urine pH 5.0 (5.0-8.0) 01/08/18 08:49 Ur Specific [place] 1.015 (1.003-1.030) 01/08/18 08:49 Urine Protein 100 mg/dL (NEGATIVE) 01/08/18 08:49 Urine Glucose (UA) 150 mg/dL (Normal) 01/08/18 08:49 Urine Ketones Negative mg/dL (NEGATIVE) 01/08/18 08:49 Urine Blood Small (NEGATIVE) 01/08/18 08:49 Urine Nitrate Negative (NEGATIVE) 01/08/18 08:49 Urine Bilirubin Negative (NEGATIVE) 01/08/18 08:49 Urine Urobilinogen 0.2-1.0 mg/dL (0.2-1.0) 01/08/18 08:49 Ur Leukocyte Esterase Large Ajay/uL (Negative) 01/08/18 08:49 Urine RBC (Auto) 33 /hpf (0-3) H 01/08/18 08:49 Urine WBC Clumps (Auto) Few /hpf (NONE) H 01/08/18 08:49 Urine Microscopic WBC 437 /hpf (0-5) H 01/08/18 08:49 Ur Squamous Epith Cells 13 /hpf (0-5) H 01/08/18 08:49 Ur Renal Epithelial Cell 2 /hpf (0-3) 01/08/18 08:49 Amorphous Sediment Rare /ul (<OCC) H 01/08/18 08:49 Urine Bacteria Occ (<OCC) H 01/08/18 08:49 Blood Type A POSITIVE 01/07/18 17:00 Antibody Screen Negative 01/07/18 17:00 BBK History Checked Patient has bt 01/07/18 17:00 - Hospital Course Hospital Course: 82 YO female with PMHx of IDDM, HTN, hypothyroidsm, CVA and dementia is admitted for AMS, aphasia. Pt was admitted to rule out any acute causes of AMS, Ct head was neg, EKG no acute changes, trops neg and negative CXR. Pt was awake and alert and oriented x 2. Per family by bedside pt is back to her baseline. Neurology consulted, workup thus far negative. Per family's request, pt to be d/ c home with cipro x 7 days and follow up with PMD in 1 week. 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 absent: Wheezes - Cardiovascular Exam Cardiovascular Exam: REGULAR RHYTHM, +S1, +S2, Systolic Murmur - Extremities Exam Extremities exam: normal inspection - Neurological Exam Neurological exam: Alert - Psychiatric Exam Psychiatric exam: Flat Affect Discharge Plan - Discharge Medications Prescriptions: Ciprofloxacin [Cipro] 500 mg PO Q12 #14 tab - Follow Up Plan Condition: GUARDED Disposition: HOME/ ROUTINE Instructions: Altered Mental Status (DC) Additional Instructions: follow up with in 1 week. Referrals: Morris Mcginnis MD [Family Provider] -
--- NOTE | 2018-01-09 13:16 | CP.PCM.PCO ---
Assessment & Plan - Assessment and Plan (Free Text) Assessment: patient will require a Hospital bed secondary to hx CVA with b/blindess, left side weakness, , advanced dementia
[2018-01-09] MEDS ORDERED: Ciprofloxacin 400mg/200ml D5W 400 MG/200 ML BAG IVPB SCH (14:15)
--- NOTE | 2018-01-09 14:31 | US ---
Date of service: 01/08/2018 PROCEDURE: Duplex ultrasound of the carotid and vertebral arteries. HISTORY: AMS COMPARISON: None available. TECHNIQUE: Grayscale and duplex Doppler evaluation of the cervical carotid and vertebral arteries were performed. The common carotid, carotid bifurcations and cervical ICA and proximal ECA were evaluated. The vertebral arteries were evaluated for gross patency and direction. FINDINGS: There are mild calcified atherosclerotic plaques in the carotid bulbs RIGHT CAROTID ARTERIES: Common Carotid Artery: Normal. Maximal flow velocity of 91.2 cm/s. Carotid Bifurcation: Normal. Internal Carotid Artery:Normal. Maximal flow velocity of 100.2 cm/s. External Carotid Artery (proximal branches): Normal. Maximal flow velocity of 84.6 cm/s. ICA/CCA Ratio: 1.4 LEFT CAROTID ARTERIES: Common Carotid Artery: Normal. Maximal flow velocity of 55.9 cm/s. Carotid Bifurcation: Normal. Internal Carotid Artery:Normal. Maximal flow velocity of 117.1 cm/s. External Carotid Artery (proximal branches): Normal. Maximal flow velocity of 127.2 cm/s. ICA/CCA Ratio: 1.8 VERTEBRAL ARTERIES: Right Vertebral Artery: Patent. Antegrade flow. Left Vertebral Artery: Patent. Antegrade flow. OTHER FINDINGS: None. IMPRESSION: No evidence of hemodynamically significant stenosis in the internal carotid arteries by peak systolic velocity criteria. Patent bilateral vertebral arteries with antegrade flow.
[2018-01-09 16:03] VITALS: BP 104/60; PULSE 62; RESP 16; TEMP 97.6; O2SAT 98
== END 2018-01-09 23:31 | disposition home or self-care (01) ==
LOC: H.ER 16:05 → H.ERHOLD 18:36 → H.TEL 21:59
PROVIDERS: ADMIT Family Medicine; ATTEND Family Medicine
DX: R41.82 Altered mental status, unspecified (principal); G30.9 Alzheimer's disease, unspecified; F02.80 Dementia in other diseases classified elsewhere, unspecified severity, without behavioral disturbance, psychotic disturbance, mood disturbance, and anxiety; H54.62 Unqualified visual loss, left eye, normal vision right eye; I11.0 Hypertensive heart disease with heart failure; I50.9 Heart failure, unspecified; R47.01 Aphasia; Z79.02 Long term (current) use of antithrombotics/antiplatelets; Z79.4 Long term (current) use of insulin; Z79.82 Long term (current) use of aspirin; Z86.73 Personal history of transient ischemic attack (TIA), and cerebral infarction without residual deficits; Z87.01 Personal history of pneumonia (recurrent); D64.9 Anemia, unspecified; F32.9 Major depressive disorder, single episode, unspecified; F41.9 Anxiety disorder, unspecified; G43.909 Migraine, unspecified, not intractable, without status migrainosus; K29.70 Gastritis, unspecified, without bleeding; Z79.899 Other long term (current) drug therapy; E03.9 Hypothyroidism, unspecified; E11.9 Type 2 diabetes mellitus without complications; E78.00 Pure hypercholesterolemia, unspecified; E78.5 Hyperlipidemia, unspecified
CPT/HCPCS: 36415; 70450; 71045; 80053; 80061; 81003; 82306; 82607; 82803; 82948; 83036; 83735; 84100; 84484; 85025; 85610; 85730; 86850; 86900; 92526; 92610; 93005; 93306; 93880; 99285; C9113; G0378; G8996; G8997; J0360; J0744; J7030

== ENCOUNTER 2018-01-30 07:16 | Inpatient (IN) | payer MEDICARE ==
[2018-01-30 07:17] VITALS: BMI 27.4
[2018-01-30] MEDS ORDERED: Sodium Chloride 0.9% 500 ML IV STA (08:11)
--- NOTE | 2018-01-30 08:34 | ED PDOC ---
Syncope/Near Syncope/Dizziness Time Seen by Provider: 01/30/18 07:38 Chief Complaint (Nursing): Syncope Chief Complaint (Provider): Syncope History Per: Family (daughter) History/Exam Limitations: no limitations Onset/Duration Of Symptoms: Days Current Symptoms Are (Timing): Still Present Additional History Per: EMS Additional Complaint(s): 82 year old female with a past medical history of TIA, diabetes, hyperthyroid, dementia and stroke presents to the ED for an evaluation of syncope. As per daughter, patient had breakfast at 5:30am in the morning and at 5:45am, patient s right eye was rolled back, she had slurred speech, her skin was cold and wet. Patient became unresponsive around 6:00am. She vomited and had 2 bowel movements as per EMS. According to the EMS, patient had difficulty breathing and was hypertensive. She was coughing phlegm. Patient is at baseline now in ED. Denies fever, abdominal pain, leg pain or diarrhea. 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; L side weakness), Dementia, Depression, Diabetes, Diverticulitis (Diverticulosis), Fractures (rt wrist/elbow), Gastritis, HTN, Hypercholesterolemia, Hyperlipidemia, Hypothyroidism, Migraine, Pneumonia, TIA ( 2013) Denies: Arthritis, HIV, Chronic Kidney Disease - Surgical History Surgical History: Tonsillectomy (partial thyroidectomy) Denies: CABG Other surgeries: cornea transplant - Family History Family History: States: Unknown Family Hx - Home Medications Home Medications: Ambulatory Orders Medication Instructions Recorded Acetaminophen/Butalbital/Caf 1 tab PO Q8H PRN 08/23/15 [Fioricet] Atorvastatin [Lipitor] 40 mg PO HS 08/23/15 Cholecalciferol [Vitamin D 1000 IU] 1,000 units PO DAILY 08/23/15 Clopidogrel [Plavix] 75 mg PO DAILY 08/23/15 Donepezil [Aricept] 10 mg PO HS 08/23/15 Latanoprost 0.005% Opht [Xalatan 1 drop LEFTEYE HS 08/23/15 Opht] Meclizine HCl [Antivert] 25 mg PO TID PRN 08/23/15 Memantine [Namenda] 10 mg PO Q12 08/23/15 Prednisolone Acetate [Pred Forte] 1 drop LEFTEYE QID 08/23/15 Sertraline [Zoloft] 50 mg PO HS 08/23/15 Metoprolol Tartrate [Lopressor] 12.5 mg PO DAILY PRN 10/02/16 Levothyroxine [Synthroid] 75 mcg PO DAILY@0630 tab 05/28/17 Brimonidine Tartrate/Timolol 1 drop LEFTEYE Q12 06/10/17 [Combigan 0.2%-0.5% Eye Drops] Insulin Aspart Prot/Insuln Asp 10 unit SC DIN 06/10/17 [Novolog Mix 70-30 Vial] Insulin Aspart Prot/Insuln Asp 40 unit SC BRK 06/10/17 [Novolog Mix 70-30 Vial] Ranitidine HCl [Zantac] 150 mg PO BID 06/10/17 cycloSPORINE [Restasis] 1 drop LEFTEYE Q12H 06/10/17 risperiDONE [RisperDAL Tab] 0.25 mg PO QAM 06/10/17 Aspirin [Ecotrin] 81 mg PO Q48H 12/16/17 Carboxymethylcellulose Sodium 1 drop RIGHTEYE HS 12/16/17 [Lubricant Eye Drops] Ramipril [Altace] 5 mg PO DAILY 12/16/17 Risperidone [Risperdal] 0.5 mg PO HS 12/16/17 Nystatin [Nystop Topical Powder] 1 applic TOP TID #1 bottle 12/29/17 Fluconazole [Diflucan] 100 mg PO HS 01/07/18 Tamsulosin [Flomax] 0.4 mg PO HS 01/07/18 Ciprofloxacin [Cipro] 500 mg PO Q12 #14 tab 01/09/18 - Allergies Allergies/Adverse Reactions: Allergies Allergy/AdvReac Type Severity Reaction Status Date / Time aspirin Allergy NAUSEA Verified 01/30/18 07:43 ciprofloxacin Allergy REDNESS Verified 01/30/18 07:43 Sulfa (Sulfonamide Allergy RASH Verified 01/30/18 07:43 Antibiotics) Iodinated Contrast- Oral and AdvReac VOMITING Verified 01/30/18 07:43 IV Dye metformin AdvReac DIARRHEA Verified 01/30/18 07:43 Review of Systems ROS Statement: Except As Marked, All Systems Reviewed And Found Negative Constitutional: Negative for: Fever Eyes: Positive for: Other (right eye rolled back) Respiratory: Positive for: Cough, Shortness of Breath Gastrointestinal: Positive for: Vomiting, Other (2 bowel movements ). Negative for: Abdominal Pain, Diarrhea Musculoskeletal: Negative for: Leg Pain Neurological: Positive for: Change in Speech, Other (unresponsive) Psych: Negative for: Suicidal ideation (homicidal ideation) Physical Exam - Reviewed Nursing Documentation Reviewed: Yes Vital Signs Reviewed: Yes - Physical Exam Appears: Positive for: Well (responding), Non-toxic, No Acute Distress Head Exam: Positive for: ATRAUMATIC, NORMAL INSPECTION, NORMOCEPHALIC Skin: Positive for: Normal Color, Warm, Dry Eye Exam: Positive for: EOMI, Normal appearance, PERRL ENT: Positive for: Normal ENT Inspection Neck: Positive for: Normal, Painless ROM, Supple. Negative for: Decreased ROM Cardiovascular/Chest: Positive for: Regular Rate, Rhythm. Negative for: Murmur Respiratory: Positive for: Crackles (right side). Negative for: Wheezing Gastrointestinal/Abdominal: Positive for: Normal Exam, Bowel Sounds, Soft. Negative for: Tenderness, Guarding, Rebound Back: Positive for: Normal Inspection. Negative for: L CVA Tenderness, R CVA Tenderness Extremity: Positive for: Normal ROM. Negative for: Tenderness, Pedal Edema, Deformity Neurologic/Psych: Positive for: Alert, Oriented (x3) - Laboratory Results Result Diagrams: 01/30/18 08:40 01/30/18 08:40 - ECG O2 Sat by Pulse Oximetry: 92 (RA) Pulse Ox Interpretation: Normal Medical Decision Making Medical Decision Making: Time: 808 Initial Impression: altered mental status r/o infection, dehydration, seizure hyperglycemia Initial Plan: --Venous Blood Gas Shock --Head w/o Contrast [CT] --EKG --BMP --Lipase --Prolactin --Troponin I --ED Urine Dipstick --CBC w/ Differential --PTT [COAG] --Prothrombin Time [COAG] --Chest One View [RAD] --Normal Saline 500 mls/hr --Blood Culture --Urine Culture --IV Insertion --Glucose, Blood, POC --Solis [urine catheter insertion] --Urinalysis --Reevaluation PROCEDURE: CENTRAL LINE PLACEMENT Performed by the emergency provider, Joelle Santana MD Consent: Discussion of the risks, benefits, and alternatives to the procedure, along with informed consent was precluded by the urgency of the procedure and the patient condition. Anesthesia: Local anesthesia and lidocaine used. Skin Preparation: Hand hygiene performed prior to central venous catheter insertion. Sterile field, sterile drape, sterile technique, and cap and gown were used. Location: subclavian (R) Technique: The landmarks for the line placement were identified. Successful placement: {YES }. Line sutured with silk and appropriate dressing applied. Assessment: Good patency and blood return through all three lumens. The ports were appropriately flushed. See post procedure X-Ray interpretation. Chest x-ray confirmed no pneumothorax or effusion Post-procedure: Patient tolerated the procedure well with no immediate complications Time: 933 PROCEDURE: CHEST RADIOGRAPH, 1 VIEW HISTORY: cough, right sided rales, ams COMPARISON: Chest radiographs 01/07/2018. FINDINGS: LUNGS: A bronchovascular markings are prominent at the bilateral bases, left greater than right with linear atelectasis or fibrosis noted at the left base. Dense mitral annular calcifications are appreciated once again with mild cardiomegaly evident. No pulmonary vascular congestion. An interval MediPort is been inserted by an apparent right subclavian approach with tip terminating at the right atrium. PLEURA: No pneumothorax or pleural fluid seen. OSSEOUS STRUCTURES: No significant abnormalities. VISUALIZED UPPER ABDOMEN: Right hemidiaphragm elevation again noted. OTHER FINDINGS: None. IMPRESSION: Interval right MediPort deployment as discussed above. No pneumothorax bilaterally. Linear atelectasis or fibrosis seen at the left lung base with crowding of the bronchovascular markings bilaterally. Right hemidiaphragm elevation again evident. Scribe Attestation: Documented by Jayna Aggarwal, acting as a scribe for Joelle Santana MD Provider Scribe Attestation: All medical record entries made by the Scribe were at my direction and personally dictated by me. I have reviewed the chart and agree that the record accurately reflects my personal performance of the history, physical exam, medical decision making, and the department course for this patient. I have also personally directed, reviewed, and agree with the discharge instructions and disposition. Procedures - Time-Out Type of Procedure: central line Site of Procedure: subclavian Correct Patient: Yes Correct Procedure: Yes Correct Site Marked: Yes X-Ray Marked: Yes Medication Recon: Yes - Central Line Central Line Procedure: sterile dressing applied Central Line Postion: subclavian (R) Anesthesia: Lidocaine Complications: none Disposition - Clinical Impression Clinical Impression: UTI (urinary tract infection) - Patient ED Disposition Is Patient to be Admitted: Yes Doctor Will See Patient In The: Hospital - Disposition Disposition: Transfer of Care Disposition Time: 10:30 Condition: FAIR Forms: [employer] (Kinyarwanda) - Pt Status Changed To: Hospital Disposition Of: Inpatient - Admit Certification Admit to Inpatient:: After my assessment, the patient will require hospitalization for at least two midnights. This is because of the severity of symptoms shown, intensity of services needed, and/or the medical risk in this patient being treated as an outpatient. - POA Present On Arrival: None
[2018-01-30 08:55] LABS: BASO # 0.1 K/uL (0.0-0.2); BASO % 0.2 % (0.0-2.0); EOS # 0.1 K/uL (0.0-0.7); EOS % 0.3 % (0.0-4.0); LYMPH # 1.1 K/uL (1.0-4.3); LYMPH % 3.5 % (20.0-40.0); MEAN CELL VOLUME 89.6 fl (81.0-99.0); MEAN CORPUSCULAR HEMOGLOBIN 29.7 pg (27.0-31.0); MEAN CORPUSCULAR HGB CONC 33.2 g/dL (33.0-37.0); MEAN PLATELET VOLUME 9.1 fl (7.2-11.7); MONO # 1.2 K/uL (0.0-0.8); PLATELET COUNT 386 K/uL (130-400); RBC 3.71 Mil/uL (3.80-5.20); RED CELL DISTRIBUTION WIDTH 14.4 % (11.5-14.5); WHITE BLOOD COUNT 30.4 K/uL (4.8-10.8)
[2018-01-30 08:58] LABS: VENOUS BLOOD GAS BASE EXCESS 4.5 mmol/L (0.0-2.0); VENOUS BLOOD GAS PCO2 54 mmHg (40-60); VENOUS BLOOD GAS PO2 38 mm/Hg (30-55); VENOUS BLOOD PH 7.37 (7.32-7.43)
[2018-01-30 09:13] LABS: ALBUMIN 3.4 g/dL (3.5-5.0); ALT/SGPT 20 U/L (9-52); AST/SGOT 25 U/L (14-36); BLOOD UREA NITROGEN 22 mg/dl (7-17); CALCIUM 9.1 mg/dL (8.4-10.2); GFR AFRICAN-AMERICAN > 60; GFR NON-AFRICAN AMERICAN 53; LIPASE 60 U/L (23-300)
--- NOTE | 2018-01-30 09:36 | RAD ---
Date of service: 01/30/2018 PROCEDURE: CHEST RADIOGRAPH, 1 VIEW HISTORY: cough, right sided rales, ams COMPARISON: Chest radiographs 01/07/2018. FINDINGS: LUNGS: A bronchovascular markings are prominent at the bilateral bases, left greater than right with linear atelectasis or fibrosis noted at the left base. Dense mitral annular calcifications are appreciated once again with mild cardiomegaly evident. No pulmonary vascular congestion. An interval MediPort is been inserted by an apparent right subclavian approach with tip terminating at the right atrium. PLEURA: No pneumothorax or pleural fluid seen. OSSEOUS STRUCTURES: No significant abnormalities. VISUALIZED UPPER ABDOMEN: Right hemidiaphragm elevation again noted. OTHER FINDINGS: None. IMPRESSION: Interval right MediPort deployment as discussed above. No pneumothorax bilaterally. Linear atelectasis or fibrosis seen at the left lung base with crowding of the bronchovascular markings bilaterally. Right hemidiaphragm elevation again evident.
[2018-01-30 10:01] LABS: ANISOCYTOSIS SLIGHT; LYMPHOCYTE 10 % (20-50); MONOCYTE 9 % (0-10); NEUTROPHIL 81 % (42-75); OVALOCYTES MODERATE; PLATELET ESTIMATE NORMAL (NORMAL); TEARDROP CELLS SLIGHT; TOTAL CELLS COUNTED 100
[2018-01-30 10:02] LABS: LARGE PLATELETS PRESENT
[2018-01-30 10:03] LABS: RENAL EPITHELIAL 4 /hpf (0-3); SQUAMOUS EPITHIAL 1 /hpf (0-5); URINE BACTERIA MANY (<OCC); URINE BILIRUBIN NEGATIVE (NEGATIVE); URINE BLOOD NEGATIVE (NEGATIVE); URINE CLARITY TURBID (Clear); URINE COLOR AMBER (YELLOW); URINE GLUCOSE (UA) >=500 mg/dL (Normal); URINE LEUKOCYTE ESTERASE LARGE Leu/uL (Negative); URINE PROTEIN 100 mg/dL (NEGATIVE); WBC CLUMPS MANY /hpf
[2018-01-30] MEDS ORDERED: Sodium Chloride 0.9% 1,000 ML IV STA (10:50)
[2018-01-30] MEDS ORDERED: cefTRIAXone (Rocephin) 1 gm Inj ONE (10:52)
--- NOTE | 2018-01-30 11:02 | CT ---
Date of service: 01/30/2018 PROCEDURE: CT HEAD WITHOUT CONTRAST. HISTORY: altered mental status COMPARISON: 01/07/2018. TECHNIQUE: Axial computed tomography images were obtained through the head/brain without intravenous contrast. Coronal and sagittal reconstructed images. Radiation dose: Total exam DLP = 777.43 mGy-cm. This CT exam was performed using one or more of the following dose reduction techniques: Automated exposure control, adjustment of the mA and/or kV according to patient size, and/or use of iterative reconstruction technique. FINDINGS: HEMORRHAGE: No intracranial hemorrhage. BRAIN: No mass effect or edema. Profound Cortical cerebellar atrophy, periventricular small vessel disease. VENTRICLES: Unremarkable. No hydrocephalus. CALVARIUM: Unremarkable. PARANASAL SINUSES: Unremarkable as visualized. No significant inflammatory changes. MASTOID AIR CELLS: Unremarkable as visualized. No inflammatory changes. OTHER FINDINGS: None. IMPRESSION: No acute intracranial abnormalities. No significant findings to account for the clinical presentation. No significant interval change compared to the prior examination(s).
--- NOTE | 2018-01-30 11:54 | CARD ---
APPROVED REPORT Date of service: 01/30/2018 EKG Measurement Heart [id number] <Conclusion> Normal sinus rhythm prolonged QT Nonspecific ST and T wave abnormality Abnormal ECG
[2018-01-30] MEDS ORDERED: Apap-Butalbital-Caffeine 325-50-40mg Tab PO PRN (15:29)
[2018-01-30] MEDS ORDERED: Dextrose 50% SYRINGE Inj (50 ml) IV PRN (16:00)
[2018-01-30] MEDS ORDERED: Glucagon Recombinant 1 mg Inj IM PRN (16:00)
[2018-01-30] MEDS: Insulin Lispro (humaLOG) 100 Units/ml Inj SC SCH ×2 (17:22→22:00)
--- NOTE | 2018-01-30 17:32 | CP.PCM.HP ---
<Fariba Hernandez - Last Filed: 01/30/18 17:56> History of Present Illness - History of Present Illness History of Present Illness: 82 YO female with PMHx of IDDM, HTN, hypothyroidsm, CVA and dementia presented to [facility] ED after an episode of altered mental status as witnessed by her daughter who is at bedside to provide history. Pt has had similar episodes in the past with neuro workup. At the time that they got to ED, she was back to baseline. In ED, was found to have WBC 30 and 800 WBC in urine; suspected UTI. Daughter admits that for the past few days pt's urine has been malodorous. Pt has not had chest pain, dyspnea, fevers. Code status discussed with pt's daughter at bedside- DNR/DNI; ED RN Andre present. PMD: Madi Vera PMHx: IDDM type 2, HTN, hypothyroidism, CVA with b/l blindess, left side weakness, , diverticulitis, advanced dementia SurgHx: partial thyroidectomy, tonsillectomy FMHx: noncontributory SHx: denies tobacco/Etoh or drugs Allergies: sulfanamide antibiotics, iodine contrast, metformin; aspirin listed but pt takes at home and has taken in hospital before Present on Admission - Present on Admission Any Indicators Present on Admission: No Review of Systems - Review of Systems Review of Systems: as per HPI Past Patient History - Infectious Disease Hx of Infectious Diseases: None - Tetanus Immunizations Tetanus Immunization: Unknown - Past Medical History & Family History Past Medical History?: Yes - Past Social History Smoking Status: Never Smoked - CARDIAC Hx Congestive Heart Failure: Yes Hx Hypercholesterolemia: Yes Hx Hypertension: Yes - PULMONARY Hx Pneumonia: Yes - NEUROLOGICAL Hx Alzheimer's Disease: Yes Hx Dementia: Yes Hx Migraine: Yes Hx Transient Ischemic Attacks (TIA): Yes (2013) - HEENT Hx HEENT Problems: Yes - RENAL Hx Chronic Kidney Disease: No - ENDOCRINE/METABOLIC Hx Hypothyroidism: Yes - HEMATOLOGICAL/ONCOLOGICAL Hx Anemia: Yes Hx Human Immunodeficiency Virus (HIV): No - INTEGUMENTARY Hx Dermatological Problems: No - MUSCULOSKELETAL/RHEUMATOLOGICAL Hx Arthritis: No Hx Fractures: Yes (rt wrist/elbow) - GASTROINTESTINAL Hx Diverticulitis: Yes (Diverticulosis) Hx Gastritis: Yes - GENITOURINARY/GYNECOLOGICAL Hx Genitourinary Disorders: Yes - PSYCHIATRIC Hx Anxiety: Yes Hx Depression: Yes - SURGICAL HISTORY Hx Coronary Artery Bypass Graft: No Hx Tonsillectomy: Yes (partial thyroidectomy) - ANESTHESIA Hx Anesthesia: Yes Hx Anesthesia Reactions: Yes (HALLUCINATION, CONFUSION) Hx Malignant Hyperthermia: No Meds Allergies/Adverse Reactions: Allergies Allergy/AdvReac Type Severity Reaction Status Date / Time aspirin Allergy NAUSEA Verified 01/30/18 07:43 ciprofloxacin Allergy REDNESS Verified 01/30/18 07:43 Sulfa (Sulfonamide Allergy RASH Verified 01/30/18 07:43 Antibiotics) Iodinated Contrast- Oral and AdvReac VOMITING Verified 01/30/18 07:43 IV Dye metformin AdvReac DIARRHEA Verified 01/30/18 07:43 Physical Exam - Constitutional Appears: Chronically Ill - Eye Exam Additional comments: plastic patch over R eye - Respiratory Exam Respiratory Exam: Clear to Auscultation Bilateral, NORMAL BREATHING PATTERN Additional comments: central line in place - Cardiovascular Exam Cardiovascular Exam: REGULAR RHYTHM, +S1, +S2 - GI/Abdominal Exam GI & Abdominal Exam: Normal Bowel Sounds, Soft. absent: Tenderness - Extremities Exam Extremities exam: Positive for: normal inspection. Negative for: calf tenderness - Neurological Exam Neurological exam: Altered - Skin Skin Exam: Normal Color, Warm Results - Vital Signs Recent Vital Signs: Last Vital Signs Temp 98.8 F 01/30/18 15:48 Pulse 76 01/30/18 15:48 Resp 17 01/30/18 15:48 BP 105/59 L 01/30/18 15:48 Pulse Ox 93 L 01/30/18 15:48 - Labs Result Diagrams: 01/30/18 08:40 01/30/18 08:40 Labs: Laboratory Results - last 24 hr 01/30/18 01/30/18 01/30/18 07:20 08:40 08:40 WBC 30.4 H D RBC 3.71 L Hgb 11.0 L Hct 33.3 L MCV 89.6 MCH 29.7 MCHC 33.2 RDW 14.4 Plt Count 386 MPV 9.1 Neut % (Auto) 92.0 H Lymph % (Auto) 3.5 L [place] % (Auto) 4.0 Eos % (Auto) 0.3 Baso % (Auto) 0.2 Neut # (Auto) 28.0 H Lymph # (Auto) 1.1 [place] # (Auto) 1.2 H Eos # (Auto) 0.1 Baso # (Auto) 0.1 Neutrophils % (Manual) 81 H Lymphocytes % (Manual) 10 L Monocytes % (Manual) 9 Platelet Estimate Normal Large Platelets Present Anisocytosis (manual) Slight Macrocytosis (manual) Slight Tear Drop Cells Slight Ovalocytes Moderate pO2 VBG pH VBG pCO2 VBG HCO3 VBG Total CO2 VBG O2 Sat (Calc) VBG Base Excess VBG Potassium Glucose Lactate FiO2 Sodium 141 Potassium 4.0 Chloride 104 Carbon Dioxide 28 Anion Gap 13 BUN 22 H Creatinine 1.0 Est GFR ( Amer) > 60 Est GFR (Non-Af Amer) 53 POC Glucose (mg/dL) 86 Random Glucose 111 H Calcium 9.1 Total Bilirubin 0.4 AST 25 ALT 20 Alkaline Phosphatase 87 Troponin I < 0.0120 Total Protein 6.8 Albumin 3.4 L Globulin 3.4 Albumin/Globulin Ratio 1.0 Lipase 60 Venous Blood Potassium Urine Color Urine Clarity Urine pH Ur Specific [place] Urine Protein Urine Glucose (UA) Urine Ketones Urine Blood Urine Nitrate Urine Bilirubin Urine Urobilinogen Ur Leukocyte Esterase Urine RBC (Auto) Urine WBC Clumps (Auto) Urine Microscopic WBC Ur Squamous Epith Cells Ur Renal Epithelial Cell Urine Bacteria 01/30/18 01/30/18 01/30/18 08:55 09:21 17:12 WBC RBC Hgb Hct MCV MCH MCHC RDW Plt Count MPV Neut % (Auto) Lymph % (Auto) [place] % (Auto) Eos % (Auto) Baso % (Auto) Neut # (Auto) Lymph # (Auto) [place] # (Auto) Eos # (Auto) Baso # (Auto) Neutrophils % (Manual) Lymphocytes % (Manual) Monocytes % (Manual) Platelet Estimate Large Platelets Anisocytosis (manual) Macrocytosis (manual) Tear Drop Cells Ovalocytes pO2 38 VBG pH 7.37 VBG pCO2 54 VBG HCO3 27.7 VBG Total CO2 32.9 H VBG O2 Sat (Calc) 69.4 H VBG Base Excess 4.5 H VBG Potassium 4.1 Glucose 117 H Lactate 1.7 FiO2 21.0 Sodium 140.0 Potassium Chloride 105.0 Carbon Dioxide Anion Gap BUN Creatinine Est GFR ( Amer) Est GFR (Non-Af Amer) POC Glucose (mg/dL) 154 H Random Glucose Calcium Total Bilirubin AST ALT Alkaline Phosphatase Troponin I Total Protein Albumin Globulin Albumin/Globulin Ratio Lipase Venous Blood Potassium 4.1 Urine Color [place]inda Urine Clarity Turbid Urine pH 5.0 Ur Specific [place] 1.015 Urine Protein 100 Urine Glucose (UA) >=500 Urine Ketones 20 Urine Blood Negative Urine Nitrate Negative Urine Bilirubin Negative Urine Urobilinogen 4.0 H Ur Leukocyte Esterase Large Urine RBC (Auto) 30 H Urine WBC Clumps (Auto) Many H Urine Microscopic WBC 883 H Ur Squamous Epith Cells 1 Ur Renal Epithelial Cell 4 H Urine Bacteria Many H Assessment & Plan (1) Urinary tract infection Status: Acute - Assessment and Plan (Free Text) Plan: - admit to tele - IV hydration - s/p 1gm rocephin; start zosyn - await urine/blood cultures - ID consulted - f/u morning labs - resume home meds - regular diet - scd, lovenox <Morris Mcginnis L - Last Filed: 02/02/18 23:50> Results - Vital Signs Recent Vital Signs: Last Vital Signs Temp 98.2 F 02/02/18 19:21 Pulse 72 02/02/18 19:21 Resp 20 02/02/18 19:21 BP 136/67 02/02/18 19:21 Pulse Ox 94 L 02/02/18 19:21 - Labs Result Diagrams: 02/02/18 05:35 02/02/18 05:35 Labs: Laboratory Results - last 24 hr 01/30/18 01/31/18 01/31/18 22:05 04:18 11:11 WBC RBC Hgb Hct MCV MCH MCHC RDW Plt Count MPV Neut % (Auto) Lymph % (Auto) [place] % (Auto) Eos % (Auto) Baso % (Auto) Neut # (Auto) Lymph # (Auto) [place] # (Auto) Eos # (Auto) Baso # (Auto) Sodium Potassium Chloride Carbon Dioxide Anion Gap BUN Creatinine Est GFR ( Amer) Est GFR (Non-Af Amer) POC Glucose (mg/dL) 179 H 218 H 171 H Random Glucose Calcium Total Bilirubin AST ALT Alkaline Phosphatase Total Protein Albumin Globulin Albumin/Globulin Ratio TSH 3rd Generation 01/31/18 01/31/18 02/01/18 17:01 21:05 04:06 WBC RBC Hgb Hct MCV MCH MCHC RDW Plt Count MPV Neut % (Auto) Lymph % (Auto) [place] % (Auto) Eos % (Auto) Baso % (Auto) Neut # (Auto) Lymph # (Auto) [place] # (Auto) Eos # (Auto) Baso # (Auto) Sodium Potassium Chloride Carbon Dioxide Anion Gap BUN Creatinine Est GFR ( Amer) Est GFR (Non-Af Amer) POC Glucose (mg/dL) 120 H 170 H 216 H Random Glucose Calcium Total Bilirubin AST ALT Alkaline Phosphatase Total Protein Albumin Globulin Albumin/Globulin Ratio TSH 3rd Generation 02/01/18 02/01/18 02/01/18 11:28 16:17 22:06 WBC RBC Hgb Hct MCV MCH MCHC RDW Plt Count MPV Neut % (Auto) Lymph % (Auto) [place] % (Auto) Eos % (Auto) Baso % (Auto) Neut # (Auto) Lymph # (Auto) [place] # (Auto) Eos # (Auto) Baso # (Auto) Sodium Potassium Chloride Carbon Dioxide Anion Gap BUN Creatinine Est GFR ( Amer) Est GFR (Non-Af Amer) POC Glucose (mg/dL) 197 H 277 H 213 H Random Glucose Calcium Total Bilirubin AST ALT Alkaline Phosphatase Total Protein Albumin Globulin Albumin/Globulin Ratio TSH 3rd Generation 02/02/18 02/02/18 02/02/18 05:34 05:35 05:35 WBC 7.4 D RBC 3.24 L Hgb 9.6 L Hct 28.9 L MCV 89.4 MCH 29.7 MCHC 33.2 RDW 14.4 Plt Count 291 MPV 9.7 Neut % (Auto) 69.1 Lymph % (Auto) 16.9 L [place] % (Auto) 12.4 H Eos % (Auto) 1.3 Baso % (Auto) 0.3 Neut # (Auto) 5.1 Lymph # (Auto) 1.3 [place] # (Auto) 0.9 H Eos # (Auto) 0.1 Baso # (Auto) 0.0 Sodium 134 Potassium 3.4 L Chloride 98 Carbon Dioxide 29 Anion Gap 10 BUN 15 Creatinine 0.6 L Est GFR ( Amer) > 60 Est GFR (Non-Af Amer) > 60 POC Glucose (mg/dL) 238 H Random Glucose 251 H Calcium 8.1 L Total Bilirubin 0.3 AST 23 ALT 26 Alkaline Phosphatase 76 Total Protein 5.6 L Albumin 2.6 L Globulin 3.0 Albumin/Globulin Ratio 0.9 L TSH 3rd Generation 2.80 02/02/18 11:35 WBC RBC Hgb Hct MCV MCH MCHC RDW Plt Count MPV Neut % (Auto) Lymph % (Auto) [place] % (Auto) Eos % (Auto) Baso % (Auto) Neut # (Auto) Lymph # (Auto) [place] # (Auto) Eos # (Auto) Baso # (Auto) Sodium Potassium Chloride Carbon Dioxide Anion Gap BUN Creatinine Est GFR ( Amer) Est GFR (Non-Af Amer) POC Glucose (mg/dL) 238 H Random Glucose Calcium Total Bilirubin AST ALT Alkaline Phosphatase Total Protein Albumin Globulin Albumin/Globulin Ratio TSH 3rd Generation Assessment & Plan - Assessment and Plan (Free Text) Plan: I was present during evaluation and discussed with Dr Kourtney smiley plans of care and mgt Morris Mcginnis M.D.
--- NOTE | 2018-01-30 18:50 | CP.PCM.CON ---
History of Present Illness - History of Present Illness History of Present Illness: chart reviewed hx ESBL + UTI in past add merrem Review of Systems - Review of Systems All systems: reviewed and no additional remarkable complaints except Past Patient History - Infectious Disease Hx of Infectious Diseases: None - Tetanus Immunizations Tetanus Immunization: Unknown - Past Medical History & Family History Past Medical History?: Yes - Past Social History Smoking Status: Never Smoked - CARDIAC Hx Cardiac Disorders: Yes - PULMONARY Hx Pneumonia: Yes - NEUROLOGICAL Hx Neurological Disorder: Yes - HEENT Hx HEENT Problems: Yes - RENAL Hx Chronic Kidney Disease: No - ENDOCRINE/METABOLIC Hx Endocrine Disorders: Yes - HEMATOLOGICAL/ONCOLOGICAL Hx Blood Disorders: Yes - INTEGUMENTARY Hx Dermatological Problems: No - MUSCULOSKELETAL/RHEUMATOLOGICAL Hx Arthritis: No Hx Fractures: Yes (rt wrist/elbow) - GASTROINTESTINAL Hx Diverticulitis: Yes (Diverticulosis) Hx Gastritis: Yes - GENITOURINARY/GYNECOLOGICAL Hx Genitourinary Disorders: Yes - PSYCHIATRIC Hx Anxiety: Yes Hx Depression: Yes - SURGICAL HISTORY Hx Coronary Artery Bypass Graft: No Hx Tonsillectomy: Yes (partial thyroidectomy) - ANESTHESIA Hx Anesthesia: Yes Hx Anesthesia Reactions: Yes (HALLUCINATION, CONFUSION) Hx Malignant Hyperthermia: No Meds Allergies/Adverse Reactions: Allergies Allergy/AdvReac Type Severity Reaction Status Date / Time aspirin Allergy NAUSEA Verified 01/30/18 07:43 ciprofloxacin Allergy REDNESS Verified 01/30/18 07:43 Sulfa (Sulfonamide Allergy RASH Verified 01/30/18 07:43 Antibiotics) Iodinated Contrast- Oral and AdvReac VOMITING Verified 01/30/18 07:43 IV Dye metformin AdvReac DIARRHEA Verified 01/30/18 07:43 - Medications Medications: Current Medications Acetaminophen/Butalbital/Caffeine (Fioricet) 1 tab PO Q8H PRN PRN Reason: Migraine headache Aspirin (Ecotrin) 81 mg PO Q48H [facility] Atorvastatin Calcium (Lipitor) 40 mg PO HS [facility] Cholecalciferol (Vitamin D) 1,000 intlu PO DAILY [facility] Clopidogrel Bisulfate (Plavix) 75 mg PO DAILY [facility] Dextrose (Dextrose 50% Inj) 0 ml IV STAT PRN; Protocol PRN Reason: Hypoglycemia Protocol Dextrose (Glutose 15) 0 gm PO ONCE PRN; Protocol PRN Reason: Hypoglycemia Protocol Donepezil HCl (Aricept) 10 mg PO HS [facility] Enoxaparin Sodium (Lovenox) 40 mg SC DAILY [facility] PRN Reason: Protocol Glucagon (Glucagen Diagnostic Kit) 0 mg IM STAT PRN; Protocol PRN Reason: Hypoglycemia Protocol Sodium Chloride (Sodium Chloride 0.9%) 1,000 mls @ 80 mls/hr IV .[id number] STA Stop: 01/30/18 23:19 Last Admin: 01/30/18 12:28 Dose: 80 mls/hr Piperacillin Sod/Tazobactam (Sod 3.375 gm/ Sodium Chloride) 100 mls @ 100 mls/ hr IVPB Q6 [facility] PRN Reason: Protocol Insulin Human Lispro (Humalog) 0 units SC ACHS [facility] PRN Reason: Protocol Last Admin: 01/30/18 17:22 Dose: Not Given Latanoprost (Xalatan Opht) 1 drop OD HS [facility] Levothyroxine Sodium (Synthroid) 75 mcg PO DAILY@0630 [facility] Meclizine HCl (Antivert) 25 mg PO TID PRN PRN Reason: Dizziness Memantine (Namenda) 10 mg PO Q12 [facility] Ramipril (Altace) 5 mg PO DAILY [facility] Risperidone (Risperdal Tab) 0.5 mg PO HS [facility] Sertraline HCl (Zoloft) 50 mg PO HS [facility] Tamsulosin HCl (Flomax) 0.4 mg PO HS [facility] Physical Exam - Constitutional Appears: Confused, Chronically Ill - Head Exam Head Exam: ATRAUMATIC, NORMOCEPHALIC - Eye Exam Eye Exam: PERRL - ENT Exam ENT Exam: Mucous Membranes Dry - Neck Exam Neck exam: Negative for: Lymphadenopathy - Respiratory Exam Respiratory Exam: Decreased Breath Sounds - Cardiovascular Exam Cardiovascular Exam: REGULAR RHYTHM - GI/Abdominal Exam GI & Abdominal Exam: Diminished Bowel Sounds, Soft. absent: Tenderness - Rectal Exam Rectal Exam: Deferred - Exam Exam: NORMAL INSPECTION - Extremities Exam Extremities exam: Positive for: pedal pulses present. Negative for: calf tenderness, pedal edema, tenderness - Back Exam Back exam: absent: CVA tenderness (L), CVA tenderness (R) - Neurological Exam Neurological exam: Alert, Altered, CN II-XII Intact - Psychiatric Exam Psychiatric exam: Depressed - Skin Skin Exam: Dry Results - Vital Signs Recent Vital Signs: Last Vital Signs Temp 98.5 F 01/30/18 18:28 Pulse 84 01/30/18 18:28 Resp 16 01/30/18 18:28 BP 117/54 L 01/30/18 18:28 Pulse Ox 94 L 01/30/18 18:21 - Labs Result Diagrams: 01/31/18 05:25 01/31/18 05:25 Labs: Laboratory Results - last 24 hr 01/30/18 01/30/18 01/30/18 07:20 08:40 08:40 WBC 30.4 H D RBC 3.71 L Hgb 11.0 L Hct 33.3 L MCV 89.6 MCH 29.7 MCHC 33.2 RDW 14.4 Plt Count 386 MPV 9.1 Neut % (Auto) 92.0 H Lymph % (Auto) 3.5 L Dale % (Auto) 4.0 Eos % (Auto) 0.3 Baso % (Auto) 0.2 Neut # (Auto) 28.0 H Lymph # (Auto) 1.1 Dale # (Auto) 1.2 H Eos # (Auto) 0.1 Baso # (Auto) 0.1 Neutrophils % (Manual) 81 H Lymphocytes % (Manual) 10 L Monocytes % (Manual) 9 Platelet Estimate Normal Large Platelets Present Anisocytosis (manual) Slight Macrocytosis (manual) Slight Tear Drop Cells Slight Ovalocytes Moderate pO2 VBG pH VBG pCO2 VBG HCO3 VBG Total CO2 VBG O2 Sat (Calc) VBG Base Excess VBG Potassium Glucose Lactate FiO2 Sodium 141 Potassium 4.0 Chloride 104 Carbon Dioxide 28 Anion Gap 13 BUN 22 H Creatinine 1.0 Est GFR ( Amer) > 60 Est GFR (Non-Af Amer) 53 POC Glucose (mg/dL) 86 Random Glucose 111 H Calcium 9.1 Total Bilirubin 0.4 AST 25 ALT 20 Alkaline Phosphatase 87 Troponin I < 0.0120 Total Protein 6.8 Albumin 3.4 L Globulin 3.4 Albumin/Globulin Ratio 1.0 Lipase 60 Venous Blood Potassium Urine Color Urine Clarity Urine pH Ur Specific [place] Urine Protein Urine Glucose (UA) Urine Ketones Urine Blood Urine Nitrate Urine Bilirubin Urine Urobilinogen Ur Leukocyte Esterase Urine RBC (Auto) Urine WBC Clumps (Auto) Urine Microscopic WBC Ur Squamous Epith Cells Ur Renal Epithelial Cell Urine Bacteria 01/30/18 01/30/18 01/30/18 08:55 09:21 17:12 WBC RBC Hgb Hct MCV MCH MCHC RDW Plt Count MPV Neut % (Auto) Lymph % (Auto) Dale % (Auto) Eos % (Auto) Baso % (Auto) Neut # (Auto) Lymph # (Auto) Dale # (Auto) Eos # (Auto) Baso # (Auto) Neutrophils % (Manual) Lymphocytes % (Manual) Monocytes % (Manual) Platelet Estimate Large Platelets Anisocytosis (manual) Macrocytosis (manual) Tear Drop Cells Ovalocytes pO2 38 VBG pH 7.37 VBG pCO2 54 VBG HCO3 27.7 VBG Total CO2 32.9 H VBG O2 Sat (Calc) 69.4 H VBG Base Excess 4.5 H VBG Potassium 4.1 Glucose 117 H Lactate 1.7 FiO2 21.0 Sodium 140.0 Potassium Chloride 105.0 Carbon Dioxide Anion Gap BUN Creatinine Est GFR ( Amer) Est GFR (Non-Af Amer) POC Glucose (mg/dL) 154 H Random Glucose Calcium Total Bilirubin AST ALT Alkaline Phosphatase Troponin I Total Protein Albumin Globulin Albumin/Globulin Ratio Lipase Venous Blood Potassium 4.1 Urine Color Dorinda Urine Clarity Turbid Urine pH 5.0 Ur Specific [place] 1.015 Urine Protein 100 Urine Glucose (UA) >=500 Urine Ketones 20 Urine Blood Negative Urine Nitrate Negative Urine Bilirubin Negative Urine Urobilinogen 4.0 H Ur Leukocyte Esterase Large Urine RBC (Auto) 30 H Urine WBC Clumps (Auto) Many H Urine Microscopic WBC 883 H Ur Squamous Epith Cells 1 Ur Renal Epithelial Cell 4 H Urine Bacteria Many H Assessment & Plan (1) Urinary tract infection Status: Acute (2) Abdominal pain Status: Acute - Assessment and Plan (Free Text) Assessment: recurrernt UTI esbl+ CONT iv RX
[2018-01-30 19:04] LABS: PROLACTIN 295.4 ng/mL (3.0-18.9)
[2018-01-30] MEDS: Meropenem 1 GM in Sodium Chloride 0.9% 100 ML IVPB SCH (21:11)
[2018-01-30] MEDS: Latanoprost 0.005% Opht SOUTION OD SCH (21:14)
[2018-01-30] MEDS ORDERED: Piperacillin/Tazobact 3.375 GM in Sodium Chloride 0.9% 100 ML IVPB SCH (22:00)
[2018-01-31] MEDS: Meropenem 1 GM in Sodium Chloride 0.9% 100 ML IVPB SCH ×4 (01:00→22:12)
[2018-01-31] MEDS: Insulin Lispro (humaLOG) 100 Units/ml Inj SC SCH ×5 (06:30→22:15)
[2018-01-31 06:47] LABS: BASO % 0.2 % (0.0-2.0); EOS % 0.2 % (0.0-4.0); HEMOGLOBIN 9.6 g/dL (12.0-16.0); LYMPH # 1.7 K/uL (1.0-4.3); LYMPH % 10.2 % (20.0-40.0); MEAN CELL VOLUME 90.7 fl (81.0-99.0); MEAN CORPUSCULAR HEMOGLOBIN 29.5 pg (27.0-31.0); MEAN CORPUSCULAR HGB CONC 32.5 g/dL (33.0-37.0); MEAN PLATELET VOLUME 9.6 fl (7.2-11.7); MONO % 6.1 % (0.0-10.0); NEUT % 83.3 % (50.0-75.0); RBC 3.26 Mil/uL (3.80-5.20); RED CELL DISTRIBUTION WIDTH 14.4 % (11.5-14.5); WHITE BLOOD COUNT 16.8 K/uL (4.8-10.8)
[2018-01-31 06:56] LABS: ALB/GLOB RATIO 0.9 (1.0-2.1); ALT/SGPT 13 U/L (9-52); AST/SGOT 19 U/L (14-36); BLOOD UREA NITROGEN 30 mg/dl (7-17); CALCIUM 8.1 mg/dL (8.4-10.2); GFR AFRICAN-AMERICAN > 60; GFR NON-AFRICAN AMERICAN > 60
[2018-01-31] MEDS: Levothyroxine 75 MCG TAB PO SCH (07:43)
[2018-01-31] MEDS: Enoxaparin 40 mg Syringe SC SCH (09:20)
[2018-01-31] MEDS: Cholecalciferol 1,000 INTLU TAB PO SCH (09:24)
[2018-01-31] MEDS: Latanoprost 0.005% Opht SOUTION OD SCH (22:14)
[2018-02-01] MEDS: Meropenem 1 GM in Sodium Chloride 0.9% 100 ML IVPB SCH ×3 (04:46→21:50)
[2018-02-01] MEDS: Levothyroxine 75 MCG TAB PO SCH (06:35)
[2018-02-01] MEDS: Insulin Lispro (humaLOG) 100 Units/ml Inj SC SCH ×4 (06:40→22:39)
[2018-02-01] MEDS: Enoxaparin 40 mg Syringe SC SCH (12:08)
[2018-02-01] MEDS: Cholecalciferol 1,000 INTLU TAB PO SCH (12:11)
--- NOTE | 2018-02-01 12:14 | CP.PCM.PN ---
Subjective - Date & Time of Evaluation Date of Evaluation: 02/01/18 Time of Evaluation: 08:00 - Subjective Subjective: 82 YO female with PMHx of IDDM, HTN, hypothyroidsm, CVA and dementia presented to [facility] ED after an episode of altered mental status In ED, was found to have WBC 30 and 800 WBC in urine; suspected UTI. Daughter admits that for the past few days pt's urine has been malodorous. PMHx: IDDM type 2, HTN, hypothyroidism, CVA with b/l blindess, left side weakness, , diverticulitis, advanced dementia Objective - Vital Signs/Intake and Output Vital Signs (last 24 hours): Temp Pulse Resp BP Pulse Ox 97.9 F 69 18 131/72 96 02/01/18 08:00 02/01/18 08:00 02/01/18 08:00 02/01/18 08:00 02/01/18 08:00 - Medications Medications: Current Medications Acetaminophen/Butalbital/Caffeine (Fioricet) 1 tab PO Q8H PRN PRN Reason: Migraine headache Aspirin (Ecotrin) 81 mg PO Q48H [facility] Last Admin: 01/30/18 21:15 Dose: 81 mg Atorvastatin Calcium (Lipitor) 40 mg PO HS [facility] Last Admin: 01/31/18 22:13 Dose: 40 mg Cholecalciferol (Vitamin D) 1,000 intlu PO DAILY [facility] Last Admin: 02/01/18 12:11 Dose: 1,000 intlu Clopidogrel Bisulfate (Plavix) 75 mg PO DAILY [facility] Last Admin: 02/01/18 12:11 Dose: 75 mg Dextrose (Dextrose 50% Inj) 0 ml IV STAT PRN; Protocol PRN Reason: Hypoglycemia Protocol Dextrose (Glutose 15) 0 gm PO ONCE PRN; Protocol PRN Reason: Hypoglycemia Protocol Donepezil HCl (Aricept) 10 mg PO HS [facility] Last Admin: 01/31/18 22:13 Dose: 10 mg Enoxaparin Sodium (Lovenox) 40 mg SC DAILY [facility] PRN Reason: Protocol Last Admin: 02/01/18 12:08 Dose: 40 mg Glucagon (Glucagen Diagnostic Kit) 0 mg IM STAT PRN; Protocol PRN Reason: Hypoglycemia Protocol Meropenem 1 gm/ Sodium (Chloride) 100 mls @ 100 mls/hr IVPB Q8H [facility] PRN Reason: Protocol Last Admin: 02/01/18 04:46 Dose: 100 mls/hr Insulin Human Lispro (Humalog) 0 units SC [facility] PRN Reason: Protocol Last Admin: 02/01/18 06:40 Dose: 3 units Latanoprost (Xalatan Opht) 1 drop OD HS [facility] Last Admin: 01/31/18 22:14 Dose: 1 drop Levothyroxine Sodium (Synthroid) 75 mcg PO DAILY@0630 [facility] Last Admin: 02/01/18 06:35 Dose: 75 mcg Meclizine HCl (Antivert) 25 mg PO TID PRN PRN Reason: Dizziness Memantine (Namenda) 10 mg PO Q12 [facility] Last Admin: 02/01/18 12:10 Dose: 10 mg Ramipril (Altace) 5 mg PO DAILY [facility] Last Admin: 01/31/18 09:19 Dose: 5 mg Risperidone (Risperdal Tab) 0.5 mg PO [facility] Last Admin: 01/31/18 22:13 Dose: 0.5 mg Sertraline HCl (Zoloft) 50 mg PO [facility] Last Admin: 01/31/18 22:13 Dose: 50 mg Tamsulosin HCl (Flomax) 0.4 mg PO [facility] Last Admin: 01/31/18 22:13 Dose: 0.4 mg - Labs Labs: 01/31/18 05:25 01/31/18 05:25 - Constitutional Appears: Confused, Chronically Ill - Head Exam Head Exam: NORMOCEPHALIC - Eye Exam Eye Exam: PERRL. absent: Scleral icterus - ENT Exam ENT Exam: Mucous Membranes Dry - Neck Exam Neck Exam: absent: Lymphadenopathy - Respiratory Exam Respiratory Exam: Decreased Breath Sounds - Cardiovascular Exam Cardiovascular Exam: REGULAR RHYTHM - GI/Abdominal Exam GI & Abdominal Exam: Distended - Rectal Exam Rectal Exam: Deferred - Exam Exam: NORMAL INSPECTION - Extremities Exam Extremities Exam: absent: Pedal Edema - Back Exam Back Exam: absent: CVA tenderness (L), CVA tenderness (R) - Neurological Exam Neurological Exam: Alert, Altered, Awake, CN II-XII Intact - Psychiatric Exam Psychiatric exam: Depressed - Skin Skin Exam: Dry Assessment and Plan (1) Urinary tract infection Status: Acute (2) Abdominal pain Status: Acute - Assessment and Plan (Free Text) Assessment: recurrent UTI with sepsis secondary to ESBL in an elderly female with multuiple medical problems will need min 14 days IV rx consider imaging and eval - may have neurogenic bladder with retention
[2018-02-01] MEDS: Latanoprost 0.005% Opht SOUTION OD SCH (21:53)
[2018-02-02] MEDS: Meropenem 1 GM in Sodium Chloride 0.9% 100 ML IVPB SCH ×3 (05:34→21:31)
[2018-02-02] MEDS: Levothyroxine 75 MCG TAB PO SCH (05:36)
[2018-02-02 06:48] LABS: BASO % 0.3 % (0.0-2.0); EOS # 0.1 K/uL (0.0-0.7); EOS % 1.3 % (0.0-4.0); HEMOGLOBIN 9.6 g/dL (12.0-16.0); LYMPH # 1.3 K/uL (1.0-4.3); LYMPH % 16.9 % (20.0-40.0); MEAN CELL VOLUME 89.4 fl (81.0-99.0); MEAN CORPUSCULAR HEMOGLOBIN 29.7 pg (27.0-31.0); MEAN CORPUSCULAR HGB CONC 33.2 g/dL (33.0-37.0); MEAN PLATELET VOLUME 9.7 fl (7.2-11.7); MONO # 0.9 K/uL (0.0-0.8); MONO % 12.4 % (0.0-10.0); NEUT # 5.1 K/uL (1.8-7.0); NEUT % 69.1 % (50.0-75.0); RBC 3.24 Mil/uL (3.80-5.20); RED CELL DISTRIBUTION WIDTH 14.4 % (11.5-14.5); WHITE BLOOD COUNT 7.4 K/uL (4.8-10.8)
[2018-02-02 07:42] LABS: ALB/GLOB RATIO 0.9 (1.0-2.1); ALBUMIN 2.6 g/dL (3.5-5.0); ALT/SGPT 26 U/L (9-52); AST/SGOT 23 U/L (14-36); BLOOD UREA NITROGEN 15 mg/dl (7-17); CALCIUM 8.1 mg/dL (8.4-10.2); GFR AFRICAN-AMERICAN > 60; GFR NON-AFRICAN AMERICAN > 60
[2018-02-02] MEDS: Insulin Lispro (humaLOG) 100 Units/ml Inj SC SCH ×4 (08:15→21:38)
[2018-02-02] MEDS: Enoxaparin 40 mg Syringe SC SCH (09:26)
[2018-02-02] MEDS: Cholecalciferol 1,000 INTLU TAB PO SCH (09:28)
[2018-02-02] MEDS ORDERED: Patient's Own Med (Cyclosporine [Restasis] 1 DROP) LEFTEYE SCH (15:15)
[2018-02-02] MEDS: PrednisoLONE 1% OPTH SUSP OD SCH ×2 (17:26→23:00)
[2018-02-02] MEDS ORDERED: Patient's Own Med (Brimonidine Tartrate/Timolol [Combigan 0.2%-0.5% Eye Drops] 1 DROP) LEFTEYE SCH (21:00)
[2018-02-02] MEDS: Brimonidine 0.2% 50 DROP/5 ML BOTTLE OS SCH (21:36)
[2018-02-02] MEDS: Latanoprost 0.005% Opht SOUTION OD SCH (23:00)
[2018-02-02] MEDS: Lubricant Eye Drops UD OD SCH (23:37)
[2018-02-02] MEDS ORDERED: Insulin Detemir 100 Units/ml Inj SC SCH (23:45)
--- NOTE | 2018-02-02 23:54 | CP.PCM.PN ---
Subjective - Date & Time of Evaluation Date of Evaluation: 01/31/18 Time of Evaluation: 14:00 - Subjective Subjective: Patient is afebrile responding very well to current tx WBC dropped from 30 to 16 on Meropenem. Objective - Vital Signs/Intake and Output Vital Signs (last 24 hours): Temp Pulse Resp BP Pulse Ox 98.2 F 72 20 136/67 94 L 02/02/18 19:21 02/02/18 19:21 02/02/18 19:21 02/02/18 19:21 02/02/18 19:21 - Medications Medications: Current Medications Acetaminophen/Butalbital/Caffeine (Fioricet) 1 tab PO Q8H PRN PRN Reason: Migraine headache Artificial Tears (Refresh Opth Soln) 0.3 ml OD TID [facility] Last Admin: 02/02/18 23:37 Dose: 0.3 ml Aspirin (Ecotrin) 81 mg PO Q48H [facility] Last Admin: 02/01/18 15:53 Dose: 81 mg Atorvastatin Calcium (Lipitor) 40 mg PO HS [facility] Last Admin: 02/02/18 21:37 Dose: 40 mg Brimonidine Tartrate (Alphagan 0.2% Opht) 1 drop OS Q12 [facility] Last Admin: 02/02/18 21:36 Dose: 1 drop Cholecalciferol (Vitamin D) 1,000 intlu PO DAILY [facility] Last Admin: 02/02/18 09:28 Dose: 1,000 intlu Clopidogrel Bisulfate (Plavix) 75 mg PO DAILY [facility] Last Admin: 02/02/18 09:26 Dose: 75 mg Dextrose (Dextrose 50% Inj) 0 ml IV STAT PRN; Protocol PRN Reason: Hypoglycemia Protocol Dextrose (Glutose 15) 0 gm PO ONCE PRN; Protocol PRN Reason: Hypoglycemia Protocol Donepezil HCl (Aricept) 10 mg PO HS [facility] Last Admin: 02/02/18 21:37 Dose: 10 mg Enoxaparin Sodium (Lovenox) 40 mg SC DAILY [facility] PRN Reason: Protocol Last Admin: 02/02/18 09:26 Dose: 40 mg Glucagon (Glucagen Diagnostic Kit) 0 mg IM STAT PRN; Protocol PRN Reason: Hypoglycemia Protocol Home Med (Cyclosporine [Restasis]) 1 drop LEFTEYE Q12H [facility] Meropenem 1 gm/ Sodium (Chloride) 100 mls @ 100 mls/hr IVPB Q8H [facility] PRN Reason: Protocol Last Admin: 02/02/18 21:31 Dose: 100 mls/hr Insulin Human Lispro (Humalog) 0 units SC ACHS [facility] PRN Reason: Protocol Last Admin: 02/02/18 21:38 Dose: Not Given Latanoprost (Xalatan Opht) 1 drop OD [facility] Last Admin: 02/02/18 23:00 Dose: 1 drop Levothyroxine Sodium (Synthroid) 75 mcg PO DAILY@0630 [facility] Last Admin: 02/02/18 05:36 Dose: 75 mcg Meclizine HCl (Antivert) 25 mg PO TID PRN PRN Reason: Dizziness Memantine (Namenda) 10 mg PO Q12 [facility] Last Admin: 02/02/18 23:46 Dose: 10 mg Prednisolone Acetate (Pred Forte 1% Opht Susp) 1 drop OD QID [facility] Last Admin: 02/02/18 23:00 Dose: 1 drop Ramipril (Altace) 5 mg PO DAILY [facility] Last Admin: 02/02/18 09:29 Dose: 5 mg Risperidone (Risperdal Tab) 0.5 mg PO [facility] Last Admin: 02/02/18 23:00 Dose: 0.5 mg Sertraline HCl (Zoloft) 50 mg PO [facility] Last Admin: 02/02/18 23:00 Dose: 50 mg Tamsulosin HCl (Flomax) 0.4 mg PO [facility] Last Admin: 02/02/18 21:37 Dose: 0.4 mg Timolol Maleate (Timoptic 0.5% Ophth Soln) 1 drop OS Q12 [facility] Last Admin: 02/02/18 22:00 Dose: 1 drop - Labs Labs: 02/02/18 05:35 02/02/18 05:35 - Head Exam Head Exam: NORMAL INSPECTION - Eye Exam Eye Exam: Normal appearance - ENT Exam ENT Exam: Mucous Membranes Moist - Respiratory Exam Respiratory Exam: Clear to Ausculation Bilateral - GI/Abdominal Exam GI & Abdominal Exam: Normal Bowel Sounds - Neurological Exam Neurological Exam: Awake - Psychiatric Exam Psychiatric exam: Flat Affect Assessment and Plan (1) Urinary tract infection Status: Acute (2) Altered mental status Status: Acute - Assessment and Plan (Free Text) Plan: Cont meds Cont tx Cont iv antibiotics hydrate check labs
--- NOTE | 2018-02-02 23:57 | CP.PCM.PN ---
Subjective - Date & Time of Evaluation Date of Evaluation: 02/01/18 Time of Evaluation: 11:00 - Subjective Subjective: Patient remains stable Has no fever Has good response to IV Meropenem Objective - Vital Signs/Intake and Output Vital Signs (last 24 hours): Temp Pulse Resp BP Pulse Ox 98.2 F 72 20 136/67 94 L 02/02/18 19:21 02/02/18 19:21 02/02/18 19:21 02/02/18 19:21 02/02/18 19:21 - Medications Medications: Current Medications Acetaminophen/Butalbital/Caffeine (Fioricet) 1 tab PO Q8H PRN PRN Reason: Migraine headache Artificial Tears (Refresh Opth Soln) 0.3 ml OD TID [facility] Last Admin: 02/02/18 23:37 Dose: 0.3 ml Aspirin (Ecotrin) 81 mg PO Q48H [facility] Last Admin: 02/01/18 15:53 Dose: 81 mg Atorvastatin Calcium (Lipitor) 40 mg PO HS [facility] Last Admin: 02/02/18 21:37 Dose: 40 mg Brimonidine Tartrate (Alphagan 0.2% Opht) 1 drop OS Q12 [facility] Last Admin: 02/02/18 21:36 Dose: 1 drop Cholecalciferol (Vitamin D) 1,000 intlu PO DAILY [facility] Last Admin: 02/02/18 09:28 Dose: 1,000 intlu Clopidogrel Bisulfate (Plavix) 75 mg PO DAILY [facility] Last Admin: 02/02/18 09:26 Dose: 75 mg Dextrose (Dextrose 50% Inj) 0 ml IV STAT PRN; Protocol PRN Reason: Hypoglycemia Protocol Dextrose (Glutose 15) 0 gm PO ONCE PRN; Protocol PRN Reason: Hypoglycemia Protocol Donepezil HCl (Aricept) 10 mg PO HS [facility] Last Admin: 02/02/18 21:37 Dose: 10 mg Enoxaparin Sodium (Lovenox) 40 mg SC DAILY [facility] PRN Reason: Protocol Last Admin: 02/02/18 09:26 Dose: 40 mg Glucagon (Glucagen Diagnostic Kit) 0 mg IM STAT PRN; Protocol PRN Reason: Hypoglycemia Protocol Home Med (Cyclosporine [Restasis]) 1 drop LEFTEYE Q12H [facility] Meropenem 1 gm/ Sodium (Chloride) 100 mls @ 100 mls/hr IVPB Q8H [facility] PRN Reason: Protocol Last Admin: 02/02/18 21:31 Dose: 100 mls/hr Insulin Human Lispro (Humalog) 0 units SC [facility] PRN Reason: Protocol Last Admin: 02/02/18 21:38 Dose: Not Given Latanoprost (Xalatan Opht) 1 drop OD [facility] Last Admin: 02/02/18 23:00 Dose: 1 drop Levothyroxine Sodium (Synthroid) 75 mcg PO DAILY@0630 [facility] Last Admin: 02/02/18 05:36 Dose: 75 mcg Meclizine HCl (Antivert) 25 mg PO TID PRN PRN Reason: Dizziness Memantine (Namenda) 10 mg PO Q12 [facility] Last Admin: 02/02/18 23:46 Dose: 10 mg Prednisolone Acetate (Pred Forte 1% Opht Susp) 1 drop OD QID [facility] Last Admin: 02/02/18 23:00 Dose: 1 drop Ramipril (Altace) 5 mg PO DAILY [facility] Last Admin: 02/02/18 09:29 Dose: 5 mg Risperidone (Risperdal Tab) 0.5 mg PO [facility] Last Admin: 02/02/18 23:00 Dose: 0.5 mg Sertraline HCl (Zoloft) 50 mg PO [facility] Last Admin: 02/02/18 23:00 Dose: 50 mg Tamsulosin HCl (Flomax) 0.4 mg PO [facility] Last Admin: 02/02/18 21:37 Dose: 0.4 mg Timolol Maleate (Timoptic 0.5% Ophth Soln) 1 drop OS Q12 [facility] Last Admin: 02/02/18 22:00 Dose: 1 drop - Labs Labs: 02/02/18 05:35 02/02/18 05:35 - Head Exam Head Exam: NORMAL INSPECTION - Eye Exam Eye Exam: Normal appearance - Respiratory Exam Respiratory Exam: Clear to Ausculation Bilateral - Cardiovascular Exam Cardiovascular Exam: REGULAR RHYTHM - GI/Abdominal Exam GI & Abdominal Exam: Normal Bowel Sounds - Neurological Exam Neurological Exam: Awake - Skin Skin Exam: Dry Assessment and Plan (1) Urinary tract infection Status: Acute (2) Altered mental status Status: Acute (3) Diabetes mellitus type 2 in obese Status: Acute - Assessment and Plan (Free Text) Plan: Cont meds Cont tx Cont PT check labs
--- NOTE | 2018-02-02 23:58 | CP.PCM.PN ---
Subjective - Date & Time of Evaluation Date of Evaluation: 02/02/18 Time of Evaluation: 10:00 - Subjective Subjective: patient remains stable Noted elevated FBS Has no fever Objective - Vital Signs/Intake and Output Vital Signs (last 24 hours): Temp Pulse Resp BP Pulse Ox 98.2 F 72 20 136/67 94 L 02/02/18 19:21 02/02/18 19:21 02/02/18 19:21 02/02/18 19:21 02/02/18 19:21 - Medications Medications: Current Medications Acetaminophen/Butalbital/Caffeine (Fioricet) 1 tab PO Q8H PRN PRN Reason: Migraine headache Artificial Tears (Refresh Opth Soln) 0.3 ml OD TID [facility] Last Admin: 02/02/18 23:37 Dose: 0.3 ml Aspirin (Ecotrin) 81 mg PO Q48H [facility] Last Admin: 02/01/18 15:53 Dose: 81 mg Atorvastatin Calcium (Lipitor) 40 mg PO HS [facility] Last Admin: 02/02/18 21:37 Dose: 40 mg Brimonidine Tartrate (Alphagan 0.2% Opht) 1 drop OS Q12 [facility] Last Admin: 02/02/18 21:36 Dose: 1 drop Cholecalciferol (Vitamin D) 1,000 intlu PO DAILY [facility] Last Admin: 02/02/18 09:28 Dose: 1,000 intlu Clopidogrel Bisulfate (Plavix) 75 mg PO DAILY [facility] Last Admin: 02/02/18 09:26 Dose: 75 mg Dextrose (Dextrose 50% Inj) 0 ml IV STAT PRN; Protocol PRN Reason: Hypoglycemia Protocol Dextrose (Glutose 15) 0 gm PO ONCE PRN; Protocol PRN Reason: Hypoglycemia Protocol Donepezil HCl (Aricept) 10 mg PO HS [facility] Last Admin: 02/02/18 21:37 Dose: 10 mg Enoxaparin Sodium (Lovenox) 40 mg SC DAILY [facility] PRN Reason: Protocol Last Admin: 02/02/18 09:26 Dose: 40 mg Glucagon (Glucagen Diagnostic Kit) 0 mg IM STAT PRN; Protocol PRN Reason: Hypoglycemia Protocol Home Med (Cyclosporine [Restasis]) 1 drop LEFTEYE Q12H [facility] Meropenem 1 gm/ Sodium (Chloride) 100 mls @ 100 mls/hr IVPB Q8H [facility] PRN Reason: Protocol Last Admin: 02/02/18 21:31 Dose: 100 mls/hr Insulin Human Lispro (Humalog) 0 units SC ACHS [facility] PRN Reason: Protocol Last Admin: 02/02/18 21:38 Dose: Not Given Latanoprost (Xalatan Opht) 1 drop OD [facility] Last Admin: 02/02/18 23:00 Dose: 1 drop Levothyroxine Sodium (Synthroid) 75 mcg PO DAILY@0630 [facility] Last Admin: 02/02/18 05:36 Dose: 75 mcg Meclizine HCl (Antivert) 25 mg PO TID PRN PRN Reason: Dizziness Memantine (Namenda) 10 mg PO Q12 [facility] Last Admin: 02/02/18 23:46 Dose: 10 mg Prednisolone Acetate (Pred Forte 1% Opht Susp) 1 drop OD QID [facility] Last Admin: 02/02/18 23:00 Dose: 1 drop Ramipril (Altace) 5 mg PO DAILY [facility] Last Admin: 02/02/18 09:29 Dose: 5 mg Risperidone (Risperdal Tab) 0.5 mg PO [facility] Last Admin: 02/02/18 23:00 Dose: 0.5 mg Sertraline HCl (Zoloft) 50 mg PO [facility] Last Admin: 02/02/18 23:00 Dose: 50 mg Tamsulosin HCl (Flomax) 0.4 mg PO [facility] Last Admin: 02/02/18 21:37 Dose: 0.4 mg Timolol Maleate (Timoptic 0.5% Ophth Soln) 1 drop OS Q12 [facility] Last Admin: 02/02/18 22:00 Dose: 1 drop - Labs Labs: 02/02/18 05:35 02/02/18 05:35 - Head Exam Head Exam: NORMAL INSPECTION - Eye Exam Eye Exam: Normal appearance - ENT Exam ENT Exam: Mucous Membranes Moist - Respiratory Exam Respiratory Exam: Clear to Ausculation Bilateral - Cardiovascular Exam Cardiovascular Exam: REGULAR RHYTHM - GI/Abdominal Exam GI & Abdominal Exam: Normal Bowel Sounds - Neurological Exam Neurological Exam: Awake Assessment and Plan (1) Urinary tract infection Status: Acute (2) Altered mental status Status: Acute (3) Diabetes mellitus type 2 in obese Status: Acute - Assessment and Plan (Free Text) Plan: Cont meds start Levemir at hs cont accucheck cont IV antibiotics
[2018-02-03] MEDS: Meropenem 1 GM in Sodium Chloride 0.9% 100 ML IVPB SCH ×2 (04:27→13:40)
[2018-02-03] MEDS: Levothyroxine 75 MCG TAB PO SCH (06:58)
[2018-02-03] MEDS: Insulin Lispro (humaLOG) 100 Units/ml Inj SC SCH ×3 (07:22→17:27)
[2018-02-03 08:13] VITALS: O2SAT 95
[2018-02-03] MEDS: Enoxaparin 40 mg Syringe SC SCH (10:18)
[2018-02-03] MEDS: Cholecalciferol 1,000 INTLU TAB PO SCH (10:19)
[2018-02-03] MEDS: Brimonidine 0.2% 50 DROP/5 ML BOTTLE OS SCH (10:20)
[2018-02-03] MEDS: PrednisoLONE 1% OPTH SUSP OD SCH ×3 (10:20→17:26)
[2018-02-03] MEDS: Lubricant Eye Drops UD OD SCH ×3 (10:21→17:27)
--- NOTE | 2018-02-03 11:12 | CP.PCM.PN ---
Subjective - Date & Time of Evaluation Date of Evaluation: 02/03/18 Time of Evaluation: 10:00 - Subjective Subjective: afeb on merrem iv rx in progress will need 14 days rx consider eval Objective - Vital Signs/Intake and Output Vital Signs (last 24 hours): Temp Pulse Resp BP Pulse Ox 97.5 F L 70 18 155/66 H 95 02/03/18 08:09 02/03/18 08:09 02/03/18 08:09 02/03/18 10:18 02/03/18 08:09 - Medications Medications: Current Medications Acetaminophen/Butalbital/Caffeine (Fioricet) 1 tab PO Q8H PRN PRN Reason: Migraine headache Artificial Tears (Refresh Opth Soln) 0.3 ml OD TID COUNT INCLUDES THE [facility] Last Admin: 02/03/18 10:21 Dose: 0.3 ml Aspirin (Ecotrin) 81 mg PO Q48H COUNT INCLUDES THE [facility] Last Admin: 02/03/18 10:18 Dose: 81 mg Atorvastatin Calcium (Lipitor) 40 mg PO HS COUNT INCLUDES THE [facility] Last Admin: 02/02/18 21:37 Dose: 40 mg Brimonidine Tartrate (Alphagan 0.2% Opht) 1 drop OS Q12 COUNT INCLUDES THE [facility] Last Admin: 02/03/18 10:20 Dose: 1 drop Cholecalciferol (Vitamin D) 1,000 intlu PO DAILY COUNT INCLUDES THE [facility] Last Admin: 02/03/18 10:19 Dose: 1,000 intlu Clopidogrel Bisulfate (Plavix) 75 mg PO DAILY COUNT INCLUDES THE [facility] Last Admin: 02/03/18 10:19 Dose: 75 mg Dextrose (Dextrose 50% Inj) 0 ml IV STAT PRN; Protocol PRN Reason: Hypoglycemia Protocol Dextrose (Glutose 15) 0 gm PO ONCE PRN; Protocol PRN Reason: Hypoglycemia Protocol Donepezil HCl (Aricept) 10 mg PO HS COUNT INCLUDES THE [facility] Last Admin: 02/02/18 21:37 Dose: 10 mg Glucagon (Glucagen Diagnostic Kit) 0 mg IM STAT PRN; Protocol PRN Reason: Hypoglycemia Protocol Home Med (Cyclosporine [Restasis]) 1 drop LEFTEYE Q12H COUNT INCLUDES THE [facility] Meropenem 1 gm/ Sodium (Chloride) 100 mls @ 100 mls/hr IVPB Q8H COUNT INCLUDES THE [facility] PRN Reason: Protocol Last Admin: 02/03/18 04:27 Dose: 100 mls/hr Insulin Detemir (Levemir) 10 units SC [facility] Last Admin: 02/03/18 00:30 Dose: 10 units Insulin Human Lispro (Humalog) 0 units SC [facility] PRN Reason: Protocol Last Admin: 02/03/18 07:22 Dose: 3 units Latanoprost (Xalatan Opht) 1 drop OD [facility] Last Admin: 02/02/18 23:00 Dose: 1 drop Levothyroxine Sodium (Synthroid) 75 mcg PO DAILY@0630 COUNT INCLUDES THE [facility] Last Admin: 02/03/18 06:58 Dose: 75 mcg Meclizine HCl (Antivert) 25 mg PO TID PRN PRN Reason: Dizziness Memantine (Namenda) 10 mg PO Q12 COUNT INCLUDES THE [facility] Last Admin: 02/03/18 10:19 Dose: 10 mg Prednisolone Acetate (Pred Forte 1% Opht Susp) 1 drop OD QID COUNT INCLUDES THE [facility] Last Admin: 02/03/18 10:20 Dose: 1 drop Ramipril (Altace) 5 mg PO DAILY COUNT INCLUDES THE [facility] Last Admin: 02/03/18 10:18 Dose: 5 mg Risperidone (Risperdal Tab) 0.5 mg PO [facility] Last Admin: 02/02/18 23:00 Dose: 0.5 mg Sertraline HCl (Zoloft) 50 mg PO [facility] Last Admin: 02/02/18 23:00 Dose: 50 mg Tamsulosin HCl (Flomax) 0.4 mg PO [facility] Last Admin: 02/02/18 21:37 Dose: 0.4 mg Timolol Maleate (Timoptic 0.5% Ophth Soln) 1 drop OS Q12 COUNT INCLUDES THE [facility] Last Admin: 02/03/18 10:21 Dose: 1 drop - Labs Labs: 02/02/18 05:35 02/02/18 05:35 - Constitutional Appears: Non-toxic, Confused, Chronically Ill - Head Exam Head Exam: NORMOCEPHALIC - Eye Exam Eye Exam: absent: Scleral icterus - ENT Exam ENT Exam: Mucous Membranes Dry - Neck Exam Neck Exam: absent: Lymphadenopathy - Respiratory Exam Respiratory Exam: Decreased Breath Sounds - Cardiovascular Exam Cardiovascular Exam: REGULAR RHYTHM - GI/Abdominal Exam GI & Abdominal Exam: Distended, Soft Assessment and Plan (1) Urinary tract infection Status: Acute (2) Abdominal pain Status: Acute
--- NOTE | 2018-02-03 13:46 | CP.PCM.DIS ---
Provider - Provider Date of Admission: 01/30/18 10:53 Attending physician: Morris Mcginnis MD Primary care physician: Dr. Madi Schroeder Consults: Infectious Disease Time Spent in preparation of Discharge (in minutes): 30 Diagnosis - Discharge Diagnosis (1) Urinary tract infection Status: Acute Hospital Course - Lab Results Lab Results: Micro Results 01/30/18 08:40 Blood Blood Culture - Preliminary NO GROWTH AFTER 4 DAYS 01/30/18 09:21 Urine,Catheterized Urine Culture - Final Escherichia Coli Most Recent Lab Values WBC 7.4 K/uL (4.8-10.8) D 02/02/18 05:35 RBC 3.24 Mil/uL (3.80-5.20) L 02/02/18 05:35 Hgb 9.6 g/dL (12.0-16.0) L 02/02/18 05:35 Hct 28.9 % (34.0-47.0) L 02/02/18 05:35 MCV 89.4 fl (81.0-99.0) 02/02/18 05:35 MCH 29.7 pg (27.0-31.0) 02/02/18 05:35 MCHC 33.2 g/dL (33.0-37.0) 02/02/18 05:35 RDW 14.4 % (11.5-14.5) 02/02/18 05:35 Plt Count 291 K/uL (130-400) 02/02/18 05:35 MPV 9.7 fl (7.2-11.7) 02/02/18 05:35 Neut % (Auto) 69.1 % (50.0-75.0) 02/02/18 05:35 Lymph % (Auto) 16.9 % (20.0-40.0) L 02/02/18 05:35 [place] % (Auto) 12.4 % (0.0-10.0) H 02/02/18 05:35 Eos % (Auto) 1.3 % (0.0-4.0) 02/02/18 05:35 Baso % (Auto) 0.3 % (0.0-2.0) 02/02/18 05:35 Neut # (Auto) 5.1 K/uL (1.8-7.0) 02/02/18 05:35 Lymph # (Auto) 1.3 K/uL (1.0-4.3) 02/02/18 05:35 [place] # (Auto) 0.9 K/uL (0.0-0.8) H 02/02/18 05:35 Eos # (Auto) 0.1 K/uL (0.0-0.7) 02/02/18 05:35 Baso # (Auto) 0.0 K/uL (0.0-0.2) 02/02/18 05:35 Neutrophils % (Manual) 81 % (42-75) H 01/30/18 08:40 Lymphocytes % (Manual) 10 % (20-50) L 01/30/18 08:40 Monocytes % (Manual) 9 % (0-10) 01/30/18 08:40 Platelet Estimate Normal (NORMAL) 01/30/18 08:40 Large Platelets Present 01/30/18 08:40 Anisocytosis (manual) Slight 01/30/18 08:40 Macrocytosis (manual) Slight 01/30/18 08:40 Tear Drop Cells Slight 01/30/18 08:40 Ovalocytes Moderate 01/30/18 08:40 pO2 38 mm/Hg (30-55) 01/30/18 08:55 VBG pH 7.37 (7.32-7.43) 01/30/18 08:55 VBG pCO2 54 mmHg (40-60) 01/30/18 08:55 VBG HCO3 27.7 mmol/L 01/30/18 08:55 VBG Total CO2 32.9 mmol/L (22-28) H 01/30/18 08:55 VBG O2 Sat (Calc) 69.4 % (40-65) H 01/30/18 08:55 VBG Base Excess 4.5 mmol/L (0.0-2.0) H 01/30/18 08:55 VBG Potassium 4.1 mmol/L (3.6-5.2) 01/30/18 08:55 Sodium 140.0 mmol/L (132-148) 01/30/18 08:55 Chloride 105.0 mmol/L (98-107) 01/30/18 08:55 Glucose 117 mg/dL (65-105) H 01/30/18 08:55 Lactate 1.7 mmol/L (0.7-2.1) 01/30/18 08:55 FiO2 21.0 % 01/30/18 08:55 Sodium 134 mmol/l (132-148) 02/02/18 05:35 Potassium 3.4 MMOL/L (3.6-5.0) L 02/02/18 05:35 Chloride 98 mmol/L (98-107) 02/02/18 05:35 Carbon Dioxide 29 mmol/L (22-30) 02/02/18 05:35 Anion Gap 10 (10-20) 02/02/18 05:35 BUN 15 mg/dl (7-17) 02/02/18 05:35 Creatinine 0.6 mg/dl (0.7-1.2) L 02/02/18 05:35 Est GFR ( Amer) > 60 02/02/18 05:35 Est GFR (Non-Af Amer) > 60 02/02/18 05:35 POC Glucose (mg/dL) 159 mg/dL (65-110) H 02/03/18 10:56 Random Glucose 251 mg/dL (65-105) H 02/02/18 05:35 Calcium 8.1 mg/dL (8.4-10.2) L 02/02/18 05:35 Total Bilirubin 0.3 mg/dl (0.2-1.3) 02/02/18 05:35 AST 23 U/L (14-36) 02/02/18 05:35 ALT 26 U/L (9-52) 02/02/18 05:35 Alkaline Phosphatase 76 U/L (38-126) 02/02/18 05:35 Troponin I < 0.0120 ng/mL (0.00-0.120) 01/30/18 08:40 Total Protein 5.6 G/DL (6.3-8.2) L 02/02/18 05:35 Albumin 2.6 g/dL (3.5-5.0) L 02/02/18 05:35 Globulin 3.0 gm/dL (2.2-3.9) 02/02/18 05:35 Albumin/Globulin Ratio 0.9 (1.0-2.1) L 02/02/18 05:35 Lipase 60 U/L (23-300) 01/30/18 08:40 TSH 3rd Generation 2.80 mIU/ML (0.46-4.68) 02/02/18 05:35 Prolactin 295.4 ng/mL (3.0-18.9) H 01/30/18 08:40 Venous Blood Potassium 4.1 mmol/L (3.6-5.2) 01/30/18 08:55 Urine Color Dorinda (YELLOW) 01/30/18 09:21 Urine Clarity Turbid (Clear) 01/30/18 09:21 Urine pH 5.0 (5.0-8.0) 01/30/18 09:21 Ur Specific [place] 1.015 (1.003-1.030) 01/30/18 09:21 Urine Protein 100 mg/dL (NEGATIVE) 01/30/18 09:21 Urine Glucose (UA) >=500 mg/dL (Normal) 01/30/18 09:21 Urine Ketones 20 mg/dL (NEGATIVE) 01/30/18 09:21 Urine Blood Negative (NEGATIVE) 01/30/18 09:21 Urine Nitrate Negative (NEGATIVE) 01/30/18 09:21 Urine Bilirubin Negative (NEGATIVE) 01/30/18 09:21 Urine Urobilinogen 4.0 mg/dL (0.2-1.0) H 01/30/18 09:21 Ur Leukocyte Esterase Large Ajay/uL (Negative) 01/30/18 09:21 Urine RBC (Auto) 30 /hpf (0-3) H 01/30/18 09:21 Urine WBC Clumps (Auto) Many /hpf (NONE) H 01/30/18 09:21 Urine Microscopic WBC 883 /hpf (0-5) H 01/30/18 09:21 Ur Squamous Epith Cells 1 /hpf (0-5) 01/30/18 09:21 Ur Renal Epithelial Cell 4 /hpf (0-3) H 01/30/18 09:21 Urine Bacteria Many (<OCC) H 01/30/18 09:21 - Hospital Course Hospital Course: 82 yo female with PMHx of IDDM, HTN, hypothyroidsm, CVA and dementia was admitted to [facility] telemetry floor with urinary tract infection. Was found to have WBC 30k and 800 WBC in urine, with foul smelling urine for several days prior to admission. Pt has had hx of UTI before; Dr. Morton was consulted for infectious disease specialist input. Given that pt has hx of ESBL, she was started on IV meropenem and will require it for 14 days. Home medications for chronic conditions restarted. Pt has remained stable during this admission, has remained afebrile, and white count has trended down to 7. Today, she is being discharged from telemetry floor, and will be admitted to TCU for continued antibiotics. Discharge Exam - Head Exam Head Exam: NORMOCEPHALIC - Respiratory Exam Respiratory Exam: NORMAL BREATHING PATTERN - Cardiovascular Exam Cardiovascular Exam: REGULAR RHYTHM - GI/Abdominal Exam GI & Abdominal Exam: Soft - Neurological Exam Neurological exam: Alert Discharge Plan - Discharge Medications Prescriptions: Meropenem [Merrem IV] 1 gm IV Q8 #30 pds - Follow Up Plan Condition: STABLE Disposition: REHAB FACILITY/REHAB UNIT Instructions: Urinary Tract Infection, Adult (DC) Referrals: Madi Schroeder MD [Family Provider] -
[2018-02-03 15:37] VITALS: BP 101/58; PULSE 64; RESP 20; TEMP 97.5
--- NOTE | 2018-02-10 13:10 | PQF ---
PROVIDER RESPONSE TEXT: Ams related to infectious process- uti in elderly. REVIEWER QUERY TEXT: Altered Mental Status - Underlying Cause A mental status change is documented in the Medical Record. Please specify the underlying cause Such as: -- Due to medication -- Cardiac condition: if yes please include the related diagnosis -- Electrolyte/metabolic imbalance -- Infectious process: if yes please include the related diagnosis -- Neurologic condition: if yes please include the related diagnosis -- Psychiatric condition: if yes please include the related diagnosis -- Respiratory condition: if yes please include the related diagnosis -- Other, please specify --Unable to determine ER notes include; Initial Impression: altered mental status r/o infection, dehydration, seizure hype rglycemia Clinical Impression: UTI H and P: 82 YO female with PMHx of IDDM, HTN, hypothyroidsm, CVA and dementia presented to [facility] ED af ter an episode of altered mental status as witnessed by her daughter who is at bedside to provide his tory. Pt has had similar episodes in the past with neuro workup. At the time that they got to ED, she was b ack to baseline. In ED, was found to have WBC 30 and 800 WBC in urine; suspected UTI. Daughter admits that for the past few days pt's urine has been malodorous. Pt has not had chest pain, dyspnea , fevers. Assessment : UTI 02/01 ID progress note: presented to [facility] ED after an episode of altered mental status In ED, was foun d to have WBC 30 and 800 WBC in urine; suspected UTI. 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
--- NOTE | 2018-02-10 13:10 | PQF ---
PROVIDER RESPONSE TEXT: Sepsis on admission secondary to uti , confirmed and treated Present on admission REVIEWER QUERY TEXT: Conflicting Documentation Clarification 2 queries as follows: 1. A single mention of the diagnosis of Sepsis appears in the record. Please clarify the diagnosis/d iagnoses. Please also document if the condition is: -- Confirmed and current -- Confirmed, treated and resolved -- Ruled out -- Other, please specify 2. If in agreement is Sepsis: Present on Admission? V/S tab: Temperature:99.6->98.8->98.5 Pulse:79->79->83->75 B/P:96/73->123/56->111/58->105/59 Respiration:14->16->16->17 WBC: 30.4->16.8->7.4 with a left shift 01/30: Urine culture: E-Coli 01/30: Blood culture: no growth preliminary x 3 days Prolactin: 295.4 (range: 3.0-18.9) ER: CC: Syncope Clinical Impression : UTI ; POA: None H and P: 82 YO female with PMHx of IDDM, HTN, hypothyroidsm, CVA and dementia presented to [facility] ED af ter an episode of altered mental status as witnessed by her daughter who is at bedside to provide his tory. Pt has had similar episodes in the past with neuro workup. At the time that they got to ED, she was b ack to baseline. In ED, was found to have WBC 30 and 800 WBC in urine; suspected UTI. Daughter admits that for the past few days pt's urine has been malodorous. Pt has not had chest pain, dyspnea , fevers. Assessment : UTI 01/30 ID consult:History of Present Illness: chart reviewed hx ESBL + UTI in past add merrem Assessment: (1) UTI: Acute (2) Abdominal pain : Acute Assessment: recurrernt UTI esbl+ CONT iv RX 02/01 ID progress note: presented to [facility] ED after an episode of altered mental status In ED, was foun d to have WBC 30 and 800 WBC in urine; suspected UTI. Assessment: recurrent UTI with sepsis secondary to ESBL in an elderly female with [facility] p karin will need min 14 days IV rx consider imaging and eval - may have neurogenic bladder with retention The patient's Clinical Indicators include: xx Query created by: Awilda Cruz on 02/02/2018 10:11 AM Electronically signed by: Morris Mcginnis MD 02/10/2018 1:06 PM
== END 2018-02-03 18:15 | DRG 872 ==
LOC: H.ER 07:16 → H.ERHOLD 10:53 → H.TEL 18:45
PROVIDERS: ADMIT Family Medicine; ATTEND Family Medicine
PROC: 05H533Z Insertion of Infusion Device into Right Subclavian Vein, Percutaneous Approach (ICD-10-PCS; principal; 2018-01-30)
DX: A41.9 Sepsis, unspecified organism (principal); N39.0 Urinary tract infection, site not specified; Z16.12 Extended spectrum beta lactamase (ESBL) resistance; E11.9 Type 2 diabetes mellitus without complications; Z79.4 Long term (current) use of insulin; I69.398 Other sequelae of cerebral infarction; H54.62 Unqualified visual loss, left eye, normal vision right eye; E03.9 Hypothyroidism, unspecified; G30.9 Alzheimer's disease, unspecified; F02.80 Dementia in other diseases classified elsewhere, unspecified severity, without behavioral disturbance, psychotic disturbance, mood disturbance, and anxiety; F32.9 Major depressive disorder, single episode, unspecified; B96.20 Unspecified Escherichia coli [E. coli] as the cause of diseases classified elsewhere; Z88.6 Allergy status to analgesic agent; Z88.3 Allergy status to other anti-infective agents; Z88.2 Allergy status to sulfonamides; F41.9 Anxiety disorder, unspecified; K29.70 Gastritis, unspecified, without bleeding; E78.00 Pure hypercholesterolemia, unspecified; E78.5 Hyperlipidemia, unspecified; G43.909 Migraine, unspecified, not intractable, without status migrainosus; I10 Essential (primary) hypertension

== ENCOUNTER 2018-02-03 14:36 | Inpatient (IN) | payer OTHER ==
[2018-02-03] MEDS ORDERED: Apap-Butalbital-Caffeine 325-50-40mg Tab PO PRN (18:51)
[2018-02-03] MEDS ORDERED: Patient's Own Med (Cyclosporine [Restasis] 1 DROP) LEFTEYE SCH (19:30)
[2018-02-03 20:11] VITALS: RESP 20
[2018-02-03] MEDS: Brimonidine 0.2% 50 DROP/5 ML BOTTLE OS SCH (21:30)
[2018-02-03] MEDS ORDERED: PrednisoLONE 1% OPTH SUSP OD SCH (22:00)
[2018-02-03] MEDS ORDERED: Latanoprost 0.005% Opht SOUTION OD SCH (22:00)
[2018-02-03] MEDS: Insulin Regular 100 units/ml SC SCH (22:00)
[2018-02-04] MEDS ORDERED: Patient's Own Med (Meropenem [Merrem Iv] 1 GM) IV SCH ×2 (01:00)
[2018-02-04] MEDS: Meropenem 1 GM in Sodium Chloride 0.9% 100 ML IVPB SCH ×3 (01:12→17:21)
[2018-02-04] MEDS: Levothyroxine 75 MCG TAB PO SCH (06:30)
[2018-02-04] MEDS: Insulin Regular 100 units/ml SC SCH ×4 (06:44→22:51)
[2018-02-04] MEDS: Brimonidine 0.2% 50 DROP/5 ML BOTTLE OS SCH ×2 (08:44→22:12)
[2018-02-04] MEDS: Cholecalciferol 1,000 INTLU TAB PO SCH (08:52)
[2018-02-04] MEDS: Lubricant Eye Drops UD OD SCH ×3 (09:00→17:29)
[2018-02-04] MEDS: PrednisoLONE 1% OPTH SUSP OS SCH ×5 (09:06→22:32)
--- NOTE | 2018-02-04 15:52 | CP.PCM.HP ---
<Fariba Hernandez - Last Filed: 02/04/18 18:23> History of Present Illness - History of Present Illness History of Present Illness: 82 yo F with PMHx of IDDM, HTN, hypothyroidsm, CVA and dementia, admitted to TCU to finish course of IV abx and for rehab therapy after recent admission to medical floor for UTI. Pt was found to have ESBL E. coli in urine; ID on board, and recommend 14 days merrem. Pt has not had chest pain, dyspnea, fevers. PMD: Madi Vera PMHx: IDDM type 2, HTN, hypothyroidism, CVA with b/l blindess, left side weakness, , diverticulitis, advanced dementia SurgHx: partial thyroidectomy, tonsillectomy FMHx: noncontributory SHx: denies tobacco/Etoh or drugs Allergies: sulfanamide antibiotics, iodine contrast, metformin; aspirin listed but pt takes at home and has taken in hospital before Seen this morning; no acute events overnight. Present on Admission - Present on Admission Any Indicators Present on Admission: No Review of Systems - Review of Systems Review of Systems: as per hpi Past Patient History - Infectious Disease Hx of Infectious Diseases: None - Tetanus Immunizations Tetanus Immunization: Unknown - Past Medical History & Family History Past Medical History?: Yes - Past Social History Smoking Status: Never Smoked - CARDIAC Hx Cardiac Disorders: Yes Hx Congestive Heart Failure: Yes Hx Hypercholesterolemia: Yes Hx Hypertension: Yes - PULMONARY Hx Pneumonia: Yes - NEUROLOGICAL Hx Neurological Disorder: Yes Hx Alzheimer's Disease: Yes Hx Dementia: Yes - HEENT Hx HEENT Problems: Yes Other/Comment: tonsillectomy, corneal transplant - RENAL Hx Chronic Kidney Disease: No - ENDOCRINE/METABOLIC Hx Diabetes Mellitus Type 2: Yes Hx Hypothyroidism: Yes - HEMATOLOGICAL/ONCOLOGICAL Hx Blood Disorders: Yes Hx AIDS: No Hx Anemia: Yes Hx Human Immunodeficiency Virus (HIV): No - INTEGUMENTARY Hx Dermatological Problems: No - MUSCULOSKELETAL/RHEUMATOLOGICAL Hx Arthritis: No - GASTROINTESTINAL Hx Diverticulitis: Yes (Diverticulosis) Hx Gastritis: Yes - GENITOURINARY/GYNECOLOGICAL Hx Genitourinary Disorders: Yes Hx Urinary Tract Infection: Yes Other/Comment: uterine prolapse - PSYCHIATRIC Hx Anxiety: Yes Hx Depression: Yes - SURGICAL HISTORY Hx Coronary Artery Bypass Graft: No Hx Tonsillectomy: Yes (partial thyroidectomy) - ANESTHESIA Hx Anesthesia: Yes Hx Anesthesia Reactions: Yes (HALLUCINATION, CONFUSION) Hx Malignant Hyperthermia: No Meds Allergies/Adverse Reactions: Allergies Allergy/AdvReac Type Severity Reaction Status Date / Time aspirin Allergy NAUSEA Verified 02/03/18 14:54 ciprofloxacin Allergy REDNESS Verified 02/03/18 14:54 Sulfa (Sulfonamide Allergy RASH Verified 02/03/18 14:54 Antibiotics) Iodinated Contrast- Oral and AdvReac VOMITING Verified 02/03/18 14:54 IV Dye metformin AdvReac DIARRHEA Verified 02/03/18 14:54 Physical Exam - Constitutional Appears: Chronically Ill - Respiratory Exam Respiratory Exam: NORMAL BREATHING PATTERN. absent: Respiratory Distress Additional comments: good movement somewhat diminished - Cardiovascular Exam Cardiovascular Exam: REGULAR RHYTHM - GI/Abdominal Exam GI & Abdominal Exam: Soft. absent: Tenderness - Extremities Exam Extremities exam: Positive for: normal inspection. Negative for: calf tenderness - Neurological Exam Neurological exam: Alert - Skin Skin Exam: Normal Color, Warm Results - Vital Signs Recent Vital Signs: Last Vital Signs Temp 98.2 F 02/04/18 09:28 Pulse 76 02/04/18 09:28 Resp 20 02/04/18 09:28 BP 127/59 L 02/04/18 09:28 Pulse Ox 94 L 02/04/18 09:28 - Labs Labs: Laboratory Results - last 24 hr 02/04/18 02/04/18 06:41 11:04 POC Glucose (mg/dL) 144 H 267 H Assessment & Plan (1) Infection due to ESBL-producing Escherichia coli Status: Acute (2) Urinary tract infection Status: Acute (3) Dementia Status: Chronic (4) Diabetes Status: Chronic (5) Hyperlipidemia Status: Chronic - Assessment and Plan (Free Text) Plan: - admited to TCU - ID consult; continue with merrem IV - resume home meds - regular diet - encourage PT/OT - scd, lovenox <Morris Mcginnis - Last Filed: 02/09/18 07:54> Results - Vital Signs Recent Vital Signs: Last Vital Signs Temp 97.7 F 02/08/18 22:04 Pulse 72 02/08/18 22:04 Resp 20 02/08/18 22:04 BP 146/65 02/08/18 22:04 Pulse Ox 97 02/08/18 22:04 - Labs Result Diagrams: 02/07/18 12:00 02/08/18 09:10 Labs: Laboratory Results - last 24 hr 02/08/18 09:10 Sodium 136 Potassium 3.9 Chloride 103 Carbon Dioxide 28 Anion Gap 9 L BUN 19 H Creatinine 0.8 Est GFR ( Amer) > 60 Est GFR (Non-Af Amer) > 60 Random Glucose 133 H Calcium 8.3 L Assessment & Plan - Assessment and Plan (Free Text) Plan: i was present during evaluation and discussed with Dr ashly smiley plans of care and tx. Morris Mcginnis M.D.
[2018-02-04] MEDS: Insulin Lispro Mix 75/25 100 units/ml (HumaLog) 10ml SC SCH (17:30)
[2018-02-04] MEDS: Latanoprost 0.005% Opht SOUTION OS SCH (22:23)
[2018-02-05] MEDS: Meropenem 1 GM in Sodium Chloride 0.9% 100 ML IVPB SCH ×3 (02:00→17:40)
[2018-02-05] MEDS: Levothyroxine 75 MCG TAB PO SCH (06:36)
[2018-02-05] MEDS: Insulin Regular 100 units/ml SC SCH ×4 (06:38→23:27)
[2018-02-05] MEDS: Brimonidine 0.2% 50 DROP/5 ML BOTTLE OS SCH ×2 (09:27→21:14)
[2018-02-05] MEDS: Insulin Lispro Mix 75/25 100 units/ml (HumaLog) 10ml SC SCH ×2 (09:30→17:37)
[2018-02-05] MEDS: PrednisoLONE 1% OPTH SUSP OS SCH ×4 (09:32→21:23)
[2018-02-05] MEDS: Cholecalciferol 1,000 INTLU TAB PO SCH (09:33)
[2018-02-05] MEDS: Lubricant Eye Drops UD OD SCH ×3 (09:50→17:34)
[2018-02-05] MEDS: Latanoprost 0.005% Opht SOUTION OS SCH (21:24)
[2018-02-06] MEDS: Meropenem 1 GM in Sodium Chloride 0.9% 100 ML IVPB SCH ×3 (00:33→17:39)
[2018-02-06] MEDS: Insulin Regular 100 units/ml SC SCH ×4 (08:11→22:13)
[2018-02-06] MEDS: Brimonidine 0.2% 50 DROP/5 ML BOTTLE OS SCH ×2 (08:55→21:41)
[2018-02-06] MEDS: Cholecalciferol 1,000 INTLU TAB PO SCH (08:59)
[2018-02-06] MEDS: Insulin Lispro Mix 75/25 100 units/ml (HumaLog) 10ml SC SCH ×2 (09:03→17:41)
[2018-02-06] MEDS: PrednisoLONE 1% OPTH SUSP OS SCH ×4 (09:04→21:25)
[2018-02-06] MEDS: Lubricant Eye Drops UD OD SCH ×3 (09:05→17:43)
--- NOTE | 2018-02-06 20:33 | CP.PCM.CON ---
History of Present Illness - History of Present Illness History of Present Illness: 82 YO female with PMHx of IDDM, HTN, hypothyroidsm, CVA and dementia presented to [facility] ED after an episode of altered mental status as witnessed by her daughter In ED, was found to have WBC 30 and 800 WBC in urine; suspected UTI. Found to have ESBL E Coli UTI Started on Merrem nEEDS 14 DAYS RX ADMITTED TO tcu PMHx: IDDM type 2, HTN, hypothyroidism, CVA with b/l blindess, left side weakness, , diverticulitis, advanced dementia SurgHx: partial thyroidectomy, tonsillectomy FMHx: noncontributory SHx: denies tobacco/Etoh or drugs Allergies: sulfanamide antibiotics, iodine contrast, metformin; aspirin listed but pt takes at home and has taken in hospital before Review of Systems - Constitutional Constitutional: As Per HPI - EENT Eyes: absent: As Per HPI, Blind Spots, Blurred Vision, Change in Vision, Decreased Night Vision, Diplopia, Discharge, Dry Eye, Exophthalmos, Floaters, Irritation, Itchy Eyes, Loss of Peripheral Vision, Pain, Photophobia, Requires Corrective Lenses, Sees Flashes, Spots in Vision, Tunnel Vision, Other Visual Disturbances, Loss of Vision, Other Ears: absent: As Per HPI, Decreased Hearing, Ear Discharge, Ear Pain, Tinnitus, Abnormal Hearing, Disequilibrium, Dizziness, Other Nose/Mouth/Throat: absent: As Per HPI, Epistaxis, Nasal Congestion, Nasal Discharge, Nasal Obstruction, Nasal Trauma, Nose Pain, Post Nasal Drip, Sinus Pain, Sinus Pressure, Bleeding Gums, Change in Voice, Dental Pain, Dry Mouth, Dysphagia, Halitosis, Hoarsness, Lip Swelling, Mouth Lesions, Mouth Pain, Odynophagia, Sore Throat, Throat Swelling, Tongue Swelling, Facial Pain, Neck Pain, Neck Mass, Other - Breasts Breasts: absent: As Per HPI, Change in Shape, Mass, Pain, Nipple Discharge, Nipple Inversion, Skin Changes, Swelling, Other - Cardiovascular Cardiovascular: absent: As Per HPI, Acrocyanosis, Chest Pain, Chest Pain at Rest , Chest Pain with Activity, Claudication, Diaphoresis, Dyspnea, Dyspnea on Exertion, Edema, Irregular Heart Rhythm, Pain Radiating to Arm/Neck/Jaw, Leg Edema, Leg Ulcers, Lightheadedness, Orthopnea, Palpitations, Paroxysmal Nocturnal Dyspnea, Pedal Edema, Radiating Pain, Rapid Heart Rate, Slow Heart Rate, Syncope, Other - Respiratory Respiratory: absent: As Per HPI, Cough, Dyspnea, Hemoptysis, Dyspnea on Exertion , Wheezing, Snoring, Stridor, Pain on Inspiration, Chest Congestion, Excessive Mucous Production, Change in Mucous Color, Pain with Coughing, Other - Gastrointestinal Gastrointestinal: absent: As Per HPI, Abdominal Pain, Belching, Bloating, Change in Bowel Habits, Change in Stool Character, Coffee Ground Emesis, Constipation, Cramping, Diarrhea, Dyspepsia, Dysphagia, Early Satiety, Excessive Flatus, Fecal Incontinence, Heartburn, Hematemesis, Hematochezia, Loose Stools, Melena, Nausea, Odynophagia, Temesmus, Vomiting, Other - Genitourinary Genitourinary: As Per HPI - Reproductive: Female Reproductive:Female: absent: As Per HPI, Amenorrhea, Amenorrhea/ Control, Currently Menstual, Cycle <21 Days, Cycle >35 Days, Cycle Variable, Menses 1-7 Days, Menses >/= 8 Days, Menses Variable, Cycle > 4 Weeks Between, No Menses for 6 Months, Heavy Menses, Light Menses, Normal Menses, Spotting Between Cycles , S/P Hysterectomy, Menopausal, Post Menopausal, Premenarche, Abnormal Vaginal Bleeding, Dysmenorrhea, Dyspareunia, Genital Lesions, Genital Pruritis, Pelvic Pain, Prolapse Symptoms, Sexual Dysfunction, Vaginal Discharge, Vaginal Dryness , Vaginal Odor, Vaginal Pruritis, Other - Menstruation Menstruation: absent: As Per HPI, Amenorrhea, Amenorrhea/ Control, Currently Menstual, Cycle <21 Days, Cycle >35 Days, Cycle Variable, Menses 1-7 Days, Menses >/= 8 Days, Menses Variable, Cycle > 4 Weeks Between, No Menses for 6 Months, Heavy Menses, Light Menses, Normal Menses, Spotting Between Cycles , S/P Hysterectomy, Menopausal, Post Menopausal, Premenarche, Abnormal Vaginal Bleeding, Dysmenorrhea, Other - Musculoskeletal Musculoskeletal: absent: As Per HPI, Abnormal Gait, Arthralgias, Atrophy, Back Pain, Deformity, Joint Swelling, Limited Range of Motion, Loss of Height, Muscle Cramps, Muscle Weakness, Myalgias, Neck Pain, Numbness, Radiating Pain into Limb, Stiffness, Tingling, Other - Integumentary Integumentary: absent: As Per HPI, Acne, Alopecia, Bleeding Lesions, Change in Hair, Change in Nails, Change in Pigmentation, Changing Lesions, Dry Skin, Erythema, Furuncle, Hirsutism, Lesions, New Lesions, Non-Healing Lesions, Photosensitivity, Pruritus, Rash, Skin Pain, Skin Ulcer, Sores, Striae, Swelling , Unusual Bruising, Wounds, Jaundice, Other - Neurological Neurological: absent: As Per HPI, Abnormal Gait, Abnormal Hearing, Abnormal Movements, Abnormal Speech, Behavioral Changes, Burning Sensations, Confusion, Convulsions, Disequilibrium, Dizziness, Numbness, Focal Weakness, Frequent Falls , Headaches, Lack of Coordination, Loss of Vision, Memory Loss, Paresthesias, Radicular Pain, Restless Legs, Sensory Deficit, Syncope, Tingling, Tremor, Vertigo, Weakness, Other Visual Disturbances, Other - Psychiatric Psychiatric: absent: As Per HPI, Abnormal Sleep Pattern, Anhedonia, Anxiety, Auditory Hallucinations, Behavioral Changes, Change in Appetite, Change in Libido, Confusion, Depression, Difficulty Concentrating, Hallucinations, Homicidal Ideation, Hopelessness, Irritability, Memory Loss, Mood Swings, Panic Attacks, Paranoia, Suicidal Ideation, Visual Hallucinations, Tactile Hallucinations, Other - Endocrine Endocrine: absent: As Per HPI, Change in Body Appearance, Change in Libido, Cold Intolorance, Deepening of Voice, Excessive Sweating, Fatigue, Flushing, Heat Intolorance, Increase in Ring/Shoe/Hat Size, Palpitations, Polydipsia, Polyphagia, Polyuria, Other - Hematologic/Lymphatic Hematologic: absent: As Per HPI, Easy Bleeding, Easy Bruising, Lymphadenopathy, Other Past Patient History - Infectious Disease Hx of Infectious Diseases: None - Tetanus Immunizations Tetanus Immunization: Unknown - Past Medical History & Family History Past Medical History?: Yes - Past Social History Smoking Status: Never Smoked - CARDIAC Hx Cardiac Disorders: Yes Hx Congestive Heart Failure: Yes Hx Hypercholesterolemia: Yes Hx Hypertension: Yes - PULMONARY Hx Pneumonia: Yes - NEUROLOGICAL Hx Neurological Disorder: Yes Hx Alzheimer's Disease: Yes Hx Dementia: Yes - HEENT Hx HEENT Problems: Yes Other/Comment: tonsillectomy, corneal transplant - RENAL Hx Chronic Kidney Disease: No - ENDOCRINE/METABOLIC Hx Diabetes Mellitus Type 2: Yes Hx Hypothyroidism: Yes - HEMATOLOGICAL/ONCOLOGICAL Hx Blood Disorders: Yes Hx AIDS: No Hx Anemia: Yes Hx Human Immunodeficiency Virus (HIV): No - INTEGUMENTARY Hx Dermatological Problems: No - MUSCULOSKELETAL/RHEUMATOLOGICAL Hx Arthritis: No - GASTROINTESTINAL Hx Diverticulitis: Yes (Diverticulosis) Hx Gastritis: Yes - GENITOURINARY/GYNECOLOGICAL Hx Genitourinary Disorders: Yes Hx Urinary Tract Infection: Yes Other/Comment: uterine prolapse - PSYCHIATRIC Hx Anxiety: Yes Hx Depression: Yes - SURGICAL HISTORY Hx Coronary Artery Bypass Graft: No Hx Tonsillectomy: Yes (partial thyroidectomy) - ANESTHESIA Hx Anesthesia: Yes Hx Anesthesia Reactions: Yes (HALLUCINATION, CONFUSION) Hx Malignant Hyperthermia: No Meds Allergies/Adverse Reactions: Allergies Allergy/AdvReac Type Severity Reaction Status Date / Time aspirin Allergy NAUSEA Verified 02/03/18 14:54 ciprofloxacin Allergy REDNESS Verified 02/03/18 14:54 Sulfa (Sulfonamide Allergy RASH Verified 02/03/18 14:54 Antibiotics) Iodinated Contrast- Oral and AdvReac VOMITING Verified 02/03/18 14:54 IV Dye metformin AdvReac DIARRHEA Verified 02/03/18 14:54 - Medications Medications: Current Medications Acetaminophen/Butalbital/Caffeine (Fioricet) 1 tab PO Q8H PRN PRN Reason: Migraine headache Artificial Tears (Refresh Opth Soln) 0.3 ml OD TID [facility] Last Admin: 02/06/18 17:43 Dose: 0.3 ml Aspirin (Ecotrin) 81 mg PO Q48H [facility] Last Admin: 02/05/18 18:19 Dose: 81 mg Atorvastatin Calcium (Lipitor) 40 mg PO HS [facility] Last Admin: 02/05/18 21:16 Dose: 40 mg Brimonidine Tartrate (Alphagan 0.2% Opht) 1 drop OS Q12 [facility] Last Admin: 02/06/18 08:55 Dose: 1 u Cholecalciferol (Vitamin D) 1,000 intlu PO DAILY [facility] Last Admin: 02/06/18 08:59 Dose: 1,000 intlu Clopidogrel Bisulfate (Plavix) 75 mg PO DAILY [facility] Last Admin: 02/06/18 08:57 Dose: 75 mg Donepezil HCl (Aricept) 10 mg PO HS [facility] Last Admin: 02/05/18 21:18 Dose: 10 mg Meropenem 1 gm/ Sodium (Chloride) 100 mls @ 100 mls/hr IVPB Q8 [facility] Last Admin: 02/06/18 17:39 Dose: 100 mls/hr Insulin Human Regular (Humulin R) 0 units SC ACHS [facility] PRN Reason: Protocol Last Admin: 02/06/18 17:41 Dose: 1 u Insulin Lispro Protam/Lispro Human (Humalog Mix 75/25) 5 units SC BID [facility] Last Admin: 02/06/18 17:41 Dose: 5 units Lactulose (Enulose) 20 gm PO BID PRN PRN Reason: Constipation Last Admin: 02/05/18 18:18 Dose: 20 gm Latanoprost (Xalatan Opht) 1 drop OS HS [facility] Last Admin: 02/05/18 21:24 Dose: 1 drop Levothyroxine Sodium (Synthroid) 75 mcg PO DAILY@0630 [facility] Last Admin: 02/05/18 06:36 Dose: Not Given Meclizine HCl (Antivert) 25 mg PO TID PRN PRN Reason: Dizziness Memantine (Namenda) 10 mg PO Q12 [facility] Last Admin: 02/06/18 08:58 Dose: 10 mg Prednisolone Acetate (Pred Forte 1% Opht Susp) 1 drop OS QID [facility] Last Admin: 02/06/18 17:42 Dose: 1 u Ramipril (Altace) 5 mg PO DAILY [facility] Last Admin: 02/06/18 08:58 Dose: 5 mg Risperidone (Risperdal Tab) 0.5 mg PO [facility] Last Admin: 02/05/18 21:17 Dose: 0.5 mg Sertraline HCl (Zoloft) 50 mg PO [facility] Last Admin: 02/05/18 21:16 Dose: 50 mg Sitagliptin Phosphate (Januvia) 100 mg PO DAILY [facility] Last Admin: 02/06/18 08:56 Dose: 100 mg Tamsulosin HCl (Flomax) 0.4 mg PO [facility] Last Admin: 02/05/18 21:16 Dose: 0.4 mg Timolol Maleate (Timoptic 0.5% Ophth Soln) 1 drop OS Q12 [facility] Last Admin: 02/06/18 09:05 Dose: 1 u Physical Exam - Constitutional Appears: Non-toxic, Confused, Chronically Ill - Head Exam Head Exam: NORMOCEPHALIC - Eye Exam Eye Exam: PERRL - ENT Exam ENT Exam: Mucous Membranes Dry - Neck Exam Neck exam: Negative for: Lymphadenopathy - Respiratory Exam Respiratory Exam: Decreased Breath Sounds, Rhonchi - Cardiovascular Exam Cardiovascular Exam: REGULAR RHYTHM, +S1, +S2 - GI/Abdominal Exam GI & Abdominal Exam: Diminished Bowel Sounds, Soft. absent: Tenderness - Rectal Exam Rectal Exam: Deferred - Exam Exam: NORMAL INSPECTION - Extremities Exam Extremities exam: Negative for: pedal edema - Back Exam Back exam: absent: CVA tenderness (L), CVA tenderness (R) - Neurological Exam Neurological exam: Alert, Altered, CN II-XII Intact - Psychiatric Exam Psychiatric exam: Depressed - Skin Skin Exam: Dry Results - Vital Signs Recent Vital Signs: Last Vital Signs Temp 97.0 F L 02/06/18 19:43 Pulse 76 02/06/18 19:43 Resp 20 02/06/18 19:43 BP 134/58 L 02/06/18 19:43 Pulse Ox 96 02/06/18 19:43 - Labs Labs: Laboratory Results - last 24 hr 02/05/18 02/06/18 02/06/18 20:55 06:09 11:30 POC Glucose (mg/dL) 235 H 197 H 231 H 02/06/18 16:05 POC Glucose (mg/dL) 191 H Assessment & Plan (1) ESBL (extended spectrum beta-lactamase) producing bacteria infection Status: Acute (2) Intracervical pessary Status: Acute (3) Vaginal pessary in situ Status: Acute (4) Vaginal pessary present Status: Acute - Assessment and Plan (Free Text) Assessment: CONT IV RX FOR MIN 14 DAYS CONSIDER EVAL FOR PESSARY IN SITU FOR 10 YEARS PER DAUGHTER
[2018-02-06] MEDS: Latanoprost 0.005% Opht SOUTION OS SCH (21:38)
[2018-02-07] MEDS: Meropenem 1 GM in Sodium Chloride 0.9% 100 ML IVPB SCH ×2 (00:28→20:09)
[2018-02-07] MEDS: Levothyroxine 75 MCG TAB PO SCH (05:42)
[2018-02-07] MEDS: Insulin Regular 100 units/ml SC SCH ×4 (06:51→22:24)
[2018-02-07] MEDS: Brimonidine 0.2% 50 DROP/5 ML BOTTLE OS SCH ×2 (08:19→20:18)
[2018-02-07] MEDS: Insulin Lispro Mix 75/25 100 units/ml (HumaLog) 10ml SC SCH ×2 (08:21→17:35)
[2018-02-07] MEDS: PrednisoLONE 1% OPTH SUSP OS SCH ×4 (08:24→21:10)
[2018-02-07] MEDS: Lubricant Eye Drops UD OD SCH ×3 (08:27→17:38)
[2018-02-07] MEDS: Cholecalciferol 1,000 INTLU TAB PO SCH (08:28)
[2018-02-07 12:15] LABS: BASO # 0.1 K/uL (0.0-0.2); BASO % 0.9 % (0.0-2.0); EOS # 0.8 K/uL (0.0-0.7); EOS % 9.9 % (0.0-4.0); HEMOGLOBIN 9.3 g/dL (12.0-16.0); LYMPH # 1.9 K/uL (1.0-4.3); LYMPH % 24.3 % (20.0-40.0); MEAN CELL VOLUME 88.5 fl (81.0-99.0); MEAN CORPUSCULAR HEMOGLOBIN 29.9 pg (27.0-31.0); MEAN CORPUSCULAR HGB CONC 33.8 g/dL (33.0-37.0); MEAN PLATELET VOLUME 9.3 fl (7.2-11.7); MONO # 0.9 K/uL (0.0-0.8); MONO % 11.2 % (0.0-10.0); NEUT # 4.2 K/uL (1.8-7.0); NEUT % 53.7 % (50.0-75.0); RBC 3.11 Mil/uL (3.80-5.20); RED CELL DISTRIBUTION WIDTH 14.4 % (11.5-14.5); WHITE BLOOD COUNT 7.9 K/uL (4.8-10.8)
[2018-02-07 12:36] LABS: ALB/GLOB RATIO 0.8 (1.0-2.1); ALBUMIN 2.4 g/dL (3.5-5.0); ALT/SGPT 24 U/L (9-52); AST/SGOT 29 U/L (14-36); BLOOD UREA NITROGEN 19 mg/dl (7-17); CALCIUM 8.1 mg/dL (8.4-10.2); GFR NON-AFRICAN AMERICAN > 60
[2018-02-07] MEDS: Potassium Chloride 20 mEq ER Tab PO SCH (16:52)
[2018-02-07] MEDS: Potassium CL 10mEq/100ml 100 ML IVPB SCH ×2 (16:54→17:36)
[2018-02-07] MEDS: Latanoprost 0.005% Opht SOUTION OS SCH (21:12)
[2018-02-08] MEDS: Meropenem 1 GM in Sodium Chloride 0.9% 100 ML IVPB SCH ×3 (04:17→21:39)
[2018-02-08] MEDS: Levothyroxine 75 MCG TAB PO SCH (05:50)
[2018-02-08] MEDS: Insulin Regular 100 units/ml SC SCH ×4 (07:02→21:39)
[2018-02-08 09:39] LABS: BLOOD UREA NITROGEN 19 mg/dl (7-17); CALCIUM 8.3 mg/dL (8.4-10.2); GFR NON-AFRICAN AMERICAN > 60
[2018-02-08] MEDS: Insulin Lispro Mix 75/25 100 units/ml (HumaLog) 10ml SC SCH ×2 (09:42→16:45)
[2018-02-08] MEDS: Lubricant Eye Drops UD OD SCH ×3 (09:43→16:46)
[2018-02-08] MEDS: Brimonidine 0.2% 50 DROP/5 ML BOTTLE OS SCH ×2 (09:44→21:32)
[2018-02-08] MEDS: PrednisoLONE 1% OPTH SUSP OS SCH ×4 (09:47→21:33)
[2018-02-08] MEDS: Potassium Chloride 20 mEq ER Tab PO SCH (09:51)
[2018-02-08] MEDS: Cholecalciferol 1,000 INTLU TAB PO SCH (09:53)
--- NOTE | 2018-02-08 12:08 | CP.PCM.PN ---
Subjective - Date & Time of Evaluation Date of Evaluation: 02/08/18 Time of Evaluation: 08:00 - Subjective Subjective: afebrile confused nad Objective - Vital Signs/Intake and Output Vital Signs (last 24 hours): Temp Pulse Resp BP Pulse Ox 98.0 F 70 20 121/68 97 02/08/18 07:56 02/08/18 07:56 02/08/18 07:56 02/08/18 09:52 02/08/18 07:56 - Medications Medications: Current Medications Acetaminophen/Butalbital/Caffeine (Fioricet) 1 tab PO Q8H PRN PRN Reason: Migraine headache Artificial Tears (Refresh Opth Soln) 0.3 ml OD TID [facility] Last Admin: 02/08/18 09:43 Dose: 0.3 ml Aspirin (Ecotrin) 81 mg PO Q48H [facility] Last Admin: 02/07/18 18:25 Dose: 81 mg Atorvastatin Calcium (Lipitor) 40 mg PO HS [facility] Last Admin: 02/07/18 21:21 Dose: Not Given Brimonidine Tartrate (Alphagan 0.2% Opht) 1 drop OS Q12 [facility] Last Admin: 02/08/18 09:44 Dose: 1 drop Cholecalciferol (Vitamin D) 1,000 intlu PO DAILY [facility] Last Admin: 02/08/18 09:53 Dose: 1,000 intlu Clopidogrel Bisulfate (Plavix) 75 mg PO DAILY [facility] Last Admin: 02/08/18 09:52 Dose: 75 mg Donepezil HCl (Aricept) 10 mg PO HS [facility] Last Admin: 02/07/18 21:21 Dose: Not Given Meropenem 1 gm/ Sodium (Chloride) 100 mls @ 100 mls/hr IVPB Q8@0500,1300,2100 [facility] PRN Reason: Protocol Last Admin: 02/08/18 04:17 Dose: 100 mls/hr Insulin Human Regular (Humulin R) 0 units SC ACHS [facility] PRN Reason: Protocol Last Admin: 02/08/18 07:02 Dose: Not Given Insulin Lispro Protam/Lispro Human (Humalog Mix 75/25) 5 units SC BID [facility] Last Admin: 02/08/18 09:42 Dose: 5 units Lactulose (Enulose) 20 gm PO BID PRN PRN Reason: Constipation Last Admin: 02/08/18 09:43 Dose: 20 gm Latanoprost (Xalatan Opht) [address] [facility] Last Admin: 02/07/18 21:12 Dose: 1 drop Levothyroxine Sodium (Synthroid) 75 mcg PO DAILY@0630 [facility] Last Admin: 02/08/18 05:50 Dose: 75 mcg Meclizine HCl (Antivert) 25 mg PO TID PRN PRN Reason: Dizziness Memantine (Namenda) 10 mg PO Q12 [facility] Last Admin: 02/08/18 09:50 Dose: 10 mg Potassium Chloride (K-Dur 20 Meq Er Tab) 20 meq PO DAILY [facility] Last Admin: 02/08/18 09:51 Dose: 20 meq Prednisolone Acetate (Pred Forte 1% Opht Susp) 1 drop OS QID [facility] Last Admin: 02/08/18 09:47 Dose: 1 drop Ramipril (Altace) 5 mg PO DAILY [facility] Last Admin: 02/08/18 09:52 Dose: 5 mg Risperidone (Risperdal Tab) 0.[address] [facility] Last Admin: 02/07/18 21:21 Dose: Not Given Sertraline HCl (Zoloft) [address] [facility] Last Admin: 02/07/18 21:20 Dose: Not Given Sitagliptin Phosphate (Januvia) 100 mg PO DAILY [facility] Last Admin: 02/08/18 09:49 Dose: 100 mg Tamsulosin HCl (Flomax) 0.[address] [facility] Last Admin: 02/07/18 21:21 Dose: Not Given Timolol Maleate (Timoptic 0.5% Ophth Soln) 1 drop OS Q12 [facility] Last Admin: 02/08/18 09:47 Dose: 1 drop - Labs Labs: 02/07/18 12:00 02/08/18 09:10 - Constitutional Appears: Non-toxic, Chronically Ill - Head Exam Head Exam: NORMOCEPHALIC - Eye Exam Eye Exam: PERRL - ENT Exam ENT Exam: Mucous Membranes Dry - Neck Exam Neck Exam: absent: Lymphadenopathy - Respiratory Exam Respiratory Exam: Decreased Breath Sounds - Cardiovascular Exam Cardiovascular Exam: REGULAR RHYTHM - GI/Abdominal Exam GI & Abdominal Exam: Distended, Soft - Rectal Exam Rectal Exam: Deferred - Exam Exam: NORMAL INSPECTION - Extremities Exam Extremities Exam: absent: Pedal Edema - Back Exam Back Exam: absent: CVA tenderness (L), CVA tenderness (R) - Neurological Exam Neurological Exam: Altered, Awake Assessment and Plan (1) ESBL (extended spectrum beta-lactamase) producing bacteria infection Status: Acute (2) Intracervical pessary Status: Acute (3) Vaginal pessary in situ Status: Acute (4) Vaginal pessary present Status: Acute - Assessment and Plan (Free Text) Assessment: cont rrx for ESBL x14 days
[2018-02-08] MEDS: Latanoprost 0.005% Opht SOUTION OS SCH (21:51)
[2018-02-09] MEDS: Meropenem 1 GM in Sodium Chloride 0.9% 100 ML IVPB SCH ×3 (04:04→21:45)
[2018-02-09] MEDS ORDERED: Meropenem 500 MG in Sodium Chloride 0.9% 100 ML IVPB SCH (05:00)
[2018-02-09] MEDS: Levothyroxine 75 MCG TAB PO SCH ×2 (05:57→05:58)
[2018-02-09] MEDS: Insulin Regular 100 units/ml SC SCH ×4 (06:34→21:52)
--- NOTE | 2018-02-09 07:57 | CP.PCM.PN ---
Subjective - Date & Time of Evaluation Date of Evaluation: 02/05/18 Time of Evaluation: 10:30 - Subjective Subjective: Patient is fairly stable Has no fever Has no chest pain or SOB. Objective - Vital Signs/Intake and Output Vital Signs (last 24 hours): Temp Pulse Resp BP Pulse Ox 97.7 F 72 20 146/65 97 02/08/18 22:04 02/08/18 22:04 02/08/18 22:04 02/08/18 22:04 02/08/18 22:04 - Medications Medications: Current Medications Acetaminophen/Butalbital/Caffeine (Fioricet) 1 tab PO Q8H PRN PRN Reason: Migraine headache Artificial Tears (Refresh Opth Soln) 0.3 ml OD TID [facility] Last Admin: 02/08/18 16:46 Dose: 0.3 ml Aspirin (Ecotrin) 81 mg PO Q48H [facility] Last Admin: 02/07/18 18:25 Dose: 81 mg Atorvastatin Calcium (Lipitor) 40 mg PO HS [facility] Last Admin: 02/08/18 21:32 Dose: 40 mg Brimonidine Tartrate (Alphagan 0.2% Opht) 1 drop OS Q12 [facility] Last Admin: 02/08/18 21:32 Dose: 1 drop Cholecalciferol (Vitamin D) 1,000 intlu PO DAILY [facility] Last Admin: 02/08/18 09:53 Dose: 1,000 intlu Clopidogrel Bisulfate (Plavix) 75 mg PO DAILY [facility] Last Admin: 02/08/18 09:52 Dose: 75 mg Donepezil HCl (Aricept) 10 mg PO HS [facility] Last Admin: 02/08/18 21:50 Dose: 10 mg Glipizide (Glucotrol Xl) 2.5 mg PO BRK [facility] Meropenem 1 gm/ Sodium (Chloride) 100 mls @ 100 mls/hr IVPB Q8@0500,1300,2100 [facility] PRN Reason: Protocol Last Admin: 02/09/18 04:04 Dose: 100 mls/hr Insulin Human Regular (Humulin R) 0 units SC ACHS [facility] PRN Reason: Protocol Last Admin: 02/09/18 06:34 Dose: 1 unit Insulin Lispro Protam/Lispro Human (Humalog Mix 75/25) 5 units SC BID [facility] Last Admin: 02/08/18 16:45 Dose: 5 units Lactulose (Enulose) 20 gm PO BID PRN PRN Reason: Constipation Last Admin: 02/08/18 09:43 Dose: 20 gm Latanoprost (Xalatan Opht) 1 drop OS HS [facility] Last Admin: 02/08/18 21:51 Dose: 1 drop Levothyroxine Sodium (Synthroid) 75 mcg PO DAILY@0630 [facility] Last Admin: 02/09/18 05:58 Dose: 75 mcg Meclizine HCl (Antivert) 25 mg PO TID PRN PRN Reason: Dizziness Memantine (Namenda) 10 mg PO Q12 [facility] Last Admin: 02/08/18 21:33 Dose: 10 mg Potassium Chloride (K-Dur 20 Meq Er Tab) 20 meq PO DAILY [facility] Last Admin: 02/08/18 09:51 Dose: 20 meq Prednisolone Acetate (Pred Forte 1% Opht Susp) 1 drop OS QID [facility] Last Admin: 02/08/18 21:33 Dose: 1 drop Ramipril (Altace) 5 mg PO DAILY [facility] Last Admin: 02/08/18 09:52 Dose: 5 mg Risperidone (Risperdal Tab) 0.5 mg PO [facility] Last Admin: 02/08/18 21:36 Dose: 0.5 mg Sertraline HCl (Zoloft) 50 mg PO [facility] Last Admin: 02/08/18 21:34 Dose: 50 mg Sitagliptin Phosphate (Januvia) 100 mg PO DAILY [facility] Last Admin: 02/08/18 09:49 Dose: 100 mg Tamsulosin HCl (Flomax) 0.4 mg PO [facility] Last Admin: 02/08/18 21:37 Dose: 0.4 mg Timolol Maleate (Timoptic 0.5% Ophth Soln) 1 drop OS Q12 [facility] Last Admin: 02/08/18 21:35 Dose: 1 drop - Labs Labs: 02/07/18 12:00 02/08/18 09:10
--- NOTE | 2018-02-09 07:58 | CP.PCM.PN ---
Subjective - Date & Time of Evaluation Date of Evaluation: 02/07/18 Time of Evaluation: 11:00 - Subjective Subjective: Patient is stable On IV antibiotics has no fever. Objective - Vital Signs/Intake and Output Vital Signs (last 24 hours): Temp Pulse Resp BP Pulse Ox 97.7 F 72 20 146/65 97 02/08/18 22:04 02/08/18 22:04 02/08/18 22:04 02/08/18 22:04 02/08/18 22:04 - Medications Medications: Current Medications Acetaminophen/Butalbital/Caffeine (Fioricet) 1 tab PO Q8H PRN PRN Reason: Migraine headache Artificial Tears (Refresh Opth Soln) 0.3 ml OD TID [facility] Last Admin: 02/08/18 16:46 Dose: 0.3 ml Aspirin (Ecotrin) 81 mg PO Q48H [facility] Last Admin: 02/07/18 18:25 Dose: 81 mg Atorvastatin Calcium (Lipitor) 40 mg PO HS [facility] Last Admin: 02/08/18 21:32 Dose: 40 mg Brimonidine Tartrate (Alphagan 0.2% Opht) 1 drop OS Q12 [facility] Last Admin: 02/08/18 21:32 Dose: 1 drop Cholecalciferol (Vitamin D) 1,000 intlu PO DAILY [facility] Last Admin: 02/08/18 09:53 Dose: 1,000 intlu Clopidogrel Bisulfate (Plavix) 75 mg PO DAILY [facility] Last Admin: 02/08/18 09:52 Dose: 75 mg Donepezil HCl (Aricept) 10 mg PO HS [facility] Last Admin: 02/08/18 21:50 Dose: 10 mg Glipizide (Glucotrol Xl) 2.5 mg PO BRK [facility] Meropenem 1 gm/ Sodium (Chloride) 100 mls @ 100 mls/hr IVPB Q8@0500,1300,2100 [facility] PRN Reason: Protocol Last Admin: 02/09/18 04:04 Dose: 100 mls/hr Insulin Human Regular (Humulin R) 0 units SC ACHS [facility] PRN Reason: Protocol Last Admin: 02/09/18 06:34 Dose: 1 unit Insulin Lispro Protam/Lispro Human (Humalog Mix 75/25) 5 units SC BID [facility] Last Admin: 02/08/18 16:45 Dose: 5 units Lactulose (Enulose) 20 gm PO BID PRN PRN Reason: Constipation Last Admin: 02/08/18 09:43 Dose: 20 gm Latanoprost (Xalatan Opht) 1 drop OS [facility] Last Admin: 02/08/18 21:51 Dose: 1 drop Levothyroxine Sodium (Synthroid) 75 mcg PO DAILY@0630 [facility] Last Admin: 02/09/18 05:58 Dose: 75 mcg Meclizine HCl (Antivert) 25 mg PO TID PRN PRN Reason: Dizziness Memantine (Namenda) 10 mg PO Q12 [facility] Last Admin: 02/08/18 21:33 Dose: 10 mg Potassium Chloride (K-Dur 20 Meq Er Tab) 20 meq PO DAILY [facility] Last Admin: 02/08/18 09:51 Dose: 20 meq Prednisolone Acetate (Pred Forte 1% Opht Susp) 1 drop OS QID [facility] Last Admin: 02/08/18 21:33 Dose: 1 drop Ramipril (Altace) 5 mg PO DAILY [facility] Last Admin: 02/08/18 09:52 Dose: 5 mg Risperidone (Risperdal Tab) 0.5 mg PO [facility] Last Admin: 02/08/18 21:36 Dose: 0.5 mg Sertraline HCl (Zoloft) 50 mg PO [facility] Last Admin: 02/08/18 21:34 Dose: 50 mg Sitagliptin Phosphate (Januvia) 100 mg PO DAILY [facility] Last Admin: 02/08/18 09:49 Dose: 100 mg Tamsulosin HCl (Flomax) 0.4 mg PO [facility] Last Admin: 02/08/18 21:37 Dose: 0.4 mg Timolol Maleate (Timoptic 0.5% Ophth Soln) 1 drop OS Q12 [facility] Last Admin: 02/08/18 21:35 Dose: 1 drop - Labs Labs: 02/07/18 12:00 02/08/18 09:10
--- NOTE | 2018-02-09 07:58 | CP.PCM.PN ---
Subjective - Date & Time of Evaluation Date of Evaluation: 02/06/18 Time of Evaluation: 11:00 - Subjective Subjective: patient is up on a chair and willing to participate with PT. Has no fever Has no chest pain Has no SOB Has no abd pain. Objective - Vital Signs/Intake and Output Vital Signs (last 24 hours): Temp Pulse Resp BP Pulse Ox 97.7 F 72 20 146/65 97 02/08/18 22:04 02/08/18 22:04 02/08/18 22:04 02/08/18 22:04 02/08/18 22:04 - Medications Medications: Current Medications Acetaminophen/Butalbital/Caffeine (Fioricet) 1 tab PO Q8H PRN PRN Reason: Migraine headache Artificial Tears (Refresh Opth Soln) 0.3 ml OD TID [facility] Last Admin: 02/08/18 16:46 Dose: 0.3 ml Aspirin (Ecotrin) 81 mg PO Q48H [facility] Last Admin: 02/07/18 18:25 Dose: 81 mg Atorvastatin Calcium (Lipitor) 40 mg PO HS [facility] Last Admin: 02/08/18 21:32 Dose: 40 mg Brimonidine Tartrate (Alphagan 0.2% Opht) 1 drop OS Q12 [facility] Last Admin: 02/08/18 21:32 Dose: 1 drop Cholecalciferol (Vitamin D) 1,000 intlu PO DAILY [facility] Last Admin: 02/08/18 09:53 Dose: 1,000 intlu Clopidogrel Bisulfate (Plavix) 75 mg PO DAILY [facility] Last Admin: 02/08/18 09:52 Dose: 75 mg Donepezil HCl (Aricept) 10 mg PO HS [facility] Last Admin: 02/08/18 21:50 Dose: 10 mg Glipizide (Glucotrol Xl) 2.5 mg PO BRK [facility] Meropenem 1 gm/ Sodium (Chloride) 100 mls @ 100 mls/hr IVPB Q8@0500,1300,2100 [facility] PRN Reason: Protocol Last Admin: 02/09/18 04:04 Dose: 100 mls/hr Insulin Human Regular (Humulin R) 0 units SC ACHS [facility] PRN Reason: Protocol Last Admin: 02/09/18 06:34 Dose: 1 unit Insulin Lispro Protam/Lispro Human (Humalog Mix 75/25) 5 units SC BID [facility] Last Admin: 02/08/18 16:45 Dose: 5 units Lactulose (Enulose) 20 gm PO BID PRN PRN Reason: Constipation Last Admin: 02/08/18 09:43 Dose: 20 gm Latanoprost (Xalatan Opht) 1 drop OS HS [facility] Last Admin: 02/08/18 21:51 Dose: 1 drop Levothyroxine Sodium (Synthroid) 75 mcg PO DAILY@0630 [facility] Last Admin: 02/09/18 05:58 Dose: 75 mcg Meclizine HCl (Antivert) 25 mg PO TID PRN PRN Reason: Dizziness Memantine (Namenda) 10 mg PO Q12 [facility] Last Admin: 02/08/18 21:33 Dose: 10 mg Potassium Chloride (K-Dur 20 Meq Er Tab) 20 meq PO DAILY [facility] Last Admin: 02/08/18 09:51 Dose: 20 meq Prednisolone Acetate (Pred Forte 1% Opht Susp) 1 drop OS QID [facility] Last Admin: 02/08/18 21:33 Dose: 1 drop Ramipril (Altace) 5 mg PO DAILY [facility] Last Admin: 02/08/18 09:52 Dose: 5 mg Risperidone (Risperdal Tab) 0.5 mg PO [facility] Last Admin: 02/08/18 21:36 Dose: 0.5 mg Sertraline HCl (Zoloft) 50 mg PO HS [facility] Last Admin: 02/08/18 21:34 Dose: 50 mg Sitagliptin Phosphate (Januvia) 100 mg PO DAILY [facility] Last Admin: 02/08/18 09:49 Dose: 100 mg Tamsulosin HCl (Flomax) 0.4 mg PO [facility] Last Admin: 02/08/18 21:37 Dose: 0.4 mg Timolol Maleate (Timoptic 0.5% Ophth Soln) 1 drop OS Q12 [facility] Last Admin: 02/08/18 21:35 Dose: 1 drop - Labs Labs: 02/07/18 12:00 02/08/18 09:10
--- NOTE | 2018-02-09 08:00 | CP.PCM.PN ---
Subjective - Date & Time of Evaluation Date of Evaluation: 02/08/18 Time of Evaluation: 13:00 - Subjective Subjective: Patient is stable Has better apapetite Noted hyperglycemia On januvia 100 mg daily no recent blood test. Objective - Vital Signs/Intake and Output Vital Signs (last 24 hours): Temp Pulse Resp BP Pulse Ox 97.7 F 72 20 146/65 97 02/08/18 22:04 02/08/18 22:04 02/08/18 22:04 02/08/18 22:04 02/08/18 22:04 - Medications Medications: Current Medications Acetaminophen/Butalbital/Caffeine (Fioricet) 1 tab PO Q8H PRN PRN Reason: Migraine headache Artificial Tears (Refresh Opth Soln) 0.3 ml OD TID [facility] Last Admin: 02/08/18 16:46 Dose: 0.3 ml Aspirin (Ecotrin) 81 mg PO Q48H [facility] Last Admin: 02/07/18 18:25 Dose: 81 mg Atorvastatin Calcium (Lipitor) 40 mg PO HS [facility] Last Admin: 02/08/18 21:32 Dose: 40 mg Brimonidine Tartrate (Alphagan 0.2% Opht) 1 drop OS Q12 [facility] Last Admin: 02/08/18 21:32 Dose: 1 drop Cholecalciferol (Vitamin D) 1,000 intlu PO DAILY [facility] Last Admin: 02/08/18 09:53 Dose: 1,000 intlu Clopidogrel Bisulfate (Plavix) 75 mg PO DAILY [facility] [place] Last Admin: 02/08/18 09:52 Dose: 75 mg Donepezil HCl (Aricept) 10 mg PO HS [facility] Last Admin: 02/08/18 21:50 Dose: 10 mg Glipizide (Glucotrol Xl) 2.5 mg PO BRK [facility] Meropenem 1 gm/ Sodium (Chloride) 100 mls @ 100 mls/hr IVPB Q8@0500,1300,2100 [facility] PRN Reason: Protocol Last Admin: 02/09/18 04:04 Dose: 100 mls/hr Insulin Human Regular (Humulin R) 0 units SC ACHS [facility] [place] PRN Reason: Protocol Last Admin: 02/09/18 06:34 Dose: 1 unit Insulin Lispro Protam/Lispro Human (Humalog Mix 75/25) 5 units SC BID [facility] [place] Last Admin: 02/08/18 16:45 Dose: 5 units Lactulose (Enulose) 20 gm PO BID PRN PRN Reason: Constipation Last Admin: 02/08/18 09:43 Dose: 20 gm Latanoprost (Xalatan Opht) 1 drop OS HS [facility] Last Admin: 02/08/18 21:51 Dose: 1 drop Levothyroxine Sodium (Synthroid) 75 mcg PO DAILY@0630 [facility] Last Admin: 02/09/18 05:58 Dose: 75 mcg Meclizine HCl (Antivert) 25 mg PO TID PRN PRN Reason: Dizziness Memantine (Namenda) 10 mg PO Q12 [facility] Last Admin: 02/08/18 21:33 Dose: 10 mg Potassium Chloride (K-Dur 20 Meq Er Tab) 20 meq PO DAILY [facility] [place] Last Admin: 02/08/18 09:51 Dose: 20 meq Prednisolone Acetate (Pred Forte 1% Opht Susp) 1 drop OS QID [facility] Last Admin: 02/08/18 21:33 Dose: 1 drop Ramipril (Altace) 5 mg PO DAILY [facility] Last Admin: 02/08/18 09:52 Dose: 5 mg Risperidone (Risperdal Tab) 0.5 mg PO HS [facility] [place] Last Admin: 02/08/18 21:36 Dose: 0.5 mg Sertraline HCl (Zoloft) 50 mg PO HS [facility] [place] Last Admin: 02/08/18 21:34 Dose: 50 mg Sitagliptin Phosphate (Januvia) 100 mg PO DAILY [facility] Last Admin: 02/08/18 09:49 Dose: 100 mg Tamsulosin HCl (Flomax) 0.4 mg PO HS [facility] [place] Last Admin: 02/08/18 21:37 Dose: 0.4 mg Timolol Maleate (Timoptic 0.5% Ophth Soln) 1 drop OS Q12 [facility] Last Admin: 02/08/18 21:35 Dose: 1 drop - Labs Labs: 02/07/18 12:00 02/08/18 09:10
[2018-02-09] MEDS: Insulin Lispro Mix 75/25 100 units/ml (HumaLog) 10ml SC SCH ×2 (08:54→16:45)
[2018-02-09] MEDS: GlipiZIDE 2.5 mg SR Tab PO SCH (08:59)
[2018-02-09] MEDS: PrednisoLONE 1% OPTH SUSP OS SCH ×4 (09:01→22:14)
[2018-02-09] MEDS: Brimonidine 0.2% 50 DROP/5 ML BOTTLE OS SCH ×2 (09:01→21:15)
[2018-02-09] MEDS: Lubricant Eye Drops UD OD SCH ×3 (09:03→16:48)
[2018-02-09] MEDS: Potassium Chloride 20 mEq ER Tab PO SCH (09:04)
[2018-02-09] MEDS: Cholecalciferol 1,000 INTLU TAB PO SCH (09:04)
[2018-02-09] MEDS: Latanoprost 0.005% Opht SOUTION OS SCH (22:18)
[2018-02-10] MEDS: Meropenem 1 GM in Sodium Chloride 0.9% 100 ML IVPB SCH ×3 (04:49→20:24)
[2018-02-10] MEDS: Levothyroxine 75 MCG TAB PO SCH (05:33)
[2018-02-10] MEDS: Insulin Regular 100 units/ml SC SCH ×4 (07:02→21:11)
[2018-02-10] MEDS: Brimonidine 0.2% 50 DROP/5 ML BOTTLE OS SCH ×2 (09:21→20:23)
[2018-02-10] MEDS: Insulin Lispro Mix 75/25 100 units/ml (HumaLog) 10ml SC SCH ×2 (09:23→16:48)
[2018-02-10] MEDS: GlipiZIDE 2.5 mg SR Tab PO SCH (09:23)
[2018-02-10] MEDS: Potassium Chloride 20 mEq ER Tab PO SCH (09:28)
[2018-02-10] MEDS: PrednisoLONE 1% OPTH SUSP OS SCH ×4 (09:29→21:12)
[2018-02-10] MEDS: Lubricant Eye Drops UD OD SCH ×3 (09:30→16:50)
[2018-02-10] MEDS: Cholecalciferol 1,000 INTLU TAB PO SCH (09:31)
--- NOTE | 2018-02-10 16:05 | CP.PCM.PN ---
Subjective - Date & Time of Evaluation Date of Evaluation: 02/10/18 Time of Evaluation: 08:50 - Subjective Subjective: 82 y/o F evaluated and examined by bedside with Dr Mcginnis. Pt is responsive to verbal and tactile stimulation, eating and reports having normal bowel movement. Pt afebrile, tolerating Po with No acute events overnight. Objective - Vital Signs/Intake and Output Vital Signs (last 24 hours): Temp Pulse Resp BP Pulse Ox 98.8 F 68 20 152/70 H 99 02/10/18 07:47 02/10/18 07:47 02/10/18 07:47 02/10/18 09:22 02/10/18 07:47 Intake and Output: 02/10/18 02/10/18 06:59 18:59 Intake Total 120 Output Total 200 Balance -80 - Medications Medications: Current Medications Acetaminophen/Butalbital/Caffeine (Fioricet) 1 tab PO Q8H PRN PRN Reason: Migraine headache Artificial Tears (Refresh Opth Soln) 0.3 ml OD TID [facility] Last Admin: 02/10/18 12:42 Dose: 0.3 ml Aspirin (Ecotrin) 81 mg PO Q48H [facility] Last Admin: 02/09/18 20:00 Dose: 81 mg Atorvastatin Calcium (Lipitor) 40 mg PO HS [facility] Last Admin: 02/09/18 22:12 Dose: 40 mg Brimonidine Tartrate (Alphagan 0.2% Opht) 1 drop OS Q12 [facility] Last Admin: 02/10/18 09:21 Dose: 1 drop Cholecalciferol (Vitamin D) 1,000 intlu PO DAILY [facility] Last Admin: 02/10/18 09:31 Dose: 1,000 intlu Clopidogrel Bisulfate (Plavix) 75 mg PO DAILY [facility] Last Admin: 02/10/18 09:28 Dose: 75 mg Donepezil HCl (Aricept) 10 mg PO HS [facility] Last Admin: 02/09/18 22:13 Dose: 10 mg Glipizide (Glucotrol Xl) 2.5 mg PO BRK [facility] Last Admin: 02/10/18 09:23 Dose: 2.5 mg Meropenem 1 gm/ Sodium (Chloride) 100 mls @ 100 mls/hr IVPB Q8@0500,1300,2100 [facility] PRN Reason: Protocol Last Admin: 02/10/18 12:41 Dose: 100 mls/hr Insulin Human Regular (Humulin R) 0 units SC ACHS [facility] PRN Reason: Protocol Last Admin: 02/10/18 12:39 Dose: Not Given Insulin Lispro Protam/Lispro Human (Humalog Mix 75/25) 5 units SC BID [facility] Last Admin: 02/10/18 09:23 Dose: 5 units Lactulose (Enulose) 20 gm PO BID PRN PRN Reason: Constipation Last Admin: 02/08/18 09:43 Dose: 20 gm Latanoprost (Xalatan Opht) 1 drop OS HS [facility] Last Admin: 02/09/18 22:18 Dose: 1 drop Levothyroxine Sodium (Synthroid) 75 mcg PO DAILY@0630 [facility] Last Admin: 02/10/18 05:33 Dose: 75 mcg Meclizine HCl (Antivert) 25 mg PO TID PRN PRN Reason: Dizziness Memantine (Namenda) 10 mg PO Q12 [facility] Last Admin: 02/10/18 09:28 Dose: 10 mg Potassium Chloride (K-Dur 20 Meq Er Tab) 20 meq PO DAILY [facility] Last Admin: 02/10/18 09:28 Dose: 20 meq Prednisolone Acetate (Pred Forte 1% Opht Susp) 1 drop OS QID [facility] Last Admin: 02/10/18 12:42 Dose: 1 drop Ramipril (Altace) 5 mg PO DAILY [facility] Last Admin: 02/10/18 09:22 Dose: 5 mg Risperidone (Risperdal Tab) 0.5 mg PO [facility] Last Admin: 02/09/18 22:13 Dose: 0.5 mg Sertraline HCl (Zoloft) 50 mg PO [facility] Last Admin: 02/09/18 22:12 Dose: 50 mg Sitagliptin Phosphate (Januvia) 100 mg PO DAILY [facility] Last Admin: 02/10/18 09:27 Dose: 100 mg Tamsulosin HCl (Flomax) 0.4 mg PO [facility] Last Admin: 02/09/18 22:14 Dose: 0.4 mg Timolol Maleate (Timoptic 0.5% Ophth Soln) 1 drop OS Q12 [facility] Last Admin: 02/10/18 09:31 Dose: 1 drop - Labs Labs: 02/07/18 12:00 02/08/18 09:10 - Constitutional Appears: No Acute Distress - Head Exam Head Exam: ATRAUMATIC - Eye Exam Eye Exam: EOMI - ENT Exam ENT Exam: Mucous Membranes Dry - Neck Exam Neck Exam: Full ROM - Respiratory Exam Respiratory Exam: NORMAL BREATHING PATTERN. absent: Rhonchi, Wheezes - Cardiovascular Exam Cardiovascular Exam: +S1, +S2 - GI/Abdominal Exam GI & Abdominal Exam: Soft. absent: Distended, Tenderness - Neurological Exam Neurological Exam: Alert, Awake Assessment and Plan - Assessment and Plan (Free Text) Assessment: 82 y/o F admitted to TCU for management of ESBL-UTI. --Continu IV Merrem, will complete 14 days. --Anticipated disacharge FridayMar 17. --Continue management as ordered. --Continue physical therapy as tolerated.
[2018-02-10] MEDS: Latanoprost 0.005% Opht SOUTION OS SCH (21:09)
[2018-02-11] MEDS: Meropenem 1 GM in Sodium Chloride 0.9% 100 ML IVPB SCH ×3 (04:15→20:27)
[2018-02-11] MEDS: Levothyroxine 75 MCG TAB PO SCH (05:38)
[2018-02-11] MEDS: Insulin Regular 100 units/ml SC SCH ×4 (06:46→21:46)
[2018-02-11] MEDS: GlipiZIDE 2.5 mg SR Tab PO SCH (08:15)
[2018-02-11] MEDS: Brimonidine 0.2% 50 DROP/5 ML BOTTLE OS SCH ×2 (09:11→20:40)
[2018-02-11] MEDS: Insulin Lispro Mix 75/25 100 units/ml (HumaLog) 10ml SC SCH ×2 (09:12→17:00)
[2018-02-11] MEDS: PrednisoLONE 1% OPTH SUSP OS SCH ×4 (09:12→21:24)
[2018-02-11] MEDS: Lubricant Eye Drops UD OD SCH ×3 (09:12→17:00)
[2018-02-11] MEDS: Potassium Chloride 20 mEq ER Tab PO SCH (09:13)
[2018-02-11] MEDS: Cholecalciferol 1,000 INTLU TAB PO SCH (09:14)
[2018-02-11] MEDS: Latanoprost 0.005% Opht SOUTION OS SCH (21:28)
[2018-02-12] MEDS: Meropenem 1 GM in Sodium Chloride 0.9% 100 ML IVPB SCH ×3 (04:26→21:22)
[2018-02-12] MEDS: Levothyroxine 75 MCG TAB PO SCH (05:33)
[2018-02-12] MEDS: Insulin Regular 100 units/ml SC SCH ×4 (06:50→21:29)
[2018-02-12] MEDS: GlipiZIDE 2.5 mg SR Tab PO SCH (08:42)
[2018-02-12] MEDS: Brimonidine 0.2% 50 DROP/5 ML BOTTLE OS SCH ×2 (08:43→21:21)
[2018-02-12] MEDS: Insulin Lispro Mix 75/25 100 units/ml (HumaLog) 10ml SC SCH ×2 (08:45→17:26)
[2018-02-12] MEDS: Cholecalciferol 1,000 INTLU TAB PO SCH (08:47)
[2018-02-12] MEDS: PrednisoLONE 1% OPTH SUSP OS SCH ×4 (09:22→21:21)
[2018-02-12] MEDS: Lubricant Eye Drops UD OD SCH ×3 (09:22→17:30)
[2018-02-12] MEDS: Potassium Chloride 20 mEq ER Tab PO SCH (09:54)
[2018-02-12] MEDS: Latanoprost 0.005% Opht SOUTION OS SCH (21:21)
[2018-02-13] MEDS: Meropenem 1 GM in Sodium Chloride 0.9% 100 ML IVPB SCH ×3 (05:54→20:11)
[2018-02-13] MEDS: Levothyroxine 75 MCG TAB PO SCH (05:55)
[2018-02-13] MEDS: Insulin Regular 100 units/ml SC SCH ×4 (08:09→21:22)
[2018-02-13] MEDS: GlipiZIDE 2.5 mg SR Tab PO SCH (09:02)
[2018-02-13] MEDS: Lubricant Eye Drops UD OD SCH ×3 (09:43→16:50)
[2018-02-13] MEDS: Brimonidine 0.2% 50 DROP/5 ML BOTTLE OS SCH ×2 (09:43→20:18)
[2018-02-13] MEDS: Insulin Lispro Mix 75/25 100 units/ml (HumaLog) 10ml SC SCH ×2 (09:44→16:48)
[2018-02-13] MEDS: Cholecalciferol 1,000 INTLU TAB PO SCH (09:45)
[2018-02-13] MEDS: PrednisoLONE 1% OPTH SUSP OS SCH ×4 (09:45→21:11)
[2018-02-13] MEDS: Potassium Chloride 20 mEq ER Tab PO SCH (09:45)
--- NOTE | 2018-02-13 12:30 | CP.PCM.PN ---
Subjective - Date & Time of Evaluation Date of Evaluation: 02/13/18 Time of Evaluation: 09:00 - Subjective Subjective: afeb nad denies fever confused as before Objective - Vital Signs/Intake and Output Vital Signs (last 24 hours): Temp Pulse Resp BP Pulse Ox 97.3 F L 73 20 112/64 97 02/13/18 08:31 02/13/18 08:31 02/13/18 08:31 02/13/18 09:44 02/13/18 08:31 - Medications Medications: Current Medications Acetaminophen/Butalbital/Caffeine (Fioricet) 1 tab PO Q8H PRN PRN Reason: Migraine headache Last Admin: 02/12/18 09:50 Dose: 1 tab Artificial Tears (Refresh Opth Soln) 0.3 ml OD TID [facility] Last Admin: 02/13/18 09:43 Dose: 0.3 ml Aspirin (Ecotrin) 81 mg PO Q48H [facility] Last Admin: 02/11/18 20:32 Dose: 81 mg Atorvastatin Calcium (Lipitor) 40 mg PO HS [facility] Last Admin: 02/12/18 21:22 Dose: 40 mg Brimonidine Tartrate (Alphagan 0.2% Opht) 1 drop OS Q12 [facility] Last Admin: 02/13/18 09:43 Dose: 1 drop Cholecalciferol (Vitamin D) 1,000 intlu PO DAILY [facility] Last Admin: 02/13/18 09:45 Dose: 1,000 intlu Clopidogrel Bisulfate (Plavix) 75 mg PO DAILY [facility] Last Admin: 02/13/18 09:45 Dose: 75 mg Donepezil HCl (Aricept) 10 mg PO HS [facility] Last Admin: 02/12/18 21:22 Dose: 10 mg Glipizide (Glucotrol Xl) 2.5 mg PO BRK [facility] Last Admin: 02/13/18 09:02 Dose: 2.5 mg Meropenem 1 gm/ Sodium (Chloride) 100 mls @ 100 mls/hr IVPB Q8@0500,1300,2100 [facility] PRN Reason: Protocol Last Admin: 02/13/18 05:54 Dose: 100 mls/hr Insulin Human Regular (Humulin R) 0 units SC ACHS [facility] PRN Reason: Protocol Last Admin: 02/13/18 08:09 Dose: Not Given Insulin Lispro Protam/Lispro Human (Humalog Mix 75/25) 5 units SC BID [facility] Last Admin: 02/13/18 09:44 Dose: 5 units Lactulose (Enulose) 20 gm PO BID PRN PRN Reason: Constipation Last Admin: 02/08/18 09:43 Dose: 20 gm Latanoprost (Xalatan Opht) 1 drop OS [facility] Last Admin: 02/12/18 21:21 Dose: 1 drop Levothyroxine Sodium (Synthroid) 75 mcg PO DAILY@0630 [facility] Last Admin: 02/13/18 05:55 Dose: 75 mcg Meclizine HCl (Antivert) 25 mg PO TID PRN PRN Reason: Dizziness Memantine (Namenda) 10 mg PO Q12 [facility] Last Admin: 02/13/18 09:45 Dose: 10 mg Potassium Chloride (K-Dur 20 Meq Er Tab) 20 meq PO DAILY [facility] Last Admin: 02/13/18 09:45 Dose: 20 meq Prednisolone Acetate (Pred Forte 1% Opht Susp) 1 drop OS QID [facility] Last Admin: 02/13/18 09:45 Dose: 1 drop Ramipril (Altace) 5 mg PO DAILY [facility] Last Admin: 02/13/18 09:44 Dose: 5 mg Risperidone (Risperdal Tab) 0.5 mg PO [facility] Last Admin: 02/12/18 21:22 Dose: 0.5 mg Sertraline HCl (Zoloft) 50 mg PO [facility] Last Admin: 02/12/18 21:21 Dose: 50 mg Sitagliptin Phosphate (Januvia) 100 mg PO DAILY [facility] Last Admin: 02/13/18 09:44 Dose: 100 mg Tamsulosin HCl (Flomax) 0.4 mg PO [facility] Last Admin: 02/12/18 21:22 Dose: 0.4 mg Timolol Maleate (Timoptic 0.5% Ophth Soln) 1 drop OS Q12 [facility] Last Admin: 02/13/18 09:43 Dose: 1 drop - Labs Labs: 02/07/18 12:00 02/08/18 09:10 - Constitutional Appears: Non-toxic, Chronically Ill - Head Exam Head Exam: NORMOCEPHALIC - Eye Exam Eye Exam: PERRL - ENT Exam ENT Exam: Mucous Membranes Dry - Neck Exam Neck Exam: absent: Lymphadenopathy - Respiratory Exam Respiratory Exam: Decreased Breath Sounds - Cardiovascular Exam Cardiovascular Exam: REGULAR RHYTHM - GI/Abdominal Exam GI & Abdominal Exam: Distended, Soft - Rectal Exam Rectal Exam: Deferred - Exam Exam: NORMAL INSPECTION - Extremities Exam Extremities Exam: absent: Pedal Edema - Back Exam Back Exam: absent: CVA tenderness (L), CVA tenderness (R) - Neurological Exam Neurological Exam: Alert, Awake, Oriented x3 - Psychiatric Exam Psychiatric exam: Normal Mood Assessment and Plan (1) ESBL (extended spectrum beta-lactamase) producing bacteria infection Status: Acute (2) Intracervical pessary Status: Acute (3) Vaginal pessary in situ Status: Acute (4) Vaginal pessary present Status: Acute
[2018-02-13] MEDS: Latanoprost 0.005% Opht SOUTION OS SCH (21:16)
[2018-02-14] MEDS: Meropenem 1 GM in Sodium Chloride 0.9% 100 ML IVPB SCH ×2 (04:54→13:36)
[2018-02-14] MEDS: Levothyroxine 75 MCG TAB PO SCH (05:45)
[2018-02-14] MEDS: Insulin Regular 100 units/ml SC SCH ×2 (07:42→11:31)
[2018-02-14 09:14] VITALS: BP 137/72; PULSE 77; TEMP 97.7; O2SAT 97
[2018-02-14] MEDS: Brimonidine 0.2% 50 DROP/5 ML BOTTLE OS SCH (09:44)
[2018-02-14] MEDS: Lubricant Eye Drops UD OD SCH ×2 (09:45→13:37)
[2018-02-14] MEDS: PrednisoLONE 1% OPTH SUSP OS SCH ×2 (09:45→13:36)
[2018-02-14] MEDS: GlipiZIDE 2.5 mg SR Tab PO SCH (09:45)
[2018-02-14] MEDS: Potassium Chloride 20 mEq ER Tab PO SCH (09:46)
[2018-02-14] MEDS: Cholecalciferol 1,000 INTLU TAB PO SCH (09:47)
[2018-02-14] MEDS: Insulin Lispro Mix 75/25 100 units/ml (HumaLog) 10ml SC SCH (09:48)
== END 2018-02-14 14:15 | disposition home or self-care (01) | DRG 690 ==
LOC: H.TCU 18:40
PROVIDERS: ADMIT Family Medicine; ATTEND Family Medicine
PROC: F07Z8FZ Transfer Training Treatment using Assistive, Adaptive, Supportive or Protective Equipment (ICD-10-PCS; principal; 2018-02-03)
PROC: F07Z9FZ Gait Training/Functional Ambulation Treatment using Assistive, Adaptive, Supportive or Protective Equipment (ICD-10-PCS; 2018-02-03)
PROC: F07Z5FZ Bed Mobility Treatment using Assistive, Adaptive, Supportive or Protective Equipment (ICD-10-PCS; 2018-02-03)
PROC: F07L6GZ Therapeutic Exercise Treatment of Musculoskeletal System - Lower Back / Lower Extremity using Aerobic Endurance and Conditioning Equipment (ICD-10-PCS; 2018-02-03)
DX: N39.0 Urinary tract infection, site not specified (principal); B96.20 Unspecified Escherichia coli [E. coli] as the cause of diseases classified elsewhere; Z16.12 Extended spectrum beta lactamase (ESBL) resistance; G30.9 Alzheimer's disease, unspecified; F02.80 Dementia in other diseases classified elsewhere, unspecified severity, without behavioral disturbance, psychotic disturbance, mood disturbance, and anxiety; E78.5 Hyperlipidemia, unspecified; Z79.4 Long term (current) use of insulin; E03.9 Hypothyroidism, unspecified; I11.0 Hypertensive heart disease with heart failure; I50.9 Heart failure, unspecified; E78.00 Pure hypercholesterolemia, unspecified; F32.9 Major depressive disorder, single episode, unspecified; E11.65 Type 2 diabetes mellitus with hyperglycemia; I69.398 Other sequelae of cerebral infarction; H54.7 Unspecified visual loss; Z88.6 Allergy status to analgesic agent; Z88.3 Allergy status to other anti-infective agents; Z88.2 Allergy status to sulfonamides

== ENCOUNTER 2018-02-16 04:49 | Inpatient (IN) | payer MEDICARE ==
[2018-02-16 04:51] VITALS: BMI 23.9
[2018-02-16] MEDS ORDERED: Dextrose 50% SYRINGE Inj (50 ml) ONE (04:55)
[2018-02-16] MEDS ORDERED: Sodium Chloride 0.9% 1,000 ML IV STA (05:01)
[2018-02-16] MEDS ORDERED: Piperacillin/Tazobact 3.375 GM in Sodium Chloride 0.9% 100 ML IVPB STA (05:10)
[2018-02-16] MEDS ORDERED: Dextrose 50% SYRINGE Inj (50 ml) IVP STA (05:43)
[2018-02-16 05:46] LABS: VENOUS BLOOD GAS PCO2 48 mmHg (40-60); VENOUS BLOOD GAS PO2 43 mm/Hg (30-55); VENOUS BLOOD PH 7.36 (7.32-7.43)
[2018-02-16 06:00] LABS: PROTHROMBIN TIME 11.2 Seconds (9.8-13.1)
[2018-02-16 06:03] LABS: PARTIAL THROMBOPLASTIN TIME 29.8 Seconds (25.6-37.1)
[2018-02-16] MEDS ORDERED: Piperacillin/Tazobact 3.375 gm Inj IVPB ONE (06:04)
[2018-02-16 06:07] LABS: BASO % 0.2 % (0.0-2.0); EOS # 2.2 K/uL (0.0-0.7); HEMOGLOBIN 11.4 g/dL (12.0-16.0); LYMPH # 0.7 K/uL (1.0-4.3); LYMPH % 3.3 % (20.0-40.0); MEAN CELL VOLUME 89.3 fl (81.0-99.0); MEAN CORPUSCULAR HEMOGLOBIN 28.8 pg (27.0-31.0); MEAN CORPUSCULAR HGB CONC 32.2 g/dL (33.0-37.0); MEAN PLATELET VOLUME 9.5 fl (7.2-11.7); MONO # 1.4 K/uL (0.0-0.8); MONO % 6.5 % (0.0-10.0); NEUT # 17.2 K/uL (1.8-7.0); PLATELET COUNT 430 K/uL (130-400); RBC 3.95 Mil/uL (3.80-5.20); RED CELL DISTRIBUTION WIDTH 14.5 % (11.5-14.5); WHITE BLOOD COUNT 21.5 K/uL (4.8-10.8)
--- NOTE | 2018-02-16 06:08 | ED PDOC ---
HPI: Altered Mental Status Time Seen by Provider: 02/16/18 04:51 Chief Complaint (Nursing): Altered Mental Status Chief Complaint (Provider): Altered Mental Status History Per: EMS, Family (Daughter) History/Exam Limitations: Clinical Condition Onset/Duration Of Symptoms: Sudden Onset (0400) Current Symptoms Are (Timing): Still Present Additional Complaint(s): 82 year old female presenting with daughter for evaluation of altered mental status prior to arrival. Patients daughter reports that around 4 am she thought she heard a funny grunting sound coming from the patients room and went to check on the patient. She states went to the patients room to see her and the patient was only mumbling in response to questions. Daughter also reports that the patient was very pale and cool to touch. She reports that when she took the patients finger stick, it was 32. Daughter states she called EMS who gave the patient Glucagon IM on arrival with a slight increase in alertness. Daughter reports continued confusion concerned her and she brought the patient to the ED for evaluation. Patient was recently discharged home from the hospital after being admitted due to a UTI. Patient was on broad spectrum antibiotics due to multi drug resistant E.coli. En route to ED: Patient had a large, watery bowel movement. PMD: Dr. 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; L side weakness), Dementia, Depression, Diabetes, Diverticulitis (Diverticulosis), Fractures (rt wrist/elbow), Gastritis, HTN, Hypercholesterolemia, Hyperlipidemia, Hypothyroidism, Migraine, Pneumonia, TIA Denies: Arthritis, HIV, Chronic Kidney Disease - Surgical History Surgical History: Tonsillectomy (partial thyroidectomy) Denies: CABG - Family History Family History: States: Unknown Family Hx - Home Medications Home Medications: Ambulatory Orders Medication Instructions Recorded Acetaminophen/Butalbital/Caf 1 tab PO Q8H PRN 08/23/15 [Fioricet] Atorvastatin [Lipitor] 40 mg PO HS 08/23/15 Latanoprost 0.005% Opht [Xalatan 1 drop LEFTEYE HS 08/23/15 Opht] Meclizine HCl [Antivert] 25 mg PO TID PRN 08/23/15 Memantine [Namenda] 10 mg PO Q12 08/23/15 Prednisolone Acetate [Pred Forte] 1 drop LEFTEYE QID 08/23/15 Metoprolol Tartrate [Lopressor] 12.5 mg PO DAILY PRN 10/02/16 Brimonidine Tartrate/Timolol 1 drop LEFTEYE Q12 06/10/17 [Combigan 0.2%-0.5% Eye Drops] Insulin Aspart Prot/Insuln Asp 10 unit SC DIN 06/10/17 [Novolog Mix 70-30 Vial] Insulin Aspart Prot/Insuln Asp 40 unit SC BRK 06/10/17 [Novolog Mix 70-30 Vial] Ranitidine HCl [Zantac] 150 mg PO BID 06/10/17 cycloSPORINE [Restasis] 1 drop LEFTEYE Q12H 06/10/17 risperiDONE [RisperDAL Tab] 0.25 mg PO QAM 06/10/17 Aspirin [Ecotrin] 81 mg PO Q48H 12/16/17 Carboxymethylcellulose Sodium 1 drop RIGHTEYE HS 12/16/17 [Lubricant Eye Drops] Fluconazole [Diflucan] 100 mg PO HS 01/07/18 Atorvastatin [Lipitor] 40 mg PO HS tab 02/14/18 Cholecalciferol [Vitamin D 1000 IU] 1,000 intlu PO DAILY tab 02/14/18 Clopidogrel [Plavix] 75 mg PO DAILY tab 02/14/18 Donepezil [Aricept] 10 mg PO HS tab 02/14/18 GlipiZIDE SR [Glucotrol XL] 2.5 mg PO BRK tab 02/14/18 Insulin Human Regular [HumuLIN R] 0 units SC ACHS ml 02/14/18 Levothyroxine [Synthroid] 75 mcg PO DAILY@0630 tab 02/14/18 Polyvinyl Alcohol/Povidone 0.3 ml OD TID drpette 02/14/18 [Refresh Opth Soln] Ramipril [Altace] 5 mg PO DAILY cap 02/14/18 SITagliptin [Januvia] 100 mg PO DAILY tab 02/14/18 Sertraline [Zoloft] 50 mg PO HS tab 02/14/18 Tamsulosin [Flomax] 0.4 mg PO HS cap 02/14/18 Timolol 0.5% Ophth [Timoptic 0.5% 1 drop OS Q12 bottle 02/14/18 Ophth Soln] risperiDONE [RisperDAL Tab] 0.5 mg PO HS tab 02/14/18 - Allergies Allergies/Adverse Reactions: Allergies Allergy/AdvReac Type Severity Reaction Status Date / Time aspirin Allergy NAUSEA Verified 02/16/18 04:50 ciprofloxacin Allergy REDNESS Verified 02/16/18 04:50 Sulfa (Sulfonamide Allergy RASH Verified 02/16/18 04:50 Antibiotics) Iodinated Contrast- Oral and AdvReac VOMITING Verified 02/16/18 04:50 IV Dye metformin AdvReac DIARRHEA Verified 02/16/18 04:50 Review of Systems Review Of Systems: ROS cannot be obtained secondary to pt's inabilty to answer questions. Physical Exam - Reviewed Nursing Documentation Reviewed: Yes Vital Signs Reviewed: Yes - Physical Exam Appears: Positive for: In Acute Distress (chronically ill appearing) Head Exam: Positive for: ATRAUMATIC, NORMOCEPHALIC Skin: Positive for: Pallor. Negative for: Warm (cool to touch) ENT: Positive for: Other (dry mucous membranes) Neck: Positive for: Painless ROM, Supple Cardiovascular/Chest: Positive for: Regular Rate, Rhythm. Negative for: Murmur Respiratory: Negative for: Wheezing, Respiratory Distress Gastrointestinal/Abdominal: Positive for: Soft. Negative for: Tenderness Back: Positive for: Normal Inspection. Negative for: Decreased ROM Extremity: Positive for: Other (poor muscle bulk diffusely) Lymphatic: Negative for: Adenopathy Neurologic/Psych: Positive for: Oriented (x2). Negative for: Alert (lethargic, responding to voice; slurred speech) - Laboratory Results Result Diagrams: 02/16/18 05:08 02/16/18 05:08 - ECG ECG Rhythm: Positive for: Normal QRS, Sinus Rhythm (66 bpm), Nonspecific Changes (diffusely flattened T waves) O2 Sat by Pulse Oximetry: 98 (RA) Pulse Ox Interpretation: Normal - Other Rad CHEST X-RAY X-Ray: Interpreted by Me, Viewed By Me X-Ray Interpretation: No acute findings - Critical Care Total Time (In Min): 30 Documented Critical Care: Time excludes all time spent performint seperately billable procedures Medical Decision Making Medical Decision Making: Impression: Hypoglycemia and hypotension. Differential diagnoses include, but are not limited to sepsis, electrolyte abnormality, C.diff colitis, and enteritis. Plan: -VBG shock pane -CT Head w/o contrast -EKG -BNP -CMP -Magnesium -Phosphorus -Troponin I -CBC w/ differential -PTT/PT -CXR -Glucose, POC -Dextrose 1000ml 100ml/hour -NS 1L IV -Vancomycin 1gm/250ml IV -Zosyn 3.375gm/100ml IVPB -Blood culture -Stool culture -Urine culture -bid writer -IV insertion -Solis catheter -Swallow eval and treatment -C.diff toxin A B -Urinalysis -Reevaluation At bedside on arrival secondary to patient hypoglycemia and hypotension. Patient given D50 which improved mental status. Patient also given bolus of IV fluid which improved blood pressure. 0631: Case discussed with Dr. Mcginnis. Patient admitted for sepsis, diarrhrea, and hypoglycemia under his service. 0636: Labs reviewed. Lactic acid normal, markedly elevated WBC, and urinalysis consistent with UTI. Scribe Attestation: Documented by Richard Lanier, acting as a scribe for Ashlie Swenson MD. Provider Scribe Attestation: All medical record entries made by the Scribe were at my direction and personally dictated by me. I have reviewed the chart and agree that the record accurately reflects my personal performance of the history, physical exam, medical decision making, and the department course for this patient. I have also personally directed, reviewed, and agree with the discharge instructions and disposition. Disposition - Clinical Impression Clinical Impression: Urinary tract infection, Sepsis, Hypoglycemia, Diarrhea Discussed With Dr.: Morris Mcginnis Counseled Patient/Family Regarding: Studies Performed, Diagnosis - Disposition Disposition Time: 06:00 Condition: SERIOUS - Pt Status Changed To: Hospital Disposition Of: Inpatient - Admit Certification Admit to Inpatient:: After my assessment, the patient will require hospitalization for at least two midnights. This is because of the severity of symptoms shown, intensity of services needed, and/or the medical risk in this patient being treated as an outpatient. - POA Present On Arrival: Falls Or Trauma (risk)
[2018-02-16 06:13] LABS: SQUAMOUS EPITHIAL 32 /hpf (0-5); URINE BACTERIA RARE (<OCC); URINE BILIRUBIN NEGATIVE (NEGATIVE); URINE BLOOD NEGATIVE (NEGATIVE); URINE CLARITY CLOUDY (Clear); URINE COLOR YELLOW (YELLOW); URINE GLUCOSE (UA) 50 mg/dL (Normal); URINE LEUKOCYTE ESTERASE TRACE Leu/uL (Negative); URINE PROTEIN 100 mg/dL (NEGATIVE)
[2018-02-16 06:35] LABS: B-TYPE NATRIURETIC PEPTIDE 1410 pg/ml (0-900)
[2018-02-16 06:39] LABS: BLOOD UREA NITROGEN 25 mg/dl (7-17); GFR NON-AFRICAN AMERICAN 60
[2018-02-16 06:40] LABS: ALB/GLOB RATIO 0.8 (1.0-2.1); ALBUMIN 3.1 g/dL (3.5-5.0); AST/SGOT 47 U/L (14-36); CALCIUM 8.9 mg/dL (8.4-10.2)
[2018-02-16 06:41] LABS: ALT/SGPT 29 U/L (9-52)
[2018-02-16 07:29] LABS: BANDS 2 % (0-2); BASOPHIL 1 % (0-2); EOSINOPHIL 10 % (0-7); LYMPHOCYTE 3 % (20-50); METAMYELOCYTE 2 % (0-0); MONOCYTE 8 % (0-10); NEUTROPHIL 74 % (42-75); PLATELET ESTIMATE INCREASED (NORMAL); TOTAL CELLS COUNTED 100
[2018-02-16] MEDS ORDERED: Vancomycin 1 g Inj ONE (07:56)
--- NOTE | 2018-02-16 08:24 | RAD ---
Date of service: 02/16/2018 HISTORY: weakness COMPARISON: Portable chest 01/30/2018. FINDINGS: LUNGS: Right MediPort now removed. Left basilar patchy airspace disease developing with underlying linear atelectasis or fibrosis remaining. No right-sided infiltrate. PLEURA: Trace left pleural effusion present, none at the right. No pneumothorax apparent. CARDIOVASCULAR: Stable mild cardiomegaly. No pulmonary vascular congestion. OSSEOUS STRUCTURES: No significant abnormalities. VISUALIZED UPPER ABDOMEN: Normal. OTHER FINDINGS: None. IMPRESSION: Limited developing airspace disease left base. Trace left pleural effusion not excluded. Interval removal of right MediPort. Stable cardiomegaly.
--- NOTE | 2018-02-16 09:39 | CARD ---
APPROVED REPORT Date of service: 02/16/2018 <Conclusion> Normal sinus rhythm Cannot rule out Anterior infarct, age undetermined Abnormal ECG
--- NOTE | 2018-02-16 11:40 | CT ---
Date of service: 02/16/2018 PROCEDURE: CT HEAD WITHOUT CONTRAST. HISTORY: Altered mental status COMPARISON: Comparison made with prior CT scan of the brain dated 01/30/2018 TECHNIQUE: Contiguous helical/ transaxial computed tomography images were obtained through the head/brain without intravenous contrast. Radiation dose: Total exam DLP = 843.78 mGy-cm. This CT exam was performed using one or more of the following dose reduction techniques: Automated exposure control, adjustment of the mA and/or kV according to patient size, and/or use of iterative reconstruction technique. . FINDINGS: HEMORRHAGE: No acute parenchymal, subarachnoid or extra-axial hemorrhage. BRAIN: Changes mild moderate chronic periventricular white matter ischemic changes seen extending peripherally into the deep and subcortical white matter both cerebral hemispheres. . Suspect small chronic bilateral basal nuclei infarcts. Note that the possibility of a small hyperacute infarct cannot be excluded. Moderate to significant generalized volume loss. Dense vascular calcifications both carotid siphons and vertebral arteries. . VENTRICLES: No obstructive hydrocephalus. CALVARIUM: Calvarium intact open PARANASAL SINUSES: Unremarkable as visualized. No significant inflammatory changes. Mild mucosal thickening left chamber sphenoid sinus MASTOID AIR CELLS: Unremarkable as visualized. No inflammatory changes. OTHER FINDINGS: Changes of bilateral cataract surgery. IMPRESSION: No acute intracranial hemorrhage. Mild to moderate chronic white matter ischemic changes. Note that the possibility of a small hyperacute infarct cannot be excluded on this exam Moderate to significant generalized volume loss.
[2018-02-16] MEDS ORDERED: Patient's Own Med (Cyclosporine [Restasis] 1 DROP) LEFTEYE SCH (11:45)
[2018-02-16] MEDS ORDERED: Lubricant Eye Drops UD OD SCH (13:00)
[2018-02-16] MEDS: PrednisoLONE 1% OPTH SUSP OD SCH ×3 (14:30→21:13)
--- NOTE | 2018-02-16 15:03 | CP.PCM.PCO ---
Assessment/Plan - Assessment and Plan (Free Text) Assessment: Patient seen and examined Resuscitation status address with NOK daughter Amanda Chamberlain , pt is DNI, Discussed with attending Dr Mcginnis and ordered.
[2018-02-16] MEDS: Insulin Regular 100 units/ml SC SCH ×2 (16:30→21:42)
[2018-02-16] MEDS ORDERED: Piperacillin/Tazobact 3.375 GM in Sodium Chloride 0.9% 100 ML IVPB SCH (17:00)
--- NOTE | 2018-02-16 19:17 | CP.PCM.PN ---
Subjective - Date & Time of Evaluation Date of Evaluation: 02/16/18 Time of Evaluation: 19:16 - Subjective Subjective: ID NOTE PATIENT EXAMINED ,EMR REVIEWED HAVE STARTED MEROPENEM HAS C.DIFF,START FLAGYL Objective - Vital Signs/Intake and Output Vital Signs (last 24 hours): Temp Pulse Resp BP Pulse Ox 97.7 F 79 14 126/58 L 96 02/16/18 16:49 02/16/18 16:49 02/16/18 16:49 02/16/18 16:49 02/16/18 16:49 Intake and Output: 02/16/18 02/17/18 18:59 06:59 Intake Total 1430 Output Total 350 Balance 1080 - Medications Medications: Current Medications Atorvastatin Calcium (Lipitor) 40 mg PO HS [facility] Brimonidine Tartrate (Alphagan 0.2% Opht) 1 drop OS Q12 [facility] Cholecalciferol (Vitamin D) 1,000 intlu PO DAILY [facility] Clopidogrel Bisulfate (Plavix) 75 mg PO DAILY [facility] Donepezil HCl (Aricept) 10 mg PO HS [facility] Glipizide (Glucotrol Xl) 2.5 mg PO BRK [facility] Dextrose/Sodium Chloride (Dextrose 5%-0.9% Ns 500 Ml) 1,000 mls @ 100 mls/hr IV .Q10H [facility] Last Admin: 02/16/18 16:33 Dose: 100 mls/hr Vancomycin HCl 1 gm/ Sodium (Chloride) 250 mls @ 166.667 mls/hr IVPB DAILY [facility] PRN Reason: Protocol Meropenem 1 gm/ Sodium (Chloride) 100 mls @ 100 mls/hr IVPB Q8 [facility] PRN Reason: Protocol Insulin Human Regular (Humulin R) 0 units SC ACHS [facility] PRN Reason: Protocol Last Admin: 02/16/18 16:30 Dose: 2 unit Latanoprost (Xalatan Opht) 1 drop OD HS [facility] Levothyroxine Sodium (Synthroid) 75 mcg PO DAILY@0630 [facility] Meclizine HCl (Antivert) 25 mg PO TID PRN PRN Reason: Dizziness Memantine (Namenda) 10 mg PO Q12 [facility] Metoprolol Tartrate (Lopressor) 12.5 mg PO DAILY PRN PRN Reason: SBP >139 Prednisolone Acetate (Pred Forte 1% Opht Susp) 1 drop OD QID [facility] Last Admin: 02/16/18 16:17 Dose: 1 unit Risperidone (Risperdal Tab) 0.25 mg PO QAM [facility] Risperidone (Risperdal Tab) 0.5 mg PO HS [facility] Sertraline HCl (Zoloft) 50 mg PO HS [facility] Sitagliptin Phosphate (Januvia) 100 mg PO DAILY [facility] Tamsulosin HCl (Flomax) 0.4 mg PO HS [facility] Timolol Maleate [facility] 1 drop OS Q12 [facility] Last Admin: 02/16/18 17:24 Dose: Not Given - Labs Labs: 02/16/18 05:08 02/16/18 05:08 PT 11.2 Seconds (9.8-13.1) 02/16/18 05:08 INR 1.0 02/16/18 05:08 APTT 29.8 Seconds (25.6-37.1) 02/16/18 05:08
[2018-02-16] MEDS: Brimonidine 0.2% 50 DROP/5 ML BOTTLE OS SCH (21:24)
[2018-02-16] MEDS: Meropenem 1 GM in Sodium Chloride 0.9% 100 ML IVPB SCH (21:27)
[2018-02-16] MEDS: Latanoprost 0.005% Opht SOUTION OD SCH (21:35)
[2018-02-16] MEDS ORDERED: CARBOXYMETHYLCELLULOSE SODIUM RIGHTEYE SCH (22:00)
[2018-02-17 05:56] LABS: HEMOGLOBIN 9.1 g/dL (12.0-16.0); MEAN CELL VOLUME 89.8 fl (81.0-99.0); MEAN CORPUSCULAR HEMOGLOBIN 29.6 pg (27.0-31.0); MEAN CORPUSCULAR HGB CONC 32.9 g/dL (33.0-37.0); RBC 3.07 Mil/uL (3.80-5.20); RED CELL DISTRIBUTION WIDTH 14.9 % (11.5-14.5)
[2018-02-17] MEDS: Levothyroxine 75 MCG TAB PO SCH (05:57)
[2018-02-17] MEDS: Insulin Regular 100 units/ml SC SCH ×4 (06:38→22:08)
--- NOTE | 2018-02-17 06:52 | CON ---
Copied To: Mega Berger MD Attending MD: Mega Berger MD DATE: 02/16/2018 HISTORY OF PRESENT ILLNESS: The patient is an 82-year-old female who was admitted via the ER. She came in for altered mental status prior to arrival. The patient's history was taken mostly from the chart and the patient's daughter said that she around 4 a.m. heard her mother in her room and went to check. She states she went into the room and she was mumbling in response to questions. She also reports she was very pale and cool to touch. She then took her to the emergency room after finding out her fingerstick was 32. She received Glucagon IM on arrival with a slight increase of alertness. The patient had recently been in hospital and discharged after being admitted for UTI. PAST MEDICAL HISTORY: Includes Alzheimer's, anemia, anxiety, CHF, and CVA with partial left eye blindness, left-sided weakness, dementia, depression, diabetes, diverticulitis, fractures of right wrist and elbow, HTN, hypercholesterolemia, hyperlipidemia, hypothyroidism, migraines. PHYSICAL EXAMINATION: GENERAL: She is chronically ill-appearing. HEENT: Head atraumatic, normocephalic. ENT, positive dry mucous membranes. SKIN: Warm. NECK: Supple. HEART: Regular sinus rhythm. Decreased breath sounds at bases. ABDOMEN: Soft. Positive bowel sounds. IMPRESSION: Admitted for hypoglycemia and hypotension, but she also has history of sepsis and multidrug-resistant extended spectrum beta-lactamase Escherichia coli. Also, her white count was 21.5 with a left shift, platelet count 480. At present, she is also positive for Clostridium difficile toxin. The patient will be started on meropenem, continue vancomycin, and started on meropenem 1 g intravenous piggyback every 12 hours and also start anti-Clostridium difficile therapy. Mega Berger MD MTDD
[2018-02-17] MEDS: Cholecalciferol 1,000 INTLU TAB PO SCH (08:14)
[2018-02-17] MEDS: GlipiZIDE 2.5 mg SR Tab PO SCH (08:14)
[2018-02-17] MEDS: Brimonidine 0.2% 50 DROP/5 ML BOTTLE OS SCH ×2 (08:17→21:34)
[2018-02-17] MEDS: Meropenem 1 GM in Sodium Chloride 0.9% 100 ML IVPB SCH ×3 (08:18→16:32)
[2018-02-17] MEDS: PrednisoLONE 1% OPTH SUSP OD SCH ×4 (08:21→21:31)
[2018-02-17 09:10] LABS: ALB/GLOB RATIO 0.8 (1.0-2.1); ALBUMIN 2.6 g/dL (3.5-5.0); ALT/SGPT 30 U/L (9-52); AST/SGOT 37 U/L (14-36); BLOOD UREA NITROGEN 24 mg/dl (7-17); CALCIUM 8.1 mg/dL (8.4-10.2); GFR NON-AFRICAN AMERICAN > 60
[2018-02-17] MEDS ORDERED: Potassium Chloride 20 mEq ER Tab PO ONE (17:31)
[2018-02-17] MEDS: Latanoprost 0.005% Opht SOUTION OD SCH (21:35)
[2018-02-18 05:24] LABS: HEMOGLOBIN 9.3 g/dL (12.0-16.0); MEAN CELL VOLUME 90.1 fl (81.0-99.0); MEAN CORPUSCULAR HGB CONC 32.2 g/dL (33.0-37.0); RBC 3.19 Mil/uL (3.80-5.20); RED CELL DISTRIBUTION WIDTH 15.1 % (11.5-14.5); WHITE BLOOD COUNT 13.5 K/uL (4.8-10.8)
[2018-02-18] MEDS: Levothyroxine 75 MCG TAB PO SCH (05:35)
[2018-02-18 05:49] LABS: BLOOD UREA NITROGEN 14 mg/dl (7-17); CALCIUM 7.7 mg/dL (8.4-10.2); GFR NON-AFRICAN AMERICAN > 60
[2018-02-18] MEDS: Insulin Regular 100 units/ml SC SCH ×4 (06:41→21:33)
[2018-02-18] MEDS: Meropenem 1 GM in Sodium Chloride 0.9% 100 ML IVPB SCH ×3 (08:07→16:22)
[2018-02-18] MEDS: PrednisoLONE 1% OPTH SUSP OD SCH ×4 (08:39→22:06)
[2018-02-18] MEDS: GlipiZIDE 2.5 mg SR Tab PO SCH (08:40)
[2018-02-18] MEDS: Cholecalciferol 1,000 INTLU TAB PO SCH (08:41)
[2018-02-18] MEDS: Brimonidine 0.2% 50 DROP/5 ML BOTTLE OS SCH ×2 (08:43→21:21)
--- NOTE | 2018-02-18 17:22 | CP.PCM.PN ---
Subjective - Date & Time of Evaluation Date of Evaluation: 02/18/18 Time of Evaluation: 17:19 - Subjective Subjective: iI D NOTE WBC:13.5 FROM21.5 CULTURES ARE ALL NEGATIVE F/C.DIFF IS PENDING CONTINUE PRESENT RX Objective - Vital Signs/Intake and Output Vital Signs (last 24 hours): Temp Pulse Resp BP Pulse Ox 98.7 F 87 18 127/63 96 02/18/18 16:00 02/18/18 16:00 02/18/18 16:00 02/18/18 16:00 02/18/18 16:00 Intake and Output: 02/18/18 02/18/18 06:59 18:59 Intake Total 1400 1390 Output Total 1600 Balance -200 1390 - Medications Medications: Current Medications Atorvastatin Calcium (Lipitor) 40 mg PO HS [facility] Last Admin: 02/17/18 21:35 Dose: 40 mg Brimonidine Tartrate (Alphagan 0.2% Opht) 1 drop OS Q12 [facility] Last Admin: 02/18/18 08:43 Dose: 1 drop Cholecalciferol (Vitamin D) 1,000 intlu PO DAILY [facility] Last Admin: 02/18/18 08:41 Dose: 1,000 intlu Clopidogrel Bisulfate (Plavix) 75 mg PO DAILY [facility] Last Admin: 02/18/18 08:41 Dose: 75 mg Donepezil HCl (Aricept) 10 mg PO HS [facility] Last Admin: 02/17/18 21:36 Dose: 10 mg Glipizide (Glucotrol Xl) 2.5 mg PO BRK [facility] Last Admin: 02/18/18 08:40 Dose: 2.5 mg Dextrose/Sodium Chloride (Dextrose 5%-0.9% Ns 500 Ml) 1,000 mls @ 100 mls/hr IV .Q10H [facility] Last Admin: 02/18/18 08:37 Dose: 100 mls/hr Vancomycin HCl 1 gm/ Sodium (Chloride) 250 mls @ 166.667 mls/hr IVPB DAILY [facility] PRN Reason: Protocol Last Admin: 02/18/18 08:44 Dose: 166.667 mls/hr Meropenem 1 gm/ Sodium (Chloride) 100 mls @ 100 mls/hr IVPB Q8 [facility] PRN Reason: Protocol Last Admin: 02/18/18 16:22 Dose: 100 mls/hr Insulin Human Regular (Humulin R) 0 units SC ACHS [facility] PRN Reason: Protocol Last Admin: 02/18/18 16:23 Dose: 2 unit Latanoprost (Xalatan Opht) 1 drop OD HS [facility] Last Admin: 02/17/18 21:35 Dose: 1 drop Levothyroxine Sodium (Synthroid) 75 mcg PO DAILY@0630 [facility] Last Admin: 02/18/18 05:35 Dose: 75 mcg Meclizine HCl (Antivert) 25 mg PO TID PRN PRN Reason: Dizziness Last Admin: 02/18/18 08:41 Dose: 25 mg Memantine (Namenda) 10 mg PO Q12 [facility] Last Admin: 02/18/18 08:40 Dose: 10 mg Metoprolol Tartrate (Lopressor) 12.5 mg PO DAILY PRN PRN Reason: SBP >139 Last Admin: 02/17/18 08:14 Dose: 12.5 mg Metronidazole (Flagyl) 250 mg PO Q8 [facility] PRN Reason: Protocol Last Admin: 02/18/18 16:22 Dose: 250 mg Prednisolone Acetate (Pred Forte 1% Opht Susp) 1 drop OD QID [facility] Last Admin: 02/18/18 16:20 Dose: 1 drop Risperidone (Risperdal Tab) 0.25 mg PO QAM [facility] Last Admin: 02/18/18 08:40 Dose: 0.25 mg Risperidone (Risperdal Tab) 0.5 mg PO [facility] Last Admin: 02/17/18 21:36 Dose: 0.5 mg Sertraline HCl (Zoloft) 50 mg PO [facility] Last Admin: 02/17/18 21:36 Dose: 50 mg Sitagliptin Phosphate (Januvia) 100 mg PO DAILY [facility] Last Admin: 02/18/18 08:41 Dose: 100 mg Tamsulosin HCl (Flomax) 0.4 mg PO [facility] Last Admin: 02/17/18 21:36 Dose: 0.4 mg Timolol Maleate (Timoptic 0.5% Ophth Soln) 1 drop OS Q12 [facility] Last Admin: 02/18/18 08:09 Dose: 1 drop - Labs Labs: 02/18/18 04:20 02/18/18 04:20 PT 11.2 Seconds (9.8-13.1) 02/16/18 05:08 INR 1.0 02/16/18 05:08 APTT 29.8 Seconds (25.6-37.1) 02/16/18 05:08
[2018-02-18] MEDS: Latanoprost 0.005% Opht SOUTION OD SCH (22:06)
[2018-02-19] MEDS: Meropenem 1 GM in Sodium Chloride 0.9% 100 ML IVPB SCH ×2 (00:45→09:35)
[2018-02-19] MEDS: Levothyroxine 75 MCG TAB PO SCH (06:32)
[2018-02-19] MEDS: Insulin Regular 100 units/ml SC SCH ×4 (06:34→22:25)
[2018-02-19] MEDS ORDERED: Pneumococcal 23-Valent Vaccine IM ONE (08:03)
[2018-02-19] MEDS: GlipiZIDE 2.5 mg SR Tab PO SCH (09:35)
[2018-02-19] MEDS: Cholecalciferol 1,000 INTLU TAB PO SCH (09:35)
[2018-02-19] MEDS: Brimonidine 0.2% 50 DROP/5 ML BOTTLE OS SCH ×2 (09:36→21:31)
[2018-02-19] MEDS: PrednisoLONE 1% OPTH SUSP OD SCH ×4 (09:36→21:33)
[2018-02-19] MEDS: Vancomycin 500 mg (Oral/Rectal USE) PO SCH ×2 (17:59→21:34)
--- NOTE | 2018-02-19 19:05 | CP.PCM.PN ---
<Santiago Jackson - Last Filed: 02/19/18 19:03> Subjective - Date & Time of Evaluation Date of Evaluation: 02/19/18 Time of Evaluation: 11:25 - Subjective Subjective: 82 y/o F evaluated and examined by bedside with Dr Mcginnis. Pt unable to see, awake, alert, reports feeling OK, seems confused. Pt afebrile with no acute events overnight. Pt transferred to Telemetry yesterday. Objective - Vital Signs/Intake and Output Vital Signs (last 24 hours): Temp Pulse Resp BP Pulse Ox 98.4 F 70 20 137/73 92 L 02/19/18 16:31 02/19/18 16:31 02/19/18 16:31 02/19/18 16:31 02/19/18 16:31 - Medications Medications: Current Medications Atorvastatin Calcium (Lipitor) 40 mg PO HS [facility] Last Admin: 02/18/18 21:24 Dose: 40 mg Brimonidine Tartrate (Alphagan 0.2% Opht) 1 drop OS Q12 [facility] Last Admin: 02/19/18 09:36 Dose: 1 drop Cholecalciferol (Vitamin D) 1,000 intlu PO DAILY [facility] Last Admin: 02/19/18 09:35 Dose: 1,000 intlu Clopidogrel Bisulfate (Plavix) 75 mg PO DAILY [facility] Last Admin: 02/19/18 09:34 Dose: 75 mg Donepezil HCl (Aricept) 10 mg PO HS [facility] Last Admin: 02/18/18 21:24 Dose: 10 mg Glipizide (Glucotrol Xl) 2.5 mg PO BRK [facility] Last Admin: 02/19/18 09:35 Dose: 2.5 mg Insulin Human Regular (Humulin R) 0 units SC [facility] PRN Reason: Protocol Last Admin: 02/19/18 17:58 Dose: Not Given Latanoprost (Xalatan Opht) 1 drop OD [facility] Last Admin: 02/18/18 22:06 Dose: 1 drop Levothyroxine Sodium (Synthroid) 75 mcg PO DAILY@0630 [facility] Last Admin: 02/19/18 06:32 Dose: 75 mcg Meclizine HCl (Antivert) 25 mg PO TID PRN PRN Reason: Dizziness Last Admin: 02/18/18 08:41 Dose: 25 mg Memantine (Namenda) 10 mg PO Q12 [facility] Last Admin: 02/19/18 09:35 Dose: 10 mg Metoprolol Tartrate (Lopressor) 12.5 mg PO DAILY PRN PRN Reason: SBP >139 Last Admin: 02/19/18 09:34 Dose: 12.5 mg Prednisolone Acetate (Pred Forte 1% Opht Susp) 1 drop OD QID [facility] Last Admin: 02/19/18 17:59 Dose: 1 drop Risperidone (Risperdal Tab) 0.25 mg PO QAM [facility] Last Admin: 02/19/18 09:34 Dose: 0.25 mg Risperidone (Risperdal Tab) 0.5 mg PO HS [facility] Last Admin: 02/18/18 21:24 Dose: 0.5 mg Sertraline HCl (Zoloft) 50 mg PO HS [facility] Last Admin: 02/18/18 21:24 Dose: 50 mg Sitagliptin Phosphate (Januvia) 100 mg PO DAILY [facility] Last Admin: 02/19/18 09:34 Dose: 100 mg Tamsulosin HCl (Flomax) 0.4 mg PO [facility] Last Admin: 02/18/18 21:24 Dose: 0.4 mg Timolol Maleate (Timoptic 0.5% Ophth Soln) 1 drop OS Q12 [facility] Last Admin: 02/19/18 09:36 Dose: 1 drop Vancomycin HCl (Vancocin (Oral/Rectal Use)) 125 mg PO Q6 [facility] PRN Reason: Protocol Last Admin: 02/19/18 17:59 Dose: 125 mg - Labs Labs: 02/18/18 04:20 02/18/18 04:20 PT 11.2 Seconds (9.8-13.1) 02/16/18 05:08 INR 1.0 02/16/18 05:08 APTT 29.8 Seconds (25.6-37.1) 02/16/18 05:08 - Constitutional Appears: No Acute Distress - Head Exam Head Exam: ATRAUMATIC, NORMAL INSPECTION - ENT Exam ENT Exam: Mucous Membranes Dry - Neck Exam Neck Exam: Full ROM. absent: Meningismus - Respiratory Exam Respiratory Exam: NORMAL BREATHING PATTERN. absent: Rhonchi, Wheezes - Cardiovascular Exam Cardiovascular Exam: +S1, +S2 - GI/Abdominal Exam GI & Abdominal Exam: Soft. absent: Distended, Guarding, Tenderness - Extremities Exam Extremities Exam: Full ROM. absent: Calf Tenderness, Pedal Edema - Neurological Exam Neurological Exam: Alert, Awake Assessment and Plan (1) C. difficile colitis Status: Suspected - Assessment and Plan (Free Text) Assessment: --Antibiotics changed to PO Vancomycin QID. --Continue management as ordered. --Pt does NOT meet critieria for SIRS. (Pt only has elevated WBC, source of infection, NO tachycardia, NO fever, NO tachypnea) <Morris Mcginnis - Last Filed: 03/10/18 07:42> Subjective - Subjective Subjective: I was present during evaluation and discussed with Dr Renetta smiley plans of care and mgt. Morris Mcginnis M.D. Objective - Vital Signs/Intake and Output Vital Signs (last 24 hours): Temp Pulse Resp BP Pulse Ox 98.1 F 63 16 148/69 94 L 02/20/18 19:56 02/20/18 19:56 02/20/18 19:56 02/20/18 19:56 02/20/18 19:56 - Labs Labs: 02/20/18 05:10 02/18/18 04:20 PT 11.2 Seconds (9.8-13.1) 02/16/18 05:08 INR 1.0 02/16/18 05:08 APTT 29.8 Seconds (25.6-37.1) 02/16/18 05:08 Assessment and Plan (1) Altered mental status Status: Acute (2) C. difficile colitis Status: Suspected (3) Diabetes mellitus type 2 in obese Status: Acute (4) Diarrhea Status: Acute (5) Sepsis Status: Acute
[2018-02-19] MEDS: Latanoprost 0.005% Opht SOUTION OD SCH (21:31)
[2018-02-20] MEDS: Levothyroxine 75 MCG TAB PO SCH (05:36)
[2018-02-20 05:44] LABS: HEMOGLOBIN 9.4 g/dL (12.0-16.0); MEAN CELL VOLUME 88.2 fl (81.0-99.0); RBC 3.14 Mil/uL (3.80-5.20); RED CELL DISTRIBUTION WIDTH 14.9 % (11.5-14.5); WHITE BLOOD COUNT 10.5 K/uL (4.8-10.8)
[2018-02-20] MEDS: Vancomycin 500 mg (Oral/Rectal USE) PO SCH ×3 (06:33→16:56)
[2018-02-20] MEDS: PrednisoLONE 1% OPTH SUSP OD SCH ×3 (09:13→16:53)
[2018-02-20] MEDS: Brimonidine 0.2% 50 DROP/5 ML BOTTLE OS SCH (09:13)
[2018-02-20] MEDS: Insulin Regular 100 units/ml SC SCH ×3 (09:13→16:53)
[2018-02-20] MEDS: Cholecalciferol 1,000 INTLU TAB PO SCH (09:14)
[2018-02-20] MEDS: GlipiZIDE 2.5 mg SR Tab PO SCH (09:16)
[2018-02-20 19:56] VITALS: BP 148/69; PULSE 63; RESP 16; TEMP 98.1; O2SAT 94
--- NOTE | 2018-02-24 15:05 | PQF ---
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 count 480. At present, pos. for Cl- difficile toxin; will be started on meropenem, continue vanc omycin, and started on meropenem 1 g intravenous piggybackevery 12 hrs. and also start anti-Cl- diffi cile therapy. 02/19 Resident progress note: 1) C. difficile colitis Status: Suspected Assessment --Antibiotics changed to PO Vancomycin QID. --Continue management as ordered. --Pt does NOT meet critieria for SIRS. (Pt only has elevated WBC, source of infection, NO tachycardia , NO fever, NO tachypnea) The patient's Clinical Indicators include: xx Query created by: Awilda Cruz on 02/20/2018 9:31 AM Electronically signed by: Morris Mcginnis MD 02/24/2018 3:02 PM
--- NOTE | 2018-02-24 15:05 | PQF ---
PROVIDER RESPONSE TEXT: Cdiff REVIEWER QUERY TEXT: Condition Necessitating Admission Please clarify the medical condition(s) necessitating admission. 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 count 480. At present, pos. for Cl- difficile toxin; will be started on meropenem, continue vanc omycin, and started on meropenem 1 g intravenous piggyback every 12 hrs. and also start anti-Cl- diff icile therapy. 02/19 Resident working with Attending: ISigned progress note: 1) C. difficile colitis Status: Suspecte d --Antibiotics changed to PO Vancomycin QID. --Continue management as ordered. --Pt does NOT meet cr itieria for SIRS. (Pt only has elevated WBC, source of infection, NO tachycardia, NO fever, NO tachyp joseph) Update The patient's Clinical Indicators include: xx Query created by: Awilda Cruz on 02/20/2018 9:43 AM Electronically signed by: Morris Mcginnis MD 02/24/2018 3:02 PM
--- NOTE | 2018-03-10 07:20 | CP.PCM.HP ---
History of Present Illness - History of Present Illness History of Present Illness: This is an 82 y/o female with recurrent hospitalizations for UTI, hx of uncontrolled DM and practically bebbound at home was admitted for hypoglycemia and diarrhea and sudden change in mental status . 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 At the Er she had a foul smelling watery stools. She was just recently discharged and had just finished a course of po antibiotics for recurrent UTI. Past Hx Uncontrolled DM 2 HTN recurrent UTI gait dysfunction TIA Present on Admission - Present on Admission Any Indicators Present on Admission: No History of DVT/PE: No History of Uncontrolled Diabetes: Yes Urinary Catheter: Yes Decubitus Ulcer Present: No Review of Systems - Gastrointestinal Gastrointestinal: Change in Bowel Habits, Cramping, Heartburn - Genitourinary Genitourinary: Dysuria, Flank Pain Past Patient History - Infectious Disease Hx of Infectious Diseases: None - Tetanus Immunizations Tetanus Immunization: Unknown - Past Medical History & Family History Past Medical History?: Yes - Past Social History Smoking Status: Never Smoked - CARDIAC Hx Congestive Heart Failure: Yes Hx Hypercholesterolemia: Yes Hx Hypertension: Yes - PULMONARY Hx Pneumonia: Yes - NEUROLOGICAL Hx Alzheimer's Disease: Yes Hx Dementia: Yes Hx Migraine: Yes Hx Transient Ischemic Attacks (TIA): Yes - HEENT Hx HEENT Problems: Yes Hx Blind: No Hx Cataracts: Yes Hx Deafness: No Hx Difficulty Chewing: No Hx Epistaxis: No Hx Glaucoma: Yes Hx Macular Degeneration: No Hx Sinusitis: No Other/Comment: corneal transplant - RENAL Hx Chronic Kidney Disease: No - ENDOCRINE/METABOLIC Hx Hypothyroidism: Yes - HEMATOLOGICAL/ONCOLOGICAL Hx Anemia: Yes Hx Human Immunodeficiency Virus (HIV): No - INTEGUMENTARY Hx Dermatological Problems: No Hx Basil Cell: No Hx Duke: No Hx Cellulitis: No Hx Eczema: No Hx Melanoma: No Hx Psoriasis: No Hx Squamous Cell: No - MUSCULOSKELETAL/RHEUMATOLOGICAL Hx Arthritis: No Hx Fractures: Yes (rt wrist/elbow) - GASTROINTESTINAL Hx Diverticulitis: Yes (Diverticulosis) Hx Gastritis: Yes - GENITOURINARY/GYNECOLOGICAL Hx Genitourinary Disorders: Yes Hx Bladder Cancer: No Hx Bladder Stone: No Hx Cervical Cancer: No Hx Hematuria: No Hx Incontinence: Yes Hx Ovarian Cancer: No Hx Postmenopausal Bleeding: No Hx Reproductive Disorders: No Hx Sexually Transmitted Disorders: No Hx Uterine Cancer: No Hx Urinary Tract Infection: Yes Other/Comment: uterine prolapse - PSYCHIATRIC Hx Anxiety: Yes Hx Depression: Yes - SURGICAL HISTORY Hx Coronary Artery Bypass Graft: No Hx Tonsillectomy: Yes (partial thyroidectomy) - ANESTHESIA Hx Anesthesia: Yes Hx Anesthesia Reactions: Yes (HALLUCINATION, CONFUSION) Hx Malignant Hyperthermia: No Has any member of the family had a problem w/ anesthesia?: Yes Meds Home Medications: Home Medication List Medication Instructions Recorded Confirmed Type Vancomycin [Vancocin (ORAL OR 125 mg PO QID #40 soln 02/20/18 Rx RECTAL USE)] Allergies/Adverse Reactions: Allergies Allergy/AdvReac Type Severity Reaction Status Date / Time aspirin Allergy NAUSEA Verified 02/16/18 04:50 ciprofloxacin Allergy REDNESS Verified 02/16/18 04:50 Sulfa (Sulfonamide Allergy RASH Verified 02/16/18 04:50 Antibiotics) Iodinated Contrast- Oral and AdvReac VOMITING Verified 02/16/18 04:50 IV Dye metformin AdvReac DIARRHEA Verified 02/16/18 04:50 Physical Exam - Constitutional Appears: Agitated, Chronically Ill - Head Exam Head Exam: NORMAL INSPECTION - ENT Exam ENT Exam: Mucous Membranes Dry - Respiratory Exam Respiratory Exam: Decreased Breath Sounds, NORMAL BREATHING PATTERN - Cardiovascular Exam Cardiovascular Exam: REGULAR RHYTHM - GI/Abdominal Exam GI & Abdominal Exam: Normal Bowel Sounds - Neurological Exam Neurological exam: Altered Results - Vital Signs Recent Vital Signs: Last Vital Signs Temp 98.1 F 02/20/18 19:56 Pulse 63 02/20/18 19:56 Resp 16 02/20/18 19:56 BP 148/69 02/20/18 19:56 Pulse Ox 94 L 02/20/18 19:56 - Labs Result Diagrams: 02/20/18 05:10 02/18/18 04:20 Assessment & Plan (1) Altered mental status Status: Acute Priority: High (2) C. difficile colitis Status: Suspected (3) Diabetes mellitus type 2 in obese Status: Acute (4) Diarrhea Status: Acute - Assessment and Plan (Free Text) Plan: keep NPO start iv antibiotic flagyl po vanco ID consult hydrate protonix.
--- NOTE | 2018-03-10 07:29 | CP.PCM.PN ---
Subjective - Date & Time of Evaluation Date of Evaluation: 02/17/18 Time of Evaluation: 10:00 - Subjective Subjective: Patient is much more hydrated Still with watery stools Noted decrease in WBC to 14 Has no fever. BP is better. Objective - Vital Signs/Intake and Output Vital Signs (last 24 hours): Temp Pulse Resp BP Pulse Ox 98.1 F 63 16 148/69 94 L 02/20/18 19:56 02/20/18 19:56 02/20/18 19:56 02/20/18 19:56 02/20/18 19:56 - Labs Labs: 02/20/18 05:10 02/18/18 04:20 PT 11.2 Seconds (9.8-13.1) 02/16/18 05:08 INR 1.0 02/16/18 05:08 APTT 29.8 Seconds (25.6-37.1) 02/16/18 05:08 - Head Exam Head Exam: NORMAL INSPECTION - Eye Exam Eye Exam: Normal appearance - Respiratory Exam Respiratory Exam: Clear to Ausculation Bilateral - Cardiovascular Exam Cardiovascular Exam: REGULAR RHYTHM - GI/Abdominal Exam GI & Abdominal Exam: Normal Bowel Sounds - Neurological Exam Neurological Exam: Altered, Awake, Oriented x3 Assessment and Plan (1) Altered mental status Status: Acute (2) C. difficile colitis Status: Suspected (3) Diabetes mellitus type 2 in obese Status: Acute (4) Diarrhea Status: Acute (5) Sepsis Status: Acute - Assessment and Plan (Free Text) Plan: Cont medications flagyl vacnco Hydrate start po meds start diet repeat CBC in am cont all meds.
--- NOTE | 2018-03-10 07:39 | CP.PCM.PN ---
Subjective - Date & Time of Evaluation Date of Evaluation: 02/17/18 Time of Evaluation: 11:00 - Subjective Subjective: patient has improved a lot clinically Much more conversant Has no fever BP has stabilized WBC dropped to 14. Objective - Vital Signs/Intake and Output Vital Signs (last 24 hours): Temp Pulse Resp BP Pulse Ox 98.1 F 63 16 148/69 94 L 02/20/18 19:56 02/20/18 19:56 02/20/18 19:56 02/20/18 19:56 02/20/18 19:56 - Labs Labs: 02/20/18 05:10 02/18/18 04:20 PT 11.2 Seconds (9.8-13.1) 02/16/18 05:08 INR 1.0 02/16/18 05:08 APTT 29.8 Seconds (25.6-37.1) 02/16/18 05:08 - Head Exam Head Exam: NORMAL INSPECTION - Eye Exam Eye Exam: Normal appearance - ENT Exam ENT Exam: Mucous Membranes Moist - Respiratory Exam Respiratory Exam: NORMAL BREATHING PATTERN - Cardiovascular Exam Cardiovascular Exam: REGULAR RHYTHM - GI/Abdominal Exam GI & Abdominal Exam: Normal Bowel Sounds Assessment and Plan (1) Altered mental status Status: Acute (2) C. difficile colitis Status: Suspected (3) Diabetes mellitus type 2 in obese Status: Acute (4) Diarrhea Status: Acute (5) Sepsis Status: Acute - Assessment and Plan (Free Text) Plan: Cont meds Con ttx Cont Iv flagyly and po vanco hydrate monitor cbc FBS cont meds
--- NOTE | 2018-03-10 07:42 | CP.PCM.PN ---
Subjective - Date & Time of Evaluation Date of Evaluation: 02/18/18 Time of Evaluation: 11:00 - Subjective Subjective: Patient continues to improve a lot WBC now is 13 has no fever Started to eat. tolerating all meds. stools are more formed. Objective - Vital Signs/Intake and Output Vital Signs (last 24 hours): Temp Pulse Resp BP Pulse Ox 98.1 F 63 16 148/69 94 L 02/20/18 19:56 02/20/18 19:56 02/20/18 19:56 02/20/18 19:56 02/20/18 19:56 - Labs Labs: 02/20/18 05:10 02/18/18 04:20 PT 11.2 Seconds (9.8-13.1) 02/16/18 05:08 INR 1.0 02/16/18 05:08 APTT 29.8 Seconds (25.6-37.1) 02/16/18 05:08 - Head Exam Head Exam: NORMAL INSPECTION - Eye Exam Eye Exam: Normal appearance - ENT Exam ENT Exam: Mucous Membranes Moist - Respiratory Exam Respiratory Exam: Clear to Ausculation Bilateral - Cardiovascular Exam Cardiovascular Exam: REGULAR RHYTHM - GI/Abdominal Exam GI & Abdominal Exam: Normal Bowel Sounds Assessment and Plan (1) Altered mental status Status: Acute (2) C. difficile colitis Status: Suspected (3) Diabetes mellitus type 2 in obese Status: Acute (4) Diarrhea Status: Acute (5) Sepsis Status: Acute - Assessment and Plan (Free Text) Plan: Cont meds Con ttx Cont hydration advance diet Cont iv and po antibiotics
--- NOTE | 2018-03-10 07:47 | CP.PCM.DIS ---
Provider - Provider Date of Admission: 02/16/18 06:31 Attending physician: Morris Mcginnis MD Primary care physician: Morris Mcginnis MD Time Spent in preparation of Discharge (in minutes): 30 Diagnosis - Discharge Diagnosis (1) Altered mental status Status: Acute Priority: High (2) C. difficile colitis Status: Suspected (3) Diabetes mellitus type 2 in obese Status: Acute (4) Diarrhea Status: Acute (5) Sepsis Status: Acute Hospital Course - Lab Results Lab Results: Micro Results 02/16/18 05:38 Blood Blood Culture - Final NO GROWTH AFTER 5 DAYS 02/16/18 05:38 Blood Gram Stain - Final TEST NOT PERFORMED 02/16/18 05:08 Blood Blood Culture - Final NO GROWTH AFTER 5 DAYS 02/16/18 05:08 Blood Gram Stain - Final TEST NOT PERFORMED 02/19/18 06:50 Naris MRSA Culture (Admit) - Final MRSA NOT DETECTED 02/16/18 05:08 Stool Stool Culture - Final NO SALMONELLA, SHIGELLA OR CAMPYLOBACTER ISOLATED. 02/16/18 12:20 Naris MRSA Culture (Admit) - Final MRSA NOT DETECTED 02/16/18 05:59 Urine,Catheterized Urine Culture - Final No Growth (<1,000 CFU/ML) Most Recent Lab Values WBC 10.5 K/uL (4.8-10.8) 02/20/18 05:10 RBC 3.14 Mil/uL (3.80-5.20) L 02/20/18 05:10 Hgb 9.4 g/dL (12.0-16.0) L 02/20/18 05:10 Hct 27.7 % (34.0-47.0) L 02/20/18 05:10 MCV 88.2 fl (81.0-99.0) 02/20/18 05:10 MCH 30.0 pg (27.0-31.0) 02/20/18 05:10 MCHC 34.0 g/dL (33.0-37.0) 02/20/18 05:10 RDW 14.9 % (11.5-14.5) H 02/20/18 05:10 Plt Count 272 K/uL (130-400) 02/20/18 05:10 MPV 9.5 fl (7.2-11.7) 02/16/18 05:08 Neut % (Auto) 80.0 % (50.0-75.0) H 02/16/18 05:08 Lymph % (Auto) 3.3 % (20.0-40.0) L 02/16/18 05:08 [place] % (Auto) 6.5 % (0.0-10.0) 02/16/18 05:08 Eos % (Auto) 10.0 % (0.0-4.0) H 02/16/18 05:08 Baso % (Auto) 0.2 % (0.0-2.0) 02/16/18 05:08 Neut # (Auto) 17.2 K/uL (1.8-7.0) H 02/16/18 05:08 Lymph # (Auto) 0.7 K/uL (1.0-4.3) L 02/16/18 05:08 [place] # (Auto) 1.4 K/uL (0.0-0.8) H 02/16/18 05:08 Eos # (Auto) 2.2 K/uL (0.0-0.7) H 02/16/18 05:08 Baso # (Auto) 0.0 K/uL (0.0-0.2) 02/16/18 05:08 Neutrophils % (Manual) 74 % (42-75) 02/16/18 05:08 Band Neutrophils % 2 % (0-2) 02/16/18 05:08 Lymphocytes % (Manual) 3 % (20-50) L 02/16/18 05:08 Monocytes % (Manual) 8 % (0-10) 02/16/18 05:08 Eosinophils % (Manual) 10 % (0-7) H 02/16/18 05:08 Basophils % (Manual) 1 % (0-2) 02/16/18 05:08 Metamyelocytes % 2 % (0-0) H 02/16/18 05:08 Platelet Estimate Increased (NORMAL) H 02/16/18 05:08 PT 11.2 Seconds (9.8-13.1) 02/16/18 05:08 INR 1.0 02/16/18 05:08 APTT 29.8 Seconds (25.6-37.1) 02/16/18 05:08 pO2 43 mm/Hg (30-55) 02/16/18 05:43 VBG pH 7.36 (7.32-7.43) 02/16/18 05:43 VBG pCO2 48 mmHg (40-60) 02/16/18 05:43 VBG HCO3 25.1 mmol/L 02/16/18 05:43 VBG Total CO2 28.6 mmol/L (22-28) H 02/16/18 05:43 VBG O2 Sat (Calc) 82.1 % (40-65) H 02/16/18 05:43 VBG Base Excess 1.0 mmol/L (0.0-2.0) 02/16/18 05:43 VBG Potassium 4.2 mmol/L (3.6-5.2) 02/16/18 05:43 Sodium 135.0 mmol/L (132-148) 02/16/18 05:43 Chloride 106.0 mmol/L (98-107) 02/16/18 05:43 Glucose 89 mg/dL (65-105) 02/16/18 05:43 Lactate 1.7 mmol/L (0.7-2.1) 02/16/18 05:43 FiO2 21.0 % 02/16/18 05:43 Sodium 137 mmol/l (132-148) 02/18/18 04:20 Potassium 3.6 MMOL/L (3.6-5.0) 02/18/18 04:20 Chloride 107 mmol/L (98-107) 02/18/18 04:20 Carbon Dioxide 22 mmol/L (22-30) 02/18/18 04:20 Anion Gap 12 (10-20) 02/18/18 04:20 BUN 14 mg/dl (7-17) 02/18/18 04:20 Creatinine 0.6 mg/dl (0.7-1.2) L 02/18/18 04:20 Est GFR ( Amer) > 60 02/18/18 04:20 Est GFR (Non-Af Amer) > 60 02/18/18 04:20 POC Glucose (mg/dL) 164 mg/dL (65-110) H 02/20/18 15:34 Random Glucose 185 mg/dL (65-105) H 02/18/18 04:20 Calcium 7.7 mg/dL (8.4-10.2) L 02/18/18 04:20 Phosphorus 2.4 mg/dl (2.5-4.5) L 02/17/18 04:00 Magnesium 1.9 MG/DL (1.6-2.3) 02/17/18 04:00 Total Bilirubin 0.3 mg/dl (0.2-1.3) 02/17/18 04:00 AST 37 U/L (14-36) H D 02/17/18 04:00 ALT 30 U/L (9-52) 02/17/18 04:00 Alkaline Phosphatase 78 U/L (38-126) 02/17/18 04:00 Troponin I < 0.0120 ng/mL (0.00-0.120) 02/16/18 05:08 NT-Pro-B Natriuret Pep 1410 pg/ml (0-900) H 02/16/18 05:08 Total Protein 5.9 G/DL (6.3-8.2) L 02/17/18 04:00 Albumin 2.6 g/dL (3.5-5.0) L 02/17/18 04:00 Globulin 3.3 gm/dL (2.2-3.9) 02/17/18 04:00 Albumin/Globulin Ratio 0.8 (1.0-2.1) L 02/17/18 04:00 Venous Blood Potassium 4.2 mmol/L (3.6-5.2) 02/16/18 05:43 Urine Color Yellow (YELLOW) 02/16/18 05:59 Urine Clarity Cloudy (Clear) 02/16/18 05:59 Urine pH 6.0 (5.0-8.0) 02/16/18 05:59 Ur Specific [place] 1.019 (1.003-1.030) 02/16/18 05:59 Urine Protein 100 mg/dL (NEGATIVE) 02/16/18 05:59 Urine Glucose (UA) 50 mg/dL (Normal) 02/16/18 05:59 Urine Ketones Negative mg/dL (NEGATIVE) 02/16/18 05:59 Urine Blood Negative (NEGATIVE) 02/16/18 05:59 Urine Nitrate Negative (NEGATIVE) 02/16/18 05:59 Urine Bilirubin Negative (NEGATIVE) 02/16/18 05:59 Urine Urobilinogen 2.0 mg/dL (0.2-1.0) H 02/16/18 05:59 Ur Leukocyte Esterase Trace Ajay/uL (Negative) 02/16/18 05:59 Urine RBC (Auto) 11 /hpf (0-3) H 02/16/18 05:59 Urine Microscopic WBC 22 /hpf (0-5) H 02/16/18 05:59 Ur Squamous Epith Cells 32 /hpf (0-5) H 02/16/18 05:59 Urine Bacteria Rare (<OCC) 02/16/18 05:59 Hyaline Casts 11-20 /hpf (0-2) H 02/16/18 05:59 C. difficile Ag & Toxin Positive (NEGATIVE) H 02/16/18 05:08 - Hospital Course Hospital Course: This is an 82 y/o female admitted for C diff colitis and sepsis and hypoglycemia. She was noted by daughter to have a sudden change in mental status and severe hypoglycemia. She had just finished a course of antibiotics for UTI. Has a hx of uncontrolled DM 2. She was admitted to telemetry for sepsis and Id was called. Started on po and IV antibiotics for c diff. She responded very well. and was discharge in stable condition on vancomycin po. Discharge Exam - Head Exam Head Exam: NORMAL INSPECTION - Eye Exam Eye Exam: Normal appearance - Respiratory Exam Respiratory Exam: NORMAL BREATHING PATTERN - Cardiovascular Exam Cardiovascular Exam: REGULAR RHYTHM - GI/Abdominal Exam GI & Abdominal Exam: Normal Bowel Sounds - Exam External exam: NORMAL EXTERNAL EXAM Discharge Plan - Discharge Medications Prescriptions: Vancomycin [Vancocin (ORAL OR RECTAL USE)] 125 mg PO QID #40 soln - Follow Up Plan Condition: SERIOUS Disposition: HOME/ ROUTINE Instructions: Sepsis (DC) Additional Instructions: advised follow up in 2 weeks will monitor cbc cmp lytes. Referrals: Morris Mcginnis MD [Primary Care Provider] -
== END 2018-02-20 21:00 | disposition home or self-care (01) | DRG 872 ==
LOC: H.ER 04:49 → H.ERHOLD 06:31 → H.ICU/CCU 10:00 → H.TEL 02-18 21:03
PROVIDERS: ADMIT Family Medicine; ATTEND Family Medicine
PROC: 3E0234Z Introduction of Serum, Toxoid and Vaccine into Muscle, Percutaneous Approach (ICD-10-PCS; principal; 2018-02-19)
DX: A41.9 Sepsis, unspecified organism (principal); A04.72 Enterocolitis due to Clostridium difficile, not specified as recurrent; N39.0 Urinary tract infection, site not specified; I69.354 Hemiplegia and hemiparesis following cerebral infarction affecting left non-dominant side; B96.20 Unspecified Escherichia coli [E. coli] as the cause of diseases classified elsewhere; E11.649 Type 2 diabetes mellitus with hypoglycemia without coma; F02.80 Dementia in other diseases classified elsewhere, unspecified severity, without behavioral disturbance, psychotic disturbance, mood disturbance, and anxiety; G30.9 Alzheimer's disease, unspecified; I11.0 Hypertensive heart disease with heart failure; I50.9 Heart failure, unspecified; Z16.24 Resistance to multiple antibiotics; E78.00 Pure hypercholesterolemia, unspecified; E78.5 Hyperlipidemia, unspecified; E03.9 Hypothyroidism, unspecified; R26.89 Other abnormalities of gait and mobility; D64.9 Anemia, unspecified; F41.9 Anxiety disorder, unspecified; G43.909 Migraine, unspecified, not intractable, without status migrainosus; H54.62 Unqualified visual loss, left eye, normal vision right eye; K29.70 Gastritis, unspecified, without bleeding; E66.9 Obesity, unspecified; Z23 Encounter for immunization; Z74.01 Bed confinement status; Z79.4 Long term (current) use of insulin; Z79.84 Long term (current) use of oral hypoglycemic drugs; Z79.02 Long term (current) use of antithrombotics/antiplatelets; Z88.6 Allergy status to analgesic agent; Z88.1 Allergy status to other antibiotic agents; Z88.2 Allergy status to sulfonamides; Z87.01 Personal history of pneumonia (recurrent); Z87.440 Personal history of urinary (tract) infections

== ENCOUNTER 2018-04-15 05:11 | Inpatient (IN) | payer MEDICARE ==
[2018-04-15 05:11] VITALS: BMI 23.9
[2018-04-15] MEDS ORDERED: Sodium Chloride 0.9% 1,000 ML IV STA (07:18)
--- NOTE | 2018-04-15 08:13 | ED PDOC ---
HPI: Female Pain Time Seen by Provider: 04/15/18 07:05 Chief Complaint (Nursing): Female Genitourinary Chief Complaint (Provider): Urinary Retention, Abdominal Pain History Per: Family (Daughter) History/Exam Limitations: no limitations Onset/Duration Of Symptoms: Days Current Symptoms Are (Timing): Still Present Additional Complaint(s): 82 year old female, with a PMHx of dementia, anemia, CHF, HTN, hypercholesterolemia, hypothyroidism, CVA, diabetes, diverticulitis, and pneumonia, presenting with daughter for evaluation of urinary retention and abdominal pain x7 hours. Daughter reports the patient similar complaints 01/2018 which required admission to this facility and placement of a catheter. Daughter states patient woke up around 0000 with the urge to urinate and some complaints of abdominal pain. Patient states she placed a bed ha and the patient was successfully able to urinate. Daughter states the patient later woke up at 0300 screaming in pain and with an urge to urinate. She states the patient was unable to urinate and the patient's abdomen felt hard and distended. She reports the patient has otherwise been eating and passing stools as usual. She reports the patient's last drink was 1900, and her last bowel movement was 0230. She denies any complaints of dysuria, hematuria, nausea, vomiting, diarrhea, fever, cough, chest pain, or shortness of breath. Daughter reports patient has recently had some complaints of neck pain, as well as chills which she states are usual for the patient. PMD: Dr. Madi Schroeder/Dr. 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; L side weakness), Dementia, Depression, Diabetes, Diverticulitis (Diverticulosis), Fractures (rt wrist/elbow), Gastritis, HTN, Hypercholesterolemia, Hyperlipidemia, Hypothyroidism, Migraine, Peripheral Edema (occasional lower extremities), Pneumonia, TIA Denies: Arthritis, Asthma, Atrial Fibrillation, Bipolar Disorder, Bronchitis, CAD, Cardia Arrhythmia, COPD, Crohn's Disease, Emphysema, Gall Bladder Disease, HIV, Hyperthyroidism, Kidney Stones, Mitral Valve Prolapse, Multiple Sclerosis, Osteoporosis, Pancreatitis, Paranoia, Parkinson's Disease, Post Traumatic Stress Disorder, Pulmonary Embolism, Chronic Kidney Disease, Rheumatoid Arthritis, Schizophrenia, Seizures, Sickle Cell Disease, Sexually Transmitted Disease, Sleep Apnea - Surgical History Surgical History: Tonsillectomy (partial thyroidectomy) Denies: Appendectomy, CABG, Carotid Endarterectomy, Cholecystectomy, Coronary Stent, Pacemaker - Family History Family History: States: Unknown Family Hx - Home Medications Home Medications: Ambulatory Orders Medication Instructions Recorded Acetaminophen/Butalbital/Caf 1 tab PO Q8H PRN 08/23/15 [Fioricet] Atorvastatin [Lipitor] 40 mg PO HS 08/23/15 Latanoprost 0.005% Opht [Xalatan 1 drop LEFTEYE HS 08/23/15 Opht] Meclizine HCl [Antivert] 25 mg PO TID PRN 08/23/15 Memantine [Namenda] 10 mg PO Q12 08/23/15 Prednisolone Acetate [Pred Forte] 1 drop LEFTEYE QID 08/23/15 Metoprolol Tartrate [Lopressor] 12.5 mg PO DAILY PRN 10/02/16 Brimonidine Tartrate/Timolol 1 drop LEFTEYE Q12 06/10/17 [Combigan 0.2%-0.5% Eye Drops] Insulin Aspart Prot/Insuln Asp 10 unit SC DIN 06/10/17 [Novolog Mix 70-30 Vial] Insulin Aspart Prot/Insuln Asp 40 unit SC BRK 06/10/17 [Novolog Mix 70-30 Vial] Ranitidine HCl [Zantac] 150 mg PO BID 06/10/17 cycloSPORINE [Restasis] 1 drop LEFTEYE Q12H 06/10/17 risperiDONE [RisperDAL Tab] 0.25 mg PO QAM 06/10/17 Aspirin [Ecotrin] 81 mg PO Q48H 12/16/17 Carboxymethylcellulose Sodium 1 drop RIGHTEYE HS 12/16/17 [Lubricant Eye Drops] Cholecalciferol [Vitamin D 1000 IU] 1,000 intlu PO DAILY tab 02/14/18 Clopidogrel [Plavix] 75 mg PO DAILY tab 02/14/18 Donepezil [Aricept] 10 mg PO HS tab 02/14/18 GlipiZIDE SR [Glucotrol XL] 2.5 mg PO BRK tab 02/14/18 Insulin Human Regular [HumuLIN R] 0 units SC ACHS ml 02/14/18 Levothyroxine [Synthroid] 75 mcg PO DAILY@0630 tab 02/14/18 Polyvinyl Alcohol/Povidone 0.3 ml OD TID drpette 02/14/18 [Refresh Opth Soln] Ramipril [Altace] 5 mg PO DAILY cap 02/14/18 SITagliptin [Januvia] 100 mg PO DAILY tab 02/14/18 Sertraline [Zoloft] 50 mg PO HS tab 02/14/18 Tamsulosin [Flomax] 0.4 mg PO HS cap 02/14/18 Timolol 0.5% Ophth [Timoptic 0.5% 1 drop OS Q12 bottle 02/14/18 Ophth Soln] risperiDONE [RisperDAL Tab] 0.5 mg PO HS tab 02/14/18 Vancomycin [Vancocin (ORAL OR 125 mg PO QID #40 soln 02/20/18 RECTAL USE)] - Allergies Allergies/Adverse Reactions: Allergies Allergy/AdvReac Type Severity Reaction Status Date / Time aspirin Allergy NAUSEA Verified 02/16/18 04:50 ciprofloxacin Allergy REDNESS Verified 02/16/18 04:50 Sulfa (Sulfonamide Allergy RASH Verified 02/16/18 04:50 Antibiotics) Iodinated Contrast- Oral and AdvReac VOMITING Verified 02/16/18 04:50 IV Dye metformin AdvReac DIARRHEA Verified 02/16/18 04:50 Review of Systems Constitutional: Positive for: Chills. Negative for: Fever Cardiovascular: Negative for: Chest Pain Respiratory: Negative for: Cough, Shortness of Breath Gastrointestinal: Positive for: Abdominal Pain. Negative for: Nausea, Vomiting, Diarrhea, Constipation, Melena, Hematochezia Genitourinary Female: Positive for: Other (urinary retention). Negative for: Dysuria, Hematuria, Vaginal Discharge, Vaginal Bleeding Musculoskeletal: Positive for: Neck Pain Physical Exam - Reviewed Nursing Documentation Reviewed: Yes Vital Signs Reviewed: Yes - Physical Exam Appears: Positive for: Non-toxic, No Acute Distress (sleeping comfortably in bed) Head Exam: Positive for: ATRAUMATIC, NORMAL INSPECTION, NORMOCEPHALIC Skin: Positive for: Normal Color, Warm, Dry. Negative for: Rash ENT: Positive for: Normal ENT Inspection Neck: Positive for: Normal, Painless ROM, Supple Cardiovascular/Chest: Positive for: Regular Rate, Rhythm. Negative for: Murmur Respiratory: Positive for: Normal Breath Sounds. Negative for: Respiratory Dis tress Gastrointestinal/Abdominal: Positive for: Soft, Other (10cm x 10cm suprapubic fullness) Back: Positive for: Other (some decubitus skin breakdown to the sacral area) Extremity: Positive for: Normal ROM. Negative for: Pedal Edema, Deformity, Swelling Neurologic/Psych: Positive for: Other (Patient is non-verbal; sleeping in bed) - Laboratory Results Result Diagrams: 04/15/18 08:45 04/15/18 08:45 - ECG O2 Sat by Pulse Oximetry: 96 (RA) Pulse Ox Interpretation: Normal Medical Decision Making Medical Decision Makin Impression: Urinary retention Plan: -VBG Shock Panel -CMP -CBC -NS 1L at 125mL/hour -Blood culture -Urine culture -Solis catheter -Urinalysis -Reevaluation Scribe Attestation: Documented by Richard Lanier, acting as a scribe for Joelle Santana MD. Provider Scribe Attestation: All medical record entries made by the Scribe were at my direction and personally dictated by me. I have reviewed the chart and agree that the record accurately reflects my personal performance of the history, physical exam, medical decision making, and the department course for this patient. I have also personally directed, reviewed, and agree with the discharge instructions and disposition. Disposition - Clinical Impression Clinical Impression: Urinary tract infection, Urinary retention - Patient ED Disposition Is Patient to be Admitted: Yes Doctor Will See Patient In The: Hospital Counseled Patient/Family Regarding: Diagnosis, Need For Followup - Disposition Disposition: Transfer of Care Disposition Time: 10:00 Condition: FAIR Forms: [employer] (Senegalese) - POA Present On Arrival: Pressure Ulcer
[2018-04-15 09:07] LABS: VENOUS BLOOD GAS BASE EXCESS 9.6 mmol/L (0.0-2.0); VENOUS BLOOD GAS PCO2 61 mmHg (40-60); VENOUS BLOOD GAS PO2 21 mm/Hg (30-55); VENOUS BLOOD PH 7.39 (7.32-7.43)
[2018-04-15 09:17] LABS: ALB/GLOB RATIO 0.9 (1.0-2.1); ALBUMIN 3.6 g/dL (3.5-5.0); ALT/SGPT 22 U/L (9-52); AST/SGOT 27 U/L (14-36); BASO # 0.1 K/uL (0.0-0.2); BLOOD UREA NITROGEN 25 mg/dl (7-17); CALCIUM 9.4 mg/dL (8.4-10.2); EOS % 0.4 % (0.0-4.0); GFR NON-AFRICAN AMERICAN > 60; HEMOGLOBIN 12.2 g/dL (12.0-16.0); LYMPH # 2.4 K/uL (1.0-4.3); LYMPH % 23.7 % (20.0-40.0); MEAN CELL VOLUME 88.8 fl (81.0-99.0); MEAN CORPUSCULAR HEMOGLOBIN 29.7 pg (27.0-31.0); MEAN CORPUSCULAR HGB CONC 33.5 g/dL (33.0-37.0); MEAN PLATELET VOLUME 9.7 fl (7.2-11.7); MONO # 0.8 K/uL (0.0-0.8); MONO % 7.7 % (0.0-10.0); NEUT # 6.9 K/uL (1.8-7.0); NEUT % 67.2 % (50.0-75.0); NRBC % 0.1 % (0.0-0.0); RBC 4.11 Mil/uL (3.80-5.20); RED CELL DISTRIBUTION WIDTH 14.1 % (11.5-14.5); WHITE BLOOD COUNT 10.2 K/uL (4.8-10.8)
[2018-04-15 09:29] LABS: SQUAMOUS EPITHIAL < 1 /hpf (0-5); URINE BACTERIA MOD (<OCC); URINE BILIRUBIN NEGATIVE (NEGATIVE); URINE BLOOD SMALL (NEGATIVE); URINE CLARITY CLOUDY (Clear); URINE COLOR YELLOW (YELLOW); URINE GLUCOSE (UA) >=500 mg/dL (Normal); URINE LEUKOCYTE ESTERASE LARGE Leu/uL (Negative); URINE PROTEIN 100 mg/dL (NEGATIVE); URINE UROBILINOGEN 0.2-1.0 mg/dL (0.2-1.0)
[2018-04-15] MEDS ORDERED: cefTRIAXone (Rocephin) 1 gm Inj ONE (10:53)
[2018-04-15] MEDS ORDERED: Potassium Chloride 20 mEq ER Tab PO ONE ×2 (11:21→11:38)
[2018-04-15] MEDS ORDERED: Apap-Butalbital-Caffeine 325-50-40mg Tab PO PRN (12:53)
[2018-04-15] MEDS ORDERED: Patient's Own Med (Cyclosporine [Restasis] 1 DROP) LEFTEYE SCH (13:00)
--- NOTE | 2018-04-15 13:10 | CP.PCM.HP ---
<Akira Maurice - Last Filed: 04/15/18 14:53> History of Present Illness - History of Present Illness History of Present Illness: 82 yo F with PMHx of IDDM, HTN, hypothyroidsm, CVA and dementia presents to ED for evaluation of urinary retention and abdominal pain x7 hours. Daughter reports the patient similar complaints 01/2018 which required admission. Daughter states patient woke up at midnight with the urge to urinate and some complaints of abdominal pain and the patient was able to urinate. Like 3 hours later pt woke up screaming in pain and with an urge to urinate but this time p atient was unable to urinate and the patient's abdomen felt hard and distended. Patient has hx of recurrent UTI. Last bowel movement was last night. Otherwise she denies any complaints of dysuria, hematuria, nausea, vomiting, diarrhea, fever, cough, chest pain, or shortness of breath. PMD: Madi Vera PMHx: IDDM type 2, HTN, hypothyroidism, CVA with b/l blindess, left side weakness, , diverticulitis, advanced dementia, recurrent UTI SurgHx: partial thyroidectomy, tonsillectomy FMHx: noncontributory SHx: denies tobacco/Etoh or drugs Allergies: sulfanamide antibiotics, iodine contrast, metformin; aspirin listed but pt takes at home and has taken in hospital before Meds as bellow Present on Admission - Present on Admission Any Indicators Present on Admission: No Review of Systems - Review of Systems All systems: reviewed and no additional remarkable complaints except (HPI) Past Patient History - Infectious Disease Hx of Infectious Diseases: None - Tetanus Immunizations Tetanus Immunization: Unknown - Past Medical History & Family History Past Medical History?: Yes - Past Social History Smoking Status: Never Smoked - CARDIAC Hx Atrial Fibrillation: No Hx Cardia Arrhythmia: No Hx Congestive Heart Failure: Yes Hx Hypercholesterolemia: Yes Hx Hypertension: Yes Hx Mitral Valve Prolapse: No Hx Pacemaker: No Hx Peripheral Edema: Yes (occasional lower extremities) - PULMONARY Hx Asthma: No Hx Bronchitis: No Hx Chronic Obstructive Pulmonary Disease (COPD): No Hx Emphysema: No Hx Pneumonia: Yes Hx Pulmonary Embolism: No Hx Sleep Apnea: No - NEUROLOGICAL Hx Alzheimer's Disease: Yes Hx Dementia: Yes Hx Migraine: Yes Hx Multiple Sclerosis: No Hx Parkinson's Disease: No Hx Seizures: No Hx Transient Ischemic Attacks (TIA): Yes - HEENT Hx HEENT Problems: Yes Hx Blind: No Hx Cataracts: Yes Hx Deafness: No Hx Difficulty Chewing: No Hx Epistaxis: No Hx Glaucoma: Yes Hx Macular Degeneration: No Other/Comment: corneal transplant - RENAL Hx Chronic Kidney Disease: No Hx Kidney Stones: No - ENDOCRINE/METABOLIC Hx Hyperthyroidism: No Hx Hypothyroidism: Yes - HEMATOLOGICAL/ONCOLOGICAL Hx Anemia: Yes Hx Human Immunodeficiency Virus (HIV): No Hx Sickle Cell Disease: No - INTEGUMENTARY Hx Dermatological Problems: No Hx Basil Cell: No Hx Duke: No Hx Cellulitis: No Hx Eczema: No Hx Melanoma: No Hx Psoriasis: No Hx Squamous Cell: No - MUSCULOSKELETAL/RHEUMATOLOGICAL Hx Arthritis: No Hx Fractures: Yes (rt wrist/elbow) Hx Osteoporosis: No Hx Rheumatoid Arthritis: No - GASTROINTESTINAL Hx Crohn's Disease: No Hx Diverticulitis: Yes (Diverticulosis) Hx Gall Bladder Disease: No Hx Gastritis: Yes Hx Pancreatitis: No - GENITOURINARY/GYNECOLOGICAL Hx Sexually Transmitted Disorders: No - PSYCHIATRIC Hx Anxiety: Yes Hx Bipolar Disorder: No Hx Depression: Yes Hx Paranoia: No Hx Post Traumatic Stress Disorder: No Hx Schizophrenia: No - SURGICAL HISTORY Hx Appendectomy: No Hx Carotid Endarterectomy: No Hx Cholecystectomy: No Hx Coronary Artery Bypass Graft: No Hx Coronary Stent: No Hx Tonsillectomy: Yes (partial thyroidectomy) - ANESTHESIA Hx Anesthesia: Yes Hx Anesthesia Reactions: Yes (HALLUCINATION, CONFUSION) Hx Malignant Hyperthermia: No Meds Allergies/Adverse Reactions: Allergies Allergy/AdvReac Type Severity Reaction Status Date / Time aspirin Allergy NAUSEA Verified 02/16/18 04:50 ciprofloxacin Allergy REDNESS Verified 02/16/18 04:50 Sulfa (Sulfonamide Allergy RASH Verified 02/16/18 04:50 Antibiotics) Iodinated Contrast- Oral and AdvReac VOMITING Verified 02/16/18 04:50 IV Dye metformin AdvReac DIARRHEA Verified 02/16/18 04:50 Physical Exam - Constitutional Appears: No Acute Distress - Head Exam Head Exam: NORMAL INSPECTION - Respiratory Exam Respiratory Exam: Clear to Auscultation Bilateral - Cardiovascular Exam Cardiovascular Exam: REGULAR RHYTHM, +S1, +S2 - GI/Abdominal Exam GI & Abdominal Exam: Soft. absent: Distended, Tenderness - Extremities Exam Extremities exam: Negative for: calf tenderness, pedal edema - Neurological Exam Additional comments: bedbound patient, somnolent - Skin Skin Exam: Dry, Warm Results - Vital Signs Recent Vital Signs: Last Vital Signs Temp 97.4 F L 04/15/18 12:26 Pulse 66 04/15/18 12:26 Resp 20 04/15/18 12:26 BP 136/70 04/15/18 12:26 Pulse Ox 95 04/15/18 12:26 - Labs Result Diagrams: 04/15/18 08:45 04/15/18 08:45 Labs: Laboratory Results - last 24 hr 04/15/18 04/15/18 04/15/18 08:45 08:45 08:45 WBC 10.2 RBC 4.11 Hgb 12.2 D Hct 36.4 MCV 88.8 MCH 29.7 MCHC 33.5 RDW 14.1 Plt Count 361 MPV 9.7 Neut % (Auto) 67.2 Lymph % (Auto) 23.7 [place] % (Auto) 7.7 Eos % (Auto) 0.4 Baso % (Auto) 1.0 Neut # (Auto) 6.9 Lymph # (Auto) 2.4 [place] # (Auto) 0.8 Eos # (Auto) 0.0 Baso # (Auto) 0.1 pO2 VBG pH VBG pCO2 VBG HCO3 VBG Total CO2 VBG O2 Sat (Calc) VBG Base Excess VBG Potassium Glucose Lactate FiO2 Sodium 142 Potassium 3.1 L Chloride 102 Carbon Dioxide 32 H Anion Gap 11 BUN 25 H Creatinine 0.6 L Est GFR ( Amer) > 60 Est GFR (Non-Af Amer) > 60 Random Glucose 181 H Calcium 9.4 Total Bilirubin 0.3 AST 27 ALT 22 Alkaline Phosphatase 71 Total Protein 7.7 Albumin 3.6 Globulin 4.0 H Albumin/Globulin Ratio 0.9 L Venous Blood Potassium Urine Color Yellow Urine Clarity Cloudy Urine pH 6.0 Ur Specific [place] 1.013 Urine Protein 100 Urine Glucose (UA) >=500 Urine Ketones Trace Urine Blood Small Urine Nitrate Negative Urine Bilirubin Negative Urine Urobilinogen 0.2-1.0 Ur Leukocyte Esterase Large Urine RBC (Auto) 4 H Urine Microscopic WBC 57 H Ur Squamous Epith Cells < 1 Urine Bacteria Mod H 04/15/18 09:03 WBC RBC Hgb Hct MCV MCH MCHC RDW Plt Count MPV Neut % (Auto) Lymph % (Auto) [place] % (Auto) Eos % (Auto) Baso % (Auto) Neut # (Auto) Lymph # (Auto) [place] # (Auto) Eos # (Auto) Baso # (Auto) pO2 21 L VBG pH 7.39 VBG pCO2 61 H VBG HCO3 30.7 VBG Total CO2 38.8 H VBG O2 Sat (Calc) 39.3 L VBG Base Excess 9.6 H VBG Potassium 2.9 L Glucose 176 H Lactate 1.2 FiO2 21.0 Sodium 139.0 Potassium Chloride 103.0 Carbon Dioxide Anion Gap BUN Creatinine Est GFR ( Amer) Est GFR (Non-Af Amer) Random Glucose Calcium Total Bilirubin AST ALT Alkaline Phosphatase Total Protein Albumin Globulin Albumin/Globulin Ratio Venous Blood Potassium 2.9 L Urine Color Urine Clarity Urine pH Ur Specific [place] Urine Protein Urine Glucose (UA) Urine Ketones Urine Blood Urine Nitrate Urine Bilirubin Urine Urobilinogen Ur Leukocyte Esterase Urine RBC (Auto) Urine Microscopic WBC Ur Squamous Epith Cells Urine Bacteria Assessment & Plan - Assessment and Plan (Free Text) Assessment: 82 yo F with PMHx of IDDM, HTN, hypothyroidsm, CVA and dementia and recurrent UTI admitted due to Urinary tract infection with Urinary retention. Plan: - IV hydration - s/p 1gm rocephin; continue - await urine/blood cultures - f/u morning labs - resume home meds - regular diet - scd, lovenox <Morris Mcginnis L - Last Filed: 04/19/18 22:57> Results - Vital Signs Recent Vital Signs: Last Vital Signs Temp 98.6 F 04/19/18 16:34 Pulse 62 04/19/18 16:34 Resp 18 04/19/18 16:34 BP 114/66 04/19/18 16:34 Pulse Ox 95 04/19/18 16:34 - Labs Result Diagrams: 04/19/18 05:30 04/19/18 05:30 Labs: Laboratory Results - last 24 hr 04/19/18 04/19/18 05:30 05:30 WBC 5.9 RBC 3.54 L Hgb 10.4 L Hct 31.7 L MCV 89.7 MCH 29.5 MCHC 32.9 L RDW 14.2 Plt Count 318 Sodium 136 Potassium 3.7 Chloride 102 Carbon Dioxide 27 Anion Gap 11 BUN 15 Creatinine 0.6 L Est GFR ( Amer) > 60 Est GFR (Non-Af Amer) > 60 Random Glucose 319 H Calcium 8.7 Total Bilirubin 0.2 AST 26 ALT 18 Alkaline Phosphatase 65 Total Protein 6.5 Albumin 2.9 L Globulin 3.6 Albumin/Globulin Ratio 0.8 L TSH 3rd Generation 2.98 Assessment & Plan (1) Urinary tract infection Status: Acute (2) History of ESBL E. 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 difficile colitis Status: Suspected - Assessment and Plan (Free Text) Plan: I was present during evaluation and discussed with Dr Maurice re plans of care and mgt. Morris Mcginnis M.D.
[2018-04-15] MEDS: PrednisoLONE 1% OPTH SUSP OD SCH ×2 (14:16→17:47)
[2018-04-15] MEDS: Lubricant Eye Drops UD OD SCH ×2 (14:17→17:57)
[2018-04-15] MEDS ORDERED: Insulin Regular 100 units/ml SC SCH (16:30)
[2018-04-15] MEDS: Brimonidine 0.2% 50 DROP/5 ML BOTTLE OS SCH (17:46)
[2018-04-15] MEDS: Insulin Regular 100 units/ml SC SCH ×2 (17:46→23:16)
[2018-04-15] MEDS ORDERED: Ciprofloxacin 400mg/200ml D5W 400 MG/200 ML BAG IVPB SCH (21:00)
[2018-04-15] MEDS ORDERED: Patient's Own Med (Brimonidine Tartrate/Timolol [Combigan 0.2%-0.5% Eye Drops] 1 DROP) LEFTEYE SCH (21:00)
[2018-04-15] MEDS: PETROLATUM WHITE LEFTEYE SCH (21:22)
[2018-04-15] MEDS: [UNRECOGNIZED DRUG - OTHER] LEFTEYE SCH (21:22)
[2018-04-15] MEDS: MINERAL OIL LEFTEYE SCH (21:22)
[2018-04-15] MEDS ORDERED: CARBOXYMETHYLCELLULOSE SODIUM RIGHTEYE SCH (22:00)
[2018-04-16] MEDS: PrednisoLONE 1% OPTH SUSP OD SCH ×5 (00:03→22:09)
[2018-04-16] MEDS: Latanoprost 0.005% Opht SOUTION OD SCH ×2 (00:11→22:07)
[2018-04-16] MEDS: Brimonidine 0.2% 50 DROP/5 ML BOTTLE OS SCH ×2 (05:24→17:40)
[2018-04-16 06:28] LABS: BASO # 0.1 K/uL (0.0-0.2); BASO % 0.7 % (0.0-2.0); EOS # 0.1 K/uL (0.0-0.7); EOS % 1.1 % (0.0-4.0); HEMOGLOBIN 10.7 g/dL (12.0-16.0); LYMPH # 2.3 K/uL (1.0-4.3); LYMPH % 27.9 % (20.0-40.0); MEAN CELL VOLUME 89.4 fl (81.0-99.0); MEAN CORPUSCULAR HEMOGLOBIN 29.8 pg (27.0-31.0); MEAN CORPUSCULAR HGB CONC 33.3 g/dL (33.0-37.0); MEAN PLATELET VOLUME 10.1 fl (7.2-11.7); MONO # 0.6 K/uL (0.0-0.8); NEUT % 62.3 % (50.0-75.0); NRBC % 0.1 % (0.0-0.0); RBC 3.59 Mil/uL (3.80-5.20); RED CELL DISTRIBUTION WIDTH 14.2 % (11.5-14.5); WHITE BLOOD COUNT 8.1 K/uL (4.8-10.8)
[2018-04-16 06:47] LABS: ALB/GLOB RATIO 0.8 (1.0-2.1); ALT/SGPT 17 U/L (9-52); AST/SGOT 18 U/L (14-36); CALCIUM 8.6 mg/dL (8.4-10.2); GFR NON-AFRICAN AMERICAN > 60
[2018-04-16 06:57] LABS: BLOOD UREA NITROGEN 23 mg/dl (7-17)
[2018-04-16] MEDS: GlipiZIDE 2.5 mg SR Tab PO SCH (08:00)
[2018-04-16] MEDS: Levothyroxine 75 MCG TAB PO SCH (08:24)
[2018-04-16] MEDS: Insulin Regular 100 units/ml SC SCH ×4 (08:25→22:08)
[2018-04-16] MEDS ORDERED: Potassium Chloride 20 mEq ER Tab PO ONE (09:10)
[2018-04-16] MEDS: Enoxaparin 40 mg Syringe SC SCH (09:50)
[2018-04-16] MEDS: Lubricant Eye Drops UD OD SCH ×3 (09:52→17:44)
[2018-04-16] MEDS: Cholecalciferol 1,000 INTLU TAB PO SCH (09:58)
--- NOTE | 2018-04-16 11:03 | CP.PCM.PN ---
<Akira Maurice - Last Filed: 04/16/18 12:23> Subjective - Date & Time of Evaluation Date of Evaluation: 04/16/18 Time of Evaluation: 11:03 - Subjective Subjective: Patient seen and examined this morning, family at bedside, comfortable lying in bed, no events reported No pain reported. Afevrile Objective - Vital Signs/Intake and Output Vital Signs (last 24 hours): Temp Pulse Resp BP Pulse Ox 97.4 F L 70 20 133/72 96 04/16/18 08:06 04/16/18 09:57 04/16/18 08:06 04/16/18 09:57 04/16/18 08:06 - Medications Medications: Current Medications Acetaminophen/Butalbital/Caffeine (Fioricet) 1 tab PO Q8 PRN PRN Reason: Migraine headache Artificial Tears (Refresh Opth Soln) 0.3 ml OD TID [facility] Last Admin: 04/16/18 09:52 Dose: 1 unit Atorvastatin Calcium (Lipitor) 40 mg PO HS [facility] Last Admin: 04/15/18 21:22 Dose: 40 mg Brimonidine Tartrate (Alphagan 0.2% Opht) 1 drop OS Q12H [facility] Last Admin: 04/16/18 05:24 Dose: 1 drop Cholecalciferol (Vitamin D) 1,000 intlu PO DAILY [facility] Last Admin: 04/16/18 09:58 Dose: 1,000 intlu Clopidogrel Bisulfate (Plavix) 75 mg PO DAILY [facility] Last Admin: 04/16/18 09:57 Dose: 75 mg Donepezil HCl (Aricept) 10 mg PO HS [facility] Last Admin: 04/15/18 21:41 Dose: 10 mg Enoxaparin Sodium (Lovenox) 40 mg SC DAILY [facility]; Protocol Last Admin: 04/16/18 09:50 Dose: 40 mg Famotidine (Pepcid) 20 mg PO BID [facility] Last Admin: 04/16/18 09:55 Dose: 20 mg Glipizide (Glucotrol Xl) 2.5 mg PO BRK [facility] Last Admin: 04/16/18 08:00 Dose: 2.5 mg Home Med (Carboxymethylcellulose Sodium [Lubricant Eye Drops]) 1 drop RIGHTEYE HS [facility] Home Med (Cyclosporine [Restasis]) 1 drop LEFTEYE Q12H [facility] Home Med (Mineral Oil/Petrolatum,White [Systane Nighttime Eye Ointment]) 1 unit LEFTEYE [facility] Last Admin: 04/15/18 21:22 Dose: 1 unit Ceftriaxone Sodium 1 gm/ (Sodium Chloride) 100 mls @ 100 mls/hr IVPB DAILY [facility]; Protocol Last Admin: 04/16/18 09:46 Dose: 100 mls/hr Insulin Human Regular (Humulin R) 0 units SC ACCU-CHECK [facility]; Protocol Last Admin: 04/16/18 08:25 Dose: 3 unit Latanoprost (Xalatan Opht) 1 drop OD [facility] Last Admin: 04/16/18 00:11 Dose: 1 drop Levothyroxine Sodium (Synthroid) 75 mcg PO DAILY@0630 [facility] Last Admin: 04/16/18 08:24 Dose: 75 mcg Meclizine HCl (Antivert) 25 mg PO TID PRN PRN Reason: Dizziness Memantine (Namenda) 10 mg PO Q12 [facility] Last Admin: 04/16/18 09:55 Dose: 10 mg Metoprolol Tartrate (Lopressor) 12.5 mg PO DAILY PRN PRN Reason: SBP >139 Last Admin: 04/16/18 09:57 Dose: 12.5 mg Prednisolone Acetate (Pred Forte 1% Opht Susp) 1 drop OD QID [facility] Last Admin: 04/16/18 09:49 Dose: 1 drop Ramipril (Altace) 5 mg PO DAILY [facility] Last Admin: 04/16/18 09:56 Dose: 5 mg Risperidone (Risperdal Tab) 0.25 mg PO [facility] Last Admin: 04/16/18 09:56 Dose: 0.25 mg Risperidone (Risperdal Tab) 0.5 mg PO [facility] Last Admin: 04/15/18 21:24 Dose: 0.5 mg Sertraline HCl (Zoloft) 50 mg PO [facility] Last Admin: 04/15/18 21:23 Dose: 50 mg Sitagliptin Phosphate (Januvia) 100 mg PO DAILY [facility] Last Admin: 04/16/18 09:56 Dose: 100 mg Timolol Maleate (Timoptic 0.5% Ophth Soln) 1 drop OS Q12H [facility] Last Admin: 04/16/18 05:29 Dose: 1 drop - Labs Labs: 04/16/18 05:55 04/16/18 05:55 - Constitutional Appears: No Acute Distress - Head Exam Head Exam: NORMAL INSPECTION - Respiratory Exam Respiratory Exam: Clear to Ausculation Bilateral - Cardiovascular Exam Cardiovascular Exam: REGULAR RHYTHM, +S1, +S2 - Extremities Exam Extremities Exam: absent: Calf Tenderness - Neurological Exam Neurological Exam: Awake - Skin Skin Exam: Dry, Warm Assessment and Plan - Assessment and Plan (Free Text) Assessment: 82 yo F with PMHx of IDDM, HTN, hypothyroidsm, CVA and dementia and recurrent UTI admitted due to Urinary tract infection with Urinary retention. Plan: - afebrile, WBC wnl - IV hydration - continue on IV abx - await urine/blood cultures - f/u morning labs - resume home meds - scd, lovenox - rest of plan as ordered Case seen and exasmined with Dr Mcginnis <Morris Mcginnis - Last Filed: 04/19/18 22:56> Objective - Vital Signs/Intake and Output Vital Signs (last 24 hours): Temp Pulse Resp BP Pulse Ox 98.6 F 62 18 114/66 95 04/19/18 16:34 04/19/18 16:34 04/19/18 16:34 04/19/18 16:34 04/19/18 16:34 - Medications Medications: Current Medications Acetaminophen/Butalbital/Caffeine (Fioricet) 1 tab PO Q8 PRN PRN Reason: Migraine headache Artificial Tears (Artificial Tears) 0.3 drop OD TID [facility] Last Admin: 04/19/18 17:48 Dose: 0.3 drop Atorvastatin Calcium (Lipitor) 40 mg PO [facility] Last Admin: 04/19/18 22:03 Dose: 40 mg Brimonidine Tartrate (Alphagan 0.2% Opht) 1 drop OS Q12H [facility] Last Admin: 04/19/18 17:49 Dose: 1 drop Cholecalciferol (Vitamin D) 1,000 intlu PO DAILY [facility] Last Admin: 04/19/18 09:42 Dose: 1,000 intlu Clopidogrel Bisulfate (Plavix) 75 mg PO DAILY [facility] Last Admin: 04/19/18 09:42 Dose: 75 mg Donepezil HCl (Aricept) 10 mg PO HS [facility] Last Admin: 04/19/18 22:02 Dose: 10 mg Famotidine (Pepcid) 20 mg PO BID [facility] Last Admin: 04/19/18 17:34 Dose: 20 mg Glipizide (Glucotrol Xl) 2.5 mg PO BRK [facility] Last Admin: 04/19/18 09:38 Dose: 2.5 mg Home Med (Carboxymethylcellulose Sodium [Lubricant Eye Drops]) 1 drop RIGHTEYE HS [facility] Home Med (Cyclosporine [Restasis]) 1 drop LEFTEYE Q12H [facility] Home Med (Mineral Oil/Petrolatum,White [Systane Nighttime Eye Ointment]) 1 unit LEFTEYE HS [facility] Last Admin: 04/19/18 22:05 Dose: 1 unit Meropenem 500 mg/ Sodium (Chloride) 100 mls @ 100 mls/hr IVPB Q8 [facility]; Protocol Last Admin: 04/19/18 17:42 Dose: 100 mls/hr Insulin Human Regular (Humulin R) 0 units SC ACCU-CHECK [facility]; Protocol Last Admin: 04/19/18 17:31 Dose: 4 unit Latanoprost (Xalatan Opht) 1 drop OD [facility] Last Admin: 04/19/18 22:03 Dose: 1 drop Levothyroxine Sodium (Synthroid) 75 mcg PO DAILY@0630 [facility] Last Admin: 04/19/18 06:46 Dose: 75 mcg Meclizine HCl (Antivert) 25 mg PO TID PRN PRN Reason: Dizziness Memantine (Namenda) 10 mg PO Q12 [facility] Last Admin: 04/19/18 22:08 Dose: 10 mg Metoprolol Tartrate (Lopressor) 12.5 mg PO DAILY PRN PRN Reason: SBP >139 Last Admin: 04/19/18 09:38 Dose: 12.5 mg Potassium Chloride (K-Dur 20 Meq Er Tab) 40 meq PO BID [facility] Last Admin: 04/19/18 17:33 Dose: 40 meq Prednisolone Acetate (Pred Forte 1% Opht Susp) 1 drop OD QID [facility] Last Admin: 04/19/18 22:08 Dose: 1 drop Ramipril (Altace) 5 mg PO DAILY [facility] Last Admin: 04/19/18 09:38 Dose: 5 mg Risperidone (Risperdal Tab) 0.25 mg PO QAM [facility] Last Admin: 04/19/18 09:38 Dose: 0.25 mg Risperidone (Risperdal Tab) 0.5 mg PO HS [facility] Last Admin: 04/19/18 22:02 Dose: 0.5 mg Sertraline HCl (Zoloft) 50 mg PO HS [facility] Last Admin: 04/19/18 22:02 Dose: 50 mg Sitagliptin Phosphate (Januvia) 100 mg PO DAILY [facility] Last Admin: 04/19/18 09:39 Dose: 100 mg Timolol Maleate (Timoptic 0.5% Ophth Soln) 1 drop OS Q12H [facility] Last Admin: 04/19/18 17:35 Dose: 1 drop Vancomycin HCl (Vancocin (Oral/Rectal Use)) 125 mg PO Q6 [facility]; Protocol Last Admin: 04/19/18 22:01 Dose: 125 mg - Labs Labs: 04/19/18 05:30 04/19/18 05:30 Assessment and Plan (1) Urinary tract infection Status: Acute (2) History of ESBL E. 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 difficile colitis Status: Suspected - Assessment and Plan (Free Text) Plan: I was present during evaluation and discussed with Dr Kaylene smiley plans of care and tx Morris Mcginnis M.D.
[2018-04-16] MEDS: [UNRECOGNIZED DRUG - OTHER] LEFTEYE SCH (21:55)
[2018-04-16] MEDS: MINERAL OIL LEFTEYE SCH (21:55)
[2018-04-16] MEDS: PETROLATUM WHITE LEFTEYE SCH (21:55)
[2018-04-17] MEDS: Brimonidine 0.2% 50 DROP/5 ML BOTTLE OS SCH ×2 (05:01→17:18)
[2018-04-17] MEDS: Insulin Regular 100 units/ml SC SCH ×4 (06:04→22:06)
[2018-04-17] MEDS: Levothyroxine 75 MCG TAB PO SCH (06:07)
[2018-04-17 06:55] LABS: BLOOD UREA NITROGEN 17 mg/dl (7-17); CALCIUM 8.8 mg/dL (8.4-10.2); GFR NON-AFRICAN AMERICAN > 60
[2018-04-17] MEDS: Lubricant Eye Drops UD OD SCH ×3 (08:47→17:22)
[2018-04-17] MEDS: Enoxaparin 40 mg Syringe SC SCH (08:48)
[2018-04-17] MEDS: Cholecalciferol 1,000 INTLU TAB PO SCH (08:50)
[2018-04-17] MEDS: GlipiZIDE 2.5 mg SR Tab PO SCH (08:50)
[2018-04-17] MEDS: PrednisoLONE 1% OPTH SUSP OD SCH ×4 (08:52→22:07)
[2018-04-17] MEDS: Potassium Chloride 20 mEq ER Tab PO SCH ×2 (09:49→17:20)
--- NOTE | 2018-04-17 10:24 | CP.PCM.PN ---
Subjective - Date & Time of Evaluation Date of Evaluation: 04/17/18 Time of Evaluation: 11:49 - Subjective Subjective: Patient seen and examined this morning, doing, no acute overnight events, no complaints VSS, afebrile Objective - Vital Signs/Intake and Output Vital Signs (last 24 hours): Temp Pulse Resp BP Pulse Ox 98.6 F 68 19 134/73 95 04/17/18 08:44 04/17/18 08:44 04/17/18 08:44 04/17/18 08:47 04/17/18 08:44 - Medications Medications: Current Medications Acetaminophen/Butalbital/Caffeine (Fioricet) 1 tab PO Q8 PRN PRN Reason: Migraine headache Artificial Tears (Refresh Opth Soln) 0.3 ml OD TID [facility] Last Admin: 04/17/18 08:47 Dose: 1 unit Atorvastatin Calcium (Lipitor) 40 mg PO HS [facility] Last Admin: 04/16/18 21:55 Dose: 40 mg Brimonidine Tartrate (Alphagan 0.2% Opht) 1 drop OS Q12H [facility] Last Admin: 04/17/18 05:01 Dose: 1 drop Cholecalciferol (Vitamin D) 1,000 intlu PO DAILY [facility] Last Admin: 04/17/18 08:50 Dose: 1,000 intlu Clopidogrel Bisulfate (Plavix) 75 mg PO DAILY [facility] Last Admin: 04/17/18 08:50 Dose: 75 mg Donepezil HCl (Aricept) 10 mg PO HS [facility] Last Admin: 04/16/18 21:53 Dose: 10 mg Enoxaparin Sodium (Lovenox) 40 mg SC DAILY [facility]; Protocol Last Admin: 04/17/18 08:48 Dose: 40 mg Famotidine (Pepcid) 20 mg PO BID [facility] Last Admin: 04/17/18 08:50 Dose: 20 mg Glipizide (Glucotrol Xl) 2.5 mg PO BRK [facility] Last Admin: 04/17/18 08:50 Dose: 2.5 mg Home Med (Carboxymethylcellulose Sodium [Lubricant Eye Drops]) 1 drop RIGHTEYE HS [facility] Home Med (Cyclosporine [Restasis]) 1 drop LEFTEYE Q12H [facility] Home Med (Mineral Oil/Petrolatum,White [Systane Nighttime Eye Ointment]) 1 unit LEFTEYE [facility] Last Admin: 04/16/18 21:55 Dose: 1 unit Ceftriaxone Sodium 1 gm/ (Sodium Chloride) 100 mls @ 100 mls/hr IVPB DAILY [facility]; Protocol Last Admin: 04/17/18 08:55 Dose: 100 mls/hr Insulin Human Regular (Humulin R) 0 units SC ACCU-CHECK [facility]; Protocol Last Admin: 04/17/18 06:04 Dose: 2 unit Latanoprost (Xalatan Opht) 1 drop OD [facility] Last Admin: 04/16/18 22:07 Dose: 1 drop Levothyroxine Sodium (Synthroid) 75 mcg PO DAILY@0630 [facility] Last Admin: 04/17/18 06:07 Dose: 75 mcg Meclizine HCl (Antivert) 25 mg PO TID PRN PRN Reason: Dizziness Memantine (Namenda) 10 mg PO Q12 [facility] Last Admin: 04/17/18 08:48 Dose: 10 mg Metoprolol Tartrate (Lopressor) 12.5 mg PO DAILY PRN PRN Reason: SBP >139 Last Admin: 04/16/18 09:57 Dose: 12.5 mg Potassium Chloride (K-Dur 20 Meq Er Tab) 40 meq PO BID [facility] Prednisolone Acetate (Pred Forte 1% Opht Susp) 1 drop OD QID [facility] Last Admin: 04/17/18 08:52 Dose: 1 drop Ramipril (Altace) 5 mg PO DAILY [facility] Last Admin: 04/17/18 08:47 Dose: 5 mg Risperidone (Risperdal Tab) 0.25 mg PO QAM [facility] Last Admin: 04/17/18 08:49 Dose: 0.25 mg Risperidone (Risperdal Tab) 0.5 mg PO [facility] Last Admin: 04/16/18 21:56 Dose: 0.5 mg Sertraline HCl (Zoloft) 50 mg PO [facility] Last Admin: 04/16/18 21:57 Dose: 50 mg Sitagliptin Phosphate (Januvia) 100 mg PO DAILY [facility] Last Admin: 04/17/18 08:49 Dose: 100 mg Timolol Maleate (Timoptic 0.5% Ophth Soln) 1 drop OS Q12H [facility] Last Admin: 04/17/18 06:00 Dose: 1 drop - Labs Labs: 04/16/18 05:55 10/26/18 05:55 - Constitutional Appears: No Acute Distress - Head Exam Head Exam: NORMAL INSPECTION - Respiratory Exam Respiratory Exam: Clear to Ausculation Bilateral - Cardiovascular Exam Cardiovascular Exam: REGULAR RHYTHM, +S1, +S2 - GI/Abdominal Exam GI & Abdominal Exam: Soft. absent: Distended, Tenderness - Extremities Exam Extremities Exam: absent: Pedal Edema - Neurological Exam Neurological Exam: Alert, Awake - Skin Skin Exam: Dry, Warm Assessment and Plan - Assessment and Plan (Free Text) Assessment: 82 yo F with PMHx of IDDM, HTN, hypothyroidsm, CVA and dementia and recurrent UTI admitted due to Urinary tract infection with Urinary retention. Plan: - afebrile, WBC wnl - IV hydration - continue on IV abx - blood cultures growing Gram neg edgardo - ID consulted, input appreciated - f/u morning labs - continue home meds - scd, lovenox - rest of plan as ordered Case seen and exasmined with Dr Bernaluez
--- NOTE | 2018-04-17 12:51 | CP.PCM.CON ---
History of Present Illness - History of Present Illness History of Present Illness: 82 yo F presents to ED for evaluation of urinary retention and abdominal pain x7 hours. Patient has hx of recurrent UTI. Referred for ID eval of ESBL UTI PMHx: IDDM type 2, HTN, hypothyroidism, CVA with b/l blindess, left side w eakness, , diverticulitis, advanced dementia, recurrent UTI SurgHx: partial thyroidectomy, tonsillectomy FMHx: noncontributory SHx: denies tobacco/Etoh or drugs Allergies: sulfanamide antibiotics, iodine contrast, metformin; aspirin listed but pt takes at home and has taken in hospital before Meds as bellow Review of Systems - Review of Systems Systems not reviewed;Unavailable: Altered Mental Status All systems: reviewed and no additional remarkable complaints except - Constitutional Constitutional: As Per HPI - EENT Eyes: absent: As Per HPI, Blind Spots, Blurred Vision, Change in Vision, Decreased Night Vision, Diplopia, Discharge, Dry Eye, Exophthalmos, Floaters, Irritation, Itchy Eyes, Loss of Peripheral Vision, Pain, Photophobia, Requires Corrective Lenses, Sees Flashes, Spots in Vision, Tunnel Vision, Other Visual Disturbances, Loss of Vision, Other Ears: absent: As Per HPI, Decreased Hearing, Ear Discharge, Ear Pain, Tinnitus, Abnormal Hearing, Disequilibrium, Dizziness, Other Nose/Mouth/Throat: absent: As Per HPI, Epistaxis, Nasal Congestion, Nasal Discharge, Nasal Obstruction, Nasal Trauma, Nose Pain, Post Nasal Drip, Sinus Pain, Sinus Pressure, Bleeding Gums, Change in Voice, Dental Pain, Dry Mouth, Dysphagia, Halitosis, Hoarsness, Lip Swelling, Mouth Lesions, Mouth Pain, Odynophagia, Sore Throat, Throat Swelling, Tongue Swelling, Facial Pain, Neck Pain, Neck Mass, Other - Breasts Breasts: absent: As Per HPI, Change in Shape, Mass, Pain, Nipple Discharge, Nipple Inversion, Skin Changes, Swelling, Other - Cardiovascular Cardiovascular: absent: As Per HPI, Acrocyanosis, Chest Pain, Chest Pain at Rest, Chest Pain with Activity, Claudication, Diaphoresis, Dyspnea, Dyspnea on Exertion, Edema, Irregular Heart Rhythm, Pain Radiating to Arm/Neck/Jaw, Leg Edema, Leg Ulcers, Lightheadedness, Orthopnea, Palpitations, Paroxysmal Nocturnal Dyspnea, Pedal Edema, Radiating Pain, Rapid Heart Rate, Slow Heart Rate, Syncope, Other - Respiratory Respiratory: absent: As Per HPI, Cough, Dyspnea, Hemoptysis, Dyspnea on Exertion, Wheezing, Snoring, Stridor, Pain on Inspiration, Chest Congestion, Excessive Mucous Production, Change in Mucous Color, Pain with Coughing, Other - Gastrointestinal Gastrointestinal: absent: As Per HPI, Abdominal Pain, Belching, Bloating, Change in Bowel Habits, Change in Stool Character, Coffee Ground Emesis, Constipation, Cramping, Diarrhea, Dyspepsia, Dysphagia, Early Satiety, Excessive Flatus, Fecal Incontinence, Heartburn, Hematemesis, Hematochezia, Loose Stools, Melena, Nausea, Odynophagia, Temesmus, Vomiting, Other - Genitourinary Genitourinary: As Per HPI - Reproductive: Female Reproductive:Female: absent: As Per HPI, Amenorrhea, Amenorrhea/ Control, Currently Menstual, Cycle <21 Days, Cycle >35 Days, Cycle Variable, Menses 1-7 Days, Menses >/= 8 Days, Menses Variable, Cycle > 4 Weeks Between, No Menses for 6 Months, Heavy Menses, Light Menses, Normal Menses, Spotting Between Cycles, S/P Hysterectomy, Menopausal, Post Menopausal, Premenarche, Abnormal Vaginal Bleeding, Dysmenorrhea, Dyspareunia, Genital Lesions, Genital Pruritis, Pelvic Pain, Prolapse Symptoms, Sexual Dysfunction, Vaginal Discharge, Vaginal Dryness, Vaginal Odor, Vaginal Pruritis, Other - Menstruation Menstruation: absent: As Per HPI, Amenorrhea, Amenorrhea/ Control, Currently Menstual, Cycle <21 Days, Cycle >35 Days, Cycle Variable, Menses 1-7 Days, Menses >/= 8 Days, Menses Variable, Cycle > 4 Weeks Between, No Menses for 6 Months, Heavy Menses, Light Menses, Normal Menses, Spotting Between Cycles, S/P Hysterectomy, Menopausal, Post Menopausal, Premenarche, Abnormal Vaginal Bleeding, Dysmenorrhea, Other - Musculoskeletal Musculoskeletal: absent: As Per HPI, Abnormal Gait, Arthralgias, Atrophy, Back Pain, Deformity, Joint Swelling, Limited Range of Motion, Loss of Height, Muscle Cramps, Muscle Weakness, Myalgias, Neck Pain, Numbness, Radiating Pain into Limb, Stiffness, Tingling, Other - Integumentary Integumentary: absent: As Per HPI, Acne, Alopecia, Bleeding Lesions, Change in Hair, Change in Nails, Change in Pigmentation, Changing Lesions, Dry Skin, Vikash thema, Furuncle, Hirsutism, Lesions, New Lesions, Non-Healing Lesions, Photosensitivity, Pruritus, Rash, Skin Pain, Skin Ulcer, Sores, Striae, Swelling, Unusual Bruising, Wounds, Jaundice, Other - Neurological Neurological: As Per HPI - Psychiatric Psychiatric: As Per HPI - Endocrine Endocrine: absent: As Per HPI, Change in Body Appearance, Change in Libido, Cold Intolorance, Deepening of Voice, Excessive Sweating, Fatigue, Flushing, Heat Intolorance, Increase in Ring/Shoe/Hat Size, Palpitations, Polydipsia, Polyphagia, Polyuria, Other - Hematologic/Lymphatic Hematologic: absent: As Per HPI, Easy Bleeding, Easy Bruising, Lymphadenopathy, Other Past Patient History - Infectious Disease Hx of Infectious Diseases: None - Tetanus Immunizations Tetanus Immunization: Unknown - Past Medical History & Family History Past Medical History?: Yes - Past Social History Smoking Status: Never Smoked - CARDIAC Hx Atrial Fibrillation: No Hx Cardia Arrhythmia: No Hx Congestive Heart Failure: Yes Hx Hypercholesterolemia: Yes Hx Hypertension: Yes Hx Mitral Valve Prolapse: No Hx Pacemaker: No Hx Peripheral Edema: Yes (occasional lower extremities) - PULMONARY Hx Asthma: No Hx Bronchitis: No Hx Chronic Obstructive Pulmonary Disease (COPD): No Hx Emphysema: No Hx Pneumonia: Yes Hx Pulmonary Embolism: No Hx Sleep Apnea: No - NEUROLOGICAL Hx Alzheimer's Disease: Yes Hx Dementia: Yes Hx Migraine: Yes Hx Multiple Sclerosis: No Hx Parkinson's Disease: No Hx Seizures: No Hx Transient Ischemic Attacks (TIA): Yes - HEENT Hx HEENT Problems: Yes Hx Blind: No Hx Cataracts: Yes Hx Deafness: No Hx Difficulty Chewing: No Hx Epistaxis: No Hx Glaucoma: Yes Hx Macular Degeneration: No Other/Comment: corneal transplant - RENAL Hx Chronic Kidney Disease: No Hx Kidney Stones: No - ENDOCRINE/METABOLIC Hx Hyperthyroidism: No Hx Hypothyroidism: Yes - HEMATOLOGICAL/ONCOLOGICAL Hx Anemia: Yes Hx Human Immunodeficiency Virus (HIV): No Hx Sickle Cell Disease: No - INTEGUMENTARY Hx Dermatological Problems: No Hx Basil Cell: No Hx Duke: No Hx Cellulitis: No Hx Eczema: No Hx Melanoma: No Hx Psoriasis: No Hx Squamous Cell: No - MUSCULOSKELETAL/RHEUMATOLOGICAL Hx Arthritis: No Hx Fractures: Yes (rt wrist/elbow) Hx Osteoporosis: No Hx Rheumatoid Arthritis: No - GASTROINTESTINAL Hx Crohn's Disease: No Hx Diverticulitis: Yes (Diverticulosis) Hx Gall Bladder Disease: No Hx Gastritis: Yes Hx Pancreatitis: No - GENITOURINARY/GYNECOLOGICAL Hx Sexually Transmitted Disorders: No - PSYCHIATRIC Hx Anxiety: Yes Hx Bipolar Disorder: No Hx Depression: Yes Hx Paranoia: No Hx Post Traumatic Stress Disorder: No Hx Schizophrenia: No - SURGICAL HISTORY Hx Appendectomy: No Hx Carotid Endarterectomy: No Hx Cholecystectomy: No Hx Coronary Artery Bypass Graft: No Hx Coronary Stent: No Hx Tonsillectomy: Yes (partial thyroidectomy) - ANESTHESIA Hx Anesthesia: Yes Hx Anesthesia Reactions: Yes (HALLUCINATION, CONFUSION) Hx Malignant Hyperthermia: No Meds Allergies/Adverse Reactions: Allergies Allergy/AdvReac Type Severity Reaction Status Date / Time aspirin Allergy NAUSEA Verified 02/16/18 04:50 ciprofloxacin Allergy REDNESS Verified 02/16/18 04:50 Sulfa (Sulfonamide Allergy RASH Verified 02/16/18 04:50 Antibiotics) Iodinated Contrast- Oral and AdvReac VOMITING Verified 02/16/18 04:50 IV Dye metformin AdvReac DIARRHEA Verified 02/16/18 04:50 - Medications Medications: Current Medications Acetaminophen/Butalbital/Caffeine (Fioricet) 1 tab PO Q8 PRN PRN Reason: Migraine headache Artificial Tears (Refresh Opth Soln) 0.3 ml OD TID [facility] Last Admin: 04/17/18 08:47 Dose: 1 unit Atorvastatin Calcium (Lipitor) 40 mg PO HS [facility] Last Admin: 04/16/18 21:55 Dose: 40 mg Brimonidine Tartrate (Alphagan 0.2% Opht) 1 drop OS Q12H [facility] Last Admin: 04/17/18 05:01 Dose: 1 drop Cholecalciferol (Vitamin D) 1,000 intlu PO DAILY [facility] Last Admin: 04/17/18 08:50 Dose: 1,000 intlu Clopidogrel Bisulfate (Plavix) 75 mg PO DAILY [facility] Last Admin: 04/17/18 08:50 Dose: 75 mg Donepezil HCl (Aricept) 10 mg PO HS [facility] Last Admin: 04/16/18 21:53 Dose: 10 mg Enoxaparin Sodium (Lovenox) 40 mg SC DAILY [facility]; Protocol Last Admin: 04/17/18 08:48 Dose: 40 mg Famotidine (Pepcid) 20 mg PO BID [facility] Last Admin: 04/17/18 08:50 Dose: 20 mg Glipizide (Glucotrol Xl) 2.5 mg PO BRK [facility] Last Admin: 04/17/18 08:50 Dose: 2.5 mg Home Med (Carboxymethylcellulose Sodium [Lubricant Eye Drops]) 1 drop RIGHTEYE HS [facility] Home Med (Cyclosporine [Restasis]) 1 drop LEFTEYE Q12H [facility] Home Med (Mineral Oil/Petrolatum,White [Systane Nighttime Eye Ointment]) 1 unit LEFTEYE HS [facility] Last Admin: 04/16/18 21:55 Dose: 1 unit Ceftriaxone Sodium 1 gm/ (Sodium Chloride) 100 mls @ 100 mls/hr IVPB DAILY [facility]; Protocol Last Admin: 04/17/18 08:55 Dose: 100 mls/hr Insulin Human Regular (Humulin R) 0 units SC ACCU-CHECK [facility]; Protocol Last Admin: 04/17/18 06:04 Dose: 2 unit Latanoprost (Xalatan Opht) 1 drop OD [facility] Last Admin: 04/16/18 22:07 Dose: 1 drop Levothyroxine Sodium (Synthroid) 75 mcg PO DAILY@0630 [facility] Last Admin: 04/17/18 06:07 Dose: 75 mcg Meclizine HCl (Antivert) 25 mg PO TID PRN PRN Reason: Dizziness Memantine (Namenda) 10 mg PO Q12 [facility] Last Admin: 04/17/18 08:48 Dose: 10 mg Metoprolol Tartrate (Lopressor) 12.5 mg PO DAILY PRN PRN Reason: SBP >139 Last Admin: 04/16/18 09:57 Dose: 12.5 mg Potassium Chloride (K-Dur 20 Meq Er Tab) 40 meq PO BID [facility] Last Admin: 04/17/18 09:49 Dose: 40 meq Prednisolone Acetate (Pred Forte 1% Opht Susp) 1 drop OD QID [facility] Last Admin: 04/17/18 08:52 Dose: 1 drop Ramipril (Altace) 5 mg PO DAILY [facility] Last Admin: 04/17/18 08:47 Dose: 5 mg Risperidone (Risperdal Tab) 0.25 mg PO QAM [facility] Last Admin: 04/17/18 08:49 Dose: 0.25 mg Risperidone (Risperdal Tab) 0.5 mg PO HS [facility] Last Admin: 04/16/18 21:56 Dose: 0.5 mg Sertraline HCl (Zoloft) 50 mg PO HS [facility] Last Admin: 04/16/18 21:57 Dose: 50 mg Sitagliptin Phosphate (Januvia) 100 mg PO DAILY [facility] Last Admin: 04/17/18 08:49 Dose: 100 mg Timolol Maleate (Timoptic 0.5% Ophth Soln) 1 drop OS Q12H [facility] Last Admin: 04/17/18 06:00 Dose: 1 drop Physical Exam - Constitutional Appears: Confused, Cachectic, Chronically Ill - Head Exam Head Exam: ATRAUMATIC, NORMAL INSPECTION, NORMOCEPHALIC - Eye Exam Eye Exam: EOMI, PERRL. absent: Scleral icterus - ENT Exam ENT Exam: Mucous Membranes Dry, Normal External Ear Exam - Neck Exam Neck exam: Negative for: Lymphadenopathy - Respiratory Exam Respiratory Exam: Decreased Breath Sounds - Cardiovascular Exam Cardiovascular Exam: REGULAR RHYTHM - GI/Abdominal Exam GI & Abdominal Exam: Diminished Bowel Sounds, Soft. absent: Tenderness - Rectal Exam Rectal Exam: Deferred - Exam Exam: NORMAL INSPECTION - Extremities Exam Extremities exam: Negative for: pedal edema - Back Exam Back exam: absent: CVA tenderness (L), CVA tenderness (R) - Neurological Exam Neurological exam: Alert, Altered, CN II-XII Intact - Psychiatric Exam Psychiatric exam: Depressed - Skin Skin Exam: Dry Results - Vital Signs Recent Vital Signs: Last Vital Signs Temp 98.6 F 04/17/18 08:44 Pulse 68 04/17/18 08:44 Resp 19 04/17/18 08:44 BP 134/73 04/17/18 08:47 Pulse Ox 95 04/17/18 08:44 - Labs Result Diagrams: 04/16/18 05:55 04/17/18 05:55 Labs: Laboratory Results - last 24 hr 04/16/18 04/16/18 04/17/18 15:55 21:29 05:55 Sodium 139 Potassium 3.1 L Chloride 106 Carbon Dioxide 25 Anion Gap 11 BUN 17 Creatinine 0.6 L Est GFR ( Amer) > 60 Est GFR (Non-Af Amer) > 60 POC Glucose (mg/dL) 346 H 254 H Random Glucose 227 H Calcium 8.8 04/17/18 04/17/18 05:59 11:18 Sodium Potassium Chloride Carbon Dioxide Anion Gap BUN Creatinine Est GFR ( Amer) Est GFR (Non-Af Amer) POC Glucose (mg/dL) 220 H 283 H Random Glucose Calcium Assessment & Plan (1) Urinary retention Status: Acute (2) Urinary tract infection Status: Acute (3) Diabetes mellitus type 2 in obese Status: Acute (4) Infection due to ESBL-producing Escherichia coli Status: Acute - Assessment and Plan (Free Text) Assessment: consider eval IV Merrem min 7 days consider imaging
[2018-04-17] MEDS: Meropenem 500 MG in Sodium Chloride 0.9% 100 ML IVPB SCH (17:21)
[2018-04-17] MEDS: PETROLATUM WHITE LEFTEYE SCH (22:00)
[2018-04-17] MEDS: MINERAL OIL LEFTEYE SCH (22:00)
[2018-04-17] MEDS: [UNRECOGNIZED DRUG - OTHER] LEFTEYE SCH (22:00)
[2018-04-17] MEDS: Latanoprost 0.005% Opht SOUTION OD SCH (22:04)
[2018-04-18] MEDS: Meropenem 500 MG in Sodium Chloride 0.9% 100 ML IVPB SCH ×3 (01:18→16:26)
[2018-04-18] MEDS: Brimonidine 0.2% 50 DROP/5 ML BOTTLE OS SCH ×2 (05:00→16:29)
[2018-04-18] MEDS: Levothyroxine 75 MCG TAB PO SCH (06:55)
[2018-04-18] MEDS: Insulin Regular 100 units/ml SC SCH ×4 (06:56→23:06)
[2018-04-18 07:12] LABS: BASO # 0.1 K/uL (0.0-0.2); BASO % 0.6 % (0.0-2.0); EOS # 0.1 K/uL (0.0-0.7); EOS % 1.4 % (0.0-4.0); HEMOGLOBIN 10.6 g/dL (12.0-16.0); LYMPH # 2.3 K/uL (1.0-4.3); LYMPH % 26.7 % (20.0-40.0); MEAN CELL VOLUME 89.1 fl (81.0-99.0); MEAN CORPUSCULAR HEMOGLOBIN 30.1 pg (27.0-31.0); MEAN CORPUSCULAR HGB CONC 33.9 g/dL (33.0-37.0); MEAN PLATELET VOLUME 9.9 fl (7.2-11.7); MONO # 0.8 K/uL (0.0-0.8); MONO % 9.2 % (0.0-10.0); NEUT # 5.5 K/uL (1.8-7.0); NEUT % 62.1 % (50.0-75.0); NRBC % 0.1 % (0.0-0.0); RBC 3.51 Mil/uL (3.80-5.20); RED CELL DISTRIBUTION WIDTH 14.2 % (11.5-14.5); WHITE BLOOD COUNT 8.8 K/uL (4.8-10.8)
[2018-04-18 07:55] LABS: ALB/GLOB RATIO 0.8 (1.0-2.1); ALBUMIN 2.8 g/dL (3.5-5.0); ALT/SGPT 19 U/L (9-52); AST/SGOT 27 U/L (14-36); BLOOD UREA NITROGEN 16 mg/dl (7-17); CALCIUM 8.7 mg/dL (8.4-10.2); GFR NON-AFRICAN AMERICAN > 60
[2018-04-18] MEDS: Enoxaparin 40 mg Syringe SC SCH (08:34)
[2018-04-18] MEDS: Potassium Chloride 20 mEq ER Tab PO SCH ×2 (08:35→16:27)
[2018-04-18] MEDS: Cholecalciferol 1,000 INTLU TAB PO SCH (08:36)
[2018-04-18] MEDS: GlipiZIDE 2.5 mg SR Tab PO SCH (08:36)
[2018-04-18] MEDS: PrednisoLONE 1% OPTH SUSP OD SCH ×4 (08:37→21:24)
[2018-04-18] MEDS: Lubricant Eye Drops UD OD SCH (08:37)
[2018-04-18] MEDS: Artificial Tears Opht Soln OD SCH ×2 (13:22→16:27)
[2018-04-18] MEDS: Dextrose 5%/Lactated Ringer's 1,000 ML IV SCH (17:39)
[2018-04-18] MEDS: Vancomycin 500 mg (Oral/Rectal USE) PO SCH (21:23)
[2018-04-18] MEDS: Latanoprost 0.005% Opht SOUTION OD SCH (21:23)
[2018-04-18] MEDS: [UNRECOGNIZED DRUG - OTHER] LEFTEYE SCH (21:25)
[2018-04-18] MEDS: MINERAL OIL LEFTEYE SCH (21:25)
[2018-04-18] MEDS: PETROLATUM WHITE LEFTEYE SCH (21:25)
[2018-04-19] MEDS: Meropenem 500 MG in Sodium Chloride 0.9% 100 ML IVPB SCH ×3 (00:05→17:42)
[2018-04-19] MEDS: Dextrose 5%/Lactated Ringer's 1,000 ML IV SCH ×2 (03:00→17:30)
[2018-04-19] MEDS: Vancomycin 500 mg (Oral/Rectal USE) PO SCH ×4 (04:45→22:01)
[2018-04-19] MEDS: Brimonidine 0.2% 50 DROP/5 ML BOTTLE OS SCH ×2 (05:47→17:49)
[2018-04-19] MEDS: Levothyroxine 75 MCG TAB PO SCH (06:46)
[2018-04-19] MEDS: Insulin Regular 100 units/ml SC SCH ×4 (06:54→23:43)
[2018-04-19 07:27] LABS: HEMOGLOBIN 10.4 g/dL (12.0-16.0); MEAN CELL VOLUME 89.7 fl (81.0-99.0); MEAN CORPUSCULAR HEMOGLOBIN 29.5 pg (27.0-31.0); MEAN CORPUSCULAR HGB CONC 32.9 g/dL (33.0-37.0); RBC 3.54 Mil/uL (3.80-5.20); RED CELL DISTRIBUTION WIDTH 14.2 % (11.5-14.5); WHITE BLOOD COUNT 5.9 K/uL (4.8-10.8)
[2018-04-19 07:31] LABS: ALB/GLOB RATIO 0.8 (1.0-2.1); ALBUMIN 2.9 g/dL (3.5-5.0); ALT/SGPT 18 U/L (9-52); AST/SGOT 26 U/L (14-36); BLOOD UREA NITROGEN 15 mg/dl (7-17); CALCIUM 8.7 mg/dL (8.4-10.2); GFR NON-AFRICAN AMERICAN > 60
[2018-04-19] MEDS: Enoxaparin 40 mg Syringe SC SCH (09:36)
[2018-04-19] MEDS: GlipiZIDE 2.5 mg SR Tab PO SCH (09:38)
[2018-04-19] MEDS: Potassium Chloride 20 mEq ER Tab PO SCH ×2 (09:40→17:33)
[2018-04-19] MEDS: Cholecalciferol 1,000 INTLU TAB PO SCH (09:42)
[2018-04-19] MEDS: PrednisoLONE 1% OPTH SUSP OD SCH ×4 (09:48→22:08)
[2018-04-19] MEDS: Artificial Tears Opht Soln OD SCH ×3 (09:50→17:48)
--- NOTE | 2018-04-19 12:22 | CP.PCM.PN ---
Subjective - Date & Time of Evaluation Date of Evaluation: 04/19/18 Time of Evaluation: 10:00 - Subjective Subjective: 82 yo F presents to ED for evaluation of urinary retention and abdominal pain x7 hours. Patient has hx of recurrent UTI. Referred for ID eval of ESBL UTI Objective - Vital Signs/Intake and Output Vital Signs (last 24 hours): Temp Pulse Resp BP Pulse Ox 97.6 F 105 H 20 130/66 95 04/19/18 08:21 04/19/18 08:21 04/19/18 08:21 04/19/18 09:38 04/19/18 08:21 - Medications Medications: Current Medications Acetaminophen/Butalbital/Caffeine (Fioricet) 1 tab PO Q8 PRN PRN Reason: Migraine headache Artificial Tears (Artificial Tears) 0.3 drop OD TID [facility] Last Admin: 04/19/18 09:50 Dose: 0.3 drop Atorvastatin Calcium (Lipitor) 40 mg PO [facility] Last Admin: 04/18/18 21:27 Dose: 40 mg Brimonidine Tartrate (Alphagan 0.2% Opht) 1 drop OS Q12H [facility] Last Admin: 04/19/18 05:47 Dose: 1 drop Cholecalciferol (Vitamin D) 1,000 intlu PO DAILY [facility] Last Admin: 04/19/18 09:42 Dose: 1,000 intlu Clopidogrel Bisulfate (Plavix) 75 mg PO DAILY [facility] Last Admin: 04/19/18 09:42 Dose: 75 mg Donepezil HCl (Aricept) 10 mg PO [facility] Last Admin: 04/18/18 21:22 Dose: 10 mg Famotidine (Pepcid) 20 mg PO BID [facility] Last Admin: 04/19/18 09:41 Dose: 20 mg Glipizide (Glucotrol Xl) 2.5 mg PO BRK [facility] Last Admin: 04/19/18 09:38 Dose: 2.5 mg Home Med (Carboxymethylcellulose Sodium [Lubricant Eye Drops]) 1 drop RIGHTEYE [facility] Home Med (Cyclosporine [Restasis]) 1 drop LEFTEYE Q12H [facility] Home Med (Mineral Oil/Petrolatum,White [Systane Nighttime Eye Ointment]) 1 unit LEFTEYE [facility] Last Admin: 04/18/18 21:25 Dose: 1 unit Meropenem 500 mg/ Sodium (Chloride) 100 mls @ 100 mls/hr IVPB Q8 [facility]; Protocol Last Admin: 04/19/18 09:43 Dose: 100 mls/hr Dextrose/Lactated Ringer's (Dextrose 5%/Lactated Ringer's) 1,000 mls @ 100 mls/hr IV .Q10H [facility] Stop: 04/19/18 17:22 Last Admin: 04/19/18 03:00 Dose: Not Given Insulin Human Regular (Humulin R) 0 units SC ACCU-CHECK [facility]; Protocol Last Admin: 04/19/18 12:12 Dose: 4 unit Latanoprost (Xalatan Opht) 1 drop OD HS [facility] Last Admin: 04/18/18 21:23 Dose: 1 drop Levothyroxine Sodium (Synthroid) 75 mcg PO DAILY@0630 [facility] Last Admin: 04/19/18 06:46 Dose: 75 mcg Meclizine HCl (Antivert) 25 mg PO TID PRN PRN Reason: Dizziness Memantine (Namenda) 10 mg PO Q12 [facility] Last Admin: 04/19/18 09:41 Dose: 10 mg Metoprolol Tartrate (Lopressor) 12.5 mg PO DAILY PRN PRN Reason: SBP >139 Last Admin: 04/19/18 09:38 Dose: 12.5 mg Potassium Chloride (K-Dur 20 Meq Er Tab) 40 meq PO BID [facility] Last Admin: 04/19/18 09:40 Dose: 40 meq Prednisolone Acetate (Pred Forte 1% Opht Susp) 1 drop OD QID [facility] Last Admin: 04/19/18 12:14 Dose: 1 drop Ramipril (Altace) 5 mg PO DAILY [facility] Last Admin: 04/19/18 09:38 Dose: 5 mg Risperidone (Risperdal Tab) 0.25 mg PO QAM [facility] Last Admin: 04/19/18 09:38 Dose: 0.25 mg Risperidone (Risperdal Tab) 0.5 mg PO HS [facility] Last Admin: 04/18/18 21:23 Dose: 0.5 mg Sertraline HCl (Zoloft) 50 mg PO HS [facility] Last Admin: 04/18/18 21:23 Dose: 50 mg Sitagliptin Phosphate (Januvia) 100 mg PO DAILY [facility] Last Admin: 04/19/18 09:39 Dose: 100 mg Timolol Maleate (Timoptic 0.5% Ophth Soln) 1 drop OS Q12H [facility] Last Admin: 04/19/18 05:46 Dose: 1 drop Vancomycin HCl (Vancocin (Oral/Rectal Use)) 125 mg PO Q6 [facility]; Protocol Last Admin: 04/19/18 09:37 Dose: 125 mg - Labs Labs: 04/19/18 05:30 04/19/18 05:30 - Constitutional Appears: Non-toxic, Chronically Ill - Head Exam Head Exam: NORMOCEPHALIC - Eye Exam Eye Exam: absent: Scleral icterus - ENT Exam ENT Exam: Mucous Membranes Dry - Neck Exam Neck Exam: absent: Lymphadenopathy - Respiratory Exam Respiratory Exam: Decreased Breath Sounds - Cardiovascular Exam Cardiovascular Exam: REGULAR RHYTHM - GI/Abdominal Exam GI & Abdominal Exam: Distended, Diminished Bowel Sounds - Rectal Exam Rectal Exam: Deferred - Exam Exam: NORMAL INSPECTION - Back Exam Back Exam: absent: CVA tenderness (L), CVA tenderness (R) - Neurological Exam Neurological Exam: Alert, Awake Assessment and Plan (1) Urinary retention Status: Acute (2) Urinary tract infection Status: Acute (3) Diabetes mellitus type 2 in obese Status: Acute (4) Infection due to ESBL-producing Escherichia coli Status: Acute - Assessment and Plan (Free Text) Assessment: conty iv merrem for ESBL UTI - blood c/s negative contacty isolation
[2018-04-19] MEDS: Latanoprost 0.005% Opht SOUTION OD SCH (22:03)
[2018-04-19] MEDS: [UNRECOGNIZED DRUG - OTHER] LEFTEYE SCH (22:05)
[2018-04-19] MEDS: PETROLATUM WHITE LEFTEYE SCH (22:05)
[2018-04-19] MEDS: MINERAL OIL LEFTEYE SCH (22:05)
--- NOTE | 2018-04-19 22:55 | CP.PCM.PN ---
Subjective - Date & Time of Evaluation Date of Evaluation: 04/18/18 Time of Evaluation: 18:35 - Subjective Subjective: Urine was noted to be ESBL sens to meropenem. Has no fever Has good appetite Objective - Vital Signs/Intake and Output Vital Signs (last 24 hours): Temp Pulse Resp BP Pulse Ox 98.6 F 62 18 114/66 95 04/19/18 16:34 04/19/18 16:34 04/19/18 16:34 04/19/18 16:34 04/19/18 16:34 - Medications Medications: Current Medications Acetaminophen/Butalbital/Caffeine (Fioricet) 1 tab PO Q8 PRN PRN Reason: Migraine headache Artificial Tears (Artificial Tears) 0.3 drop OD TID [facility] Last Admin: 04/19/18 17:48 Dose: 0.3 drop Atorvastatin Calcium (Lipitor) 40 mg PO HS [facility] Last Admin: 04/19/18 22:03 Dose: 40 mg Brimonidine Tartrate (Alphagan 0.2% Opht) 1 drop OS Q12H [facility] Last Admin: 04/19/18 17:49 Dose: 1 drop Cholecalciferol (Vitamin D) 1,000 intlu PO DAILY [facility] Last Admin: 04/19/18 09:42 Dose: 1,000 intlu Clopidogrel Bisulfate (Plavix) 75 mg PO DAILY [facility] Last Admin: 04/19/18 09:42 Dose: 75 mg Donepezil HCl (Aricept) 10 mg PO HS [facility] Last Admin: 04/19/18 22:02 Dose: 10 mg Famotidine (Pepcid) 20 mg PO BID [facility] Last Admin: 04/19/18 17:34 Dose: 20 mg Glipizide (Glucotrol Xl) 2.5 mg PO BRK [facility] Last Admin: 04/19/18 09:38 Dose: 2.5 mg Home Med (Carboxymethylcellulose Sodium [Lubricant Eye Drops]) 1 drop RIGHTEYE [facility] Home Med (Cyclosporine [Restasis]) 1 drop LEFTEYE Q12H [facility] Home Med (Mineral Oil/Petrolatum,White [Systane Nighttime Eye Ointment]) 1 unit LEFTEYE [facility] Last Admin: 04/19/18 22:05 Dose: 1 unit Meropenem 500 mg/ Sodium (Chloride) 100 mls @ 100 mls/hr IVPB Q8 [facility]; Protocol Last Admin: 04/19/18 17:42 Dose: 100 mls/hr Insulin Human Regular (Humulin R) 0 units SC ACCU-CHECK [facility]; Protocol Last Admin: 04/19/18 17:31 Dose: 4 unit Latanoprost (Xalatan Opht) 1 drop OD HS [facility] Last Admin: 04/19/18 22:03 Dose: 1 drop Levothyroxine Sodium (Synthroid) 75 mcg PO DAILY@0630 [facility] Last Admin: 04/19/18 06:46 Dose: 75 mcg Meclizine HCl (Antivert) 25 mg PO TID PRN PRN Reason: Dizziness Memantine (Namenda) 10 mg PO Q12 [facility] Last Admin: 04/19/18 22:08 Dose: 10 mg Metoprolol Tartrate (Lopressor) 12.5 mg PO DAILY PRN PRN Reason: SBP >139 Last Admin: 04/19/18 09:38 Dose: 12.5 mg Potassium Chloride (K-Dur 20 Meq Er Tab) 40 meq PO BID [facility] Last Admin: 04/19/18 17:33 Dose: 40 meq Prednisolone Acetate (Pred Forte 1% Opht Susp) 1 drop OD QID [facility] Last Admin: 04/19/18 22:08 Dose: 1 drop Ramipril (Altace) 5 mg PO DAILY [facility] Last Admin: 04/19/18 09:38 Dose: 5 mg Risperidone (Risperdal Tab) 0.25 mg PO QAM [facility] Last Admin: 04/19/18 09:38 Dose: 0.25 mg Risperidone (Risperdal Tab) 0.5 mg PO [facility] Last Admin: 04/19/18 22:02 Dose: 0.5 mg Sertraline HCl (Zoloft) 50 mg PO HS [facility] Last Admin: 04/19/18 22:02 Dose: 50 mg Sitagliptin Phosphate (Januvia) 100 mg PO DAILY [facility] Last Admin: 04/19/18 09:39 Dose: 100 mg Timolol Maleate (Timoptic 0.5% Ophth Soln) 1 drop OS Q12H [facility] Last Admin: 04/19/18 17:35 Dose: 1 drop Vancomycin HCl (Vancocin (Oral/Rectal Use)) 125 mg PO Q6 [facility]; Protocol Last Admin: 04/19/18 22:01 Dose: 125 mg - Labs Labs: 04/19/18 05:30 10/28/18 05:30 - Eye Exam Eye Exam: Normal appearance - Cardiovascular Exam Cardiovascular Exam: REGULAR RHYTHM - GI/Abdominal Exam GI & Abdominal Exam: Normal Bowel Sounds - Neurological Exam Neurological Exam: Awake Assessment and Plan (1) Urinary tract infection Status: Acute (2) History of ESBL E. 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 difficile colitis Status: Suspected - Assessment and Plan (Free Text) Plan: Con tmeds Follow up with Dr Morton cont tx
--- NOTE | 2018-04-19 23:00 | CP.PCM.PN ---
Subjective - Date & Time of Evaluation Date of Evaluation: 04/19/18 Time of Evaluation: 18:30 - Subjective Subjective: patient remains stable On Meropenem Has no fever Accuchekc still elevated. Objective - Vital Signs/Intake and Output Vital Signs (last 24 hours): Temp Pulse Resp BP Pulse Ox 98.6 F 62 18 114/66 95 04/19/18 16:34 04/19/18 16:34 04/19/18 16:34 04/19/18 16:34 04/19/18 16:34 - Medications Medications: Current Medications Acetaminophen/Butalbital/Caffeine (Fioricet) 1 tab PO Q8 PRN PRN Reason: Migraine headache Artificial Tears (Artificial Tears) 0.3 drop OD TID [facility] Last Admin: 04/19/18 17:48 Dose: 0.3 drop Atorvastatin Calcium (Lipitor) 40 mg PO HS [facility] Last Admin: 04/19/18 22:03 Dose: 40 mg Brimonidine Tartrate (Alphagan 0.2% Opht) 1 drop OS Q12H [facility] Last Admin: 04/19/18 17:49 Dose: 1 drop Cholecalciferol (Vitamin D) 1,000 intlu PO DAILY [facility] Last Admin: 04/19/18 09:42 Dose: 1,000 intlu Clopidogrel Bisulfate (Plavix) 75 mg PO DAILY [facility] Last Admin: 04/19/18 09:42 Dose: 75 mg Donepezil HCl (Aricept) 10 mg PO HS [facility] Last Admin: 04/19/18 22:02 Dose: 10 mg Famotidine (Pepcid) 20 mg PO BID [facility] Last Admin: 04/19/18 17:34 Dose: 20 mg Glipizide (Glucotrol Xl) 2.5 mg PO BRK [facility] Last Admin: 04/19/18 09:38 Dose: 2.5 mg Home Med (Carboxymethylcellulose Sodium [Lubricant Eye Drops]) 1 drop RIGHTEYE [facility] Home Med (Cyclosporine [Restasis]) 1 drop LEFTEYE Q12H [facility] Home Med (Mineral Oil/Petrolatum,White [Systane Nighttime Eye Ointment]) 1 unit LEFTEYE [facility] Last Admin: 04/19/18 22:05 Dose: 1 unit Meropenem 500 mg/ Sodium (Chloride) 100 mls @ 100 mls/hr IVPB Q8 [facility]; Protocol Last Admin: 04/19/18 17:42 Dose: 100 mls/hr Insulin Human Regular (Humulin R) 0 units SC ACCU-CHECK [facility]; Protocol Last Admin: 04/19/18 17:31 Dose: 4 unit Latanoprost (Xalatan Opht) 1 drop OD HS [facility] Last Admin: 04/19/18 22:03 Dose: 1 drop Levothyroxine Sodium (Synthroid) 75 mcg PO DAILY@0630 [facility] Last Admin: 04/19/18 06:46 Dose: 75 mcg Meclizine HCl (Antivert) 25 mg PO TID PRN PRN Reason: Dizziness Memantine (Namenda) 10 mg PO Q12 [facility] Last Admin: 04/19/18 22:08 Dose: 10 mg Metoprolol Tartrate (Lopressor) 12.5 mg PO DAILY PRN PRN Reason: SBP >139 Last Admin: 04/19/18 09:38 Dose: 12.5 mg Potassium Chloride (K-Dur 20 Meq Er Tab) 40 meq PO BID [facility] Last Admin: 04/19/18 17:33 Dose: 40 meq Prednisolone Acetate (Pred Forte 1% Opht Susp) 1 drop OD QID [facility] Last Admin: 04/19/18 22:08 Dose: 1 drop Ramipril (Altace) 5 mg PO DAILY [facility] Last Admin: 04/19/18 09:38 Dose: 5 mg Risperidone (Risperdal Tab) 0.25 mg PO QAM [facility] Last Admin: 04/19/18 09:38 Dose: 0.25 mg Risperidone (Risperdal Tab) 0.5 mg PO HS [facility] Last Admin: 04/19/18 22:02 Dose: 0.5 mg Sertraline HCl (Zoloft) 50 mg PO HS [facility] Last Admin: 04/19/18 22:02 Dose: 50 mg Sitagliptin Phosphate (Januvia) 100 mg PO DAILY [facility] Last Admin: 04/19/18 09:39 Dose: 100 mg Timolol Maleate (Timoptic 0.5% Ophth Soln) 1 drop OS Q12H [facility] Last Admin: 04/19/18 17:35 Dose: 1 drop Vancomycin HCl (Vancocin (Oral/Rectal Use)) 125 mg PO Q6 [facility]; Protocol Last Admin: 04/19/18 22:01 Dose: 125 mg - Labs Labs: 04/19/18 05:30 04/19/18 05:30 - Head Exam Head Exam: NORMAL INSPECTION - Eye Exam Eye Exam: Normal appearance - Respiratory Exam Respiratory Exam: NORMAL BREATHING PATTERN - Cardiovascular Exam Cardiovascular Exam: REGULAR RHYTHM - GI/Abdominal Exam GI & Abdominal Exam: Normal Bowel Sounds - Neurological Exam Neurological Exam: Awake Assessment and Plan (1) Urinary tract infection Status: Acute (2) History of ESBL E. 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 difficile colitis Status: Suspected - Assessment and Plan (Free Text) Plan: Cont meds Con ttx Follow up with Dr malloy TCU for further IV antibiotics
[2018-04-19 23:52] VITALS: RESP 20
[2018-04-20] MEDS: Meropenem 500 MG in Sodium Chloride 0.9% 100 ML IVPB SCH ×2 (00:08→09:16)
[2018-04-20] MEDS: Vancomycin 500 mg (Oral/Rectal USE) PO SCH ×2 (04:50→10:19)
[2018-04-20] MEDS: Brimonidine 0.2% 50 DROP/5 ML BOTTLE OS SCH (04:52)
[2018-04-20] MEDS: Levothyroxine 75 MCG TAB PO SCH (05:41)
[2018-04-20] MEDS: Insulin Regular 100 units/ml SC SCH ×2 (06:14→13:10)
[2018-04-20 08:12] VITALS: BP 162/80; PULSE 59; TEMP 98.2; O2SAT 96
[2018-04-20] MEDS: Potassium Chloride 20 mEq ER Tab PO SCH (09:16)
[2018-04-20] MEDS: GlipiZIDE 2.5 mg SR Tab PO SCH (09:16)
[2018-04-20] MEDS: Cholecalciferol 1,000 INTLU TAB PO SCH (09:19)
[2018-04-20] MEDS: PrednisoLONE 1% OPTH SUSP OD SCH ×2 (09:20→13:11)
[2018-04-20] MEDS: Artificial Tears Opht Soln OD SCH ×2 (09:21→13:05)
--- NOTE | 2018-04-20 11:14 | CP.PCM.PN ---
Subjective - Date & Time of Evaluation Date of Evaluation: 04/20/18 Time of Evaluation: 08:00 - Subjective Subjective: had LBM C Diff ag + toxin neg on PO Vanco rx for UTI in progress daughter at bedside patient comfortable Objective - Vital Signs/Intake and Output Vital Signs (last 24 hours): Temp Pulse Resp BP Pulse Ox 98.2 F 59 L 20 162/80 H 96 04/20/18 08:11 04/20/18 08:11 04/20/18 08:11 04/20/18 09:22 04/20/18 08:11 - Medications Medications: Current Medications Acetaminophen/Butalbital/Caffeine (Fioricet) 1 tab PO Q8 PRN PRN Reason: Migraine headache Artificial Tears (Artificial Tears) 0.3 drop OD TID [facility] Last Admin: 04/20/18 09:21 Dose: 0.3 drop Atorvastatin Calcium (Lipitor) 40 mg PO [facility] Last Admin: 04/19/18 22:03 Dose: 40 mg Brimonidine Tartrate (Alphagan 0.2% Opht) 1 drop OS Q12H [facility] Last Admin: 04/20/18 04:52 Dose: 1 drop Cholecalciferol (Vitamin D) 1,000 intlu PO DAILY [facility] Last Admin: 04/20/18 09:19 Dose: 1,000 intlu Clopidogrel Bisulfate (Plavix) 75 mg PO DAILY [facility] Last Admin: 04/20/18 09:17 Dose: 75 mg Donepezil HCl (Aricept) 10 mg PO HS [facility] Last Admin: 04/19/18 22:02 Dose: 10 mg Famotidine (Pepcid) 20 mg PO BID [facility] Last Admin: 04/20/18 09:17 Dose: 20 mg Glipizide (Glucotrol Xl) 2.5 mg PO BRK [facility] Last Admin: 04/20/18 09:16 Dose: 2.5 mg Home Med (Carboxymethylcellulose Sodium [Lubricant Eye Drops]) 1 drop RIGHTEYE [facility] Home Med (Cyclosporine [Restasis]) 1 drop LEFTEYE Q12H [facility] Home Med (Mineral Oil/Petrolatum,White [Systane Nighttime Eye Ointment]) 1 unit LEFTEYE [facility] Last Admin: 04/19/18 22:05 Dose: 1 unit Meropenem 500 mg/ Sodium (Chloride) 100 mls @ 100 mls/hr IVPB Q8 [facility]; Protocol Last Admin: 04/20/18 09:16 Dose: 100 mls/hr Insulin Human Regular (Humulin R) 0 units SC ACCU-CHECK [facility]; Protocol Last Admin: 04/20/18 06:14 Dose: 4 unit Latanoprost (Xalatan Opht) 1 drop OD HS [facility] Last Admin: 04/19/18 22:03 Dose: 1 drop Levothyroxine Sodium (Synthroid) 75 mcg PO DAILY@0630 [facility] Last Admin: 04/20/18 05:41 Dose: 75 mcg Meclizine HCl (Antivert) 25 mg PO TID PRN PRN Reason: Dizziness Memantine (Namenda) 10 mg PO Q12 [facility] Last Admin: 04/20/18 09:17 Dose: 10 mg Metoprolol Tartrate (Lopressor) 12.5 mg PO DAILY PRN PRN Reason: SBP >139 Last Admin: 04/20/18 09:18 Dose: 12.5 mg Potassium Chloride (K-Dur 20 Meq Er Tab) 40 meq PO BID [facility] Last Admin: 04/20/18 09:16 Dose: 40 meq Prednisolone Acetate (Pred Forte 1% Opht Susp) 1 drop OD QID [facility] Last Admin: 04/20/18 09:20 Dose: 1 drop Ramipril (Altace) 5 mg PO DAILY [facility] Last Admin: 04/20/18 09:22 Dose: 5 mg Risperidone (Risperdal Tab) 0.25 mg PO QAM [facility] Last Admin: 04/20/18 09:17 Dose: 0.25 mg Risperidone (Risperdal Tab) 0.5 mg PO HS [facility] Last Admin: 04/19/18 22:02 Dose: 0.5 mg Sertraline HCl (Zoloft) 50 mg PO HS [facility] Last Admin: 04/19/18 22:02 Dose: 50 mg Sitagliptin Phosphate (Januvia) 100 mg PO DAILY [facility] Last Admin: 04/20/18 09:22 Dose: 100 mg Timolol Maleate (Timoptic 0.5% Ophth Soln) 1 drop OS Q12H [facility] Last Admin: 04/20/18 04:52 Dose: 1 drop Vancomycin HCl (Vancocin (Oral/Rectal Use)) 125 mg PO Q6 [facility]; Protocol Last Admin: 04/20/18 10:19 Dose: 125 mg - Labs Labs: 04/19/18 05:30 04/19/18 05:30 - Constitutional Appears: Cachectic - Head Exam Head Exam: NORMOCEPHALIC - Eye Exam Eye Exam: PERRL - ENT Exam ENT Exam: Mucous Membranes Dry - Neck Exam Neck Exam: absent: Lymphadenopathy - Respiratory Exam Respiratory Exam: Decreased Breath Sounds - Cardiovascular Exam Cardiovascular Exam: REGULAR RHYTHM - GI/Abdominal Exam GI & Abdominal Exam: Distended, Soft. absent: Tenderness - Rectal Exam Rectal Exam: Deferred - Exam Exam: NORMAL INSPECTION - Extremities Exam Extremities Exam: absent: Pedal Edema - Back Exam Back Exam: absent: CVA tenderness (L), CVA tenderness (R) Assessment and Plan (1) Urinary retention Status: Acute (2) Urinary tract infection Status: Acute (3) Diabetes mellitus type 2 in obese Status: Acute (4) Infection due to ESBL-producing Escherichia coli Status: Acute
--- NOTE | 2018-04-20 12:37 | CP.PCM.PN ---
Subjective - Date & Time of Evaluation Date of Evaluation: 04/20/18 Time of Evaluation: 11:00 Objective - Vital Signs/Intake and Output Vital Signs (last 24 hours): Temp Pulse Resp BP Pulse Ox 98.2 F 59 L 20 162/80 H 96 04/20/18 08:11 04/20/18 08:11 04/20/18 08:11 04/20/18 09:22 04/20/18 08:11 - Medications Medications: Current Medications Acetaminophen/Butalbital/Caffeine (Fioricet) 1 tab PO Q8 PRN PRN Reason: Migraine headache Artificial Tears (Artificial Tears) 0.3 drop OD TID [facility] Last Admin: 04/20/18 09:21 Dose: 0.3 drop Atorvastatin Calcium (Lipitor) 40 mg PO [facility] Last Admin: 04/19/18 22:03 Dose: 40 mg Brimonidine Tartrate (Alphagan 0.2% Opht) 1 drop OS Q12H [facility] Last Admin: 04/20/18 04:52 Dose: 1 drop Cholecalciferol (Vitamin D) 1,000 intlu PO DAILY [facility] Last Admin: 04/20/18 09:19 Dose: 1,000 intlu Clopidogrel Bisulfate (Plavix) 75 mg PO DAILY [facility] Last Admin: 04/20/18 09:17 Dose: 75 mg Donepezil HCl (Aricept) 10 mg PO [facility] Last Admin: 04/19/18 22:02 Dose: 10 mg Famotidine (Pepcid) 20 mg PO BID [facility] Last Admin: 04/20/18 09:17 Dose: 20 mg Glipizide (Glucotrol Xl) 2.5 mg PO BRK [facility] Last Admin: 04/20/18 09:16 Dose: 2.5 mg Home Med (Carboxymethylcellulose Sodium [Lubricant Eye Drops]) 1 drop RIGHTEYE [facility] Home Med (Cyclosporine [Restasis]) 1 drop LEFTEYE Q12H [facility] Home Med (Mineral Oil/Petrolatum,White [Systane Nighttime Eye Ointment]) 1 unit LEFTEYE [facility] Last Admin: 04/19/18 22:05 Dose: 1 unit Meropenem 500 mg/ Sodium (Chloride) 100 mls @ 100 mls/hr IVPB Q8 [facility]; Protocol Last Admin: 04/20/18 09:16 Dose: 100 mls/hr Insulin Human Regular (Humulin R) 0 units SC ACCU-CHECK [facility]; Protocol Last Admin: 04/20/18 06:14 Dose: 4 unit Latanoprost (Xalatan Opht) 1 drop OD HS [facility] Last Admin: 04/19/18 22:03 Dose: 1 drop Levothyroxine Sodium (Synthroid) 75 mcg PO DAILY@0630 [facility] Last Admin: 04/20/18 05:41 Dose: 75 mcg Meclizine HCl (Antivert) 25 mg PO TID PRN PRN Reason: Dizziness Memantine (Namenda) 10 mg PO Q12 [facility] Last Admin: 04/20/18 09:17 Dose: 10 mg Metoprolol Tartrate (Lopressor) 12.5 mg PO DAILY PRN PRN Reason: SBP >139 Last Admin: 04/20/18 09:18 Dose: 12.5 mg Potassium Chloride (K-Dur 20 Meq Er Tab) 40 meq PO BID [facility] Last Admin: 04/20/18 09:16 Dose: 40 meq Prednisolone Acetate (Pred Forte 1% Opht Susp) 1 drop OD QID [facility] Last Admin: 04/20/18 09:20 Dose: 1 drop Ramipril (Altace) 5 mg PO DAILY [facility] Last Admin: 04/20/18 09:22 Dose: 5 mg Risperidone (Risperdal Tab) 0.25 mg PO QAM [facility] Last Admin: 04/20/18 09:17 Dose: 0.25 mg Risperidone (Risperdal Tab) 0.5 mg PO [facility] Last Admin: 04/19/18 22:02 Dose: 0.5 mg Sertraline HCl (Zoloft) 50 mg PO [facility] Last Admin: 04/19/18 22:02 Dose: 50 mg Sitagliptin Phosphate (Januvia) 100 mg PO DAILY [facility] Last Admin: 04/20/18 09:22 Dose: 100 mg Timolol Maleate (Timoptic 0.5% Ophth Soln) 1 drop OS Q12H [facility] Last Admin: 04/20/18 04:52 Dose: 1 drop Vancomycin HCl (Vancocin (Oral/Rectal Use)) 125 mg PO Q6 [facility]; Protocol Last Admin: 04/20/18 10:19 Dose: 125 mg - Labs Labs: 04/19/18 05:30 04/19/18 05:30
--- NOTE | 2018-04-21 14:48 | CP.PCM.DIS ---
Provider - Provider Date of Admission: 04/15/18 10:33 Attending physician: Morris Mcginnis MD Consults: 04/15/18 12:52 Wound Care [Nursing Referral for Wound Care] Routine Comment: Physician Instructions: Reason For Exam: intertrigo and denuded areas Time Spent in preparation of Discharge (in minutes): 37 Diagnosis - Discharge Diagnosis (1) Urinary tract infection Status: Acute (2) ESBL (extended spectrum beta-lactamase) producing bacteria infection Status: Acute (3) Abdominal pain Status: Acute Hospital Course - Lab Results Lab Results: Micro Results 04/15/18 10:47 Blood Blood Culture - Final NO GROWTH AFTER 5 DAYS 04/15/18 10:47 Blood Gram Stain - Final TEST NOT PERFORMED 04/15/18 08:45 Urine Urine Culture - Final Escherichia Coli Most Recent Lab Values WBC 5.9 K/uL (4.8-10.8) 04/19/18 05:30 RBC 3.54 Mil/uL (3.80-5.20) L 04/19/18 05:30 Hgb 10.4 g/dL (12.0-16.0) L 04/19/18 05:30 Hct 31.7 % (34.0-47.0) L 04/19/18 05:30 MCV 89.7 fl (81.0-99.0) 04/19/18 05:30 MCH 29.5 pg (27.0-31.0) 04/19/18 05:30 MCHC 32.9 g/dL (33.0-37.0) L 04/19/18 05:30 RDW 14.2 % (11.5-14.5) 04/19/18 05:30 Plt Count 318 K/uL (130-400) 04/19/18 05:30 MPV 9.9 fl (7.2-11.7) 04/18/18 05:30 Neut % (Auto) 62.1 % (50.0-75.0) 04/18/18 05:30 Lymph % (Auto) 26.7 % (20.0-40.0) 04/18/18 05:30 [place] % (Auto) 9.2 % (0.0-10.0) 04/18/18 05:30 Eos % (Auto) 1.4 % (0.0-4.0) 04/18/18 05:30 Baso % (Auto) 0.6 % (0.0-2.0) 04/18/18 05:30 Neut # (Auto) 5.5 K/uL (1.8-7.0) 04/18/18 05:30 Lymph # (Auto) 2.3 K/uL (1.0-4.3) 04/18/18 05:30 [place] # (Auto) 0.8 K/uL (0.0-0.8) 04/18/18 05:30 Eos # (Auto) 0.1 K/uL (0.0-0.7) 04/18/18 05:30 Baso # (Auto) 0.1 K/uL (0.0-0.2) 04/18/18 05:30 pO2 21 mm/Hg (30-55) L 04/15/18 09:03 VBG pH 7.39 (7.32-7.43) 04/15/18 09:03 VBG pCO2 61 mmHg (40-60) H 04/15/18 09:03 VBG HCO3 30.7 mmol/L 04/15/18 09:03 VBG Total CO2 38.8 mmol/L (22-28) H 04/15/18 09:03 VBG O2 Sat (Calc) 39.3 % (40-65) L 04/15/18 09:03 VBG Base Excess 9.6 mmol/L (0.0-2.0) H 04/15/18 09:03 VBG Potassium 2.9 mmol/L (3.6-5.2) L 04/15/18 09:03 Sodium 139.0 mmol/L (132-148) 04/15/18 09:03 Chloride 103.0 mmol/L (98-107) 04/15/18 09:03 Glucose 176 mg/dL (65-105) H 04/15/18 09:03 Lactate 1.2 mmol/L (0.7-2.1) 04/15/18 09:03 FiO2 21.0 % 04/15/18 09:03 Sodium 136 mmol/l (132-148) 04/19/18 05:30 Potassium 3.7 MMOL/L (3.6-5.0) 04/19/18 05:30 Chloride 102 mmol/L (98-107) 04/19/18 05:30 Carbon Dioxide 27 mmol/L (22-30) 04/19/18 05:30 Anion Gap 11 (10-20) 04/19/18 05:30 BUN 15 mg/dl (7-17) 04/19/18 05:30 Creatinine 0.6 mg/dl (0.7-1.2) L 04/19/18 05:30 Est GFR ( Amer) > 60 04/19/18 05:30 Est GFR (Non-Af Amer) > 60 04/19/18 05:30 POC Glucose (mg/dL) 393 mg/dL (65-110) H 04/20/18 11:53 Random Glucose 319 mg/dL (65-105) H 04/19/18 05:30 Hemoglobin A1c 10.4 % (4.2-6.5) H 04/19/18 05:30 Calcium 8.7 mg/dL (8.4-10.2) 04/19/18 05:30 Total Bilirubin 0.2 mg/dl (0.2-1.3) 04/19/18 05:30 AST 26 U/L (14-36) 04/19/18 05:30 ALT 18 U/L (9-52) 04/19/18 05:30 Alkaline Phosphatase 65 U/L (38-126) 04/19/18 05:30 Total Protein 6.5 G/DL (6.3-8.2) 04/19/18 05:30 Albumin 2.9 g/dL (3.5-5.0) L 04/19/18 05:30 Globulin 3.6 gm/dL (2.2-3.9) 04/19/18 05:30 Albumin/Globulin Ratio 0.8 (1.0-2.1) L 04/19/18 05:30 TSH 3rd Generation 2.98 mIU/ML (0.46-4.68) 04/19/18 05:30 Venous Blood Potassium 2.9 mmol/L (3.6-5.2) L 04/15/18 09:03 Urine Color Yellow (YELLOW) 04/15/18 08:45 Urine Clarity Cloudy (Clear) 04/15/18 08:45 Urine pH 6.0 (5.0-8.0) 04/15/18 08:45 Ur Specific [place] 1.013 (1.003-1.030) 04/15/18 08:45 Urine Protein 100 mg/dL (NEGATIVE) 04/15/18 08:45 Urine Glucose (UA) >=500 mg/dL (Normal) 04/15/18 08:45 Urine Ketones Trace mg/dL (NEGATIVE) 04/15/18 08:45 Urine Blood Small (NEGATIVE) 04/15/18 08:45 Urine Nitrate Negative (NEGATIVE) 04/15/18 08:45 Urine Bilirubin Negative (NEGATIVE) 04/15/18 08:45 Urine Urobilinogen 0.2-1.0 mg/dL (0.2-1.0) 04/15/18 08:45 Ur Leukocyte Esterase Large Ajay/uL (Negative) 04/15/18 08:45 Urine RBC (Auto) 4 /hpf (0-3) H 04/15/18 08:45 Urine Microscopic WBC 57 /hpf (0-5) H 04/15/18 08:45 Ur Squamous Epith Cells < 1 /hpf (0-5) 04/15/18 08:45 Urine Bacteria Mod (<OCC) H 04/15/18 08:45 C. difficile Ag & Toxin Positive antigen (NEGATIVE) 04/18/18 17:25 - Hospital Course Hospital Course: 82 yo F with PMHx of IDDM, HTN, hypothyroidsm, CVA and dementia was admitted due to urinary retention and UTI. Patient with several admissions in the past for same reason. urine culture pos for ESBL E coli. ID was consulted and pt placed in IV abx, patient condition stable and transferred to TCU to complete IV abx course. Blood cultures negative. Discharge Exam - Head Exam Head Exam: NORMAL INSPECTION - Eye Exam Eye Exam: EOMI, PERRL - Respiratory Exam Respiratory Exam: Clear to PA & Lateral - Cardiovascular Exam Cardiovascular Exam: REGULAR RHYTHM, +S1, +S2 - GI/Abdominal Exam GI & Abdominal Exam: Normal Bowel Sounds, Soft. absent: Distended, Tenderness - Neurological Exam Neurological exam: Alert, Oriented x3 - Skin Skin Exam: Dry, Warm Discharge Plan - Follow Up Plan Condition: FAIR Disposition: REHAB FACILITY/REHAB UNIT Instructions: Urinary Tract Infection, Adult (DC), Urinary Retention (DC) Referrals: Madi Schroeder MD [Staff Provider] - Morris Mcginnis MD [Staff Provider] -
--- NOTE | 2018-05-06 10:16 | PQF ---
PROVIDER RESPONSE TEXT: Diabetes with hyperglycemia REVIEWER QUERY TEXT: Diabetic Associated Manifestations Please specify any manifestations associated / due to diabetes Glucose running 153-302 Such as: -- Diabetes with hyperglycemia -- Diabetes with hypoglycemia -- Diabetes with renal manifestation -- Diabetes with neurologic manifestation -- Diabetes with ophthalmic manifestation -- Diabetes with peripheral circulatory manifestation -- Other, please specify The patient's Clinical Indicators include: History of DM II Glucose running 153-302 rx: Accuchecks with coverage, Glucotrol XLJenaro, Query created by: Melanie Thomas on 04/16/2018 7:24 AM Electronically signed by: Jake Cha 05/06/2018 10:13 AM
--- NOTE | 2018-05-06 10:16 | PQF ---
PROVIDER RESPONSE TEXT: Provider was unable to determine a response for this query. REVIEWER QUERY TEXT: Present On Admission It is unclear whether a diagnosis was present on admission. Your help is needed. Please clarify the POA status of Suspected C. Difficile Colitis: Such as: -- Present on admission -- Not present on admission The patient's Clinical Indicators include: Admitted with urinary retention with UTI. Urine CS: E COLI ESBL +. Stool C Difficile: Positive Anti gen. On Vancomycin Query created by: Melanie Thomas on 04/20/2018 2:23 PM Electronically signed by: Jake Cha 05/06/2018 10:13 AM
--- NOTE | 2018-05-06 10:16 | PQF ---
PROVIDER RESPONSE TEXT: Provider was unable to determine a response for this query. REVIEWER QUERY TEXT: Heart Failure Acuity and Type Congestive Heart Failure is documented in the Medical Record. Please document the type and acuity (in cludes probable or suspected) or unable to determine Such as: Type: -- Combined systolic and diastolic (heart failure with reduced ejection fraction and diastolic) dysfu nction -- Diastolic (HFpEF) -- Systolic (HFrEF) -- Left heart failure -- Right heart failure -- Right heart failure due to left heart failure -- High output failure -- End stage heart failure -- Other, please specify Acuity: -- Acute -- Chronic -- Acute on chronic -- Other, please specify The patient's Clinical Indicators include: PMH: template CHF: YES Medication Altace. Query created by: Melanie Thomas on 04/16/2018 7:38 AM Electronically signed by: Jake Cha 05/06/2018 10:13 AM
--- NOTE | 2018-05-06 10:16 | PQF ---
PROVIDER RESPONSE TEXT: Hypokalemia, treated with k dur REVIEWER QUERY TEXT: Clarification of Clinical Diagnostic Findings Please clarify documentation or clinical relevance for the clinical / diagnostic findings or whether those are insignificant or unable to be further specified. K level 3.1 and given K-Dur in the ER The patient's Clinical Indicators include: Admitted with UTI and urinary retention. Query created by: Melanie Thomas on 04/16/2018 7:20 AM Electronically signed by: Jake Cha 05/06/2018 10:13 AM
--- NOTE | 2018-05-06 10:16 | PQF ---
PROVIDER RESPONSE TEXT: Stage 2 sacral ulcer present on admission REVIEWER QUERY TEXT: Conflicting Documentation Clarification Discrepancy noted regarding the skin assessment: ER: some decubitus skin breakdown Admitting RN: redness and open wounds noted to sacrum and buttocks. prop drawer:.Sacrum is clean 1) Please clarify if this patient has a pressure ulcer of the sacrum present on admission 2) If yes please document along with the stage. A single mention or documentation of multiple diagnoses for the same clinical presentation appears in the record. Please clarify the diagnosis/diagnoses. Please also document if the condition is: -- Confirmed and current -- Confirmed, treated and resolved -- Ruled out -- Other, please specify The patient's Clinical Indicators include: ER: some decubitus skin breakdown Admitting RN: redness and open wounds noted to sacrum and buttocks. prop drawer: .Sacrum is clean Query created by: Melanie Thomas on 04/16/2018 7:44 AM Electronically signed by: Jake Cha 05/06/2018 10:13 AM
== END 2018-04-20 16:05 | DRG 690 ==
LOC: H.ER 05:11 → H.ERHOLD 10:33 → H.MEDSURG1 12:17
PROVIDERS: ADMIT Family Medicine; ATTEND Family Medicine
DX: N39.0 Urinary tract infection, site not specified (principal); A04.72 Enterocolitis due to Clostridium difficile, not specified as recurrent; F02.80 Dementia in other diseases classified elsewhere, unspecified severity, without behavioral disturbance, psychotic disturbance, mood disturbance, and anxiety; G30.9 Alzheimer's disease, unspecified; Z16.12 Extended spectrum beta lactamase (ESBL) resistance; B96.20 Unspecified Escherichia coli [E. coli] as the cause of diseases classified elsewhere; E03.9 Hypothyroidism, unspecified; Z79.4 Long term (current) use of insulin; E78.00 Pure hypercholesterolemia, unspecified; E78.5 Hyperlipidemia, unspecified; I11.0 Hypertensive heart disease with heart failure; I50.9 Heart failure, unspecified; I69.398 Other sequelae of cerebral infarction; H54.7 Unspecified visual loss; G43.909 Migraine, unspecified, not intractable, without status migrainosus; F32.9 Major depressive disorder, single episode, unspecified; F41.9 Anxiety disorder, unspecified; Z88.2 Allergy status to sulfonamides; Z88.6 Allergy status to analgesic agent; Z88.3 Allergy status to other anti-infective agents; Z91.041 Radiographic dye allergy status; K29.70 Gastritis, unspecified, without bleeding; R33.8 Other retention of urine; L89.152 Pressure ulcer of sacral region, stage 2; E11.65 Type 2 diabetes mellitus with hyperglycemia; E87.6 Hypokalemia; E66.9 Obesity, unspecified

== ENCOUNTER 2018-04-20 15:45 | Inpatient (IN) | payer OTHER ==
[2018-04-20 16:19] VITALS: BMI 22.8
[2018-04-20] MEDS ORDERED: Apap-Butalbital-Caffeine 325-50-40mg Tab PO PRN (17:32)
[2018-04-20] MEDS ORDERED: Patient's Own Med (Meropenem 500 Mg In Ns [Merrem Iv 500 Mg/Ns 50 Ml] 500 MG) IV SCH (18:00)
[2018-04-20] MEDS ORDERED: Patient's Own Med (Brimonidine Tartrate/Timolol [Combigan 0.2%-0.5% Eye Drops] 1 DROP) LEFTEYE SCH (21:00)
[2018-04-20] MEDS: Brimonidine 0.2% 50 DROP/5 ML BOTTLE OS SCH (21:00)
[2018-04-20] MEDS: Potassium Chloride 20 mEq ER Tab PO SCH (21:31)
[2018-04-20] MEDS: Meropenem 500 MG in Sodium Chloride 0.9% 100 ML IVPB SCH (21:32)
[2018-04-20] MEDS: PrednisoLONE 1% OPTH SUSP OS SCH (21:33)
[2018-04-20] MEDS: Vancomycin 500 mg (Oral/Rectal USE) PO SCH (21:34)
[2018-04-20] MEDS: Latanoprost 0.005% Opht SOUTION OS SCH (21:35)
[2018-04-20] MEDS: Insulin Regular 100 units/ml SC SCH (21:42)
[2018-04-20] MEDS ORDERED: Latanoprost 0.005% Opht SOUTION OD SCH (22:00)
[2018-04-20] MEDS ORDERED: PrednisoLONE 1% OPTH SUSP OD SCH (22:00)
[2018-04-21] MEDS: Vancomycin 500 mg (Oral/Rectal USE) PO SCH ×4 (04:25→21:32)
[2018-04-21] MEDS: Meropenem 500 MG in Sodium Chloride 0.9% 100 ML IVPB SCH ×3 (05:07→21:37)
[2018-04-21] MEDS: Levothyroxine 75 MCG TAB PO SCH (05:43)
[2018-04-21] MEDS: Insulin Regular 100 units/ml SC SCH ×4 (06:40→21:44)
[2018-04-21] MEDS: Brimonidine 0.2% 50 DROP/5 ML BOTTLE OS SCH ×2 (08:54→21:30)
[2018-04-21] MEDS: GlipiZIDE 2.5 mg SR Tab PO SCH (08:55)
[2018-04-21] MEDS: Potassium Chloride 20 mEq ER Tab PO SCH ×2 (08:56→16:52)
[2018-04-21] MEDS: Artificial Tears Opht Soln OS SCH ×3 (08:56→16:51)
[2018-04-21] MEDS: PrednisoLONE 1% OPTH SUSP OS SCH ×4 (08:57→21:30)
[2018-04-21] MEDS: Cholecalciferol 1,000 INTLU TAB PO SCH (08:58)
[2018-04-21] MEDS ORDERED: Lubricant Eye Drops UD OS SCH (09:00)
--- NOTE | 2018-04-21 11:49 | CP.PCM.HP ---
Past Patient History - Infectious Disease Hx of Infectious Diseases: None - Tetanus Immunizations Tetanus Immunization: Unknown - Past Medical History & Family History Past Medical History?: Yes - Past Social History Smoking Status: Never Smoked - CARDIAC Hx Atrial Fibrillation: No Hx Cardia Arrhythmia: No Hx Congestive Heart Failure: Yes Hx Hypercholesterolemia: Yes Hx Hypertension: Yes Hx Mitral Valve Prolapse: No Hx Pacemaker: No Hx Peripheral Edema: Yes (occasional lower extremities) - PULMONARY Hx Asthma: No Hx Bronchitis: No Hx Chronic Obstructive Pulmonary Disease (COPD): No Hx Emphysema: No Hx Pneumonia: Yes Hx Pulmonary Embolism: No Hx Sleep Apnea: No - NEUROLOGICAL Hx Alzheimer's Disease: Yes Hx Dementia: Yes Hx Migraine: Yes Hx Multiple Sclerosis: No Hx Parkinson's Disease: No Hx Seizures: No Hx Transient Ischemic Attacks (TIA): Yes - HEENT Hx HEENT Problems: Yes Hx Blind: No Hx Cataracts: Yes Hx Deafness: No Hx Difficulty Chewing: No Hx Epistaxis: No Hx Glaucoma: Yes Hx Macular Degeneration: No Other/Comment: corneal transplant - RENAL Hx Chronic Kidney Disease: No Hx Kidney Stones: No - ENDOCRINE/METABOLIC Hx Hyperthyroidism: No Hx Hypothyroidism: Yes - HEMATOLOGICAL/ONCOLOGICAL Hx Anemia: Yes Hx Human Immunodeficiency Virus (HIV): No Hx Sickle Cell Disease: No - INTEGUMENTARY Hx Dermatological Problems: No Hx Basil Cell: No Hx Duke: No Hx Cellulitis: No Hx Eczema: No Hx Melanoma: No Hx Psoriasis: No Hx Squamous Cell: No - MUSCULOSKELETAL/RHEUMATOLOGICAL Hx Falls: No - GASTROINTESTINAL Hx Crohn's Disease: No Hx Diverticulitis: Yes (Diverticulosis) Hx Gall Bladder Disease: No Hx Gastritis: Yes Hx Pancreatitis: No - GENITOURINARY/GYNECOLOGICAL Hx Sexually Transmitted Disorders: No - PSYCHIATRIC Hx Substance Use: No - SURGICAL HISTORY Hx Appendectomy: No Hx Carotid Endarterectomy: No Hx Cholecystectomy: No Hx Coronary Artery Bypass Graft: No Hx Coronary Stent: No Hx Tonsillectomy: Yes (partial thyroidectomy) - ANESTHESIA Hx Anesthesia: Yes Hx Anesthesia Reactions: Yes (HALLUCINATION, CONFUSION) Hx Malignant Hyperthermia: No Meds Allergies/Adverse Reactions: Allergies Allergy/AdvReac Type Severity Reaction Status Date / Time aspirin Allergy NAUSEA Verified 04/20/18 16:18 ciprofloxacin Allergy REDNESS Verified 04/20/18 16:18 Sulfa (Sulfonamide Allergy RASH Verified 04/20/18 16:18 Antibiotics) Iodinated Contrast- Oral and AdvReac VOMITING Verified 04/20/18 16:18 IV Dye metformin AdvReac DIARRHEA Verified 04/20/18 16:18 Results - Vital Signs Recent Vital Signs: Last Vital Signs Temp 98.1 F 04/21/18 08:16 Pulse 77 04/21/18 08:16 Resp 20 04/21/18 08:16 BP 154/87 H 04/21/18 08:55 Pulse Ox 92 L 04/21/18 08:16 - Labs Labs: Laboratory Results - last 24 hr 04/20/18 04/20/18 04/21/18 16:52 20:51 05:08 POC Glucose (mg/dL) 367 H 288 H 236 H 04/21/18 10:55 POC Glucose (mg/dL) 250 H
--- NOTE | 2018-04-21 14:10 | CP.PCM.DIS ---
Provider - Provider Date of Admission: 04/20/18 16:19 Attending physician: Morris Mcginnis MD Time Spent in preparation of Discharge (in minutes): 37 Diagnosis - Discharge Diagnosis (1) Urinary tract infection Status: Acute (2) Abdominal pain Status: Acute (3) ESBL (extended spectrum beta-lactamase) producing bacteria infection Status: Acute Hospital Course - Lab Results Lab Results: Most Recent Lab Values POC Glucose (mg/dL) 250 mg/dL (65-110) H 04/21/18 10:55 - Hospital Course Hospital Course: 2 yo F with PMHx of IDDM, HTN, hypothyroidsm, CVA and dementia was admitted due to urinary retention and UTI. Patient with several admissions in the past for same reason. urine culture pos for ESBL E coli. ID was consulted and pt placed in IV abx, patient condition stable and transferred to TCU to complete IV abx course. Blood cultures negative. Discharge Exam - Head Exam Head Exam: NORMAL INSPECTION - Eye Exam Eye Exam: EOMI, PERRL - Respiratory Exam Respiratory Exam: Clear to PA & Lateral - Cardiovascular Exam Cardiovascular Exam: REGULAR RHYTHM, +S1, +S2 - GI/Abdominal Exam GI & Abdominal Exam: Soft. absent: Distended, Tenderness - Neurological Exam Neurological exam: Alert - Skin Skin Exam: Dry, Warm Discharge Plan - Follow Up Plan Condition: GOOD Disposition: REHAB FACILITY/REHAB UNIT
--- NOTE | 2018-04-21 14:22 | CP.PCM.HP ---
Addendum entered and electronically signed by Jake Cha MD 04/25/18 20:02: disregard eye exam, error. Original Note: History of Present Illness - History of Present Illness History of Present Illness: 82 yo F with PMHx of IDDM, HTN, hypothyroidsm, CVA and dementia previously admitted to Med/Surg due to ESBL E coli UTI. Patient currently on IV abx transferred to TCU to complete abx course. Patient reports feeling better and otherwise she denies any complaints of dysuria, hematuria, nausea, vomiting, diarrhea, fever, cough, chest pain, or shortness of breath. PMD: Madi Vera PMHx: IDDM type 2, HTN, hypothyroidism, CVA with b/l blindess, left side weakness, , diverticulitis, advanced dementia, recurrent UTI SurgHx: partial thyroidectomy, tonsillectomy FMHx: noncontributory SHx: denies tobacco/Etoh or drugs Allergies: sulfanamide antibiotics, iodine contrast, metformin; aspirin listed but pt takes at home and has taken in hospital before Meds as bellow Present on Admission - Present on Admission Any Indicators Present on Admission: No Review of Systems - Review of Systems All systems: reviewed and no additional remarkable complaints except (HPI) Past Patient History - Infectious Disease Hx of Infectious Diseases: None - Tetanus Immunizations Tetanus Immunization: Unknown - Past Medical History & Family History Past Medical History?: Yes - Past Social History Smoking Status: Never Smoked - CARDIAC Hx Atrial Fibrillation: No Hx Cardia Arrhythmia: No Hx Congestive Heart Failure: Yes Hx Hypercholesterolemia: Yes Hx Hypertension: Yes Hx Mitral Valve Prolapse: No Hx Pacemaker: No Hx Peripheral Edema: Yes (occasional lower extremities) - PULMONARY Hx Asthma: No Hx Bronchitis: No Hx Chronic Obstructive Pulmonary Disease (COPD): No Hx Emphysema: No Hx Pneumonia: Yes Hx Pulmonary Embolism: No Hx Sleep Apnea: No - NEUROLOGICAL Hx Alzheimer's Disease: Yes Hx Dementia: Yes Hx Migraine: Yes Hx Multiple Sclerosis: No Hx Parkinson's Disease: No Hx Seizures: No Hx Transient Ischemic Attacks (TIA): Yes - HEENT Hx HEENT Problems: Yes Hx Blind: No Hx Cataracts: Yes Hx Deafness: No Hx Difficulty Chewing: No Hx Epistaxis: No Hx Glaucoma: Yes Hx Macular Degeneration: No Other/Comment: corneal transplant - RENAL Hx Chronic Kidney Disease: No Hx Kidney Stones: No - ENDOCRINE/METABOLIC Hx Hyperthyroidism: No Hx Hypothyroidism: Yes - HEMATOLOGICAL/ONCOLOGICAL Hx Anemia: Yes Hx Human Immunodeficiency Virus (HIV): No Hx Sickle Cell Disease: No - INTEGUMENTARY Hx Dermatological Problems: No Hx Basil Cell: No Hx Duke: No Hx Cellulitis: No Hx Eczema: No Hx Melanoma: No Hx Psoriasis: No Hx Squamous Cell: No - MUSCULOSKELETAL/RHEUMATOLOGICAL Hx Falls: No - GASTROINTESTINAL Hx Crohn's Disease: No Hx Diverticulitis: Yes (Diverticulosis) Hx Gall Bladder Disease: No Hx Gastritis: Yes Hx Pancreatitis: No - GENITOURINARY/GYNECOLOGICAL Hx Sexually Transmitted Disorders: No - PSYCHIATRIC Hx Substance Use: No - SURGICAL HISTORY Hx Appendectomy: No Hx Carotid Endarterectomy: No Hx Cholecystectomy: No Hx Coronary Artery Bypass Graft: No Hx Coronary Stent: No Hx Tonsillectomy: Yes (partial thyroidectomy) - ANESTHESIA Hx Anesthesia: Yes Hx Anesthesia Reactions: Yes (HALLUCINATION, CONFUSION) Hx Malignant Hyperthermia: No Meds Allergies/Adverse Reactions: Allergies Allergy/AdvReac Type Severity Reaction Status Date / Time aspirin Allergy NAUSEA Verified 04/20/18 16:18 ciprofloxacin Allergy REDNESS Verified 04/20/18 16:18 Sulfa (Sulfonamide Allergy RASH Verified 04/20/18 16:18 Antibiotics) Iodinated Contrast- Oral and AdvReac VOMITING Verified 04/20/18 16:18 IV Dye metformin AdvReac DIARRHEA Verified 04/20/18 16:18 Physical Exam - Constitutional Appears: No Acute Distress - Head Exam Head Exam: NORMAL INSPECTION - Eye Exam Eye Exam: EOMI - Respiratory Exam Respiratory Exam: Clear to Auscultation Bilateral, NORMAL BREATHING PATTERN - Cardiovascular Exam Cardiovascular Exam: REGULAR RHYTHM, +S1, +S2 - GI/Abdominal Exam GI & Abdominal Exam: Normal Bowel Sounds, Soft. absent: Distended, Tenderness - Extremities Exam Extremities exam: Negative for: pedal edema - Neurological Exam Neurological exam: Alert, Oriented x3 - Skin Skin Exam: Dry, Warm Results - Vital Signs Recent Vital Signs: Last Vital Signs Temp 98.1 F 04/21/18 08:16 Pulse 75 04/21/18 13:05 Resp 20 04/21/18 08:16 BP 118/63 04/21/18 13:05 Pulse Ox 92 L 04/21/18 08:16 - Labs Labs: Laboratory Results - last 24 hr 04/20/18 04/20/1804/21/18 16:52 20:51 05:08 POC Glucose (mg/dL) 367 H 288 H 236 H 04/21/18 10:55 POC Glucose (mg/dL) 250 H Assessment & Plan - Assessment and Plan (Free Text) Assessment: 82 yo F with PMHx of IDDM, HTN, hypothyroidsm, CVA and dementia and recurrent UTI admitted due to ESBL E coli Urinary tract infection. TCU for further IV antibiotics. Plan: - afebrile, WBC wnl - continue on IV abx - ID consulted, input appreciated - continue home meds - scd, lovenox - rest of plan as ordered Case seen and examined with Dr Bernaluez
[2018-04-21] MEDS: Latanoprost 0.005% Opht SOUTION OS SCH (21:29)
[2018-04-21] MEDS: Mineral Oil/White Petrolatum Ophth Oint OD SCH ×2 (21:37→21:46)
[2018-04-22] MEDS: Meropenem 500 MG in Sodium Chloride 0.9% 100 ML IVPB SCH ×3 (04:17→21:03)
[2018-04-22] MEDS: Vancomycin 500 mg (Oral/Rectal USE) PO SCH ×4 (04:17→21:12)
[2018-04-22] MEDS: Levothyroxine 75 MCG TAB PO SCH (06:42)
[2018-04-22] MEDS: Insulin Regular 100 units/ml SC SCH ×4 (06:43→22:46)
[2018-04-22] MEDS: Potassium Chloride 20 mEq ER Tab PO SCH ×2 (08:07→17:00)
[2018-04-22] MEDS: GlipiZIDE 2.5 mg SR Tab PO SCH (08:07)
[2018-04-22] MEDS: Cholecalciferol 1,000 INTLU TAB PO SCH (08:08)
[2018-04-22] MEDS: Artificial Tears Opht Soln OS SCH ×3 (08:13→16:56)
[2018-04-22] MEDS: PrednisoLONE 1% OPTH SUSP OS SCH ×4 (08:13→21:10)
[2018-04-22] MEDS: Brimonidine 0.2% 50 DROP/5 ML BOTTLE OS SCH ×2 (08:13→21:07)
--- NOTE | 2018-04-22 12:39 | CP.PCM.CON ---
History of Present Illness - History of Present Illness History of Present Illness: 82 yo F Patient has hx of recurrent UTI. Referred for ID eval of ESBL UTI PMHx: IDDM type 2, HTN, hypothyroidism, CVA with b/l blindess, left side weakness, , diverticulitis, advanced dementia, recurrent UTI SurgHx: partial thyroidectomy, tonsillectomy FMHx: noncontributory SHx: denies tobacco/Etoh or drugs Allergies: sulfanamide antibiotics, iodine contrast, metformin; aspirin listed but pt takes at home and has taken in hospital before Meds as bellow Review of Systems - Review of Systems Systems not reviewed;Unavailable: Altered Mental Status All systems: reviewed and no additional remarkable complaints except - Constitutional Constitutional: As Per HPI - EENT Eyes: absent: As Per HPI, Blind Spots, Blurred Vision, Change in Vision, Decreased Night Vision, Diplopia, Discharge, Dry Eye, Exophthalmos, Floaters, Irritation, Itchy Eyes, Loss of Peripheral Vision, Pain, Photophobia, Requires Corrective Lenses, Sees Flashes, Spots in Vision, Tunnel Vision, Other Visual Disturbances, Loss of Vision, Other Ears: absent: As Per HPI, Decreased Hearing, Ear Discharge, Ear Pain, Tinnitus, Abnormal Hearing, Disequilibrium, Dizziness, Other Nose/Mouth/Throat: absent: As Per HPI, Epistaxis, Nasal Congestion, Nasal Discharge, Nasal Obstruction, Nasal Trauma, Nose Pain, Post Nasal Drip, Sinus Pain, Sinus Pressure, Bleeding Gums, Change in Voice, Dental Pain, Dry Mouth, Dysphagia, Halitosis, Hoarsness, Lip Swelling, Mouth Lesions, Mouth Pain, Odynophagia, Sore Throat, Throat Swelling, Tongue Swelling, Facial Pain, Neck Pain, Neck Mass, Other - Breasts Breasts: absent: As Per HPI, Change in Shape, Mass, Pain, Nipple Discharge, Nipple Inversion, Skin Changes, Swelling, Other - Cardiovascular Cardiovascular: absent: As Per HPI, Acrocyanosis, Chest Pain, Chest Pain at Rest, Chest Pain with Activity, Claudication, Diaphoresis, Dyspnea, Dyspnea on Exertion, Edema, Irregular Heart Rhythm, Pain Radiating to Arm/Neck/Jaw, Leg Edema, Leg Ulcers, Lightheadedness, Orthopnea, Palpitations, Paroxysmal Nocturnal Dyspnea, Pedal Edema, Radiating Pain, Rapid Heart Rate, Slow Heart Rate, Syncope, Other - Respiratory Respiratory: absent: As Per HPI, Cough, Dyspnea, Hemoptysis, Dyspnea on Exertion, Wheezing, Snoring, Stridor, Pain on Inspiration, Chest Congestion, Excessive Mucous Production, Change in Mucous Color, Pain with Coughing, Other - Gastrointestinal Gastrointestinal: absent: As Per HPI, Abdominal Pain, Belching, Bloating, Change in Bowel Habits, Change in Stool Character, Coffee Ground Emesis, Constipation, Cramping, Diarrhea, Dyspepsia, Dysphagia, Early Satiety, Excessive Flatus, Fecal Incontinence, Heartburn, Hematemesis, Hematochezia, Loose Stools, Melena, Nausea, Odynophagia, Temesmus, Vomiting, Other - Genitourinary Genitourinary: As Per HPI - Reproductive: Female Reproductive:Female: absent: As Per HPI, Amenorrhea, Amenorrhea/ Control, Currently Menstual, Cycle <21 Days, Cycle >35 Days, Cycle Variable, Menses 1-7 Days, Menses >/= 8 Days, Menses Variable, Cycle > 4 Weeks Between, No Menses for 6 Months, Heavy Menses, Light Menses, Normal Menses, Spotting Between Cycles, S/P Hysterectomy, Menopausal, Post Menopausal, Premenarche, Abnormal Vaginal Bleeding, Dysmenorrhea, Dyspareunia, Genital Lesions, Genital Pruritis, Pelvic Pain, Prolapse Symptoms, Sexual Dysfunction, Vaginal Discharge, Vaginal Dryness, Vaginal Odor, Vaginal Pruritis, Other - Menstruation Menstruation: absent: As Per HPI, Amenorrhea, Amenorrhea/ Control, Currently Menstual, Cycle <21 Days, Cycle >35 Days, Cycle Variable, Menses 1-7 Days, Menses >/= 8 Days, Menses Variable, Cycle > 4 Weeks Between, No Menses for 6 Months, Heavy Menses, Light Menses, Normal Menses, Spotting Between Cycles, S/P Hysterectomy, Menopausal, Post Menopausal, Premenarche, Abnormal Vaginal Bleeding, Dysmenorrhea, Other - Musculoskeletal Musculoskeletal: absent: As Per HPI, Abnormal Gait, Arthralgias, Atrophy, Back Pain, Deformity, Joint Swelling, Limited Range of Motion, Loss of Height, Muscle Cramps, Muscle Weakness, Myalgias, Neck Pain, Numbness, Radiating Pain into Limb, Stiffness, Tingling, Other - Integumentary Integumentary: absent: As Per HPI, Acne, Alopecia, Bleeding Lesions, Change in Hair, Change in Nails, Change in Pigmentation, Changing Lesions, Dry Skin, Erythema, Furuncle, Hirsutism, Lesions, New Lesions, Non-Healing Lesions, Photosensitivity, Pruritus, Rash, Skin Pain, Skin Ulcer, Sores, Striae, Swelling, Unusual Bruising, Wounds, Jaundice, Other - Neurological Neurological: As Per HPI - Psychiatric Psychiatric: As Per HPI - Endocrine Endocrine: absent: As Per HPI, Change in Body Appearance, Change in Libido, Cold Intolorance, Deepening of Voice, Excessive Sweating, Fatigue, Flushing, Heat Intolorance, Increase in Ring/Shoe/Hat Size, Palpitations, Polydipsia, Polyphagia, Polyuria, Other - Hematologic/Lymphatic Hematologic: absent: As Per HPI, Easy Bleeding, Easy Bruising, Lymphadenopathy, Other Review of Systems - Constitutional Constitutional: As Per HPI - EENT Eyes: absent: As Per HPI, Blind Spots, Blurred Vision, Change in Vision, Decreased Night Vision, Diplopia, Discharge, Dry Eye, Exophthalmos, Floaters, Irritation, Itchy Eyes, Loss of Peripheral Vision, Pain, Photophobia, Requires Corrective Lenses, Sees Flashes, Spots in Vision, Tunnel Vision, Other Visual Disturbances, Loss of Vision, Other Ears: absent: As Per HPI, Decreased Hearing, Ear Discharge, Ear Pain, Tinnitus, Abnormal Hearing, Disequilibrium, Dizziness, Other Nose/Mouth/Throat: absent: As Per HPI, Epistaxis, Nasal Congestion, Nasal Discharge, Nasal Obstruction, Nasal Trauma, Nose Pain, Post Nasal Drip, Sinus Pain, Sinus Pressure, Bleeding Gums, Change in Voice, Dental Pain, Dry Mouth, Dysphagia, Halitosis, Hoarsness, Lip Swelling, Mouth Lesions, Mouth Pain, Odynophagia, Sore Throat, Throat Swelling, Tongue Swelling, Facial Pain, Neck Pain, Neck Mass, Other - Breasts Breasts: absent: As Per HPI, Change in Shape, Mass, Pain, Nipple Discharge, Nipple Inversion, Skin Changes, Swelling, Other - Cardiovascular Cardiovascular: absent: As Per HPI, Acrocyanosis, Chest Pain, Chest Pain at Rest, Chest Pain with Activity, Claudication, Diaphoresis, Dyspnea, Dyspnea on Exertion, Edema, Irregular Heart Rhythm, Pain Radiating to Arm/Neck/Jaw, Leg Edema, Leg Ulcers, Lightheadedness, Orthopnea, Palpitations, Paroxysmal Nocturnal Dyspnea, Pedal Edema, Radiating Pain, Rapid Heart Rate, Slow Heart Rate, Syncope, Other - Respiratory Respiratory: absent: As Per HPI, Cough, Dyspnea, Hemoptysis, Dyspnea on Exertion, Wheezing, Snoring, Stridor, Pain on Inspiration, Chest Congestion, Excessive Mucous Production, Change in Mucous Color, Pain with Coughing, Other - Gastrointestinal Gastrointestinal: absent: As Per HPI, Abdominal Pain, Belching, Bloating, Change in Bowel Habits, Change in Stool Character, Coffee Ground Emesis, Constipation, Cramping, Diarrhea, Dyspepsia, Dysphagia, Early Satiety, Excessive Flatus, Fecal Incontinence, Heartburn, Hematemesis, Hematochezia, Loose Stools, Melena, Nausea, Odynophagia, Temesmus, Vomiting, Other - Genitourinary Genitourinary: As Per HPI - Reproductive: Female Reproductive:Female: absent: As Per HPI, Amenorrhea, Amenorrhea/ Control, Currently Menstual, Cycle <21 Days, Cycle >35 Days, Cycle Variable, Menses 1-7 Days, Menses >/= 8 Days, Menses Variable, Cycle > 4 Weeks Between, No Menses for 6 Months, Heavy Menses, Light Menses, Normal Menses, Spotting Between Cycles, S/P Hysterectomy, Menopausal, Post Menopausal, Premenarche, Abnormal Vaginal Bleeding, Dysmenorrhea, Dyspareunia, Genital Lesions, Genital Pruritis, Pelvic Pain, Prolapse Symptoms, Sexual Dysfunction, Vaginal Discharge, Vaginal Dryness, Vaginal Odor, Vaginal Pruritis, Other - Menstruation Menstruation: absent: As Per HPI, Amenorrhea, Amenorrhea/ Control, Currently Menstual, Cycle <21 Days, Cycle >35 Days, Cycle Variable, Menses 1-7 Days, Menses >/= 8 Days, Menses Variable, Cycle > 4 Weeks Between, No Menses for 6 Months, Heavy Menses, Light Menses, Normal Menses, Spotting Between Cycles, S/P Hysterectomy, Menopausal, Post Menopausal, Premenarche, Abnormal Vaginal Bleeding, Dysmenorrhea, Other - Musculoskeletal Musculoskeletal: absent: As Per HPI, Abnormal Gait, Arthralgias, Atrophy, Back Pain, Deformity, Joint Swelling, Limited Range of Motion, Loss of Height, Muscle Cramps, Muscle Weakness, Myalgias, Neck Pain, Numbness, Radiating Pain into Limb, Stiffness, Tingling, Other - Integumentary Integumentary: absent: As Per HPI, Acne, Alopecia, Bleeding Lesions, Change in Hair, Change in Nails, Change in Pigmentation, Changing Lesions, Dry Skin, Erythema, Furuncle, Hirsutism, Lesions, New Lesions, Non-Healing Lesions, Photosensitivity, Pruritus, Rash, Skin Pain, Skin Ulcer, Sores, Striae, Swelling, Unusual Bruising, Wounds, Jaundice, Other - Neurological Neurological: absent: As Per HPI, Abnormal Gait, Abnormal Hearing, Abnormal Movements, Abnormal Speech, Behavioral Changes, Burning Sensations, Confusion, Convulsions, Disequilibrium, Dizziness, Numbness, Focal Weakness, Frequent Falls, Headaches, Lack of Coordination, Loss of Vision, Memory Loss, Paresthesias, Radicular Pain, Restless Legs, Sensory Deficit, Syncope, Tingling, Tremor, Vertigo, Weakness, Other Visual Disturbances, Other - Psychiatric Psychiatric: absent: As Per HPI, Abnormal Sleep Pattern, Anhedonia, Anxiety, Auditory Hallucinations, Behavioral Changes, Change in Appetite, Change in Libido, Confusion, Depression, Difficulty Concentrating, Hallucinations, Homicidal Ideation, Hopelessness, Irritability, Memory Loss, Mood Swings, Panic Attacks, Paranoia, Suicidal Ideation, Visual Hallucinations, Tactile Hallucinations, Other - Endocrine Endocrine: absent: As Per HPI, Change in Body Appearance, Change in Libido, Cold Intolorance, Deepening of Voice, Excessive Sweating, Fatigue, Flushing, Heat Intolorance, Increase in Ring/Shoe/Hat Size, Palpitations, Polydipsia, Polyphagia, Polyuria, Other Past Patient History - Infectious Disease Hx of Infectious Diseases: None - Tetanus Immunizations Tetanus Immunization: Unknown - Past Medical History & Family History Past Medical History?: Yes - Past Social History Smoking Status: Never Smoked - CARDIAC Hx Atrial Fibrillation: No Hx Cardia Arrhythmia: No Hx Congestive Heart Failure: Yes Hx Hypercholesterolemia: Yes Hx Hypertension: Yes Hx Mitral Valve Prolapse: No Hx Pacemaker: No Hx Peripheral Edema: Yes (occasional lower extremities) - PULMONARY Hx Asthma: No Hx Bronchitis: No Hx Chronic Obstructive Pulmonary Disease (COPD): No Hx Emphysema: No Hx Pneumonia: Yes Hx Pulmonary Embolism: No Hx Sleep Apnea: No - NEUROLOGICAL Hx Alzheimer's Disease: Yes Hx Dementia: Yes Hx Migraine: Yes Hx Multiple Sclerosis: No Hx Parkinson's Disease: No Hx Seizures: No Hx Transient Ischemic Attacks (TIA): Yes - HEENT Hx HEENT Problems: Yes Hx Blind: No Hx Cataracts: Yes Hx Deafness: No Hx Difficulty Chewing: No Hx Epistaxis: No Hx Glaucoma: Yes Hx Macular Degeneration: No Other/Comment: corneal transplant - RENAL Hx Chronic Kidney Disease: No Hx Kidney Stones: No - ENDOCRINE/METABOLIC Hx Hyperthyroidism: No Hx Hypothyroidism: Yes - HEMATOLOGICAL/ONCOLOGICAL Hx Anemia: Yes Hx Human Immunodeficiency Virus (HIV): No Hx Sickle Cell Disease: No - INTEGUMENTARY Hx Dermatological Problems: No Hx Basil Cell: No Hx Duke: No Hx Cellulitis: No Hx Eczema: No Hx Melanoma: No Hx Psoriasis: No Hx Squamous Cell: No - MUSCULOSKELETAL/RHEUMATOLOGICAL Hx Falls: No - GASTROINTESTINAL Hx Crohn's Disease: No Hx Diverticulitis: Yes (Diverticulosis) Hx Gall Bladder Disease: No Hx Gastritis: Yes Hx Pancreatitis: No - GENITOURINARY/GYNECOLOGICAL Hx Sexually Transmitted Disorders: No - PSYCHIATRIC Hx Substance Use: No - SURGICAL HISTORY Hx Appendectomy: No Hx Carotid Endarterectomy: No Hx Cholecystectomy: No Hx Coronary Artery Bypass Graft: No Hx Coronary Stent: No Hx Tonsillectomy: Yes (partial thyroidectomy) - ANESTHESIA Hx Anesthesia: Yes Hx Anesthesia Reactions: Yes (HALLUCINATION, CONFUSION) Hx Malignant Hyperthermia: No Meds Allergies/Adverse Reactions: Allergies Allergy/AdvReac Type Severity Reaction Status Date / Time aspirin Allergy NAUSEA Verified 04/20/18 16:18 ciprofloxacin Allergy REDNESS Verified 04/20/18 16:18 Sulfa (Sulfonamide Allergy RASH Verified 04/20/18 16:18 Antibiotics) Iodinated Contrast- Oral and AdvReac VOMITING Verified 04/20/18 16:18 IV Dye metformin AdvReac DIARRHEA Verified 04/20/18 16:18 - Medications Medications: Current Medications Acetaminophen/Butalbital/Caffeine (Fioricet) 1 tab PO Q8H PRN PRN Reason: Migraine headache Artificial Tears (Lacri-Lube) 1 applic OD HS KIMMY Last Admin: 04/21/18 21:46 Dose: 1 applic Artificial Tears (Artificial Tears) 1 drop OS TID KIMMY Last Admin: 04/22/18 12:02 Dose: 1 drop Atorvastatin Calcium (Lipitor) 40 mg PO HS KIMMY Last Admin: 04/21/18 21:36 Dose: 40 mg Brimonidine Tartrate (Alphagan 0.2% Opht) 1 drop OS Q12 [facility] Last Admin: 04/22/18 08:13 Dose: 1 drop Cholecalciferol (Vitamin D) 1,000 intlu PO DAILY [facility] Last Admin: 04/22/18 08:08 Dose: 1,000 intlu Clopidogrel Bisulfate (Plavix) 75 mg PO DAILY [facility] Last Admin: 04/22/18 08:08 Dose: 75 mg Donepezil HCl (Aricept) 10 mg PO HS [facility] Last Admin: 04/21/18 21:44 Dose: 10 mg Famotidine (Pepcid) 20 mg PO BID [facility] Last Admin: 04/22/18 08:08 Dose: 20 mg Glipizide (Glucotrol Xl) 2.5 mg PO BRK [facility] Last Admin: 04/22/18 08:07 Dose: 2.5 mg Meropenem 500 mg/ Sodium (Chloride) 100 mls @ 100 mls/hr IVPB Q8@0500,1300,2100 [facility]; Protocol Last Admin: 04/22/18 12:00 Dose: 100 mls/hr Insulin Human Regular (Humulin R) 0 units SC ACHS [facility]; Protocol Last Admin: 04/22/18 11:58 Dose: 4 u Latanoprost (Xalatan Opht) 1 drop OS HS [facility] Last Admin: 04/21/18 21:29 Dose: 1 drop Levothyroxine Sodium (Synthroid) 75 mcg PO DAILY@0630 [facility] Last Admin: 04/22/18 06:42 Dose: 75 mcg Meclizine HCl (Antivert) 25 mg PO TID PRN PRN Reason: Dizziness Memantine (Namenda) 10 mg PO Q12 [facility] Last Admin: 04/22/18 08:08 Dose: 10 mg Metoprolol Tartrate (Lopressor) 12.5 mg PO DAILY PRN PRN Reason: SBP >139 Last Admin: 04/22/18 08:09 Dose: 12.5 mg Nystatin (Nystop Topical Powder) 1 applic TOP TID [facility] Last Admin: 04/22/18 12:02 Dose: 1 applic Potassium Chloride (K-Dur 20 Meq Er Tab) 40 meq PO BID [facility] Last Admin: 04/22/18 08:07 Dose: 40 meq Prednisolone Acetate (Pred Forte 1% Opht Susp) 1 drop OS QID [facility] Last Admin: 04/22/18 12:02 Dose: 1 drop Ramipril (Altace) 5 mg PO DAILY [facility] Last Admin: 04/22/18 08:06 Dose: 5 mg Risperidone (Risperdal Tab) 0.25 mg PO QAM [facility] Last Admin: 04/22/18 08:08 Dose: 0.25 mg Risperidone (Risperdal Tab) 0.5 mg PO HS [facility] Last Admin: 04/21/18 21:30 Dose: 0.5 mg Sertraline HCl (Zoloft) 50 mg PO HS [facility] Last Admin: 04/21/18 21:32 Dose: 50 mg Sitagliptin Phosphate (Januvia) 100 mg PO DAILY [facility] Last Admin: 04/22/18 08:07 Dose: 100 mg Timolol Maleate (Timoptic 0.5% Oph Soln) 1 drop OS Q12 [facility] Last Admin: 04/22/18 08:12 Dose: 1 drop Vancomycin HCl (Vancocin (Oral/Rectal Use)) 125 mg PO Q6 [facility]; Protocol Last Admin: 04/22/18 10:03 Dose: 125 mg Physical Exam - Constitutional Appears: Non-toxic, Chronically Ill - Head Exam Head Exam: NORMOCEPHALIC - Eye Exam Eye Exam: absent: Scleral icterus - ENT Exam ENT Exam: Mucous Membranes Dry - Neck Exam Neck exam: Negative for: Lymphadenopathy - Respiratory Exam Respiratory Exam: Decreased Breath Sounds - Cardiovascular Exam Cardiovascular Exam: REGULAR RHYTHM - GI/Abdominal Exam GI & Abdominal Exam: Diminished Bowel Sounds, Soft. absent: Tenderness - Rectal Exam Rectal Exam: Deferred - Exam Exam: NORMAL INSPECTION - Extremities Exam Extremities exam: Positive for: normal capillary refill, pedal pulses present. Negative for: calf tenderness, pedal edema, tenderness - Back Exam Back exam: absent: CVA tenderness (L), CVA tenderness (R) - Neurological Exam Neurological exam: Altered, CN II-XII Intact, Reflexes Normal - Psychiatric Exam Psychiatric exam: Depressed - Skin Skin Exam: Dry Results - Vital Signs Recent Vital Signs: Last Vital Signs Temp 98.1 F 04/22/18 07:29 Pulse 74 04/22/18 08:09 Resp 20 04/22/18 07:29 BP 167/90 H 04/22/18 08:09 Pulse Ox 95 04/22/18 07:29 - Labs Labs: Laboratory Results - last 24 hr 04/21/18 04/21/18 04/22/18 15:54 20:56 05:04 POC Glucose (mg/dL) 286 H 281 H 201 H 04/22/18 10:57 POC Glucose (mg/dL) 301 H Assessment & Plan (1) Altered mental status Status: Acute Priority: High (2) Diabetes mellitus type 2 in obese Status: Acute (3) ESBL (extended spectrum beta-lactamase) producing bacteria infection Status: Acute - Assessment and Plan (Free Text) Assessment: cont iv rx as ordered eval
[2018-04-22 12:48] LABS: INR 1.1; PROTHROMBIN TIME 12.1 Seconds (9.8-13.1)
[2018-04-22] MEDS: Latanoprost 0.005% Opht SOUTION OS SCH (21:09)
[2018-04-22] MEDS: Mineral Oil/White Petrolatum Ophth Oint OD SCH (21:12)
[2018-04-23] MEDS: Vancomycin 500 mg (Oral/Rectal USE) PO SCH ×3 (04:39→17:12)
[2018-04-23] MEDS: Meropenem 500 MG in Sodium Chloride 0.9% 100 ML IVPB SCH ×3 (06:02→23:10)
[2018-04-23] MEDS: Levothyroxine 75 MCG TAB PO SCH (06:05)
[2018-04-23] MEDS: Insulin Regular 100 units/ml SC SCH ×4 (06:48→23:08)
[2018-04-23] MEDS: GlipiZIDE 2.5 mg SR Tab PO SCH (08:30)
[2018-04-23] MEDS: Artificial Tears Opht Soln OS SCH ×3 (09:00→16:50)
[2018-04-23] MEDS: Brimonidine 0.2% 50 DROP/5 ML BOTTLE OS SCH ×2 (09:05→23:04)
[2018-04-23] MEDS: PrednisoLONE 1% OPTH SUSP OS SCH ×4 (09:36→23:13)
[2018-04-23] MEDS: Potassium Chloride 20 mEq ER Tab PO SCH ×2 (09:36→17:13)
[2018-04-23] MEDS: Cholecalciferol 1,000 INTLU TAB PO SCH (09:41)
[2018-04-24] MEDS: Vancomycin 500 mg (Oral/Rectal USE) PO SCH ×5 (00:15→22:06)
[2018-04-24] MEDS: Latanoprost 0.005% Opht SOUTION OS SCH ×2 (00:24→22:00)
[2018-04-24] MEDS: Mineral Oil/White Petrolatum Ophth Oint OD SCH ×2 (00:30→22:02)
[2018-04-24] MEDS: Meropenem 500 MG in Sodium Chloride 0.9% 100 ML IVPB SCH ×3 (05:59→21:52)
[2018-04-24] MEDS: Levothyroxine 75 MCG TAB PO SCH (06:00)
[2018-04-24] MEDS: Insulin Regular 100 units/ml SC SCH ×4 (07:19→22:15)
[2018-04-24] MEDS: Brimonidine 0.2% 50 DROP/5 ML BOTTLE OS SCH ×2 (09:31→21:55)
[2018-04-24] MEDS: GlipiZIDE 2.5 mg SR Tab PO SCH (09:32)
[2018-04-24] MEDS: Artificial Tears Opht Soln OS SCH ×3 (09:36→17:51)
[2018-04-24] MEDS: Potassium Chloride 20 mEq ER Tab PO SCH ×2 (09:36→17:54)
[2018-04-24] MEDS: PrednisoLONE 1% OPTH SUSP OS SCH ×4 (09:37→22:09)
[2018-04-24] MEDS: Cholecalciferol 1,000 INTLU TAB PO SCH (09:38)
[2018-04-24 10:49] LABS: HEMOGLOBIN 10.1 g/dL (12.0-16.0); MEAN CELL VOLUME 89.6 fl (81.0-99.0); MEAN CORPUSCULAR HEMOGLOBIN 29.5 pg (27.0-31.0); RBC 3.44 Mil/uL (3.80-5.20); RED CELL DISTRIBUTION WIDTH 14.1 % (11.5-14.5); WHITE BLOOD COUNT 6.4 K/uL (4.8-10.8)
[2018-04-24 12:27] LABS: BLOOD UREA NITROGEN 15 mg/dl (7-17); CALCIUM 9.2 mg/dL (8.4-10.2); GFR NON-AFRICAN AMERICAN > 60
[2018-04-24] MEDS: Enoxaparin 40 mg Syringe SC SCH (22:13)
[2018-04-25] MEDS: Vancomycin 500 mg (Oral/Rectal USE) PO SCH ×4 (04:24→21:01)
[2018-04-25] MEDS: Meropenem 500 MG in Sodium Chloride 0.9% 100 ML IVPB SCH ×3 (04:24→20:32)
[2018-04-25] MEDS: Levothyroxine 75 MCG TAB PO SCH (06:58)
[2018-04-25] MEDS: Insulin Regular 100 units/ml SC SCH ×4 (06:59→22:19)
[2018-04-25] MEDS: Cholecalciferol 1,000 INTLU TAB PO SCH (09:24)
[2018-04-25] MEDS: Potassium Chloride 20 mEq ER Tab PO SCH ×2 (09:24→17:16)
[2018-04-25] MEDS: GlipiZIDE 2.5 mg SR Tab PO SCH (09:26)
[2018-04-25] MEDS: Brimonidine 0.2% 50 DROP/5 ML BOTTLE OS SCH ×2 (09:28→20:51)
[2018-04-25] MEDS: PrednisoLONE 1% OPTH SUSP OS SCH ×4 (09:28→21:11)
[2018-04-25] MEDS: Artificial Tears Opht Soln OS SCH ×3 (09:29→17:15)
--- NOTE | 2018-04-25 20:03 | CP.PCM.PN ---
Subjective - Date & Time of Evaluation Date of Evaluation: 04/22/18 Time of Evaluation: 11:00 - Subjective Subjective: patient seen and examined at bedside. no acute events overnight. no other complaints reported. Objective - Vital Signs/Intake and Output Vital Signs (last 24 hours): Temp Pulse Resp BP Pulse Ox 97.9 F 60 20 120/54 L 97 04/25/18 16:39 04/25/18 16:39 04/25/18 16:39 04/25/18 16:39 04/25/18 16:39 - Medications Medications: Current Medications Acetaminophen/Butalbital/Caffeine (Fioricet) 1 tab PO Q8H PRN PRN Reason: Migraine headache Artificial Tears (Lacri-Lube) 1 applic OD HS [facility] Last Admin: 04/24/18 22:02 Dose: 1 applic Artificial Tears (Artificial Tears) 1 drop OS TID [facility] Last Admin: 04/25/18 17:15 Dose: 1 drop Atorvastatin Calcium (Lipitor) 40 mg PO HS [facility] Last Admin: 04/24/18 22:00 Dose: 40 mg Brimonidine Tartrate (Alphagan 0.2% Opht) 1 drop OS Q12 [facility] Last Admin: 04/25/18 09:28 Dose: 1 drop Cholecalciferol (Vitamin D) 1,000 intlu PO DAILY [facility] Last Admin: 04/25/18 09:24 Dose: 1,000 intlu Clopidogrel Bisulfate (Plavix) 75 mg PO DAILY [facility] Last Admin: 04/25/18 09:25 Dose: 75 mg Donepezil HCl (Aricept) 10 mg PO HS [facility] Last Admin: 04/24/18 22:01 Dose: 10 mg Enoxaparin Sodium (Lovenox) 40 mg SC HS [facility]; Protocol Last Admin: 04/24/18 22:13 Dose: 40 mg Famotidine (Pepcid) 20 mg PO BID [facility] Last Admin: 04/25/18 17:17 Dose: 20 mg Glipizide (Glucotrol Xl) 2.5 mg PO BRK [facility] Last Admin: 04/25/18 09:26 Dose: 2.5 mg Meropenem 500 mg/ Sodium (Chloride) 100 mls @ 100 mls/hr IVPB Q8@0500,1300,2100 [facility]; Protocol Last Admin: 04/25/18 12:22 Dose: 100 mls/hr Insulin Human Regular (Humulin R) 0 units SC ACHS [facility]; Protocol Last Admin: 04/25/18 17:16 Dose: 2 u Latanoprost (Xalatan Opht) 1 drop OS HS [facility] Last Admin: 04/24/18 22:00 Dose: 1 drop Levothyroxine Sodium (Synthroid) 75 mcg PO DAILY@0630 [facility] Last Admin: 04/25/18 06:58 Dose: 75 mcg Meclizine HCl (Antivert) 25 mg PO TID PRN PRN Reason: Dizziness Memantine (Namenda) 10 mg PO Q12 [facility] Last Admin: 04/25/18 09:23 Dose: 10 mg Metoprolol Tartrate (Lopressor) 12.5 mg PO DAILY PRN PRN Reason: SBP >139 Last Admin: 04/25/18 09:24 Dose: 12.5 mg Nystatin (Nystop Topical Powder) 1 applic TOP TID [facility] Last Admin: 04/25/18 12:21 Dose: 1 applic Potassium Chloride (K-Dur 20 Meq Er Tab) 40 meq PO BID [facility] Last Admin: 04/25/18 17:16 Dose: 40 meq Prednisolone Acetate (Pred Forte 1% Opht Susp) 1 drop OS QID [facility] Last Admin: 04/25/18 17:17 Dose: 1 drop Ramipril (Altace) 5 mg PO DAILY [facility] Last Admin: 04/25/18 09:26 Dose: 5 mg Risperidone (Risperdal Tab) 0.25 mg PO QAM [facility] Last Admin: 04/25/18 09:23 Dose: 0.25 mg Risperidone (Risperdal Tab) 0.5 mg PO [facility] Last Admin: 04/24/18 22:01 Dose: 0.5 mg Sertraline HCl (Zoloft) 50 mg PO HS [facility] Last Admin: 04/24/18 22:01 Dose: 50 mg Sitagliptin Phosphate (Januvia) 100 mg PO DAILY [facility] Last Admin: 04/25/18 09:26 Dose: 100 mg Timolol Maleate (Timoptic 0.5% Ophth Soln) 1 drop OS Q12 [facility] Last Admin: 04/25/18 09:28 Dose: 1 drop Vancomycin HCl (Vancocin (Oral/Rectal Use)) 125 mg PO Q6 [facility]; Protocol Last Admin: 04/25/18 16:00 Dose: 125 mg - Labs Labs: 04/24/18 10:45 04/24/18 12:03 PT 12.1 Seconds (9.8-13.1) 04/22/18 12:32 INR 1.1 04/22/18 12:32 - Additional Findings Additional findings: - Constitutional Appears: No Acute Distress - Head Exam Head Exam: NORMAL INSPECTION - Respiratory Exam Respiratory Exam: Clear to Auscultation Bilateral, NORMAL BREATHING PATTERN - Cardiovascular Exam Cardiovascular Exam: REGULAR RHYTHM, +S1, +S2 - GI/Abdominal Exam GI & Abdominal Exam: Normal Bowel Sounds, Soft. absent: Distended, Tenderness - Neurological Exam Neurological exam: Alert, Oriented x3 - Skin Skin Exam: Dry, Warm Assessment and Plan - Assessment and Plan (Free Text) Assessment: 82 yo F with PMHx of IDDM, HTN, hypothyroidsm, CVA and dementia and recurrent UTI admitted due to ESBL E coli Urinary tract infection. TCU for further IV antibiotics. Plan: - continue on IV abx - ID consulted, input appreciated - continue home meds - scd, lovenox - obtain stable IV access, PICC ordered - rest of plan as ordered
--- NOTE | 2018-04-25 20:11 | CP.PCM.PN ---
Subjective - Date & Time of Evaluation Date of Evaluation: 04/23/18 Time of Evaluation: 11:00 - Subjective Subjective: patient seen and examined at bedside. no acute events overnight. no other complaints reported. PICC placed in RUE. Objective - Vital Signs/Intake and Output Vital Signs (last 24 hours): Temp Pulse Resp BP Pulse Ox 97.3 F L 68 20 146/72 96 04/25/18 20:03 04/25/18 20:03 04/25/18 20:03 04/25/18 20:03 04/25/18 20:03 - Medications Medications: Current Medications Acetaminophen/Butalbital/Caffeine (Fioricet) 1 tab PO Q8H PRN PRN Reason: Migraine headache Artificial Tears (Lacri-Lube) 1 applic OD HS [facility] Last Admin: 04/24/18 22:02 Dose: 1 applic Artificial Tears (Artificial Tears) 1 drop OS TID [facility] Last Admin: 04/25/18 17:15 Dose: 1 drop Atorvastatin Calcium (Lipitor) 40 mg PO HS [facility] Last Admin: 04/24/18 22:00 Dose: 40 mg Brimonidine Tartrate (Alphagan 0.2% Opht) 1 drop OS Q12 [facility] Last Admin: 04/25/18 09:28 Dose: 1 drop Cholecalciferol (Vitamin D) 1,000 intlu PO DAILY [facility] Last Admin: 04/25/18 09:24 Dose: 1,000 intlu Clopidogrel Bisulfate (Plavix) 75 mg PO DAILY [facility] Last Admin: 04/25/18 09:25 Dose: 75 mg Donepezil HCl (Aricept) 10 mg PO HS [facility] Last Admin: 04/24/18 22:01 Dose: 10 mg Enoxaparin Sodium (Lovenox) 40 mg SC HS [facility]; Protocol Last Admin: 04/24/18 22:13 Dose: 40 mg Famotidine (Pepcid) 20 mg PO BID [facility] Last Admin: 04/25/18 17:17 Dose: 20 mg Glipizide (Glucotrol Xl) 2.5 mg PO BRK [facility] Last Admin: 04/25/18 09:26 Dose: 2.5 mg Meropenem 500 mg/ Sodium (Chloride) 100 mls @ 100 mls/hr IVPB Q8@0500,1300,2100 [facility]; Protocol Last Admin: 04/25/18 12:22 Dose: 100 mls/hr Insulin Human Regular (Humulin R) 0 units SC ACHS [facility]; Protocol Last Admin: 04/25/18 17:16 Dose: 2 u Latanoprost (Xalatan Opht) 1 drop OS HS [facility] Last Admin: 04/24/18 22:00 Dose: 1 drop Levothyroxine Sodium (Synthroid) 75 mcg PO DAILY@0630 [facility] Last Admin: 04/25/18 06:58 Dose: 75 mcg Meclizine HCl (Antivert) 25 mg PO TID PRN PRN Reason: Dizziness Memantine (Namenda) 10 mg PO Q12 [facility] Last Admin: 04/25/18 09:23 Dose: 10 mg Metoprolol Tartrate (Lopressor) 12.5 mg PO DAILY PRN PRN Reason: SBP >139 Last Admin: 04/25/18 09:24 Dose: 12.5 mg Nystatin (Nystop Topical Powder) 1 applic TOP TID [facility] Last Admin: 04/25/18 12:21 Dose: 1 applic Potassium Chloride (K-Dur 20 Meq Er Tab) 40 meq PO BID [facility] Last Admin: 04/25/18 17:16 Dose: 40 meq Prednisolone Acetate (Pred Forte 1% Opht Susp) 1 drop OS QID [facility] Last Admin: 04/25/18 17:17 Dose: 1 drop Ramipril (Altace) 5 mg PO DAILY [facility] Last Admin: 04/25/18 09:26 Dose: 5 mg Risperidone (Risperdal Tab) 0.25 mg PO QAM [facility] Last Admin: 04/25/18 09:23 Dose: 0.25 mg Risperidone (Risperdal Tab) 0.5 mg PO [facility] Last Admin: 04/24/18 22:01 Dose: 0.5 mg Sertraline HCl (Zoloft) 50 mg PO HS [facility] Last Admin: 04/24/18 22:01 Dose: 50 mg Sitagliptin Phosphate (Januvia) 100 mg PO DAILY [facility] Last Admin: 04/25/18 09:26 Dose: 100 mg Timolol Maleate (Timoptic 0.5% Ophth Soln) 1 drop OS Q12 [facility] Last Admin: 04/25/18 09:28 Dose: 1 drop Vancomycin HCl (Vancocin (Oral/Rectal Use)) 125 mg PO Q6 [facility]; Protocol Last Admin: 04/25/18 16:00 Dose: 125 mg - Labs Labs: 04/24/18 10:45 04/24/18 12:03 PT 12.1 Seconds (9.8-13.1) 04/22/18 12:32 INR 1.1 04/22/18 12:32 - Additional Findings Additional findings: - Constitutional Appears: No Acute Distress - Head Exam Head Exam: NORMAL INSPECTION - Respiratory Exam Respiratory Exam: Clear to Auscultation Bilateral, NORMAL BREATHING PATTERN - Cardiovascular Exam Cardiovascular Exam: REGULAR RHYTHM, +S1, +S2 - GI/Abdominal Exam GI & Abdominal Exam: Normal Bowel Sounds, Soft. absent: Distended, Tenderness - Neurological Exam Neurological exam: Alert, Oriented x3 - Skin Skin Exam: Dry, Warm Assessment and Plan - Assessment and Plan (Free Text) Assessment: 82 yo F with PMHx of IDDM, HTN, hypothyroidsm, CVA and dementia and recurrent UTI admitted due to ESBL E coli Urinary tract infection. TCU for further IV antibiotics. Plan: - continue on IV abx - ID consulted, input appreciated - continue home meds - scd, lovenox - rest of plan as ordered
--- NOTE | 2018-04-25 20:12 | CP.PCM.PN ---
Subjective - Date & Time of Evaluation Date of Evaluation: 04/24/18 Time of Evaluation: 11:00 - Subjective Subjective: patient seen and examined at bedside. no acute events overnight. no other complaints reported. Objective - Vital Signs/Intake and Output Vital Signs (last 24 hours): Temp Pulse Resp BP Pulse Ox 97.3 F L 68 20 146/72 96 04/25/18 20:03 04/25/18 20:03 04/25/18 20:03 04/25/18 20:03 04/25/18 20:03 - Medications Medications: Current Medications Acetaminophen/Butalbital/Caffeine (Fioricet) 1 tab PO Q8H PRN PRN Reason: Migraine headache Artificial Tears (Lacri-Lube) 1 applic OD HS [facility] Last Admin: 04/24/18 22:02 Dose: 1 applic Artificial Tears (Artificial Tears) 1 drop OS TID [facility] Last Admin: 04/25/18 17:15 Dose: 1 drop Atorvastatin Calcium (Lipitor) 40 mg PO [facility] Last Admin: 04/24/18 22:00 Dose: 40 mg Brimonidine Tartrate (Alphagan 0.2% Opht) 1 drop OS Q12 [facility] Last Admin: 04/25/18 09:28 Dose: 1 drop Cholecalciferol (Vitamin D) 1,000 intlu PO DAILY [facility] Last Admin: 04/25/18 09:24 Dose: 1,000 intlu Clopidogrel Bisulfate (Plavix) 75 mg PO DAILY [facility] Last Admin: 04/25/18 09:25 Dose: 75 mg Donepezil HCl (Aricept) 10 mg PO [facility] Last Admin: 04/24/18 22:01 Dose: 10 mg Enoxaparin Sodium (Lovenox) 40 mg SC HS [facility]; Protocol Last Admin: 04/24/18 22:13 Dose: 40 mg Famotidine (Pepcid) 20 mg PO BID [facility] Last Admin: 04/25/18 17:17 Dose: 20 mg Glipizide (Glucotrol Xl) 2.5 mg PO BRK [facility] Last Admin: 04/25/18 09:26 Dose: 2.5 mg Meropenem 500 mg/ Sodium (Chloride) 100 mls @ 100 mls/hr IVPB Q8@0500,1300,2100 [facility]; Protocol Last Admin: 04/25/18 12:22 Dose: 100 mls/hr Insulin Human Regular (Humulin R) 0 units SC ACHS [facility]; Protocol Last Admin: 04/25/18 17:16 Dose: 2 u Latanoprost (Xalatan Opht) 1 drop OS HS [facility] Last Admin: 04/24/18 22:00 Dose: 1 drop Levothyroxine Sodium (Synthroid) 75 mcg PO DAILY@0630 [facility] Last Admin: 04/25/18 06:58 Dose: 75 mcg Meclizine HCl (Antivert) 25 mg PO TID PRN PRN Reason: Dizziness Memantine (Namenda) 10 mg PO Q12 [facility] Last Admin: 04/25/18 09:23 Dose: 10 mg Metoprolol Tartrate (Lopressor) 12.5 mg PO DAILY PRN PRN Reason: SBP >139 Last Admin: 04/25/18 09:24 Dose: 12.5 mg Nystatin (Nystop Topical Powder) 1 applic TOP TID [facility] Last Admin: 04/25/18 12:21 Dose: 1 applic Potassium Chloride (K-Dur 20 Meq Er Tab) 40 meq PO BID [facility] Last Admin: 04/25/18 17:16 Dose: 40 meq Prednisolone Acetate (Pred Forte 1% Opht Susp) 1 drop OS QID [facility] Last Admin: 04/25/18 17:17 Dose: 1 drop Ramipril (Altace) 5 mg PO DAILY [facility] Last Admin: 04/25/18 09:26 Dose: 5 mg Risperidone (Risperdal Tab) 0.25 mg PO QAM [facility] Last Admin: 04/25/18 09:23 Dose: 0.25 mg Risperidone (Risperdal Tab) 0.5 mg PO [facility] Last Admin: 04/24/18 22:01 Dose: 0.5 mg Sertraline HCl (Zoloft) 50 mg PO HS [facility] Last Admin: 04/24/18 22:01 Dose: 50 mg Sitagliptin Phosphate (Januvia) 100 mg PO DAILY [facility] Last Admin: 04/25/18 09:26 Dose: 100 mg Timolol Maleate (Timoptic 0.5% Ophth Soln) 1 drop OS Q12 [facility] Last Admin: 04/25/18 09:28 Dose: 1 drop Vancomycin HCl (Vancocin (Oral/Rectal Use)) 125 mg PO Q6 [facility]; Protocol Last Admin: 04/25/18 16:00 Dose: 125 mg - Labs Labs: 04/24/18 10:45 04/24/18 12:03 PT 12.1 Seconds (9.8-13.1) 04/22/18 12:32 INR 1.1 04/22/18 12:32 - Additional Findings Additional findings: - Constitutional Appears: No Acute Distress - Head Exam Head Exam: NORMAL INSPECTION - Respiratory Exam Respiratory Exam: Clear to Auscultation Bilateral, NORMAL BREATHING PATTERN - Cardiovascular Exam Cardiovascular Exam: REGULAR RHYTHM, +S1, +S2 - GI/Abdominal Exam GI & Abdominal Exam: Normal Bowel Sounds, Soft. absent: Distended, Tenderness - Neurological Exam Neurological exam: Alert, Oriented x3 - Skin Skin Exam: Dry, Warm Assessment and Plan - Assessment and Plan (Free Text) Assessment: 82 yo F with PMHx of IDDM, HTN, hypothyroidsm, CVA and dementia and recurrent UTI admitted due to ESBL E coli Urinary tract infection. TCU for further IV antibiotics. Plan: - continue on IV abx - ID consulted, input appreciated - continue home meds - scd, lovenox - rest of plan as ordered
--- NOTE | 2018-04-25 20:13 | CP.PCM.PN ---
Subjective - Date & Time of Evaluation Date of Evaluation: 04/25/18 Time of Evaluation: 16:00 - Subjective Subjective: patient seen and examined at bedside. no acute events overnight. no other complaints reported. Objective - Vital Signs/Intake and Output Vital Signs (last 24 hours): Temp Pulse Resp BP Pulse Ox 97.3 F L 68 20 146/72 96 04/25/18 20:03 04/25/18 20:03 04/25/18 20:03 04/25/18 20:03 04/25/18 20:03 - Medications Medications: Current Medications Acetaminophen/Butalbital/Caffeine (Fioricet) 1 tab PO Q8H PRN PRN Reason: Migraine headache Artificial Tears (Lacri-Lube) 1 applic OD HS [facility] Last Admin: 04/24/18 22:02 Dose: 1 applic Artificial Tears (Artificial Tears) 1 drop OS TID [facility] Last Admin: 04/25/18 17:15 Dose: 1 drop Atorvastatin Calcium (Lipitor) 40 mg PO [facility] Last Admin: 04/24/18 22:00 Dose: 40 mg Brimonidine Tartrate (Alphagan 0.2% Opht) 1 drop OS Q12 [facility] Last Admin: 04/25/18 09:28 Dose: 1 drop Cholecalciferol (Vitamin D) 1,000 intlu PO DAILY [facility] Last Admin: 04/25/18 09:24 Dose: 1,000 intlu Clopidogrel Bisulfate (Plavix) 75 mg PO DAILY [facility] Last Admin: 04/25/18 09:25 Dose: 75 mg Donepezil HCl (Aricept) 10 mg PO [facility] Last Admin: 04/24/18 22:01 Dose: 10 mg Enoxaparin Sodium (Lovenox) 40 mg SC HS [facility]; Protocol Last Admin: 04/24/18 22:13 Dose: 40 mg Famotidine (Pepcid) 20 mg PO BID [facility] Last Admin: 04/25/18 17:17 Dose: 20 mg Glipizide (Glucotrol Xl) 2.5 mg PO BRK [facility] Last Admin: 04/25/18 09:26 Dose: 2.5 mg Meropenem 500 mg/ Sodium (Chloride) 100 mls @ 100 mls/hr IVPB Q8@0500,1300,2100 [facility]; Protocol Last Admin: 04/25/18 12:22 Dose: 100 mls/hr Insulin Human Regular (Humulin R) 0 units SC ACHS [facility]; Protocol Last Admin: 04/25/18 17:16 Dose: 2 u Latanoprost (Xalatan Opht) 1 drop OS HS [facility] Last Admin: 04/24/18 22:00 Dose: 1 drop Levothyroxine Sodium (Synthroid) 75 mcg PO DAILY@0630 [facility] Last Admin: 04/25/18 06:58 Dose: 75 mcg Meclizine HCl (Antivert) 25 mg PO TID PRN PRN Reason: Dizziness Memantine (Namenda) 10 mg PO Q12 [facility] Last Admin: 04/25/18 09:23 Dose: 10 mg Metoprolol Tartrate (Lopressor) 12.5 mg PO DAILY PRN PRN Reason: SBP >139 Last Admin: 04/25/18 09:24 Dose: 12.5 mg Nystatin (Nystop Topical Powder) 1 applic TOP TID [facility] Last Admin: 04/25/18 12:21 Dose: 1 applic Potassium Chloride (K-Dur 20 Meq Er Tab) 40 meq PO BID [facility] Last Admin: 04/25/18 17:16 Dose: 40 meq Prednisolone Acetate (Pred Forte 1% Opht Susp) 1 drop OS QID [facility] Last Admin: 04/25/18 17:17 Dose: 1 drop Ramipril (Altace) 5 mg PO DAILY [facility] Last Admin: 04/25/18 09:26 Dose: 5 mg Risperidone (Risperdal Tab) 0.25 mg PO QAM [facility] Last Admin: 04/25/18 09:23 Dose: 0.25 mg Risperidone (Risperdal Tab) 0.5 mg PO [facility] Last Admin: 04/24/18 22:01 Dose: 0.5 mg Sertraline HCl (Zoloft) 50 mg PO HS [facility] Last Admin: 04/24/18 22:01 Dose: 50 mg Sitagliptin Phosphate (Januvia) 100 mg PO DAILY [facility] Last Admin: 04/25/18 09:26 Dose: 100 mg Timolol Maleate (Timoptic 0.5% Ophth Soln) 1 drop OS Q12 [facility] Last Admin: 04/25/18 09:28 Dose: 1 drop Vancomycin HCl (Vancocin (Oral/Rectal Use)) 125 mg PO Q6 [facility]; Protocol Last Admin: 04/25/18 16:00 Dose: 125 mg - Labs Labs: 04/24/18 10:45 04/24/18 12:03 PT 12.1 Seconds (9.8-13.1) 04/22/18 12:32 INR 1.1 04/22/18 12:32 - Additional Findings Additional findings: - Constitutional Appears: No Acute Distress - Head Exam Head Exam: NORMAL INSPECTION - Respiratory Exam Respiratory Exam: Clear to Auscultation Bilateral, NORMAL BREATHING PATTERN - Cardiovascular Exam Cardiovascular Exam: REGULAR RHYTHM, +S1, +S2 - GI/Abdominal Exam GI & Abdominal Exam: Normal Bowel Sounds, Soft. absent: Distended, Tenderness - Neurological Exam Neurological exam: Alert, Oriented x3 - Skin Skin Exam: Dry, Warm Assessment and Plan - Assessment and Plan (Free Text) Assessment: 82 yo F with PMHx of IDDM, HTN, hypothyroidsm, CVA and dementia and recurrent UTI admitted due to ESBL E coli Urinary tract infection. TCU for further IV antibiotics. Plan: - continue on IV abx - ID consulted, input appreciated - Urology consulted, input appreciated - continue home meds - scd, lovenox - rest of plan as ordered
[2018-04-25] MEDS: Mineral Oil/White Petrolatum Ophth Oint OD SCH (21:00)
[2018-04-25] MEDS: Latanoprost 0.005% Opht SOUTION OS SCH (21:00)
[2018-04-25] MEDS: Enoxaparin 40 mg Syringe SC SCH (21:02)
[2018-04-26] MEDS: Vancomycin 500 mg (Oral/Rectal USE) PO SCH ×4 (03:12→21:15)
[2018-04-26] MEDS: Meropenem 500 MG in Sodium Chloride 0.9% 100 ML IVPB SCH ×3 (04:26→21:13)
[2018-04-26] MEDS: Levothyroxine 75 MCG TAB PO SCH (06:54)
[2018-04-26] MEDS: Insulin Regular 100 units/ml SC SCH ×4 (06:55→21:11)
[2018-04-26] MEDS: PrednisoLONE 1% OPTH SUSP OS SCH ×4 (08:36→22:31)
[2018-04-26] MEDS: Cholecalciferol 1,000 INTLU TAB PO SCH (08:37)
[2018-04-26] MEDS: GlipiZIDE 2.5 mg SR Tab PO SCH (08:37)
[2018-04-26] MEDS: Brimonidine 0.2% 50 DROP/5 ML BOTTLE OS SCH ×2 (08:40→21:11)
[2018-04-26] MEDS: Artificial Tears Opht Soln OS SCH ×3 (08:40→17:03)
[2018-04-26] MEDS: Potassium Chloride 20 mEq ER Tab PO SCH ×2 (08:41→17:04)
--- NOTE | 2018-04-26 11:38 | CP.PCM.PN ---
Subjective - Date & Time of Evaluation Date of Evaluation: 04/26/18 Time of Evaluation: 08:00 - Subjective Subjective: improving on IV rx Objective - Vital Signs/Intake and Output Vital Signs (last 24 hours): Temp Pulse Resp BP Pulse Ox 98.1 F 68 20 148/59 L 94 L 04/26/18 08:55 04/26/18 08:55 04/26/18 08:55 04/26/18 08:55 04/26/18 08:55 - Medications Medications: Current Medications Acetaminophen/Butalbital/Caffeine (Fioricet) 1 tab PO Q8H PRN PRN Reason: Migraine headache Artificial Tears (Lacri-Lube) 1 applic OD HS [facility] Last Admin: 04/25/18 21:00 Dose: 1 applic Artificial Tears (Artificial Tears) 1 drop OS TID [facility] Last Admin: 04/26/18 08:40 Dose: 1 drop Atorvastatin Calcium (Lipitor) 40 mg PO HS [facility] Last Admin: 04/25/18 21:01 Dose: 40 mg Brimonidine Tartrate (Alphagan 0.2% Opht) 1 drop OS Q12 [facility] Last Admin: 04/26/18 08:40 Dose: 1 drop Cholecalciferol (Vitamin D) 1,000 intlu PO DAILY [facility] Last Admin: 04/26/18 08:37 Dose: 1,000 intlu Clopidogrel Bisulfate (Plavix) 75 mg PO DAILY [facility] Last Admin: 04/26/18 08:36 Dose: 75 mg Donepezil HCl (Aricept) 10 mg PO HS [facility] Last Admin: 04/25/18 21:01 Dose: 10 mg Enoxaparin Sodium (Lovenox) 40 mg SC [facility]; Protocol Last Admin: 04/25/18 21:02 Dose: 40 mg Famotidine (Pepcid) 20 mg PO BID [facility] Last Admin: 04/26/18 08:36 Dose: 20 mg Glipizide (Glucotrol Xl) 2.5 mg PO BRK [facility] Last Admin: 04/26/18 08:37 Dose: 2.5 mg Meropenem 500 mg/ Sodium (Chloride) 100 mls @ 100 mls/hr IVPB Q8@0500,1300,2100 [facility]; Protocol Last Admin: 04/26/18 04:26 Dose: 100 mls/hr Insulin Human Regular (Humulin R) 0 units SC [facility]; Protocol Last Admin: 04/26/18 06:55 Dose: 3 u Latanoprost (Xalatan Opht) 1 drop OS HS [facility] Last Admin: 04/25/18 21:00 Dose: 1 drop Levothyroxine Sodium (Synthroid) 75 mcg PO DAILY@0630 [facility] Last Admin: 04/26/18 06:54 Dose: 75 mcg Meclizine HCl (Antivert) 25 mg PO TID PRN PRN Reason: Dizziness Memantine (Namenda) 10 mg PO Q12 [facility] Last Admin: 04/26/18 08:36 Dose: 10 mg Metoprolol Tartrate (Lopressor) 12.5 mg PO DAILY PRN PRN Reason: SBP >139 Last Admin: 04/26/18 08:38 Dose: 12.5 mg Nystatin (Nystop Topical Powder) 1 applic TOP TID [facility] Last Admin: 04/25/18 12:21 Dose: 1 applic Potassium Chloride (K-Dur 20 Meq Er Tab) 40 meq PO BID [facility] Last Admin: 04/26/18 08:41 Dose: 40 meq Prednisolone Acetate (Pred Forte 1% Opht Susp) 1 drop OS QID [facility] Last Admin: 04/26/18 08:36 Dose: 1 drop Ramipril (Altace) 5 mg PO DAILY [facility] Last Admin: 04/26/18 08:39 Dose: 5 mg Risperidone (Risperdal Tab) 0.25 mg PO QAM [facility] Last Admin: 04/26/18 08:39 Dose: 0.25 mg Risperidone (Risperdal Tab) 0.5 mg PO [facility] Last Admin: 04/25/18 21:01 Dose: 0.5 mg Sertraline HCl (Zoloft) 50 mg PO [facility] Last Admin: 04/25/18 21:01 Dose: 50 mg Sitagliptin Phosphate (Januvia) 100 mg PO DAILY [facility] Last Admin: 04/26/18 08:37 Dose: 100 mg Timolol Maleate (Timoptic 0.5% Ophth Soln) 1 drop OS Q12 [facility] Last Admin: 04/26/18 08:40 Dose: 1 drop Vancomycin HCl (Vancocin (Oral/Rectal Use)) 125 mg PO Q6 [facility]; Protocol Last Admin: 04/26/18 03:12 Dose: 125 mg - Labs Labs: 04/24/18 10:45 04/24/18 12:03 PT 12.1 Seconds (9.8-13.1) 04/22/18 12:32 INR 1.1 04/22/18 12:32 - Constitutional Appears: Non-toxic, Chronically Ill - Head Exam Head Exam: NORMOCEPHALIC - Eye Exam Eye Exam: absent: Scleral icterus - ENT Exam ENT Exam: Mucous Membranes Dry - Neck Exam Neck Exam: absent: Lymphadenopathy - Respiratory Exam Respiratory Exam: Decreased Breath Sounds - Cardiovascular Exam Cardiovascular Exam: REGULAR RHYTHM - GI/Abdominal Exam GI & Abdominal Exam: Distended, Soft - Rectal Exam Rectal Exam: Deferred - Exam Exam: NORMAL INSPECTION - Extremities Exam Extremities Exam: absent: Pedal Edema - Back Exam Back Exam: absent: CVA tenderness (L), CVA tenderness (R) Assessment and Plan (1) Altered mental status Status: Acute (2) Diabetes mellitus type 2 in obese Status: Acute (3) ESBL (extended spectrum beta-lactamase) producing bacteria infection Status: Acute
--- NOTE | 2018-04-26 18:46 | CP.PCM.PN ---
Subjective - Date & Time of Evaluation Date of Evaluation: 04/26/18 Time of Evaluation: 11:00 - Subjective Subjective: patient seen and examined at bedside. no acute events overnight. no other complaints reported. spoke with family at bedside. Objective - Vital Signs/Intake and Output Vital Signs (last 24 hours): Temp Pulse Resp BP Pulse Ox 97.3 F L 62 20 120/55 L 97 04/26/18 15:40 04/26/18 15:40 04/26/18 15:40 04/26/18 15:40 04/26/18 15:40 - Medications Medications: Current Medications Acetaminophen/Butalbital/Caffeine (Fioricet) 1 tab PO Q8H PRN PRN Reason: Migraine headache Artificial Tears (Lacri-Lube) 1 applic OD HS [facility] Last Admin: 04/25/18 21:00 Dose: 1 applic Artificial Tears (Artificial Tears) 1 drop OS TID [facility] Last Admin: 04/26/18 17:03 Dose: 1 drop Atorvastatin Calcium (Lipitor) 40 mg PO HS [facility] Last Admin: 04/25/18 21:01 Dose: 40 mg Brimonidine Tartrate (Alphagan 0.2% Opht) 1 drop OS Q12 [facility] Last Admin: 04/26/18 08:40 Dose: 1 drop Cholecalciferol (Vitamin D) 1,000 intlu PO DAILY [facility] Last Admin: 04/26/18 08:37 Dose: 1,000 intlu Clopidogrel Bisulfate (Plavix) 75 mg PO DAILY [facility] Last Admin: 04/26/18 08:36 Dose: 75 mg Donepezil HCl (Aricept) 10 mg PO HS [facility] Last Admin: 04/25/18 21:01 Dose: 10 mg Enoxaparin Sodium (Lovenox) 40 mg SC HS [facility]; Protocol Last Admin: 04/25/18 21:02 Dose: 40 mg Famotidine (Pepcid) 20 mg PO BID [facility] Last Admin: 04/26/18 17:05 Dose: 20 mg Glipizide (Glucotrol Xl) 2.5 mg PO BRK [facility] Last Admin: 04/26/18 08:37 Dose: 2.5 mg Meropenem 500 mg/ Sodium (Chloride) 100 mls @ 100 mls/hr IVPB Q8@0500,1300,2100 [facility]; Protocol Last Admin: 04/26/18 12:10 Dose: 100 mls/hr Insulin Human Regular (Humulin R) 0 units SC ACHS [facility]; Protocol Last Admin: 04/26/18 17:04 Dose: 2 u Latanoprost (Xalatan Opht) 1 drop OS HS [facility] Last Admin: 04/25/18 21:00 Dose: 1 drop Levothyroxine Sodium (Synthroid) 75 mcg PO DAILY@0630 [facility] Last Admin: 04/26/18 06:54 Dose: 75 mcg Meclizine HCl (Antivert) 25 mg PO TID PRN PRN Reason: Dizziness Memantine (Namenda) 10 mg PO Q12 [facility] Last Admin: 04/26/18 08:36 Dose: 10 mg Metoprolol Tartrate (Lopressor) 12.5 mg PO DAILY PRN PRN Reason: SBP >139 Last Admin: 04/26/18 08:38 Dose: 12.5 mg Nystatin (Nystop Topical Powder) 1 applic TOP TID [facility] Last Admin: 04/26/18 17:06 Dose: 1 applic Potassium Chloride (K-Dur 20 Meq Er Tab) 40 meq PO BID [facility] Last Admin: 04/26/18 17:04 Dose: 40 meq Prednisolone Acetate (Pred Forte 1% Opht Susp) 1 drop OS QID [facility] Last Admin: 04/26/18 17:03 Dose: 1 drop Ramipril (Altace) 5 mg PO DAILY [facility] Last Admin: 04/26/18 08:39 Dose: 5 mg Risperidone (Risperdal Tab) 0.25 mg PO QAM [facility] Last Admin: 04/26/18 08:39 Dose: 0.25 mg Risperidone (Risperdal Tab) 0.5 mg PO HS [facility] Last Admin: 04/25/18 21:01 Dose: 0.5 mg Sertraline HCl (Zoloft) 50 mg PO HS [facility] Last Admin: 04/25/18 21:01 Dose: 50 mg Sitagliptin Phosphate (Januvia) 100 mg PO DAILY [facility] Last Admin: 04/26/18 08:37 Dose: 100 mg Timolol Maleate (Timoptic 0.5% Ophth Soln) 1 drop OS Q12 [facility] Last Admin: 04/26/18 08:40 Dose: 1 drop Vancomycin HCl (Vancocin (Oral/Rectal Use)) 125 mg PO Q6 [facility]; Protocol Last Admin: 04/26/18 16:00 Dose: 125 mg - Labs Labs: 04/24/18 10:45 04/24/18 12:03 PT 12.1 Seconds (9.8-13.1) 04/22/18 12:32 INR 1.1 04/22/18 12:32 - Additional Findings Additional findings: - Constitutional Appears: No Acute Distress - Head Exam Head Exam: NORMAL INSPECTION - Respiratory Exam Respiratory Exam: Clear to Auscultation Bilateral, NORMAL BREATHING PATTERN - Cardiovascular Exam Cardiovascular Exam: REGULAR RHYTHM, +S1, +S2 - GI/Abdominal Exam GI & Abdominal Exam: Normal Bowel Sounds, Soft. absent: Distended, Tenderness - Neurological Exam Neurological exam: Alert, Oriented x3 - Skin Skin Exam: Dry, Warm Assessment and Plan - Assessment and Plan (Free Text) Assessment: 82 yo F with PMHx of IDDM, HTN, hypothyroidsm, CVA and dementia and recurrent UTI admitted due to ESBL E coli Urinary tract infection. TCU for further IV antibiotics. Plan: - continue on IV abx - ID consulted, input appreciated - Urology consulted, input appreciated - continue home meds - scd, lovenox - rest of plan as ordered
[2018-04-26] MEDS: Enoxaparin 40 mg Syringe SC SCH (21:12)
[2018-04-26] MEDS: Mineral Oil/White Petrolatum Ophth Oint OD SCH (21:32)
[2018-04-26] MEDS: Latanoprost 0.005% Opht SOUTION OS SCH (23:00)
[2018-04-27] MEDS: Vancomycin 500 mg (Oral/Rectal USE) PO SCH ×4 (04:07→21:32)
[2018-04-27] MEDS: Meropenem 500 MG in Sodium Chloride 0.9% 100 ML IVPB SCH ×3 (04:44→21:30)
[2018-04-27] MEDS: Levothyroxine 75 MCG TAB PO SCH (06:48)
[2018-04-27] MEDS: Insulin Regular 100 units/ml SC SCH ×4 (06:48→22:00)
[2018-04-27] MEDS: PrednisoLONE 1% OPTH SUSP OS SCH ×4 (08:00→23:24)
[2018-04-27] MEDS: Artificial Tears Opht Soln OS SCH ×3 (08:10→16:40)
[2018-04-27 08:13] VITALS: RESP 20
[2018-04-27] MEDS: Brimonidine 0.2% 50 DROP/5 ML BOTTLE OS SCH ×2 (08:34→21:27)
[2018-04-27] MEDS: Cholecalciferol 1,000 INTLU TAB PO SCH (08:35)
[2018-04-27] MEDS: Potassium Chloride 20 mEq ER Tab PO SCH ×2 (08:36→17:15)
[2018-04-27] MEDS: GlipiZIDE 2.5 mg SR Tab PO SCH (08:37)
--- NOTE | 2018-04-27 19:02 | CP.PCM.PN ---
Subjective - Date & Time of Evaluation Date of Evaluation: 04/27/18 Time of Evaluation: 10:00 - Subjective Subjective: patient seen and examined at bedside. no acute events overnight. no other complaints reported. urology saw patient this am. Objective - Vital Signs/Intake and Output Vital Signs (last 24 hours): Temp Pulse Resp BP Pulse Ox 97.0 F L 61 20 134/53 L 100 04/27/18 16:44 04/27/18 16:44 04/27/18 16:44 04/27/18 16:44 04/27/18 16:44 - Medications Medications: Current Medications Acetaminophen/Butalbital/Caffeine (Fioricet) 1 tab PO Q8H PRN PRN Reason: Migraine headache Artificial Tears (Lacri-Lube) 1 applic OD HS [facility] Last Admin: 04/26/18 21:32 Dose: 1 applic Artificial Tears (Artificial Tears) 1 drop OS TID [facility] Last Admin: 04/27/18 16:40 Dose: 1 drop Atorvastatin Calcium (Lipitor) 40 mg PO HS [facility] Last Admin: 04/26/18 21:12 Dose: 40 mg Brimonidine Tartrate (Alphagan 0.2% Opht) 1 drop OS Q12 [facility] Last Admin: 04/27/18 08:34 Dose: 1 drop Cholecalciferol (Vitamin D) 1,000 intlu PO DAILY [facility] Last Admin: 04/27/18 08:35 Dose: 1,000 intlu Clopidogrel Bisulfate (Plavix) 75 mg PO DAILY [facility] Last Admin: 04/27/18 08:37 Dose: 75 mg Donepezil HCl (Aricept) 10 mg PO HS [facility] Last Admin: 04/26/18 21:11 Dose: 10 mg Enoxaparin Sodium (Lovenox) 40 mg SC HS [facility]; Protocol Last Admin: 04/26/18 21:12 Dose: 40 mg Famotidine (Pepcid) 20 mg PO BID [facility] Last Admin: 04/27/18 17:15 Dose: 20 mg Glipizide (Glucotrol Xl) 2.5 mg PO BRK [facility] Last Admin: 04/27/18 08:37 Dose: 2.5 mg Meropenem 500 mg/ Sodium (Chloride) 100 mls @ 100 mls/hr IVPB Q8@0500,1300,2100 [facility]; Protocol Last Admin: 04/27/18 12:11 Dose: 100 mls/hr Insulin Human Regular (Humulin R) 0 units SC [facility]; Protocol Last Admin: 04/27/18 17:16 Dose: 3 u Latanoprost (Xalatan Opht) 1 drop OS HS [facility] Last Admin: 04/26/18 23:00 Dose: 1 drop Levothyroxine Sodium (Synthroid) 75 mcg PO DAILY@0630 [facility] Last Admin: 04/27/18 06:48 Dose: 75 mcg Meclizine HCl (Antivert) 25 mg PO TID PRN PRN Reason: Dizziness Memantine (Namenda) 10 mg PO Q12 [facility] Last Admin: 04/27/18 08:35 Dose: 10 mg Metoprolol Tartrate (Lopressor) 12.5 mg PO DAILY PRN PRN Reason: SBP >139 Last Admin: 04/27/18 08:34 Dose: 12.5 mg Nystatin (Nystop Topical Powder) 1 applic TOP TID [facility] Potassium Chloride (K-Dur 20 Meq Er Tab) 40 meq PO BID [facility] Last Admin: 04/27/18 17:15 Dose: 40 meq Prednisolone Acetate (Pred Forte 1% Opht Susp) 1 drop OS QID [facility] Last Admin: 04/27/18 17:00 Dose: 1 drop Ramipril (Altace) 5 mg PO DAILY [facility] Last Admin: 04/27/18 08:38 Dose: 5 mg Risperidone (Risperdal Tab) 0.25 mg PO QAM [facility] Last Admin: 04/27/18 08:38 Dose: 0.25 mg Risperidone (Risperdal Tab) 0.5 mg PO [facility] Last Admin: 04/26/18 21:14 Dose: 0.5 mg Sertraline HCl (Zoloft) 50 mg PO [facility] Last Admin: 04/26/18 21:16 Dose: 50 mg Sitagliptin Phosphate (Januvia) 100 mg PO DAILY [facility] Last Admin: 04/27/18 08:38 Dose: 100 mg Timolol Maleate (Timoptic 0.5% Ophth Soln) 1 drop OS Q12 [facility] Last Admin: 04/27/18 08:20 Dose: 1 drop Vancomycin HCl (Vancocin (Oral/Rectal Use)) 125 mg PO Q6 [facility]; Protocol Last Admin: 04/27/18 16:40 Dose: 125 mg - Labs Labs: 04/24/18 10:45 11/02/18 12:03 PT 12.1 Seconds (9.8-13.1) 04/22/18 12:32 INR 1.1 04/22/18 12:32 - Additional Findings Additional findings: - Constitutional Appears: No Acute Distress - Head Exam Head Exam: NORMAL INSPECTION - Respiratory Exam Respiratory Exam: Clear to Auscultation Bilateral, NORMAL BREATHING PATTERN - Cardiovascular Exam Cardiovascular Exam: REGULAR RHYTHM, +S1, +S2 - GI/Abdominal Exam GI & Abdominal Exam: Normal Bowel Sounds, Soft. absent: Distended, Tenderness - Neurological Exam Neurological exam: Alert, Oriented x3 - Skin Skin Exam: Dry, Warm Assessment and Plan - Assessment and Plan (Free Text) Assessment: 82 yo F with PMHx of IDDM, HTN, hypothyroidsm, CVA and dementia and recurrent UTI admitted due to ESBL E coli Urinary tract infection. TCU for further IV antibiotics. Plan: - continue on IV abx - ID consulted, input appreciated - Urology consulted, recommends CT abd/pelvis w/o contrast - continue home meds - scd, lovenox - rest of plan as ordered
[2018-04-27 19:46] VITALS: O2SAT 96
[2018-04-27] MEDS: Enoxaparin 40 mg Syringe SC SCH (21:29)
--- NOTE | 2018-04-27 22:34 | CON ---
DATE: 04/27/2018 COMPREHENSIVE UROLOGY CONSULTATION TIME OF CONSULTATION: Roughly 10:25 a.m. BRIEF HISTORY: The patient is an 82-year-old female with a more than 2-year history of recurrent intermittent UTIs, who now has E. coli ESBL and is being treated with meropenem so far for at least 8 days. The patient also had multiple episodes of acute urinary retention. She was hospitalized in January for sepsis and urinary retention. She also has a history of a pancreatic mass, and no treatment has been recommended for this patient. Her Solis catheter has been removed and she is currently voiding salomón urine well without complaints. She currently has no dysuria, gross hematuria, renal colic or abdominal pain. She has no prior history of any kidney disease or kidney stones. No history of cancer. PAST MEDICAL HISTORY: Positive for diabetes mellitus, hypertension, hyperlipidemia and thyroid disease. PAST SURGICAL HISTORY: Positive for removal of a left breast cyst. She has had a vaginal pessary for more than 17 years, which has been removed recently. SOCIAL HISTORY: She is a nonsmoker. No history of any alcohol use. ALLERGIES: CT DYE, METFORMIN (GLUCOPHAGE), SULFA, ASPIRIN AND CIPRO. PHYSICAL EXAMINATION: ABDOMEN: Today, her abdomen is soft, nondistended and nontender. No CVA tenderness. No suprapubic tenderness. LABORATORY?RADIOLOGY DATA: Her laboratory evaluation on 04/24/2018 showed a CBC with a WBC count of 6.4, hemoglobin of 10.1 and hematocrit of 30.8 with a platelet count of 299,000 indicating a moderate anemia. Her chem profile on 04/24/2018 showed a sodium of 136, potassium 4.7, chloride 100, CO2 of 26, BUN and creatinine of 15 and 0.7 respectively with a GFR of greater than 60. Random glucose was 244 and 278. Hemoglobin A1c was 10.4. Lactic acid was 1.5. Calcium 9.2. LDH was 298. Phosphorus 2.4, AST 26, ALT 18, alk phosphatase was 65. Vitamin D 25-hydroxy was 23.5. Her lipid panel showed a triglyceride level of 151, cholesterol 154, LDL 80 and HDL 31. Lipase was 60. TSH was 2.98. Abdominopelvic CT done on 06/10/2017 without p.o. or IV contrast showed possible left lower lobe pneumonia with trace pleural thickening or atelectasis seen along the lateral right upper lobe pleura incidentally. Liver was unremarkable. Gallbladder and bile ducts were unremarkable. Pancreas was unremarkable. No gross lesion or ductal dilatation indicating no evidence of a pancreatic mass on 06/10/2017. Spleen was unremarkable. Adrenal was unremarkable. No mass. Kidneys and ureters showed no definite obstructive uropathy or definitive intrarenal urolithiasis evident. Ureters were normal in caliber throughout and the urinary bladder was decompressed. Bowel showed no acute diverticulitis pattern evident. Appendix was unremarkable. Peritoneum was unremarkable. No free fluid, no free air. Bladder unremarkable. A pessary was again noted within the vaginal vault, no suspicious adnexal findings. Gallbladder was distended, but otherwise unremarkable. No radiodense chololithiasis, mural thickening or pericholecystic fluid collection. Liquified fecal material was seen throughout the majority of the colon with the exception of the distal rectosigmoid with moderate rectal fecal impaction identified. Left lower lobe infiltrate over atelectasis. DIAGNOSTIC IMPRESSION: Recurrent urinary tract infection, most recent urinary tract infection Escherichia coli extended-spectrum beta-lactamase, sensitive to Merrem, and the patient is currently being treated with Merrem. PLAN: To just continue the patient on her IV antibiotic regimen for treatment of the ESBL E. coli and make sure that the patient is voiding well and emptying her bladder and does not have any constipation which could affect her voiding pattern. Edd Resendiz MD MTDD
[2018-04-27] MEDS: Mineral Oil/White Petrolatum Ophth Oint OD SCH (23:01)
[2018-04-27] MEDS: Latanoprost 0.005% Opht SOUTION OS SCH (23:44)
[2018-04-28] MEDS: Vancomycin 500 mg (Oral/Rectal USE) PO SCH ×3 (03:42→17:02)
[2018-04-28] MEDS: Meropenem 500 MG in Sodium Chloride 0.9% 100 ML IVPB SCH ×2 (05:31→12:24)
[2018-04-28] MEDS: Levothyroxine 75 MCG TAB PO SCH (05:32)
[2018-04-28] MEDS: Insulin Regular 100 units/ml SC SCH ×3 (06:54→17:00)
[2018-04-28] MEDS: Potassium Chloride 20 mEq ER Tab PO SCH ×2 (09:24→17:00)
[2018-04-28] MEDS: Artificial Tears Opht Soln OS SCH ×3 (09:27→16:59)
[2018-04-28] MEDS: Brimonidine 0.2% 50 DROP/5 ML BOTTLE OS SCH (09:27)
[2018-04-28] MEDS: PrednisoLONE 1% OPTH SUSP OS SCH ×2 (09:27→12:25)
[2018-04-28] MEDS: GlipiZIDE 2.5 mg SR Tab PO SCH (09:29)
[2018-04-28] MEDS: Cholecalciferol 1,000 INTLU TAB PO SCH (09:32)
[2018-04-28 16:53] VITALS: BP 134/60; PULSE 61; TEMP 97.9
--- NOTE | 2018-04-28 17:38 | PN ---
DATE: 04/28/2018 SUBJECTIVE: The patient seen and examined. Interim events noted. The patient seen for Dr. Henderson and he is away. Chart reviewed. The patient remains in Transitional Care Unit. The patient is sleepy, arousable. communicative. Denies any specific complaint. No urinary symptoms. No specific issue reported by nursing staff. The patient is discharge today. PHYSICAL EXAMINATION: GENERAL: The patient is in no acute distress. VITAL SIGNS: Stable. Heart: S1 and S2 normal and regular. Lungs: Good bilateral air exchange. ABDOMEN: Soft, nontender. EXTREMITIES: No edema, no calf swelling or tenderness. No acute ischemia. 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 LABORATORY DATA: The available diagnostic data reviewed. ASSESSMENT AND PLAN: Overall, the patient's general medical condition is stable. Plan as ordered. Abdi Ferraro MD
== END 2018-04-28 18:10 | disposition home or self-care (01) | DRG 690 ==
LOC: H.TCU 16:19
PROVIDERS: ADMIT Family Medicine; ATTEND Family Medicine
DX: N39.0 Urinary tract infection, site not specified (principal); Z16.12 Extended spectrum beta lactamase (ESBL) resistance; B96.20 Unspecified Escherichia coli [E. coli] as the cause of diseases classified elsewhere; E03.9 Hypothyroidism, unspecified; E11.9 Type 2 diabetes mellitus without complications; Z79.4 Long term (current) use of insulin; E66.9 Obesity, unspecified; Z88.2 Allergy status to sulfonamides; Z88.6 Allergy status to analgesic agent; Z88.3 Allergy status to other anti-infective agents; Z91.041 Radiographic dye allergy status; E78.5 Hyperlipidemia, unspecified; G43.909 Migraine, unspecified, not intractable, without status migrainosus; E78.00 Pure hypercholesterolemia, unspecified; F32.9 Major depressive disorder, single episode, unspecified; H40.9 Unspecified glaucoma; G30.9 Alzheimer's disease, unspecified; F02.80 Dementia in other diseases classified elsewhere, unspecified severity, without behavioral disturbance, psychotic disturbance, mood disturbance, and anxiety; I11.0 Hypertensive heart disease with heart failure; I50.9 Heart failure, unspecified; I69.398 Other sequelae of cerebral infarction; H54.7 Unspecified visual loss

== ENCOUNTER 2018-04-22 13:14 | Day surgery (SDC) | payer MEDICARE ==
[2018-04-22 13:22] VITALS: RESP 18
[2018-04-22 13:45] VITALS: BMI 22.6
[2018-04-22] MEDS ORDERED: Lidocaine 1% Inj (20ml) ONE (14:12)
--- NOTE | 2018-04-22 14:33 | CP.SDSHP ---
Same Day Surgery H & P - History Proposed Procedure: PICC Pre-Op Diagnosis: Poor venous access - Allergies Allergies: Allergies aspirin Allergy (Verified 04/20/18 16:18) NAUSEA ciprofloxacin Allergy (Verified 04/20/18 16:18) REDNESS Sulfa (Sulfonamide Antibiotics) Allergy (Verified 04/20/18 16:18) RASH Iodinated Contrast- Oral and IV Dye Adverse Reaction (Verified 04/20/18 16:18) VOMITING metformin Adverse Reaction (Verified 04/20/18 16:18) DIARRHEA - Physical Exam Vital Signs: Vital Signs 04/22/18 04/22/18 04/22/18 13:21 13:28 14:15 Temperature 97.4 F L 97.8 F Pulse Rate 69 69 67 Respiratory 18 18 Rate Blood Pressure 136/75 135/73 O2 Sat by Pulse 97 Oximetry - Impression Impression: Pt with poor venous access requiring picc for IV abx. Plan PICC placement. Pt. Evaluated Today:Candidate for Anesthesia & Procedure: No Short Stay Discharge - Short Stay Discharge Admitting Diagnosis/Reason for Visit: POOR IV ACCESS/E11.9/E03.9/N39.0 Disposition: HOME/ ROUTINE
--- NOTE | 2018-04-22 14:35 | PCM.SURG1 ---
Surgeon's Initial Post Op Note - Surgeon's Notes Surgeon: Marques Haas MD [employer]: NONE Type of Anesthesia: Local Pre-Operative Diagnosis: Poor venous access Operative Findings: US showed a patent right basilic vein. Post-Operative Diagnosis: Poor venous access Operation Performed: Single lumen picc placement right arm, 37 CM. Tip is in the SVC. Specimen/Specimens Removed: NOne Estimated Blood Loss: EBL {In ML}: 2 Blood Products Given: N/A Drains Used: No Drains Post-Op Condition: Fair Date of Surgery/Procedure: 04/22/18 Time of Surgery/Procedure: 14:30
--- NOTE | 2018-04-22 14:46 | VASCULAR ---
PROCEDURE: Date of procedure: 04/22/2018 Procedure: 1. Placement of a right arm PICC with ultrasound and fluoroscopic guidance, CPT 77086 2. PICC tip confirmation with spot radiograph and is in the superior vena cava Medications: 1 percent lidocaine Total Fluoro time: 5.1 Seconds Radiation: 0.52 MGy EBL: 2 cc HISTORY: Infection requiring long-term IV antibiotics TECHNIQUE: Following informed consent and procedure time-out, the patient was placed supine on the interventional table and the right arm prepped and draped in the usual sterile fashion. Ultrasound showed a patent and compressible right basilic vein. After the skin was anesthetized with lidocaine, the basilic vein was accessed with micro micropuncture technique using ultrasound guidance. A guidewire was then advanced under fluoroscopic guidance into the superior vena cava. An image documenting ultrasound guidance for vascular access was permanently saved. The length of the single-lumen 4 Filipino PICC was trimmed to 37 centimeters and advanced through a peel-away sheath. The PICC was position with tip of PICC confirm a spot radiograph the superior vena cava. The PICC was secured to the patient's skin. The PICC was flushed. A biopatch and sterile dressing was applied. IMPRESSION: Placement of a single-lumen 4 Filipino PICC trimmed to 37 centimeters via right basilic vein. The tip of the PICC is confirmed with spot radiograph and is in the superior vena cava.
[2018-04-22 15:25] VITALS: BP 143/74; PULSE 64; TEMP 97.7; O2SAT 99
== END 2018-04-22 15:30 | disposition still patient (30) ==
LOC: H.OPSURG 13:14
PROVIDERS: ATTEND Family Medicine
DX: N39.0 Urinary tract infection, site not specified (principal); E03.9 Hypothyroidism, unspecified; E11.9 Type 2 diabetes mellitus without complications
CPT/HCPCS: 36569; 76937; 77001; A4310; C1751

== ENCOUNTER 2018-06-22 18:18 | Inpatient (IN) | payer MEDICARE ==
[2018-06-22 18:19] VITALS: BMI 22.6
[2018-06-22] MEDS ORDERED: Sodium Chloride 0.9% 500 ML IV STA ×2 (20:00→22:11)
--- NOTE | 2018-06-22 20:35 | ED PDOC ---
HPI: Altered Mental Status Time Seen by Provider: 06/22/18 18:34 Chief Complaint (Nursing): Altered Mental Status Chief Complaint (Provider): Altered Mental Status History Per: Patient History/Exam Limitations: None Onset/Duration Of Symptoms: Hrs Current Symptoms Are (Timing): Still Present Exacerbating Factor(s): Diabetic Additional Complaint(s): 82 y/o female with a PMHx of Diabetes brought into the ED by daughter for evaluation of an altered mental status. Daughter states patient vomited once 3 hours prior to arrival. Daughter reports patient's glucose level was decreasing since episode of vomiting going from 60 to 32 over the course of three hours. Daughter states patient was given Glucagon en-route which only increased her blood sugar to 49. Daughter further reports patient was additionally given sugary juices with no improvement of low glucose level. Daughter states patient had been increasingly lethargic, not responding verbally for a period of time as well as complaining of a headache, feeling cold and clammy. Daughter notes patient's eyes rolled back for a period of time and returned to her normal self within 10-15 minutes. Daughter reports headache was not like patient's usual migraines. Daughter states typical migraines are one sided. However, this headache was two sided. Daughter reports if giving fioricet to treat the headache. Of note, daughter reports patient has been increasingly hungry throughout the day, eating and drinking more than usual. Otherwise, daughter denies dysuria and urinary retention. 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; L side weakness), Dementia, Depression, Diabetes, Diverticulitis (Diverticulosis), Fractures (rt wrist/elbow), Gastritis, HTN, Hypercholesterolemia, Hyperlipidemia, Hypothyroidism, Migraine, Peripheral Edema (occasional lower extremities), Pneumonia, TIA Denies: Arthritis, Asthma, Atrial Fibrillation, Bipolar Disorder, Bronchitis, CAD, Cardia Arrhythmia, COPD, Crohn's Disease, Emphysema, Gall Bladder Disease, HIV, Hyperthyroidism, Kidney Stones, Mitral Valve Prolapse, Multiple Sclerosis, Osteoporosis, Pancreatitis, Paranoia, Parkinson's Disease, Post Traumatic Stress Disorder, Pulmonary Embolism, Chronic Kidney Disease, Rheumatoid Arthritis, Schizophrenia, Seizures, Sickle Cell Disease, Sexually Transmitted Disease, Sleep Apnea - Surgical History Surgical History: Tonsillectomy (partial thyroidectomy) Denies: Appendectomy, CABG, Carotid Endarterectomy, Cholecystectomy, Coronary Stent, Pacemaker - Family History Family History: States: Unknown Family Hx - Living Arrangements Living Arrangements: With Family - Social History Current smoker - smoking cessation education provided: No Alcohol: None Drugs: Denies - Home Medications Home Medications: Ambulatory Orders Medication Instructions Recorded Meclizine HCl [Antivert] 25 mg PO TID PRN 08/23/15 Ranitidine HCl [Zantac] 150 mg PO BID 06/10/17 Acetaminophen/Butalbital/Caf 1 tab PO Q8H PRN #30 tab 04/28/18 [Fioricet] Atorvastatin [Lipitor] 40 mg PO HS #30 tab 04/28/18 Brimonidine Tartrate/Timolol 1 drop LEFTEYE Q12 #1 drops 04/28/18 [Combigan 0.2%-0.5% Eye Drops] Cholecalciferol [Vitamin D 1000 IU] 1,000 intlu PO DAILY #30 tab 04/28/18 Clopidogrel [Plavix] 75 mg PO DAILY #30 tab 04/28/18 Donepezil [Aricept] 10 mg PO HS #30 tab 04/28/18 Famotidine [Pepcid] 20 mg PO BID #30 tab 04/28/18 GlipiZIDE SR [Glucotrol XL] 2.5 mg PO BRK #60 tab 04/28/18 Latanoprost 0.005% Opht [Xalatan 1 drop LEFTEYE HS #1 bottle 04/28/18 Opht] Levothyroxine [Synthroid] 75 mcg PO DAILY@0630 #30 tab 04/28/18 Meclizine [Meclizine*] 25 mg PO TID PRN #90 tab 04/28/18 Memantine [Namenda] 10 mg PO Q12 #30 tab 04/28/18 Metoprolol Tartrate [Lopressor] 12.5 mg PO DAILY PRN #30 tab 04/28/18 Mineral Oil/Petrolatum,White 1 unit RIGHTEYE HS 30 Days #1 04/28/18 [Systane Nighttime Eye Ointment] oint...g. Nystatin [Nystop Topical Powder] 1 applic TOP TID #1 bottle 04/28/18 Polyvinyl Alcohol/Povidone 1 drop OS TID 30 Days #1 drpette 04/28/18 [Refresh Opth Soln] Prednisolone Acetate [Pred Forte] 1 drop LEFTEYE QID 30 Days #1 04/28/18 drops.susp Ramipril [Altace] 5 mg PO DAILY #30 cap 04/28/18 SITagliptin [Januvia] 100 mg PO DAILY #30 tab 04/28/18 Sertraline [Zoloft] 50 mg PO HS #30 tab 04/28/18 cycloSPORINE [Restasis] 1 drop LEFTEYE Q12H 30 Days #1 04/28/18 bottle risperiDONE [RisperDAL Tab] 0.25 mg PO QAM #30 tab 04/28/18 - Allergies Allergies/Adverse Reactions: Allergies Allergy/AdvReac Type Severity Reaction Status Date / Time aspirin Allergy NAUSEA Verified 06/22/18 18:35 ciprofloxacin Allergy REDNESS Verified 04/20/18 16:18 Sulfa (Sulfonamide Allergy RASH Verified 06/22/18 18:35 Antibiotics) Iodinated Contrast- Oral and AdvReac VOMITING Verified 06/22/18 18:35 IV Dye metformin AdvReac DIARRHEA Verified 06/22/18 18:35 Review of Systems Review Of Systems: ROS cannot be obtained secondary to pt's inabilty to answer questions. Physical Exam - Reviewed Nursing Documentation Reviewed: Yes Vital Signs Reviewed: Yes - Physical Exam Appears: Positive for: No Acute Distress Skin: Positive for: Normal Color, Warm, Dry Cardiovascular/Chest: Positive for: Regular Rate, Rhythm Respiratory: Positive for: Normal Breath Sounds Gastrointestinal/Abdominal: Positive for: Bowel Sounds, Soft. Negative for: Tenderness Extremity: Negative for: Swelling Neurologic/Psych: Positive for: Alert, Other (At Normal Baseline (as per daughter)). Negative for: Oriented, Motor/Sensory Deficits, Facial Droop - Laboratory Results Result Diagrams: 06/22/18 20:43 06/22/18 20:43 - ECG O2 Sat by Pulse Oximetry: 99 (RA) Pulse Ox Interpretation: Normal - Radiology X-Ray: Interpreted by Me X-Ray Interpretation: No Acute Disease - Critical Care Total Time (In Min): 60 Medical Decision Making Medical Decision Making: Time: 2027 Plan: -- Glucose, POC Time: 2039 Plan: -- VBG -- VBG -- CT Head w/o Contrast -- EKG -- CMP -- Magnesium -- Phosphorus -- Troponin I -- CBC with differnetials -- PTT -- Prothrombin Time -- CXR Portable -- Glucose, POC -- Sodium Chloride 0.9% IV 500 mls/hr -- Sodium Chloride 0.9% IV 500 mls/hr -- Blood Culture -- Urine Culture -- Tar Roofer -- [place] Hugger -- Solis Urinary Catheter Insertion -- Vital Signs Q15M -- Influenza A B -- Urinalysis Time: 2225 CT HEAD RESULTS FINDINGS: BRAIN Chronic periventricular and subcortical microvascular disease is seen. VENTRICLES: There is generalized parenchymal atrophy noted as demonstrated by symmetrical dilatation of ventricles and sulci. ORBITS: The orbits are unremarkable. SINUSES AND MASTOIDS: The paranasal sinuses and mastoid air cells are clear. BONES: No fracture. SOFT TISSUES: Unremarkable. MISCELLANEOUS: No acute intracranial pathology. IMPRESSION: 1. There is generalized parenchymal atrophy noted as demonstrated by symmetrical dilatation of ventricles and sulci. 2. Chronic periventricular and subcortical microvascular disease is seen. 3. No acute intracranial pathology. Electronically signed on Jun 22, 2018 10:26:19 PM EST by: Neri Miller M.D., PATIENCE Certified By [employer] [facility] Fellowship Trained MRI and CT Specialist ____ _ Scribe Attestation: Documented by Jennifer Solomon, acting as a scribe for Zeny Barrow MD. Provider Scribe Attestation: All medical record entries made by the Scribe were at my direction and perso chris dictated by me. I have reviewed the chart and agree that the record accurately reflects my personal performance of the history, physical exam, medical decision making, and the department course for this patient. I have also personally directed, reviewed, and agree with the discharge instructions and disposition. Procedures - Central Line Central Line Lumen: triple Central Line Procedure: betadine prep, sterile drapes applied, sterile dressing applied Central Line Postion: femoral (R), femoral (L) Anesthesia: Lidocaine Complications: Unobtained in R femoral Central Line Post Position: sutured, good blood return Disposition - Clinical Impression Clinical Impression: Urinary tract infection, Sepsis - Patient ED Disposition Is Patient to be Admitted: Yes - Disposition Disposition Time: 00:18 Condition: GUARDED Forms: [employer] (Lao) - Pt Status Changed To: Hospital Disposition Of: Inpatient - Admit Certification Admit to Inpatient:: After my assessment, the patient will require hospitalization for at least two midnights. This is because of the severity of symptoms shown, intensity of services needed, and/or the medical risk in this patient being treated as an outpatient. - POA Present On Arrival: Poor Glycemic Control
[2018-06-22 20:48] LABS: VENOUS BLOOD GAS BASE EXCESS -11.1 mmol/L (0.0-2.0); VENOUS BLOOD GAS PCO2 83 mmHg (40-60); VENOUS BLOOD GAS PO2 39 mm/Hg (30-55); VENOUS BLOOD PH 7.02 (7.32-7.43)
[2018-06-22 21:00] LABS: BASO % 0.1 % (0.0-2.0); EOS % 0.2 % (0.0-4.0); HEMOGLOBIN 10.7 g/dL (12.0-16.0); LYMPH # 0.5 K/uL (1.0-4.3); LYMPH % 3.3 % (20.0-40.0); MEAN CELL VOLUME 89.3 fl (81.0-99.0); MEAN CORPUSCULAR HEMOGLOBIN 28.6 pg (27.0-31.0); MONO # 1.5 K/uL (0.0-0.8); MONO % 9.1 % (0.0-10.0); NEUT # 14.1 K/uL (1.8-7.0); NEUT % 87.3 % (50.0-75.0); PLATELET COUNT 374 K/uL (130-400); RBC 3.73 Mil/uL (3.80-5.20); RED CELL DISTRIBUTION WIDTH 15.3 % (11.5-14.5); WHITE BLOOD COUNT 16.1 K/uL (4.8-10.8)
[2018-06-22 21:06] LABS: PROTHROMBIN TIME 11.9 Seconds (9.8-13.1)
[2018-06-22 21:09] LABS: ALBUMIN 3.6 g/dL (3.5-5.0); ALT/SGPT 19 U/L (9-52); AST/SGOT 34 U/L (14-36); BLOOD UREA NITROGEN 39 mg/dl (7-17); CALCIUM 9.5 mg/dL (8.4-10.2); GFR NON-AFRICAN AMERICAN 47; PARTIAL THROMBOPLASTIN TIME 29.5 Seconds (25.6-37.1)
[2018-06-22 21:50] LABS: LYMPHOCYTE 3 % (20-50); MONOCYTE 8 % (0-10); NEUTROPHIL 89 % (42-75); PLATELET ESTIMATE NORMAL (NORMAL); TOTAL CELLS COUNTED 100
[2018-06-22 21:53] LABS: ANISOCYTOSIS SLIGHT; OVALOCYTES SLIGHT; POIKILOCYTOSIS SLIGHT; SCHISTOCYTES SLIGHT; TEARDROP CELLS SLIGHT
[2018-06-22 23:40] LABS: VENOUS BLOOD GAS BASE EXCESS -9.8 mmol/L (0.0-2.0); VENOUS BLOOD GAS PCO2 75 mmHg (40-60); VENOUS BLOOD GAS PO2 40 mm/Hg (30-55); VENOUS BLOOD PH 7.07 (7.32-7.43)
[2018-06-22] MEDS ORDERED: Sodium Bicarbonate 4.2% Inj (Infant) IVP STA (23:45)
[2018-06-22] MEDS ORDERED: Piperacillin/Tazobact 4.5 GM in Sodium Chloride 0.9% 100 ML IVPB STA (23:48)
[2018-06-23] MEDS ORDERED: Vancomycin 1 g Inj ONE (00:05)
[2018-06-23 00:12] LABS: SQUAMOUS EPITHIAL 2 /hpf (0-5); URINE BACTERIA MANY (<OCC); URINE BILIRUBIN NEGATIVE (NEGATIVE); URINE BLOOD SMALL (NEGATIVE); URINE CLARITY TURBID (Clear); URINE COLOR AMBER (YELLOW); URINE GLUCOSE (UA) NEG (NEGATIVE); URINE LEUKOCYTE ESTERASE LARGE Leu/uL (Negative); URINE PROTEIN 30 mg/dL (NEGATIVE); URINE UROBILINOGEN 0.2-1.0 mg/dL (0.2-1.0); WBC CLUMPS MANY /hpf
[2018-06-23] MEDS ORDERED: Apap-Butalbital-Caffeine 325-50-40mg Tab PO PRN (06:27)
[2018-06-23] MEDS ORDERED: Patient's Own Med (Cyclosporine [Restasis] 1 DROP) LEFTEYE SCH (06:30)
[2018-06-23] MEDS ORDERED: Pantoprazole 40 MG in Sodium Chloride 0.9% 100 ML IVPB SCH (06:45)
[2018-06-23] MEDS: Levothyroxine 75 MCG TAB PO SCH (07:05)
[2018-06-23] MEDS: Dextrose 5%/Lactated Ringer's 1,000 ML IV SCH ×2 (07:06→21:55)
[2018-06-23] MEDS: GlipiZIDE 2.5 mg SR Tab PO SCH (08:55)
[2018-06-23] MEDS: PrednisoLONE 1% OPTH SUSP OS SCH ×4 (08:59→21:55)
[2018-06-23] MEDS ORDERED: Patient's Own Med (Brimonidine Tartrate/Timolol [Combigan 0.2%-0.5% Eye Drops] 1 DROP) LEFTEYE SCH (09:00)
[2018-06-23] MEDS: Pantoprazole 40 MG in Sodium Chloride 0.9% 100 ML IVPB SCH ×4 (09:01→21:58)
[2018-06-23] MEDS: Lubricant Eye Drops UD OS SCH ×3 (09:03→16:09)
[2018-06-23] MEDS: Cholecalciferol 1,000 INTLU TAB PO SCH (09:06)
[2018-06-23 09:35] LABS: HEMOGLOBIN 9.8 g/dL (12.0-16.0); MEAN CORPUSCULAR HEMOGLOBIN 29.3 pg (27.0-31.0); RBC 3.34 Mil/uL (3.80-5.20); RED CELL DISTRIBUTION WIDTH 14.9 % (11.5-14.5); WHITE BLOOD COUNT 13.1 K/uL (4.8-10.8)
[2018-06-23 09:40] LABS: MEAN CELL VOLUME 91.4 fl (81.0-99.0)
--- NOTE | 2018-06-23 13:07 | CT ---
Date of service: 06/22/2018 PROCEDURE: CT HEAD WITHOUT CONTRAST. HISTORY: JONAS COMPARISON: Comparison made with CT scan brain dated 02/16/2018. TECHNIQUE: Axial computed tomography images were obtained through the head/brain without intravenous contrast. Radiation dose: Total exam DLP = 763.8 mGy-cm. This CT exam was performed using one or more of the following dose reduction techniques: Automated exposure control, adjustment of the mA and/or kV according to patient size, and/or use of iterative reconstruction technique. FINDINGS: HEMORRHAGE: No intracranial hemorrhage. BRAIN: Moderate chronic periventricular white matter ischemic changes seen extending peripherally into the deep and subcortical white matter both cerebral hemispheres... Additionally, there also appear to be a few tiny chronic bilateral basal nuclei lacunar type infarcts From moderate to fairly significant generalized volume loss. Dense also again noted are bilateral basal ganglia calcifications. Vascular calcifications both carotid siphons and vertebral arteries VENTRICLES: No obstructive hydrocephalus. CALVARIUM: Calvarium intact... PARANASAL SINUSES: Unremarkable as visualized. No significant inflammatory changes. MASTOID AIR CELLS: Unremarkable as visualized. No inflammatory changes. OTHER FINDINGS: Changes of bilateral cataract surgery. IMPRESSION: No acute intracranial hemorrhage. Moderate chronic periventricular white matter ischemic changes. The moderate to fairly significant generalized volume loss.
[2018-06-23] MEDS: Brimonidine 0.2% 50 DROP/5 ML BOTTLE OS SCH (15:54)
[2018-06-23] MEDS: Insulin Regular 100 units/ml SC SCH ×2 (16:00→22:06)
--- NOTE | 2018-06-23 18:16 | RAD ---
Date of service: 06/22/2018 HISTORY: Sepsis Patient COMPARISON: Comparison chest dated 02/16/2018 FINDINGS: LUNGS: Poor inspiration with low lung volumes, crowded bronchovascular markings and mild bibasilar atelectasis. PLEURA: No significant pleural effusion identified, no pneumothorax apparent. CARDIOVASCULAR: Mild aortic atherosclerotic calcification present. Cardiomegaly.. No pulmonary vascular congestion. OSSEOUS STRUCTURES: No significant abnormalities. VISUALIZED UPPER ABDOMEN: Normal. OTHER FINDINGS: None. IMPRESSION: Poor inspiration with low lung volumes and mild bibasilar atelectasis
[2018-06-23] MEDS: Latanoprost 0.005% Opht SOUTION OS SCH (21:57)
[2018-06-23] MEDS: Mineral Oil/White Petrolatum Ophth Oint OD SCH (22:00)
--- NOTE | 2018-06-24 00:25 | CARD ---
APPROVED REPORT Date of service: 06/22/2018 EKG Measurement Heart [id number] <Conclusion> Normal sinus rhythm Nonspecific T wave abnormality Prolonged QT Abnormal ECG
[2018-06-24] MEDS: Piperacillin/Tazobact 4.5 GM in Sodium Chloride 0.9% 100 ML IVPB SCH ×3 (00:49→16:29)
[2018-06-24] MEDS: Pantoprazole 40 MG in Sodium Chloride 0.9% 100 ML IVPB SCH ×4 (03:04→22:45)
[2018-06-24] MEDS: Brimonidine 0.2% 50 DROP/5 ML BOTTLE OS SCH ×2 (03:04→14:21)
[2018-06-24] MEDS: Insulin Regular 100 units/ml SC SCH ×4 (06:40→23:41)
[2018-06-24] MEDS: GlipiZIDE 2.5 mg SR Tab PO SCH (08:08)
[2018-06-24] MEDS: PrednisoLONE 1% OPTH SUSP OS SCH ×4 (08:11→23:49)
[2018-06-24] MEDS: Lubricant Eye Drops UD OS SCH ×3 (08:14→16:27)
[2018-06-24] MEDS: Cholecalciferol 1,000 INTLU TAB PO SCH (08:14)
[2018-06-24] MEDS: Levothyroxine 75 MCG TAB PO SCH (08:33)
[2018-06-24 11:42] LABS: HEMOGLOBIN 7.9 g/dL (12.0-16.0); MEAN CELL VOLUME 89.5 fl (81.0-99.0); MEAN CORPUSCULAR HEMOGLOBIN 29.2 pg (27.0-31.0); MEAN CORPUSCULAR HGB CONC 32.6 g/dL (33.0-37.0); RBC 2.72 Mil/uL (3.80-5.20); RED CELL DISTRIBUTION WIDTH 15.3 % (11.5-14.5); WHITE BLOOD COUNT 7.3 K/uL (4.8-10.8)
[2018-06-24 13:11] LABS: BLOOD UREA NITROGEN 44 mg/dl (7-17); CALCIUM 8.4 mg/dL (8.4-10.2); GFR NON-AFRICAN AMERICAN 60
[2018-06-24] MEDS ORDERED: Potassium Chloride 20 mEq ER Tab PO ONE (14:52)
--- NOTE | 2018-06-24 18:57 | CON ---
DATE: 06/24/2018 REFERRING PHYSICIAN: Morris Mcginnis MD REASON FOR CONSULTATION: Coffee-ground emesis. HISTORY OF PRESENT ILLNESS: This is an 82-year-old female with diabetes, who is a poor historian. The patient comes in, brought in by the family for episodes of vomiting per the daughter. The patient actually is less nauseous now, has no pain. Denies any GI complaints. Lying in bed comfortably, in no apparent distress. PAST MEDICAL HISTORY: As above. PAST SURGICAL HISTORY: As above. MEDICATIONS: Have been reviewed. REVIEW OF SYSTEMS: All other systems have been reviewed and negative apart from the HPI. PHYSICAL EXAMINATION GENERAL: This is a pleasant elderly-appearing female, lying in bed comfortably, in no apparent distress. VITAL SIGNS: Here in the hospital, grossly unremarkable. HEENT: Head: Normocephalic and atraumatic. Eyes: Pupils are equally reactive to light bilaterally. No conjunctival pallor or icterus. NECK: Supple, normal range of motion. No lymphadenopathy appreciated. LUNGS: Coarse breath sounds bilaterally. HEART: S1 and S2, regular rate and rhythm. No murmurs appreciated. ABDOMEN: Soft, nontender. Bowel sounds present. Some discomfort in the quadrant. No rebound, no guarding. RECTAL: Deferred. EXTREMITIES: Pulses present bilaterally. SKIN: Warm, dry and intact. NEUROLOGIC: A and O x2. LABORATORY DATA: Labs and radiology have been reviewed. WBC is down to 13.1, hemoglobin 9.9 and stable, platelet count is 343. Sugars are over 200. ASSESSMENT: This is an 82-year-old female with hyperglycemia and coffee-ground emesis. PLAN: For CAT scan at this point, n.p.o. for now. Sugar control. Thank you for the consult. George Casas MD/ PhD cc: Morris Mcginnis M.D.
[2018-06-24] MEDS: Latanoprost 0.005% Opht SOUTION OS SCH (23:48)
[2018-06-24] MEDS: Mineral Oil/White Petrolatum Ophth Oint OD SCH (23:50)
[2018-06-25] MEDS: Piperacillin/Tazobact 4.5 GM in Sodium Chloride 0.9% 100 ML IVPB SCH (01:30)
[2018-06-25] MEDS: Brimonidine 0.2% 50 DROP/5 ML BOTTLE OS SCH ×2 (02:20→14:32)
[2018-06-25] MEDS: Pantoprazole 40 MG in Sodium Chloride 0.9% 100 ML IVPB SCH ×5 (03:50→23:45)
[2018-06-25 06:05] LABS: HEMOGLOBIN 6.9 g/dL (12.0-16.0); MEAN CELL VOLUME 89.8 fl (81.0-99.0); MEAN CORPUSCULAR HEMOGLOBIN 29.3 pg (27.0-31.0); MEAN CORPUSCULAR HGB CONC 32.7 g/dL (33.0-37.0); RBC 2.36 Mil/uL (3.80-5.20); RED CELL DISTRIBUTION WIDTH 15.1 % (11.5-14.5); WHITE BLOOD COUNT 8.4 K/uL (4.8-10.8)
[2018-06-25] MEDS: Insulin Regular 100 units/ml SC SCH ×4 (06:09→23:00)
[2018-06-25] MEDS: Levothyroxine 75 MCG TAB PO SCH (06:09)
[2018-06-25 08:37] LABS: HEMOGLOBIN 7.9 g/dL (12.0-16.0); MEAN CELL VOLUME 91.9 fl (81.0-99.0); MEAN CORPUSCULAR HEMOGLOBIN 29.6 pg (27.0-31.0); MEAN CORPUSCULAR HGB CONC 32.2 g/dL (33.0-37.0); RBC 2.66 Mil/uL (3.80-5.20); RED CELL DISTRIBUTION WIDTH 14.9 % (11.5-14.5); WHITE BLOOD COUNT 9.4 K/uL (4.8-10.8)
--- NOTE | 2018-06-25 08:47 | CP.PCM.PN ---
Subjective - Date & Time of Evaluation Date of Evaluation: 06/25/18 Time of Evaluation: 08:46 - Subjective Subjective: no overnight events Objective - Vital Signs/Intake and Output Vital Signs (last 24 hours): Temp Pulse Resp BP Pulse Ox 98.3 F 64 20 130/56 L 99 06/25/18 08:00 06/25/18 08:00 06/25/18 08:00 06/25/18 08:00 06/25/18 08:00 Intake and Output: 06/25/18 06/25/18 06:59 18:59 Intake Total 1480 Output Total 1700 Balance -220 - Medications Medications: Current Medications Acetaminophen/Butalbital/Caffeine (Fioricet) 1 tab PO Q8H PRN PRN Reason: Migraine headache Artificial Tears (Lacri-Lube) 1 applic OD HS [facility] Last Admin: 06/24/18 23:50 Dose: 1 applic Artificial Tears (Refresh Opth Soln) 1 ml OS TID [facility] Last Admin: 06/24/18 16:27 Dose: 1 drop Atorvastatin Calcium (Lipitor) 40 mg PO HS [facility] Last Admin: 06/24/18 23:47 Dose: 40 mg Brimonidine Tartrate (Alphagan 0.2% Opht) 1 drop OS Q12H [facility] Last Admin: 06/25/18 02:20 Dose: 1 drop Cholecalciferol (Vitamin D) 1,000 intlu PO DAILY [facility] Last Admin: 06/24/18 08:14 Dose: Not Given Donepezil HCl (Aricept) 10 mg PO HS [facility] Last Admin: 06/24/18 23:47 Dose: 10 mg Famotidine (Pepcid) 20 mg PO BID [facility] Last Admin: 06/24/18 16:33 Dose: 20 mg Glipizide (Glucotrol Xl) 2.5 mg PO BRK [facility] Last Admin: 06/24/18 08:08 Dose: Not Given Home Med (Cyclosporine [Restasis]) 1 drop LEFTEYE Q12H [facility] Pantoprazole Sodium 40 mg/ (Sodium Chloride) 100 mls @ 20 mls/hr IVPB Q5H [facility] Last Admin: 06/25/18 03:50 Dose: 20 mls/hr Vancomycin HCl 1 gm/ Sodium (Chloride) 250 mls @ 166.667 mls/hr IVPB DAILY@2200 [facility]; Protocol Last Admin: 06/24/18 22:30 Dose: 166.667 mls/hr Ceftriaxone Sodium 1 gm/ (Sodium Chloride) 100 mls @ 100 mls/hr IVPB DAILY [facility]; Protocol Insulin Human Regular (Humulin R) 0 units SC ACCU-CHECK [facility]; Protocol Last Admin: 06/25/18 06:09 Dose: 3 units Latanoprost (Xalatan Opht) 1 drop OS HS [facility] Last Admin: 06/24/18 23:48 Dose: 1 drop Levothyroxine Sodium (Synthroid) 75 mcg PO DAILY@0630 [facility] Last Admin: 06/25/18 06:09 Dose: 75 mcg Meclizine HCl (Antivert) 25 mg PO TID PRN PRN Reason: Dizziness Memantine (Namenda) 10 mg PO Q12 [facility] Last Admin: 06/24/18 23:47 Dose: 10 mg Metoprolol Tartrate (Lopressor) 12.5 mg PO DAILY PRN PRN Reason: SBP >139 Nystatin (Nystop Topical Powder) 1 applic TOP TID [facility] Last Admin: 06/24/18 16:26 Dose: 1 applic Prednisolone Acetate (Pred Forte 1% Opht Susp) 1 drop OS QID [facility] Last Admin: 06/24/18 23:49 Dose: 1 drop Ramipril (Altace) 5 mg PO DAILY [facility] Last Admin: 06/24/18 08:08 Dose: Not Given Risperidone (Risperdal Tab) 0.25 mg PO QAM [facility] Last Admin: 06/24/18 08:14 Dose: Not Given Risperidone (Risperdal Tab) 0.5 mg PO [facility] Last Admin: 06/24/18 23:47 Dose: 0.5 mg Sertraline HCl (Zoloft) 50 mg PO [facility] Last Admin: 06/24/18 23:47 Dose: 50 mg Sitagliptin Phosphate (Januvia) 100 mg PO DAILY [facility] Last Admin: 06/24/18 08:08 Dose: Not Given Timolol Maleate (Timoptic 0.5% Ophth Soln) 1 drop OS Q12H [facility] Last Admin: 06/25/18 02:20 Dose: 1 drop - Labs Labs: 06/25/18 08:28 06/24/18 09:21 PT 11.9 Seconds (9.8-13.1) 06/22/18 20:43 INR 1.0 06/22/18 20:43 APTT 29.5 Seconds (25.6-37.1) 06/22/18 20:43 - Neck Exam Neck Exam: Normal Inspection - Respiratory Exam Respiratory Exam: Clear to Ausculation Bilateral, NORMAL BREATHING PATTERN - Cardiovascular Exam Cardiovascular Exam: REGULAR RHYTHM - GI/Abdominal Exam GI & Abdominal Exam: Soft, Normal Bowel Sounds Assessment and Plan - Assessment and Plan (Free Text) Assessment: 82 yo female with coffee grounds plan for ct today trend labs
[2018-06-25] MEDS: GlipiZIDE 2.5 mg SR Tab PO SCH (08:59)
[2018-06-25] MEDS: PrednisoLONE 1% OPTH SUSP OS SCH ×4 (09:01→21:38)
[2018-06-25 09:03] LABS: BLOOD UREA NITROGEN 23 mg/dl (7-17); CALCIUM 8.3 mg/dL (8.4-10.2); GFR NON-AFRICAN AMERICAN > 60
[2018-06-25] MEDS: Lubricant Eye Drops UD OS SCH ×3 (09:05→16:47)
[2018-06-25] MEDS: Cholecalciferol 1,000 INTLU TAB PO SCH (09:07)
[2018-06-25] MEDS: Potassium CL 10mEq/100ml 100 ML IVPB SCH ×4 (10:34→14:33)
--- NOTE | 2018-06-25 10:48 | CT ---
Date of service: 06/24/2018 PROCEDURE: CT Abdomen and Pelvis without intravenous contrast HISTORY: llq pain, allergies to iodine po contrast COMPARISON: 06/10/2017 TECHNIQUE: Without contrast.. Contrast dose: Radiation dose: Total exam DLP = 0 mGy-cm. This CT exam was performed using one or more of the following dose reduction techniques: Automated exposure control, adjustment of the mA and/or kV according to patient size, and/or use of iterative reconstruction technique. FINDINGS: LOWER THORAX: No infiltrate/effusion. Linear scar/atelectasis right lower lobe. Minimal pleural thickening both posterior lower lobes. There are 2 nodules, 4 mm and 5 mm, abutting the minor fissure, unchanged from prior CT, likely intrapulmonary lymph nodes. No followup required as per Fleischner society criteria. LIVER: Unremarkable. No gross lesion or ductal dilatation. GALLBLADDER AND BILE DUCTS: The gallbladder is distended. Questionable thickening of the gallbladder wall. Recommend correlation with ultrasound. No pericholecystic fluid. No calcified gallstones. PANCREAS: Unremarkable. No gross lesion or ductal dilatation. SPLEEN: Unremarkable. ADRENALS: Unremarkable. No mass. KIDNEYS AND URETERS: 1.5 cm low-density cortical mass mid left kidney, likely cyst. This measures 17 Hounsfield units. No other mass. No calculus or hydronephrosis. VASCULATURE: Unremarkable. No aortic aneurysm. There is atherosclerotic calcification of the abdominal aorta. BOWEL: There is moderate to large amount of retained stool in the rectum and distal sigmoid colon. There is no bowel obstruction. No abnormal bowel loops are identified. APPENDIX: Unremarkable. Normal appendix. PERITONEUM: Unremarkable. No free fluid. No free air. LYMPH NODES: Unremarkable. No enlarged lymph nodes. BLADDER: Bladder is poorly distended around a Solis catheter balloon. The wall appears abnormally thickened. Please correlate for possible cystitis. REPRODUCTIVE: Normal postmenopausal uterus. BONES: No acute fracture. OTHER FINDINGS: None. IMPRESSION: Distended gallbladder with questionable mural thickening. Consider further evaluation with ultrasound examination. No biliary obstruction. No evidence of diverticulitis or bowel obstruction. Retained feces in the rectum and distal sigmoid colon. Thickened bladder wall raises some suspicion of cystitis. Correlate with urinalysis. Additional minor findings as above.
--- NOTE | 2018-06-25 16:54 | US ---
Date of service: 06/25/2018 HISTORY: distended GB w/ thickening on Ct w/o contrast COMPARISON: June 24, 2018. CT abdomen and pelvis TECHNIQUE: Sonographic evaluation of the right upper quadrant of the abdomen. FINDINGS: LIVER: Measures 14.2 cm in length. Patent portal vein. Portal venous flow: Hepatopetal. Unremarkable echogenicity of the liver parenchyma. No mass. No intrahepatic bile duct dilatation. GALLBLADDER: Distended gallbladder, gallbladder wall thickening 5.8 mm. No stones, sludge or sonographic Keller sign identified. COMMON BILE DUCT: Measures 6.5 mm. No stones. No dilatation. PANCREAS: Unremarkable as visualized. No mass. No ductal dilatation. RIGHT KIDNEY: Measures 3.6 x 11.1 cm in length. Normal echogenicity. No calculus, mass, or hydronephrosis. AORTA: No aneurysmal dilatation. IVC: Unremarkable. OTHER FINDINGS: None. IMPRESSION: Distended gallbladder. Gallbladder wall thickening. No other significant hepatobiliary abnormalities.
--- NOTE | 2018-06-25 19:00 | CP.PCM.CON ---
History of Present Illness - History of Present Illness History of Present Illness: 82 y/o female with a PMHx of Diabetes brought into the ED by daughter for evaluation of an altered mental status. Daughter states patient vomited once 3 hours prior to arrival. presents to ED for evaluation of urinary retention and abdominal pain x7 hours. Patient has hx of recurrent UTI. Referred for ID eval of ESBL UTI PMHx: IDDM type 2, HTN, hypothyroidism, CVA with b/l blindess, left side weakness, , diverticulitis, advanced dementia, recurrent UTI SurgHx: partial thyroidectomy, tonsillectomy FMHx: noncontributory SHx: denies tobacco/Etoh or drugs Allergies: sulfanamide antibiotics, iodine contrast, metformin; aspirin listed but pt takes at home and has taken in hospital before Meds as bellow Review of Systems - Review of Systems Systems not reviewed;Unavailable: Altered Mental Status All systems: reviewed and no additional remarkable complaints except - Constitutional Constitutional: As Per HPI - EENT Eyes: absent: As Per HPI, Blind Spots, Blurred Vision, Change in Vision, Decreased Night Vision, Diplopia, Discharge, Dry Eye, Exophthalmos, Floaters, Irritation, Itchy Eyes, Loss of Peripheral Vision, Pain, Photophobia, Requires Corrective Lenses, Sees Flashes, Spots in Vision, Tunnel Vision, Other Visual Disturbances, Loss of Vision, Other Ears: absent: As Per HPI, Decreased Hearing, Ear Discharge, Ear Pain, Tinnitus, Abnormal Hearing, Disequilibrium, Dizziness, Other Nose/Mouth/Throat: absent: As Per HPI, Epistaxis, Nasal Congestion, Nasal Discharge, Nasal Obstruction, Nasal Trauma, Nose Pain, Post Nasal Drip, Sinus Pain, Sinus Pressure, Bleeding Gums, Change in Voice, Dental Pain, Dry Mouth, Dysphagia, Halitosis, Hoarsness, Lip Swelling, Mouth Lesions, Mouth Pain, Odynophagia, Sore Throat, Throat Swelling, Tongue Swelling, Facial Pain, Neck Pain, Neck Mass, Other - Breasts Breasts: absent: As Per HPI, Change in Shape, Mass, Pain, Nipple Discharge, Nipple Inversion, Skin Changes, Swelling, Other - Cardiovascular Cardiovascular: absent: As Per HPI, Acrocyanosis, Chest Pain, Chest Pain at Res t, Chest Pain with Activity, Claudication, Diaphoresis, Dyspnea, Dyspnea on Exertion, Edema, Irregular Heart Rhythm, Pain Radiating to Arm/Neck/Jaw, Leg Edema, Leg Ulcers, Lightheadedness, Orthopnea, Palpitations, Paroxysmal Nocturnal Dyspnea, Pedal Edema, Radiating Pain, Rapid Heart Rate, Slow Heart Rate, Syncope, Other - Respiratory Respiratory: absent: As Per HPI, Cough, Dyspnea, Hemoptysis, Dyspnea on Exertion, Wheezing, Snoring, Stridor, Pain on Inspiration, Chest Congestion, Excessive Mucous Production, Change in Mucous Color, Pain with Coughing, Other - Gastrointestinal Gastrointestinal: absent: As Per HPI, Abdominal Pain, Belching, Bloating, Change in Bowel Habits, Change in Stool Character, Coffee Ground Emesis, Constipation, Cramping, Diarrhea, Dyspepsia, Dysphagia, Early Satiety, Excessive Flatus, Fecal Incontinence, Heartburn, Hematemesis, Hematochezia, Loose Stools, Melena, Nausea, Odynophagia, Temesmus, Vomiting, Other - Genitourinary Genitourinary: As Per HPI - Reproductive: Female Reproductive:Female: absent: As Per HPI, Amenorrhea, Amenorrhea/ Control, Currently Menstual, Cycle <21 Days, Cycle >35 Days, Cycle Variable, Menses 1-7 Days, Menses >/= 8 Days, Menses Variable, Cycle > 4 Weeks Between, No Menses for 6 Months, Heavy Menses, Light Menses, Normal Menses, Spotting Between Cycles, S/P Hysterectomy, Menopausal, Post Menopausal, Premenarche, Abnormal Vaginal Bleeding, Dysmenorrhea, Dyspareunia, Genital Lesions, Genital Pruritis, Pelvic Pain, Prolapse Symptoms, Sexual Dysfunction, Vaginal Discharge, Vaginal Dryness, Vaginal Odor, Vaginal Pruritis, Other - Menstruation Menstruation: absent: As Per HPI, Amenorrhea, Amenorrhea/ Control, Currently Menstual, Cycle <21 Days, Cycle >35 Days, Cycle Variable, Menses 1-7 Days, Menses >/= 8 Days, Menses Variable, Cycle > 4 Weeks Between, No Menses for 6 Months, Heavy Menses, Light Menses, Normal Menses, Spotting Between Cycles, S/P Hysterectomy, Menopausal, Post Menopausal, Premenarche, Abnormal Vaginal Bleeding, Dysmenorrhea, Other - Musculoskeletal Musculoskeletal: absent: As Per HPI, Abnormal Gait, Arthralgias, Atrophy, Back Pain, Deformity, Joint Swelling, Limited Range of Motion, Loss of Height, Muscle Cramps, Muscle Weakness, Myalgias, Neck Pain, Numbness, Radiating Pain into Limb, Stiffness, Tingling, Other - Integumentary Integumentary: absent: As Per HPI, Acne, Alopecia, Bleeding Lesions, Change in Hair, Change in Nails, Change in Pigmentation, Changing Lesions, Dry Skin, Erythema, Furuncle, Hirsutism, Lesions, New Lesions, Non-Healing Lesions, Photosensitivity, Pruritus, Rash, Skin Pain, Skin Ulcer, Sores, Striae, Swelling, Unusual Bruising, Wounds, Jaundice, Other - Neurological Neurological: As Per HPI - Psychiatric Psychiatric: As Per HPI - Endocrine Endocrine: absent: As Per HPI, Change in Body Appearance, Change in Libido, Cold Intolorance, Deepening of Voice, Excessive Sweating, Fatigue, Flushing, Heat Intolorance, Increase in Ring/Shoe/Hat Size, Palpitations, Polydipsia, Polyphagia, Polyuria, Other - Hematologic/Lymphatic Hematologic: absent: As Per HPI, Easy Bleeding, Easy Bruising, Lymphadenopathy, Other Past Patient History - Infectious Disease Hx of Infectious Diseases: None - Tetanus Immunizations Tetanus Immunization: Unknown - Past Medical History & Family History Past Medical History?: Yes - Past Social History Smoking Status: Never Smoked - CARDIAC Hx Cardiac Disorders: Yes Hx Atrial Fibrillation: No Hx Cardia Arrhythmia: No Hx Congestive Heart Failure: Yes Hx Hypercholesterolemia: Yes Hx Hypertension: Yes Hx Mitral Valve Prolapse: No Hx Pacemaker: No Hx Peripheral Edema: Yes (occasional lower extremities) - PULMONARY Hx Respiratory Disorders: No - NEUROLOGICAL Hx Neurological Disorder: Yes Hx Alzheimer's Disease: Yes HX Cerebrovascular Accident: Yes Hx Dementia: Yes Hx Migraine: Yes Hx Multiple Sclerosis: No Hx Parkinson's Disease: No Hx Seizures: No Hx Transient Ischemic Attacks (TIA): Yes - HEENT Hx HEENT Problems: Yes Hx Blind: No Hx Cataracts: Yes Hx Deafness: No Hx Difficulty Chewing: No Hx Epistaxis: No Hx Glaucoma: Yes Hx Macular Degeneration: No Other/Comment: corneal transplant - RENAL Hx Chronic Kidney Disease: No - ENDOCRINE/METABOLIC Hx Endocrine Disorders: Yes Hx Diabetes Mellitus Type 2: Yes Hx Hypothyroidism: Yes - HEMATOLOGICAL/ONCOLOGICAL Hx Blood Disorders: Yes Hx AIDS: No Hx Anemia: Yes Hx Human Immunodeficiency Virus (HIV): No - INTEGUMENTARY Hx Dermatological Problems: No Hx Basil Cell: No Hx Duke: No Hx Cellulitis: No Hx Eczema: No Hx Melanoma: No Hx Psoriasis: No Hx Squamous Cell: No - MUSCULOSKELETAL/RHEUMATOLOGICAL Hx Musculoskeletal Disorders: No Hx Falls: No - GASTROINTESTINAL Hx Gastrointestinal Disorders: Yes Hx Crohn's Disease: No Hx Diverticulitis: Yes (Diverticulosis) Hx Gall Bladder Disease: No Hx Gastritis: Yes Hx Pancreatitis: No - GENITOURINARY/GYNECOLOGICAL Hx Genitourinary Disorders: No Hx Sexually Transmitted Disorders: No - PSYCHIATRIC Hx Psychophysiologic Disorder: Yes Hx Anxiety: Yes Hx Substance Use: No - SURGICAL HISTORY Hx Surgeries: Yes Hx Appendectomy: No Hx Carotid Endarterectomy: No Hx Cholecystectomy: No Hx Coronary Artery Bypass Graft: No Hx Coronary Stent: No Hx Tonsillectomy: Yes (partial thyroidectomy) - ANESTHESIA Hx Anesthesia: Yes Hx Anesthesia Reactions: Yes (HALLUCINATION, CONFUSION) Hx Malignant Hyperthermia: No Meds Allergies/Adverse Reactions: Allergies Allergy/AdvReac Type Severity Reaction Status Date / Time aspirin Allergy NAUSEA Verified 06/22/18 18:35 ciprofloxacin Allergy REDNESS Verified 04/20/18 16:18 Sulfa (Sulfonamide Allergy RASH Verified 06/22/18 18:35 Antibiotics) Iodinated Contrast- Oral and AdvReac VOMITING Verified 06/22/18 18:35 IV Dye metformin AdvReac DIARRHEA Verified 06/22/18 18:35 - Medications Medications: Current Medications Acetaminophen/Butalbital/Caffeine (Fioricet) 1 tab PO Q8H PRN PRN Reason: Migraine headache Artificial Tears (Lacri-Lube) 1 applic OD [facility] Last Admin: 06/24/18 23:50 Dose: 1 applic Artificial Tears (Refresh Opth Soln) 1 ml OS TID [facility] Last Admin: 06/25/18 16:47 Dose: 1 drop Atorvastatin Calcium (Lipitor) 40 mg PO [facility] Last Admin: 06/24/18 23:47 Dose: 40 mg Brimonidine Tartrate (Alphagan 0.2% Opht) 1 drop OS Q12H [facility] Last Admin: 06/25/18 14:32 Dose: 1 drop Cholecalciferol (Vitamin D) 1,000 intlu PO DAILY [facility] Last Admin: 06/25/18 09:07 Dose: 1,000 intlu Donepezil HCl (Aricept) 10 mg PO [facility] Last Admin: 06/24/18 23:47 Dose: 10 mg Famotidine (Pepcid) 20 mg PO BID [facility] Last Admin: 06/25/18 16:46 Dose: 20 mg Glipizide (Glucotrol Xl) 2.5 mg PO BRK [facility] Last Admin: 06/25/18 08:59 Dose: 2.5 mg Home Med (Cyclosporine [Restasis]) 1 drop LEFTEYE Q12H [facility] Pantoprazole Sodium 40 mg/ (Sodium Chloride) 100 mls @ 20 mls/hr IVPB Q5H [facility] Last Admin: 06/25/18 18:49 Dose: Not Given Vancomycin HCl 1 gm/ Sodium (Chloride) 250 mls @ 166.667 mls/hr IVPB DAILY@2200 [facility]; Protocol Last Admin: 06/24/18 22:30 Dose: 166.667 mls/hr Ceftriaxone Sodium 1 gm/ (Sodium Chloride) 100 mls @ 100 mls/hr IVPB DAILY [facility]; Protocol Last Admin: 06/25/18 12:55 Dose: 100 mls/hr Insulin Human Regular (Humulin R) 0 units SC ACCU-CHECK [facility]; Protocol Last Admin: 06/25/18 16:45 Dose: Not Given Latanoprost (Xalatan Opht) 1 drop OS HS [facility] Last Admin: 06/24/18 23:48 Dose: 1 drop Levothyroxine Sodium (Synthroid) 75 mcg PO DAILY@0630 [facility] Last Admin: 06/25/18 06:09 Dose: 75 mcg Meclizine HCl (Antivert) 25 mg PO TID PRN PRN Reason: Dizziness Memantine (Namenda) 10 mg PO Q12 [facility] Last Admin: 06/25/18 09:00 Dose: 10 mg Metoprolol Tartrate (Lopressor) 12.5 mg PO DAILY PRN PRN Reason: SBP >139 Nystatin (Nystop Topical Powder) 1 applic TOP TID [facility] Last Admin: 06/25/18 16:46 Dose: 1 applic Prednisolone Acetate (Pred Forte 1% Opht Susp) 1 drop OS QID [facility] Last Admin: 06/25/18 16:47 Dose: 1 drop Ramipril (Altace) 5 mg PO DAILY [facility] Last Admin: 06/25/18 08:58 Dose: 5 mg Risperidone (Risperdal Tab) 0.25 mg PO QAM [facility] Last Admin: 06/25/18 09:05 Dose: 0.25 mg Risperidone (Risperdal Tab) 0.5 mg PO HS [facility] Last Admin: 06/24/18 23:47 Dose: 0.5 mg Sertraline HCl (Zoloft) 50 mg PO HS [facility] Last Admin: 06/24/18 23:47 Dose: 50 mg Sitagliptin Phosphate (Januvia) 100 mg PO DAILY [facility] Last Admin: 06/25/18 08:59 Dose: 100 mg Timolol Maleate (Timoptic 0.5% Ophth Soln) 1 drop OS Q12H [facility] Last Admin: 06/25/18 14:34 Dose: 1 drop Physical Exam - Constitutional Appears: Cachectic, Chronically Ill - Head Exam Head Exam: ATRAUMATIC, NORMOCEPHALIC - Eye Exam Eye Exam: absent: Scleral icterus - ENT Exam ENT Exam: Mucous Membranes Dry - Neck Exam Neck exam: Negative for: Lymphadenopathy - Respiratory Exam Respiratory Exam: Decreased Breath Sounds - Cardiovascular Exam Cardiovascular Exam: REGULAR RHYTHM, +S1, +S2 - GI/Abdominal Exam GI & Abdominal Exam: Diminished Bowel Sounds, Soft. absent: Tenderness - Rectal Exam Rectal Exam: Deferred - Exam Exam: NORMAL INSPECTION - Extremities Exam Extremities exam: Positive for: pedal edema - Back Exam Back exam: absent: CVA tenderness (L), CVA tenderness (R) - Neurological Exam Neurological exam: Alert, Altered Additional comments: blind both eyes - Psychiatric Exam Psychiatric exam: Depressed - Skin Skin Exam: Dry Results - Vital Signs Recent Vital Signs: Last Vital Signs Temp 97.6 F 06/25/18 18:53 Pulse 73 06/25/18 18:53 Resp 18 06/25/18 18:53 BP 130/63 06/25/18 18:53 Pulse Ox 98 06/25/18 15:58 - Labs Result Diagrams: 06/26/18 04:25 06/26/18 04:25 Labs: Laboratory Results - last 24 hr 06/24/18 06/25/18 06/25/18 21:58 05:08 06:00 WBC 8.4 RBC 2.36 L Hgb 6.9 L Hct 21.2 L MCV 89.8 MCH 29.3 MCHC 32.7 L RDW 15.1 H Plt Count 219 Sodium Potassium Chloride Carbon Dioxide Anion Gap BUN Creatinine Est GFR ( Amer) Est GFR (Non-Af Amer) POC Glucose (mg/dL) 327 H 262 H Random Glucose Calcium Blood Type Antibody Screen Crossmatch BBK History Checked 06/25/18 06/25/18 06/25/18 08:28 08:28 08:28 WBC 9.4 RBC 2.66 L Hgb 7.9 L Hct 24.4 L MCV 91.9 D MCH 29.6 MCHC 32.2 L RDW 14.9 H Plt Count 245 Sodium 138 Potassium 2.8 L Chloride 105 Carbon Dioxide 24 Anion Gap 12 BUN 23 H Creatinine 0.7 Est GFR ( Amer) > 60 Est GFR (Non-Af Amer) > 60 POC Glucose (mg/dL) Random Glucose 175 H Calcium 8.3 L Blood Type A POSITIVE Antibody Screen Negative Crossmatch See Detail BBK History Checked Patient has bt 06/25/18 06/25/18 11:06 16:29 WBC RBC Hgb Hct MCV MCH MCHC RDW Plt Count Sodium Potassium Chloride Carbon Dioxide Anion Gap BUN Creatinine Est GFR ( Amer) Est GFR (Non-Af Amer) POC Glucose (mg/dL) 161 H 111 H Random Glucose Calcium Blood Type Antibody Screen Crossmatch BBK History Checked Assessment & Plan (1) Sepsis Status: Acute (2) Urinary tract infection Status: Acute (3) Diabetes mellitus type 2 in obese Status: Acute (4) ESBL (extended spectrum beta-lactamase) producing bacteria infection Status: Acute (5) History of ESBL E. coli infection Status: Acute (6) Infection due to ESBL-producing Escherichia coli Status: Acute (7) Urinary retention Status: Acute (8) Urinary tract infection Status: Acute - Assessment and Plan (Free Text) Assessment: consider / [employer] eval iv antibiotics min 14 days for UTI sepsis poor prognosis
[2018-06-25] MEDS: Latanoprost 0.005% Opht SOUTION OS SCH (21:38)
[2018-06-25] MEDS: Mineral Oil/White Petrolatum Ophth Oint OD SCH (21:40)
[2018-06-26] MEDS: Brimonidine 0.2% 50 DROP/5 ML BOTTLE OS SCH ×2 (02:33→15:26)
[2018-06-26] MEDS: Pantoprazole 40 MG in Sodium Chloride 0.9% 100 ML IVPB SCH ×2 (04:45→04:46)
[2018-06-26 05:40] LABS: MEAN CORPUSCULAR HEMOGLOBIN 29.7 pg (27.0-31.0); MEAN CORPUSCULAR HGB CONC 33.8 g/dL (33.0-37.0); RBC 4.04 Mil/uL (3.80-5.20); RED CELL DISTRIBUTION WIDTH 15.1 % (11.5-14.5); WHITE BLOOD COUNT 9.1 K/uL (4.8-10.8)
[2018-06-26 05:54] LABS: BLOOD UREA NITROGEN 15 mg/dl (7-17); CALCIUM 8.5 mg/dL (8.4-10.2); GFR NON-AFRICAN AMERICAN > 60
[2018-06-26] MEDS: Levothyroxine 75 MCG TAB PO SCH (06:15)
--- NOTE | 2018-06-26 08:29 | CP.PCM.HP ---
History of Present Illness - History of Present Illness History of Present Illness: This is an 82 y/o female with hx of frequent hospitalizations for hypoglycemia , UTI change in mental status , brought by daughter due to increasing lethargy and hypoglycemia. Daughter claims that she had taken her meals and that insulin was not given to her due to normal FBS, She beacme progressively lethargic and noted hypoglycemia hence was brought to ER, She had coffee ground vomitus . She had been complaining of epigastric discomfort in the past few days. Hgb was 10 , Past Hx DM 2 uncontrolled blindness UTI HTN CAD TIA Currently on Plavix Present on Admission - Present on Admission Any Indicators Present on Admission: No History of DVT/PE: No History of Uncontrolled Diabetes: Yes Urinary Catheter: No Decubitus Ulcer Present: No Review of Systems - Gastrointestinal Gastrointestinal: Coffee Ground Emesis, Heartburn - Genitourinary Genitourinary: Difficulty Urinating, Dysuria Past Patient History - Infectious Disease Hx of Infectious Diseases: None - Tetanus Immunizations Tetanus Immunization: Unknown - Past Medical History & Family History Past Medical History?: Yes - Past Social History Smoking Status: Never Smoked - CARDIAC Hx Cardiac Disorders: Yes Hx Atrial Fibrillation: No Hx Cardia Arrhythmia: No Hx Congestive Heart Failure: Yes Hx Hypercholesterolemia: Yes Hx Hypertension: Yes Hx Mitral Valve Prolapse: No Hx Pacemaker: No Hx Peripheral Edema: Yes (occasional lower extremities) - PULMONARY Hx Respiratory Disorders: No - NEUROLOGICAL Hx Neurological Disorder: Yes Hx Alzheimer's Disease: Yes HX Cerebrovascular Accident: Yes Hx Dementia: Yes Hx Migraine: Yes Hx Multiple Sclerosis: No Hx Parkinson's Disease: No Hx Seizures: No Hx Transient Ischemic Attacks (TIA): Yes - HEENT Hx HEENT Problems: Yes Hx Blind: No Hx Cataracts: Yes Hx Deafness: No Hx Difficulty Chewing: No Hx Epistaxis: No Hx Glaucoma: Yes Hx Macular Degeneration: No Other/Comment: corneal transplant - RENAL Hx Chronic Kidney Disease: No - ENDOCRINE/METABOLIC Hx Endocrine Disorders: Yes Hx Diabetes Mellitus Type 2: Yes Hx Hypothyroidism: Yes - HEMATOLOGICAL/ONCOLOGICAL Hx Blood Disorders: Yes Hx AIDS: No Hx Anemia: Yes Hx Human Immunodeficiency Virus (HIV): No - INTEGUMENTARY Hx Dermatological Problems: No Hx Basil Cell: No Hx Duke: No Hx Cellulitis: No Hx Eczema: No Hx Melanoma: No Hx Psoriasis: No Hx Squamous Cell: No - MUSCULOSKELETAL/RHEUMATOLOGICAL Hx Musculoskeletal Disorders: No Hx Falls: No - GASTROINTESTINAL Hx Gastrointestinal Disorders: Yes Hx Crohn's Disease: No Hx Diverticulitis: Yes (Diverticulosis) Hx Gall Bladder Disease: No Hx Gastritis: Yes Hx Pancreatitis: No - GENITOURINARY/GYNECOLOGICAL Hx Genitourinary Disorders: No Hx Sexually Transmitted Disorders: No - PSYCHIATRIC Hx Psychophysiologic Disorder: Yes Hx Anxiety: Yes Hx Substance Use: No - SURGICAL HISTORY Hx Surgeries: Yes Hx Appendectomy: No Hx Carotid Endarterectomy: No Hx Cholecystectomy: No Hx Coronary Artery Bypass Graft: No Hx Coronary Stent: No Hx Tonsillectomy: Yes (partial thyroidectomy) - ANESTHESIA Hx Anesthesia: Yes Hx Anesthesia Reactions: Yes (HALLUCINATION, CONFUSION) Hx Malignant Hyperthermia: No Meds Allergies/Adverse Reactions: Allergies Allergy/AdvReac Type Severity Reaction Status Date / Time aspirin Allergy NAUSEA Verified 06/22/18 18:35 ciprofloxacin Allergy REDNESS Verified 04/20/18 16:18 Sulfa (Sulfonamide Allergy RASH Verified 06/22/18 18:35 Antibiotics) Iodinated Contrast- Oral and AdvReac VOMITING Verified 06/22/18 18:35 IV Dye metformin AdvReac DIARRHEA Verified 06/22/18 18:35 Physical Exam - Head Exam Head Exam: NORMAL INSPECTION - ENT Exam ENT Exam: Mucous Membranes Moist - Respiratory Exam Respiratory Exam: Clear to Auscultation Bilateral - Cardiovascular Exam Cardiovascular Exam: Irregular Rhythm - GI/Abdominal Exam GI & Abdominal Exam: Normal Bowel Sounds - Neurological Exam Neurological exam: Altered Results - Vital Signs Recent Vital Signs: Last Vital Signs Temp 97.4 F L 06/26/18 08:18 Pulse 71 06/26/18 08:18 Resp 18 06/26/18 08:18 BP 186/98 H 06/26/18 08:18 Pulse Ox 98 06/26/18 08:18 - Labs Result Diagrams: 06/26/18 04:25 06/26/18 04:25 Labs: Laboratory Results - last 24 hr 06/25/18 06/25/18 06/25/18 08:28 08:28 08:28 WBC 9.4 RBC 2.66 L Hgb 7.9 L Hct 24.4 L MCV 91.9 D MCH 29.6 MCHC 32.2 L RDW 14.9 H Plt Count 245 Sodium 138 Potassium 2.8 L Chloride 105 Carbon Dioxide 24 Anion Gap 12 BUN 23 H Creatinine 0.7 Est GFR ( Amer) > 60 Est GFR (Non-Af Amer) > 60 POC Glucose (mg/dL) Random Glucose 175 H Calcium 8.3 L Blood Type A POSITIVE Antibody Screen Negative Crossmatch See Detail BBK History Checked Patient has bt 06/25/18 06/25/18 06/25/18 11:06 16:29 21:39 WBC RBC Hgb Hct MCV MCH MCHC RDW Plt Count Sodium Potassium Chloride Carbon Dioxide Anion Gap BUN Creatinine Est GFR ( Amer) Est GFR (Non-Af Amer) POC Glucose (mg/dL) 161 H 111 H 199 H Random Glucose Calcium Blood Type Antibody Screen Crossmatch BBK History Checked 06/26/18 06/26/18 06/26/18 04:25 04:25 05:28 WBC 9.1 RBC 4.04 Hgb 12.0 D Hct 35.6 MCV 88.0 D MCH 29.7 MCHC 33.8 RDW 15.1 H Plt Count 252 Sodium 137 Potassium 3.0 L Chloride 101 Carbon Dioxide 26 Anion Gap 13 BUN 15 Creatinine 0.7 Est GFR ( Amer) > 60 Est GFR (Non-Af Amer) > 60 POC Glucose (mg/dL) 147 H Random Glucose 153 H Calcium 8.5 Blood Type Antibody Screen Crossmatch BBK History Checked Assessment & Plan (1) Acute upper GI bleed Status: Acute (2) Urinary tract infection Status: Acute (3) Altered mental status Status: Acute Priority: High (4) Hypoglycemia Status: Acute (5) Diabetes mellitus type 2 in obese Status: Acute (6) ESBL (extended spectrum beta-lactamase) producing bacteria infection Status: Acute - Assessment and Plan (Free Text) Plan: Iv hydration monitor CBC check urine start IV antibiotics ID consult telemetry may need transfusion if bleed continues GI eval
--- NOTE | 2018-06-26 08:37 | CP.PCM.PN ---
Subjective - Date & Time of Evaluation Date of Evaluation: 06/24/18 Time of Evaluation: 11:00 - Subjective Subjective: Noted lower Hgb Has no abd pain Has no fever On rocephin No C and S results yet. Objective - Vital Signs/Intake and Output Vital Signs (last 24 hours): Temp Pulse Resp BP Pulse Ox 97.4 F L 71 18 186/98 H 98 06/26/18 08:18 06/26/18 08:18 06/26/18 08:18 06/26/18 08:18 06/26/18 08:18 Intake and Output: 06/26/18 06/26/18 06:59 18:59 Intake Total 605 Balance 605 - Medications Medications: Current Medications Acetaminophen/Butalbital/Caffeine (Fioricet) 1 tab PO Q8H PRN PRN Reason: Migraine headache Artificial Tears (Lacri-Lube) 1 applic OD [facility] Last Admin: 06/25/18 21:40 Dose: 1 applic Artificial Tears (Refresh Opth Soln) 1 ml OS TID [facility] Last Admin: 06/25/18 16:47 Dose: 1 drop Atorvastatin Calcium (Lipitor) 40 mg PO [facility] Last Admin: 06/25/18 21:37 Dose: 40 mg Brimonidine Tartrate (Alphagan 0.2% Opht) 1 drop OS Q12H [facility] Last Admin: 06/26/18 02:33 Dose: 1 drop Cholecalciferol (Vitamin D) 1,000 intlu PO DAILY [facility] Last Admin: 06/25/18 09:07 Dose: 1,000 intlu Donepezil HCl (Aricept) 10 mg PO [facility] Last Admin: 06/25/18 21:37 Dose: 10 mg Famotidine (Pepcid) 20 mg PO BID [facility] Last Admin: 06/25/18 16:46 Dose: 20 mg Glipizide (Glucotrol Xl) 2.5 mg PO BRK [facility] Last Admin: 06/25/18 08:59 Dose: 2.5 mg Home Med (Cyclosporine [Restasis]) 1 drop LEFTEYE Q12H [facility] Pantoprazole Sodium 40 mg/ (Sodium Chloride) 100 mls @ 20 mls/hr IVPB Q5H [facility] Last Admin: 06/26/18 04:46 Dose: 20 mls/hr Ceftriaxone Sodium 1 gm/ (Sodium Chloride) 100 mls @ 100 mls/hr IVPB DAILY [facility]; Protocol Last Admin: 06/25/18 12:55 Dose: 100 mls/hr Insulin Human Regular (Humulin R) 0 units SC ACCU-CHECK [facility]; Protocol Last Admin: 06/25/18 23:00 Dose: Not Given Latanoprost (Xalatan Opht) 1 drop OS HS [facility] Last Admin: 06/25/18 21:38 Dose: 1 drop Levothyroxine Sodium (Synthroid) 75 mcg PO DAILY@0630 [facility] Last Admin: 06/26/18 06:15 Dose: 75 mcg Meclizine HCl (Antivert) 25 mg PO TID PRN PRN Reason: Dizziness Memantine (Namenda) 10 mg PO Q12 [facility] Last Admin: 06/25/18 21:37 Dose: 10 mg Metoprolol Tartrate (Lopressor) 12.5 mg PO DAILY PRN PRN Reason: SBP >139 Last Admin: 06/26/18 04:50 Dose: 12.5 mg Nystatin (Nystop Topical Powder) 1 applic TOP TID [facility] Last Admin: 06/25/18 16:46 Dose: 1 applic Prednisolone Acetate (Pred Forte 1% Opht Susp) 1 drop OS QID [facility] Last Admin: 06/25/18 21:38 Dose: 1 drop Ramipril (Altace) 5 mg PO DAILY [facility] Last Admin: 06/25/18 08:58 Dose: 5 mg Risperidone (Risperdal Tab) 0.25 mg PO QAM [facility] Last Admin: 06/25/18 09:05 Dose: 0.25 mg Risperidone (Risperdal Tab) 0.5 mg PO HS [facility] Last Admin: 06/25/18 21:37 Dose: 0.5 mg Sertraline HCl (Zoloft) 50 mg PO HS [facility] Last Admin: 06/25/18 21:37 Dose: 50 mg Sitagliptin Phosphate (Januvia) 100 mg PO DAILY [facility] Last Admin: 06/25/18 08:59 Dose: 100 mg Timolol Maleate (Timoptic 0.5% Ophth Soln) 1 drop OS Q12H [facility] Last Admin: 06/26/18 02:38 Dose: 1 drop - Labs Labs: 06/26/18 04:25 06/26/18 04:25 PT 11.9 Seconds (9.8-13.1) 06/22/18 20:43 INR 1.0 06/22/18 20:43 APTT 29.5 Seconds (25.6-37.1) 06/22/18 20:43 - Head Exam Head Exam: NORMAL INSPECTION - ENT Exam ENT Exam: Mucous Membranes Moist - Respiratory Exam Respiratory Exam: Clear to Ausculation Bilateral - Cardiovascular Exam Cardiovascular Exam: REGULAR RHYTHM - GI/Abdominal Exam GI & Abdominal Exam: Normal Bowel Sounds Assessment and Plan (1) Acute upper GI bleed Status: Acute (2) Urinary tract infection Status: Acute (3) Altered mental status Status: Acute (4) Hypoglycemia Status: Acute (5) Diabetes mellitus type 2 in obese Status: Acute (6) ESBL (extended spectrum beta-lactamase) producing bacteria infection Status: Acute - Assessment and Plan (Free Text) Plan: Cont meds Cont tx Follow up ID cont meds may need transfusion
[2018-06-26] MEDS: GlipiZIDE 2.5 mg SR Tab PO SCH (08:52)
[2018-06-26] MEDS: PrednisoLONE 1% OPTH SUSP OS SCH ×4 (08:52→22:05)
[2018-06-26] MEDS: Cholecalciferol 1,000 INTLU TAB PO SCH (08:53)
[2018-06-26] MEDS: Lubricant Eye Drops UD OS SCH ×3 (08:54→16:27)
[2018-06-26] MEDS: Insulin Regular 100 units/ml SC SCH ×4 (08:57→22:06)
--- NOTE | 2018-06-26 09:04 | CP.PCM.PN ---
Subjective - Date & Time of Evaluation Date of Evaluation: 06/24/18 Time of Evaluation: 11:20 - Subjective Subjective: Noted lower hgb Has been stable otherwise On Rocephin Has hx of ESBL Objective - Vital Signs/Intake and Output Vital Signs (last 24 hours): Temp Pulse Resp BP Pulse Ox 97.4 F L 71 18 168/98 H 98 06/26/18 08:18 06/26/18 08:18 06/26/18 08:18 06/26/18 08:52 06/26/18 08:18 Intake and Output: 06/26/18 06/26/18 06:59 18:59 Intake Total 605 Balance 605 - Medications Medications: Current Medications Acetaminophen/Butalbital/Caffeine (Fioricet) 1 tab PO Q8H PRN PRN Reason: Migraine headache Artificial Tears (Lacri-Lube) 1 applic OD [facility] Last Admin: 06/25/18 21:40 Dose: 1 applic Artificial Tears (Refresh Opth Soln) 1 ml OS TID [facility] Last Admin: 06/26/18 08:54 Dose: 1 drop Atorvastatin Calcium (Lipitor) 40 mg PO [facility] Last Admin: 06/25/18 21:37 Dose: 40 mg Brimonidine Tartrate (Alphagan 0.2% Opht) 1 drop OS Q12H [facility] Last Admin: 06/26/18 02:33 Dose: 1 drop Cholecalciferol (Vitamin D) 1,000 intlu PO DAILY [facility] Last Admin: 06/26/18 08:53 Dose: 1,000 intlu Donepezil HCl (Aricept) 10 mg PO [facility] Last Admin: 06/25/18 21:37 Dose: 10 mg Famotidine (Pepcid) 20 mg PO BID [facility] Last Admin: 06/26/18 08:53 Dose: 20 mg Glipizide (Glucotrol Xl) 2.5 mg PO BRK [facility] Last Admin: 06/26/18 08:52 Dose: 2.5 mg Home Med (Cyclosporine [Restasis]) 1 drop LEFTEYE Q12H [facility] Pantoprazole Sodium 40 mg/ (Sodium Chloride) 100 mls @ 20 mls/hr IVPB Q5H [facility] Last Admin: 06/26/18 04:46 Dose: 20 mls/hr Meropenem 500 mg/ Sodium (Chloride) 100 mls @ 100 mls/hr IVPB Q8 [facility]; Protocol Insulin Human Regular (Humulin R) 0 units SC ACCU-CHECK [facility]; Protocol Last Admin: 06/26/18 08:57 Dose: Not Given Latanoprost (Xalatan Opht) 1 drop OS HS [facility] Last Admin: 06/25/18 21:38 Dose: 1 drop Levothyroxine Sodium (Synthroid) 75 mcg PO DAILY@0630 [facility] Last Admin: 06/26/18 06:15 Dose: 75 mcg Meclizine HCl (Antivert) 25 mg PO TID PRN PRN Reason: Dizziness Memantine (Namenda) 10 mg PO Q12 [facility] Last Admin: 06/26/18 08:53 Dose: 10 mg Metoprolol Tartrate (Lopressor) 12.5 mg PO DAILY PRN PRN Reason: SBP >139 Last Admin: 06/26/18 04:50 Dose: 12.5 mg Nystatin (Nystop Topical Powder) 1 applic TOP TID [facility] Last Admin: 06/26/18 08:51 Dose: 1 applic Potassium Chloride (Potassium Chloride Oral Soln) 40 meq PO ONCE ONE Stop: 06/26/18 08:41 Prednisolone Acetate (Pred Forte 1% Opht Susp) 1 drop OS QID [facility] Last Admin: 06/26/18 08:52 Dose: 1 drop Ramipril (Altace) 5 mg PO DAILY [facility] Last Admin: 06/26/18 08:52 Dose: 5 mg Risperidone (Risperdal Tab) 0.25 mg PO QAM [facility] Last Admin: 06/26/18 08:54 Dose: 0.25 mg Risperidone (Risperdal Tab) 0.5 mg PO [facility] Last Admin: 06/25/18 21:37 Dose: 0.5 mg Sertraline HCl (Zoloft) 50 mg PO [facility] Last Admin: 06/25/18 21:37 Dose: 50 mg Sitagliptin Phosphate (Januvia) 100 mg PO DAILY [facility] Last Admin: 06/26/18 08:52 Dose: 100 mg Timolol Maleate (Timoptic 0.5% Ophth Soln) 1 drop OS Q12H [facility] Last Admin: 06/26/18 02:38 Dose: 1 drop - Labs Labs: 06/26/18 04:25 06/26/18 04:25 PT 11.9 Seconds (9.8-13.1) 06/22/18 20:43 INR 1.0 06/22/18 20:43 APTT 29.5 Seconds (25.6-37.1) 06/22/18 20:43 - Head Exam Head Exam: NORMAL INSPECTION - Eye Exam Eye Exam: Normal appearance - ENT Exam ENT Exam: Mucous Membranes Moist - Respiratory Exam Respiratory Exam: Decreased Breath Sounds - Cardiovascular Exam Cardiovascular Exam: REGULAR RHYTHM Assessment and Plan (1) Acute upper GI bleed Status: Acute (2) Urinary tract infection Status: Acute (3) Altered mental status Status: Acute (4) Hypoglycemia Status: Acute (5) Diabetes mellitus type 2 in obese Status: Acute (6) ESBL (extended spectrum beta-lactamase) producing bacteria infection Status: Acute - Assessment and Plan (Free Text) Plan: Cont meds Cont tx call ID may need switch in antibiotics monitor cbc follow up with GI
[2018-06-26] MEDS ORDERED: Potassium Chloride 20 mEq/15 ml LIQ UD PO ONE (09:30)
[2018-06-26] MEDS: Meropenem 500 MG in Sodium Chloride 0.9% 100 ML IVPB SCH ×2 (10:49→16:26)
[2018-06-26] MEDS ORDERED: Lidocaine 1% Inj (20ml) ONE (12:52)
[2018-06-26] MEDS: Fluconazole IV 100mg/50 ml NS 50 ML IVPB SCH (13:49)
--- NOTE | 2018-06-26 14:04 | PCM.SURG1 ---
Surgeon's Initial Post Op Note - Surgeon's Notes Surgeon: Marques Mena MD Chart Computer: NONE Type of Anesthesia: Local Pre-Operative Diagnosis: Infection Operative Findings: US showed patent right basilic vein Post-Operative Diagnosis: Infection Operation Performed: Single lumen picc right arm, 35 CM. Tip in SVC Specimen/Specimens Removed: NONE Estimated Blood Loss: EBL {In ML}: 2 Blood Products Given: N/A Drains Used: No Drains Post-Op Condition: Fair Date of Surgery/Procedure: 06/26/18 Time of Surgery/Procedure: 13:40
--- NOTE | 2018-06-26 14:10 | VASCULAR ---
PROCEDURE: Date of procedure: 06/26/2018 Procedure: 1. Placement of a right arm PICC with ultrasound and fluoroscopic guidance, CPT 84400 2. PICC tip confirmation with spot radiograph and is in the superior vena cava Medications: 1 percent lidocaine Total Fluoro time: 8.7 Seconds Radiation:.88 MGy EBL: 2 cc HISTORY: Infection requiring long-term IV antibiotics TECHNIQUE: Following informed consent and procedure time-out, the patient was placed supine on the interventional table and the right arm prepped and draped in the usual sterile fashion. Ultrasound showed a patent and compressible right basilic vein. After the skin was anesthetized with lidocaine, the basilic vein was accessed with micro micropuncture technique using ultrasound guidance. A guidewire was then advanced under fluoroscopic guidance into the superior vena cava. An image documenting ultrasound guidance for vascular access was permanently saved. The length of the single-lumen 4 Uzbek PICC was trimmed to 35 centimeters and advanced through a peel-away sheath. The PICC was position with tip of PICC confirm a spot radiograph the superior vena cava. The PICC was secured to the patient's skin. The PICC was flushed. A biopatch and sterile dressing was applied. IMPRESSION: Placement of a single-lumen 4 Uzbek PICC trimmed to 35 centimeters via right basilic vein. The tip of the PICC is confirmed with spot radiograph and is in the superior vena cava.
--- NOTE | 2018-06-26 15:03 | CP.PCM.PN ---
Subjective - Date & Time of Evaluation Date of Evaluation: 06/26/18 Time of Evaluation: 09:00 - Subjective Subjective: less confused had PICC placed afebrile Objective - Vital Signs/Intake and Output Vital Signs (last 24 hours): Temp Pulse Resp BP Pulse Ox 98.4 F 64 16 158/70 H 97 06/26/18 12:34 06/26/18 13:27 06/26/18 13:27 06/26/18 13:27 06/26/18 12:12 Intake and Output: 06/26/18 06/26/18 06:59 18:59 Intake Total 605 Balance 605 - Medications Medications: Current Medications Acetaminophen/Butalbital/Caffeine (Fioricet) 1 tab PO Q8H PRN PRN Reason: Migraine headache Artificial Tears (Lacri-Lube) 1 applic OD HS [facility] Last Admin: 06/25/18 21:40 Dose: 1 applic Artificial Tears (Refresh Opth Soln) 1 ml OS TID [facility] Last Admin: 06/26/18 13:51 Dose: 1 drop Atorvastatin Calcium (Lipitor) 40 mg PO HS [facility] Last Admin: 06/25/18 21:37 Dose: 40 mg Brimonidine Tartrate (Alphagan 0.2% Opht) 1 drop OS Q12H [facility] Last Admin: 06/26/18 02:33 Dose: 1 drop Cholecalciferol (Vitamin D) 1,000 intlu PO DAILY [facility] Last Admin: 06/26/18 08:53 Dose: 1,000 intlu Donepezil HCl (Aricept) 10 mg PO HS [facility] Last Admin: 06/25/18 21:37 Dose: 10 mg Famotidine (Pepcid) 20 mg PO BID [facility] Last Admin: 06/26/18 08:53 Dose: 20 mg Glipizide (Glucotrol Xl) 2.5 mg PO BRK [facility] Last Admin: 06/26/18 08:52 Dose: 2.5 mg Home Med (Cyclosporine [Restasis]) 1 drop LEFTEYE Q12H [facility] Meropenem 500 mg/ Sodium (Chloride) 100 mls @ 100 mls/hr IVPB Q8 [facility]; Protocol Last Admin: 06/26/18 10:49 Dose: 100 mls/hr Fluconazole (Diflucan Iv 100 Mg/50 Ml Ns) 50 mls @ 50 mls/hr IVPB DAILY [facility]; Protocol Last Admin: 06/26/18 13:49 Dose: 50 mls/hr Insulin Human Regular (Humulin R) 0 units SC ACCU-CHECK [facility]; Protocol Last Admin: 06/26/18 13:51 Dose: 1 units Latanoprost (Xalatan Opht) 1 drop OS HS [facility] Last Admin: 06/25/18 21:38 Dose: 1 drop Levothyroxine Sodium (Synthroid) 75 mcg PO DAILY@0630 [facility] Last Admin: 06/26/18 06:15 Dose: 75 mcg Meclizine HCl (Antivert) 25 mg PO TID PRN PRN Reason: Dizziness Memantine (Namenda) 10 mg PO Q12 [facility] Last Admin: 06/26/18 08:53 Dose: 10 mg Metoprolol Tartrate (Lopressor) 12.5 mg PO DAILY PRN PRN Reason: SBP >139 Last Admin: 06/26/18 04:50 Dose: 12.5 mg Nystatin (Nystop Topical Powder) 1 applic TOP TID [facility] Last Admin: 06/26/18 13:50 Dose: 1 applic Prednisolone Acetate (Pred Forte 1% Opht Susp) 1 drop OS QID [facility] Last Admin: 06/26/18 13:50 Dose: 1 drop Ramipril (Altace) 5 mg PO DAILY [facility] Last Admin: 06/26/18 08:52 Dose: 5 mg Risperidone (Risperdal Tab) 0.25 mg PO QAM [facility] Last Admin: 06/26/18 08:54 Dose: 0.25 mg Risperidone (Risperdal Tab) 0.5 mg PO [facility] Last Admin: 06/25/18 21:37 Dose: 0.5 mg Sertraline HCl (Zoloft) 50 mg PO [facility] Last Admin: 06/25/18 21:37 Dose: 50 mg Sitagliptin Phosphate (Januvia) 100 mg PO DAILY [facility] Last Admin: 06/26/18 08:52 Dose: 100 mg Timolol Maleate (Timoptic 0.5% Ophth Soln) 1 drop OS Q12H [facility] Last Admin: 06/26/18 02:38 Dose: 1 drop - Labs Labs: 06/26/18 04:25 06/26/18 04:25 PT 11.9 Seconds (9.8-13.1) 06/22/18 20:43 INR 1.0 06/22/18 20:43 APTT 29.5 Seconds (25.6-37.1) 06/22/18 20:43 - Constitutional Appears: Non-toxic, Chronically Ill - Head Exam Head Exam: NORMOCEPHALIC - Eye Exam Eye Exam: absent: Scleral icterus - ENT Exam ENT Exam: Mucous Membranes Dry - Neck Exam Neck Exam: absent: Lymphadenopathy - Respiratory Exam Respiratory Exam: Decreased Breath Sounds - Cardiovascular Exam Cardiovascular Exam: REGULAR RHYTHM - GI/Abdominal Exam GI & Abdominal Exam: Distended, Soft. absent: Tenderness - Rectal Exam Rectal Exam: Deferred - Exam Exam: NORMAL INSPECTION - Extremities Exam Extremities Exam: absent: Pedal Edema - Back Exam Back Exam: absent: CVA tenderness (L), CVA tenderness (R) - Neurological Exam Neurological Exam: Alert, Awake, Motor Sensory Deficit Additional comments: blind - Psychiatric Exam Psychiatric exam: Depressed - Skin Skin Exam: Dry Assessment and Plan (1) Sepsis Status: Acute (2) Urinary tract infection Status: Acute (3) Diabetes mellitus type 2 in obese Status: Acute (4) ESBL (extended spectrum beta-lactamase) producing bacteria infection Status: Acute (5) History of ESBL E. coli infection Status: Acute (6) Infection due to ESBL-producing Escherichia coli Status: Acute (7) Urinary retention Status: Acute (8) Urinary tract infection Status: Acute (9) Parkinsons disease Status: Acute (10) Blindness of both eyes Status: Acute - Assessment and Plan (Free Text) Assessment: cont iv rx as per Dr Lugo
[2018-06-26] MEDS: Latanoprost 0.005% Opht SOUTION OS SCH (22:05)
[2018-06-26] MEDS: Mineral Oil/White Petrolatum Ophth Oint OD SCH (22:05)
[2018-06-27] MEDS: Meropenem 500 MG in Sodium Chloride 0.9% 100 ML IVPB SCH ×3 (01:36→17:07)
[2018-06-27] MEDS: Brimonidine 0.2% 50 DROP/5 ML BOTTLE OS SCH ×2 (01:39→15:10)
[2018-06-27] MEDS: Levothyroxine 75 MCG TAB PO SCH (07:28)
[2018-06-27] MEDS: Insulin Regular 100 units/ml SC SCH ×4 (08:30→23:23)
[2018-06-27] MEDS: GlipiZIDE 2.5 mg SR Tab PO SCH (09:40)
[2018-06-27] MEDS: Fluconazole IV 100mg/50 ml NS 50 ML IVPB SCH (09:40)
[2018-06-27] MEDS: PrednisoLONE 1% OPTH SUSP OS SCH ×4 (09:44→21:35)
[2018-06-27] MEDS: Lubricant Eye Drops UD OS SCH ×3 (09:45→17:11)
[2018-06-27] MEDS: Cholecalciferol 1,000 INTLU TAB PO SCH (09:45)
[2018-06-27] MEDS ORDERED: Simethicone 80 mg Chewtab PO PRN (11:38)
[2018-06-27] MEDS: Potassium Chloride 20 mEq ER Tab PO SCH ×2 (12:15→17:07)
[2018-06-27] MEDS: Latanoprost 0.005% Opht SOUTION OS SCH (21:35)
[2018-06-27] MEDS: Mineral Oil/White Petrolatum Ophth Oint OD SCH (21:35)
[2018-06-28] MEDS: Meropenem 500 MG in Sodium Chloride 0.9% 100 ML IVPB SCH ×3 (01:34→17:34)
[2018-06-28] MEDS: Brimonidine 0.2% 50 DROP/5 ML BOTTLE OS SCH ×2 (01:35→13:27)
[2018-06-28] MEDS: Levothyroxine 75 MCG TAB PO SCH (06:22)
[2018-06-28 06:55] LABS: MEAN CELL VOLUME 87.3 fl (81.0-99.0); MEAN CORPUSCULAR HEMOGLOBIN 29.5 pg (27.0-31.0); MEAN CORPUSCULAR HGB CONC 33.9 g/dL (33.0-37.0); RBC 3.72 Mil/uL (3.80-5.20); RED CELL DISTRIBUTION WIDTH 14.9 % (11.5-14.5); WHITE BLOOD COUNT 7.1 K/uL (4.8-10.8)
[2018-06-28 07:35] LABS: ALB/GLOB RATIO 0.8 (1.0-2.1); ALBUMIN 2.7 g/dL (3.5-5.0); ALT/SGPT 17 U/L (9-52); AST/SGOT 15 U/L (14-36); BLOOD UREA NITROGEN 18 mg/dl (7-17); CALCIUM 8.4 mg/dL (8.4-10.2); GFR NON-AFRICAN AMERICAN > 60
[2018-06-28] MEDS: Insulin Regular 100 units/ml SC SCH ×4 (08:45→22:45)
[2018-06-28] MEDS: GlipiZIDE 2.5 mg SR Tab PO SCH (09:45)
[2018-06-28] MEDS: Potassium Chloride 20 mEq ER Tab PO SCH ×2 (09:45→13:30)
[2018-06-28] MEDS: PrednisoLONE 1% OPTH SUSP OS SCH ×4 (09:45→21:32)
[2018-06-28] MEDS: Lubricant Eye Drops UD OS SCH ×3 (09:47→17:36)
[2018-06-28] MEDS: Fluconazole IV 100mg/50 ml NS 50 ML IVPB SCH (11:02)
[2018-06-28] MEDS: Cholecalciferol 1,000 INTLU TAB PO SCH (11:12)
--- NOTE | 2018-06-28 13:06 | CP.PCM.PN ---
Subjective - Date & Time of Evaluation Date of Evaluation: 06/28/18 Time of Evaluation: 08:00 - Subjective Subjective: arousable nad afebrile Objective - Vital Signs/Intake and Output Vital Signs (last 24 hours): Temp Pulse Resp BP Pulse Ox 98.1 F 74 20 113/61 98 06/28/18 11:56 06/28/18 11:56 06/28/18 11:56 06/28/18 11:56 06/28/18 11:56 - Medications Medications: Current Medications Acetaminophen/Butalbital/Caffeine (Fioricet) 1 tab PO Q8H PRN PRN Reason: Migraine headache Artificial Tears (Lacri-Lube) 1 applic OD HS [facility] Last Admin: 06/27/18 21:35 Dose: 1 applic Artificial Tears (Refresh Opth Soln) 0.3 ml OS TID [facility] Last Admin: 06/28/18 09:47 Dose: 1 drop Atorvastatin Calcium (Lipitor) 40 mg PO HS [facility] Last Admin: 06/27/18 21:34 Dose: 40 mg Brimonidine Tartrate (Alphagan 0.2% Opht) 1 drop OS Q12H [facility] Last Admin: 06/28/18 01:35 Dose: 1 drop Cholecalciferol (Vitamin D) 1,000 intlu PO DAILY [facility] Last Admin: 06/28/18 11:12 Dose: 1,000 intlu Donepezil HCl (Aricept) 10 mg PO HS [facility] Last Admin: 06/27/18 21:34 Dose: 10 mg Famotidine (Pepcid) 20 mg PO BID [facility] Last Admin: 06/28/18 11:09 Dose: 20 mg Glipizide (Glucotrol Xl) 2.5 mg PO BRK [facility] Last Admin: 06/28/18 09:45 Dose: 2.5 mg Meropenem 500 mg/ Sodium (Chloride) 100 mls @ 100 mls/hr IVPB Q8 [facility]; Protocol Last Admin: 06/28/18 11:07 Dose: 100 mls/hr Fluconazole (Diflucan Iv 100 Mg/50 Ml Ns) 50 mls @ 50 mls/hr IVPB DAILY [facility]; Protocol Last Admin: 06/28/18 11:02 Dose: 50 mls/hr Insulin Human Regular (Humulin R) 0 units SC ACCU-CHECK [facility]; Protocol Last Admin: 06/28/18 08:45 Dose: 1 units Latanoprost (Xalatan Opht) 1 drop OS [facility] Last Admin: 06/27/18 21:35 Dose: 1 drop Levothyroxine Sodium (Synthroid) 75 mcg PO DAILY@0630 [facility] Last Admin: 06/28/18 06:22 Dose: 75 mcg Meclizine HCl (Antivert) 25 mg PO TID PRN PRN Reason: Dizziness Memantine (Namenda) 10 mg PO Q12 [facility] Last Admin: 06/28/18 11:08 Dose: 10 mg Metoprolol Tartrate (Lopressor) 12.5 mg PO DAILY PRN PRN Reason: SBP >139 Last Admin: 06/26/18 04:50 Dose: 12.5 mg Nystatin (Nystop Topical Powder) 1 applic TOP TID [facility] Last Admin: 06/28/18 09:45 Dose: 1 applic Pantoprazole Sodium (Protonix Inj) 40 mg IVP DAILY [facility] Last Admin: 06/28/18 11:09 Dose: 40 mg Prednisolone Acetate (Pred Forte 1% Opht Susp) 1 drop OS QID [facility] Last Admin: 06/28/18 09:45 Dose: 1 drop Ramipril (Altace) 5 mg PO DAILY [facility] Last Admin: 06/28/18 11:02 Dose: 5 mg [facility]isperidone ([facility]dal Tab) [facility] [facility] Last Admin: 06/28/18 11:12 Dose: 0.25 mg Risperidone (Risperdal Tab) 0.5 mg PO [facility] Last Admin: 06/27/18 21:34 Dose: 0.5 mg Sertraline HCl (Zoloft) 50 mg PO [facility] Last Admin: 06/27/18 21:35 Dose: 50 mg Simethicone (Mylicon Chew Tab) 80 mg PO [facility] PRN PRN Reason: GI distress Last Admin: 06/27/18 21:39 Dose: 80 mg Sitagliptin Phosphate (Januvia) 100 mg PO DAILY [facility] Last Admin: 06/28/18 11:04 Dose: 100 mg Timolol Maleate (Timoptic 0.5% Ophth Soln) 1 drop OS Q12H [facility] Last Admin: 06/28/18 01:35 Dose: 1 drop - Labs Labs: 06/28/18 05:20 06/28/18 05:20 PT 11.9 Seconds (9.8-13.1) 06/22/18 20:43 INR 1.0 06/22/18 20:43 APTT 29.5 Seconds (25.6-37.1) 06/22/18 20:43 - Constitutional Appears: Non-toxic, Chronically Ill - Head Exam Head Exam: NORMOCEPHALIC - Eye Exam Eye Exam: absent: Scleral icterus - ENT Exam ENT Exam: Mucous Membranes Dry - Neck Exam Neck Exam: absent: Lymphadenopathy - Respiratory Exam Respiratory Exam: Decreased Breath Sounds - Cardiovascular Exam Cardiovascular Exam: REGULAR RHYTHM - GI/Abdominal Exam GI & Abdominal Exam: Distended, Soft - Rectal Exam Rectal Exam: Deferred - Exam Exam: NORMAL INSPECTION - Extremities Exam Extremities Exam: absent: Pedal Edema - Back Exam Back Exam: absent: CVA tenderness (L), CVA tenderness (R) - Neurological Exam Neurological Exam: Alert, Awake. absent: CN II-XII Intact, Oriented x3 Additional comments: blind - Psychiatric Exam Psychiatric exam: Depressed - Skin Skin Exam: Dry Assessment and Plan (1) Sepsis Status: Acute (2) Urinary tract infection Status: Acute (3) Diabetes mellitus type 2 in obese Status: Acute (4) ESBL (extended spectrum beta-lactamase) producing bacteria infection Status: Acute (5) History of ESBL E. coli infection Status: Acute (6) Infection due to ESBL-producing Escherichia coli Status: Acute (7) Urinary retention Status: Acute (8) Urinary tract infection Status: Acute (9) Parkinsons disease Status: Acute (10) Blindness of both eyes Status: Acute - Assessment and Plan (Free Text) Assessment: renew iv rx consider eval poor prognosis
[2018-06-28] MEDS: Latanoprost 0.005% Opht SOUTION OS SCH (21:31)
[2018-06-28] MEDS: Mineral Oil/White Petrolatum Ophth Oint OD SCH (21:40)
[2018-06-29 01:07] VITALS: RESP 20
[2018-06-29] MEDS: Meropenem 500 MG in Sodium Chloride 0.9% 100 ML IVPB SCH ×2 (01:07→10:07)
[2018-06-29] MEDS: Brimonidine 0.2% 50 DROP/5 ML BOTTLE OS SCH ×2 (02:00→13:59)
[2018-06-29] MEDS: Levothyroxine 75 MCG TAB PO SCH (05:58)
[2018-06-29] MEDS: Insulin Regular 100 units/ml SC SCH ×2 (06:05→13:57)
[2018-06-29] MEDS: Fluconazole IV 100mg/50 ml NS 50 ML IVPB SCH (10:03)
[2018-06-29] MEDS: GlipiZIDE 2.5 mg SR Tab PO SCH (10:04)
[2018-06-29] MEDS: Lubricant Eye Drops UD OS SCH (10:11)
[2018-06-29] MEDS: Cholecalciferol 1,000 INTLU TAB PO SCH (10:12)
--- NOTE | 2018-06-29 11:38 | CP.PCM.PN ---
Subjective - Date & Time of Evaluation Date of Evaluation: 06/30/18 Time of Evaluation: 09:00 - Subjective Subjective: afeb on merrem nad Objective - Vital Signs/Intake and Output Vital Signs (last 24 hours): Temp Pulse Resp BP Pulse Ox 98 F 72 20 128/62 96 06/29/18 07:55 06/29/18 07:55 06/29/18 07:55 06/29/18 10:05 06/29/18 07:55 Intake and Output: 06/29/18 06/29/18 06:59 18:59 Intake Total 580 Output Total 1800 Balance -1220 - Medications Medications: Current Medications Acetaminophen/Butalbital/Caffeine (Fioricet) 1 tab PO Q8H PRN PRN Reason: Migraine headache Artificial Tears (Lacri-Lube) 1 applic OD HS [facility] Last Admin: 06/28/18 21:40 Dose: 1 applic Artificial Tears (Refresh Opth Soln) 0.3 ml OS TID [facility] Last Admin: 06/29/18 10:11 Dose: 1 drop Atorvastatin Calcium (Lipitor) 40 mg PO HS [facility] Last Admin: 06/28/18 21:28 Dose: 40 mg Brimonidine Tartrate (Alphagan 0.2% Opht) 1 drop OS Q12H [facility] Last Admin: 06/29/18 02:00 Dose: 1 drop Cholecalciferol (Vitamin D) 1,000 intlu PO DAILY [facility] Last Admin: 06/29/18 10:12 Dose: 1,000 intlu Donepezil HCl (Aricept) 10 mg PO HS [facility] Last Admin: 06/28/18 21:28 Dose: 10 mg Famotidine (Pepcid) 20 mg PO BID [facility] Last Admin: 06/29/18 10:09 Dose: 20 mg Glipizide (Glucotrol Xl) 2.5 mg PO BRK [facility] Last Admin: 06/29/18 10:04 Dose: 2.5 mg Meropenem 500 mg/ Sodium (Chloride) 100 mls @ 100 mls/hr IVPB Q8 [facility]; Protocol Last Admin: 06/29/18 10:07 Dose: 100 mls/hr Fluconazole (Diflucan Iv 100 Mg/50 Ml Ns) 50 mls @ 50 mls/hr IVPB DAILY [facility]; Protocol Last Admin: 06/29/18 10:03 Dose: 50 mls/hr Insulin Human Regular (Humulin R) 0 units SC ACCU-CHECK [facility]; Protocol Last Admin: 06/29/18 06:05 Dose: 2 units Latanoprost (Xalatan Opht) 1 drop OS HS [facility] Last Admin: 06/28/18 21:31 Dose: 1 drop Levothyroxine Sodium (Synthroid) 75 mcg PO DAILY@0630 [facility] Last Admin: 06/29/18 05:58 Dose: 75 mcg Meclizine HCl (Antivert) 25 mg PO TID PRN PRN Reason: Dizziness Memantine (Namenda) 10 mg PO Q12 [facility] Last Admin: 06/29/18 10:08 Dose: 10 mg Metoprolol Tartrate (Lopressor) 12.5 mg PO DAILY PRN PRN Reason: SBP >139 Last Admin: 06/26/18 04:50 Dose: 12.5 mg Nystatin (Nystop Topical Powder) 1 applic TOP TID [facility] Last Admin: 06/29/18 10:08 Dose: 1 applic Pantoprazole Sodium (Protonix Inj) 40 mg IVP DAILY [facility] Last Admin: 06/29/18 10:43 Dose: 40 mg Prednisolone Acetate (Pred Forte 1% Opht Susp) 1 drop OS QID [facility] Last Admin: 06/28/18 21:32 Dose: 1 drop Ramipril (Altace) 5 mg PO DAILY [facility] Last Admin: 06/29/18 10:05 Dose: 5 mg Risperidone (Risperdal Tab) 0.25 mg PO QAM [facility] Last Admin: 06/29/18 10:11 Dose: 0.25 mg Risperidone (Risperdal Tab) 0.5 mg PO [facility] Last Admin: 06/28/18 21:28 Dose: 0.5 mg Sertraline HCl (Zoloft) 50 mg PO [facility] Last Admin: 06/28/18 21:29 Dose: 50 mg Simethicone (Mylicon Chew Tab) 80 mg PO [facility] PRN PRN Reason: GI distress Last Admin: 06/27/18 21:39 Dose: 80 mg Sitagliptin Phosphate (Januvia) 100 mg PO DAILY [facility] Last Admin: 06/29/18 10:07 Dose: 100 mg Timolol Maleate (Timoptic 0.5% Ophth Soln) 1 drop OS Q12H [facility] Last Admin: 06/29/18 02:00 Dose: 1 drop - Labs Labs: 06/28/18 05:20 06/28/18 05:20 PT 11.9 Seconds (9.8-13.1) 06/22/18 20:43 INR 1.0 06/22/18 20:43 APTT 29.5 Seconds (25.6-37.1) 06/22/18 20:43 - Constitutional Appears: Non-toxic, Chronically Ill - Head Exam Head Exam: NORMOCEPHALIC - Eye Exam Eye Exam: absent: Scleral icterus - ENT Exam ENT Exam: Mucous Membranes Dry - Neck Exam Neck Exam: absent: Lymphadenopathy - Respiratory Exam Respiratory Exam: Decreased Breath Sounds - Cardiovascular Exam Cardiovascular Exam: REGULAR RHYTHM - GI/Abdominal Exam GI & Abdominal Exam: Distended, Soft. absent: Tenderness - Rectal Exam Rectal Exam: Deferred - Exam Exam: NORMAL INSPECTION - Extremities Exam Extremities Exam: absent: Pedal Edema - Back Exam Back Exam: absent: CVA tenderness (L), CVA tenderness (R) - Neurological Exam Neurological Exam: Altered Assessment and Plan (1) Sepsis Status: Acute (2) Urinary tract infection Status: Acute (3) Diabetes mellitus type 2 in obese Status: Acute (4) ESBL (extended spectrum beta-lactamase) producing bacteria infection Status: Acute (5) History of ESBL E. coli infection Status: Acute (6) Infection due to ESBL-producing Escherichia coli Status: Acute (7) Urinary retention Status: Acute (8) Urinary tract infection Status: Acute (9) Parkinsons disease Status: Acute (10) Blindness of both eyes Status: Acute - Assessment and Plan (Free Text) Assessment: cont iv rx as ordered for 14 days
[2018-06-29 12:02] VITALS: BP 150/70; PULSE 73; TEMP 98.3; O2SAT 97
[2018-06-29] MEDS: PrednisoLONE 1% OPTH SUSP OS SCH (14:00)
--- NOTE | 2018-06-29 16:10 | PQF ---
PROVIDER RESPONSE TEXT: Sepsis ruled in, secondary to UTI, esbl, Confirmed and currently being treated with IV Merrem. REVIEWER QUERY TEXT: Conflicting Documentation Clarification ER has an additional diagnosis of Sepsis .. ID has an additional diagnosis of Sepsis. After workup pl ease clarify if Sepsis is ruled in or ruled out. A single mention or documentation of multiple diagnoses for the same clinical presentation appears in the record. Please clarify the diagnosis/diagnoses. Please also document if the condition is: -- Confirmed and current -- Confirmed, treated and resolved -- Ruled out -- Other, please specify The patient's Clinical Indicators include: ER: Brought in with AMS. Daughter noted decreasing glucose level . TEMP: 95.6, 98.8, 98.8, 98.3, 97.9, 97.7, 98.1, 99.2 HR: 72, 86, 86, 84, 85, 83, 93, 96, 89, 91, 93, 75 BP: 81/43, 123/55, 118/70, 112/69, 112/69, 105/65, 100/61, 106/58 R: 16, 16, 16, 20, 16, 18, 20, 20 WBC 16.1 L shift, Lactate 3.3 , URINE CS E Coli ESBL +, Blood CS No growth 3 days RX: IVAB Query created by: Melanie Thoams on 06/29/2018 6:42 AM Electronically signed by: Morris Mcginnis MD 06/29/2018 4:07 PM
== END 2018-06-29 14:58 | DRG 872 ==
LOC: H.ER 18:18 → H.ERHOLD 06-23 00:16 → H.TEL 06-23 01:20
PROVIDERS: ADMIT Family Medicine; ATTEND Family Medicine
PROC: 06HY33Z Insertion of Infusion Device into Lower Vein, Percutaneous Approach (ICD-10-PCS; 2018-06-22)
PROC: 30233N1 Transfusion of Nonautologous Red Blood Cells into Peripheral Vein, Percutaneous Approach (ICD-10-PCS; 2018-06-25)
PROC: 02HV33Z Insertion of Infusion Device into Superior Vena Cava, Percutaneous Approach (ICD-10-PCS; principal; 2018-06-26)
PROC: B518ZZA Fluoroscopy of Superior Vena Cava, Guidance (ICD-10-PCS; 2018-06-26)
PROC: B548ZZA Ultrasonography of Superior Vena Cava, Guidance (ICD-10-PCS; 2018-06-26)
PROC: 3E04329 Introduction of Other Anti-infective into Central Vein, Percutaneous Approach (ICD-10-PCS; 2018-06-26)
DX: A41.9 Sepsis, unspecified organism (principal); N39.0 Urinary tract infection, site not specified; K92.0 Hematemesis; I69.354 Hemiplegia and hemiparesis following cerebral infarction affecting left non-dominant side; B96.20 Unspecified Escherichia coli [E. coli] as the cause of diseases classified elsewhere; Z16.12 Extended spectrum beta lactamase (ESBL) resistance; E11.649 Type 2 diabetes mellitus with hypoglycemia without coma; E11.65 Type 2 diabetes mellitus with hyperglycemia; G20 Parkinson's disease; F02.80 Dementia in other diseases classified elsewhere, unspecified severity, without behavioral disturbance, psychotic disturbance, mood disturbance, and anxiety; G30.9 Alzheimer's disease, unspecified; I11.0 Hypertensive heart disease with heart failure; I50.9 Heart failure, unspecified; I25.10 Atherosclerotic heart disease of native coronary artery without angina pectoris; R33.8 Other retention of urine; D64.9 Anemia, unspecified; E03.9 Hypothyroidism, unspecified; E78.00 Pure hypercholesterolemia, unspecified; E78.5 Hyperlipidemia, unspecified; H40.9 Unspecified glaucoma; H54.3 Unqualified visual loss, both eyes; E66.9 Obesity, unspecified; F41.9 Anxiety disorder, unspecified; Z79.4 Long term (current) use of insulin; Z79.02 Long term (current) use of antithrombotics/antiplatelets; Z79.84 Long term (current) use of oral hypoglycemic drugs; Z86.19 Personal history of other infectious and parasitic diseases; Z87.440 Personal history of urinary (tract) infections; Z87.01 Personal history of pneumonia (recurrent); Z88.6 Allergy status to analgesic agent; Z88.1 Allergy status to other antibiotic agents; Z88.2 Allergy status to sulfonamides

== ENCOUNTER 2018-06-29 11:07 | Inpatient (IN) | payer OTHER ==
[2018-06-29 15:10] VITALS: BMI 22.0
[2018-06-29] MEDS ORDERED: Patient's Own Med (Cyclosporine [Restasis] 1 DROP) LEFTEYE SCH (15:15)
[2018-06-29] MEDS: Lubricant Eye Drops UD OS SCH (16:32)
[2018-06-29] MEDS: Meropenem 500 MG in Sodium Chloride 0.9% 100 ML IVPB SCH (16:32)
[2018-06-29] MEDS: PrednisoLONE 1% OPTH SUSP OS SCH ×2 (16:32→21:16)
[2018-06-29] MEDS: Insulin Regular 100 units/ml SC SCH ×2 (16:47→22:46)
[2018-06-29] MEDS ORDERED: Patient's Own Med (Meropenem 500 Mg In Ns [Merrem Iv 500 Mg/Ns 50 Ml] 500 MG) IV SCH (17:00)
[2018-06-29] MEDS ORDERED: Patient's Own Med (Brimonidine Tartrate/Timolol [Combigan 0.2%-0.5% Eye Drops] 1 DROP) LEFTEYE SCH (21:00)
[2018-06-29] MEDS: Brimonidine 0.2% 50 DROP/5 ML BOTTLE OS SCH (21:10)
[2018-06-29] MEDS: Latanoprost 0.005% Opht SOUTION OS SCH (21:18)
[2018-06-29] MEDS: Mineral Oil/White Petrolatum Ophth Oint OD SCH (22:22)
[2018-06-30] MEDS: Meropenem 500 MG in Sodium Chloride 0.9% 100 ML IVPB SCH ×3 (00:25→16:34)
[2018-06-30] MEDS: Levothyroxine 75 MCG TAB PO SCH (05:59)
[2018-06-30] MEDS: Insulin Regular 100 units/ml SC SCH ×4 (06:50→22:27)
[2018-06-30 06:54] LABS: HEMOGLOBIN 10.6 g/dL (12.0-16.0); MEAN CORPUSCULAR HEMOGLOBIN 29.4 pg (27.0-31.0); MEAN CORPUSCULAR HGB CONC 33.4 g/dL (33.0-37.0); RBC 3.61 Mil/uL (3.80-5.20); RED CELL DISTRIBUTION WIDTH 14.6 % (11.5-14.5); WHITE BLOOD COUNT 6.7 K/uL (4.8-10.8)
[2018-06-30 07:04] LABS: INR 1.1; PROTHROMBIN TIME 12.3 Seconds (9.8-13.1)
[2018-06-30 07:07] LABS: ALB/GLOB RATIO 0.9 (1.0-2.1); ALBUMIN 2.7 g/dL (3.5-5.0); ALT/SGPT 25 U/L (9-52); AST/SGOT 17 U/L (14-36); BLOOD UREA NITROGEN 21 mg/dl (7-17); CALCIUM 8.4 mg/dL (8.4-10.2); GFR NON-AFRICAN AMERICAN > 60
[2018-06-30] MEDS: Brimonidine 0.2% 50 DROP/5 ML BOTTLE OS SCH ×2 (08:20→21:32)
[2018-06-30] MEDS: GlipiZIDE 2.5 mg SR Tab PO SCH (08:21)
[2018-06-30] MEDS: Cholecalciferol 1,000 INTLU TAB PO SCH (08:22)
[2018-06-30] MEDS: PrednisoLONE 1% OPTH SUSP OS SCH ×4 (08:47→21:39)
[2018-06-30] MEDS: Lubricant Eye Drops UD OS SCH ×3 (08:47→16:21)
--- NOTE | 2018-06-30 09:37 | CP.PCM.HP ---
History of Present Illness - History of Present Illness History of Present Illness: 82 yo female admitted to tcu for further treatment of esbl uti patient has history of recurrent esbl uti no complaints at this time denies pain/fever/chills. Present on Admission - Present on Admission Any Indicators Present on Admission: No Review of Systems - Review of Systems All systems: reviewed and no additional remarkable complaints except (mentioned above) Past Patient History - Infectious Disease Hx of Infectious Diseases: None - Tetanus Immunizations Tetanus Immunization: Unknown - Past Medical History & Family History Past Medical History?: Yes Past Family History: Reviewed and not pertinent - Past Social History Smoking Status: Never Smoked - CARDIAC Hx Cardiac Disorders: Yes Hx Atrial Fibrillation: No Hx Cardia Arrhythmia: No Hx Congestive Heart Failure: Yes Hx Hypercholesterolemia: Yes Hx Hypertension: Yes Hx Mitral Valve Prolapse: No Hx Pacemaker: No Hx Peripheral Edema: Yes (occasional lower extremities) - PULMONARY Hx Respiratory Disorders: No - NEUROLOGICAL Hx Neurological Disorder: Yes Hx Alzheimer's Disease: Yes HX Cerebrovascular Accident: Yes Hx Dementia: Yes Hx Migraine: Yes Hx Multiple Sclerosis: No Hx Parkinson's Disease: No Hx Seizures: No Hx Transient Ischemic Attacks (TIA): Yes - HEENT Hx HEENT Problems: Yes Hx Blind: No Hx Cataracts: Yes Hx Deafness: No Hx Difficulty Chewing: No Hx Epistaxis: No Hx Glaucoma: Yes Hx Macular Degeneration: No Other/Comment: corneal transplant - RENAL Hx Chronic Kidney Disease: No - ENDOCRINE/METABOLIC Hx Endocrine Disorders: Yes Hx Diabetes Mellitus Type 2: Yes Hx Hypothyroidism: Yes - HEMATOLOGICAL/ONCOLOGICAL Hx Blood Disorders: Yes Hx AIDS: No Hx Anemia: Yes Hx Human Immunodeficiency Virus (HIV): No - INTEGUMENTARY Hx Dermatological Problems: No Hx Basil Cell: No Hx Duke: No Hx Cellulitis: No Hx Eczema: No Hx Melanoma: No Hx Psoriasis: No Hx Squamous Cell: No - MUSCULOSKELETAL/RHEUMATOLOGICAL Hx Musculoskeletal Disorders: No Hx Falls: No - GASTROINTESTINAL Hx Gastrointestinal Disorders: Yes Hx Crohn's Disease: No Hx Diverticulitis: Yes (Diverticulosis) Hx Gall Bladder Disease: No Hx Gastritis: Yes Hx Pancreatitis: No - GENITOURINARY/GYNECOLOGICAL Hx Genitourinary Disorders: No Hx Sexually Transmitted Disorders: No - PSYCHIATRIC Hx Psychophysiologic Disorder: Yes Hx Anxiety: Yes Hx Substance Use: No - SURGICAL HISTORY Hx Surgeries: Yes Hx Appendectomy: No Hx Carotid Endarterectomy: No Hx Cholecystectomy: No Hx Coronary Artery Bypass Graft: No Hx Coronary Stent: No Hx Tonsillectomy: Yes (partial thyroidectomy) - ANESTHESIA Hx Anesthesia: Yes Hx Anesthesia Reactions: Yes (HALLUCINATION, CONFUSION) Hx Malignant Hyperthermia: No Meds Allergies/Adverse Reactions: Allergies Allergy/AdvReac Type Severity Reaction Status Date / Time aspirin Allergy NAUSEA Verified 06/29/18 11:59 ciprofloxacin Allergy REDNESS Verified 06/29/18 11:59 Sulfa (Sulfonamide Allergy RASH Verified 06/29/18 11:59 Antibiotics) Iodinated Contrast- Oral and AdvReac VOMITING Verified 06/29/18 11:59 IV Dye metformin AdvReac DIARRHEA Verified 06/29/18 11:59 Physical Exam - Constitutional Appears: Non-toxic, No Acute Distress - Head Exam Head Exam: NORMAL INSPECTION - Neck Exam Neck exam: Positive for: Normal Inspection - Respiratory Exam Respiratory Exam: NORMAL BREATHING PATTERN - Cardiovascular Exam Cardiovascular Exam: +S1, +S2 - GI/Abdominal Exam GI & Abdominal Exam: Soft - Extremities Exam Extremities exam: Positive for: normal inspection - Psychiatric Exam Psychiatric exam: Normal Affect, Normal Mood - Skin Skin Exam: Normal Color, Warm Results - Vital Signs Recent Vital Signs: Last Vital Signs Temp 98.8 F 06/29/18 19:40 Pulse 78 06/29/18 19:40 Resp 20 06/29/18 19:40 BP 147/66 06/30/18 08:21 Pulse Ox 99 06/29/18 19:40 - Labs Result Diagrams: 06/30/18 06:45 06/30/18 06:45 Labs: Laboratory Results - last 24 hr 06/29/18 06/29/18 06/30/18 16:03 21:18 05:41 WBC RBC Hgb Hct MCV MCH MCHC RDW Plt Count PT INR Sodium Potassium Chloride Carbon Dioxide Anion Gap BUN Creatinine Est GFR ( Amer) Est GFR (Non-Af Amer) POC Glucose (mg/dL) 312 H 262 H 244 H Random Glucose Calcium Total Bilirubin AST ALT Alkaline Phosphatase Total Protein Albumin Globulin Albumin/Globulin Ratio 06/30/18 06/30/18 06/30/18 06:45 06:45 06:45 WBC 6.7 RBC 3.61 L Hgb 10.6 L Hct 31.8 L MCV 88.0 MCH 29.4 MCHC 33.4 RDW 14.6 H Plt Count 255 PT 12.3 INR 1.1 Sodium 135 Potassium 3.7 Chloride 100 Carbon Dioxide 27 Anion Gap 12 BUN 21 H Creatinine 0.7 Est GFR ( Amer) > 60 Est GFR (Non-Af Amer) > 60 POC Glucose (mg/dL) Random Glucose 281 H Calcium 8.4 Total Bilirubin 0.2 AST 17 ALT 25 Alkaline Phosphatase 61 Total Protein 6.0 L Albumin 2.7 L Globulin 3.2 Albumin/Globulin Ratio 0.9 L Assessment & Plan (1) ESBL (extended spectrum beta-lactamase) producing bacteria infection Status: Acute - Assessment and Plan (Free Text) Assessment: id consult, dr raymond c/w iv abx cont with meds as prescribed monitor vitals monitor labs rest of plan as ordered
[2018-06-30] MEDS: Mineral Oil/White Petrolatum Ophth Oint OD SCH (21:32)
[2018-06-30] MEDS: Latanoprost 0.005% Opht SOUTION OS SCH (21:35)
[2018-07-01] MEDS: Meropenem 500 MG in Sodium Chloride 0.9% 100 ML IVPB SCH ×3 (00:27→17:07)
[2018-07-01] MEDS: Levothyroxine 75 MCG TAB PO SCH (05:58)
[2018-07-01] MEDS: Insulin Regular 100 units/ml SC SCH ×3 (06:55→17:05)
[2018-07-01] MEDS: Brimonidine 0.2% 50 DROP/5 ML BOTTLE OS SCH ×2 (10:11→20:44)
[2018-07-01] MEDS: PrednisoLONE 1% OPTH SUSP OS SCH ×4 (10:12→20:43)
[2018-07-01] MEDS: Cholecalciferol 1,000 INTLU TAB PO SCH (10:14)
[2018-07-01] MEDS: GlipiZIDE 2.5 mg SR Tab PO SCH (10:15)
[2018-07-01] MEDS: Lubricant Eye Drops UD OS SCH ×3 (10:15→17:08)
--- NOTE | 2018-07-01 13:38 | CP.PCM.CON ---
History of Present Illness - History of Present Illness History of Present Illness: 82 y/o female with a PMHx of Diabetes Parkinsons disease and OBS blindness was brought into the ED by daughter for evaluation of an altered mental status. . Referred for ID eval of ESBL UTI and required IV antibiotics for this Is now transferred to TCU for continuation of therapy as well as PT PMHx: IDDM type 2, HTN, hypothyroidism, CVA with b/l blindess, left side weakness, , diverticulitis, advanced dementia, recurrent UTI SurgHx: partial thyroidectomy, tonsillectomy FMHx: noncontributory SHx: denies tobacco/Etoh or drugs Allergies: sulfanamide antibiotics, iodine contrast, metformin; aspirin listed but pt takes at home and has taken in hospital before Meds as bellow Review of Systems - Review of Systems Systems not reviewed;Unavailable: Altered Mental Status All systems: reviewed and no additional remarkable complaints except - Constitutional Constitutional: As Per HPI - EENT Eyes: absent: As Per HPI, Blind Spots, Blurred Vision, Change in Vision, Decreased Night Vision, Diplopia, Discharge, Dry Eye, Exophthalmos, Floaters, Irritation, Itchy Eyes, Loss of Peripheral Vision, Pain, Photophobia, Requires Corrective Lenses, Sees Flashes, Spots in Vision, Tunnel Vision, Other Visual Disturbances, Loss of Vision, Other Ears: absent: As Per HPI, Decreased Hearing, Ear Discharge, Ear Pain, Tinnitus, Abnormal Hearing, Disequilibrium, Dizziness, Other Nose/Mouth/Throat: absent: As Per HPI, Epistaxis, Nasal Congestion, Nasal Discharge, Nasal Obstruction, Nasal Trauma, Nose Pain, Post Nasal Drip, Sinus Pain, Sinus Pressure, Bleeding Gums, Change in Voice, Dental Pain, Dry Mouth, Dysphagia, Halitosis, Hoarsness, Lip Swelling, Mouth Lesions, Mouth Pain, Odynophagia, Sore Throat, Throat Swelling, Tongue Swelling, Facial Pain, Neck Pain, Neck Mass, Other - Breasts Breasts: absent: As Per HPI, Change in Shape, Mass, Pain, Nipple Discharge, Nipple Inversion, Skin Changes, Swelling, Other - Cardiovascular Cardiovascular: absent: As Per HPI, Acrocyanosis, Chest Pain, Chest Pain at Rest, Chest Pain with Activity, Claudication, Diaphoresis, Dyspnea, Dyspnea on Exertion, Edema, Irregular Heart Rhythm, Pain Radiating to Arm/Neck/Jaw, Leg Edema, Leg Ulcers, Lightheadedness, Orthopnea, Palpitations, Paroxysmal Nocturnal Dyspnea, Pedal Edema, Radiating Pain, Rapid Heart Rate, Slow Heart Rate, Syncope, Other - Respiratory Respiratory: absent: As Per HPI, Cough, Dyspnea, Hemoptysis, Dyspnea on Exertion, Wheezing, Snoring, Stridor, Pain on Inspiration, Chest Congestion, Excessive Mucous Production, Change in Mucous Color, Pain with Coughing, Other - Gastrointestinal Gastrointestinal: absent: As Per HPI, Abdominal Pain, Belching, Bloating, Change in Bowel Habits, Change in Stool Character, Coffee Ground Emesis, Constipation, Cramping, Diarrhea, Dyspepsia, Dysphagia, Early Satiety, Excessive Flatus, Fecal Incontinence, Heartburn, Hematemesis, Hematochezia, Loose Stools, Melena, Nausea, Odynophagia, Temesmus, Vomiting, Other - Genitourinary Genitourinary: As Per HPI - Reproductive: Female Reproductive:Female: absent: As Per HPI, Amenorrhea, Amenorrhea/ Control, Currently Menstual, Cycle <21 Days, Cycle >35 Days, Cycle Variable, Menses 1-7 Days, Menses >/= 8 Days, Menses Variable, Cycle > 4 Weeks Between, No Menses for 6 Months, Heavy Menses, Light Menses, Normal Menses, Spotting Between Cycles, S/P Hysterectomy, Menopausal, Post Menopausal, Premenarche, Abnormal Vaginal Bleeding, Dysmenorrhea, Dyspareunia, Genital Lesions, Genital Pruritis, Pelvic Pain, Prolapse Symptoms, Sexual Dysfunction, Vaginal Discharge, Vaginal Dryness, Vaginal Odor, Vaginal Pruritis, Other - Menstruation Menstruation: absent: As Per HPI, Amenorrhea, Amenorrhea/ Control, Currently Menstual, Cycle <21 Days, Cycle >35 Days, Cycle Variable, Menses 1-7 Days, Menses >/= 8 Days, Menses Variable, Cycle > 4 Weeks Between, No Menses for 6 Months, Heavy Menses, Light Menses, Normal Menses, Spotting Between Cycles, S/P Hysterectomy, Menopausal, Post Menopausal, Premenarche, Abnormal Vaginal Bleeding, Dysmenorrhea, Other - Musculoskeletal Musculoskeletal: absent: As Per HPI, Abnormal Gait, Arthralgias, Atrophy, Back Pain, Deformity, Joint Swelling, Limited Range of Motion, Loss of Height, Muscle Cramps, Muscle Weakness, Myalgias, Neck Pain, Numbness, Radiating Pain into Limb, Stiffness, Tingling, Other - Integumentary Integumentary: absent: As Per HPI, Acne, Alopecia, Bleeding Lesions, Change in Hair, Change in Nails, Change in Pigmentation, Changing Lesions, Dry Skin, Erythema, Furuncle, Hirsutism, Lesions, New Lesions, Non-Healing Lesions, Photosensitivity, Pruritus, Rash, Skin Pain, Skin Ulcer, Sores, Striae, Swelling, Unusual Bruising, Wounds, Jaundice, Other - Neurological Neurological: As Per HPI - Psychiatric Psychiatric: As Per HPI - Endocrine Endocrine: absent: As Per HPI, Change in Body Appearance, Change in Libido, Cold Intolorance, Deepening of Voice, Excessive Sweating, Fatigue, Flushing, Heat Intolorance, Increase in Ring/Shoe/Hat Size, Palpitations, Polydipsia, Polyphagia, Polyuria, Other - Hematologic/Lymphatic Hematologic: absent: As Per HPI, Easy Bleeding, Easy Bruising, Lymphadenopathy, Other Past Patient History Past Patient History - Infectious Disease Hx of Infectious Diseases: None - Tetanus Immunizations Tetanus Immunization: Unknown - Past Medical History & Family History Past Medical History?: Yes Past Family History: Reviewed and not pertinent - Past Social History Smoking Status: Never Smoked - CARDIAC Hx Cardiac Disorders: Yes Hx Atrial Fibrillation: No Hx Cardia Arrhythmia: No Hx Congestive Heart Failure: Yes Hx Hypercholesterolemia: Yes Hx Hypertension: Yes Hx Mitral Valve Prolapse: No Hx Pacemaker: No Hx Peripheral Edema: Yes (occasional lower extremities) - PULMONARY Hx Respiratory Disorders: No - NEUROLOGICAL Hx Neurological Disorder: Yes Hx Alzheimer's Disease: Yes HX Cerebrovascular Accident: Yes Hx Dementia: Yes Hx Migraine: Yes Hx Multiple Sclerosis: No Hx Parkinson's Disease: No Hx Seizures: No Hx Transient Ischemic Attacks (TIA): Yes - HEENT Hx HEENT Problems: Yes Hx Blind: No Hx Cataracts: Yes Hx Deafness: No Hx Difficulty Chewing: No Hx Epistaxis: No Hx Glaucoma: Yes Hx Macular Degeneration: No Other/Comment: corneal transplant - RENAL Hx Chronic Kidney Disease: No - ENDOCRINE/METABOLIC Hx Endocrine Disorders: Yes Hx Diabetes Mellitus Type 2: Yes Hx Hypothyroidism: Yes - HEMATOLOGICAL/ONCOLOGICAL Hx Blood Disorders: Yes Hx AIDS: No Hx Anemia: Yes Hx Human Immunodeficiency Virus (HIV): No - INTEGUMENTARY Hx Dermatological Problems: No Hx Basil Cell: No Hx Duke: No Hx Cellulitis: No Hx Eczema: No Hx Melanoma: No Hx Psoriasis: No Hx Squamous Cell: No - MUSCULOSKELETAL/RHEUMATOLOGICAL Hx Musculoskeletal Disorders: No Hx Falls: No - GASTROINTESTINAL Hx Gastrointestinal Disorders: Yes Hx Crohn's Disease: No Hx Diverticulitis: Yes (Diverticulosis) Hx Gall Bladder Disease: No Hx Gastritis: Yes Hx Pancreatitis: No - GENITOURINARY/GYNECOLOGICAL Hx Genitourinary Disorders: No Hx Sexually Transmitted Disorders: No - PSYCHIATRIC Hx Psychophysiologic Disorder: Yes Hx Anxiety: Yes Hx Substance Use: No - SURGICAL HISTORY Hx Surgeries: Yes Hx Appendectomy: No Hx Carotid Endarterectomy: No Hx Cholecystectomy: No Hx Coronary Artery Bypass Graft: No Hx Coronary Stent: No Hx Tonsillectomy: Yes (partial thyroidectomy) - ANESTHESIA Hx Anesthesia: Yes Hx Anesthesia Reactions: Yes (HALLUCINATION, CONFUSION) Hx Malignant Hyperthermia: No Meds Allergies/Adverse Reactions: Allergies Allergy/AdvReac Type Severity Reaction Status Date / Time aspirin Allergy NAUSEA Verified 06/29/18 11:59 ciprofloxacin Allergy REDNESS Verified 06/29/18 11:59 Sulfa (Sulfonamide Allergy RASH Verified 06/29/18 11:59 Antibiotics) Iodinated Contrast- Oral and AdvReac VOMITING Verified 06/29/18 11:59 IV Dye metformin AdvReac DIARRHEA Verified 06/29/18 11:59 - Medications Medications: Current Medications Acetaminophen/Butalbital/Caffeine (Fioricet) 1 tab PO Q8H PRN PRN Reason: Migraine headache Artificial Tears (Lacri-Lube) 1 applic OD HS [facility] Last Admin: 06/30/18 21:32 Dose: 1 applic Artificial Tears (Refresh Opth Soln) 1 ml OS TID [facility] Last Admin: 07/01/18 12:04 Dose: 1 drop Atorvastatin Calcium (Lipitor) 40 mg PO HS [facility] Last Admin: 06/30/18 21:33 Dose: 40 mg Brimonidine Tartrate (Alphagan 0.2% Opht) 1 drop OS Q12H [facility] Last Admin: 07/01/18 10:11 Dose: 1 drop Cholecalciferol (Vitamin D) 1,000 intlu PO DAILY [facility] Last Admin: 07/01/18 10:14 Dose: 1,000 intlu Clopidogrel Bisulfate (Plavix) 75 mg PO DAILY [facility] Last Admin: 07/01/18 10:13 Dose: 75 mg Donepezil HCl (Aricept) 10 mg PO [facility] Last Admin: 06/30/18 21:33 Dose: 10 mg Famotidine (Pepcid) 20 mg PO BID [facility] Last Admin: 07/01/18 10:12 Dose: 20 mg Glipizide (Glucotrol Xl) 2.5 mg PO BRK [facility] Last Admin: 07/01/18 10:15 Dose: 2.5 mg Home Med (Cyclosporine [Restasis]) 1 drop LEFTEYE Q12H [facility] Last Admin: 06/29/18 15:51 Dose: Not Given Meropenem 500 mg/ Sodium (Chloride) 100 mls @ 100 mls/hr IVPB Q8 [facility] Last Admin: 07/01/18 10:20 Dose: 100 mls/hr Insulin Human Regular (Humulin R) 0 units SC ACCU-CHECK [facility]; Protocol Last Admin: 07/01/18 12:03 Dose: 1 units Latanoprost (Xalatan Opht) 1 drop OS [facility] Last Admin: 06/30/18 21:35 Dose: 1 drop Levothyroxine Sodium (Synthroid) 75 mcg PO DAILY@0630 [facility] Last Admin: 07/01/18 05:58 Dose: 75 mcg Meclizine HCl (Antivert) 25 mg PO TID PRN PRN Reason: Dizziness Memantine (Namenda) 10 mg PO Q12 [facility] Last Admin: 07/01/18 10:15 Dose: 10 mg Metoprolol Tartrate (Lopressor) 12.5 mg PO DAILY PRN PRN Reason: SBP >139 Last Admin: 07/01/18 10:14 Dose: 12.5 mg Nystatin (Nystop Topical Powder) 1 applic TOP TID [facility] Last Admin: 07/01/18 12:04 Dose: 1 applic Prednisolone Acetate (Pred Forte 1% Opht Susp) 1 drop OS QID [facility] Last Admin: 07/01/18 12:04 Dose: 1 drop Ramipril (Altace) 5 mg PO DAILY [facility] Last Admin: 07/01/18 10:12 Dose: 5 mg Risperidone (Risperdal Tab) 0.25 mg PO QAM [facility] Last Admin: 07/01/18 10:13 Dose: 0.25 mg Sertraline HCl (Zoloft) 50 mg PO [facility] Last Admin: 06/30/18 21:33 Dose: 50 mg Sitagliptin Phosphate (Januvia) 100 mg PO DAILY [facility] Last Admin: 07/01/18 10:14 Dose: 100 mg Timolol Maleate (Timoptic 0.5% Ophth Soln) 1 drop OS Q12H [facility] Last Admin: 07/01/18 10:12 Dose: 1 drop Physical Exam - Constitutional Appears: Non-toxic, Confused, Chronically Ill - Head Exam Head Exam: NORMOCEPHALIC - Eye Exam Eye Exam: absent: Scleral icterus - ENT Exam ENT Exam: Mucous Membranes Dry - Neck Exam Neck exam: Negative for: Lymphadenopathy - Respiratory Exam Respiratory Exam: Decreased Breath Sounds, Prolonged Expiratory Phase - Cardiovascular Exam Cardiovascular Exam: REGULAR RHYTHM, +S1, +S2 - GI/Abdominal Exam GI & Abdominal Exam: Diminished Bowel Sounds, Soft. absent: Tenderness - Rectal Exam Rectal Exam: Deferred - Exam Exam: NORMAL INSPECTION - Extremities Exam Extremities exam: Positive for: pedal edema, pedal pulses present - Back Exam Back exam: absent: CVA tenderness (L), CVA tenderness (R) - Neurological Exam Neurological exam: Alert, Altered, CN II-XII Intact - Psychiatric Exam Psychiatric exam: Depressed - Skin Skin Exam: Dry Results - Vital Signs Recent Vital Signs: Last Vital Signs Temp 98.1 F 07/01/18 10:04 Pulse 69 07/01/18 10:14 Resp 20 07/01/18 10:04 BP 136/69 07/01/18 10:14 Pulse Ox 97 07/01/18 10:04 - Labs Result Diagrams: 06/30/18 06:45 06/30/18 06:45 Labs: Laboratory Results - last 24 hr 06/30/18 06/30/18 07/01/18 16:07 20:53 05:57 POC Glucose (mg/dL) 292 H 243 H 210 H 07/01/18 10:59 POC Glucose (mg/dL) 177 H Assessment & Plan (1) Blindness of both eyes Status: Acute (2) Diabetes mellitus type 2 in obese Status: Acute (3) Infection due to ESBL-producing Escherichia coli Status: Acute (4) Urinary tract infection Status: Acute - Assessment and Plan (Free Text) Assessment: patient has hx of recurrent UTI's woith ESBL dating back to last summer - May benefit from re-eval may need to prolong course of antibiotic rx pr ognosis guarded
[2018-07-01] MEDS: Lactobacillus Acidophilus 500 MU Cap PO SCH (17:04)
--- NOTE | 2018-07-01 17:07 | CP.PCM.PN ---
Subjective - Date & Time of Evaluation Date of Evaluation: 07/01/18 Time of Evaluation: 11:00 - Subjective Subjective: patient seen and examined at bedside. Interim events noted No complaints offered at this time. denies cp/sob/fever/chills. available diagnostic data reviewed Objective Vital Signs Stable - Constitutional Appears: Non-toxic, No Acute Distress - Head Exam Head Exam: NORMAL INSPECTION - Respiratory Exam Respiratory Exam: NORMAL BREATHING PATTERN - Cardiovascular Exam Cardiovascular Exam: +S1, +S2 - GI/Abdominal Exam GI & Abdominal Exam: Soft - Neurological Exam Neurological Exam: Alert, Awake - Skin Skin Exam: Normal Color, Warm Assessment and Plan monitor vitals monitor labs Cont meds Cont tx consultants appreciated input rest of plan as ordered Assessment and Plan (1) ESBL (extended spectrum beta-lactamase) producing bacteria infection Status: Acute
[2018-07-01] MEDS: Latanoprost 0.005% Opht SOUTION OS SCH (20:46)
[2018-07-01] MEDS: Mineral Oil/White Petrolatum Ophth Oint OD SCH (20:48)
[2018-07-02] MEDS: Mineral Oil/White Petrolatum Ophth Oint OD SCH ×2 (00:01→20:39)
[2018-07-02] MEDS: Insulin Regular 100 units/ml SC SCH ×4 (00:02→17:00)
[2018-07-02] MEDS: Latanoprost 0.005% Opht SOUTION OS SCH ×3 (00:03→21:54)
[2018-07-02] MEDS: PrednisoLONE 1% OPTH SUSP OS SCH ×6 (00:03→21:55)
[2018-07-02] MEDS: Meropenem 500 MG in Sodium Chloride 0.9% 100 ML IVPB SCH ×3 (01:46→17:29)
[2018-07-02] MEDS: Apap-Butalbital-Caffeine 325-50-40mg Tab PO PRN ×2 (02:04→09:42)
[2018-07-02] MEDS: Levothyroxine 75 MCG TAB PO SCH (06:18)
[2018-07-02 07:05] LABS: BASO % 0.6 % (0.0-2.0); EOS # 0.1 K/uL (0.0-0.7); EOS % 0.9 % (0.0-4.0); HEMOGLOBIN 10.6 g/dL (12.0-16.0); LYMPH # 1.7 K/uL (1.0-4.3); MEAN CELL VOLUME 87.7 fl (81.0-99.0); MEAN CORPUSCULAR HEMOGLOBIN 29.6 pg (27.0-31.0); MEAN CORPUSCULAR HGB CONC 33.7 g/dL (33.0-37.0); MEAN PLATELET VOLUME 9.5 fl (7.2-11.7); MONO # 0.7 K/uL (0.0-0.8); MONO % 9.5 % (0.0-10.0); NEUT # 5.2 K/uL (1.8-7.0); RBC 3.6 Mil/uL (3.80-5.20); RED CELL DISTRIBUTION WIDTH 14.5 % (11.5-14.5); WHITE BLOOD COUNT 7.8 K/uL (4.8-10.8)
[2018-07-02 07:15] LABS: ALB/GLOB RATIO 0.8 (1.0-2.1); ALBUMIN 2.8 g/dL (3.5-5.0); ALT/SGPT 23 U/L (9-52); AST/SGOT 18 U/L (14-36); BLOOD UREA NITROGEN 23 mg/dl (7-17); CALCIUM 8.7 mg/dL (8.4-10.2); GFR NON-AFRICAN AMERICAN > 60
[2018-07-02 08:04] LABS: SQUAMOUS EPITHIAL 1 /hpf (0-5); URINE AMORPHOUS SEDIMENT RARE /ul (<OCC); URINE BACTERIA FEW (<OCC); URINE BILIRUBIN NEGATIVE (NEGATIVE); URINE BLOOD SMALL (NEGATIVE); URINE CLARITY CLOUDY (Clear); URINE COLOR YELLOW (YELLOW); URINE GLUCOSE (UA) 150 mg/dL (NEGATIVE); URINE LEUKOCYTE ESTERASE LARGE Leu/uL (Negative); URINE PROTEIN 30 mg/dL (NEGATIVE)
[2018-07-02] MEDS ORDERED: Potassium Chloride 20 mEq ER Tab PO ONE (08:11)
[2018-07-02] MEDS: GlipiZIDE 5 mg SR Tab PO SCH (09:41)
[2018-07-02] MEDS: Cholecalciferol 1,000 INTLU TAB PO SCH (09:43)
[2018-07-02] MEDS: GlipiZIDE 2.5 mg SR Tab PO SCH (09:44)
[2018-07-02] MEDS: Brimonidine 0.2% 50 DROP/5 ML BOTTLE OS SCH ×3 (09:46→21:57)
[2018-07-02] MEDS: Lactobacillus Acidophilus 500 MU Cap PO SCH ×2 (09:47→17:29)
[2018-07-02] MEDS: Lubricant Eye Drops UD OS SCH ×3 (09:48→17:30)
--- NOTE | 2018-07-02 11:54 | CP.PCM.PN ---
Subjective - Date & Time of Evaluation Date of Evaluation: 07/02/18 Time of Evaluation: 09:00 - Subjective Subjective: patient seen and examined at bedside. Interim events noted mild abdomnial discomfort at times denies cp/sob/fever/chills. available diagnostic data reviewed Objective Vital Signs Stable - Constitutional Appears: Non-toxic, No Acute Distress - Head Exam Head Exam: NORMAL INSPECTION - Respiratory Exam Respiratory Exam: NORMAL BREATHING PATTERN - Cardiovascular Exam Cardiovascular Exam: +S1, +S2 - GI/Abdominal Exam GI & Abdominal Exam: Soft - Neurological Exam Neurological Exam: Alert, Awake - Skin Skin Exam: Normal Color, Warm Assessment and Plan monitor vitals monitor labs Cont meds Cont tx consultants appreciated input pending urine culture adjust dm meds rest of plan as ordered Assessment and Plan (1) ESBL (extended spectrum beta-lactamase) producing bacteria infection Status: Acute
[2018-07-03] MEDS: Meropenem 500 MG in Sodium Chloride 0.9% 100 ML IVPB SCH ×3 (02:26→16:33)
[2018-07-03] MEDS: Insulin Regular 100 units/ml SC SCH ×5 (02:44→22:48)
[2018-07-03] MEDS: Levothyroxine 75 MCG TAB PO SCH (06:32)
[2018-07-03] MEDS: Lubricant Eye Drops UD OS SCH ×3 (08:47→17:07)
[2018-07-03] MEDS: PrednisoLONE 1% OPTH SUSP OS SCH ×4 (08:47→21:23)
[2018-07-03] MEDS: Brimonidine 0.2% 50 DROP/5 ML BOTTLE OS SCH ×2 (08:48→21:04)
[2018-07-03] MEDS: GlipiZIDE 5 mg SR Tab PO SCH (08:51)
[2018-07-03] MEDS: Cholecalciferol 1,000 INTLU TAB PO SCH (08:52)
[2018-07-03] MEDS: Lactobacillus Acidophilus 500 MU Cap PO SCH ×2 (09:00→17:03)
[2018-07-03] MEDS: Latanoprost 0.005% Opht SOUTION OS SCH (21:16)
[2018-07-03] MEDS: Mineral Oil/White Petrolatum Ophth Oint OD SCH (21:23)
[2018-07-04] MEDS: Meropenem 500 MG in Sodium Chloride 0.9% 100 ML IVPB SCH ×3 (00:06→16:37)
[2018-07-04] MEDS: Levothyroxine 75 MCG TAB PO SCH (05:36)
[2018-07-04] MEDS: Insulin Regular 100 units/ml SC SCH ×4 (06:46→22:26)
[2018-07-04 07:43] LABS: BLOOD UREA NITROGEN 19 mg/dl (7-17); CALCIUM 8.7 mg/dL (8.4-10.2); GFR NON-AFRICAN AMERICAN > 60
[2018-07-04] MEDS: Brimonidine 0.2% 50 DROP/5 ML BOTTLE OS SCH ×2 (08:35→22:24)
[2018-07-04] MEDS: GlipiZIDE 5 mg SR Tab PO SCH (08:38)
[2018-07-04] MEDS: Cholecalciferol 1,000 INTLU TAB PO SCH (08:39)
[2018-07-04] MEDS: Lactobacillus Acidophilus 500 MU Cap PO SCH ×2 (08:48→16:35)
[2018-07-04] MEDS: Potassium Chloride 20 mEq ER Tab PO SCH (08:48)
[2018-07-04] MEDS: PrednisoLONE 1% OPTH SUSP OS SCH ×4 (08:49→22:33)
[2018-07-04] MEDS: Lubricant Eye Drops UD OS SCH ×3 (08:50→16:35)
[2018-07-04] MEDS: Latanoprost 0.005% Opht SOUTION OS SCH (22:53)
[2018-07-04] MEDS: Mineral Oil/White Petrolatum Ophth Oint OD SCH ×2 (22:58→23:04)
[2018-07-05] MEDS: Meropenem 500 MG in Sodium Chloride 0.9% 100 ML IVPB SCH ×3 (00:52→16:13)
[2018-07-05] MEDS: Insulin Regular 100 units/ml SC SCH ×4 (06:40→22:00)
[2018-07-05] MEDS: Levothyroxine 75 MCG TAB PO SCH (06:40)
[2018-07-05] MEDS: PrednisoLONE 1% OPTH SUSP OS SCH ×4 (08:06→21:46)
[2018-07-05] MEDS: Brimonidine 0.2% 50 DROP/5 ML BOTTLE OS SCH ×2 (08:06→21:41)
[2018-07-05] MEDS: Lubricant Eye Drops UD OS SCH ×3 (08:08→16:14)
[2018-07-05] MEDS: Cholecalciferol 1,000 INTLU TAB PO SCH (08:09)
[2018-07-05] MEDS: Potassium Chloride 20 mEq ER Tab PO SCH (08:09)
[2018-07-05] MEDS: GlipiZIDE 5 mg SR Tab PO SCH (08:09)
[2018-07-05] MEDS: Lactobacillus Acidophilus 500 MU Cap PO SCH ×2 (08:13→16:15)
[2018-07-05] MEDS: Latanoprost 0.005% Opht SOUTION OS SCH (21:57)
[2018-07-05] MEDS: Mineral Oil/White Petrolatum Ophth Oint OD SCH (22:02)
[2018-07-06] MEDS: Meropenem 500 MG in Sodium Chloride 0.9% 100 ML IVPB SCH ×3 (00:25→17:32)
[2018-07-06] MEDS: Insulin Regular 100 units/ml SC SCH ×4 (06:28→23:33)
[2018-07-06] MEDS: Levothyroxine 75 MCG TAB PO SCH (06:29)
[2018-07-06] MEDS: GlipiZIDE 5 mg SR Tab PO SCH (08:30)
[2018-07-06] MEDS: PrednisoLONE 1% OPTH SUSP OS SCH ×4 (08:40→20:50)
[2018-07-06] MEDS: Brimonidine 0.2% 50 DROP/5 ML BOTTLE OS SCH ×2 (08:50→20:45)
[2018-07-06] MEDS: Cholecalciferol 1,000 INTLU TAB PO SCH (09:12)
[2018-07-06] MEDS: Lubricant Eye Drops UD OS SCH ×3 (09:16→17:32)
[2018-07-06] MEDS: Lactobacillus Acidophilus 500 MU Cap PO SCH ×2 (10:00→17:32)
--- NOTE | 2018-07-06 10:38 | CP.PCM.PN ---
Subjective - Date & Time of Evaluation Date of Evaluation: 07/03/18 Time of Evaluation: 11:00 - Subjective Subjective: patient has improved appetite Has no fever. accucheck are stable. Objective - Vital Signs/Intake and Output Vital Signs (last 24 hours): Temp Pulse Resp BP Pulse Ox 97.9 F 70 20 162/82 H 18 L 07/06/18 09:00 07/06/18 09:11 07/05/18 19:26 07/06/18 09:14 07/06/18 09:00 - Medications Medications: Current Medications Acetaminophen/Butalbital/Caffeine (Fioricet) 1 tab PO Q8H PRN PRN Reason: Migraine headache Last Admin: 07/02/18 09:42 Dose: 1 tab Artificial Tears (Lacri-Lube) 1 applic OD HS [facility] Last Admin: 07/05/18 22:02 Dose: 1 applic Artificial Tears (Refresh Opth Soln) 0.3 ml OS TID [facility] Last Admin: 07/06/18 09:16 Dose: 1 u Atorvastatin Calcium (Lipitor) 40 mg PO HS [facility] Last Admin: 07/05/18 21:43 Dose: 40 mg Brimonidine Tartrate (Alphagan 0.2% Opht) 1 drop OS Q12@0900,2100 [facility] Last Admin: 07/06/18 08:50 Dose: 1 u Cholecalciferol (Vitamin D) 1,000 intlu PO DAILY [facility] Last Admin: 07/06/18 09:12 Dose: 1,000 intlu Clopidogrel Bisulfate (Plavix) 75 mg PO DAILY [facility] Last Admin: 07/06/18 09:13 Dose: 75 mg Dicyclomine HCl (Bentyl) 20 mg PO TID [facility] Last Admin: 07/06/18 09:15 Dose: 20 mg Docusate Sodium (Colace) 100 mg PO BID [facility] Last Admin: 07/06/18 09:09 Dose: Not Given Donepezil HCl (Aricept) 10 mg PO HS [facility] Last Admin: 07/05/18 21:43 Dose: 10 mg Famotidine (Pepcid) 20 mg PO BID [facility] Last Admin: 07/06/18 09:14 Dose: 20 mg Glipizide (Glucotrol Xl) 5 mg PO BRK [facility] Last Admin: 07/06/18 08:30 Dose: 5 mg Home Med (Cyclosporine [Restasis]) 1 drop LEFTEYE Q12H [facility] Last Admin: 06/29/18 15:51 Dose: Not Given Meropenem 500 mg/ Sodium (Chloride) 100 mls @ 100 mls/hr IVPB Q8 [facility] Last Admin: 07/06/18 09:04 Dose: 100 mls/hr Insulin Human Regular (Humulin R) 0 units SC ACCU-CHECK [facility]; Protocol Last Admin: 07/06/18 06:28 Dose: 2 units Lactobacillus Acidophilus (Bacid Acidophilus) 1 cap PO BID [facility] Last Admin: 07/05/18 16:15 Dose: 1 cap Latanoprost (Xalatan Opht) 1 drop OS HS@2100 [facility] Last Admin: 07/05/18 21:57 Dose: 1 drop Levothyroxine Sodium (Synthroid) 75 mcg PO DAILY@0630 [facility] Last Admin: 07/06/18 06:29 Dose: 75 mcg Meclizine HCl (Antivert) 25 mg PO TID PRN PRN Reason: Dizziness Memantine (Namenda) 10 mg PO Q12 [facility] Last Admin: 07/06/18 09:13 Dose: 10 mg Metoprolol Tartrate (Lopressor) 12.5 mg PO DAILY PRN PRN Reason: SBP >139 Last Admin: 07/06/18 09:11 Dose: 12.5 mg Nystatin (Nystop Topical Powder) 1 applic TOP TID [facility] Last Admin: 07/06/18 09:06 Dose: 1 applic Potassium Chloride (K-Dur 20 Meq Er Tab) 20 meq PO DAILY [facility] Last Admin: 07/05/18 08:09 Dose: 20 meq Prednisolone Acetate (Pred Forte 1% Opht Susp) 1 drop OS 0900,1300,1700,2100 [facility] Last Admin: 07/06/18 08:40 Dose: 1 u Ramipril (Altace) 5 mg PO DAILY [facility] Last Admin: 07/06/18 09:14 Dose: 5 mg Risperidone (Risperdal Tab) 0.25 mg PO QAM@0900 [facility] Last Admin: 07/06/18 09:13 Dose: 0.25 mg Sertraline HCl (Zoloft) 50 mg PO HS [facility] Last Admin: 07/05/18 21:43 Dose: 50 mg Sitagliptin Phosphate (Januvia) 100 mg PO DAILY [facility] Last Admin: 07/06/18 09:06 Dose: 100 mg Timolol Maleate (Timoptic 0.5% Ophth Soln) 1 drop OS Q12@0900,2100 [facility] Last Admin: 07/06/18 08:30 Dose: 1 u - Labs Labs: 07/02/18 06:30 07/04/18 05:30 PT 12.3 Seconds (9.8-13.1) 06/30/18 06:45 INR 1.1 06/30/18 06:45 - Head Exam Head Exam: NORMAL INSPECTION - Eye Exam Eye Exam: Normal appearance - ENT Exam ENT Exam: Mucous Membranes Moist - Respiratory Exam Respiratory Exam: Clear to Ausculation Bilateral Assessment and Plan (1) UTI due to extended-spectrum beta lactamase (ESBL) producing Escherichia coli Status: Acute (2) Diarrhea Status: Acute (3) GI bleed Status: Acute (4) Gastritis Status: Acute - Assessment and Plan (Free Text) Plan: Cont meds Cont tx Cont PT Cont IV antibiotics.
--- NOTE | 2018-07-06 10:39 | CP.PCM.PN ---
Subjective - Date & Time of Evaluation Date of Evaluation: 07/04/18 Time of Evaluation: 11:00 - Subjective Subjective: Patient has no pain No episode of upper GI bleed Has no fever Has better appetite. Objective - Vital Signs/Intake and Output Vital Signs (last 24 hours): Temp Pulse Resp BP Pulse Ox 97.9 F 70 20 162/82 H 18 L 07/06/18 09:00 07/06/18 09:11 07/05/18 19:26 07/06/18 09:14 07/06/18 09:00 - Medications Medications: Current Medications Acetaminophen/Butalbital/Caffeine (Fioricet) 1 tab PO Q8H PRN PRN Reason: Migraine headache Last Admin: 07/02/18 09:42 Dose: 1 tab Artificial Tears (Lacri-Lube) 1 applic OD HS [facility] Last Admin: 07/05/18 22:02 Dose: 1 applic Artificial Tears (Refresh Opth Soln) 0.3 ml OS TID [facility] Last Admin: 07/06/18 09:16 Dose: 1 u Atorvastatin Calcium (Lipitor) 40 mg PO HS [facility] Last Admin: 07/05/18 21:43 Dose: 40 mg Brimonidine Tartrate (Alphagan 0.2% Opht) 1 drop OS Q12@0900,2100 [facility] Last Admin: 07/06/18 08:50 Dose: 1 u Cholecalciferol (Vitamin D) 1,000 intlu PO DAILY [facility] Last Admin: 07/06/18 09:12 Dose: 1,000 intlu Clopidogrel Bisulfate (Plavix) 75 mg PO DAILY [facility] Last Admin: 07/06/18 09:13 Dose: 75 mg Dicyclomine HCl (Bentyl) 20 mg PO TID [facility] Last Admin: 07/06/18 09:15 Dose: 20 mg Docusate Sodium (Colace) 100 mg PO BID [facility] Last Admin: 07/06/18 09:09 Dose: Not Given Donepezil HCl (Aricept) 10 mg PO HS [facility] Last Admin: 07/05/18 21:43 Dose: 10 mg Famotidine (Pepcid) 20 mg PO BID [facility] Last Admin: 07/06/18 09:14 Dose: 20 mg Glipizide (Glucotrol Xl) 5 mg PO BRK [facility] Last Admin: 07/06/18 08:30 Dose: 5 mg Home Med (Cyclosporine [Restasis]) 1 drop LEFTEYE Q12H [facility] Last Admin: 06/29/18 15:51 Dose: Not Given Meropenem 500 mg/ Sodium (Chloride) 100 mls @ 100 mls/hr IVPB Q8 [facility] Last Admin: 07/06/18 09:04 Dose: 100 mls/hr Insulin Human Regular (Humulin R) 0 units SC ACCU-CHECK [facility]; Protocol Last Admin: 07/06/18 06:28 Dose: 2 units Lactobacillus Acidophilus (Bacid Acidophilus) 1 cap PO BID [facility] Last Admin: 07/05/18 16:15 Dose: 1 cap Latanoprost (Xalatan Opht) 1 drop OS HS@2100 [facility] Last Admin: 07/05/18 21:57 Dose: 1 drop Levothyroxine Sodium (Synthroid) 75 mcg PO DAILY@0630 [facility] Last Admin: 07/06/18 06:29 Dose: 75 mcg Meclizine HCl (Antivert) 25 mg PO TID PRN PRN Reason: Dizziness Memantine (Namenda) 10 mg PO Q12 [facility] Last Admin: 07/06/18 09:13 Dose: 10 mg Metoprolol Tartrate (Lopressor) 12.5 mg PO DAILY PRN PRN Reason: SBP >139 Last Admin: 07/06/18 09:11 Dose: 12.5 mg Nystatin (Nystop Topical Powder) 1 applic TOP TID [facility] Last Admin: 07/06/18 09:06 Dose: 1 applic Potassium Chloride (K-Dur 20 Meq Er Tab) 20 meq PO DAILY [facility] Last Admin: 07/05/18 08:09 Dose: 20 meq Prednisolone Acetate (Pred Forte 1% Opht Susp) 1 drop OS 0900,1300,1700,2100 [facility] Last Admin: 07/06/18 08:40 Dose: 1 u Ramipril (Altace) 5 mg PO DAILY [facility] Last Admin: 07/06/18 09:14 Dose: 5 mg Risperidone (Risperdal Tab) 0.25 mg PO QAM@0900 [facility] Last Admin: 07/06/18 09:13 Dose: 0.25 mg Sertraline HCl (Zoloft) 50 mg PO HS [facility] Last Admin: 07/05/18 21:43 Dose: 50 mg Sitagliptin Phosphate (Januvia) 100 mg PO DAILY [facility] Last Admin: 07/06/18 09:06 Dose: 100 mg Timolol Maleate (Timoptic 0.5% Ophth Soln) 1 drop OS Q12@0900,2100 [facility] Last Admin: 07/06/18 08:30 Dose: 1 u - Labs Labs: 07/02/18 06:30 07/04/18 05:30 PT 12.3 Seconds (9.8-13.1) 06/30/18 06:45 INR 1.1 06/30/18 06:45 - Head Exam Head Exam: NORMAL INSPECTION - Eye Exam Eye Exam: Normal appearance - Respiratory Exam Respiratory Exam: Clear to Ausculation Bilateral - Cardiovascular Exam Cardiovascular Exam: REGULAR RHYTHM - GI/Abdominal Exam GI & Abdominal Exam: Soft Assessment and Plan (1) UTI due to extended-spectrum beta lactamase (ESBL) producing Escherichia coli Status: Acute (2) Acute upper GI bleed Status: Acute (3) Diabetes mellitus type 2 in obese Status: Acute (4) Gastritis Status: Acute - Assessment and Plan (Free Text) Plan: Cont meds Cont tx Cont iv antibiotics
--- NOTE | 2018-07-06 10:40 | CP.PCM.PN ---
Subjective - Date & Time of Evaluation Date of Evaluation: 07/05/18 Time of Evaluation: 17:45 - Subjective Subjective: Patient remains stable has no chest pain has no fever. Objective - Vital Signs/Intake and Output Vital Signs (last 24 hours): Temp Pulse Resp BP Pulse Ox 97.9 F 70 20 162/82 H 18 L 07/06/18 09:00 07/06/18 09:11 07/05/18 19:26 07/06/18 09:14 07/06/18 09:00 - Medications Medications: Current Medications Acetaminophen/Butalbital/Caffeine (Fioricet) 1 tab PO Q8H PRN PRN Reason: Migraine headache Last Admin: 07/02/18 09:42 Dose: 1 tab Artificial Tears (Lacri-Lube) 1 applic OD HS [facility] Last Admin: 07/05/18 22:02 Dose: 1 applic Artificial Tears (Refresh Opth Soln) 0.3 ml OS TID [facility] Last Admin: 07/06/18 09:16 Dose: 1 u Atorvastatin Calcium (Lipitor) 40 mg PO HS [facility] Last Admin: 07/05/18 21:43 Dose: 40 mg Brimonidine Tartrate (Alphagan 0.2% Opht) 1 drop OS Q12@0900,2100 [facility] Last Admin: 07/06/18 08:50 Dose: 1 u Cholecalciferol (Vitamin D) 1,000 intlu PO DAILY [facility] Last Admin: 07/06/18 09:12 Dose: 1,000 intlu Clopidogrel Bisulfate (Plavix) 75 mg PO DAILY [facility] Last Admin: 07/06/18 09:13 Dose: 75 mg Dicyclomine HCl (Bentyl) 20 mg PO TID [facility] Last Admin: 07/06/18 09:15 Dose: 20 mg Docusate Sodium (Colace) 100 mg PO BID [facility] Last Admin: 07/06/18 09:09 Dose: Not Given Donepezil HCl (Aricept) 10 mg PO HS [facility] Last Admin: 07/05/18 21:43 Dose: 10 mg Famotidine (Pepcid) 20 mg PO BID [facility] Last Admin: 07/06/18 09:14 Dose: 20 mg Glipizide (Glucotrol Xl) 5 mg PO BRK [facility] Last Admin: 07/06/18 08:30 Dose: 5 mg Home Med (Cyclosporine [Restasis]) 1 drop LEFTEYE Q12H [facility] Last Admin: 06/29/18 15:51 Dose: Not Given Meropenem 500 mg/ Sodium (Chloride) 100 mls @ 100 mls/hr IVPB Q8 [facility] Last Admin: 07/06/18 09:04 Dose: 100 mls/hr Insulin Human Regular (Humulin R) 0 units SC ACCU-CHECK [facility]; Protocol Last Admin: 07/06/18 06:28 Dose: 2 units Lactobacillus Acidophilus (Bacid Acidophilus) 1 cap PO BID [facility] Last Admin: 07/05/18 16:15 Dose: 1 cap Latanoprost (Xalatan Opht) 1 drop OS HS@2100 [facility] Last Admin: 07/05/18 21:57 Dose: 1 drop Levothyroxine Sodium (Synthroid) 75 mcg PO DAILY@0630 [facility] Last Admin: 07/06/18 06:29 Dose: 75 mcg Meclizine HCl (Antivert) 25 mg PO TID PRN PRN Reason: Dizziness Memantine (Namenda) 10 mg PO Q12 [facility] Last Admin: 07/06/18 09:13 Dose: 10 mg Metoprolol Tartrate (Lopressor) 12.5 mg PO DAILY PRN PRN Reason: SBP >139 Last Admin: 07/06/18 09:11 Dose: 12.5 mg Nystatin (Nystop Topical Powder) 1 applic TOP TID [facility] Last Admin: 07/06/18 09:06 Dose: 1 applic Potassium Chloride (K-Dur 20 Meq Er Tab) 20 meq PO DAILY [facility] Last Admin: 07/05/18 08:09 Dose: 20 meq Prednisolone Acetate (Pred Forte 1% Opht Susp) 1 drop OS 0900,1300,1700,2100 [facility] Last Admin: 07/06/18 08:40 Dose: 1 u Ramipril (Altace) 5 mg PO DAILY [facility] Last Admin: 07/06/18 09:14 Dose: 5 mg Risperidone (Risperdal Tab) 0.25 mg PO QAM@0900 [facility] Last Admin: 07/06/18 09:13 Dose: 0.25 mg Sertraline HCl (Zoloft) 50 mg PO HS [facility] Last Admin: 07/05/18 21:43 Dose: 50 mg Sitagliptin Phosphate (Januvia) 100 mg PO DAILY [facility] Last Admin: 07/06/18 09:06 Dose: 100 mg Timolol Maleate (Timoptic 0.5% Ophth Soln) 1 drop OS Q12@0900,2100 [facility] Last Admin: 07/06/18 08:30 Dose: 1 u - Labs Labs: 07/02/18 06:30 07/04/18 05:30 PT 12.3 Seconds (9.8-13.1) 06/30/18 06:45 INR 1.1 06/30/18 06:45 - Head Exam Head Exam: NORMAL INSPECTION - Eye Exam Eye Exam: Normal appearance - ENT Exam ENT Exam: Mucous Membranes Moist - Respiratory Exam Respiratory Exam: Clear to Ausculation Bilateral - Cardiovascular Exam Cardiovascular Exam: REGULAR RHYTHM - GI/Abdominal Exam GI & Abdominal Exam: Normal Bowel Sounds Assessment and Plan (1) Acute upper GI bleed Status: Acute (2) Diabetes mellitus type 2 in obese Status: Acute (3) UTI due to extended-spectrum beta lactamase (ESBL) producing Escherichia coli Status: Acute - Assessment and Plan (Free Text) Plan: Cont meds Cont tx Cont iv antibiotics
[2018-07-06] MEDS: Potassium Chloride 20 mEq ER Tab PO SCH (12:34)
[2018-07-06] MEDS: Proshield Plus GEL TOP SCH (18:16)
[2018-07-06] MEDS: Latanoprost 0.005% Opht SOUTION OS SCH (20:52)
[2018-07-06] MEDS: Mineral Oil/White Petrolatum Ophth Oint OD SCH (21:07)
[2018-07-06] MEDS ORDERED: Insulin Lispro Mix 75/25 100 units/ml (HumaLog) 10ml SC SCH (22:00)
--- NOTE | 2018-07-06 22:05 | CP.PCM.PN ---
Subjective - Date & Time of Evaluation Date of Evaluation: 07/06/18 Time of Evaluation: 09:30 - Subjective Subjective: Pt was seen and assessed at bedside. No new complaints at this time. Currently on the 14th (final) day of antibiotic therapy for ESBL of the urine, on Meropenem. Will be switched to PO antibiotics. Medically stable at this time. Objective - Vital Signs/Intake and Output Vital Signs (last 24 hours): Temp Pulse Resp BP Pulse Ox 97.3 F L 66 20 112/64 96 07/06/18 19:29 07/06/18 19:29 07/06/18 19:29 07/06/18 19:29 07/06/18 19:29 - Medications Medications: Current Medications Acetaminophen/Butalbital/Caffeine (Fioricet) 1 tab PO Q8H PRN PRN Reason: Migraine headache Last Admin: 07/02/18 09:42 Dose: 1 tab Artificial Tears (Lacri-Lube) 1 applic OD HS [facility] Last Admin: 07/06/18 21:07 Dose: 1 applic Artificial Tears (Refresh Opth Soln) 0.3 ml OS TID [facility] Last Admin: 07/06/18 17:32 Dose: 1 u Atorvastatin Calcium (Lipitor) 40 mg PO HS [facility] Last Admin: 07/06/18 21:02 Dose: 40 mg Brimonidine Tartrate (Alphagan 0.2% Opht) 1 drop OS Q12@0900,2100 [facility] Last Admin: 07/06/18 20:45 Dose: 1 u Cholecalciferol (Vitamin D) 1,000 intlu PO DAILY [facility] Last Admin: 07/06/18 09:12 Dose: 1,000 intlu Clopidogrel Bisulfate (Plavix) 75 mg PO DAILY [facility] Last Admin: 07/06/18 09:13 Dose: 75 mg Dicyclomine HCl (Bentyl) 20 mg PO TID [facility] Last Admin: 07/06/18 17:32 Dose: 20 mg Dimethicone (Proshield Plus Skin Protectant) 1 applic TOP Q8 [facility] Last Admin: 07/06/18 18:16 Dose: 1 applic Docusate Sodium (Colace) 100 mg PO BID [facility] Last Admin: 07/06/18 17:29 Dose: Not Given Donepezil HCl (Aricept) 10 mg PO HS [facility] Last Admin: 07/06/18 21:09 Dose: 10 mg Famotidine (Pepcid) 20 mg PO BID [facility] Last Admin: 07/06/18 17:32 Dose: 20 mg Home Med (Cyclosporine [Restasis]) 1 drop LEFTEYE Q12H [facility] Last Admin: 06/29/18 15:51 Dose: Not Given Insulin Human Regular (Humulin R) 0 units SC ACCU-CHECK [facility]; Protocol Last Admin: 07/06/18 16:30 Dose: Not Given Insulin Lispro Protam/Lispro Human (Humalog Mix 75/25) 20 units SC ACB [facility] Insulin Lispro Protam/Lispro Human (Humalog Mix 75/25) 5 units SC HS [facility] Last Admin: 07/06/18 21:08 Dose: 5 units Lactobacillus Acidophilus (Bacid Acidophilus) 1 cap PO BID [facility] Last Admin: 07/06/18 17:32 Dose: 1 cap Latanoprost (Xalatan Opht) 1 drop OS HS@2100 [facility] Last Admin: 07/06/18 20:52 Dose: 1 drop Levothyroxine Sodium (Synthroid) 75 mcg PO DAILY@0630 [facility] Last Admin: 07/06/18 06:29 Dose: 75 mcg Meclizine HCl (Antivert) 25 mg PO TID PRN PRN Reason: Dizziness Memantine (Namenda) 10 mg PO Q12 [facility] Last Admin: 07/06/18 20:49 Dose: 10 mg Metoprolol Tartrate (Lopressor) 12.5 mg PO DAILY PRN PRN Reason: SBP >139 Last Admin: 07/06/18 09:11 Dose: 12.5 mg Nitrofurantoin Macrocrystals (Macrobid) 100 mg PO BID [facility]; Protocol Stop: 07/21/18 17:01 Last Admin: 07/06/18 18:13 Dose: Not Given Nystatin (Nystop Topical Powder) 1 applic TOP TID [facility] Last Admin: 07/06/18 18:15 Dose: 1 applic Potassium Chloride (K-Dur 20 Meq Er Tab) 20 meq PO DAILY [facility] Last Admin: 07/06/18 12:34 Dose: 20 meq Prednisolone Acetate (Pred Forte 1% Opht Susp) 1 drop OS 0900,1300,1700,2100 [facility] Last Admin: 07/06/18 20:50 Dose: 1 drop Ramipril (Altace) 5 mg PO DAILY [facility] Last Admin: 07/06/18 09:14 Dose: 5 mg Risperidone (Risperdal Tab) 0.25 mg PO QAM@0900 [facility] Last Admin: 07/06/18 09:13 Dose: 0.25 mg Risperidone (Risperdal Tab) 0.5 mg PO HS [facility] Last Admin: 07/06/18 21:03 Dose: 0.5 mg Sertraline HCl (Zoloft) 50 mg PO HS [facility] Last Admin: 07/06/18 21:02 Dose: 50 mg Sitagliptin Phosphate (Januvia) 100 mg PO DAILY [facility] Last Admin: 07/06/18 09:06 Dose: 100 mg Timolol Maleate (Timoptic 0.5% Oph Soln) 1 drop OS Q12@0900,2100 [facility] Last Admin: 07/06/18 21:01 Dose: 1 u - Labs Labs: 07/02/18 06:30 07/04/18 05:30 PT 12.3 Seconds (9.8-13.1) 06/30/18 06:45 INR 1.1 06/30/18 06:45 - Constitutional Appears: Well - Head Exam Head Exam: NORMAL INSPECTION - Eye Exam Eye Exam: Normal appearance - ENT Exam ENT Exam: Mucous Membranes Moist, Normal Exam - Neck Exam Neck Exam: Normal Inspection - Respiratory Exam Respiratory Exam: Clear to Ausculation Bilateral, NORMAL BREATHING PATTERN - Cardiovascular Exam Cardiovascular Exam: REGULAR RHYTHM, +S1, +S2 - GI/Abdominal Exam GI & Abdominal Exam: Soft - Extremities Exam Extremities Exam: Normal Inspection - Back Exam Back Exam: NORMAL INSPECTION - Neurological Exam Neurological Exam: Alert, Awake - Psychiatric Exam Psychiatric exam: Agitated, Normal Mood - Skin Skin Exam: Dry, Warm Assessment and Plan - Assessment and Plan (Free Text) Plan: Assessment/Impression/Major Problems Now -ESBL urine. -On final day (14 day) of IV antibiotic therapy. -will be switched to PO Macrobid. -gao catheter to be removed. -strict glycemic control. -Diabetes Mellitus -Regular insulin switched to Insulin Lispro 75/25. -20 units ACB; 5 units HS. -D/C glipizide.
[2018-07-07] MEDS: Proshield Plus GEL TOP SCH ×3 (00:31→16:45)
[2018-07-07] MEDS: Levothyroxine 75 MCG TAB PO SCH (05:41)
[2018-07-07] MEDS: Insulin Regular 100 units/ml SC SCH ×3 (06:51→16:41)
[2018-07-07] MEDS ORDERED: Insulin Lispro Mix 75/25 100 units/ml (HumaLog) 10ml SC SCH (07:30)
[2018-07-07] MEDS: Brimonidine 0.2% 50 DROP/5 ML BOTTLE OS SCH (08:33)
[2018-07-07] MEDS: PrednisoLONE 1% OPTH SUSP OS SCH ×3 (08:33→16:45)
[2018-07-07] MEDS: Cholecalciferol 1,000 INTLU TAB PO SCH (08:36)
[2018-07-07] MEDS: Potassium Chloride 20 mEq ER Tab PO SCH (08:37)
[2018-07-07] MEDS: Lubricant Eye Drops UD OS SCH ×3 (08:38→16:45)
[2018-07-07] MEDS: Lactobacillus Acidophilus 500 MU Cap PO SCH ×2 (09:00→16:39)
--- NOTE | 2018-07-07 13:30 | CP.PCM.DIS ---
Provider - Provider Date of Admission: 06/29/18 15:00 Attending physician: Morris Mcginnis MD Consults: 06/29/18 15:27 Infectious Disease Consult Routine Comment: Consulting Provider: Landon Morton Consulting Physician: Landon Morton Reason for Consult: uti,sepsis 07/03/18 21:17 Nursing Referral for Wound Care Routine Comment: Physician Instructions: Reason For Exam: sacral ulcer Time Spent in preparation of Discharge (in minutes): 30 Diagnosis - Discharge Diagnosis (1) ESBL (extended spectrum beta-lactamase) producing bacteria infection Status: Acute (2) Parkinsons disease Status: Chronic (3) Urinary tract infection Status: Acute (4) CVA (cerebral vascular accident) Status: Chronic (5) Dementia Status: Chronic (6) Diabetes Status: Chronic (7) Hypothyroidism Status: Chronic (8) Hypertension Status: Chronic Hospital Course - Lab Results Lab Results: Micro Results 07/01/18 13:45 Urine,[facility] Urine Culture - Final No Growth (<1,000 CFU/ML) Most Recent Lab Values WBC 7.8 K/uL (4.8-10.8) 07/02/18 06:30 RBC 3.60 Mil/uL (3.80-5.20) L 07/02/18 06:30 Hgb 10.6 g/dL (12.0-16.0) L 07/02/18 06:30 Hct 31.6 % (34.0-47.0) L 07/02/18 06:30 MCV 87.7 fl (81.0-99.0) 07/02/18 06:30 MCH 29.6 pg (27.0-31.0) 07/02/18 06:30 MCHC 33.7 g/dL (33.0-37.0) 07/02/18 06:30 RDW 14.5 % (11.5-14.5) 07/02/18 06:30 Plt Count 290 K/uL (130-400) 07/02/18 06:30 MPV 9.5 fl (7.2-11.7) 07/02/18 06:30 Neut % (Auto) 67.0 % (50.0-75.0) 07/02/18 06:30 Lymph % (Auto) 22.0 % (20.0-40.0) 07/02/18 06:30 [place] % (Auto) 9.5 % (0.0-10.0) 07/02/18 06:30 Eos % (Auto) 0.9 % (0.0-4.0) 07/02/18 06:30 Baso % (Auto) 0.6 % (0.0-2.0) 07/02/18 06:30 Neut # (Auto) 5.2 K/uL (1.8-7.0) 07/02/18 06:30 Lymph # (Auto) 1.7 K/uL (1.0-4.3) 07/02/18 06:30 [place] # (Auto) 0.7 K/uL (0.0-0.8) 07/02/18 06:30 Eos # (Auto) 0.1 K/uL (0.0-0.7) 07/02/18 06:30 Baso # (Auto) 0.0 K/uL (0.0-0.2) 07/02/18 06:30 PT 12.3 Seconds (9.8-13.1) 06/30/18 06:45 INR 1.1 06/30/18 06:45 Sodium 136 mmol/l (132-148) 07/04/18 05:30 Potassium 3.4 MMOL/L (3.6-5.0) L 07/04/18 05:30 Chloride 98 mmol/L (98-107) 07/04/18 05:30 Carbon Dioxide 30 mmol/L (22-30) 07/04/18 05:30 Anion Gap 11 (10-20) 07/04/18 05:30 BUN 19 mg/dl (7-17) H 07/04/18 05:30 Creatinine 0.6 mg/dl (0.7-1.2) L 07/04/18 05:30 Est GFR ( Amer) > 60 07/04/18 05:30 Est GFR (Non-Af Amer) > 60 07/04/18 05:30 POC Glucose (mg/dL) 88 mg/dL (65-110) 07/07/18 10:46 Random Glucose 145 mg/dL (65-105) H 07/04/18 05:30 Hemoglobin A1c 8.5 % (4.2-6.5) H 07/02/18 06:30 Calcium 8.7 mg/dL (8.4-10.2) 07/04/18 05:30 Total Bilirubin 0.2 mg/dl (0.2-1.3) 07/02/18 06:30 AST 18 U/L (14-36) 07/02/18 06:30 ALT 23 U/L (9-52) 07/02/18 06:30 Alkaline Phosphatase 65 U/L (38-126) 07/02/18 06:30 Total Protein 6.1 G/DL (6.3-8.2) L 07/02/18 06:30 Albumin 2.8 g/dL (3.5-5.0) L 07/02/18 06:30 Globulin 3.4 gm/dL (2.2-3.9) 07/02/18 06:30 Albumin/Globulin Ratio 0.8 (1.0-2.1) L 07/02/18 06:30 Urine Color Yellow (YELLOW) 07/01/18 13:45 Urine Clarity Cloudy (Clear) 07/01/18 13:45 Urine pH 5.0 (5.0-8.0) 07/01/18 13:45 Ur Specific [place] 1.019 (1.003-1.030) 07/01/18 13:45 Urine Protein 30 mg/dL (NEGATIVE) 07/01/18 13:45 Urine Glucose (UA) 150 mg/dL (NEGATIVE) 07/01/18 13:45 Urine Ketones Trace mg/dL (NEGATIVE) 07/01/18 13:45 Urine Blood Small (NEGATIVE) 07/01/18 13:45 Urine Nitrate Negative (NEGATIVE) 07/01/18 13:45 Urine Bilirubin Negative (NEGATIVE) 07/01/18 13:45 Urine Urobilinogen 2.0 mg/dL (0.2-1.0) H 07/01/18 13:45 Ur Leukocyte Esterase Large Ajay/uL (Negative) 07/01/18 13:45 Urine RBC (Auto) 20 /hpf (0-3) H 07/01/18 13:45 Urine Microscopic WBC 365 /hpf (0-5) H 07/01/18 13:45 Ur Squamous Epith Cells 1 /hpf (0-5) 07/01/18 13:45 Amorphous Sediment Rare /ul (<OCC) H 07/01/18 13:45 Urine Bacteria Few (<OCC) H 07/01/18 13:45 Hyaline Casts 3-5 /hpf (0-2) H 07/01/18 13:45 Urine Yeast (Budding) Many /hpf (NEGATIVE) H 07/01/18 13:45 - Hospital Course Hospital Course: 82 year old female with PMHx recurrent UTI, CVA, blindness, hypothyroidism, IDDMII and HTN admitted to TCU on 06/30/18 for recurrent UTI with ESBL E. coli for IV abx. Patient completed a course of IV Meropenem and abx was switched to PO macrobid yesterday. Patient has been afebrile w/ stable vitals in TCU. Patient is at her baseline level and stable to discharge home with PO macrobid for 2 we eks. Advised to f/u with PMD within 1 week. Discharge Exam - Head Exam Head Exam: NORMAL INSPECTION - Neck Exam Neck exam: Normal Inspection - Respiratory Exam Respiratory Exam: NORMAL BREATHING PATTERN - Cardiovascular Exam Cardiovascular Exam: REGULAR RHYTHM, +S1, +S2 - GI/Abdominal Exam GI & Abdominal Exam: Normal Bowel Sounds, Soft. absent: Tenderness - Extremities Exam Extremities exam: normal inspection - Skin Skin Exam: Normal Color - Additional Findings Additional findings: Right arm PICC line was removed this morning with sterile technique and patient tolerated well. Discharge Plan - Discharge Medications Prescriptions: Brimonidine Tartrate/Timolol [Combigan 0.2%-0.5% Eye Drops] 1 drop LEFTEYE Q12 #1 drops Latanoprost 0.005% Opht [Xalatan Opht] 1 drop LEFTEYE HS #1 bottle Mineral Oil/Petrolatum,White [Systane Nighttime Eye Ointment] 1 unit RIGHTEYE HS 30 Days #1 oint...g. Nitrofurantoin Macrocrystals [Macrobid] 100 mg PO BID #26 cap Polyvinyl Alcohol/Povidone [Refresh Opth Soln] 1 drop OS TID 30 Days #1 drpette PrednisoLONE 1% [Pred Forte 1% Opht Susp] 1 drop OS QID #1 bottle Ramipril [Altace] 5 mg PO DAILY #30 cap SITagliptin [Januvia] 100 mg PO DAILY #30 tab - Follow Up Plan Condition: GOOD Disposition: HOME/ ROUTINE Additional Instructions: Please follow up with your primary care doctor within 1 week Referrals: Morris Mcginnis MD [Staff Provider] - Jake Cha MD [Medical Doctor] - Landon Morton MD [Staff Provider] -
[2018-07-07] MEDS ORDERED: Dextrose 50% SYRINGE Inj (50 ml) IVP ONE (16:04)
[2018-07-07 17:14] VITALS: BP 120/64; PULSE 51; RESP 20; O2SAT 100
[2018-07-07 17:19] VITALS: TEMP 97
== END 2018-07-07 20:00 | disposition home or self-care (01) | DRG 690 ==
LOC: H.TCU 15:00
PROVIDERS: ADMIT Family Medicine; ATTEND Family Medicine
PROC: 3E03329 Introduction of Other Anti-infective into Peripheral Vein, Percutaneous Approach (ICD-10-PCS; principal; 2018-06-29)
PROC: F07Z9FZ Gait Training/Functional Ambulation Treatment using Assistive, Adaptive, Supportive or Protective Equipment (ICD-10-PCS; 2018-06-29)
PROC: F08Z4FZ Home Management Treatment using Assistive, Adaptive, Supportive or Protective Equipment (ICD-10-PCS; 2018-06-29)
PROC: F07M6FZ Therapeutic Exercise Treatment of Musculoskeletal System - Whole Body using Assistive, Adaptive, Supportive or Protective Equipment (ICD-10-PCS; 2018-06-30)
DX: N39.0 Urinary tract infection, site not specified (principal); Z16.12 Extended spectrum beta lactamase (ESBL) resistance; I69.354 Hemiplegia and hemiparesis following cerebral infarction affecting left non-dominant side; F02.80 Dementia in other diseases classified elsewhere, unspecified severity, without behavioral disturbance, psychotic disturbance, mood disturbance, and anxiety; G30.9 Alzheimer's disease, unspecified; K29.00 Acute gastritis without bleeding; B96.20 Unspecified Escherichia coli [E. coli] as the cause of diseases classified elsewhere; G20 Parkinson's disease; F09 Unspecified mental disorder due to known physiological condition; R19.7 Diarrhea, unspecified; I11.0 Hypertensive heart disease with heart failure; I50.9 Heart failure, unspecified; I69.398 Other sequelae of cerebral infarction; H54.3 Unqualified visual loss, both eyes; E03.9 Hypothyroidism, unspecified; E11.9 Type 2 diabetes mellitus without complications; E78.00 Pure hypercholesterolemia, unspecified; F41.9 Anxiety disorder, unspecified; E66.9 Obesity, unspecified; Z86.19 Personal history of other infectious and parasitic diseases; Z87.440 Personal history of urinary (tract) infections; Z94.7 Corneal transplant status; Z79.4 Long term (current) use of insulin; Z88.6 Allergy status to analgesic agent; Z88.1 Allergy status to other antibiotic agents; Z88.2 Allergy status to sulfonamides; Z91.041 Radiographic dye allergy status

== ENCOUNTER 2018-08-25 15:49 | Inpatient (IN) | payer MEDICARE, OTHER ==
--- NOTE | 2018-08-25 16:13 | ED PDOC ---
HPI: Altered Mental Status Time Seen by Provider: 08/25/18 16:10 Chief Complaint (Nursing): Weakness/Neurological Deficit Chief Complaint (Provider): Progressive Weakness/AMS History Per: Family History/Exam Limitations: Clinical Condition Onset/Duration Of Symptoms: Hrs (one houre prior to presentation) Usual Baseline: Alert Oriented Exacerbating Factor(s): Unknown Severity: Moderate (Pt presents to the ED with EMS with a complaint of an alterd mental state that began approximately one hour ago. Pt has a history of urosepsis admits and shows no signs of sepsis or BESS criteria at presentation. 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; L side weakness), Dementia, Depression, Diabetes, Diverticulitis (Diverticulosis), Fractures (rt wrist/elbow), Gastritis, HTN, Hypercholesterolemia, Hyperlipidemia, Hypothyroidism, Migraine, Peripheral Edema (occasional lower extremities), Pneumonia, TIA Denies: Arthritis, Asthma, Atrial Fibrillation, Bipolar Disorder, Bronchitis, CAD, Cardia Arrhythmia, COPD, Crohn's Disease, Emphysema, Gall Bladder Disease, HIV, Hyperthyroidism, Kidney Stones, Mitral Valve Prolapse, Multiple Sclerosis, Osteoporosis, Pancreatitis, Paranoia, Parkinson's Disease, Post Traumatic Stress Disorder, Pulmonary Embolism, Chronic Kidney Disease, Rheumatoid Arthritis, Schizophrenia, Seizures, Sickle Cell Disease, Sexually Transmitted Disease, Sleep Apnea - Surgical History Surgical History: Tonsillectomy (partial thyroidectomy) Denies: Appendectomy, CABG, Carotid Endarterectomy, Cholecystectomy, Coronary Stent, Pacemaker - Family History Family History: States: Unknown Family Hx - Home Medications Home Medications: Ambulatory Orders Medication Instructions Recorded Acetaminophen/Butalbital/Caf 1 tab PO Q8H PRN #30 tab 04/28/18 [Fioricet] Atorvastatin [Lipitor] 40 mg PO HS #30 tab 04/28/18 Clopidogrel [Plavix] 75 mg PO DAILY #30 tab 04/28/18 Donepezil [Aricept] 10 mg PO HS #30 tab 04/28/18 Famotidine [Pepcid] 20 mg PO BID #30 tab 04/28/18 Levothyroxine [Synthroid] 75 mcg PO DAILY@0630 #30 tab 04/28/18 Meclizine [Meclizine*] 25 mg PO TID PRN #90 tab 04/28/18 Memantine [Namenda] 10 mg PO Q12 #30 tab 04/28/18 Metoprolol Tartrate [Lopressor] 12.5 mg PO DAILY PRN #30 tab 04/28/18 Nystatin [Nystop Topical Powder] 1 applic TOP TID #1 bottle 04/28/18 Prednisolone Acetate [Pred Forte] 1 drop LEFTEYE QID 30 Days #1 04/28/18 drops.susp Sertraline [Zoloft] 50 mg PO HS #30 tab 04/28/18 cycloSPORINE [Restasis] 1 drop LEFTEYE Q12H 30 Days #1 04/28/18 bottle risperiDONE [RisperDAL Tab] 0.25 mg PO QAM #30 tab 04/28/18 Brimonidine Tartrate/Timolol 1 drop LEFTEYE Q12 #1 drops 07/07/18 [Combigan 0.2%-0.5% Eye Drops] Dimethicone [Proshield Plus Skin 1 applic TOP Q8 gel 07/07/18 Protectant] Docusate [Colace] 100 mg PO BID cap 07/07/18 Latanoprost 0.005% Opht [Xalatan 1 drop LEFTEYE HS #1 bottle 07/07/18 Opht] Mineral Oil/Petrolatum,White 1 unit RIGHTEYE HS 30 Days #1 07/07/18 [Systane Nighttime Eye Ointment] oint...g. Polyvinyl Alcohol/Povidone 1 drop OS TID 30 Days #1 drpette 07/07/18 [Refresh Opth Soln] SITagliptin [Januvia] 100 mg PO DAILY #30 tab 07/07/18 Cholecalciferol [Vitamin D 1000 IU] 1,000 unit PO DAILY 08/25/18 Collagenase [Santyl] 1 appl TOP BID 08/25/18 Cranberry Fruit Extract/Vit C [Azo 1 cap PO DAILY 08/25/18 Cranberry Softgel] Insulin Lispro Mix 75/25 [HumaLog 5 units SC DIN 08/25/18 MIX 75/25] Insulin Lispro Mix 75/25 [HumaLog 11 units SC BRK 08/25/18 MIX 75/25] Olmesartan [BenicarNf] 20 mg PO DAILY 08/25/18 l [place]/B Bifidum/B Longum 1 cap PO DAILY 08/25/18 [Compendium Capsule] - Allergies Allergies/Adverse Reactions: Allergies Allergy/AdvReac Type Severity Reaction Status Date / Time aspirin Allergy NAUSEA Verified 08/25/18 15:58 ciprofloxacin Allergy REDNESS Verified 08/25/18 15:58 Sulfa (Sulfonamide Allergy RASH Verified 08/25/18 15:58 Antibiotics) Iodinated Contrast- Oral and AdvReac VOMITING Verified 08/25/18 15:58 IV Dye metformin AdvReac DIARRHEA Verified 08/25/18 15:58 Review of Systems Review Of Systems: ROS cannot be obtained secondary to pt's inabilty to answer questions. Physical Exam - Reviewed Nursing Documentation Reviewed: Yes Vital Signs Reviewed: Yes - Physical Exam Appears: Positive for: In Acute Distress Head Exam: Positive for: ATRAUMATIC, NORMAL INSPECTION Skin: Positive for: Normal Color, Warm, Dry. Negative for: Diaphoresis, Pallor, Rash Eye Exam: Positive for: PERRL Neck: Positive for: Supple Cardiovascular/Chest: Positive for: Chest Non Tender, Bradycardia. Negative for: Edema Respiratory: Positive for: Normal Breath Sounds. Negative for: Decreased Breath Sounds, Crackles, Rales, Wheezing, Respiratory Distress Pulses-Carotid (L): 2+ Pulses-Carotid (R): 2+ Pulses-Radial (L): 2+ Pulses-Radial (R): 2+ Neurologic/Psych: Positive for: Motor/Sensory Deficits. Negative for: Alert, Oriented - Laboratory Results Result Diagrams: 08/25/18 16:52 08/25/18 16:52 - ECG O2 Sat by Pulse Oximetry: 98 Medical Decision Making Medical Decision Making: I: AMS P: UA CBC CMP EKG CT Head Results of all tests were marked as without clinical significance and thus no apparent medical reason for her AMS condition Dr Doyle, her PMD, contacted and the case discussed. He agreed with the Plan to admit the patient ot med-surge floor Plan discussed with family who were likewise in agreement Bridge orders entered to ensure smooth transition of care Disposition - Clinical Impression Clinical Impression: Altered mental state - Patient ED Disposition Is Patient to be Admitted: Yes Discussed With Dr.: Morris Mcginnis Doctor Will See Patient In The: Hospital Counseled Patient/Family Regarding: Studies Performed, Diagnosis - Disposition Disposition: Routine/Home Disposition Time: 20:40 Condition: FAIR - Pt Status Changed To: Hospital Disposition Of: Inpatient - Admit Certification Admit to Inpatient:: After my assessment, the patient will require hospitalization for at least two midnights. This is because of the severity of symptoms shown, intensity of services needed, and/or the medical risk in this patient being treated as an outpatient.
--- NOTE | 2018-08-25 17:12 | CT ---
Date of service: 08/25/2018 PROCEDURE: CT HEAD WITHOUT CONTRAST. HISTORY: AMS COMPARISON: Unenhanced head CT 06/22/2018. TECHNIQUE: Axial computed tomography images were obtained through the head/brain without intravenous contrast. Radiation dose: Total exam DLP = 760.12 mGy-cm. This CT exam was performed using one or more of the following dose reduction techniques: Automated exposure control, adjustment of the mA and/or kV according to patient size, and/or use of iterative reconstruction technique. FINDINGS: HEMORRHAGE: No intracranial hemorrhage. BRAIN: Good corticomedullary differentiation is seen. Reiterated diffuse cerebral atrophy and chronic microangiopathy. No suspicious extra-axial fluid collection is identified and the midline brain anatomy appears grossly nonfocal as imaged. No mass effect identified. Dense calcifications are identified at the medial bilateral basal ganglia once again. VENTRICLES: Unremarkable. No hydrocephalus. CALVARIUM: Unremarkable. PARANASAL SINUSES: Unremarkable as visualized. No significant inflammatory changes. MASTOID AIR CELLS: Unremarkable as visualized. No inflammatory changes. OTHER FINDINGS: None. IMPRESSION: Stable age-appropriate age related neuro degenerative changes without acute intracranial findings by standard CT criteria. Follow-up CT or MRI are available if clinically warranted.
[2018-08-25 17:52] LABS: INR 1.1
[2018-08-25 17:55] LABS: PARTIAL THROMBOPLASTIN TIME 27.8 Seconds (25.6-37.1)
[2018-08-25 17:58] LABS: ALBUMIN 3.4 g/dL (3.5-5.0); ALT/SGPT 26 U/L (9-52); AST/SGOT 28 U/L (14-36); BASO % 0.6 % (0.0-2.0); BLOOD UREA NITROGEN 20 mg/dl (7-17); CALCIUM 9.3 mg/dL (8.4-10.2); EOS # 0.2 K/uL (0.0-0.7); EOS % 2.1 % (0.0-4.0); GFR NON-AFRICAN AMERICAN > 60; HEMOGLOBIN 11.2 g/dL (12.0-16.0); LIPASE 60 U/L (23-300); LYMPH # 3.3 K/uL (1.0-4.3); LYMPH % 41.5 % (20.0-40.0); MEAN CELL VOLUME 90.8 fl (81.0-99.0); MEAN CORPUSCULAR HEMOGLOBIN 29.5 pg (27.0-31.0); MEAN CORPUSCULAR HGB CONC 32.5 g/dL (33.0-37.0); MEAN PLATELET VOLUME 9.6 fl (7.2-11.7); MONO # 0.8 K/uL (0.0-0.8); MONO % 10.1 % (0.0-10.0); NEUT # 3.7 K/uL (1.8-7.0); NEUT % 45.7 % (50.0-75.0); NRBC % 0.2 % (0.0-0.0); RBC 3.8 Mil/uL (3.80-5.20)
[2018-08-25 18:27] LABS: B-TYPE NATRIURETIC PEPTIDE 1150 pg/ml (0-900)
[2018-08-25 19:54] LABS: URINE AMORPHOUS SEDIMENT RARE /ul (<OCC); URINE BACTERIA RARE (<OCC); URINE BILIRUBIN NEGATIVE (NEGATIVE); URINE BLOOD SMALL (NEGATIVE); URINE CLARITY CLOUDY (Clear); URINE COLOR YELLOW (YELLOW); URINE GLUCOSE (UA) NEG (NEGATIVE); URINE LEUKOCYTE ESTERASE NEG Leu/uL (Negative); URINE PROTEIN 30 mg/dL (NEGATIVE); URINE UROBILINOGEN 0.2-1.0 mg/dL (0.2-1.0)
[2018-08-25 22:22] VITALS: BMI 17.3
[2018-08-25] MEDS ORDERED: Apap-Butalbital-Caffeine 325-50-40mg Tab PO PRN (22:42)
[2018-08-25] MEDS ORDERED: Patient's Own Med (Cyclosporine [Restasis] 1 DROP) LEFTEYE SCH (22:45)
[2018-08-26] MEDS: Potassium Chloride 40 MEQ in Dextrose 5%/Lactated Ringer's 1,000 ML IV SCH ×2 (00:16→12:31)
--- NOTE | 2018-08-26 00:25 | CP.PCM.CON ---
History of Present Illness - History of Present Illness History of Present Illness: 83 y/o female with a PMHx of Diabetes brought for evaluation of an altered mental status.. Patient has hx of recurrent UTI. Referred for ID [email or web address] Has hx of ESBL UTI in past Started on Merrem IV rx PMHx: IDDM type 2, HTN, hypothyroidism, CVA with b/l blindess, left side weakness, , diverticulitis, advanced dementia, recurrent UTI SurgHx: partial thyroidectomy, tonsillectomy FMHx: noncontributory SHx: denies tobacco/Etoh or drugs Allergies: sulfanamide antibiotics, iodine contrast, metformin; aspirin listed but pt takes at home and has taken in hospital before Meds as bellow Review of Systems - Review of Systems Systems not reviewed;Unavailable: Altered Mental Status All systems: reviewed and no additional remarkable complaints except - Constitutional Constitutional: As Per HPI - EENT Eyes: absent: As Per HPI, Blind Spots, Blurred Vision, Change in Vision, Decreased Night Vision, Diplopia, Discharge, Dry Eye, Exophthalmos, Floaters, Irritation, Itchy Eyes, Loss of Peripheral Vision, Pain, Photophobia, Requires Corrective Lenses, Sees Flashes, Spots in Vision, Tunnel Vision, Other Visual Disturbances, Loss of Vision, Other Ears: absent: As Per HPI, Decreased Hearing, Ear Discharge, Ear Pain, Tinnitus, Abnormal Hearing, Disequilibrium, Dizziness, Other Nose/Mouth/Throat: absent: As Per HPI, Epistaxis, Nasal Congestion, Nasal Discharge, Nasal Obstruction, Nasal Trauma, Nose Pain, Post Nasal Drip, Sinus Pain, Sinus Pressure, Bleeding Gums, Change in Voice, Dental Pain, Dry Mouth, Dysphagia, Halitosis, Hoarsness, Lip Swelling, Mouth Lesions, Mouth Pain, Odynophagia, Sore Throat, Throat Swelling, Tongue Swelling, Facial Pain, Neck Pain, Neck Mass, Other - Breasts Breasts: absent: As Per HPI, Change in Shape, Mass, Pain, Nipple Discharge, Nipple Inversion, Skin Changes, Swelling, Other - Cardiovascular Cardiovascular: absent: As Per HPI, Acrocyanosis, Chest Pain, Chest Pain at Rest, Chest Pain with Activity, Claudication, Diaphoresis, Dyspnea, Dyspnea on Exertion, Edema, Irregular Heart Rhythm, Pain Radiating to Arm/Neck/Jaw, Leg Edema, Leg Ulcers, Lightheadedness, Orthopnea, Palpitations, Paroxysmal Nocturnal Dyspnea, Pedal Edema, Radiating Pain, Rapid Heart Rate, Slow Heart Rate, Syncope, Other - Respiratory Respiratory: absent: As Per HPI, Cough, Dyspnea, Hemoptysis, Dyspnea on Exertion, Wheezing, Snoring, Stridor, Pain on Inspiration, Chest Congestion, Excessive Mucous Production, Change in Mucous Color, Pain with Coughing, Other - Gastrointestinal Gastrointestinal: absent: As Per HPI, Abdominal Pain, Belching, Bloating, Change in Bowel Habits, Change in Stool Character, Coffee Ground Emesis, Constipation, Cramping, Diarrhea, Dyspepsia, Dysphagia, Early Satiety, Excessive Flatus, Fecal Incontinence, Heartburn, Hematemesis, Hematochezia, Loose Stools, Melena, Nausea, Odynophagia, Temesmus, Vomiting, Other - Genitourinary Genitourinary: As Per HPI - Reproductive: Female Reproductive:Female: absent: As Per HPI, Amenorrhea, Amenorrhea/ Control, Currently Menstual, Cycle <21 Days, Cycle >35 Days, Cycle Variable, Menses 1-7 Days, Menses >/= 8 Days, Menses Variable, Cycle > 4 Weeks Between, No Menses for 6 Months, Heavy Menses, Light Menses, Normal Menses, Spotting Between Cycles, S/P Hysterectomy, Menopausal, Post Menopausal, Premenarche, Abnormal Vaginal Bleeding, Dysmenorrhea, Dyspareunia, Genital Lesions, Genital Pruritis, Pelvic Pain, Prolapse Symptoms, Sexual Dysfunction, Vaginal Discharge, Vaginal Dryness, Vaginal Odor, Vaginal Pruritis, Other - Menstruation Menstruation: absent: As Per HPI, Amenorrhea, Amenorrhea/ Control, Currently Menstual, Cycle <21 Days, Cycle >35 Days, Cycle Variable, Menses 1-7 Days, Menses >/= 8 Days, Menses Variable, Cycle > 4 Weeks Between, No Menses for 6 Months, Heavy Menses, Light Menses, Normal Menses, Spotting Between Cycles, S /P Hysterectomy, Menopausal, Post Menopausal, Premenarche, Abnormal Vaginal Bleeding, Dysmenorrhea, Other - Musculoskeletal Musculoskeletal: absent: As Per HPI, Abnormal Gait, Arthralgias, Atrophy, Back Pain, Deformity, Joint Swelling, Limited Range of Motion, Loss of Height, Muscle Cramps, Muscle Weakness, Myalgias, Neck Pain, Numbness, Radiating Pain into L imb, Stiffness, Tingling, Other - Integumentary Integumentary: absent: As Per HPI, Acne, Alopecia, Bleeding Lesions, Change in Hair, Change in Nails, Change in Pigmentation, Changing Lesions, Dry Skin, Erythema, Furuncle, Hirsutism, Lesions, New Lesions, Non-Healing Lesions, Photosensitivity, Pruritus, Rash, Skin Pain, Skin Ulcer, Sores, Striae, Swelling, Unusual Bruising, Wounds, Jaundice, Other - Neurological Neurological: As Per HPI - Psychiatric Psychiatric: As Per HPI - Endocrine Endocrine: absent: As Per HPI, Change in Body Appearance, Change in Libido, Cold Intolorance, Deepening of Voice, Excessive Sweating, Fatigue, Flushing, Heat Intolorance, Increase in Ring/Shoe/Hat Size, Palpitations, Polydipsia, Polyphagia, Polyuria, Other - Hematologic/Lymphatic Hematologic: absent: As Per HPI, Easy Bleeding, Easy Bruising, Lymphadenopathy, Other Past Patient History - Infectious Disease Hx of Infectious Diseases: None - Tetanus Immunizations Tetanus Immunization: Unknown - Past Medical History & Family History Past Medical History?: Yes - Past Social History Smoking Status: Never Smoked - CARDIAC Hx Atrial Fibrillation: No Hx Cardia Arrhythmia: No Hx Congestive Heart Failure: Yes Hx Hypercholesterolemia: Yes Hx Hypertension: Yes Hx Mitral Valve Prolapse: No Hx Pacemaker: No Hx Peripheral Edema: Yes (occasional lower extremities) - PULMONARY Hx Asthma: No Hx Bronchitis: No Hx Chronic Obstructive Pulmonary Disease (COPD): No Hx Emphysema: No Hx Pneumonia: Yes Hx Pulmonary Embolism: No Hx Sleep Apnea: No - NEUROLOGICAL Hx Alzheimer's Disease: Yes Hx Dementia: Yes Hx Migraine: Yes Hx Multiple Sclerosis: No Hx Parkinson's Disease: No Hx Seizures: No Hx Transient Ischemic Attacks (TIA): Yes - HEENT Hx HEENT Problems: Yes Hx Blind: No Hx Cataracts: Yes Hx Deafness: No Hx Difficulty Chewing: No Hx Epistaxis: No Hx Glaucoma: Yes Hx Macular Degeneration: No Other/Comment: corneal transplant - RENAL Hx Chronic Kidney Disease: No - ENDOCRINE/METABOLIC Hx Hyperthyroidism: No Hx Hypothyroidism: Yes - HEMATOLOGICAL/ONCOLOGICAL Hx Anemia: Yes Hx Human Immunodeficiency Virus (HIV): No Hx Sickle Cell Disease: No - INTEGUMENTARY Hx Dermatological Problems: No Hx Basil Cell: No Hx Duke: No Hx Cellulitis: No Hx Eczema: No Hx Melanoma: No Hx Psoriasis: No Hx Squamous Cell: No - MUSCULOSKELETAL/RHEUMATOLOGICAL Hx Arthritis: No Hx Fractures: Yes (rt wrist/elbow) Hx Osteoporosis: No Hx Rheumatoid Arthritis: No - GASTROINTESTINAL Hx Crohn's Disease: No Hx Diverticulitis: Yes (Diverticulosis) Hx Gall Bladder Disease: No Hx Gastritis: Yes Hx Pancreatitis: No - GENITOURINARY/GYNECOLOGICAL Hx Sexually Transmitted Disorders: No - PSYCHIATRIC Hx Anxiety: Yes Hx Bipolar Disorder: No Hx Depression: Yes Hx Paranoia: No Hx Post Traumatic Stress Disorder: No Hx Schizophrenia: No - SURGICAL HISTORY Hx Appendectomy: No Hx Carotid Endarterectomy: No Hx Cholecystectomy: No Hx Coronary Artery Bypass Graft: No Hx Coronary Stent: No Hx Tonsillectomy: Yes (partial thyroidectomy) - ANESTHESIA Hx Anesthesia: Yes Hx Anesthesia Reactions: Yes (HALLUCINATION, CONFUSION) Hx Malignant Hyperthermia: No Meds Allergies/Adverse Reactions: Allergies Allergy/AdvReac Type Severity Reaction Status Date / Time aspirin Allergy NAUSEA Verified 08/25/18 15:58 ciprofloxacin Allergy REDNESS Verified 08/25/18 15:58 Sulfa (Sulfonamide Allergy RASH Verified 08/25/18 15:58 Antibiotics) Iodinated Contrast- Oral and AdvReac VOMITING Verified 08/25/18 15:58 IV Dye metformin AdvReac DIARRHEA Verified 08/25/18 15:58 - Medications Medications: Current Medications Acetaminophen/Butalbital/Caffeine (Fioricet) 1 tab PO Q8H PRN PRN Reason: Migraine headache Artificial Tears (Lacri-Lube) 1 applic OD HS [facility] Artificial Tears (Refresh Opth Soln) 0.1 ml OS TID [facility] Atorvastatin Calcium (Lipitor) 40 mg PO HS [facility] Last Admin: 08/26/18 00:06 Dose: 40 mg Brimonidine Tartrate (Alphagan 0.2% Opht) 1 drop OU TID [facility] Cholecalciferol (Vitamin D) 1,000 intlu PO DAILY [facility] Clopidogrel Bisulfate (Plavix) 75 mg PO DAILY [facility] Collagenase (Santyl) 1 applic TOP BID [facility] Dimethicone (Proshield Plus Skin Protectant) 1 applic TOP Q8 [facility] Docusate Sodium (Colace) 100 mg PO BID [facility] Last Admin: 08/26/18 00:06 Dose: 100 mg Donepezil HCl (Aricept) 10 mg PO HS [facility] Last Admin: 08/26/18 00:06 Dose: 10 mg Famotidine (Pepcid) 20 mg PO BID [facility] Home Med (Cranberry Fruit Extract/Vit C [Azo Cranberry Softgel]) 1 cap PO DAILY [facility] Home Med (Cyclosporine [Restasis]) 1 drop LEFTEYE Q12H [facility] Home Med (L Gasseri/B Bifidum/B Longum [[facility] Capsule]) 1 cap PO DAILY [facility] Meropenem 500 mg/ Sodium (Chloride) 100 mls @ 100 mls/hr IVPB Q8 [facility]; Protocol Potassium Chloride 40 meq/ (Dextrose/Lactated Ringer's) 1,020 mls @ 80 mls/hr IV .[id number] [facility] Stop: 08/26/18 22:58 Last Admin: 08/26/18 00:16 Dose: 80 mls/hr Insulin Human Regular (Humulin R) 0 units SC ACCU-CHECK [facility]; Protocol Insulin Lispro Protam/Lispro Human (Humalog Mix 75/25) 5 units SC DIN [facility] Insulin Lispro Protam/Lispro Human (Humalog Mix 75/25) 11 units SC BRK [facility] Latanoprost (Xalatan Opht) 1 drop OS HS [facility] Levothyroxine Sodium (Synthroid) 75 mcg PO DAILY@0630 [facility] Losartan Potassium (Cozaar) 50 mg PO DAILY [facility] Meclizine HCl (Antivert) 25 mg PO TID PRN PRN Reason: Dizziness Memantine (Namenda) 10 mg PO Q12 [facility] Last Admin: 08/26/18 00:18 Dose: 10 mg Metoprolol Tartrate (Lopressor) 12.5 mg PO DAILY PRN PRN Reason: SBP >139 Nystatin (Nystop Topical Powder) 1 applic TOP TID [facility] Prednisolone Acetate (Pred Forte 1% Opht Susp) 1 drop OS QID [facility] Sertraline HCl (Zoloft) 50 mg PO HS [facility] Last Admin: 08/26/18 00:07 Dose: 50 mg Sitagliptin Phosphate (Januvia) 50 mg PO DAILY [facility] Timolol Maleate (Timoptic 0.5% Ophth Soln) 1 drop OS Q12 [facility] Last Admin: 08/26/18 00:19 Dose: 1 drop Results - Vital Signs Recent Vital Signs: Last Vital Signs Temp 97.6 F 08/25/18 22:21 Pulse 63 08/25/18 22:21 Resp 20 08/25/18 22:21 BP 155/73 H 08/25/18 22:21 Pulse Ox 97 08/25/18 22:21 - Labs Result Diagrams: 08/25/18 16:52 08/25/18 16:52 Labs: Laboratory Results - last 24 hr 08/25/18 08/25/18 08/25/18 16:37 16:52 16:52 WBC 8.0 RBC 3.80 Hgb 11.2 L Hct 34.5 MCV 90.8 D MCH 29.5 MCHC 32.5 L RDW 15.0 H Plt Count 202 MPV 9.6 Neut % (Auto) 45.7 L Lymph % (Auto) 41.5 H [place] % (Auto) 10.1 H Eos % (Auto) 2.1 Baso % (Auto) 0.6 Neut # (Auto) 3.7 Lymph # (Auto) 3.3 [place] # (Auto) 0.8 Eos # (Auto) 0.2 Baso # (Auto) 0.0 PT INR APTT Sodium 136 Potassium 3.2 L Chloride 95 L Carbon Dioxide 29 Anion Gap 15 BUN 20 H Creatinine 0.7 Est GFR ( Amer) > 60 Est GFR (Non-Af Amer) > 60 POC Glucose (mg/dL) 171 H Random Glucose 174 H Calcium 9.3 Total Bilirubin 0.3 AST 28 ALT 26 Alkaline Phosphatase 53 Troponin I < 0.0120 NT-Pro-B Natriuret Pep 1150 H Total Protein 6.8 Albumin 3.4 L D Globulin 3.4 Albumin/Globulin Ratio 1.0 Lipase 60 Urine Color Urine Clarity Urine pH Ur Specific [place] Urine Protein Urine Glucose (UA) Urine Ketones Urine Blood Urine Nitrate Urine Bilirubin Urine Urobilinogen Ur Leukocyte Esterase Urine RBC (Auto) Urine Microscopic WBC Amorphous Sediment Urine Bacteria 08/25/18 08/25/18 16:52 19:19 WBC RBC Hgb Hct MCV MCH MCHC RDW Plt Count MPV Neut % (Auto) Lymph % (Auto) [place] % (Auto) Eos % (Auto) Baso % (Auto) Neut # (Auto) Lymph # (Auto) [place] # (Auto) Eos # (Auto) Baso # (Auto) PT 12.0 INR 1.1 APTT 27.8 Sodium Potassium Chloride Carbon Dioxide Anion Gap BUN Creatinine Est GFR ( Amer) Est GFR (Non-Af Amer) POC Glucose (mg/dL) Random Glucose Calcium Total Bilirubin AST ALT Alkaline Phosphatase Troponin I NT-Pro-B Natriuret Pep Total Protein Albumin Globulin Albumin/Globulin Ratio Lipase Urine Color Yellow Urine Clarity Cloudy Urine pH 6.0 Ur Specific [place] 1.008 Urine Protein 30 Urine Glucose (UA) Neg Urine Ketones Negative Urine Blood Small Urine Nitrate Negative Urine Bilirubin Negative Urine Urobilinogen 0.2-1.0 Ur Leukocyte Esterase Neg Urine RBC (Auto) 10 H Urine Microscopic WBC 3 Amorphous Sediment Rare H Urine Bacteria Rare
[2018-08-26] MEDS: Meropenem 500 MG in Sodium Chloride 0.9% 100 ML IVPB SCH ×3 (01:32→17:28)
[2018-08-26] MEDS: Proshield Plus GEL TOP SCH ×3 (01:36→17:26)
[2018-08-26] MEDS: Santyl Collagenase OINTMENT TOP SCH ×3 (01:37→17:22)
[2018-08-26] MEDS: Levothyroxine 75 MCG TAB PO SCH (06:19)
[2018-08-26 06:32] LABS: BASO % 0.7 % (0.0-2.0); EOS # 0.1 K/uL (0.0-0.7); EOS % 2.2 % (0.0-4.0); HEMOGLOBIN 10.9 g/dL (12.0-16.0); LYMPH # 1.4 K/uL (1.0-4.3); LYMPH % 22.6 % (20.0-40.0); MEAN CELL VOLUME 89.5 fl (81.0-99.0); MEAN CORPUSCULAR HEMOGLOBIN 30.1 pg (27.0-31.0); MEAN CORPUSCULAR HGB CONC 33.6 g/dL (33.0-37.0); MONO # 0.5 K/uL (0.0-0.8); MONO % 7.9 % (0.0-10.0); NEUT # 4.2 K/uL (1.8-7.0); NEUT % 66.6 % (50.0-75.0); RBC 3.64 Mil/uL (3.80-5.20); RED CELL DISTRIBUTION WIDTH 14.9 % (11.5-14.5); WHITE BLOOD COUNT 6.3 K/uL (4.8-10.8)
[2018-08-26 06:45] LABS: ALBUMIN 3.3 g/dL (3.5-5.0); ALT/SGPT 39 U/L (9-52); AST/SGOT 32 U/L (14-36); BLOOD UREA NITROGEN 17 mg/dl (7-17); CALCIUM 9.4 mg/dL (8.4-10.2); GFR NON-AFRICAN AMERICAN > 60
[2018-08-26] MEDS ORDERED: Brimonidine 0.2% 50 DROP/5 ML BOTTLE OU SCH (09:00)
[2018-08-26] MEDS ORDERED: GASSERI PO SCH (09:00)
[2018-08-26] MEDS ORDERED: B LONGUM PO SCH (09:00)
[2018-08-26] MEDS ORDERED: VIT C PO SCH (09:00)
[2018-08-26] MEDS ORDERED: B BIFIDUM PO SCH (09:00)
[2018-08-26] MEDS ORDERED: CRANBERRY FRUIT EXTRACT PO SCH (09:00)
[2018-08-26] MEDS: Insulin Lispro Mix 75/25 100 units/ml (HumaLog) 10ml SC SCH ×2 (09:01→17:21)
[2018-08-26] MEDS: Insulin Regular 100 units/ml SC SCH ×5 (09:01→22:20)
[2018-08-26] MEDS: Cholecalciferol 1,000 INTLU TAB PO SCH (09:02)
[2018-08-26] MEDS: PrednisoLONE 1% OPTH SUSP OS SCH ×4 (09:04→21:30)
[2018-08-26] MEDS: Lubricant Eye Drops UD OS SCH ×3 (09:05→17:26)
[2018-08-26] MEDS: Enoxaparin 40 mg Syringe SC SCH (12:29)
--- NOTE | 2018-08-26 13:06 | CP.PCM.CON ---
History of Present Illness - History of Present Illness History of Present Illness: 83 y/o female with a PMHx of Diabetes brought for evaluation of an altered mental status.. Patient has hx of recurrent UTI. Referred for ID [email or web address] Has hx of ESBL UTI in past Started on Merrem IV rx PMHx: IDDM type 2, HTN, hypothyroidism, CVA with b/l blindess, left side weakness, , diverticulitis, advanced dementia, recurrent UTI SurgHx: partial thyroidectomy, tonsillectomy FMHx: noncontributory SHx: denies tobacco/Etoh or drugs Allergies: sulfanamide antibiotics, iodine contrast, metformin; aspirin listed but pt takes at home and has taken in hospital before Meds as bellow Review of Systems - Review of Systems Systems not reviewed;Unavailable: Altered Mental Status All systems: reviewed and no additional remarkable complaints except - Constitutional Constitutional: As Per HPI - EENT Eyes: absent: As Per HPI, Blind Spots, Blurred Vision, Change in Vision, Decreased Night Vision, Diplopia, Discharge, Dry Eye, Exophthalmos, Floaters, Irritation, Itchy Eyes, Loss of Peripheral Vision, Pain, Photophobia, Requires Corrective Lenses, Sees Flashes, Spots in Vision, Tunnel Vision, Other Visual Disturbances, Loss of Vision, Other Ears: absent: As Per HPI, Decreased Hearing, Ear Discharge, Ear Pain, Tinnitus, Abnormal Hearing, Disequilibrium, Dizziness, Other Nose/Mouth/Throat: absent: As Per HPI, Epistaxis, Nasal Congestion, Nasal Discharge, Nasal Obstruction, Nasal Trauma, Nose Pain, Post Nasal Drip, Sinus Pain, Sinus Pressure, Bleeding Gums, Change in Voice, Dental Pain, Dry Mouth, Dysphagia, Halitosis, Hoarsness, Lip Swelling, Mouth Lesions, Mouth Pain, Odynophagia, Sore Throat, Throat Swelling, Tongue Swelling, Facial Pain, Neck Pain, Neck Mass, Other - Breasts Breasts: absent: As Per HPI, Change in Shape, Mass, Pain, Nipple Discharge, Nipple Inversion, Skin Changes, Swelling, Other - Cardiovascular Cardiovascular: absent: As Per HPI, Acrocyanosis, Chest Pain, Chest Pain at Rest, Chest Pain with Activity, Claudication, Diaphoresis, Dyspnea, Dyspnea on Exertion, Edema, Irregular Heart Rhythm, Pain Radiating to Arm/Neck/Jaw, Leg Edema, Leg Ulcers, Lightheadedness, Orthopnea, Palpitations, Paroxysmal Nocturnal Dyspnea, Pedal Edema, Radiating Pain, Rapid Heart Rate, Slow Heart Rate, Syncope, Other - Respiratory Respiratory: absent: As Per HPI, Cough, Dyspnea, Hemoptysis, Dyspnea on Exertion, Wheezing, Snoring, Stridor, Pain on Inspiration, Chest Congestion, Excessive Mucous Production, Change in Mucous Color, Pain with Coughing, Other - Gastrointestinal Gastrointestinal: absent: As Per HPI, Abdominal Pain, Belching, Bloating, Change in Bowel Habits, Change in Stool Character, Coffee Ground Emesis, Constipation, Cramping, Diarrhea, Dyspepsia, Dysphagia, Early Satiety, Excessive Flatus, Fecal Incontinence, Heartburn, Hematemesis, Hematochezia, Loose Stools, Melena, Nausea, Odynophagia, Temesmus, Vomiting, Other - Genitourinary Genitourinary: As Per HPI - Reproductive: Female Reproductive:Female: absent: As Per HPI, Amenorrhea, Amenorrhea/ Control, Currently Menstual, Cycle <21 Days, Cycle >35 Days, Cycle Variable, Menses 1-7 Days, Menses >/= 8 Days, Menses Variable, Cycle > 4 Weeks Between, No Menses for 6 Months, Heavy Menses, Light Menses, Normal Menses, Spotting Between Cycles, S/P Hysterectomy, Menopausal, Post Menopausal, Premenarche, Abnormal Vaginal Bleeding, Dysmenorrhea, Dyspareunia, Genital Lesions, Genital Pruritis, Pelvic Pain, Prolapse Symptoms, Sexual Dysfunction, Vaginal Discharge, Vaginal Dryness, Vaginal Odor, Vaginal Pruritis, Other - Menstruation Menstruation: absent: As Per HPI, Amenorrhea, Amenorrhea/ Control, Currently Menstual, Cycle <21 Days, Cycle >35 Days, Cycle Variable, Menses 1-7 Days, Menses >/= 8 Days, Menses Variable, Cycle > 4 Weeks Between, No Menses for 6 Months, Heavy Menses, Light Menses, Normal Menses, Spotting Between Cycles, S/P Hysterectomy, Menopausal, Post Menopausal, Premenarche, Abnormal Vaginal Bleeding, Dysmenorrhea, Other - Musculoskeletal Musculoskeletal: absent: As Per HPI, Abnormal Gait, Arthralgias, Atrophy, Back Pain, Deformity, Joint Swelling, Limited Range of Motion, Loss of Height, Muscle Cramps, Muscle Weakness, Myalgias, Neck Pain, Numbness, Radiating Pain into Limb, Stiffness, Tingling, Other - Integumentary Integumentary: absent: As Per HPI, Acne, Alopecia, Bleeding Lesions, Change in Hair, Change in Nails, Change in Pigmentation, Changing Lesions, Dry Skin, Erythema, Furuncle, Hirsutism, Lesions, New Lesions, Non-Healing Lesions, Photosensitivity, Pruritus, Rash, Skin Pain, Skin Ulcer, Sores, Striae, Swelling, Unusual Bruising, Wounds, Jaundice, Other - Neurological Neurological: As Per HPI - Psychiatric Psychiatric: As Per HPI - Endocrine Endocrine: absent: As Per HPI, Change in Body Appearance, Change in Libido, Cold Intolorance, Deepening of Voice, Excessive Sweating, Fatigue, Flushing, Heat Intolorance, Increase in Ring/Shoe/Hat Size, Palpitations, Polydipsia, Polyphagia, Polyuria, Other - Hematologic/Lymphatic Hematologic: absent: As Per HPI, Easy Bleeding, Easy Bruising, Lymphadenopathy, Other Past Patient History - Infectious Disease Hx of Infectious Diseases: None - Tetanus Immunizations Tetanus Immunization: Unknown - Past Medical History & Family History Past Medical History?: Yes - Past Social History Smoking Status: Never Smoked - CARDIAC Hx Cardiac Disorders: Yes Hx Atrial Fibrillation: No Hx Cardia Arrhythmia: No Hx Congestive Heart Failure: Yes Hx Hypercholesterolemia: Yes Hx Hypertension: Yes Hx Mitral Valve Prolapse: No Hx Pacemaker: No Hx Peripheral Edema: Yes (occasional lower extremities) - PULMONARY Hx Respiratory Disorders: Yes Hx Asthma: No Hx Bronchitis: No Hx Chronic Obstructive Pulmonary Disease (COPD): No Hx Emphysema: No Hx Pneumonia: Yes Hx Pulmonary Embolism: No Hx Sleep Apnea: No - NEUROLOGICAL Hx Neurological Disorder: Yes Hx Alzheimer's Disease: Yes Hx Dementia: Yes Hx Migraine: Yes Hx Multiple Sclerosis: No Hx Parkinson's Disease: No Hx Seizures: No Hx Transient Ischemic Attacks (TIA): Yes - HEENT Hx HEENT Problems: Yes Hx Blind: No Hx Cataracts: Yes Hx Deafness: No Hx Difficulty Chewing: No Hx Epistaxis: No Hx Glaucoma: Yes Hx Macular Degeneration: No Other/Comment: corneal transplant - RENAL Hx Chronic Kidney Disease: No - ENDOCRINE/METABOLIC Hx Endocrine Disorders: Yes Hx Diabetes Mellitus Type 2: Yes Hx Hyperthyroidism: No Hx Hypothyroidism: Yes - HEMATOLOGICAL/ONCOLOGICAL Hx Blood Disorders: Yes Hx Anemia: Yes Hx Human Immunodeficiency Virus (HIV): No Hx Sickle Cell Disease: No - INTEGUMENTARY Hx Dermatological Problems: No Hx Basil Cell: No Hx Duke: No Hx Cellulitis: No Hx Eczema: No Hx Melanoma: No Hx Psoriasis: No Hx Squamous Cell: No - MUSCULOSKELETAL/RHEUMATOLOGICAL Hx Musculoskeletal Disorders: Yes Hx Arthritis: No Hx Falls: Yes Hx Fractures: Yes (rt wrist/elbow) Hx Osteoporosis: No Hx Rheumatoid Arthritis: No - GASTROINTESTINAL Hx Gastrointestinal Disorders: Yes Hx Crohn's Disease: No Hx Diverticulitis: Yes (Diverticulosis) Hx Gall Bladder Disease: No Hx Gastritis: Yes Hx Pancreatitis: No - GENITOURINARY/GYNECOLOGICAL Hx Genitourinary Disorders: No Hx Sexually Transmitted Disorders: No - PSYCHIATRIC Hx Psychophysiologic Disorder: Yes Hx Anxiety: Yes Hx Bipolar Disorder: No Hx Depression: Yes Hx Paranoia: No Hx Post Traumatic Stress Disorder: No Hx Schizophrenia: No Hx Substance Use: No - SURGICAL HISTORY Hx Surgeries: Yes Hx Appendectomy: No Hx Carotid Endarterectomy: No Hx Cholecystectomy: No Hx Coronary Artery Bypass Graft: No Hx Coronary Stent: No Hx Thyroidectomy: Yes (partial thyroidectomy) - ANESTHESIA Hx Anesthesia: Yes Hx Anesthesia Reactions: Yes (HALLUCINATION, CONFUSION) Hx Malignant Hyperthermia: No Meds Allergies/Adverse Reactions: Allergies Allergy/AdvReac Type Severity Reaction Status Date / Time aspirin Allergy NAUSEA Verified 08/25/18 15:58 ciprofloxacin Allergy REDNESS Verified 08/25/18 15:58 Sulfa (Sulfonamide Allergy RASH Verified 08/25/18 15:58 Antibiotics) Iodinated Contrast- Oral and AdvReac VOMITING Verified 08/25/18 15:58 IV Dye metformin AdvReac DIARRHEA Verified 08/25/18 15:58 - Medications Medications: Current Medications Acetaminophen/Butalbital/Caffeine (Fioricet) 1 tab PO Q8H PRN PRN Reason: Migraine headache Artificial Tears (Lacri-Lube) 1 applic OD [facility] Artificial Tears (Refresh Opth Soln) 0.1 ml OS TID [facility] Last Admin: 08/26/18 12:30 Dose: 0.1 ml Atorvastatin Calcium (Lipitor) 40 mg PO HS [facility] Last Admin: 08/26/18 00:06 Dose: 40 mg Brimonidine Tartrate (Alphagan 0.2% Opht) 1 drop OS Q12 [facility] Cholecalciferol (Vitamin D) 1,000 intlu PO DAILY [facility] Last Admin: 08/26/18 09:02 Dose: 1,000 intlu Clopidogrel Bisulfate (Plavix) 75 mg PO DAILY [facility] Last Admin: 08/26/18 09:04 Dose: 75 mg Collagenase (Santyl) 1 applic TOP BID [facility] Last Admin: 08/26/18 12:31 Dose: Not Given Dimethicone (Proshield Plus Skin Protectant) 1 applic TOP Q8 [facility] Last Admin: 08/26/18 09:04 Dose: 1 applic Docusate Sodium (Colace) 100 mg PO BID [facility] Last Admin: 08/26/18 09:00 Dose: 100 mg Donepezil HCl (Aricept) 10 mg PO HS [facility] Last Admin: 08/26/18 00:06 Dose: 10 mg Enoxaparin Sodium (Lovenox) 40 mg SC DAILY [facility]; Protocol Last Admin: 08/26/18 12:29 Dose: 40 mg Famotidine (Pepcid) 20 mg PO BID [facility] Last Admin: 08/26/18 09:02 Dose: 20 mg Home Med (Cranberry Fruit Extract/Vit C [Azo Cranberry Softgel]) 1 cap PO DAILY [facility] Home Med (Cyclosporine [Restasis]) 1 drop LEFTEYE Q12H [facility] Home Med (L Gasseri/B Bifidum/B Longum [[facility] Colon Health Capsule]) 1 cap PO DAILY [facility] Meropenem 500 mg/ Sodium (Chloride) 100 mls @ 100 mls/hr IVPB Q8 [facility]; Protocol Last Admin: 08/26/18 09:06 Dose: 100 mls/hr Potassium Chloride 40 meq/ (Dextrose/Lactated Ringer's) 1,020 mls @ 80 mls/hr IV .[id number] [facility] Stop: 08/26/18 22:58 Last Admin: 08/26/18 12:31 Dose: Not Given Insulin Human Regular (Humulin R) 0 units SC ACCU-CHECK [facility]; Protocol Last Admin: 08/26/18 12:28 Dose: 8 units Insulin Lispro Protam/Lispro Human (Humalog Mix 75/25) 5 units SC DIN [facility] Insulin Lispro Protam/Lispro Human (Humalog Mix 75/25) 11 units SC BRK [facility] Last Admin: 08/26/18 09:01 Dose: 11 units Latanoprost (Xalatan Opht) 1 drop OS HS [facility] Levothyroxine Sodium (Synthroid) 75 mcg PO DAILY@0630 [facility] Last Admin: 08/26/18 06:19 Dose: 75 mcg Losartan Potassium (Cozaar) 50 mg PO DAILY@1700 [facility] Meclizine HCl (Antivert) 25 mg PO TID PRN PRN Reason: Dizziness Memantine (Namenda) 10 mg PO Q12 [facility] Last Admin: 08/26/18 09:03 Dose: 10 mg Metoprolol Tartrate (Lopressor) 12.5 mg PO DAILY PRN PRN Reason: SBP >139 Last Admin: 08/26/18 09:09 Dose: 12.5 mg Nystatin (Nystop Topical Powder) 1 applic TOP TID [facility] Last Admin: 08/26/18 12:30 Dose: 1 applic Prednisolone Acetate (Pred Forte 1% Opht Susp) 1 drop OS QID [facility] Last Admin: 08/26/18 12:30 Dose: 1 drop Sertraline HCl (Zoloft) 50 mg PO HS [facility] Last Admin: 08/26/18 00:07 Dose: 50 mg Sitagliptin Phosphate (Januvia) 50 mg PO DAILY [facility] Last Admin: 08/26/18 09:02 Dose: 50 mg Timolol Maleate (Timoptic 0.5% Ophth Soln) 1 drop OS Q12 [facility] Last Admin: 08/26/18 09:05 Dose: 1 drop Physical Exam - Constitutional Appears: Non-toxic, No Acute Distress, Confused, Chronically Ill - Head Exam Head Exam: ATRAUMATIC, NORMAL INSPECTION, NORMOCEPHALIC - Eye Exam Eye Exam: EOMI. absent: Scleral icterus Additional comments: decreased visual acuity - ENT Exam ENT Exam: Normal Oropharynx. absent: Mucous Membranes Dry - Neck Exam Neck exam: Negative for: Lymphadenopathy - Respiratory Exam Respiratory Exam: Decreased Breath Sounds, Rhonchi - Cardiovascular Exam Cardiovascular Exam: REGULAR RHYTHM, +S1, +S2 - GI/Abdominal Exam GI & Abdominal Exam: Diminished Bowel Sounds, Soft. absent: Tenderness - Rectal Exam Rectal Exam: Deferred - Exam Exam: NORMAL INSPECTION - Extremities Exam Extremities exam: Positive for: pedal pulses present. Negative for: calf tenderness, pedal edema, tenderness - Back Exam Back exam: absent: CVA tenderness (L), CVA tenderness (R) - Neurological Exam Neurological exam: Alert, Altered - Psychiatric Exam Psychiatric exam: Depressed - Skin Skin Exam: Dry, Intact Results - Vital Signs Recent Vital Signs: Last Vital Signs Temp 97.8 F 08/26/18 08:13 Pulse 76 08/26/18 09:09 Resp 19 08/26/18 08:13 BP 164/84 H 08/26/18 09:09 Pulse Ox 96 08/26/18 08:13 - Labs Result Diagrams: 08/26/18 06:00 08/26/18 06:00 Labs: Laboratory Results - last 24 hr 08/25/18 08/25/18 08/25/18 16:37 16:37 16:52 WBC RBC Hgb Hct MCV MCH MCHC RDW Plt Count MPV Neut % (Auto) Lymph % (Auto) Johnston % (Auto) Eos % (Auto) Baso % (Auto) Neut # (Auto) Lymph # (Auto) Johnston # (Auto) Eos # (Auto) Baso # (Auto) PT INR APTT Sodium 136 Potassium 3.2 L Chloride 95 L Carbon Dioxide 29 Anion Gap 15 BUN 20 H Creatinine 0.7 Est GFR ( Amer) > 60 Est GFR (Non-Af Amer) > 60 POC Glucose (mg/dL) 171 H 171 H Random Glucose 174 H Calcium 9.3 Total Bilirubin 0.3 AST 28 ALT 26 Alkaline Phosphatase 53 Troponin I < 0.0120 NT-Pro-B Natriuret Pep 1150 H Total Protein 6.8 Albumin 3.4 L D Globulin 3.4 Albumin/Globulin Ratio 1.0 Lipase 60 Urine Color Urine Clarity Urine pH Ur Specific Cummings Urine Protein Urine Glucose (UA) Urine Ketones Urine Blood Urine Nitrate Urine Bilirubin Urine Urobilinogen Ur Leukocyte Esterase Urine RBC (Auto) Urine Microscopic WBC Amorphous Sediment Urine Bacteria 08/25/18 08/25/18 08/25/18 16:52 16:52 19:19 WBC 8.0 RBC 3.80 Hgb 11.2 L Hct 34.5 MCV 90.8 D MCH 29.5 MCHC 32.5 L RDW 15.0 H Plt Count 202 MPV 9.6 Neut % (Auto) 45.7 L Lymph % (Auto) 41.5 H Johnston % (Auto) 10.1 H Eos % (Auto) 2.1 Baso % (Auto) 0.6 Neut # (Auto) 3.7 Lymph # (Auto) 3.3 Johnston # (Auto) 0.8 Eos # (Auto) 0.2 Baso # (Auto) 0.0 PT 12.0 INR 1.1 APTT 27.8 Sodium Potassium Chloride Carbon Dioxide Anion Gap BUN Creatinine Est GFR ( Amer) Est GFR (Non-Af Amer) POC Glucose (mg/dL) Random Glucose Calcium Total Bilirubin AST ALT Alkaline Phosphatase Troponin I NT-Pro-B Natriuret Pep Total Protein Albumin Globulin Albumin/Globulin Ratio Lipase Urine Color Yellow Urine Clarity Cloudy Urine pH 6.0 Ur Specific Cummings 1.008 Urine Protein 30 Urine Glucose (UA) Neg Urine Ketones Negative Urine Blood Small Urine Nitrate Negative Urine Bilirubin Negative Urine Urobilinogen 0.2-1.0 Ur Leukocyte Esterase Neg Urine RBC (Auto) 10 H Urine Microscopic WBC 3 Amorphous Sediment Rare H Urine Bacteria Rare 08/26/18 08/26/18 08/26/18 05:25 06:00 06:00 WBC 6.3 RBC 3.64 L Hgb 10.9 L Hct 32.6 L MCV 89.5 MCH 30.1 MCHC 33.6 RDW 14.9 H Plt Count 306 D MPV 9.0 Neut % (Auto) 66.6 Lymph % (Auto) 22.6 Johnston % (Auto) 7.9 Eos % (Auto) 2.2 Baso % (Auto) 0.7 Neut # (Auto) 4.2 Lymph # (Auto) 1.4 Johnston # (Auto) 0.5 Eos # (Auto) 0.1 Baso # (Auto) 0.0 PT INR APTT Sodium 138 Potassium 3.6 Chloride 97 L Carbon Dioxide 29 Anion Gap 16 BUN 17 Creatinine 0.6 L Est GFR ( Amer) > 60 Est GFR (Non-Af Amer) > 60 POC Glucose (mg/dL) 245 H Random Glucose 269 H Calcium 9.4 Total Bilirubin 0.3 AST 32 ALT 39 Alkaline Phosphatase 70 Troponin I NT-Pro-B Natriuret Pep Total Protein 6.7 Albumin 3.3 L Globulin 3.4 Albumin/Globulin Ratio 1.0 Lipase Urine Color Urine Clarity Urine pH Ur Specific Cummings Urine Protein Urine Glucose (UA) Urine Ketones Urine Blood Urine Nitrate Urine Bilirubin Urine Urobilinogen Ur Leukocyte Esterase Urine RBC (Auto) Urine Microscopic WBC Amorphous Sediment Urine Bacteria 08/26/18 10:46 WBC RBC Hgb Hct MCV MCH MCHC RDW Plt Count MPV Neut % (Auto) Lymph % (Auto) Johnston % (Auto) Eos % (Auto) Baso % (Auto) Neut # (Auto) Lymph # (Auto) Johnston # (Auto) Eos # (Auto) Baso # (Auto) PT INR APTT Sodium Potassium Chloride Carbon Dioxide Anion Gap BUN Creatinine Est GFR ( Amer) Est GFR (Non-Af Amer) POC Glucose (mg/dL) 340 H Random Glucose Calcium Total Bilirubin AST ALT Alkaline Phosphatase Troponin I NT-Pro-B Natriuret Pep Total Protein Albumin Globulin Albumin/Globulin Ratio Lipase Urine Color Urine Clarity Urine pH Ur Specific Cummings Urine Protein Urine Glucose (UA) Urine Ketones Urine Blood Urine Nitrate Urine Bilirubin Urine Urobilinogen Ur Leukocyte Esterase Urine RBC (Auto) Urine Microscopic WBC Amorphous Sediment Urine Bacteria Assessment & Plan (1) Altered mental status Status: Acute Priority: High (2) Diabetes mellitus type 2 in obese Status: Acute (3) Urinary tract infection Status: Acute - Assessment and Plan (Free Text) Assessment: await cultures cont IV rx for possible ESBL UTI
--- NOTE | 2018-08-26 15:22 | CARD ---
APPROVED REPORT Date of service: 08/25/2018 EKG Measurement Heart [id number] <Conclusion> Sinus bradycardia Nonspecific T wave abnormality Prolonged QT Abnormal ECG
[2018-08-26] MEDS: Brimonidine 0.2% 50 DROP/5 ML BOTTLE OS SCH (21:33)
[2018-08-26] MEDS: Latanoprost 0.005% Opht SOUTION OS SCH (21:41)
[2018-08-26] MEDS: Mineral Oil/White Petrolatum Ophth Oint OD SCH (22:20)
--- NOTE | 2018-08-27 00:08 | CP.PCM.HP ---
History of Present Illness - History of Present Illness History of Present Illness: HPI: 83 y/o female with a PMH of Alzheimer's, CVA, DM, and HTN presented to the ED for evaluation of AMS. As per ED, pt has a hx of urosepsis admits. Also of note, pt has multi-antibiotic allergies. CT head revealed stable, age related changes, without acute pathology. At this time, the clinical impression is UTI; awaiting urine and blood cultures for specific causative organism. 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 Allergies: Aspirin, Ciprofloxacin, Sulfa (sulfonamide antibiotics), metformin, and iodinated contrast. Present on Admission - Present on Admission Any Indicators Present on Admission: Yes Decubitus Ulcer Stage: II (stage 2 sacral ulcer present on admission.) Review of Systems - Review of Systems All systems: reviewed and no additional remarkable complaints except Review of Systems: mild confusion, weakness, fatigue. Past Patient History - Infectious Disease Hx of Infectious Diseases: None - Tetanus Immunizations Tetanus Immunization: Unknown - Past Medical History & Family History Past Medical History?: Yes - Past Social History Smoking Status: Never Smoked - CARDIAC Hx Cardiac Disorders: Yes Hx Atrial Fibrillation: No Hx Cardia Arrhythmia: No Hx Congestive Heart Failure: Yes Hx Hypercholesterolemia: Yes Hx Hypertension: Yes Hx Mitral Valve Prolapse: No Hx Pacemaker: No Hx Peripheral Edema: Yes (occasional lower extremities) - PULMONARY Hx Respiratory Disorders: Yes Hx Asthma: No Hx Bronchitis: No Hx Chronic Obstructive Pulmonary Disease (COPD): No Hx Emphysema: No Hx Pneumonia: Yes Hx Pulmonary Embolism: No Hx Sleep Apnea: No - NEUROLOGICAL Hx Neurological Disorder: Yes Hx Alzheimer's Disease: Yes Hx Dementia: Yes Hx Migraine: Yes Hx Multiple Sclerosis: No Hx Parkinson's Disease: No Hx Seizures: No Hx Transient Ischemic Attacks (TIA): Yes - HEENT Hx HEENT Problems: Yes Hx Blind: No Hx Cataracts: Yes Hx Deafness: No Hx Difficulty Chewing: No Hx Epistaxis: No Hx Glaucoma: Yes Hx Macular Degeneration: No Other/Comment: corneal transplant - RENAL Hx Chronic Kidney Disease: No - ENDOCRINE/METABOLIC Hx Endocrine Disorders: Yes Hx Diabetes Mellitus Type 2: Yes Hx Hyperthyroidism: No Hx Hypothyroidism: Yes - HEMATOLOGICAL/ONCOLOGICAL Hx Blood Disorders: Yes Hx Anemia: Yes Hx Human Immunodeficiency Virus (HIV): No Hx Sickle Cell Disease: No - INTEGUMENTARY Hx Dermatological Problems: No Hx Basil Cell: No Hx Duke: No Hx Cellulitis: No Hx Eczema: No Hx Melanoma: No Hx Psoriasis: No Hx Squamous Cell: No - MUSCULOSKELETAL/RHEUMATOLOGICAL Hx Musculoskeletal Disorders: Yes Hx Arthritis: No Hx Falls: Yes Hx Fractures: Yes (rt wrist/elbow) Hx Osteoporosis: No Hx Rheumatoid Arthritis: No - GASTROINTESTINAL Hx Gastrointestinal Disorders: Yes Hx Crohn's Disease: No Hx Diverticulitis: Yes (Diverticulosis) Hx Gall Bladder Disease: No Hx Gastritis: Yes Hx Pancreatitis: No - GENITOURINARY/GYNECOLOGICAL Hx Genitourinary Disorders: No Hx Sexually Transmitted Disorders: No - PSYCHIATRIC Hx Psychophysiologic Disorder: Yes Hx Anxiety: Yes Hx Bipolar Disorder: No Hx Depression: Yes Hx Paranoia: No Hx Post Traumatic Stress Disorder: No Hx Schizophrenia: No Hx Substance Use: No - SURGICAL HISTORY Hx Surgeries: Yes Hx Appendectomy: No Hx Carotid Endarterectomy: No Hx Cholecystectomy: No Hx Coronary Artery Bypass Graft: No Hx Coronary Stent: No Hx Thyroidectomy: Yes (partial thyroidectomy) - ANESTHESIA Hx Anesthesia: Yes Hx Anesthesia Reactions: Yes (HALLUCINATION, CONFUSION) Hx Malignant Hyperthermia: No Meds Allergies/Adverse Reactions: Allergies Allergy/AdvReac Type Severity Reaction Status Date / Time aspirin Allergy NAUSEA Verified 08/25/18 15:58 ciprofloxacin Allergy REDNESS Verified 08/25/18 15:58 Sulfa (Sulfonamide Allergy RASH Verified 08/25/18 15:58 Antibiotics) Iodinated Contrast- Oral and AdvReac VOMITING Verified 08/25/18 15:58 IV Dye metformin AdvReac DIARRHEA Verified 08/25/18 15:58 Physical Exam - Head Exam Head Exam: ATRAUMATIC, NORMAL INSPECTION, NORMOCEPHALIC - Eye Exam Eye Exam: EOMI - ENT Exam ENT Exam: Mucous Membranes Dry - Neck Exam Neck exam: Positive for: Normal Inspection - Respiratory Exam Respiratory Exam: Decreased Breath Sounds - Cardiovascular Exam Cardiovascular Exam: REGULAR RHYTHM, +S1, +S2 - GI/Abdominal Exam GI & Abdominal Exam: Normal Bowel Sounds, Soft - Extremities Exam Extremities exam: Positive for: full ROM, normal inspection - Back Exam Back exam: NORMAL INSPECTION - Neurological Exam Neurological exam: Alert, Altered - Psychiatric Exam Psychiatric exam: Normal Affect, Normal Mood - Skin Skin Exam: Dry, Pallor, Warm Additional comments: stage 2 sacral ulcer noted. Results - Vital Signs Recent Vital Signs: Last Vital Signs Temp 98.1 F 08/26/18 16:12 Pulse 66 08/26/18 17:24 Resp 20 08/26/18 16:12 BP 127/76 08/26/18 17:24 Pulse Ox 96 08/26/18 16:12 - Labs Result Diagrams: 08/26/18 06:00 08/26/18 06:00 Labs: Laboratory Results - last 24 hr 08/25/18 08/26/18 08/26/18 16:37 05:25 06:00 WBC 6.3 RBC 3.64 L Hgb 10.9 L Hct 32.6 L MCV 89.5 MCH 30.1 MCHC 33.6 RDW 14.9 H Plt Count 306 D MPV 9.0 Neut % (Auto) 66.6 Lymph % (Auto) 22.6 [place] % (Auto) 7.9 Eos % (Auto) 2.2 Baso % (Auto) 0.7 Neut # (Auto) 4.2 Lymph # (Auto) 1.4 [place] # (Auto) 0.5 Eos # (Auto) 0.1 Baso # (Auto) 0.0 Sodium Potassium Chloride Carbon Dioxide Anion Gap BUN Creatinine Est GFR ( Amer) Est GFR (Non-Af Amer) POC Glucose (mg/dL) 171 H 245 H Random Glucose Hemoglobin A1c Calcium Total Bilirubin AST ALT Alkaline Phosphatase Total Protein Albumin Globulin Albumin/Globulin Ratio 08/26/18 08/26/18 08/26/18 06:00 10:40 10:46 WBC RBC Hgb Hct MCV MCH MCHC RDW Plt Count MPV Neut % (Auto) Lymph % (Auto) [place] % (Auto) Eos % (Auto) Baso % (Auto) Neut # (Auto) Lymph # (Auto) [place] # (Auto) Eos # (Auto) Baso # (Auto) Sodium 138 Potassium 3.6 Chloride 97 L Carbon Dioxide 29 Anion Gap 16 BUN 17 Creatinine 0.6 L Est GFR ( Amer) > 60 Est GFR (Non-Af Amer) > 60 POC Glucose (mg/dL) 340 H Random Glucose 269 H Hemoglobin A1c 10.0 H Calcium 9.4 Total Bilirubin 0.3 AST 32 ALT 39 Alkaline Phosphatase 70 Total Protein 6.7 Albumin 3.3 L Globulin 3.4 Albumin/Globulin Ratio 1.0 08/26/18 08/26/18 15:40 21:24 WBC RBC Hgb Hct MCV MCH MCHC RDW Plt Count MPV Neut % (Auto) Lymph % (Auto) [place] % (Auto) Eos % (Auto) Baso % (Auto) Neut # (Auto) Lymph # (Auto) [place] # (Auto) Eos # (Auto) Baso # (Auto) Sodium Potassium Chloride Carbon Dioxide Anion Gap BUN Creatinine Est GFR ( Amer) Est GFR (Non-Af Amer) POC Glucose (mg/dL) 322 H 155 H Random Glucose Hemoglobin A1c Calcium Total Bilirubin AST ALT Alkaline Phosphatase Total Protein Albumin Globulin Albumin/Globulin Ratio Assessment & Plan (1) Altered mental status Assessment and Plan: 1.) Altered Mental Status: -AMS in the absence of acute head/brain abnormalities. -Given hx of urosepsis admissions, it is likely that the AMS is secondary to UTI. -ID consult input appreciated. -Pt was started on Meropenem; hx of multi-antibiotic allergies. -D5/LR + KCL for hydration and to gradually correct hypokalemia. -Neuro checks. -Pending urine and blood culture. -Monitor intake and output with gao catheter. Status: Acute Priority: High
[2018-08-27] MEDS: Meropenem 500 MG in Sodium Chloride 0.9% 100 ML IVPB SCH ×2 (00:40→13:23)
[2018-08-27] MEDS: Proshield Plus GEL TOP SCH ×3 (00:43→17:16)
[2018-08-27] MEDS: Levothyroxine 75 MCG TAB PO SCH (06:01)
[2018-08-27] MEDS: Insulin Regular 100 units/ml SC SCH ×4 (06:03→23:00)
[2018-08-27 06:16] LABS: BASO % 0.7 % (0.0-2.0); EOS # 0.1 K/uL (0.0-0.7); EOS % 1.3 % (0.0-4.0); HEMOGLOBIN 11.6 g/dL (12.0-16.0); LYMPH # 0.7 K/uL (1.0-4.3); LYMPH % 12.9 % (20.0-40.0); MEAN CELL VOLUME 89.5 fl (81.0-99.0); MEAN CORPUSCULAR HEMOGLOBIN 30.4 pg (27.0-31.0); MEAN PLATELET VOLUME 9.6 fl (7.2-11.7); MONO # 0.4 K/uL (0.0-0.8); MONO % 8.1 % (0.0-10.0); NEUT # 4.3 K/uL (1.8-7.0); RBC 3.82 Mil/uL (3.80-5.20); WHITE BLOOD COUNT 5.5 K/uL (4.8-10.8)
[2018-08-27 06:29] LABS: ALBUMIN 3.4 g/dL (3.5-5.0); ALT/SGPT 23 U/L (9-52); AST/SGOT 31 U/L (14-36); BLOOD UREA NITROGEN 20 mg/dl (7-17); CALCIUM 9.2 mg/dL (8.4-10.2); GFR NON-AFRICAN AMERICAN > 60
[2018-08-27] MEDS: Brimonidine 0.2% 50 DROP/5 ML BOTTLE OS SCH ×2 (09:57→21:16)
[2018-08-27] MEDS: Enoxaparin 40 mg Syringe SC SCH (09:58)
[2018-08-27] MEDS: Santyl Collagenase OINTMENT TOP SCH ×2 (09:59→17:19)
[2018-08-27] MEDS: Insulin Lispro Mix 75/25 100 units/ml (HumaLog) 10ml SC SCH ×2 (10:00→17:18)
[2018-08-27] MEDS: Cholecalciferol 1,000 INTLU TAB PO SCH (10:00)
[2018-08-27] MEDS: PrednisoLONE 1% OPTH SUSP OS SCH ×4 (10:00→21:09)
[2018-08-27] MEDS: Lubricant Eye Drops UD OS SCH ×3 (13:23→17:19)
--- NOTE | 2018-08-27 18:21 | CP.PCM.PN ---
Subjective - Date & Time of Evaluation Date of Evaluation: 08/27/18 Time of Evaluation: 11:00 - Subjective Subjective: patient seen and examined at bedside. Interim events noted No complaints offered at this time denies cp/sob/fever/chills. available diagnostic data reviewed Review of Systems All systems: reviewed and no additional remarkable complaints except mentioned above Objective Vital Signs Stable - Constitutional Appears: Non-toxic, No Acute Distress Head Exam: NORMAL INSPECTION Respiratory Exam: NORMAL BREATHING PATTERN Cardiovascular Exam: +S1, +S2 GI & Abdominal Exam: Soft Neurological Exam: Alert, Awake Psychiatric exam: Normal Affect, Normal Mood Skin Exam: Normal Color, Warm Assessment and Plan monitor vitals monitor labs Cont meds Cont tx consultants appreciated input rest of plan as ordered Objective - Vital Signs/Intake and Output Vital Signs (last 24 hours): Temp Pulse Resp BP Pulse Ox 98 F 62 20 136/72 96 08/27/18 16:29 08/27/18 17:17 08/27/18 16:29 08/27/18 17:17 08/27/18 16:29 - Medications Medications: Current Medications Acetaminophen/Butalbital/Caffeine (Fioricet) 1 tab PO Q8H PRN PRN Reason: Migraine headache Artificial Tears (Lacri-Lube) 1 applic OD HS [facility] Last Admin: 08/26/18 22:20 Dose: 1 applic Artificial Tears (Refresh Opth Soln) 0.1 ml OS TID [facility] Last Admin: 08/27/18 17:19 Dose: 0.1 ml Atorvastatin Calcium (Lipitor) 40 mg PO HS [facility] Last Admin: 08/26/18 21:32 Dose: 40 mg Brimonidine Tartrate (Alphagan 0.2% Opht) 1 drop OS Q12 [facility] Last Admin: 08/27/18 09:57 Dose: 1 drop Cholecalciferol (Vitamin D) 1,000 intlu PO DAILY [facility] Last Admin: 08/27/18 10:00 Dose: 1,000 intlu Clopidogrel Bisulfate (Plavix) 75 mg PO DAILY [facility] Last Admin: 08/27/18 10:01 Dose: 75 mg Collagenase (Santyl) 1 applic TOP BID [facility] Last Admin: 08/27/18 17:19 Dose: 1 applic Dimethicone (Proshield Plus Skin Protectant) 1 applic TOP Q8 [facility] Last Admin: 03/07/19 17:16 Dose: 1 applic Docusate Sodium (Colace) 100 mg PO BID [facility] Last Admin: 08/27/18 17:17 Dose: 100 mg Donepezil HCl (Aricept) 10 mg PO HS [facility] Last Admin: 08/26/18 21:32 Dose: 10 mg Enoxaparin Sodium (Lovenox) 40 mg SC DAILY [facility]; Protocol Last Admin: 08/27/18 09:58 Dose: 40 mg Famotidine (Pepcid) 20 mg PO BID [facility] Last Admin: 08/27/18 17:17 Dose: 20 mg Home Med (Cranberry Fruit Extract/Vit C [Azo Cranberry Softgel]) 1 cap PO DAILY [facility] Last Admin: 08/27/18 17:09 Dose: Not Given Home Med (L Gasseri/B Bifidum/B Longum [[facility] Capsule]) 1 cap PO DAILY [facility] Last Admin: 08/27/18 17:09 Dose: Not Given Insulin Human Regular (Humulin R) 0 units SC ACCU-CHECK [facility]; Protocol Last Admin: 08/27/18 17:18 Dose: 8 units Insulin Lispro Protam/Lispro Human (Humalog Mix 75/25) 5 units SC DIN [facility] Last Admin: 08/27/18 17:18 Dose: 5 units Insulin Lispro Protam/Lispro Human (Humalog Mix 75/25) 11 units SC BRK [facility] Last Admin: 08/27/18 10:00 Dose: 11 units Latanoprost (Xalatan Opht) 1 drop OS HS [facility] Last Admin: 08/26/18 21:41 Dose: 1 drop Levothyroxine Sodium (Synthroid) 75 mcg PO DAILY@0630 [facility] Last Admin: 08/27/18 06:01 Dose: 75 mcg Losartan Potassium (Cozaar) 50 mg PO DAILY@1700 [facility] Last Admin: 08/27/18 17:17 Dose: 50 mg Meclizine HCl (Antivert) 25 mg PO TID PRN PRN Reason: Dizziness Memantine (Namenda) 10 mg PO Q12 [facility] Last Admin: 08/27/18 09:58 Dose: 10 mg Metoprolol Tartrate (Lopressor) 12.5 mg PO DAILY PRN PRN Reason: SBP >139 Last Admin: 08/27/18 09:57 Dose: 12.5 mg Nystatin (Nystop Topical Powder) 1 applic TOP TID [facility] Last Admin: 08/27/18 17:17 Dose: 1 applic Prednisolone Acetate (Pred Forte 1% Opht Susp) 1 drop OS QID [facility] Last Admin: 08/27/18 17:16 Dose: 1 drop Sertraline HCl (Zoloft) 50 mg PO HS [facility] Last Admin: 08/26/18 21:33 Dose: 50 mg Sitagliptin Phosphate (Januvia) 50 mg PO DAILY [facility] Last Admin: 08/27/18 09:59 Dose: 50 mg Timolol Maleate (Timoptic 0.5% Ophth Soln) 1 drop OS Q12 [facility] Last Admin: 08/27/18 10:02 Dose: 1 drop - Labs Labs: 08/27/18 05:40 08/27/18 05:40 PT 12.0 Seconds (9.8-13.1) 08/25/18 16:52 INR 1.1 08/25/18 16:52 APTT 27.8 Seconds (25.6-37.1) 08/25/18 16:52 Assessment and Plan (1) Altered mental status Status: Acute
[2018-08-27] MEDS: Latanoprost 0.005% Opht SOUTION OS SCH (21:18)
[2018-08-27] MEDS: Mineral Oil/White Petrolatum Ophth Oint OD SCH (21:21)
[2018-08-28 06:39] LABS: HEMOGLOBIN 10.8 g/dL (12.0-16.0); MEAN CELL VOLUME 89.7 fl (81.0-99.0); MEAN CORPUSCULAR HEMOGLOBIN 30.1 pg (27.0-31.0); MEAN CORPUSCULAR HGB CONC 33.6 g/dL (33.0-37.0); RBC 3.58 Mil/uL (3.80-5.20); RED CELL DISTRIBUTION WIDTH 14.7 % (11.5-14.5); WHITE BLOOD COUNT 6.3 K/uL (4.8-10.8)
[2018-08-28] MEDS: Insulin Regular 100 units/ml SC SCH ×4 (06:39→21:50)
[2018-08-28] MEDS: Proshield Plus GEL TOP SCH ×3 (06:40→16:34)
[2018-08-28 06:51] LABS: BLOOD UREA NITROGEN 18 mg/dl (7-17); CALCIUM 8.9 mg/dL (8.4-10.2); GFR NON-AFRICAN AMERICAN > 60
[2018-08-28] MEDS: Levothyroxine 75 MCG TAB PO SCH (06:54)
[2018-08-28 08:15] VITALS: TEMP 97.8
[2018-08-28] MEDS: Enoxaparin 40 mg Syringe SC SCH (08:21)
[2018-08-28] MEDS: Insulin Lispro Mix 75/25 100 units/ml (HumaLog) 10ml SC SCH ×2 (08:26→16:33)
[2018-08-28] MEDS: Brimonidine 0.2% 50 DROP/5 ML BOTTLE OS SCH ×2 (08:27→21:43)
[2018-08-28] MEDS: PrednisoLONE 1% OPTH SUSP OS SCH ×4 (08:31→21:39)
[2018-08-28] MEDS: Lubricant Eye Drops UD OS SCH ×3 (08:32→16:36)
[2018-08-28] MEDS: Cholecalciferol 1,000 INTLU TAB PO SCH (08:33)
[2018-08-28] MEDS: Santyl Collagenase OINTMENT TOP SCH ×2 (08:33→16:35)
[2018-08-28] MEDS ORDERED: Potassium Chloride 20 mEq/15 ml LIQ UD PO ONE (09:39)
--- NOTE | 2018-08-28 13:47 | CP.PCM.PN ---
Subjective - Date & Time of Evaluation Date of Evaluation: 08/28/18 Time of Evaluation: 09:00 - Subjective Subjective: 83 y/o female with a PMHx of Diabetes brought for evaluation of an altered mental status.. Patient has hx of recurrent UTI. Referred for ID chinmay Has hx of ESBL UTI in past Started on Merrem IV rx Objective - Vital Signs/Intake and Output Vital Signs (last 24 hours): Temp Pulse Resp BP Pulse Ox 97.8 F 67 19 150/70 96 08/28/18 08:15 08/28/18 08:15 08/28/18 08:15 08/28/18 08:15 08/28/18 08:15 - Medications Medications: Current Medications Acetaminophen/Butalbital/Caffeine (Fioricet) 1 tab PO Q8H PRN PRN Reason: Migraine headache Artificial Tears (Lacri-Lube) 1 applic OD HS [facility] Last Admin: 08/27/18 21:21 Dose: 1 applic Artificial Tears (Refresh Opth Soln) 0.1 ml OS TID [facility] Last Admin: 08/28/18 12:14 Dose: 0.1 ml Atorvastatin Calcium (Lipitor) 40 mg PO HS [facility] Last Admin: 08/27/18 21:12 Dose: 40 mg Brimonidine Tartrate (Alphagan 0.2% Opht) 1 drop OS Q12 [facility] Last Admin: 08/28/18 08:27 Dose: 1 drop Cholecalciferol (Vitamin D) 1,000 intlu PO DAILY [facility] Last Admin: 08/28/18 08:33 Dose: 1,000 intlu Clopidogrel Bisulfate (Plavix) 75 mg PO DAILY [facility] Last Admin: 08/28/18 08:31 Dose: 75 mg Collagenase (Santyl) 1 applic TOP BID [facility] Last Admin: 08/28/18 08:33 Dose: 1 applic Dimethicone (Proshield Plus Skin Protectant) 1 applic TOP Q8 [facility] Last Admin: 08/28/18 08:34 Dose: 1 applic Docusate Sodium (Colace) 100 mg PO BID [facility] Last Admin: 08/28/18 08:29 Dose: 100 mg Donepezil HCl (Aricept) 10 mg PO HS [facility] Last Admin: 08/27/18 21:13 Dose: 10 mg Enoxaparin Sodium (Lovenox) 40 mg SC DAILY [facility]; Protocol Last Admin: 08/28/18 08:21 Dose: 40 mg Famotidine (Pepcid) 20 mg PO BID [facility] Last Admin: 08/28/18 08:30 Dose: 20 mg Home Med (Cranberry Fruit Extract/Vit C [Azo Cranberry Softgel]) 1 cap PO DAILY [facility] Last Admin: 08/27/18 17:09 Dose: Not Given Home Med (L Gasseri/B Bifidum/B Longum [[facility] Capsule]) 1 cap PO DAILY [facility] Last Admin: 08/27/18 17:09 Dose: Not Given Insulin Human Regular (Humulin R) 0 units SC ACCU-CHECK [facility]; Protocol Last Admin: 08/28/18 12:12 Dose: 6 units Insulin Lispro Protam/Lispro Human (Humalog Mix 75/25) 5 units SC DIN [facility] Last Admin: 08/27/18 17:18 Dose: 5 units Insulin Lispro Protam/Lispro Human (Humalog Mix 75/25) 11 units SC BRK [facility] Last Admin: 08/28/18 08:26 Dose: 11 units Latanoprost (Xalatan Opht) 1 drop OS [facility] Last Admin: 08/27/18 21:18 Dose: 1 drop Levothyroxine Sodium (Synthroid) 75 mcg PO DAILY@0630 [facility] Last Admin: 08/28/18 06:54 Dose: 75 mcg Losartan Potassium (Cozaar) 50 mg PO DAILY@1700 [facility] Last Admin: 08/27/18 17:17 Dose: 50 mg Meclizine HCl (Antivert) 25 mg PO TID PRN PRN Reason: Dizziness Memantine (Namenda) 10 mg PO Q12 [facility] Last Admin: 08/28/18 08:30 Dose: 10 mg Metoprolol Tartrate (Lopressor) 12.5 mg PO DAILY PRN PRN Reason: SBP >139 Last Admin: 08/27/18 09:57 Dose: 12.5 mg Nystatin (Nystop Topical Powder) 1 applic TOP TID [facility] Last Admin: 08/28/18 12:13 Dose: 1 applic Prednisolone Acetate (Pred Forte 1% Opht Susp) 1 drop OS QID [facility] Last Admin: 08/28/18 12:14 Dose: 1 drop Sertraline HCl (Zoloft) 50 mg PO [facility] Last Admin: 08/27/18 21:13 Dose: 50 mg Sitagliptin Phosphate (Januvia) 50 mg PO DAILY [facility] Last Admin: 08/28/18 08:28 Dose: 50 mg Timolol Maleate (Timoptic 0.5% Oph Soln) 1 drop OS Q12 [facility] Last Admin: 08/28/18 08:34 Dose: 1 drop - Labs Labs: 08/28/18 06:00 08/28/18 06:00 PT 12.0 Seconds (9.8-13.1) 08/25/18 16:52 INR 1.1 08/25/18 16:52 APTT 27.8 Seconds (25.6-37.1) 08/25/18 16:52 - Constitutional Appears: Non-toxic - Head Exam Head Exam: NORMOCEPHALIC - Eye Exam Eye Exam: absent: PERRL, Scleral icterus - ENT Exam ENT Exam: Mucous Membranes Dry, Normal External Ear Exam - Neck Exam Neck Exam: absent: Lymphadenopathy - Respiratory Exam Respiratory Exam: Decreased Breath Sounds, Rhonchi - Cardiovascular Exam Cardiovascular Exam: REGULAR RHYTHM, +S1, +S2 - GI/Abdominal Exam GI & Abdominal Exam: Distended, Soft - Rectal Exam Rectal Exam: Deferred - Exam Exam: NORMAL INSPECTION - Extremities Exam Extremities Exam: absent: Pedal Edema - Back Exam Back Exam: absent: CVA tenderness (L), CVA tenderness (R) - Neurological Exam Neurological Exam: Alert, Awake - Psychiatric Exam Psychiatric exam: Depressed - Skin Skin Exam: Dry Assessment and Plan (1) Altered mental status Status: Acute (2) Diabetes mellitus type 2 in obese Status: Acute (3) Urinary tract infection Status: Acute - Assessment and Plan (Free Text) Assessment: cultures all negative likely hypoglycemic evant d/c antibiotics
[2018-08-28 16:33] VITALS: BP 148/76; PULSE 62; RESP 20; O2SAT 99
[2018-08-28] MEDS: Mineral Oil/White Petrolatum Ophth Oint OD SCH (21:44)
[2018-08-28] MEDS: Latanoprost 0.005% Opht SOUTION OS SCH (21:45)
--- NOTE | 2018-08-30 22:32 | CP.PCM.DIS ---
Provider - Provider Date of Admission: 08/25/18 18:40 Attending physician: Morris Mcginnis MD Consults: 08/25/18 23:04 Infectious Disease Consult Routine Comment: Consulting Provider: Landon Morton Consulting Physician: Landon Morton Reason for Consult: recurrent UTI 08/26/18 02:17 Case Management Referral Routine Comment: Physician Instructions: Reason For Exam: Reason for Referral: Discharge Planning Nursing Referral for Wound Care Routine Comment: Physician Instructions: Reason For Exam: healing sacral decubiti; redness to right heel Time Spent in preparation of Discharge (in minutes): 30 Hospital Course - Lab Results Lab Results: Micro Results 08/25/18 19:19 Urine,[facility] Urine Culture - Final No Growth (<1,000 CFU/ML) Most Recent Lab Values WBC 6.3 K/uL (4.8-10.8) 08/28/18 06:00 RBC 3.58 Mil/uL (3.80-5.20) L 08/28/18 06:00 Hgb 10.8 g/dL (12.0-16.0) L 08/28/18 06:00 Hct 32.1 % (34.0-47.0) L 08/28/18 06:00 MCV 89.7 fl (81.0-99.0) 08/28/18 06:00 MCH 30.1 pg (27.0-31.0) 08/28/18 06:00 MCHC 33.6 g/dL (33.0-37.0) 08/28/18 06:00 RDW 14.7 % (11.5-14.5) H 08/28/18 06:00 Plt Count 255 K/uL (130-400) 08/28/18 06:00 MPV 9.6 fl (7.2-11.7) 08/27/18 05:40 Neut % (Auto) 77.0 % (50.0-75.0) H 08/27/18 05:40 Lymph % (Auto) 12.9 % (20.0-40.0) L 08/27/18 05:40 [place] % (Auto) 8.1 % (0.0-10.0) 08/27/18 05:40 Eos % (Auto) 1.3 % (0.0-4.0) 08/27/18 05:40 Baso % (Auto) 0.7 % (0.0-2.0) 08/27/18 05:40 Neut # (Auto) 4.3 K/uL (1.8-7.0) 08/27/18 05:40 Lymph # (Auto) 0.7 K/uL (1.0-4.3) L 08/27/18 05:40 [place] # (Auto) 0.4 K/uL (0.0-0.8) 08/27/18 05:40 Eos # (Auto) 0.1 K/uL (0.0-0.7) 08/27/18 05:40 Baso # (Auto) 0.0 K/uL (0.0-0.2) 08/27/18 05:40 PT 12.0 Seconds (9.8-13.1) 08/25/18 16:52 INR 1.1 08/25/18 16:52 APTT 27.8 Seconds (25.6-37.1) 08/25/18 16:52 Sodium 136 mmol/l (132-148) 08/28/18 06:00 Potassium 3.2 MMOL/L (3.6-5.0) L 08/28/18 06:00 Chloride 101 mmol/L (98-107) 08/28/18 06:00 Carbon Dioxide 27 mmol/L (22-30) 08/28/18 06:00 Anion Gap 11 (10-20) 08/28/18 06:00 BUN 18 mg/dl (7-17) H 08/28/18 06:00 Creatinine 0.7 mg/dl (0.7-1.2) 08/28/18 06:00 Est GFR ( Amer) > 60 08/28/18 06:00 Est GFR (Non-Af Amer) > 60 08/28/18 06:00 POC Glucose (mg/dL) 124 mg/dL (65-110) H 08/28/18 21:49 Random Glucose 215 mg/dL (65-105) H 08/28/18 06:00 Hemoglobin A1c 10.0 % (4.2-6.5) H 08/26/18 10:40 Calcium 8.9 mg/dL (8.4-10.2) 08/28/18 06:00 Total Bilirubin 0.4 mg/dl (0.2-1.3) 08/27/18 05:40 AST 31 U/L (14-36) 08/27/18 05:40 ALT 23 U/L (9-52) 08/27/18 05:40 Alkaline Phosphatase 70 U/L (38-126) 08/27/18 05:40 Troponin I < 0.0120 ng/mL (0.00-0.120) 08/25/18 16:52 NT-Pro-B Natriuret Pep 1150 pg/ml (0-900) H 08/25/18 16:52 Total Protein 6.6 G/DL (6.3-8.2) 08/27/18 05:40 Albumin 3.4 g/dL (3.5-5.0) L 08/27/18 05:40 Globulin 3.3 gm/dL (2.2-3.9) 08/27/18 05:40 Albumin/Globulin Ratio 1.0 (1.0-2.1) 08/27/18 05:40 Lipase 60 U/L (23-300) 08/25/18 16:52 Urine Color Yellow (YELLOW) 08/25/18 19:19 Urine Clarity Cloudy (Clear) 08/25/18 19:19 Urine pH 6.0 (5.0-8.0) 08/25/18 19:19 Ur Specific C[place] 1.008 (1.003-1.030) 08/25/18 19:19 Urine Protein 30 mg/dL (NEGATIVE) 08/25/18 19:19 Urine Glucose (UA) Neg mg/dL (NEGATIVE) 08/25/18 19:19 Urine Ketones Negative mg/dL (NEGATIVE) 08/25/18 19:19 Urine Blood Small (NEGATIVE) 08/25/18 19:19 Urine Nitrate Negative (NEGATIVE) 08/25/18 19:19 Urine Bilirubin Negative (NEGATIVE) 08/25/18 19:19 Urine Urobilinogen 0.2-1.0 mg/dL (0.2-1.0) 08/25/18 19:19 Ur Leukocyte Esterase Neg Ajay/uL (Negative) 08/25/18 19:19 Urine RBC (Auto) 10 /hpf (0-3) H 08/25/18 19:19 Urine Microscopic WBC 3 /hpf (0-5) 08/25/18 19:19 Amorphous Sediment Rare /ul (<OCC) H 08/25/18 19:19 Urine Bacteria Rare (<OCC) 08/25/18 19:19 - Hospital Course Hospital Course: This is an 83 y/o female admitted ofr change in mental status. She has a hx of recurrent UTI and sepsis from UTI and hypoglycemia. She was given empirical of iv antibiotics. She was given hydration and responded well. The C and S was negative for infection. She did well w and was discharged in stable condition. Discharge Exam - Head Exam Head Exam: NORMOCEPHALIC - Eye Exam Eye Exam: Normal appearance - Respiratory Exam Respiratory Exam: Clear to PA & Lateral - Cardiovascular Exam Cardiovascular Exam: Clicks - GI/Abdominal Exam GI & Abdominal Exam: Normal Bowel Sounds - Neurological Exam Neurological exam: Oriented x3 - Psychiatric Exam Psychiatric exam: Normal Mood Discharge Plan - Discharge Medications Prescriptions: Potassium Chloride 20 meq PO DAILY #5 tablet.er - Follow Up Plan Condition: FAIR Disposition: HOME/ ROUTINE Instructions: Altered Mental Status (DC) Additional Instructions: hacer bayron con patricio primario dentro de 1 semana Referrals: Morris Mcginnis MD [Staff Provider] - Landon Morton MD [Staff Provider] -
--- NOTE | 2018-09-03 19:10 | PQF ---
PROVIDER RESPONSE TEXT: Left sided weakness due to CVA in the past. REVIEWER QUERY TEXT: Clarification of Clinical Diagnostic Findings Please clarify if the patient has a current left sided weakness due to a CVA in the past --versus -- a hx. of left sided weakness OR: Unable to determine OR: Other explant ion of clinical finding The patient's Clinical Indicators include: -- Query created by: Awilda Cruz on 08/27/2018 1:13 PM Electronically signed by: Adam Chamberlain APN 09/03/2018 7:07 PM
--- NOTE | 2018-09-03 19:10 | PQF ---
PROVIDER RESPONSE TEXT: Agree. POA; pt had a pressure ulcer on her right heel (described as blanchable erythema by railroad car inspector). This is in addition to the stage 2 sacral ulcer that was POA as well. REVIEWER QUERY TEXT: Pressure Ulcer Type Pressure ulcer is documented in the Medical Record. Please specify the location, POA status and stage : of the Foot pressure ulcers listed in the EMR : if in agreement: --OR: Disagree -- OR: Clinically unable to determine -- Other explanation of clinical finding ---Nurses Admission Assessment:: note includes: Pressure Ulcer POA: Yes B/L Posterior Foot: Pressure Area 3/6 Wound RN: note includes: Right heel has blanchable erythema. Left heel clean and intact Stage of each pressure ulcer (National Pressure Ulcer Advisory Panel definitions): -- Stage I: Intact skin with non-blanchable redness of a localized area -- Stage II: Partial thickness skin loss involving dermis with a shallow open ulcer or an open serum -filled blister -- Stage III: Full thickness skin loss involving damage or necrosis of subcutaneous tissue -- Stage IV: Full thickness skin loss with exposed bone, tendon or muscle -- Unstageable: Full thickness tissue loss in which the base of the ulcer is covered by slough and/o r eschar in the wound bed The patient's Clinical Indicators include: -- Query created by: Awilda Cruz on 09/01/2018 7:59 AM Electronically signed by: Adam Chamberlain APN 09/03/2018 7:07 PM
== END 2018-08-28 22:15 | disposition home or self-care (01) | DRG 690 ==
LOC: H.ER 15:49 → OBSVTOIN 18:40 → H.ERHOLD 18:40 → INTOOBSV 18:40 → H.MEDSURG1 21:58
PROVIDERS: ADMIT Family Medicine; ATTEND Family Medicine
DX: N39.0 Urinary tract infection, site not specified (principal); I69.354 Hemiplegia and hemiparesis following cerebral infarction affecting left non-dominant side; E87.6 Hypokalemia; E11.649 Type 2 diabetes mellitus with hypoglycemia without coma; Z16.12 Extended spectrum beta lactamase (ESBL) resistance; F02.80 Dementia in other diseases classified elsewhere, unspecified severity, without behavioral disturbance, psychotic disturbance, mood disturbance, and anxiety; G30.9 Alzheimer's disease, unspecified; L89.152 Pressure ulcer of sacral region, stage 2; L89.619 Pressure ulcer of right heel, unspecified stage; I10 Essential (primary) hypertension; E78.5 Hyperlipidemia, unspecified; E78.00 Pure hypercholesterolemia, unspecified; H54.62 Unqualified visual loss, left eye, normal vision right eye; E03.9 Hypothyroidism, unspecified; F41.9 Anxiety disorder, unspecified; Z79.02 Long term (current) use of antithrombotics/antiplatelets; Z87.01 Personal history of pneumonia (recurrent); Z79.4 Long term (current) use of insulin; Z79.84 Long term (current) use of oral hypoglycemic drugs; Z87.440 Personal history of urinary (tract) infections; Z88.1 Allergy status to other antibiotic agents; Z88.6 Allergy status to analgesic agent; Z88.2 Allergy status to sulfonamides